=== PATIENT | female | born 1950 | race Caucasian/White ===

== ENCOUNTER 2016-11-02 14:44 | Emergency (ER) | payer OTHER ==
[~2016-11-02] VITALS: Ht 157.5 cm; Wt 82.7 kg
[~2016-11-02 14:44] MED LIST: ALBUTERO1 XX; AMT/50 PO; LORTAB OR; METO25TA31 PO; MULTI VITAMIMINERALS OR; OMEG120013 OR; PANT1TAB48 PO; STLS
[2016-11-02 14:47] VITALS: TEMP 36.7; Ht 157.5 cm; Wt 82.7 kg
[2016-11-02] MEDS ORDERED: MULT1TAB19 PO (15:11)
[2016-11-02] MEDS ORDERED: IMTIN5 (15:11)
[2016-11-02] MEDS ORDERED: METO50TA16 PO (15:11)
[2016-11-02] MEDS ORDERED: PANT40TA PO (15:11)
[2016-11-02] MEDS ORDERED: PROB1CAP PO (15:11)
[2016-11-02] MEDS ORDERED: MONT1TAB3 PO (15:11)
[2016-11-02] MEDS ORDERED: LATA0.5S OPB (15:11)
[2016-11-02] MEDS ORDERED: ALEN70TA2 PO (15:11)
[2016-11-02] MEDS ORDERED: OXYCODONE HCL IR 5 MG TAB (IMMEDIATE RELEASE) ONE (16:17)
[2016-11-02 16:25] VITALS: BP 179/83; PULSE 65; O2SAT 91
--- NOTE | 2016-11-02 16:33 | EMERGENCY ROOM VISIT NOTE ---
ED Visit Note First contact with patient: 14:56 Staff note: I have reviewed the Patients chart and have discussed this case with my PA. I generally agree with the ED note and findings.
--- NOTE | 2016-11-02 16:41 | EMERGENCY ROOM VISIT NOTE ---
History First contact with patient: 14:56 Chief Complaint: EYE ASSESSMENT Stated Complaint: SEEING COLORS AND FLASHES OF LIGHT History of Present Illness The patient is a 66 year old female who presents to the Emergency Room with complaints of flashing colored lights in the right eye and has constant thoughts of light which are like little pinpricks. She states that this is new. This just started today. The patient is currently under the care of Dr. Peterson in [place] for her right eye. She was recently diagnosed with glaucoma after being treated for iritis. She is currently on Latanoprost eyedrops. The patient has been on the drops since 10/25/2016 She is compliant. She called Dr. Peterson's office today about her new symptoms and was told the office was closing and therefore she came to the emergency room. The patient originally was seen by her family physician for her right eye discomfort. She was then referred to Dr. Schroeder ophthalmology. He then referred her to Dr. Peterson. She has been under Dr. Peterson's care since September 27.. The patient denies any headache or dizziness. The patient does admit to light sensitivity but that is not new. Review of Systems 6 system review was performed and was negative unless stated otherwise in history of present illness. Past Medical/Surgical History Sinus arrhythmia, asthma, cholecystectomy, hysterectomy, breast reduction, bowel resection, ileostomy and reversal, colostomy and reversal. Social History Smoking Status: Never Smoker Alcohol Use: none Marital Status: Occupation Status: retired Current/Historical Medications Scheduled Alendronate Sodium (Fosamax), 70 MG PO WK Latanoprost (Xalatan 0.005% Oph Liliane), 1 DROPS OPB HS Metoprolol Tartrate (Lopressor) (Lopressor), 25 MG PO QAM Montelukast Sodium (Singulair), 10 MG PO QAM Multiple Vitamins W/ Minerals (One Daily For Women 50+A), 1 TAB PO HS Pantoprazole Sodium (Protonix), 40 MG PO DAILYBB Probiotic Product (Fortify Daily Probiotic), 1 CAP PO QAM Scheduled PRN Sumatriptan Succinate (Imitrex Nasal [place]), 1 SPRAY NA DIRECTED PRN for Migraine Allergies Coded Allergies: Albuterol (Verified Allergy, Severe, HIVES, 11/02/16) Azithromycin (Verified Allergy, Severe, HIVES, 11/02/16) Cephalexin (Verified Allergy, Severe, "HEART PALPATIONS", 11/02/16) Ibuprofen (Verified Allergy, Severe, HIVES, 11/02/16) Physical Exam Vital Signs Date Time Temp Pulse Resp B/P (MAP) Pulse Ox O2 Delivery O2 Flow Rate FiO2 11/02/16 16:25 65 18 179/83 91 Room Air 11/02/16 14:47 36.7 65 18 123/76 94 Room Air Right Eye Acuity: 20/50 Left Eye Acuity: 20/30 Physical Exam GENERAL: 66-year-old white female appears in no acute distress. MENTAL Status: Alert and oriented 3. EYES: PERRLA. EOMs intact. Funduscopic was limited but no significant abnormalities noted. Visual acuity is as above with 20/50 right eye and 20/30 left eye. Average eye pressure of right eye was 15.8 and average eye pressure of left eye was 14.6. NEURO: Grossly intact. Medical Decision & Procedures Medications Administered Medications (Trade) Dose Ordered Sig/Radha Route Start Time Stop Time Status Last Admin Dose Admin Oxycodone HCl (Roxicodone Immediate Rel Tab) 10 mg STK-MED ONCE .ROUTE 11/02/16 16:17 11/02/16 16:18 DC 11/02/16 16:17 10 MG ED Course The patient was evaluated. The patient's EMR medication list were reviewed. I had the dependency case managerproduct support manager Dr. Peterson's office to see if we could get the patient's medical records concerning her right eye. The patient's medical records were reviewed from Dr. Peterson's office. The patient was given OxyIR 10 mg by mouth for eye pain. I contacted Dr. Duran by phone about the patient. He stated with her symptoms that she needs to be seen by an associate of Dr. Peterson's that is ordnance truck installation mechanic. I then contacted the eye center of [facility] and the patient was sent to their [place] office at 5:30 PM today. She will go directly from the ER. The patient was informed of the treatment plan and was in agreement. The patient was independently evaluated by Dr. Ferguson who agreed with treatment plan. The patient was discharged to go directly to the eye center of [facility] located in [place] Medical Decision The patient was evaluated. I felt that the patient needed to be evaluated by ophthalmology today. Therefore I contacted our manager commercial real estate ordnance truck installation mechanic who recommended she be seen by an manager commercial real estate within her current ophthalmology group. They've contacted and were willing to give her an appointment as soon as she leaves emergency room. Impression Primary Impression: Acute right eye pain Additional Impression: Visual changes Departure Information Dispostion Home / Self-Care Condition GOOD Referrals Steven Mckeon M.D. (PCP) Forms HOME CARE DOCUMENTATION FORM, IMPORTANT VISIT INFORMATION, WORK / SCHOOL INSTRUCTIONS Patient Instructions My [facility] Additional Instructions Go directly to the eye center of [facility] located in [place]. Problem Qualifiers
== END 2016-11-02 16:48 | disposition home or self-care (01) ==
LOC: C.EDB 14:46 → C.EDD 16:48
DX: H57.11 Ocular pain, right eye (principal); H53.8 Other visual disturbances; H40.9 Unspecified glaucoma; J45.909 Unspecified asthma, uncomplicated; I49.8 Other specified cardiac arrhythmias; Z79.899 Other long term (current) drug therapy

== ENCOUNTER 2022-01-20 20:44 | Inpatient (IN) ==
--- NOTE | 2022-01-20 22:12 | Emergency Department Note ---
Impression & Plan Lab test positive for detection of COVID-19 virus, Bronchitis, Pancytopenia, Abnormal chest x-ray ED Provider Note NAME: PAOLO CANDELARIA AGE: 71 SEX: F : 1950 ARRIVES VIA: Walk-In INFORMANT: Patient, ED PROVIDER(S): Rafael Ann DO CHIEF COMPLAINT: Cough HPI: The patient is a 71-year-old female who states that she has a history of breathing difficulties in the past who presented to the emergency department for an evaluation of difficulty breathing and cough. The patient states she has fever and cough as well as headache and malaise. She states that the symptoms began over the last few days. She has been using her inhaler at home without significant relief. She was not seen by a physician prior to coming to the emergency department this evening. She has no sick contacts but does interact with her grandchildren. She denies having any vomiting. She denies having any lower extremity swelling or pain. ROS: See above HPI for pertinent positives & negatives. A total of 10 systems reviewed and were otherwise negative. PAST MEDICAL HISTORY: See Below PAST SURGICAL HISTORY: See Below FAMILY HISTORY: See Below SOCIAL HISTORY: See Below HOME MEDICATIONS: See Below ALLERGIES: See Below VITALS: See Below PHYSICAL EXAMINATION: GENERAL: Patient is awake alert in no acute distress patient is resting comfortably and showing no signs of anxiety EYES: The conjunctivae are clear. The pupils are round and reactive. EARS, NOSE, MOUTH AND THROAT: The nose is without any evidence of any deformity. NECK: The neck is nontender and supple. RESPIRATORY: Diminished breath sounds are noted in the right lung field. There is mild wheezing in both upper lung amaya. There is no tachypnea or conversational dyspnea. CARDIOVASCULAR: Regular rate and rhythm noted there no murmurs rubs or gallops normal S1 normal S2. GASTROINTESTINAL: The abdomen is soft. Abdomen is nontender. MUSCULOSKELETAL/EXTREMITIES: There is no evidence of gross deformity full range of motion is noted in the hips and shoulders. SKIN: There is no obvious evidence of any rash. There are no petechiae, pallor or cyanosis noted. NEUROLOGIC: Patient is awake alert and oriented x3 MEDICAL DECISION MAKING: Patient is a 71-year-old female who presented to the emergency department for an evaluation of difficulty breathing. The patient did have significant difficulty breathing with any exertion. The patient appears to have more of a bronchitis at this time although chest x-ray is abnormal and shows an elevated hemidiaphragm. The patient was found to have a positive COVID test as well. She was treated with Decadron in the emergency department. She was reevaluated multiple times. The patient's condition was discussed with the on-call [facility]. They have agreed to evaluate the patient in the emergency department for further management and disposition. Triage Nursing notes reviewed. Prior medical records reviewed Vital Signs: reviewed and remarkable for low-grade fever and hypertension. Differential diagnosis: Reactive airway disease, pneumonia, pneumothorax, COPD, CHF, infections, cardiac ischemia, pulmonary embolism, musculoskeletal, gastrointestinal, as well as other pathologies. ER treatment provided: See below Diagnostics interpreted by me: ECG: EKG was obtained in the emergency department. My interpretation is normal sinus rhythm at 82 bpm. There was no ectopy. Nonspecific ST abnormalities were noted in the anterior and low lateral leads. T wave versions were noted anteriorly. This was compared to a tracing from December 22, 2020. No changes were noted. Cardiac Monitoring: An order was placed for continuous cardiac monitoring. The monitor shows a rate of 82 bpm with sinus rhythm. Laboratory studies: As stated above and show below. Imaging studies: See below Consultation(s): I discussed this case with Dr. Dougherty who is on-call for the [facility] group. Past Med/Surg History Medical History Asthma CAD (coronary artery disease) Chronic obstructive pulmonary disease Cirrhosis Cirrhosis of liver not due to alcohol Diverticulitis Esophageal varices hx of banding Fibromyalgia Glaucoma bilt HTN (hypertension) Incarcerated hernia of abdominal cavity Malignant neoplasm of left breast, stage 1, estrogen receptor positive (09/26/17) "Status post bilateral breast reduction in 1998 Status post abnormal left breast mammogram Status post ultrasound core needle biopsy September 26, 2017 Infiltrating carcinoma, grade 2 Estrogen receptor positive, progesterone receptor positive, 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 Status post needle localization lumpectomy and sentinel lymph node biopsy October 16, 2017 Stage pT1c pN0 M0 Status post completion of radiation therapy January 01, 2018. She received 5130 cGy utilizing hypo-fractionation." On 11/19/17 11:17 Blossom Brandt wrote "Status post bilateral breast reduction in 1998 Status post abnormal left breast mammogram Status post ultrasound core needle biopsy September 26, 2017 Infiltrating carcinoma, grade 2 Estrogen receptor positive, progesterone receptor positive, 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 Status post needle localization lumpectomy and sentinel lymph node biopsy October 16, 2017 Stage pT1c pN0 M0 Status post completion of radiation therapy January 01, 2018. She received 5130 centigrade utilizing hypo-fractionation. Migraine Osteoarthritis Rectal vaginal fistula Sinus arrhythmia Thyroid goiter just monitoring for now Surgical History H/O arthroscopy of right knee H/O bilateral breast reduction surgery H/O tooth extraction all teeth removed H/O: hysterectomy History of appendectomy History of bilateral cataract extraction History of bilateral salpingo-oophorectomy (BSO) History of cholecystectomy History of closure of ileostomy 1998---1 month after created History of colonoscopy History of colostomy reversal 1997--8 weeks after colectomy History of ear surgery right ear "doctor broke my ear drum to drain the fluid" History of esophagogastroduodenoscopy (EGD) History of ileostomy 1998 History of incisional hernia repair x8 History of lumpectomy of left breast with lymph node removal History of needle biopsy left breast---malignant History of partial colectomy 1997--diverticuli pocket ruptured @ [facility] History of repair of rectocele History of surgical removal of ganglion cyst right wrist History of tonsillectomy and adenoidectomy History of total right knee replacement x2 Status post correction of deviated nasal septum Status post left foot surgery planter fascitis Status post trigger finger release right thumb Family History Sister Family history of diabetes mellitus Grandfather (Paternal) Family history of diabetes mellitus Family hx of colon cancer Grandfather (Maternal) Family history of diabetes mellitus Family/Other Family history of diabetes mellitus 2 cousins Other No family history of adverse response to anesthesia Social History Smoking Status: Never smoker Second Hand Exposure: Yes ( smoked); Hx Alcohol Use: No Hx Substance Use: No Preferred Language: Yakut Communication Ability: Effective Sales Promotion Manager Required: No Beliefs That Will Affect Care: None marital status: Current Living Situation: Spouse and Family current occupational status: retired Feels Safe at Home: Yes Assistive Devices: Denture - Upper, Denture - Lower, Glasses and Walker Allergies Allergies Allergy/AdvReac Type Severity Reaction Status Date / Time albuterol Allergy Severe Hives Verified 01/20/22 22:30 cephalexin Allergy Severe "HEART Verified 01/20/22 22:30 PALPATIONS" ibuprofen Allergy Severe Hives Verified 01/20/22 22:30 azithromycin Allergy Unknown Unknown Verified 01/20/22 22:30 tramadol Allergy Unknown Unverified 01/20/22 22:31 morphine AdvReac Unknown PT STATES Verified 01/20/22 22:30 "BUILT UP A TOLERANCE TO MED, DOESN'T WORK". OPOIDS Allergy Severe DECREASE Uncoded 01/20/22 22:30 RESPIRATIONS--RECEIVED NARCAN Home Meds Home Medications Medication Instructions Recorded Confirmed calcium carbonate 600 mg-vitamin 1 cap PO BID 02/11/18 01/20/22 D3 10 mcg (400 unit) capsule anastrozole 1 mg tablet 1 mg PO QAM 04/11/18 01/20/22 latanoprost 0.005 % eye drops 1 drp OPB HS 04/11/18 01/20/22 montelukast 10 mg tablet 10 mg PO QAM 04/11/18 01/20/22 pantoprazole 40 mg tablet,delayed 40 mg PO DAILYBB 04/11/18 01/20/22 release levalbuterol tartrate 45 1 puff inhalation Q4H PRN Wheezing 11/11/18 01/20/22 mcg/actuation aerosol inhaler hydrochlorothiazide 25 mg tablet 25 mg PO QAM 01/21/19 01/20/22 milk thistle seed extract 175 mg 175 mg PO QAM 01/21/19 01/20/22 tablet psyllium husk 3.4 gram/5.4 gram 2 tsp PO TID PRN Constipation 01/21/19 01/20/22 oral powder (Metamucil) docusate sodium 100 mg capsule 100 mg PO TID PRN Constipation 07/28/19 01/20/22 (Stool Softener) acetaminophen 650 mg 650 mg PO Q8H PRN Pain 07/14/20 01/20/22 tablet,extended release (Tylenol 8 Hour) cyclosporine 0.05 % eye drops in a 1 drp ophthalmic (eye) Q12H 12/22/20 01/20/22 dropperette (Restasis) cinnamon bark 500 mg capsule 1,000 mg PO HS 01/20/22 01/20/22 (Cinnamon) cyclosporine 0.09 % eye drops in a 1 drp OPB BID 01/20/22 01/20/22 dropperette (Cequa) fluticasone propionate 110 2 puff inhalation AMPM 01/20/22 01/20/22 mcg/actuation HFA aerosol inhaler furosemide 20 mg tablet 20 mg PO QAM 01/20/22 01/20/22 garlic 100 mg tablet 1,000 mg PO BID 01/20/22 01/20/22 metoprolol tartrate 25 mg tablet 25 mg PO QAM 01/20/22 01/20/22 propranolol 10 mg tablet 10 mg PO BID 01/20/22 01/20/22 Previous Rx's Medication Instructions Recorded blood sugar diagnostic (Boost My AdsTouch #50 ea 07/15/20 Verio test strips) lancets 30 gauge (OneTouch Delica #100 ea 07/15/20 Lancets) meclizine 12.5 mg tablet 12.5 mg PO TID PRN dizziness #30 07/16/20 tabs Results & Data (ED) Vital Signs Vital Signs - 24 hr 01/20/22 20:54 01/20/22 21:52 01/20/22 21:52 Temperature 37.7 C H Temperature Source Temporal Artery Scan Pulse Rate 86 Pulse Rate [Apical] Respiratory Rate 24 Respiratory Effort / Characteristics Non-Labored Spontaneous Non-Labored Spontaneous Respiratory Depth Normal Normal Respiratory Pattern Regular Blood Pressure 152/75 H Blood Pressure [Right Arm] Blood Pressure Mean 100 Blood Pressure Mean [Right Arm] Blood Pressure Position [Right Arm] Pulse Oximetry 95 94 Oxygen Delivery Method Room Air Room Air Room Air Sepsis Recent Fever Within 48 Hours Yes Sepsis New/Unexplained Change in Mental Status N/A Sepsis Action Taken by Nursing No Action Required 01/20/22 21:52 01/20/22 21:57 01/20/22 23:00 Temperature Temperature Source Pulse Rate Pulse Rate [Apical] 80 82 Respiratory Rate 25 H 16 Respiratory Effort / Characteristics Respiratory Depth Normal Respiratory Pattern Blood Pressure Blood Pressure [Right Arm] 143/57 H 148/68 H Blood Pressure Mean Blood Pressure Mean [Right Arm] 85 94 Blood Pressure Position [Right Arm] Lying Lying Pulse Oximetry 93 93 Oxygen Delivery Method Room Air Room Air Room Air Sepsis Recent Fever Within 48 Hours Sepsis New/Unexplained Change in Mental Status Sepsis Action Taken by Shelter Medications Current Medication List: was personally reviewed by me Laboratory Data Attestation: I reviewed the patient's lab results. Result diagrams: 01/20/22 21:49 01/20/22 21:49 Lab Results 01/20/22 01/20/22 01/20/22 Range/Units 21:49 21:49 21:49 WBC 2.64 L (4.8-10.8) K/ul RBC 3.51 L (3.93-5.22) M/uL Hgb 9.9 L (12.0-16.0) g/dl Hct 31.7 L (34.1-44.9) % MCV 90.3 (80.0-100.0) fL MCH 28.2 (25.0-34.0) pg MCHC 31.2 L (32.0-36.0) g/dL RDW Std Deviation 56.8 H (36.4-46.3) fL RDW Coeff of Monster 17.2 H (11.5-14.5) % Plt Count 71 L (130-400) K/uL MPV 10.8 (9.4-12.3) fL Immature Gran % (Auto) 0.0 % Neut % (Auto) 39.7 % Lymph % (Auto) 23.1 % Fajardo % (Auto) 36.0 % Eos % (Auto) 0.8 % Baso % (Auto) 0.4 % Neut # (Auto) 1.05 L (1.4-6.5) K/uL Lymph # (Auto) 0.61 L (1.2-3.4) K/uL Fajardo # (Auto) 0.95 H (0.24-0.82) K/uL Eos # (Auto) 0.02 (0-0.50) K/uL Baso # (Auto) 0.01 (0-0.2) K/uL Immature Gran # (Auto) 0.00 (0.00-0.02) K/uL Platelet Estimate Decreased L (Normal) PT 12.4 H (9.0-12.0) Seconds INR 1.2 H (0.9-1.1) APTT 28.0 (21.0-31.0) Seconds PTT Ratio 1.0 Sodium 136 (136-145) mmol/L Potassium 3.5 (3.5-5.1) mmol/L Chloride 102 (98-107) mmol/L Carbon Dioxide 28 (21-32) mmol/L Anion Gap 6 (3-11) BUN 9 (6-23) mg/dl Creatinine 0.86 (0.6-1.2) mg/dl Est Cr Clr Drug Dosing 59.6 ml/min Est GFR ( Amer) 79.9 ml/min Est GFR (Non-Af Amer) 68.9 ml/min BUN/Creatinine Ratio 10.5 (10-20) Glucose 80 (70-99(Fasting)) mg/dl Calcium 8.5 (8.5-10.1) mg/dl Magnesium 1.6 L (1.7-2.4) mg/dl Total Bilirubin 1.0 (0.2-1.0) mg/dl AST 140 H (13-39) U/L ALT 45 (7-52) U/L Alkaline Phosphatase 102 (34-104) U/L Troponin I High Sens 11.7 (0-14) pg/ml Total Protein 6.5 (6.0-8.3) gm/dl Albumin 3.3 L (3.4-5.0) gm/dl Globulin 3.2 (2.5-4.0) gm/dl Albumin/Globulin Ratio 1.0 (0.9-2) SARS-CoV-2 (PCR) (Negative) Influenza Type A (PCR) (Neg) Influenza Type B (PCR) (Neg) RSV (RT-PCR) (Neg) 01/20/22 01/20/22 Range/Units 21:49 21:49 WBC (4.8-10.8) K/ul RBC (3.93-5.22) M/uL Hgb (12.0-16.0) g/dl Hct (34.1-44.9) % MCV (80.0-100.0) fL MCH (25.0-34.0) pg MCHC (32.0-36.0) g/dL RDW Std Deviation (36.4-46.3) fL RDW Coeff of Monster (11.5-14.5) % Plt Count (130-400) K/uL MPV (9.4-12.3) fL Immature Gran % (Auto) % Neut % (Auto) % Lymph % (Auto) % Fajardo % (Auto) % Eos % (Auto) % Baso % (Auto) % Neut # (Auto) (1.4-6.5) K/uL Lymph # (Auto) (1.2-3.4) K/uL Fajardo # (Auto) (0.24-0.82) K/uL Eos # (Auto) (0-0.50) K/uL Baso # (Auto) (0-0.2) K/uL Immature Gran # (Auto) (0.00-0.02) K/uL Platelet Estimate (Normal) PT (9.0-12.0) Seconds INR (0.9-1.1) APTT (21.0-31.0) Seconds PTT Ratio Sodium (136-145) mmol/L Potassium (3.5-5.1) mmol/L Chloride (98-107) mmol/L Carbon Dioxide (21-32) mmol/L Anion Gap (3-11) BUN (6-23) mg/dl Creatinine (0.6-1.2) mg/dl Est Cr Clr Drug Dosing ml/min Est GFR ( Amer) ml/min Est GFR (Non-Af Amer) ml/min BUN/Creatinine Ratio (10-20) Glucose (70-99(Fasting)) mg/dl Calcium (8.5-10.1) mg/dl Magnesium (1.7-2.4) mg/dl Total Bilirubin (0.2-1.0) mg/dl AST (13-39) U/L ALT (7-52) U/L Alkaline Phosphatase (34-104) U/L Troponin I High Sens Cancelled (0-14) pg/ml Total Protein (6.0-8.3) gm/dl Albumin (3.4-5.0) gm/dl Globulin (2.5-4.0) gm/dl Albumin/Globulin Ratio (0.9-2) SARS-CoV-2 (PCR) POSITIVE A* (Negative) Influenza Type A (PCR) Negative (Neg) Influenza Type B (PCR) Negative (Neg) RSV (RT-PCR) Negative (Neg) Administered Medications Discontinued Medications Acetaminophen (Acetaminophen 500 Mg Tab) 500 mg PO NOW STA Stop: 01/20/22 22:57 Last Admin: 01/20/22 23:06 Dose: 500 mg Documented By: SS Dexamethasone Sodium Phosphate (DexamethasonePf 10 Mg/Ml Vial) 10 mg IV NOW ONE Stop: 01/20/22 22:52 Last Admin: 01/20/22 23:06 Dose: 10 mg Documented By: SS Sodium Chloride (Nss 1000ml) 1,000 mls @ 999 mls/hr IV .Q1H1M ONE Stop: 01/20/22 23:52 Last Admin: 01/20/22 23:06 Dose: 999 mls/hr Documented By: SS Magnesium Sulfate/Dextrose (Magnesium Sulfate / D5w) 1 gm in 100 mls @ 100 mls/hr IV NOW STA Stop: 01/20/22 23:51 Last Admin: 01/20/22 23:07 Dose: 100 mls/hr Documented By: SS Imaging Data Attestation: I personally reviewed and interpreted this imaging study as follows: My Impression: 1 view chest x-ray was obtained in the emergency department. My interpretation is elevation of the right hemidiaphragm which is chronic. There is also increased interstitial markings in the upper lung amaya. Discharge Plan Visit Data Chief Complaint: Shortness of Breath/Dyspnea Stated Complaint: FEVER, COUGH, SOB ED Provider: Rafael Ann Discharge Problem: Lab test positive for detection of COVID-19 virus, Bronchitis, Pancytopenia, Abnormal chest x-ray Patient Disposition: Being Evaluated by Hospitalist Forms Stand Alone Forms: My [facility] Prescriptions Prescriptions: No Action calcium carbonate-vitamin D3 600 mg(1,500mg) -400 unit capsule 1 cap PO BID levalbuterol tartrate 45 mcg/actuation HFA aerosol inhaler 1 puff inhalation Q4H PRN (Reason: Wheezing) docusate sodium [Stool Softener] 100 mg Capsule 100 mg PO TID PRN (Reason: Constipation) acetaminophen [Tylenol 8 Hour] 650 mg Tablet Extended Release 650 mg PO Q8H PRN (Reason: Pain) (DME) OneTouch Verio test strips Strip See Rx Instructions .ROUTE .MEDSUPPLY Qty: 50 0RF Rx Instructions: Check Blood sugar levels once per day as advised (DME) lancets [OneTouch Delica Lancets] 30 gauge misc See Rx Instructions .ROUTE .MEDSUPPLY Qty: 100 0RF Rx Instructions: Check Blood sugar levels once per day as advised meclizine 12.5 mg Tablet 12.5 mg PO TID PRN (Reason: dizziness) Qty: 30 0RF latanoprost 0.005 % drops 1 drp OPB HS anastrozole 1 mg tablet 1 mg PO QAM pantoprazole 40 mg tablet,delayed release (DR/EC) 40 mg PO DAILYBB montelukast 10 mg tablet 10 mg PO QAM hydrochlorothiazide 25 mg Tablet 25 mg PO QAM Metamucil 3.4 gram/5.4 gram Powder 2 tsp PO TID PRN (Reason: Constipation) milk thistle seed extract 175 mg Tablet 175 mg PO QAM cyclosporine [Restasis] 0.05 % Dropperette 1 drp OPHTHALMIC (EYE) Q12H cinnamon bark [Cinnamon] 500 mg Capsule 1,000 mg PO HS fluticasone propionate 110 mcg/actuation HFA aerosol inhaler 2 puff INHALATION AMPM propranolol 10 mg tablet 10 mg PO BID garlic 100 mg Tablet 1,000 mg PO BID metoprolol tartrate 25 mg tablet 25 mg PO QAM furosemide 20 mg tablet 20 mg PO QAM Cequa 0.09 % dropperette 1 drp OPB BID Referrals Referrals: Mark Caal MD [Primary Care Provider] -
[2022-01-20 22:13] LABS: INR 1.2 (0.9-1.1); Prothrombin Time 12.4 Seconds (9.0-12.0)
[2022-01-20 22:22] LABS: Albumin Level 3.3 gm/dl (3.4-5.0); BUN Creatinine Ratio 10.5 (10-20); Calcium 8.5 mg/dl (8.5-10.1); Creatinine Clr Calc Pharmacy 59.6 ml/min; Est GFR (African American) 79.9 ml/min; Est GFR (Non-African American) 68.9 ml/min; Globulin 3.2 gm/dl (2.5-4.0); Magnesium 1.6 mg/dl (1.7-2.4); Potassium 3.5 mmol/L (3.5-5.1); Total Protein 6.5 gm/dl (6.0-8.3)
[2022-01-20 22:31] LABS: Basophils # (auto) 0.01 K/uL (0-0.2); Basophils % (auto) 0.4 %; Eosinophils # (auto) 0.02 K/uL (0-0.50); Eosinophils % (auto) 0.8 %; Hematocrit (blood only) 31.7 % (34.1-44.9); Hemoglobin 9.9 g/dl (12.0-16.0); Lymphocytes # (auto) 0.61 K/uL (1.2-3.4); Lymphocytes % (auto) 23.1 %; Mean Corpuscular Hemoglobin 28.2 pg (25.0-34.0); Mean Corpuscular Hgb Conc 31.2 g/dL (32.0-36.0); Mean Corpuscular Volume 90.3 fL (80.0-100.0); Mean Platelet Volume 10.8 fL (9.4-12.3); Monocytes # (auto) 0.95 K/uL (0.24-0.82); Neutrophils # (auto) 1.05 K/uL (1.4-6.5); Neutrophils % (auto) 39.7 %; Platelet Count 71 K/uL (130-400); Platelet Estimate Decreased (Normal); RDW Coefficient of Variation 17.2 % (11.5-14.5); RDW Standard Deviation 56.8 fL (36.4-46.3); Red Blood Count 3.51 M/uL (3.93-5.22); White Blood Count 2.64 K/ul (4.8-10.8)
[2022-01-20 22:43] LABS: Influenza A virus by PCR Negative (Neg); Influenza B virus by PCR Negative (Neg); RSV by PCR Negative (Neg)
[2022-01-20 22:44] LABS: Troponin I High Sensitivity 11.7 pg/ml (0-14)
[2022-01-20 22:45] LABS: SARS CoV2 RNA(COVID-19) InHosp POSITIVE (Negative)
[2022-01-20] MEDS ORDERED: dexAMETHasone**PF** 10 MG/ML VIAL IV ONE (22:51)
[2022-01-20] MEDS ORDERED: SODIUM CHLORIDE 0.9% 1000ML 1,000 ML IV ONE (22:52)
[2022-01-20] MEDS ORDERED: MAGNESIUM SULFATE / D5W 1 GM/100 ML BAG IV STA (22:52)
[2022-01-20] MEDS ORDERED: ACETAMINOPHEN 500 MG TAB PO STA (22:56)
[2022-01-20] MEDS ORDERED: POLYETHYLENE (MIRALAX) 17 GM PACK PO PRN (23:44)
[2022-01-20] MEDS ORDERED: ACETAMINOPHEN 325 MG TAB PO PRN (23:44)
[2022-01-20] MEDS ORDERED: LACTATED RINGER'S 500 ML IV ONE (23:48)
--- NOTE | 2022-01-21 01:25 | History & Physical Report ---
Date of Service January 21, 2022 Assessment & Plan (1) COVID-19: Plan: - fever, cough, headache for past 2-3 days - SpO2 >92-93% on RA in ED - Oxygen as needed to keep SpO2 >92% - s/p dexamethasone in ED - not requiring oxygen at this time and so will hold dexamethasone - monitor for now - supportive care (2) Pancytopenia: Plan: - WBC 2.64, hgb 9.9, PLT 71 with WBC 4.18, hgb 12.4, PLT 80s-135 on 09/2021 labs - has had leukopenia and thrombocytopenia to this degree in the past and likely related to her cirrhosis - anemia to 9.9 is lowest it has been recently - no signs of bleeding - likely in the setting of COVID19 infection - will monitor for now (3) Cirrhosis: Plan: - appears compensated without ascites on exam, AAOx3, no GI bleed noted on history or exam - continue propranolol, Lasix (4) Asthma: Plan: - not in exacerbation, no wheezes noted - continue home inhalers (5) HTN (hypertension): Plan: - continue home medications (6) Paroxysmal atrial tachycardia: Plan: - continue metoprolol Plan DVT ppx: heparin Code Status: Full Code Dispo: med/surg Raymundo Dougherty MD Hospital Medicine Admission and Anticipated Discharge Date Admission Date: 01/20/2022 History of Present Illness Chief Complaint: fever, cough Primary Care Provider: Mark Caal MD The patient is a 71 year old woman with pmh asthma, HTN, cirrhosis, pAtach, GERD, h/o breast CA s/p tx who presented with a couple days of fever, cough, shortness of breath. She reports that she has been having a dry cough for the past couple of days as well as fevers at home. She also reports headache, decrease appetite. She denies productive cough, LOC, dysuria, abdominal pain, diarrhea, nausea or vomiting. She cannot recall and other sick contacts. She lives with her who is asymptomatic. She is vaccinated fully for COVID19 with one booster. She denies tobacco or alcohol use or other drug use. In the ED, vitals were significant for SpO2 92-95%. Labs were significant for pancytopenia with WBC 2.64, hgb 9.9, PLT 71 (WBC 4.18, hgb 12.4, PLT 80s-135 on 09/2021 labs), INR 1.2, mg 1.6, AST 140, ALT 45, SARS-CoV-2 positive. CXR showed chronic right hemidiaphragm elevation. She was given 10mg dexamethasone, IVF and admitted to medicine. Allergies Allergy/AdvReac Type Severity Reaction Status Date / Time albuterol Allergy Severe Hives Verified 01/20/22 22:30 cephalexin Allergy Severe "HEART Verified 01/20/22 22:30 PALPATIONS" ibuprofen Allergy Severe Hives Verified 01/20/22 22:30 azithromycin Allergy Unknown Unknown Verified 01/20/22 22:30 tramadol Allergy Unknown Unverified 01/20/22 22:31 morphine AdvReac Unknown PT STATES Verified 01/20/22 22:30 "BUILT UP A TOLERANCE TO MED, DOESN'T WORK". OPOIDS Allergy Severe DECREASE Uncoded 01/20/22 22:30 RESPIRATIONS--RECEIVED NARCAN Home Medications Medication Instructions Recorded Confirmed Type calcium carbonate 600 mg-vitamin 1 cap PO BID 02/11/18 01/20/22 History D3 10 mcg (400 unit) capsule anastrozole 1 mg tablet 1 mg PO QAM 04/11/18 01/20/22 History latanoprost 0.005 % eye drops 1 drp OPB HS 04/11/18 01/20/22 History montelukast 10 mg tablet 10 mg PO QAM 04/11/18 01/20/22 History pantoprazole 40 mg tablet,delayed 40 mg PO DAILYBB 04/11/18 01/20/22 History release levalbuterol tartrate 45 1 puff inhalation Q4H PRN Wheezing 11/11/18 01/20/22 History mcg/actuation aerosol inhaler hydrochlorothiazide 25 mg tablet 25 mg PO QAM 01/21/19 01/20/22 History milk thistle seed extract 175 mg 175 mg PO QAM 01/21/19 01/20/22 History tablet psyllium husk 3.4 gram/5.4 gram 2 tsp PO TID PRN Constipation 01/21/19 01/20/22 History oral powder (Metamucil) docusate sodium 100 mg capsule 100 mg PO TID PRN Constipation 07/28/19 01/20/22 History (Stool Softener) acetaminophen 650 mg 650 mg PO Q8H PRN Pain 07/14/20 01/20/22 History tablet,extended release (Tylenol 8 Hour) blood sugar diagnostic (OneTouch #50 ea 07/15/20 Rx Verio test strips) lancets 30 gauge (OneTouch Delica #100 ea 07/15/20 Rx Lancets) meclizine 12.5 mg tablet 12.5 mg PO TID PRN dizziness #30 07/16/20 01/20/22 Rx tabs cyclosporine 0.05 % eye drops in a 1 drp ophthalmic (eye) Q12H 12/22/20 01/20/22 History dropperette (Restasis) cinnamon bark 500 mg capsule 1,000 mg PO HS 01/20/22 01/20/22 History (Cinnamon) cyclosporine 0.09 % eye drops in a 1 drp OPB BID 01/20/22 01/20/22 History dropperette (Cequa) fluticasone propionate 110 2 puff inhalation AMPM 01/20/22 01/20/22 History mcg/actuation HFA aerosol inhaler furosemide 20 mg tablet 20 mg PO QAM 01/20/22 01/20/22 History garlic 100 mg tablet 1,000 mg PO BID 01/20/22 01/20/22 History metoprolol tartrate 25 mg tablet 25 mg PO QAM 01/20/22 01/20/22 History propranolol 10 mg tablet 10 mg PO BID 01/20/22 01/20/22 History Past Med/Surg History Medical History Asthma CAD (coronary artery disease) Chronic obstructive pulmonary disease Cirrhosis Cirrhosis of liver not due to alcohol Diverticulitis Esophageal varices hx of banding Fibromyalgia Glaucoma bilt HTN (hypertension) Incarcerated hernia of abdominal cavity Malignant neoplasm of left breast, stage 1, estrogen receptor positive (09/26/17) "Status post bilateral breast reduction in 1998 Status post abnormal left breast mammogram Status post ultrasound core needle biopsy September 26, 2017 Infiltrating carcinoma, grade 2 Estrogen receptor positive, progesterone receptor positive, 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 Status post needle localization lumpectomy and sentinel lymph node biopsy October 16, 2017 Stage pT1c pN0 M0 Status post completion of radiation therapy January 01, 2018. She received 5130 cGy utilizing hypo-fractionation." On 11/19/17 11:17 Blossom Jenn Brandt wrote "Status post bilateral breast reduction in 1998 Status post abnormal left breast mammogram Status post ultrasound core needle biopsy September 26, 2017 Infiltrating carcinoma, grade 2 Estrogen receptor positive, progesterone receptor positive, 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 Status post needle localization lumpectomy and sentinel lymph node biopsy October 16, 2017 Stage pT1c pN0 M0 Status post completion of radiation therapy January 01, 2018. She received 5130 centigrade utilizing hypo-fractionation. Migraine Osteoarthritis Rectal vaginal fistula Sinus arrhythmia Thyroid goiter just monitoring for now Surgical History H/O arthroscopy of right knee H/O bilateral breast reduction surgery H/O tooth extraction all teeth removed H/O: hysterectomy History of appendectomy History of bilateral cataract extraction History of bilateral salpingo-oophorectomy (BSO) History of cholecystectomy History of closure of ileostomy 1998---1 month after created History of colonoscopy History of colostomy reversal 1997--8 weeks after colectomy History of ear surgery right ear "doctor broke my ear drum to drain the fluid" History of esophagogastroduodenoscopy (EGD) History of ileostomy 1999 History of incisional hernia repair x8 History of lumpectomy of left breast with lymph node removal History of needle biopsy left breast---malignant History of partial colectomy 1997--diverticuli pocket ruptured @ [facility] History of repair of rectocele History of surgical removal of ganglion cyst right wrist History of tonsillectomy and adenoidectomy History of total right knee replacement x2 Status post correction of deviated nasal septum Status post left foot surgery planter fascitis Status post trigger finger release right thumb Family History Sister Family history of diabetes mellitus Grandfather (Paternal) Family history of diabetes mellitus Family hx of colon cancer Grandfather (Maternal) Family history of diabetes mellitus Family/Other Family history of diabetes mellitus 2 cousins Other No family history of adverse response to anesthesia Social History Smoking Status: Never smoker Second Hand Exposure: Yes ( smoked); Hx Alcohol Use: No Hx Substance Use: No Preferred Language: Swazi Communication Ability: Effective Cook Relief Required: No Beliefs That Will Affect Care: None marital status: Current Living Situation: Spouse and Family current occupational status: retired Feels Safe at Home: Yes Assistive Devices: Denture - Upper, Denture - Lower, Glasses and Walker Review of Systems Review of Systems: All systems reviewed & are unremarkable except as noted in Subjective Physical Exam Constitutional: + obese; no acute distress, not ill appearing, no altered mental status and not lethargic Eyes: PERRL, conjunctivae normal, anicteric sclerae ENMT: external ear and nose normal, oropharynx normal Neck: trachea midline, no thyromegaly Respiratory: + cough, able to speak in complete sentences and + tachypneic (mild but was able to carry on full conversation without stopping for dsypne); + abnormal respiratory effort, no respiratory distress, no labored breathing and does not use accessory muscles Auscultation: lungs clear to auscultation bilaterally and + diminished lung sounds (on RLL area); no crackles, no rales, no rhonchi and no wheezes Cardiovascular: RRR, no murmur, no edema Gastrointestinal (Abdomen): normal bowel sounds, soft, nontender, no hepatosplenomegaly Musculoskeletal: no cyanosis or clubbing, extremities motor strength 5/5 trace LE edema Skin: no rashes, warm and dry Neurologic: patellar DTR's 2+ bilat, sensation intact and PERRL, EOMI, accommodation nl, no face palsy, no dysarthria Psychiatric: A+Ox3, euthymic affect Results & Data Results & Data ([facility]) Vital Signs (Past 12 Hours) Vital Signs Temp Pulse Pulse Resp BP BP Pulse Ox 01/20/22 23:00 82 16 148/68 H 93 01/20/22 21:57 01/20/22 21:52 80 25 H 143/57 H 93 01/20/22 21:52 94 01/20/22 21:52 01/20/22 20:54 37.7 C H 86 24 152/75 H 95 O2 Del Method 01/20/22 23:00 Room Air 01/20/22 21:57 Room Air 01/20/22 21:52 Room Air 01/20/22 21:52 Room Air 01/20/22 21:52 Room Air 01/20/22 20:54 Room Air Laboratory Results Short CBC 01/20/22 Range/Units 21:49 WBC 2.64 L (4.8-10.8) K/ul Hgb 9.9 L (12.0-16.0) g/dl Hct 31.7 L (34.1-44.9) % Plt Count 71 L (130-400) K/uL BMP 01/20/22 21:49 Sodium 136 Potassium 3.5 Chloride 102 Carbon Dioxide 28 BUN 9 Creatinine 0.86 Glucose 80 Calcium 8.5 Liver Function 01/20/22 Range/Units 21:49 Total Bilirubin 1.0 (0.2-1.0) mg/dl AST 140 H (13-39) U/L ALT 45 (7-52) U/L Alkaline Phosphatase 102 (34-104) U/L Albumin 3.3 L (3.4-5.0) gm/dl Medications Administered Current Inpatient Medications Acetaminophen (Acetaminophen 325 Mg Tab) 650 mg PO Q4H PRN PRN Reason: Pain or Fever Stop: 02/19/22 23:43 Heparin Sodium (Porcine) (Heparin Sod 5,000 Unit/0.5 Ml Vial) 5,000 units SQ Q8 WILLOW Stop: 02/20/22 05:59 Polyethylene Glycol (Polyethylene (Miralax) 17 Gm Pack) 17 gm PO DAILY PRN PRN Reason: Constipation Stop: 02/19/22 23:43 Code Status & VTE Plan Code Status Full Code VTE Prophylaxis Plan VTE Prophylaxis will be ordered: Yes
[2022-01-21] MEDS ORDERED: DOCUSATE SODIUM 100 MG CAP PO PRN (01:48)
[2022-01-21] MEDS ORDERED: LEVALBUTEROL TARTRATE 15 GM HFA.AER.AD INH PRN (01:48)
[2022-01-21] MEDS ORDERED: ACETAMINOPHEN 325 MG TAB PO PRN (01:48)
[2022-01-21] MEDS ORDERED: NON-FORMULARY MEDICATION (Cyclosporine [Restasis] 0.05 % Dropperette) OP SCH (01:48)
[2022-01-21] MEDS: PANTOprazole 40 MG TAB PO SCH (05:49)
[2022-01-21] MEDS ORDERED: HEPARIN SOD 5,000 UNIT/0.5 ML VIAL SQ SCH (06:00)
--- NOTE | 2022-01-21 07:21 | Electrocardiogram Report ---
Test Reason : Blood Pressure : / mmHG Vent. Rate : 082 BPM Atrial Rate : 082 BPM P-R Int : 116 ms QRS Dur : 068 ms QT Int : 366 ms P-R-T Axes : 022 024 -24 degrees QTc Int : 427 ms Normal sinus rhythm Abnormal ECG When compared with ECG of 22-DEC-2020 21:01, No significant change was found Confirmed by Shiv Olivarez ([id number]) on 01/21/2022 7:20:55 AM Referred By: REFERRED SELF Confirmed By:Kendell Olivarez
--- NOTE | 2022-01-21 07:56 | XRay Report ---
XR chest 1V portable HISTORY: Shortness of breath. COMPARISON: Chest 11/11/2018. FINDINGS: No pneumothorax. No pleural effusions. There are low lung volumes with chronic elevation of the right hemidiaphragm. Right basilar linear densities consistent with subsegmental atelectasis. Th e heart remains mildly enlarged. There is perihilar interstitial/vascular thickening likely represent ing pulmonary vascular congestion. IMPRESSION: Interval development of mild pulmonary vascular congestion. ACT 112: Negative or not required by law. Electronically signed by: Sylvester Sorensen M.D. 01/21/2022 7:54 AM
[2022-01-21 08:47] LABS: Hematocrit (blood only) 33.5 % (34.1-44.9); Hemoglobin 10.5 g/dl (12.0-16.0); Platelet Count 46 K/uL (130-400)
[2022-01-21] MEDS ORDERED: CYCLOSPORINE 0.09% OPB SCH (09:00)
[2022-01-21 09:11] LABS: INR 1.2 (0.9-1.1); Prothrombin Time 12.6 Seconds (9.0-12.0)
[2022-01-21] MEDS: FLUTICASONE FUROATE 100MCG 14 PUFFS/INHALER INH SCH (09:28)
[2022-01-21 09:41] LABS: Albumin Level 3.2 gm/dl (3.4-5.0); BUN Creatinine Ratio 16.4 (10-20); Bilirubin,Total 1.1 mg/dl (0.2-1.0); C Reactive Protein 2.5 mg/dl (0-0.5); Calcium 8.4 mg/dl (8.5-10.1); Est GFR (African American) 110.9 ml/min; Est GFR (Non-African American) 95.7 ml/min; Ferritin 23.2 ng/ml (8-388); Globulin 3.3 gm/dl (2.5-4.0); Potassium 3.9 mmol/L (3.5-5.1); Total Protein 6.5 gm/dl (6.0-8.3)
[2022-01-21 09:50] LABS: Anisocytosis Present; Mean Corpuscular Hgb Conc 31.3 g/dL (32.0-36.0); Mean Corpuscular Volume 89.3 fL (80.0-100.0); Polychromasia 1+; RDW Coefficient of Variation 17.1 % (11.5-14.5); RDW Standard Deviation 55.5 fL (36.4-46.3); Red Blood Count 3.75 M/uL (3.93-5.22)
[2022-01-21 09:52] LABS: Lymphocytes # (auto) 0.45 K/uL (1.2-3.4); Lymphocytes % (auto) 32.1 %; Monocytes # (auto) 0.09 K/uL (0.24-0.82); Monocytes % (auto) 6.4 %; Neutrophils # (auto) 0.86 K/uL (1.4-6.5); Neutrophils % (auto) 61.5 %
[2022-01-21] MEDS: METOPROLOL TARTRATE 25 MG TAB PO SCH (10:14)
[2022-01-21] MEDS: PROPRANOLOL HCL 10 MG TAB PO SCH ×2 (10:14→20:12)
[2022-01-21] MEDS: FUROSEMIDE 20 MG TAB PO SCH (10:14)
[2022-01-21] MEDS: hydroCHLOROthiazide 25 MG TAB PO SCH (10:15)
[2022-01-21] MEDS: MONTELUKAST SODIUM 10 MG TABLET PO SCH (10:15)
[2022-01-21] MEDS: CALCIUM 600MG + VIT D 400 IU TAB PO SCH ×2 (10:15→20:15)
[2022-01-21] MEDS: ANASTROZOLE 1 MG TAB PO SCH (10:26)
--- NOTE | 2022-01-21 12:51 | Hospitalist Progress Note ---
Date of Service January 21, 2022 Assessment & Plan (1) COVID-19: Plan: - fever, cough, headache for past 2-3 days - SpO2 >92-93% on RA in ED - Oxygen as needed to keep SpO2 >92% - s/p dexamethasone in ED - not requiring oxygen at this time and so will hold dexamethasone - monitor for now - supportive care (2) Pancytopenia: Plan: -Leukopenia with neutropenia, platelets count 46. - likely in the setting of COVID19 infection - will monitor for now. Will hold heparin in setting of low platelets. (3) Cirrhosis: Plan: - appears compensated without ascites on exam, AAOx3, no GI bleed noted on history or exam - continue propranolol, Lasix (4) Asthma: Plan: - not in exacerbation, no wheezes noted - continue home inhalers (5) HTN (hypertension): Plan: - continue home medications (6) Paroxysmal atrial tachycardia: Plan: - continue metoprolol Plan DVT ppx: heparin on hold Code Status: Full Code Dispo: med/surg Admission and Anticipated Discharge Date Admission Date: January 20, 2022 Subjective Patient seen and examined at bedside. She is comfortably lying in the bed; not in any acute distress. She denies any cough, fever or shortness of breath. Review of Systems Review of Systems: All systems reviewed & are unremarkable except as noted in Subjective Physical Exam Physical Exam: Constitutional: Alert oriented x3, lying in bed with no acute distress. Respiratory: Bilateral vesicular breath sounds; no added sound. Cardiovascular: RRR, no murmur, no edema Vessels: no JVD or carotid bruit Chest: normal inspection of chest Abdomen: normal bowel sounds, soft, nontender, no hepatosplenomegaly Musculoskeletal: no cyanosis or clubbing, extremities motor strength 5/5 Skin: no rashes, warm and dry normal turgor Neurologic: PERRL, EOMI, accommodation nl, no face palsy, no dysarthria CN's II- XI intact bilaterally and moves all extremities Psychiatric: A+Ox3, euthymic affect Lymphatic: no cervical or axillary lymphadenopathy : deferred Results & Data Results & Data ([facility]) Vital Signs (Past 12 Hours) Vital Signs Temp Pulse Pulse Resp BP BP Pulse Ox 01/21/22 10:15 01/21/22 08:25 36.7 C 82 16 141/68 H 92 01/21/22 01:30 01/21/22 01:30 37.4 C 76 18 129/68 95 01/21/22 01:09 77 20 129/60 92 O2 Del Method 01/21/22 10:15 Room Air 01/21/22 08:25 Room Air 01/21/22 01:30 Room Air 01/21/22 01:30 Room Air 01/21/22 01:09 Room Air COVID-19 Results Results COVID-19 Adm Lab Results: RBC 3.75 M/uL (3.93-5.22) L 01/21/22 WBC 1.40 K/ul (4.8-10.8) L 01/21/22 Hgb 10.5 g/dl (12.0-16.0) L 01/21/22 Hct 33.5 % (34.1-44.9) L 01/21/22 Plt Count 46 K/uL (130-400) L 01/21/22 Neutrophils (%) (Auto) 61.5 % 01/21/22 Lymphocytes (%) (Auto) 32.1 % 01/21/22 Monocytes # (Auto) 0.09 K/uL (0.24-0.82) L 01/21/22 Eosinophils # (Auto) 0.00 K/uL (0-0.50) 01/21/22 Immature Granulocyte % (Auto) 0.0 % 01/21/22 Neutrophils # (Auto) 0.86 K/uL (1.4-6.5) L* 01/21/22 Lymphocytes # (Auto) 0.45 K/uL (1.2-3.4) L 01/21/22 Monocytes # (Auto) 0.09 K/uL (0.24-0.82) L 01/21/22 Eosinophils # (Auto) 0.00 K/uL (0-0.50) 01/21/22 Basophils # (Auto) 0.00 K/uL (0-0.2) 01/21/22 Immature Granulocyte # (Auto) 0.00 K/uL (0.00-0.02) 2 Polychromasia 1+ 01/21/22 Anisocytosis Present 01/21/22 Na 136 mmol/L (136-145) 01/21/22 K 3.9 mmol/L (3.5-5.1) 01/21/22 Cl 106 mmol/L (98-107) 01/21/22 CO2 22 mmol/L (21-32) 01/21/22 Anion Gap 8 (3-11) 01/21/22 BUN 9 mg/dl (6-23) 01/21/22 Creatinine 0.55 mg/dl (0.6-1.2) L 01/21/22 BUN/Creatinine Ratio 16.4 (10-20) 01/21/22 Glucose Level 174 mg/dl (70-99(Fasting)) H 01/21/22 Ca 8.4 mg/dl (8.5-10.1) L 01/21/22 Phosphorus Level 3.0 mg/dl (2.5-4.9) 01/21/22 Total Bilirubin 1.1 mg/dl (0.2-1.0) H 01/21/22 AST/SGOT 149 U/L (13-39) H 01/21/22 ALT/SGPT 49 U/L (7-52) 01/21/22 Alkaline Phosphatase 102 U/L (34-104) 01/21/22 Total Protein 6.5 gm/dl (6.0-8.3) 01/21/22 Albumin 3.2 gm/dl (3.4-5.0) L 01/21/22 Globulin 3.3 gm/dl (2.5-4.0) 01/21/22 Albumin/Globulin Ratio 1.0 (0.9-2) 01/21/22 CRP 2.50 mg/dl (0-0.5) H 01/21/22 Procalcitonin 0.09 ng/ml (0-0.5) 01/21/22 Ferritin 23.2 ng/ml (8-388) 01/21/22 PTT 28.0 Seconds (21.0-31.0) 01/20/22 INR 1.2 (0.9-1.1) H 01/21/22 COVID-19 PCR POSITIVE (Negative) A* 01/20/22 Influenza Virus Type A (PCR) Negative (Neg) 01/20/22 Influenza Virus Type B (PCR) Negative (Neg) 01/20/22 Chest X-Ray 01/20/22
[2022-01-21] MEDS ORDERED: LATANOPROST 0.005% OP SOLN 2.5 ML BTL OPB SCH (21:00)
[2022-01-22] MEDS: PANTOprazole 40 MG TAB PO SCH (05:37)
[2022-01-22 07:09] LABS: BUN Creatinine Ratio 17.3 (10-20); Bilirubin,Total 0.8 mg/dl (0.2-1.0); Calcium 8.6 mg/dl (8.5-10.1); Creatinine Clr Calc Pharmacy 97.4 ml/min; Est GFR (Non-African American) 97.5 ml/min; Potassium 3.8 mmol/L (3.5-5.1)
[2022-01-22] MEDS ORDERED: cycloSPORINE (RESTASIS) OP SCH (09:00)
[2022-01-22] MEDS: MONTELUKAST SODIUM 10 MG TABLET PO SCH (09:13)
[2022-01-22] MEDS: CALCIUM 600MG + VIT D 400 IU TAB PO SCH (09:13)
[2022-01-22] MEDS: METOPROLOL TARTRATE 25 MG TAB PO SCH (09:14)
[2022-01-22] MEDS: FUROSEMIDE 20 MG TAB PO SCH (09:14)
[2022-01-22] MEDS: PROPRANOLOL HCL 10 MG TAB PO SCH (09:15)
[2022-01-22] MEDS: FLUTICASONE FUROATE 100MCG 14 PUFFS/INHALER INH SCH (09:16)
[2022-01-22] MEDS: hydroCHLOROthiazide 25 MG TAB PO SCH (09:17)
[2022-01-22 09:20] LABS: Hematocrit (blood only) 30.6 % (34.1-44.9); Hemoglobin 9.6 g/dl (12.0-16.0); Immature Granulocytes # (auto) 0.01 K/uL (0.00-0.02); Immature Granulocytes % (auto) 0.4 %; Lymphocytes # (auto) 0.61 K/uL (1.2-3.4); Lymphocytes % (auto) 23.2 %; Mean Platelet Volume 12.4 fL (9.4-12.3); Monocytes % (auto) 15.2 %; Neutrophils # (auto) 1.61 K/uL (1.4-6.5); Neutrophils % (auto) 61.2 %; Platelet Count 53 K/uL (130-400); White Blood Count 2.63 K/ul (4.8-10.8)
[2022-01-22 10:04] LABS: Mean Corpuscular Hemoglobin 28.3 pg (25.0-34.0); Mean Corpuscular Hgb Conc 31.4 g/dL (32.0-36.0); Mean Corpuscular Volume 90.3 fL (80.0-100.0); RDW Coefficient of Variation 17.2 % (11.5-14.5); RDW Standard Deviation 56.6 fL (36.4-46.3); Red Blood Count 3.39 M/uL (3.93-5.22)
[2022-01-22] MEDS: ANASTROZOLE 1 MG TAB PO SCH (10:38)
--- NOTE | 2022-01-22 16:17 | Discharge Summary ---
Date of Service January 22, 2022 Admission HPI Per Admitting Provider The patient is a 71 year old woman with pmh asthma, HTN, cirrhosis, pAtach, GERD, h/o breast CA s/p tx who presented with a couple days of fever, cough, shortness of breath. She reports that she has been having a dry cough for the past couple of days as well as fevers at home. She also reports headache, decrease appetite. She denies productive cough, LOC, dysuria, abdominal pain, diarrhea, nausea or vomiting. She cannot recall and other sick contacts. She lives with her who is asymptomatic. She is vaccinated fully for COVID19 with one booster. She denies tobacco or alcohol use or other drug use. In the ED, vitals were significant for SpO2 92-95%. Labs were significant for pancytopenia with WBC 2.64, hgb 9.9, PLT 71 (WBC 4.18, hgb 12.4, PLT 80s-135 on 09/2021 labs), INR 1.2, mg 1.6, AST 140, ALT 45, SARS-CoV-2 positive. CXR showed chronic right hemidiaphragm elevation. She was given 10mg dexamethasone, IVF and admitted to medicine. Admission Exam Per Admitting Provider Constitutional: + obese; no acute distress, not ill appe aring, no altered mental status and not lethargic Eyes: PERRL, conjunctivae normal, anicteric sclerae ENMT: external ear and nose normal, oropharynx normal Neck: trachea midline, no thyromegaly Respiratory: + cough, able to speak in complete sente nces and + tachypneic (mild but was able to carry on full conversation without stopping for dsypne); + abnormal respiratory effort, no respiratory distress, no labored breathing and does not use accessory muscles Auscultation: lungs clear to auscultation bilaterally and + diminished lung sounds (on RLL area); no crackles, no rales, no rhonchi and no wheezes Cardiovascular: RRR, no murmur, no edema Gastrointestinal (Abdomen): normal bowel sounds, soft, nontender, no hepatosplenomegaly Musculoskeletal: no cyanosis or clubbing, extremities motor strength 5/5 trace LE edema Skin: no rashes, warm and dry Neurologic: patellar DTR's 2+ bilat, sensation intact and PERRL, EOMI, accommodation nl, no face palsy, no dysarthria Psychiatric: A+Ox3, euthymic affect Principal Diagnosis 1) COVID-19 infection 2) Pancytopenia 3) Liver cirrhosis 4) Asthma 5) Hypertension 6) Paroxysmal A. fib Discharge Exam Constitutional: Alert oriented x3, lying in bed with no acute distress. Respiratory: Bilateral vesicular breath sounds; no added sound. Cardiovascular: RRR, no murmur, no edema Vessels: no JVD or carotid bruit Chest: normal inspection of chest Abdomen: normal bowel sounds, soft, nontender, no hepatosplenomegaly Musculoskeletal: no cyanosis or clubbing, extremities motor strength 5/5 Skin: no rashes, warm and dry normal turgor Neurologic: PERRL, EOMI, accommodation nl, no face palsy, no dysarthria CN's II- XI intact bilaterally and moves all extremities Psychiatric: A+Ox3, euthymic affect Lymphatic: no cervical or axillary lymphadenopathy : deferred Discharge Data Allergies Allergy/AdvReac Type Severity Reaction Status Date / Time albuterol Allergy Severe Hives Verified 01/20/22 22:30 cephalexin Allergy Severe "HEART Verified 01/20/22 22:30 PALPATIONS" ibuprofen Allergy Severe Hives Verified 01/20/22 22:30 azithromycin Allergy Unknown Unknown Verified 01/20/22 22:30 tramadol Allergy Unknown Unverified 01/20/22 22:31 morphine AdvReac Unknown PT STATES Verified 01/20/22 22:30 "BUILT UP A TOLERANCE TO MED, DOESN'T WORK". OPOIDS Allergy Severe DECREASE Uncoded 01/20/22 22:30 RESPIRATIONS--RECEIVED NARCAN Hospital Course (1) COVID-19: (2) Pancytopenia: (3) Paroxysmal atrial tachycardia: (4) Cirrhosis: (5) Diabetes: Plan The patient is a 71 year old woman with pmh asthma, HTN, cirrhosis, pAtach, GERD, h/o breast CA s/p tx who presented with a couple days of fever, cough, shortness of breath. She was found to have COVID-19 infection. She was also found to have pancytopenia and elevated liver enzyme. Patient was given IV fluids and 10 mg dexamethasone and was admitted to general medical floor. Patient was monitored for hypoxia throughout the hospital stay. She did not require any supplemental oxygen during her stay. Her pancytopenia slightly improved on the day of the discharge. Her pancytopenia was thought secondary to COVID-19 infection and cirrhosis. Patient was discharged home with cough syrup and was instructed to follow-up with her primary care doctor to repeat CBC and CMP to follow-up on the pancytopenia. Patient's cough and shortness of breath had improved on discharge. Total Time Total Time Spent Total Time Spent (In Minutes): 35 Total Time Includes: Examination of the Patient, Discharge Planning, Medication Reconciliation, Communication With Other Providers and Other Discharge Plan Discharge Items Patient Disposition: Home - Self-Care Reason For Visit: COUGH, FEVER Discharge Diagnosis: 1) COVID-19 infection 2) Pancytopenia 3) Compensated liver cirrhosis Activity: Resume your previous activity Non-emergency contact: Primary Care Provider Call non-emergency contact if: you have any medication questions, your symptoms worsen and your temperature is above 101.5 Follow-up/Referrals: Mark Caal MD [Primary Care Provider] - Diet: Regular Addtl Attending Provider Instructions: You were admitted to the hospital with COVID-19 infection. You are found to have low blood counts. Please follow the following instructions: 1) You are prescribed a cough syrup. You can pick it up from your pharmacy; take 10 mL as needed every 6 hours. 2) please follow-up with your primary care doctor next week and get the following labs done. a) Complete Blood Count b) Comprehensive Metabolic Panel Please continue to take other medications as prescribed before. Pending Studies at Discharge: No Stand-Alone Forms: My [employer], Smoking Cessation Medications and DC Order Prescriptions: New guaifenesin [Cough Syrup] 100 mg/5 mL liquid 200 mg PO Q6H PRN (Reason: cough) Qty: 473 0RF Continued calcium carbonate-vitamin D3 600 mg(1,500mg) -400 unit capsule 1 cap PO BID levalbuterol tartrate 45 mcg/actuation HFA aerosol inhaler 1 puff inhalation Q4H PRN (Reason: Wheezing) docusate sodium [Stool Softener] 100 mg Capsule 100 mg PO TID PRN (Reason: Constipation) acetaminophen [Tylenol 8 Hour] 650 mg Tablet Extended Release 650 mg PO Q8H PRN (Reason: Pain) (DME) OneTouch Verio test strips Strip See Rx Instructions .ROUTE .MEDSUPPLY Qty: 50 0RF Rx Instructions: Check Blood sugar levels once per day as advised (DME) lancets [OneTouch Delica Lancets] 30 gauge misc See Rx Instructions .ROUTE .MEDSUPPLY Qty: 100 0RF Rx Instructions: Check Blood sugar levels once per day as advised meclizine 12.5 mg Tablet 12.5 mg PO TID PRN (Reason: dizziness) Qty: 30 0RF latanoprost 0.005 % drops 1 drp OPB HS anastrozole 1 mg tablet 1 mg PO QAM pantoprazole 40 mg tablet,delayed release (DR/EC) 40 mg PO DAILYBB montelukast 10 mg tablet 10 mg PO QAM Metamucil 3.4 gram/5.4 gram Powder 2 tsp PO TID PRN (Reason: Constipation) milk thistle seed extract 175 mg Tablet 175 mg PO QAM cyclosporine [Restasis] 0.05 % Dropperette 1 drp OPHTHALMIC (EYE) Q12H cinnamon bark [Cinnamon] 500 mg Capsule 1,000 mg PO HS fluticasone propionate 110 mcg/actuation HFA aerosol inhaler 2 puff INHALATION AMPM propranolol 10 mg tablet 10 mg PO BID garlic 100 mg Tablet 1,000 mg PO BID furosemide 20 mg tablet 20 mg PO QAM Cequa 0.09 % dropperette 1 drp OPB BID Discharge Orders: Discharge Order (Routine); Ordered 01/22/22 Ordered By: Luis Sebastian/Other Patient Handouts: COVID-19 Home Care Admission Data Admit Date/Time: 01/20/22 23:44 Attending Provider: Luis Wright Admit Provider: Raymundo Dougherty Primary Care Provider: Mark Caal Other Providers: Raymundo Dougherty Other Interventions: Discharge Summary Assessment (RN) Last Done: 01/22/22 10:55
== END 2022-01-22 14:07 | disposition home or self-care (01) | DRG 178 ==
LOC: ED 20:44 → SUATTDRO 23:44 → 3W 23:44

== ENCOUNTER 2023-02-27 15:56 | Inpatient (IN) ==
[2023-02-27 17:23] LABS: Albumin Globulin Ratio 0.9 (0.9-2); Albumin Level 3.2 gm/dl (3.4-5.0); BUN Creatinine Ratio 17.2 (10-20); Bilirubin,Total 2.3 mg/dl (0.2-1.0); Calcium 8.2 mg/dl (8.6-10.3); Creatinine Clr Calc Pharmacy 76.1 ml/min; Est GFR (African American) 104.1 ml/min; Est GFR (Non-African American) 89.8 ml/min; Globulin 3.6 gm/dl (2.5-4.0); Potassium 3.3 mmol/L (3.5-5.1); Total Protein 6.8 gm/dl (6.0-8.3)
[2023-02-27 17:48] LABS: Basophils # (auto) 0.02 K/uL (0.00-0.20); Basophils % (auto) 0.4 %; Eosinophils # (auto) 0.14 K/uL (0.00-0.50); Eosinophils % (auto) 2.5 %; Immature Granulocytes # (auto) 0.02 K/uL (0.01-0.20); Immature Granulocytes % (auto) 0.4 %; Lymphocytes # (auto) 0.84 K/uL (1.20-3.40); Lymphocytes % (auto) 15.2 %; Monocytes # (auto) 1.13 K/uL (0.11-0.59); Monocytes % (auto) 20.4 %; Neutrophils # (auto) 3.38 K/uL (1.40-6.50); Neutrophils % (auto) 61.1 %
[2023-02-27 17:49] LABS: Hematocrit (blood only) 38.3 % (37.0-47.0); Hemoglobin 13.1 g/dl (12.0-16.0); Mean Corpuscular Hemoglobin 33.7 pg (25.0-34.0); Mean Corpuscular Hgb Conc 34.2 g/dL (32.0-36.0); Mean Corpuscular Volume 98.5 fL (80.0-100.0); Mean Platelet Volume 9.7 fL (9.4-12.4); Platelet Count 138 K/uL (130-400); RDW Coefficient of Variation 15.9 % (11.5-14.5); RDW Standard Deviation 57.2 fL (36.4-46.3); Red Blood Count 3.89 M/uL (4.20-5.40); White Blood Count 5.53 K/ul (4.8-10.8)
--- NOTE | 2023-02-27 19:36 | Emergency Department Note ---
Impression & Plan Anasarca, Cirrhosis ED Provider Note ED Provider Note NAME: PAOLO CANDELARIA AGE:73 SEX: Female : 1950 ARRIVES VIA: Private vehicle INFORMANT: Patient ED PROVIDER(s): Jannie Zhang DO CHIEF COMPLAINT: Swelling HPI: This is a 73-year-old female presents emerged department due to concern for persistent swelling and states she was told to come here by her GI doctor, Dr. Elizabeth. Patient with a history of cirrhosis. She does typically take diuretics daily. She states last week she presented due to concern for increased swelling and was told to increase her diuretics at home. She states she has been doing that and while she is peeing more she does not feel as though her overall fluid is improving. Patient states she has swelling in her legs as well as on her abdomen. She denies fevers, chills, and states she feels a sense of pressure and tightness in the abdomen. She states the discomfort has caused her to have a decreased appetite although no overt nausea or vomiting. Patient denies any other recent change in diet or activity. PAST MEDICAL HISTORY:See Below PAST SURGICAL HISTORY:See Below FAMILY HISTORY:See Below SOCIAL HISTORY:See Below HOME MEDICATIONS:See Below ALLERGIES:See Below VITALS:See Below PHYSICAL EXAMINATION: GENERAL: alert, well appearing, well nourished, no distress, non-toxic EYE EXAM: normal conjunctiva, PERRL and EOM's grossly intact OROPHARYNX: no exudate, no erythema, lips, buccal mucosa, and tongue normal and mucous membranes are moist NECK: supple, no nuchal rigidity, no adenopathy, non-tender LUNGS: Clear to auscultation. Normal chest wall mechanics, no w/r/r HEART: no murmurs, S1 normal and S2 normal ABDOMEN: abdomen soft, mild generalized discomfort with palpation, normo-active bowel sounds, no masses, no rebound or guarding. BACK: Back is symmetrical on inspection and there is no deformity, no midline tenderness, no CVA tenderness. SKIN: no rashes, petechiae, orbruising UPPER EXTREMITIES: upper extremities are grossly normal. FROM, nml pulses b/l. LOWER EXTREMITIES: 3+ b/l pitting edema. FROM, nml pulses b/l. NEURO EXAM: Normal sensorium, cranial nerves II-XII grossly intact, normal speech, no facial droop,nogross weakness of arms, no gross weakness of legs. Gross sensation intact. No ataxia. Vital Signs: reviewed and remarkable Differential Diagnosis: ascites, anasarca, DOLORES, medication adr, hypoalbuminemia, as well as others were considered MEDICAL DECISION MAKING: THis is a 73 yo female who presents due to concern for persistent edema in leg and abdomen despite use of diuretics. Patient stated she was instructed to come here by GI who she follows with for cirrhosis. She was afebrile and VS stable. Labs drawn and sent, IV established, EKG and CXR performed and interpreted at bedside, and patient placed on telemetry. I reviewed labs and recent CT with the patient and we discussed other options for treatment. Patient is interested in possible paracentesis. I do not suspect SBP or feel she needs this chelsea gently in the ER. Coags added in preparation for possible procedure. I did not feel she required repeat CT. [facility]. Patient also noted to have mildly elevated ammonia although is not clinically encephalopathic. Consultation(s): 2030: Discussed with Dr. Mcbride for additional evaluation/mgmt. ER Treatment Provided: See below Diagnostics Interpreted By Me: -ECG: sinus tachycardia at 105, nml axis, nonspecific ST/T wave changes -Cardiac Monitoring: An order was placed for continuous cardiac monitoring. The monitor shows a rate of 99 with normal sinus rhythm. -Laboratory studies: As stated above and show below. 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 Status post needle localization lumpectomy and sentinel lymph node biopsy October 16, 2017 Stage pT1c pN0 M0 Status post completion of radiation therapy January 01, 2018. She received 5130 cGy utilizing hypo-fractionation." On 11/19/17 11:17 Blossom Brandt wrote "Status post bilateral breast reduction in 1998 Status post abnormal left breast mammogram Status post ultrasound core needle biopsy September 26, 2017 Infiltrating carcinoma, grade 2 Estrogen receptor positive, progesterone receptor positive, 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 Status post needle localization lumpectomy and sentinel lymph node biopsy October 16, 2017 Stage pT1c pN0 M0 Status post completion of radiation therapy January 01, 2018. She received 5130 centigrade utilizing hypo-fractionation. Migraine Osteoarthritis Paroxysmal atrial tachycardia Rectal vaginal fistula Sinus arrhythmia Thyroid goiter just monitoring for now Surgical History H/O arthroscopy of right knee H/O bilateral breast reduction surgery H/O tooth extraction all teeth removed H/O: hysterectomy History of appendectomy History of bilateral cataract extraction History of bilateral salpingo-oophorectomy (BSO) History of cholecystectomy History of closure of ileostomy 1998---1 month after created History of colonoscopy History of colostomy reversal 1997--8 weeks after colectomy History of ear surgery right ear "doctor broke my ear drum to drain the fluid" History of esophagogastroduodenoscopy (EGD) History of ileostomy 1998 History of incisional hernia repair x8 History of lumpectomy of left breast with lymph node removal History of needle biopsy left breast---malignant History of partial colectomy 1997--diverticuli pocket ruptured @ [facility] History of repair of rectocele History of surgical removal of ganglion cyst right wrist History of tonsillectomy and adenoidectomy History of total right knee replacement x2 Status post correction of deviated nasal septum Status post left foot surgery planter fascitis Status post trigger finger release right thumb Family History Sister Family history of diabetes mellitus Grandfather (Paternal) Family history of diabetes mellitus Family hx of colon cancer Grandfather (Maternal) Family history of diabetes mellitus Family/Other Family history of diabetes mellitus 2 cousins Other No family history of adverse response to anesthesia Social History Smoking Status: Never smoker Second Hand Exposure: Yes ( smoked); Do You Dip or Chew Tobacco: No; Hx Alcohol Use: No Hx Substance Use: No Preferred Language: Serbian Communication Ability: Effective 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: No Beliefs That Will Affect Care: None marital status: Current Living Situation: Spouse current occupational status: retired How many Children do You have: 1 Other Information That Helps Us Care for You: No Feels Safe at Home: Yes Safety Concerns: Feels Safe At This Time Assistive Devices: Cane Allergies Allergies Allergy/AdvReac Type Severity Reaction Status Date / Time albuterol Allergy Severe HIVES, Verified 02/27/23 20:48 DIFFICULTY WALKING, SHAKINESS, STUTTERING azithromycin Allergy Severe SHORT OF Verified 02/27/23 20:48 BREATH, PALPITATIONS tramadol Allergy Severe SEE COMMENT Verified 02/27/23 20:48 ibuprofen Allergy Intermediate Hives Verified 02/27/23 20:48 cephalexin AdvReac Severe "HEART Verified 02/27/23 20:48 PALPATIONS" morphine AdvReac Unknown PT STATES Verified 02/27/23 20:48 "BUILT UP A TOLERANCE TO MED, DOESN'T WORK". OPOIDS Allergy Severe DECREASE Uncoded 02/27/23 20:48 RESPIRATIONS--RECEIVED NARCAN Home Meds Home Medications Medication Instructions Recorded Confirmed calcium carbonate 600 mg-vitamin 1 cap PO BID 02/11/18 02/27/23 D3 10 mcg (400 unit) capsule anastrozole 1 mg tablet 1 mg PO QAM 04/11/18 02/27/23 latanoprost 0.005 % eye drops 1 drp OPB HS 04/11/18 02/27/23 montelukast 10 mg tablet 10 mg PO QAM 04/11/18 02/27/23 pantoprazole 40 mg tablet,delayed 40 mg PO DAILYBB 04/11/18 02/27/23 release levalbuterol tartrate 45 1 puff inhalation Q4H PRN Wheezing 11/11/18 02/27/23 mcg/actuation aerosol inhaler milk thistle seed extract 175 mg 175 mg PO QAM 01/21/19 02/27/23 tablet psyllium husk 3.4 gram/5.4 gram 2 tsp PO TID PRN Constipation 01/21/19 02/27/23 oral powder (Metamucil) docusate sodium 100 mg capsule 100 mg PO TID PRN Constipation 07/28/19 02/27/23 (Stool Softener) acetaminophen 650 mg 650 mg PO Q8H PRN Pain 07/14/20 02/27/23 tablet,extended release (Tylenol 8 Hour) cyclosporine 0.05 % eye drops in a 1 drp ophthalmic (eye) QAM 12/22/20 02/27/23 dropperette (Restasis) cinnamon bark 500 mg capsule 1,000 mg PO BID 01/20/22 02/27/23 (Cinnamon) fluticasone propionate 110 2 puff inhalation AMPM 01/20/22 02/27/23 mcg/actuation HFA aerosol inhaler garlic 100 mg tablet 1,000 mg PO BID 01/20/22 02/27/23 amlodipine 10 mg tablet 10 mg PO DAILY 08/07/22 02/27/23 spironolactone 50 mg tablet 50 mg PO QAM 08/07/22 02/27/23 torsemide 20 mg tablet 40 mg PO DAILY 02/28/23 02/28/23 Previous Rx's Medication Instructions Recorded blood sugar diagnostic (Advanced Medical InnovationsTouch #50 ea 07/15/20 Verio test strips) lancets 30 gauge (OneTouch Delica #100 ea 07/15/20 Lancets) guaifenesin 100 mg/5 mL oral 200 mg (10 mL) PO Q6H PRN cough 01/22/22 liquid (Cough Syrup) #473 mL Results & Data (ED) Vital Signs Vital Signs - 24 hr 02/27/23 16:18 02/27/23 19:53 Temperature 36.7 C Temperature Source Skin Pulse Rate 110 H 98 H Respiratory Rate 18 Blood Pressure 143/77 H Blood Pressure Mean 99 Pulse Oximetry 91 Oxygen Delivery Method Room Air Sepsis Recent Fever Within 48 Hours No Sepsis New/Unexplained Change in Mental Status No Sepsis Action Taken by Nursing No Action Required Laboratory Data 02/27/23 16:40 02/27/23 16:40 Lab Results 02/27/23 02/27/23 02/27/23 Range/Units 16:40 16:40 16:40 WBC 5.53 (4.8-10.8) K/ul RBC 3.89 L (4.20-5.40) M/uL Hgb 13.1 (12.0-16.0) g/dl Hct 38.3 (37.0-47.0) % MCV 98.5 (80.0-100.0) fL MCH 33.7 (25.0-34.0) pg MCHC 34.2 (32.0-36.0) g/dL RDW Std Deviation 57.2 H (36.4-46.3) fL RDW Coeff of Monster 15.9 H (11.5-14.5) % Plt Count 138 (130-400) K/uL MPV 9.7 (9.4-12.4) fL Immature Gran % (Auto) 0.4 % Neut % (Auto) 61.1 % Lymph % (Auto) 15.2 % Sanders % (Auto) 20.4 % Eos % (Auto) 2.5 % Baso % (Auto) 0.4 % Neut # (Auto) 3.38 (1.40-6.50) K/uL Lymph # (Auto) 0.84 L (1.20-3.40) K/uL Sanders # (Auto) 1.13 H (0.11-0.59) K/uL Eos # (Auto) 0.14 (0.00-0.50) K/uL Baso # (Auto) 0.02 (0.00-0.20) K/uL Immature Gran # (Auto) 0.02 (0.01-0.20) K/uL PT (9.0-12.0) Seconds INR (0.9-1.1) Sodium 134 L (136-145) mmol/L Potassium 3.3 L (3.5-5.1) mmol/L Chloride 98 (98-107) mmol/L Carbon Dioxide 28 (21-32) mmol/L Anion Gap 8 (3-11) BUN 11 (6-23) mg/dl Creatinine 0.64 (0.6-1.2) mg/dl Est Cr Clr Drug Dosing 76.1 ml/min Est GFR ( Amer) 104.1 ml/min Est GFR (Non-Af Amer) 89.8 ml/min BUN/Creatinine Ratio 17.2 (10-20) Glucose 145 H (70-99(Fasting)) mg/dl Calcium 8.2 L (8.6-10.3) mg/dl Magnesium 1.5 L (1.7-2.4) mg/dl Total Bilirubin 2.3 H (0.2-1.0) mg/dl AST 52 H (13-39) U/L ALT 23 (7-52) U/L Alkaline Phosphatase 99 (34-104) U/L Ammonia 76.0 H (18-72) umol/L Total Protein 6.8 (6.0-8.3) gm/dl Albumin 3.2 L (3.4-5.0) gm/dl Globulin 3.6 (2.5-4.0) gm/dl Albumin/Globulin Ratio 0.9 (0.9-2) 02/27/23 Range/Units 16:42 WBC (4.8-10.8) K/ul RBC (4.20-5.40) M/uL Hgb (12.0-16.0) g/dl Hct (37.0-47.0) % MCV (80.0-100.0) fL MCH (25.0-34.0) pg MCHC (32.0-36.0) g/dL RDW Std Deviation (36.4-46.3) fL RDW Coeff of Monster (11.5-14.5) % Plt Count (130-400) K/uL MPV (9.4-12.4) fL Immature Gran % (Auto) % Neut % (Auto) % Lymph % (Auto) % Sanders % (Auto) % Eos % (Auto) % Baso % (Auto) % Neut # (Auto) (1.40-6.50) K/uL Lymph # (Auto) (1.20-3.40) K/uL Sanders # (Auto) (0.11-0.59) K/uL Eos # (Auto) (0.00-0.50) K/uL Baso # (Auto) (0.00-0.20) K/uL Immature Gran # (Auto) (0.01-0.20) K/uL PT 12.8 H (9.0-12.0) Seconds INR 1.2 H (0.9-1.1) Sodium (136-145) mmol/L Potassium (3.5-5.1) mmol/L Chloride (98-107) mmol/L Carbon Dioxide (21-32) mmol/L Anion Gap (3-11) BUN (6-23) mg/dl Creatinine (0.6-1.2) mg/dl Est Cr Clr Drug Dosing ml/min Est GFR ( Amer) ml/min Est GFR (Non-Af Amer) ml/min BUN/Creatinine Ratio (10-20) Glucose (70-99(Fasting)) mg/dl Calcium (8.6-10.3) mg/dl Magnesium (1.7-2.4) mg/dl Total Bilirubin (0.2-1.0) mg/dl AST (13-39) U/L ALT (7-52) U/L Alkaline Phosphatase (34-104) U/L Ammonia (18-72) umol/L Total Protein (6.0-8.3) gm/dl Albumin (3.4-5.0) gm/dl Globulin (2.5-4.0) gm/dl Albumin/Globulin Ratio (0.9-2) Administered Medications Amlodipine Besylate (Amlodipine Besylate 5 Mg Tab) 10 mg PO DAILY WILLOW Stop: 03/30/23 08:59 Last Admin: 03/01/23 08:56 Dose: 10 mg Documented By: Admin: 02/28/23 09:40 Dose: 10 mg Documented By: TESSIE Anastrozole (Anastrozole 1 Mg Tab) 1 mg PO QAM [facility] Stop: 03/30/23 08:59 Last Admin: 03/01/23 08:55 Dose: 1 mg Documented By: PATRICIA Co-signed By: LUIS Admin: 02/28/23 09:41 Dose: 1 mg Documented By: TESSIE Co-signed By: JJ Calcium/Vitamin D (Calcium 600mg + Vit D 400 Iu Tab) 1 tab PO BID WILLOW Stop: 03/30/23 08:59 Last Admin: 03/01/23 08:56 Dose: 1 tab Documented By: Admin: 02/28/23 21:17 Dose: 1 tab Documented By: Admin: 02/28/23 09:41 Dose: 1 tab Documented By: TESSIE Tovar Syrup (Tovar Syrup 5 Ml Udp) 5 ml PO Q6 [facility]OW Stop: 03/10/23 15:59 Last Admin: 03/01/23 12:53 Dose: 5 ml Documented By: Admin: 03/01/23 06:08 Dose: 5 ml Documented By: Admin: 03/01/23 00:30 Dose: 5 ml Documented By: Admin: 02/28/23 18:21 Dose: 5 ml Documented By: Admin: 02/28/23 18:20 Dose: Not Given Documented By: AMS Fluticasone Furoate (Fluticasone Furoate 200mcg 14 Puffs/Inhaler) 1 puffs INH QAM [facility] Stop: 03/30/23 08:59 Last Admin: 03/01/23 08:56 Dose: 1 puffs Documented By: Admin: 02/28/23 09:42 Dose: 1 puffs Documented By: TESSIE Furosemide (Furosemide 40 Mg/4 Ml Vial) 40 mg IV BIDM [facility] Stop: 03/30/23 10:59 Last Admin: 02/28/23 12:12 Dose: 40 mg Documented By: TESSIE Heparin Sodium (Porcine) (Heparin Sod 5,000 Unit/0.5 Ml Vial) 5,000 units SQ Q12 [facility] Stop: 03/30/23 01:08 Last Admin: 03/01/23 08:57 Dose: 5,000 units Documented By: Admin: 02/28/23 21:18 Dose: 5,000 units Documented By: Admin: 02/28/23 09:41 Dose: 5,000 units Documented By: Admin: 02/28/23 02:18 Dose: 5,000 units Documented By: AMADOR Promethazine HCl 6.25 mg/ (Sodium Chloride) 50.25 mls @ 201 mls/hr IV Q6H PRN PRN Reason: Nausea And Vomiting Stop: 03/30/23 08:19 Last Infusion: 02/28/23 10:01 Dose: 0 mls/hr Documented By: Admin: 02/28/23 09:40 Dose: 201 mls/hr Documented By: TESSIE Latanoprost (Latanoprost 0.005% Op Soln 2.5 Ml Btl) 1 drops OPB HS [facility] Stop: 03/30/23 20:59 Last Admin: 02/28/23 22:10 Dose: 1 drops Documented By: RES Magnesium Chloride (Magnesium Chloride W/Calcium 64mg Delayed Rel Tab) 64 mg PO BID [facility] Stop: 03/30/23 08:59 Last Admin: 03/01/23 08:56 Dose: 64 mg Documented By: Admin: 02/28/23 21:18 Dose: 64 mg Documented By: Admin: 02/28/23 09:41 Dose: 64 mg Documented By: AMS Montelukast Sodium (Montelukast Sodium 10 Mg Tablet) 10 mg PO QAM [facility] Stop: 03/30/23 08:59 Last Admin: 03/01/23 08:56 Dose: 10 mg Documented By: Admin: 02/28/23 09:41 Dose: 10 mg Documented By: AMS Nystatin (Nystatin Cr 15 Gm Tube) 1 appln EXT BID [facility] Stop: 03/30/23 01:08 Last Admin: 03/01/23 08:57 Dose: 1 appln Documented By: Admin: 02/28/23 21:19 Dose: 1 appln Documented By: Admin: 02/28/23 09:42 Dose: 1 appln Documented By: Admin: 02/28/23 02:18 Dose: 1 appln Documented By: RES Pantoprazole Sodium (Pantoprazole 40 Mg Tab) 40 mg PO DAILYBB [facility] Stop: 03/30/23 06:29 Last Admin: 03/01/23 06:08 Dose: 40 mg Documented By: Admin: 02/28/23 06:16 Dose: 40 mg Documented By: TKB Spironolactone (Spironolactone 100 Mg Tab) 100 mg PO QAM [facility] Stop: 03/31/23 08:59 Last Admin: 03/01/23 09:49 Dose: 100 mg Documented By: CMV Torsemide (Torsemide 10 Mg Tab) 10 mg PO QAM [facility] Stop: 03/31/23 08:59 Last Admin: 03/01/23 09:49 Dose: 10 mg Documented By: CMV Vancomycin HCl (Vancomycin Hcl 125 Mg/2.5ml Soln) 125 mg PO Q6 [facility] Stop: 03/10/23 15:59 Last Admin: 03/01/23 12:53 Dose: 125 mg Documented By: Admin: 03/01/23 06:08 Dose: 125 mg Documented By: Admin: 03/01/23 00:30 Dose: 125 mg Documented By: Admin: 02/28/23 18:21 Dose: 125 mg Documented By: Admin: 02/28/23 18:21 Dose: Not Given Documented By: AMS Discontinued Medications Diphenhydramine HCl (Diphenhydramine Capsule 25 Mg Cap) 25 mg PO NOW ONE Stop: 02/28/23 04:03 Last Admin: 02/28/23 04:20 Dose: 25 mg Documented By: PLF Furosemide (Furosemide 40 Mg/4 Ml Vial) 40 mg IV ONE ONE Stop: 02/28/23 01:31 Last Admin: 02/28/23 02:19 Dose: 40 mg Documented By: RES Ciprofloxacin (Cipro / D5w) 400 mg in 200 mls @ 100 mls/hr IV Q12H WILL[facility]; Protocol Stop: 03/10/23 01:59 Last Infusion: 02/28/23 16:19 Dose: 0 mls/hr Documented By: Admin: 02/28/23 14:52 Dose: 100 mls/hr Documented By: Infusion: 02/28/23 05:05 Dose: 0 mls/hr Documented By: Admin: 02/28/23 02:20 Dose: 100 mls/hr Documented By: AMADOR Metronidazole (Flagyl) 500 mg in 100 mls @ 100 mls/hr IV Q8H WILLOW; Protocol Stop: 03/10/23 01:59 Last Infusion: 02/28/23 12:03 Dose: 0 mls/hr Documented By: Admin: 02/28/23 10:51 Dose: 100 mls/hr Documented By: Infusion: 02/28/23 04:05 Dose: 0 mls/hr Documented By: Admin: 02/28/23 02:20 Dose: 100 mls/hr Documented By: AMADOR Magnesium Sulfate/Dextrose (Magnesium Sulfate / D5w) 1 gm in 100 mls @ 50 mls/hr IV Q2H [facility] Stop: 02/28/23 07:29 Last Infusion: 02/28/23 09:59 Dose: 0 mls/hr Documented By: Admin: 02/28/23 07:42 Dose: 50 mls/hr Documented By: Infusion: 02/28/23 07:05 Dose: 50 mls/hr Documented By: Admin: 02/28/23 05:05 Dose: 50 mls/hr Documented By: PLF Sodium Phosphate 12 mmol/ (Sodium Chloride) 254 mls @ 84 mls/hr IV ONE ONE Stop: 02/28/23 11:46 Last Infusion: 02/28/23 13:59 Dose: 0 mls/hr Documented By: Admin: 02/28/23 10:00 Dose: 84 mls/hr Documented By: TESSIE Ioversol (Optiray 320 100ml) 92 ml IV ONCE ONE Stop: 03/01/23 11:46 Last Admin: 03/01/23 11:46 Dose: 92 ml Documented By: OLIMPIAK Lactulose (Lactulose Syrup 30 Gm/45 Ml Udp) 30 gm PO 0600 ONE Stop: 02/28/23 06:01 Last Admin: 02/28/23 06:16 Dose: 30 gm Documented By: TKB Potassium Chloride (Potassium Chloride Crtab 20 Meq Tabcr) 40 meq PO NOW STA Stop: 02/28/23 01:28 Last Admin: 02/28/23 02:19 Dose: 40 meq Documented By: AMADOR Potassium Chloride (Potassium Chloride Crtab 20 Meq Tabcr) 40 meq PO ONE ONE Stop: 02/28/23 08:20 Last Admin: 02/28/23 09:55 Dose: 40 meq Documented By: TESSIE Spironolactone (Spironolactone 25 Mg Tab) [facility] [place] Stop: 03/30/23 08:59 Last Admin: 02/28/23 09:41 Dose: 50 mg Documented By: TESSIE Discharge Plan Visit Data Chief Complaint: Referred by Doctor Stated Complaint: REF BY FOR SWELLING ED Provider: Jannie Zhang Discharge Problem: Anasarca, Cirrhosis Patient Disposition: Admitted As Inpatient Discharge Instructions Interventions: ED Discharge Assessment Last Done: 02/27/23 23:59
[2023-02-27 19:50] LABS: Magnesium 1.5 mg/dl (1.7-2.4)
[2023-02-27 20:29] LABS: INR 1.2 (0.9-1.1); Prothrombin Time 12.8 Seconds (9.0-12.0)
[2023-02-28] MEDS ORDERED: LEVALBUTEROL TARTRATE 15 GM HFA.AER.AD INH PRN (01:09)
[2023-02-28] MEDS ORDERED: guaiFENesin SUGAR FREE 200 MG/10 ML UDC PO PRN (01:25)
[2023-02-28] MEDS ORDERED: POTASSIUM CHLORIDE CRTAB 20 MEQ TABCR PO STA (01:27)
[2023-02-28] MEDS ORDERED: ARTIFICIAL TEARS OP PRN (01:28)
[2023-02-28] MEDS ORDERED: FUROSEMIDE 40 MG/4 ML VIAL IV ONE (01:30)
--- NOTE | 2023-02-28 01:53 | Ultrasound Report ---
Exam(s): US VENOUS BILATERAL LOWER EXTREMITIES EXAM: US Duplex Bilateral Lower Extremities Veins CLINICAL HISTORY: Reason for exam: b/l lower ext daniel. dvt?. TECHNIQUE: Real-time duplex ultrasound scan of the bilateral lower extremity veins integrating B-mode two-dimensional vascular structure, Doppler spectral analysis, color flow Doppler imaging and compression. COMPARISON: None. FINDINGS: Right deep veins: Unremarkable. No DVT in the right common femoral, femoral, proximal deep femoral or popliteal veins. The veins demonstrate normal color flow, are normally compressible, with normal phasic flow and/or augmentation response. Right superficial veins: Unremarkable. No thrombus in the visualized right great saphenous vein. Left deep veins: Unremarkable. No DVT in the left common femoral, femoral, proximal deep femoral or popliteal veins. The veins demonstrate normal color flow, are normally compressible, with normal phasic flow and/or augmentation response. Left superficial veins: Unremarkable. No thrombus in the visualized left great saphenous vein. Soft tissues: Nonspecific edema involving the bilateral calf region. No popliteal cyst. IMPRESSION: No ultrasonographic evidence of deep venous thrombosis involving the bilateral lower extremities. Electronically signed by: Susy Caceres MD 02/28/23 01:52 AM
[2023-02-28] MEDS: HEPARIN SOD 5,000 UNIT/0.5 ML VIAL SQ SCH ×3 (02:18→21:18)
[2023-02-28] MEDS: NYSTATIN CR 15 GM TUBE EXT SCH ×3 (02:18→21:19)
[2023-02-28] MEDS: CIPROFLOXACIN / D5W 400 MG/200 ML BAG IV SCH ×2 (02:20→14:52)
[2023-02-28] MEDS: metroNIDAZOLE 500 MG/100 ML BAG IV SCH ×2 (02:20→10:51)
--- NOTE | 2023-02-28 03:27 | History & Physical Report ---
Date of Service February 27, 2023 Assessment & Plan (1) Bilateral edema of lower extremity: Plan: 73-year-old female with past med history significant for type 2 diabetes, hyperlipidemia, COPD, moderate persistent asthma, portal hypertension, paroxysmal atrial tachycardia, hypertension, history of esophageal varices, cirrhosis of liver, GERD, essential tremor, anemia due to chronic blood loss, presents with ongoing lower extremity edema and abdominal distention. Bilateral lower extreme edema Abdominal distention possible ascites History of liver cirrhosis Doppler negative for DVT Patient states her Lasix was changed to torsemide but still her edema was not improving Given dose of IV Lasix 40 mg 1 dose Continue home spironolactone Further diuretics per GI Liver cirrhosis Elevated ammonia Elevated bilirubin Dose of lactulose Follow repeat levels We will check abdominal ultrasound for ascites Diagnostic and therapeutic paracentesis per GI Empiric antibiotics for now History of COPD History of asthma Continue home inhalers Hypertension On amlodipine We will monitor the blood pressure History of esophageal varices Post banding Portal hypertension Seems nadolol was started by GI but not on home meds . On Protonix GI consulted. History of nonoccluding PVT Seems seen by heme-onc and not being anticoagulated History of left breast cancer S/p lumpectomy Currently on anastrozole Follows with heme-onc DVT prophylaxis Heparin subcu Disposition Medical floor Full code History of Present Illness Chief Complaint: Lower extremity edema and ascites Primary Care Provider: Mark Caal MD 73-year-old female with past med history significant for type 2 diabetes, hyperlipidemia, COPD, moderate persistent asthma, portal hypertension, paroxysmal atrial tachycardia, hypertension, history of esophageal varices, cirrhosis of liver, GERD, essential tremor, anemia due to chronic blood loss, presents with ongoing lower extremity edema and abdominal distention. Patient states was recently in the ER for lower extremity edema and she was advised to increase Lasix and follow with PCP. Patient states she saw PCP and the Lasix was changed to torsemide but her lower extremity edema was not getting better and also her abdomen getting distended so she came back to the ER. Denies any chest pain or shortness of breath. No cough. No fevers. No headache or back pain. On and off abdominal pain. No blood in stools or black stools. Micturating okay. Currently resting comfortably and hemodynamically stable. Past medical history as mentioned above. Past surgical history. Right total knee arthroplasty. Breast biopsy. Colonoscopy. EGD. Left knee arthroscopy. Partial mastectomy. Partial hysterectomy. Reduction of breast. Removal of bowel lesions. Removed of oviducts. Lumbar laminectomy. Cholecystectomy. Tonsillectomy. Repair of bowel bladder fistula. Repair of incisional hernia. Repair of nasal septum.Revision of knee joint replacement. Sacroiliac joint injection. Left tendon sheath incision. Ultrasound-guided breast biopsy left side. Social history. . No smoking. No alcohol. No drug use. Family history. She says allergies. Sister had gallbladder cancer. Paternal grandfather had prostate cancer. Allergies Allergy/AdvReac Type Severity Reaction Status Date / Time albuterol Allergy Severe HIVES, Verified 02/27/23 20:48 DIFFICULTY WALKING, SHAKINESS, STUTTERING azithromycin Allergy Severe SHORT OF Verified 02/27/23 20:48 BREATH, PALPITATIONS tramadol Allergy Severe SEE COMMENT Verified 02/27/23 20:48 ibuprofen Allergy Intermediate Hives Verified 02/27/23 20:48 cephalexin AdvReac Severe "HEART Verified 02/27/23 20:48 PALPATIONS" morphine AdvReac Unknown PT STATES Verified 02/27/23 20:48 "BUILT UP A TOLERANCE TO MED, DOESN'T WORK". OPOIDS Allergy Severe DECREASE Uncoded 02/27/23 20:48 RESPIRATIONS--RECEIVED NARCAN Home Medications Medication Instructions Recorded Confirmed Type calcium carbonate 600 mg-vitamin 1 cap PO BID 02/11/18 02/27/23 History D3 10 mcg (400 unit) capsule anastrozole 1 mg tablet 1 mg PO QAM 04/11/18 02/27/23 History latanoprost 0.005 % eye drops 1 drp OPB HS 04/11/18 02/27/23 History montelukast 10 mg tablet 10 mg PO QAM 04/11/18 02/27/23 History pantoprazole 40 mg tablet,delayed 40 mg PO DAILYBB 04/11/18 02/27/23 History release levalbuterol tartrate 45 1 puff inhalation Q4H PRN Wheezing 11/11/18 02/27/23 History mcg/actuation aerosol inhaler milk thistle seed extract 175 mg 175 mg PO QAM 01/21/19 02/27/23 History tablet psyllium husk 3.4 gram/5.4 gram 2 tsp PO TID PRN Constipation 01/21/19 02/27/23 History oral powder (Metamucil) docusate sodium 100 mg capsule 100 mg PO TID PRN Constipation 07/28/19 02/27/23 History (Stool Softener) acetaminophen 650 mg 650 mg PO Q8H PRN Pain 07/14/20 02/27/23 History tablet,extended release (Tylenol 8 Hour) blood sugar diagnostic (OneTouch #50 ea 07/15/20 Rx Verio test strips) lancets 30 gauge (OneTouch Delica #100 ea 07/15/20 Rx Lancets) cyclosporine 0.05 % eye drops in a 1 drp ophthalmic (eye) QAM 12/22/20 02/27/23 History dropperette (Restasis) cinnamon bark 500 mg capsule 1,000 mg PO BID 01/20/22 02/27/23 History (Cinnamon) fluticasone propionate 110 2 puff inhalation AMPM 01/20/22 02/27/23 History mcg/actuation HFA aerosol inhaler garlic 100 mg tablet 1,000 mg PO BID 01/20/22 02/27/23 History guaifenesin 100 mg/5 mL oral 200 mg (10 mL) PO Q6H PRN cough 01/22/22 02/27/23 Rx liquid (Cough Syrup) #473 mL amlodipine 10 mg tablet 10 mg PO DAILY 08/07/22 02/27/23 History spironolactone 50 mg tablet 50 mg PO QAM 08/07/22 02/27/23 History torsemide 20 mg tablet 40 mg PO DAILY 02/28/23 02/28/23 History Past Med/Surg History Medical History Abnormal chest x-ray Asthma Bronchitis CAD (coronary artery disease) Chronic obstructive pulmonary disease Cirrhosis Cirrhosis of liver not due to alcohol Diverticulitis Esophageal varices hx of banding Fibromyalgia Glaucoma bilt HTN (hypertension) Incarcerated hernia of abdominal cavity Malignant neoplasm of left breast, stage 1, estrogen receptor positive (09/26/17) "Status post bilateral breast reduction in 1998 Status post abnormal left breast mammogram Status post ultrasound core needle biopsy September 26, 2017 Infiltrating carcinoma, grade 2 Estrogen receptor positive, progesterone receptor positive, 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 Status post needle localization lumpectomy and sentinel lymph node biopsy October 16, 2017 Stage pT1c pN0 M0 Status post completion of radiation therapy January 01, 2018. She received 5130 cGy utilizing hypo-fractionation." On 11/19/17 11:17 Blossom Brandt wrote "Status post bilateral breast reduction in 1998 Status post abnormal left breast mammogram Status post ultrasound core needle biopsy September 26, 2017 Infiltrating carcinoma, grade 2 Estrogen receptor positive, progesterone receptor positive, 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 Status post needle localization lumpectomy and sentinel lymph node biopsy October 16, 2017 Stage pT1c pN0 M0 Status post completion of radiation therapy January 01, 2018. She received 5130 centigrade utilizing hypo-fractionation. Migraine Osteoarthritis Paroxysmal atrial tachycardia Rectal vaginal fistula Sinus arrhythmia Thyroid goiter just monitoring for now Surgical History H/O arthroscopy of right knee H/O bilateral breast reduction surgery H/O tooth extraction all teeth removed H/O: hysterectomy History of appendectomy History of bilateral cataract extraction History of bilateral salpingo-oophorectomy (BSO) History of cholecystectomy History of closure of ileostomy 1998---1 month after created History of colonoscopy History of colostomy reversal 1997--8 weeks after colectomy History of ear surgery right ear "doctor broke my ear drum to drain the fluid" History of esophagogastroduodenoscopy (EGD) History of ileostomy 1998 History of incisional hernia repair x8 History of lumpectomy of left breast with lymph node removal History of needle biopsy left breast---malignant History of partial colectomy 1997--diverticuli pocket ruptured @ [facility] History of repair of rectocele History of surgical removal of ganglion cyst right wrist History of tonsillectomy and adenoidectomy History of total right knee replacement x2 Status post correction of deviated nasal septum Status post left foot surgery planter fascitis Status post trigger finger release right thumb Family History Sister Family history of diabetes mellitus Grandfather (Paternal) Family history of diabetes mellitus Family hx of colon cancer Grandfather (Maternal) Family history of diabetes mellitus Family/Other Family history of diabetes mellitus 2 cousins Other No family history of adverse response to anesthesia Social History Smoking Status: Never smoker Second Hand Exposure: Yes ( smoked); Do You Dip or Chew Tobacco: No; Hx Alcohol Use: No Hx Substance Use: No Preferred Language: Libyan Communication Ability: Effective Supervisor [place] Required: No Beliefs That Will Affect Care: None marital status: Current Living Situation: Spouse current occupational status: retired How many Children do You have: 1 Other Information That Helps Us Care for You: No Feels Safe at Home: Yes Safety Concerns: Feels Safe At This Time Assistive Devices: Cane, Denture - Upper, Denture - Lower and Glasses Review of Systems Review of Systems: All systems reviewed & are unremarkable except as noted in HPI & below Physical Exam Physical Exam: General- Not in distress Head- atraumatic Eyes- PERRL. ENT- oropharynx clear Neck- supple, no JVD. Lungs- clear to auscultation, no wheezing or crackles. Heart- regular rhythm; no murmur, no gallop. Abdomen- normal bowel sounds, soft, nontender, mild distension. Extremities-Lower extremity edema present, no erythema seen Neuro- alert, oriented x 3; PERRL, no facial palsy; no dysarthria; obeys commands, moves extremities. Results & Data Results & Data Vital Signs (Past 12 Hours) Vital Signs Temp Pulse Resp BP Pulse Ox O2 Del Method 02/27/23 19:53 98 H 02/27/23 16:18 36.7 C 110 H 18 143/77 H 91 Room Air Diagnostic Findings Laboratory Results WBC 5.53 K/ul (4.8-10.8) 02/27/23 16:40 RBC 3.89 M/uL (4.20-5.40) L 02/27/23 16:40 Hgb 13.1 g/dl (12.0-16.0) 02/27/23 16:40 Hct 38.3 % (37.0-47.0) 02/27/23 16:40 MCV 98.5 fL (80.0-100.0) 02/27/23 16:40 MCH 33.7 pg (25.0-34.0) 02/27/23 16:40 MCHC 34.2 g/dL (32.0-36.0) 02/27/23 16:40 RDW Std Deviation 57.2 fL (36.4-46.3) H 02/27/23 16:40 RDW Coeff of Monster 15.9 % (11.5-14.5) H 02/27/23 16:40 Plt Count 138 K/uL (130-400) 02/27/23 16:40 MPV 9.7 fL (9.4-12.4) 02/27/23 16:40 Immature Gran % (Auto) 0.4 % 02/27/23 16:40 Neut % (Auto) 61.1 % 02/27/23 16:40 Lymph % (Auto) 15.2 % 02/27/23 16:40 [place] % (Auto) 20.4 % 02/27/23 16:40 Eos % (Auto) 2.5 % 02/27/23 16:40 Baso % (Auto) 0.4 % 02/27/23 16:40 Neut # (Auto) 3.38 K/uL (1.40-6.50) 02/27/23 16:40 Lymph # (Auto) 0.84 K/uL (1.20-3.40) L 02/27/23 16:40 [place] # (Auto) 1.13 K/uL (0.11-0.59) H 02/27/23 16:40 Eos # (Auto) 0.14 K/uL (0.00-0.50) 02/27/23 16:40 Baso # (Auto) 0.02 K/uL (0.00-0.20) 02/27/23 16:40 Immature Gran # (Auto) 0.02 K/uL (0.01-0.20) 02/27/23 16:40 PT 12.8 Seconds (9.0-12.0) H 02/27/23 16:42 INR 1.2 (0.9-1.1) H 02/27/23 16:42 Sodium 134 mmol/L (136-145) L 02/27/23 16:40 Potassium 3.3 mmol/L (3.5-5.1) L 02/27/23 16:40 Chloride 98 mmol/L (98-107) 02/27/23 16:40 Carbon Dioxide 28 mmol/L (21-32) 02/27/23 16:40 Anion Gap 8 (3-11) 02/27/23 16:40 BUN 11 mg/dl (6-23) 02/27/23 16:40 Creatinine 0.64 mg/dl (0.6-1.2) 02/27/23 16:40 Est Cr Clr Drug Dosing 76.1 ml/min 02/27/23 16:40 Est GFR ( Amer) 104.1 ml/min 02/27/23 16:40 Est GFR (Non-Af Amer) 89.8 ml/min 02/27/23 16:40 BUN/Creatinine Ratio 17.2 (10-20) 02/27/23 16:40 Glucose 145 mg/dl (70-99(Fasting)) H 02/27/23 16:40 Calcium 8.2 mg/dl (8.6-10.3) L 02/27/23 16:40 Magnesium 1.5 mg/dl (1.7-2.4) L 02/27/23 16:40 Total Bilirubin 2.3 mg/dl (0.2-1.0) H 02/27/23 16:40 AST 52 U/L (13-39) H 02/27/23 16:40 ALT 23 U/L (7-52) 02/27/23 16:40 Alkaline Phosphatase 99 U/L (34-104) 02/27/23 16:40 Ammonia 76.0 umol/L (18-72) H 02/27/23 16:40 Total Protein 6.8 gm/dl (6.0-8.3) 02/27/23 16:40 Albumin 3.2 gm/dl (3.4-5.0) L 02/27/23 16:40 Globulin 3.6 gm/dl (2.5-4.0) 02/27/23 16:40 Albumin/Globulin Ratio 0.9 (0.9-2) 02/27/23 16:40 Impressions Venous Doppler Study 02/27/23 23:14 Exam(s): US VENOUS BILATERAL LOWER EXTREMITIES EXAM: US Duplex Bilateral Lower Extremities Veins CLINICAL HISTORY: Reason for exam: b/l lower ext daniel. dvt?. TECHNIQUE: Real-time duplex ultrasound scan of the bilateral lower extremity veins integrating B-mode two-dimensional vascular structure, Doppler spectral analysis, color flow Doppler imaging and compression. COMPARISON: None. FINDINGS: Right deep veins: Unremarkable. No DVT in the right common femoral, femoral, proximal deep femoral or popliteal veins. The veins demonstrate normal color flow, are normally compressible, with normal phasic flow and/or augmentation response. Right superficial veins: Unremarkable. No thrombus in the visualized right great saphenous vein. Left deep veins: Unremarkable. No DVT in the left common femoral, femoral, proximal deep femoral or popliteal veins. The veins demonstrate normal color flow, are normally compressible, with normal phasic flow and/or augmentation response. Left superficial veins: Unremarkable. No thrombus in the visualized left great saphenous vein. Soft tissues: Nonspecific edema involving the bilateral calf region. No popliteal cyst. IMPRESSION: No ultrasonographic evidence of deep venous thrombosis involving the bilateral lower extremities. Electronically signed by: Susy Caceres MD 02/28/23 01:52 AM ECG Additional Comments: ECG. Sinus tachycardia rate of 105. No significant change was found. Code Status & VTE Plan VTE Prophylaxis Plan VTE Prophylaxis will be ordered: Yes
[2023-02-28] MEDS ORDERED: diphenhydrAMINE Capsule 25 MG CAP PO ONE (04:02)
[2023-02-28] MEDS: MAGNESIUM SULFATE / D5W 1 GM/100 ML BAG IV SCH ×2 (05:05→07:42)
[2023-02-28 05:55] LABS: Hematocrit (blood only) 32.7 % (37.0-47.0); Hemoglobin 11.3 g/dl (12.0-16.0); Mean Corpuscular Hemoglobin 33.4 pg (25.0-34.0); Mean Corpuscular Hgb Conc 34.6 g/dL (32.0-36.0); Mean Corpuscular Volume 96.7 fL (80.0-100.0); RDW Coefficient of Variation 15.7 % (11.5-14.5); RDW Standard Deviation 55.6 fL (36.4-46.3); Red Blood Count 3.38 M/uL (4.20-5.40)
[2023-02-28 05:56] LABS: Basophils # (auto) 0.03 K/uL (0.00-0.20); Basophils % (auto) 0.7 %; Eosinophils # (auto) 0.14 K/uL (0.00-0.50); Eosinophils % (auto) 3.4 %; Immature Granulocytes # (auto) 0.01 K/uL (0.01-0.20); Immature Granulocytes % (auto) 0.2 %; Lymphocytes # (auto) 0.68 K/uL (1.20-3.40); Lymphocytes % (auto) 16.6 %; Mean Platelet Volume 9.8 fL (9.4-12.4); Monocytes # (auto) 0.98 K/uL (0.11-0.59); Monocytes % (auto) 23.9 %; Neutrophils # (auto) 2.26 K/uL (1.40-6.50); Neutrophils % (auto) 55.2 %; Platelet Count 87 K/uL (130-400)
[2023-02-28] MEDS ORDERED: LACTULOSE SYRUP 30 GM/45 ML UDP PO ONE (06:00)
[2023-02-28 06:12] LABS: Albumin Level 2.7 gm/dl (3.4-5.0); BUN Creatinine Ratio 14.7 (10-20); Bilirubin Direct 0.6 mg/dl (0-0.2); Bilirubin,Total 1.9 mg/dl (0.2-1.0); Calcium 7.7 mg/dl (8.6-10.3); Creatinine Clr Calc Pharmacy 71.6 ml/min; Magnesium 1.7 mg/dl (1.7-2.4); Phosphorus 2.1 mg/dl (2.5-4.9); Potassium 3.4 mmol/L (3.5-5.1); Total Protein 5.6 gm/dl (6.0-8.3)
[2023-02-28] MEDS: PANTOprazole 40 MG TAB PO SCH (06:16)
--- NOTE | 2023-02-28 07:33 | Ultrasound Report ---
US abdomen ltd ascites HISTORY: 73 years-old Female ascites? liver cirrhosis chronic liver disease with ascites COMPARISON: CT 02/21/2023 TECHNIQUE: Limited images of the abdomen were obtained FINDINGS: Cirrhotic liver redemonstrated. Small amount of ascites noted within the right upper and lower quadra nts of the abdomen. IMPRESSION: Cirrhosis with small volume of ascites. ACT 112: Negative or not required by law. The above report was generated using voice recognition software. It may contain grammatical, syntax o r spelling errors. Electronically signed by: Beck Gray M.D. 02/28/2023 7:31 AM
[2023-02-28] MEDS ORDERED: POTASSIUM CHLORIDE CRTAB 20 MEQ TABCR PO ONE (08:19)
[2023-02-28] MEDS ORDERED: SODIUM PHOSPHATE 3 MMOL/1 ML INFUSION IV ONE (08:20)
[2023-02-28] MEDS ORDERED: PROMETHAZINE HCL 6.25 MG in SODIUM CHLORIDE 0.9% 50 ML IV PRN (08:20)
[2023-02-28] MEDS ORDERED: SODIUM PHOSPHATE 12 MMOL in SODIUM CHLORIDE 0.9% 250 ML IV ONE (08:45)
[2023-02-28] MEDS ORDERED: SPIRONOLACTONE 25 MG TAB PO SCH (09:00)
[2023-02-28] MEDS: amLODIPine BESYLATE 5 MG TAB PO SCH (09:40)
[2023-02-28] MEDS: CALCIUM 600MG + VIT D 400 IU TAB PO SCH ×2 (09:41→21:17)
[2023-02-28] MEDS: MAGNESIUM CHLORIDE W/CALCIUM 64MG DELAYED REL TAB PO SCH ×2 (09:41→21:18)
[2023-02-28] MEDS: ANASTROZOLE 1 MG TAB PO SCH (09:41)
[2023-02-28] MEDS: MONTELUKAST SODIUM 10 MG TABLET PO SCH (09:41)
[2023-02-28] MEDS: FLUTICASONE FUROATE 200MCG 14 PUFFS/INHALER INH SCH (09:42)
[2023-02-28] MEDS ORDERED: FUROSEMIDE 40 MG/4 ML VIAL IV SCH (11:00)
--- NOTE | 2023-02-28 12:13 | Electrocardiogram Report ---
Test Reason : Blood Pressure : / mmHG Vent. Rate : 105 BPM Atrial Rate : 105 BPM P-R Int : 112 ms QRS Dur : 072 ms QT Int : 326 ms P-R-T Axes : 032 -02 -07 degrees QTc Int : 430 ms Sinus tachycardia Cannot rule out Anterior infarct (cited on or before 21-FEB-2023) Abnormal ECG When compared with ECG of 21-FEB-2023 18:07, No significant change was found Confirmed by Rafael Nathan ([id number]) on 02/28/2023 12:13:15 PM Referred By: Daniel Elizabeth Confirmed By:Rafael Nathan
[2023-02-28 14:18] LABS: Cdiff Toxin B Gene (2yr or >) Positive Cdiff Gene (Neg)
[2023-02-28 15:21] LABS: Cdiff Antigen Positive
[2023-02-28 15:33] LABS: Cdiff Toxin A+B Positive Cdiff Toxin (Negative)
--- NOTE | 2023-02-28 15:48 | Hospitalist Progress Note ---
Date of Service February 28, 2023 Assessment & Plan (1) Bilateral edema of lower extremity: Plan: This is a 73-year-old female with past med history significant for type 2 diabetes, hyperlipidemia, COPD, moderate persistent asthma, portal hypertension, paroxysmal atrial tachycardia, hypertension, history of esophageal varices, cirrhosis of liver, GERD, essential tremor, anemia due to chronic blood loss, presents with ongoing lower extremity edema and abdominal distention. Bilateral lower extreme edema Abdominal distention History of liver cirrhosis Doppler negative for DVT Abdominal ultrasound showing cirrhosis with small volume of ascites. Patient states her Lasix (40mg daily) was changed to torsemide 40mg daily on 02/25 but still her edema was not improving Given dose of IV Lasix 40 mg at 0200 and again around 10 AM today - holding additional doses for now since anticipating volume loss with c diff diarrhea. Reassess in AM Continue home spironolactone GI consulted Consider diagnostic and therapeutic paracentesis per GI Empiric cipro/flagyl started on admission for possible SBP but feel abd pain likely 2/2 c diff - will dc cipro/flagyl and continue PO Vanc C diff diarrhea Developed liquid stool overnight, had another episode today. C diff toxin positive Contact isolation precautions Started Po Vanc Monitor lytes, volume status History of COPD History of asthma Continue home inhalers Hypertension Chronic; stable. Continue amlodipine History of esophageal varices Post banding Portal hypertension Nadolol was started by GI over the summer, then transitioned to carvedilol but patient discontinued in December Due for VB surveillance with EGD next year On Protonix GI consulted History of nonoccluding PVT Following with heme onc. Per their note, no need for anticoagulation of cirrhotic patients with asymptomatic PVT in the absence of underlying cancer Due for follow up with Dr. Harrell later this month History of left breast cancer S/p lumpectomy Currently on anastrozole Follows with heme-onc DVT prophylaxis Heparin subcu Disposition Medical floor Full code Admission and Anticipated Discharge Date Admission Date: February 27, 2023 Supervising Physician Co-Signing Physician Notes Patient is seen and examined at bedside. States having abdominal pain associate with nausea, vomiting. Also reports bilateral lower extremity edema. Offers no other complaints. On exam patient is moderately built and nourished, no apparent distress, normocephalic atraumatic, EOMI, normal breath sounds, clear to auscultation, S1-S2, no murmur,2+ bilateral lower extremity edema, abdomen soft, mildly distended, tender, alert, awake, oriented, grossly no focal deficits. C. difficile colitis. Agree with starting on p.o. vancomycin. Monitor and replete electrolytes as needed. Volume overload likely due to decompensated cirrhosis. Echo reviewed. Given ongoing C. difficile diarrhea, will assess volume status on daily basis and give diuretics as needed. GI on board. I personally reviewed the record. Patient is interviewed and examined at bedside. Patient's care is coordinated with Shaneka Cole PA-C. Please refer to the documentation above for details of patient's presentation and for discussion of other issues. Subjective Patient seen and examined in 318 in follow-up for volume overload in setting of cirrhosis. Endorses a brown liquid bowel movement overnight but recurred again this morning after administration of antibiotic. Also endorsing some nausea and one episode of vomiting that improved with Phenergan. Conversational dyspnea and increased swelling noted in abdomen and bilateral lower extremities. Abdominal discomfort secondary to fluid but denies any ari pain. Patient denies any fever, chills, lightheadedness, chest pain, dysuria or constipation. Review of Systems Review of Systems: At least ten systems reviewed and negative except as noted in the HPI. Physical Exam Physical Exam: Gen: WD/WN, NAD, resting in bed, A&Ox3 HEENT: Normocephalic, atraumatic, conjunctivae moist, sclerae anicteric, mucous membranes moist Lung: Clear to Auscultation bilaterally, no wheezes/rales/rhonchi Heart: Regular rate, regular rhythm, no murmurs, rubs, or gallops Abdomen: Soft, abdominal distention 2/2 fluid, mild TTP 2/2 fullness+BS x 4 Extremities: 1-2+ BLE and pedal edema Skin: Warm, no rash Results & Data Results & Data Vital Signs (Past 12 Hours) Vital Signs Temp Pulse Resp BP Pulse Ox O2 Del Method 02/28/23 14:06 36.5 C 95 H 16 108/68 96 Room Air 02/28/23 09:10 Room Air 02/28/23 07:25 36.5 C 101 H 16 137/73 94 Room Air Laboratory Results Short CBC 02/27/23 02/28/23 Range/Units 16:40 05:41 WBC 5.53 4.10 L (4.8-10.8) K/ul Hgb 13.1 11.3 L (12.0-16.0) g/dl Hct 38.3 32.7 L (37.0-47.0) % Plt Count 138 87 L (130-400) K/uL BMP 02/27/23 02/28/23 16:40 05:41 Sodium 134 L 135 L Potassium 3.3 L 3.4 L Chloride 98 101 Carbon Dioxide 28 28 BUN 11 10 Creatinine 0.64 0.68 Glucose 145 H 127 H Calcium 8.2 L 7.7 L Liver Function 02/27/23 02/28/23 Range/Units 16:40 05:41 Total Bilirubin 2.3 H 1.9 H (0.2-1.0) mg/dl Direct Bilirubin 0.6 H (0-0.2) mg/dl AST 52 H 41 H (13-39) U/L ALT 23 19 (7-52) U/L Alkaline Phosphatase 99 75 (34-104) U/L Albumin 3.2 L 2.7 L (3.4-5.0) gm/dl Diagnostic Findings Abdomen Ultrasound 02/27/23 23:14 US abdomen ltd ascites HISTORY: 73 years-old Female ascites? liver cirrhosis chronic liver disease with ascites COMPARISON: CT 02/21/2023 TECHNIQUE: Limited images of the abdomen were obtained FINDINGS: Cirrhotic liver redemonstrated. Small amount of ascites noted within the right upper and lower quadrants of the abdomen. IMPRESSION: Cirrhosis with small volume of ascites. ACT 112: Negative or not required by law. The above report was generated using voice recognition software. It may contain grammatical, syntax or spelling errors. Electronically signed by: Beck Gray M.D. 02/28/2023 7:31 AM Venous Doppler Study 02/27/23 23:14 Exam(s): US VENOUS BILATERAL LOWER EXTREMITIES EXAM: US Duplex Bilateral Lower Extremities Veins CLINICAL HISTORY: Reason for exam: b/l lower ext daniel. dvt?. TECHNIQUE: Real-time duplex ultrasound scan of the bilateral lower extremity veins integrating B-mode two-dimensional vascular structure, Doppler spectral analysis, color flow Doppler imaging and compression. COMPARISON: None. FINDINGS: Right deep veins: Unremarkable. No DVT in the right common femoral, femoral, proximal deep femoral or popliteal veins. The veins demonstrate normal color flow, are normally compressible, with normal phasic flow and/or augmentation response. Right superficial veins: Unremarkable. No thrombus in the visualized right great saphenous vein. Left deep veins: Unremarkable. No DVT in the left common femoral, femoral, proximal deep femoral or popliteal veins. The veins demonstrate normal color flow, are normally compressible, with normal phasic flow and/or augmentation response. Left superficial veins: Unremarkable. No thrombus in the visualized left great saphenous vein. Soft tissues: Nonspecific edema involving the bilateral calf region. No popliteal cyst. IMPRESSION: No ultrasonographic evidence of deep venous thrombosis involving the bilateral lower extremities. Electronically signed by: Susy Caceres MD 02/28/23 01:52 AM
--- NOTE | 2023-02-28 15:55 | Gastrointestinal Consultation ---
Date of Consultation February 28, 2023 Assessment & Plan (1) Bilateral edema of lower extremity: (2) Cirrhosis: (3) Clostridium difficile diarrhea: Plan Continue Vanco 125mg QID Once diarrhea improved then restart diuretics. Suspect pt is getting sodium in her diet (eats out often - but doesn't salt her foods). Discussed that she may need to prepare all her own foods to avoid sodium. Reminded no chips, crackers etc. Avoid antibiotics. Continue OP f/u w Dr. Elizabeth for cirrhosis management. Supervising Physician Co-Signing Physician Notes Attg add: Pt with cirrhosis diarrhea from C diff, volume oveload with mod peripheral edema. On exam, she has 2 + pitting edema to knees. Her weight is stable. Labs show creat stable, Na 135, BUN 10, albumin 2.7. Agree with C diff therapy. Low Na diet. Consider hold CCB for pedal edema. Increase aldactone to 100 mg, cont toresmide at 10 mg. Please call with further questions. History of Present Illness Reason for Consultation: liver cirhosis, edema Requesting Physician: Dr Mcbride Attending Physician: Merlin Hawkins MD History of Present Illness Ms. Karsten Knapp is a 73 yr old female pt of Dr. Caal w a hx of CAD, asthma, COPD, breast CA, cirrhosis w EV, ascites and peripheral edema who was directed to present for admission by Dr. Lenz who manages her cirrhosis in the OP GI clinic. On arrival, US w small volume ascites, no lower ext DVTs, Na 135. At home, she is maintained on spironolactone 50mg and torsemide 40mg daily. Here, she received Furosemide 40mg IV BID and spironolactone. Today, she passed 4 large liquid BMs andhas diffuse abdominal discomfort/bloating. This afternoon, stool studies came back positive for C-diff, lactulose (to be clear, she is not on lactulose at home) and diuretics were held and she was started on Vanco po. Allergies Allergy/AdvReac Type Severity Reaction Status Date / Time albuterol Allergy Severe HIVES, Verified 02/27/23 20:48 DIFFICULTY WALKING, SHAKINESS, STUTTERING azithromycin Allergy Severe SHORT OF Verified 02/27/23 20:48 BREATH, PALPITATIONS tramadol Allergy Severe SEE COMMENT Verified 02/27/23 20:48 ibuprofen Allergy Intermediate Hives Verified 02/27/23 20:48 cephalexin AdvReac Severe "HEART Verified 02/27/23 20:48 PALPATIONS" morphine AdvReac Unknown PT STATES Verified 02/27/23 20:48 "BUILT UP A TOLERANCE TO MED, DOESN'T WORK". OPOIDS Allergy Severe DECREASE Uncoded 02/27/23 20:48 RESPIRATIONS--RECEIVED NARCAN Home Medications Medication Instructions Recorded Confirmed Type calcium carbonate 600 mg-vitamin 1 cap PO BID 02/11/18 02/27/23 History D3 10 mcg (400 unit) capsule anastrozole 1 mg tablet 1 mg PO QAM 04/11/18 02/27/23 History latanoprost 0.005 % eye drops 1 drp OPB HS 04/11/18 02/27/23 History montelukast 10 mg tablet 10 mg PO QAM 04/11/18 02/27/23 History pantoprazole 40 mg tablet,delayed 40 mg PO DAILYBB 04/11/18 02/27/23 History release levalbuterol tartrate 45 1 puff inhalation Q4H PRN Wheezing 11/11/18 02/27/23 History mcg/actuation aerosol inhaler milk thistle seed extract 175 mg 175 mg PO QAM 01/21/19 02/27/23 History tablet psyllium husk 3.4 gram/5.4 gram 2 tsp PO TID PRN Constipation 01/21/19 02/27/23 History oral powder (Metamucil) docusate sodium 100 mg capsule 100 mg PO TID PRN Constipation 07/28/19 02/27/23 History (Stool Softener) acetaminophen 650 mg 650 mg PO Q8H PRN Pain 07/14/20 02/27/23 History tablet,extended release (Tylenol 8 Hour) blood sugar diagnostic (OneTouch #50 ea 07/15/20 Rx Verio test strips) lancets 30 gauge (OneTouch Delica #100 ea 07/15/20 Rx Lancets) cyclosporine 0.05 % eye drops in a 1 drp ophthalmic (eye) QAM 12/22/20 02/27/23 History dropperette (Restasis) cinnamon bark 500 mg capsule 1,000 mg PO BID 01/20/22 02/27/23 History (Cinnamon) fluticasone propionate 110 2 puff inhalation AMPM 01/20/22 02/27/23 History mcg/actuation HFA aerosol inhaler garlic 100 mg tablet 1,000 mg PO BID 01/20/22 02/27/23 History guaifenesin 100 mg/5 mL oral 200 mg (10 mL) PO Q6H PRN cough 01/22/22 02/27/23 Rx liquid (Cough Syrup) #473 mL amlodipine 10 mg tablet 10 mg PO DAILY 08/07/22 02/27/23 History spironolactone 50 mg tablet 50 mg PO QAM 08/07/22 02/27/23 History torsemide 20 mg tablet 40 mg PO DAILY 02/28/23 02/28/23 History Patient History Medical History Abnormal chest x-ray Asthma Bronchitis CAD (coronary artery disease) Chronic obstructive pulmonary disease Cirrhosis Cirrhosis of liver not due to alcohol Diverticulitis Esophageal varices hx of banding Fibromyalgia Glaucoma bilt HTN (hypertension) Incarcerated hernia of abdominal cavity Malignant neoplasm of left breast, stage 1, estrogen receptor positive (09/26/17) "Status post bilateral breast reduction in 1998 Status post abnormal left breast mammogram Status post ultrasound core needle biopsy September 26, 2017 Infiltrating carcinoma, grade 2 Estrogen receptor positive, progesterone receptor positive, 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 Status post needle localization lumpectomy and sentinel lymph node biopsy October 16, 2017 Stage pT1c pN0 M0 Status post completion of radiation therapy January 01, 2018. She received 5130 cGy utilizing hypo-fractionation." On 11/19/17 11:17 Blossom Brandt wrote "Status post bilateral breast reduction in 1998 Status post abnormal left breast mammogram Status post ultrasound core needle biopsy September 26, 2017 Infiltrating carcinoma, grade 2 Estrogen receptor positive, progesterone receptor positive, 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 Status post needle localization lumpectomy and sentinel lymph node biopsy October 16, 2017 Stage pT1c pN0 M0 Status post completion of radiation therapy January 01, 2018. She received 5130 centigrade utilizing hypo-fractionation. Migraine Osteoarthritis Paroxysmal atrial tachycardia Rectal vaginal fistula Sinus arrhythmia Thyroid goiter just monitoring for now Surgical History H/O arthroscopy of right knee H/O bilateral breast reduction surgery H/O tooth extraction all teeth removed H/O: hysterectomy History of appendectomy History of bilateral cataract extraction History of bilateral salpingo-oophorectomy (BSO) History of cholecystectomy History of closure of ileostomy 1998---1 month after created History of colonoscopy History of colostomy reversal 1997--8 weeks after colectomy History of ear surgery right ear "doctor broke my ear drum to drain the fluid" History of esophagogastroduodenoscopy (EGD) History of ileostomy 1999 History of incisional hernia repair x8 History of lumpectomy of left breast with lymph node removal History of needle biopsy left breast---malignant History of partial colectomy 1997--diverticuli pocket ruptured @ [facility] History of repair of rectocele History of surgical removal of ganglion cyst right wrist History of tonsillectomy and adenoidectomy History of total right knee replacement x2 Status post correction of deviated nasal septum Status post left foot surgery planter fascitis Status post trigger finger release right thumb Family History Sister Family history of diabetes mellitus Grandfather (Paternal) Family history of diabetes mellitus Family hx of colon cancer Grandfather (Maternal) Family history of diabetes mellitus Family/Other Family history of diabetes mellitus 2 cousins Other No family history of adverse response to anesthesia Social History Smoking Status: Never smoker Second Hand Exposure: Yes ( smoked); Do You Dip or Chew Tobacco: No; Hx Alcohol Use: No Hx Substance Use: No Preferred Language: Persian Communication Ability: Effective Shooter'S Helper Required: No Beliefs That Will Affect Care: None marital status: Current Living Situation: Spouse current occupational status: retired How many Children do You have: 1 Other Information That Helps Us Care for You: No Feels Safe at Home: Yes Safety Concerns: Feels Safe At This Time Assistive Devices: Cane, Denture - Upper, Denture - Lower and Glasses Review of Systems Review of Systems: ROS: Gen: + some weakness, NO fevers, no weight loss Eyes: No eye redness, or pain, no recent vision changes Resp: No SOB, no cough Cardio: No palpitations/irregular beats, no chest pain GI: Has abdominal fullness/bloating : Denies pain on urination Skin: No jaundice, itching or new rashes Physical Exam Constitutional: WD/WN, vitals as above + ill appearing (chronically) Eyes: PERRL, conjunctivae normal, anicteric sclerae ENMT: external ear and nose normal, oropharynx normal Neck: trachea midline, no thyromegaly Respiratory: normal respiratory effort, lungs clear to auscultation Cardiovascular: RRR, no murmurs; 2+ lower leg edema Gastrointestinal (Abdomen): mild distention, hyperactive BS, minimal ascites Skin: no rashes, warm and dry Neurologic: PERRL, EOMI, accommodation nl, no face palsy, no dysarthria Psychiatric: A+Ox3, euthymic affect Lymphatic: no cervical or axillary lymphadenopathy Results & Data Vital Signs (Past 12 Hours) Vital Signs Temp Pulse Resp BP Pulse Ox O2 Del Method 02/28/23 14:06 36.5 C 95 H 16 108/68 96 Room Air 02/28/23 09:10 Room Air 02/28/23 07:25 36.5 C 101 H 16 137/73 94 Room Air Laboratory Results WBC 4, Hb 11.3, Hct 32.7, Plts 87k Na 135, K 3.4, Cl 101, CO2 28, BUN10, Cr 0.6, glucose 127. Diagnostic Findings US: IMPRESSION: Cirrhosis with small volume of ascites.
[2023-02-28] MEDS ORDERED: ONDANSETRON INJ 2 MG/ML 2 ML VIAL IV PRN (15:58)
[2023-02-28] MEDS ORDERED: FIDAXOMICIN 200 MG TAB PO SCH (16:00)
[2023-02-28 16:41] LABS: Adenovirus F 40/41 PCR Not Detected (NotDetected); Astrovirus PCR Not Detected (NotDetected); Campylobacter PCR Not Detected (NotDetected); Cryptosporidium PCR Not Detected (NotDetected); Cyclospora cayetanensis PCR Not Detected (NotDetected); Entamoeba histolytica PCR Not Detected (NotDetected); Enteroaggregative E.coli(EAEC) Not Detected (NotDetected); Enteropathogenic E.coli (EPEC) Not Detected (NotDetected); Enterotoxigenic E.coli (ETEC) Not Detected (NotDetected); Giardia lamblia PCR Not Detected (NotDetected); Norovirus GI/GII PCR Not Detected (NotDetected); Plesiomonas shigelloides PCR Not Detected (NotDetected); Rotavirus A PCR Not Detected (NotDetected); Salmonella PCR Not Detected (NotDetected); Sapovirus PCR Not Detected (NotDetected); Shiga-like Toxin E.coli (STEC) Not Detected (NotDetected); Shigella/Enteroinvasive E.coli Not Detected (NotDetected); Vibrio cholerae PCR Not Detected (NotDetected); Vibrio species PCR Not Detected (NotDetected); Yersinia enterocolitica PCR Not Detected (NotDetected)
[2023-02-28] MEDS: CHERRY SYRUP 5 ML UDP PO SCH ×2 (18:20→18:21)
[2023-02-28] MEDS: VANCOMYCIN HCL 125 MG/2.5ML SOLN PO SCH ×2 (18:21)
[2023-02-28] MEDS: LATANOPROST 0.005% OP SOLN 2.5 ML BTL OPB SCH (22:10)
[2023-03-01] MEDS: VANCOMYCIN HCL 125 MG/2.5ML SOLN PO SCH ×4 (00:30→17:32)
[2023-03-01] MEDS: CHERRY SYRUP 5 ML UDP PO SCH ×4 (00:30→17:32)
[2023-03-01] MEDS: PANTOprazole 40 MG TAB PO SCH (06:08)
[2023-03-01] MEDS: ANASTROZOLE 1 MG TAB PO SCH (08:55)
[2023-03-01] MEDS: MAGNESIUM CHLORIDE W/CALCIUM 64MG DELAYED REL TAB PO SCH ×2 (08:56→19:49)
[2023-03-01] MEDS: CALCIUM 600MG + VIT D 400 IU TAB PO SCH ×2 (08:56→19:48)
[2023-03-01] MEDS: FLUTICASONE FUROATE 200MCG 14 PUFFS/INHALER INH SCH (08:56)
[2023-03-01] MEDS: amLODIPine BESYLATE 5 MG TAB PO SCH (08:56)
[2023-03-01] MEDS: MONTELUKAST SODIUM 10 MG TABLET PO SCH (08:56)
[2023-03-01] MEDS: HEPARIN SOD 5,000 UNIT/0.5 ML VIAL SQ SCH ×2 (08:57→19:50)
[2023-03-01] MEDS: NYSTATIN CR 15 GM TUBE EXT SCH ×2 (08:57→19:49)
[2023-03-01 09:03] LABS: Hematocrit (blood only) 34.9 % (37.0-47.0); Hemoglobin 11.8 g/dl (12.0-16.0); Mean Corpuscular Hgb Conc 33.8 g/dL (32.0-36.0); Mean Corpuscular Volume 97.5 fL (80.0-100.0); Mean Platelet Volume 10.1 fL (9.4-12.4); Platelet Count 102 K/uL (130-400); RDW Coefficient of Variation 15.4 % (11.5-14.5); RDW Standard Deviation 55.2 fL (36.4-46.3); Red Blood Count 3.58 M/uL (4.20-5.40); White Blood Count 5.45 K/ul (4.8-10.8)
[2023-03-01 09:18] LABS: BUN Creatinine Ratio 14.7 (10-20); Creatinine Clr Calc Pharmacy 71.6 ml/min; Magnesium 2.1 mg/dl (1.7-2.4); Phosphorus 2.1 mg/dl (2.5-4.9); Potassium 3.9 mmol/L (3.5-5.1)
[2023-03-01 09:23] LABS: INR 1.2 (0.9-1.1)
[2023-03-01] MEDS: TORSEMIDE 10 MG TAB PO SCH (09:49)
[2023-03-01] MEDS: SPIRONOLACTONE 100 MG TAB PO SCH (09:49)
[2023-03-01] MEDS ORDERED: OPTIRAY 320 100ml IV ONE (11:45)
--- NOTE | 2023-03-01 12:38 | CT Scan Report ---
CT SCAN OF THE ABDOMEN AND PELVIS WITH IV CONTRAST CLINICAL HISTORY: C. Difficile colitis. Worsening abdominal pain. COMPARISON STUDY: Abdominal CT dated 02/21/2023 an 08/07/2022. TECHNIQUE: Following the IV administration of 92 cc of Optiray 320, CT scan of the abdomen and pelvi s is performed from the lung bases to the proximal femora. Images are reviewed in the axial, sagittal , and coronal planes. IV contrast was administered without complication. A dose lowering technique wa s utilized adhering to the principles of ALARA. CT DOSE: 1235.55 mGy.cm FINDINGS: Lung bases: The heart is normal in size and without pericardial effusion. There is elevation of the r ight hemidiaphragm with associated right basilar scarring/atelectasis. No airspace consolidation or p leural effusion is identified. Postoperative change is suggested in the left breast. There is a tiny hiatal hernia. Liver: The contrast-enhanced liver is cirrhotic in morphology and heterogeneous in attenuation. There is nodularity of the surface contour as well as hypertrophy of the left lobe and caudate. There is n o intrahepatic biliary ductal dilatation. The hepatic veins and portal veins are patent. Nonocclusive thrombus is identified at the portosplenic confluence and within branches of the mesenteric veins. T his is similar to the 08/07/2022 examination and best seen on axial images #137 and #162. Gallbladder: Surgically absent noting clips in the gallbladder fossa. Spleen: The spleen is mildly enlarged measuring 13.5 cm in length. Pancreas: Atrophic and grossly unremarkable. Adrenal glands: Unremarkable. Kidneys: The contrast enhanced kidneys are normal in size and without hydronephrosis. The kidneys enh ance symmetrically. Abdominal vasculature: The abdominal aorta is normal in course and caliber noting moderate to advance d atherosclerotic calcification. Bowel: The gastric mucosa appears thickened and hyperemic. Hyperdense material within the stomach as seen on axial images #104 and #145. There is postsurgical change from rectosigmoid resection with col ocolonic stenosis. There has also been a right-sided colonic resection. No bowel obstruction is seen. There is diverticulosis of the remaining colon without CT evidence of acute diverticulitis. The appe ndix is not identified and reported surgically absent. Ventral hernias containing nonobstructed segm ents of small bowel. The largest is seen on image #337. A duodenal diverticulum is incidentally noted . No significant colonic wall thickening or edema is identified. There is no evidence of megacolon. Peritoneum: There is a small to moderate volume of abdominopelvic ascites. No intraperitoneal free ai r is seen. Lymphadenopathy: None. Pelvic viscera: The bladder is normal as visualized. The uterus is surgically absent. No adnexal lesi on is seen. Skeletal structures: The skeletal structures are osteopenic. There is mild lumbosacral spondylosis. N o lytic or blastic lesions are seen. IMPRESSION: 1. There is no definitive CT evidence of colitis. No megacolon is seen. Correlate clinically. 2. The liver is cirrhotic in morphology and heterogeneous attenuation. 3. Mild splenomegaly and a small to moderate volume of abdominopelvic ascites indicate portal hyperte nsion. Ascites has increased from previous. 4. A small amount of nonocclusive thrombus at the portosplenic confluence and within branches of the superior mesenteric vein is similar to prior studies. 5. The gastric mucosa appears thickened and hyperemic. Correlate clinically for evidence of gastritis . 6. Hyperdense material within the gastric lumen likely represents ingested material. Extravasated int ramural contrast could appear similar. Correlate clinically for evidence of active GI bleeding. 7. Additional and postsurgical findings as above. ACT 112: Negative or not required by law. Electronically signed by: Jorge Luis Gann M.D. 03/01/2023 12:36 PM
--- NOTE | 2023-03-01 17:58 | Hospitalist Progress Note ---
Date of Service March 01, 2023 Assessment & Plan (1) Bilateral edema of lower extremity: Plan: This is a 73-year-old female with past med history significant for type 2 diabetes, hyperlipidemia, COPD, moderate persistent asthma, portal hypertension, paroxysmal atrial tachycardia, hypertension, history of esophageal varices, cirrhosis of liver, GERD, essential tremor, anemia due to chronic blood loss, presents with ongoing lower extremity edema and abdominal distention. C diff diarrhea C diff toxin positive 02/28/23 Contact isolation precautions Continue PO Vanco Monitor lytes, volume status Abdominal pain Abdomen diffusely tender today, increased from admission CT abd/pelvis without evidence of megacolon seen. Small to moderate volume of abdominopelvic ascites indicate portal hypertension. Ascites has increased from previous. A small amount of nonocclusive thrombus at the portosplenic confluence and within branches of the superior mesenteric vein is similar to prior studies. The gastric mucosa appears thickened and hyperemic. Correlate clinically for evidence of gastritis. Likely multifactorial given ascites, distention 2/2 infection above Bilateral lower extreme edema Abdominal distention History of liver cirrhosis Doppler negative for DVT Abdominal ultrasound showing cirrhosis with small volume of ascites. Patient states her Lasix (40mg daily) was changed to torsemide 40mg daily on 02/25 but still her edema was not improving Given dose of IV Lasix 40 mg at 0200 and again around 10 AM on 03/01 - holding additional doses for now since anticipating volume loss with c diff diarrhea Increased spironolactone to 100mg and resumed torsemide at 10mg daily per GI recs Continue to monitor volume status closely History of COPD History of asthma Continue home inhalers Hypertension Chronic; stable. Will hold amlodipine to see if contributing to pedal edema History of esophageal varices Post banding Portal hypertension Nadolol was started by GI over the summer, then transitioned to carvedilol but patient discontinued in December Due for VB surveillance with EGD next year On Protonix GI consulted History of nonoccluding PVT Following with heme onc. Per their note, no need for anticoagulation of cirrhotic patients with asymptomatic PVT in the absence of underlying cancer Due for follow up with Dr. Harrell later this month History of left breast cancer S/p lumpectomy Currently on anastrozole Follows with heme-onc DVT prophylaxis Heparin subcu Disposition Medical floor Full code Admission and Anticipated Discharge Date Admission Date: February 27, 2023 Supervising Physician Co-Signing Physician Notes Patient was seen and examined independently at bedside. Chart reviewed. Case discussed with Shaneka Cole PA-C in detail and agree with the documentation above. CT reviewed. Meds reviewed. Continue p.o. vancomycin for C. difficile. Continue diuretics for edema. Follow-up labs in a.m. Subjective Patient seen and examined in 318 in follow-up for volume overload in setting of cirrhosis. Endorses multiple liquid bowel movements overnight in setting of c diff. Diffuse abd bloating and discomfort. No N/V. Conversational dyspnea and BLE edema and abdominal ascites still noted but slightly improved since yesterday, per patient. Patient denies any fever, chills, lightheadedness, chest pain, dysuria. Review of Systems Review of Systems: At least ten systems reviewed and negative except as noted in the HPI. Physical Exam Physical Exam: Gen: WD/WN, NAD, resting in bed, A&Ox3 HEENT: Normocephalic, atraumatic, conjunctivae moist, sclerae anicteric, mucous membranes moist Lung: Clear to Auscultation bilaterally, no wheezes/rales/rhonchi Heart: Regular rate, regular rhythm, no murmurs, rubs, or gallops Abdomen: Soft, abdominal distention 2/2 fluid, diffuse TTP, +BS x 4 Extremities: 1-2+ BLE and pedal edema Skin: Warm, no rash Results & Data Results & Data Vital Signs (Past 12 Hours) Vital Signs Temp Pulse Resp BP Pulse Ox O2 Del Method 03/01/23 14:19 36.8 C 111 H 16 138/68 96 Room Air 03/01/23 07:35 36.8 C 83 16 119/71 95 Room Air Laboratory Results Short CBC 03/01/23 Range/Units 08:11 WBC 5.45 (4.8-10.8) K/ul Hgb 11.8 L (12.0-16.0) g/dl Hct 34.9 L (37.0-47.0) % Plt Count 102 L (130-400) K/uL BMP 03/01/23 08:11 Sodium 133 L Potassium 3.9 Chloride 100 Carbon Dioxide 27 BUN 10 Creatinine 0.68 Glucose 101 H Calcium 8.0 L Diagnostic Findings Abdomen Ultrasound 02/27/23 23:14 US abdomen ltd ascites HISTORY: 73 years-old Female ascites? liver cirrhosis chronic liver disease with ascites COMPARISON: CT 02/21/2023 TECHNIQUE: Limited images of the abdomen were obtained FINDINGS: Cirrhotic liver redemonstrated. Small amount of ascites noted within the right upper and lower quadrants of the abdomen. IMPRESSION: Cirrhosis with small volume of ascites. ACT 112: Negative or not required by law. The above report was generated using voice recognition software. It may contain grammatical, syntax or spelling errors. Electronically signed by: Beck Gray M.D. 02/28/2023 7:31 AM Venous Doppler Study 02/27/23 23:14 Exam(s): US VENOUS BILATERAL LOWER EXTREMITIES EXAM: US Duplex Bilateral Lower Extremities Veins CLINICAL HISTORY: Reason for exam: b/l lower ext daniel. dvt?. TECHNIQUE: Real-time duplex ultrasound scan of the bilateral lower extremity veins integrating B-mode two-dimensional vascular structure, Doppler spectral analysis, color flow Doppler imaging and compression. COMPARISON: None. FINDINGS: Right deep veins: Unremarkable. No DVT in the right common femoral, femoral, proximal deep femoral or popliteal veins. The veins demonstrate normal color flow, are normally compressible, with normal phasic flow and/or augmentation response. Right superficial veins: Unremarkable. No thrombus in the visualized right great saphenous vein. Left deep veins: Unremarkable. No DVT in the left common femoral, femoral, proximal deep femoral or popliteal veins. The veins demonstrate normal color flow, are normally compressible, with normal phasic flow and/or augmentation response. Left superficial veins: Unremarkable. No thrombus in the visualized left great saphenous vein. Soft tissues: Nonspecific edema involving the bilateral calf region. No popliteal cyst. IMPRESSION: No ultrasonographic evidence of deep venous thrombosis involving the bilateral lower extremities. Electronically signed by: Susy Caceres MD 02/28/23 01:52 AM Abdomen/Pelvis CT 03/01/23 10:52 CT SCAN OF THE ABDOMEN AND PELVIS WITH IV CONTRAST CLINICAL HISTORY: C. Difficile colitis. Worsening abdominal pain. COMPARISON STUDY: Abdominal CT dated 02/21/2023 an 08/07/2022. TECHNIQUE: Following the IV administration of 92 cc of Optiray 320, CT scan of the abdomen and pelvis is performed from the lung bases to the proximal femora. Images are reviewed in the axial, sagittal, and coronal planes. IV contrast was administered without complication. A dose lowering technique was utilized adhering to the principles of ALARA. CT DOSE: 1235.55 mGy.cm FINDINGS: Lung bases: The heart is normal in size and without pericardial effusion. There is elevation of the right hemidiaphragm with associated right basilar scarring/atelectasis. No airspace consolidation or pleural effusion is identified. Postoperative change is suggested in the left breast. There is a tiny hiatal hernia. Liver: The contrast-enhanced liver is cirrhotic in morphology and heterogeneous in attenuation. There is nodularity of the surface contour as well as hypertrop hy of the left lobe and caudate. There is no intrahepatic biliary ductal dilatation. The hepatic veins and portal veins are patent. Nonocclusive thrombus is identified at the portosplenic confluence and within branches of the mesenteric veins. This is similar to the 08/07/2022 examination and best seen on axial images #137 and #162. Gallbladder: Surgically absent noting clips in the gallbladder fossa. Spleen: The spleen is mildly enlarged measuring 13.5 cm in length. Pancreas: Atrophic and grossly unremarkable. Adrenal glands: Unremarkable. Kidneys: The contrast enhanced kidneys are normal in size and without hydronephrosis. The kidneys enhance symmetrically. Abdominal vasculature: The abdominal aorta is normal in course and caliber noting moderate to advanced atherosclerotic calcification. Bowel: The gastric mucosa appears thickened and hyperemic. Hyperdense material within the stomach as seen on axial images #104 and #145. There is postsurgical change from rectosigmoid resection with colocolonic stenosis. There has also been a right-sided colonic resection. No bowel obstruction is seen. There is diverticulosis of the remaining colon without CT evidence of acute diver ticulitis. The appendix is not identified and reported surgically absent. Ventral hernias containing nonobstructed segments of small bowel. The largest is seen on image #337. A duodenal diverticulum is incidentally noted. No significant colonic wall thickening or edema is identified. There is no evidence of megacolon. Peritoneum: There is a small to moderate volume of abdominopelvic ascites. No intraperitoneal free air is seen. Lymphadenopathy: None. Pelvic viscera: The bladder is normal as visualized. The uterus is surgically absent. No adnexal lesion is seen. Skeletal structures: The skeletal structures are osteopenic. There is mild lumbosacral spondylosis. No lytic or blastic lesions are seen. IMPRESSION: 1. There is no definitive CT evidence of colitis. No megacolon is seen. Correlate clinically. 2. The liver is cirrhotic in morphology and heterogeneous attenuation. 3. Mild splenomegaly and a small to moderate volume of abdominopelvic ascites indicate portal hypertension. Ascites has increased from previous. 4. A small amount of nonocclusive thrombus at the portosplenic confluence and within branches of the superior mesenteric vein is similar to prior studies. 5. The gastric mucosa appears thickened and hyperemic. Correlate clinically for evidence of gastritis. 6. Hyperdense material within the gastric lumen likely represents ingested material. Extravasated intramural contrast could appear similar. Correlate clinically for evidence of active GI bleeding. 7. Additional and postsurgical findings as above. ACT 112: Negative or not required by law. Electronically signed by: Jorge Luis Gann M.D. 03/01/2023 12:36 PM
[2023-03-01] MEDS: LATANOPROST 0.005% OP SOLN 2.5 ML BTL OPB SCH (19:49)
[2023-03-02] MEDS: VANCOMYCIN HCL 125 MG/2.5ML SOLN PO SCH ×4 (00:57→17:32)
[2023-03-02] MEDS: CHERRY SYRUP 5 ML UDP PO SCH ×4 (00:57→17:32)
[2023-03-02] MEDS: PANTOprazole 40 MG TAB PO SCH (06:22)
[2023-03-02 06:55] LABS: Hemoglobin 11.7 g/dl (12.0-16.0); Mean Corpuscular Hemoglobin 33.1 pg (25.0-34.0); Mean Corpuscular Hgb Conc 34.4 g/dL (32.0-36.0); Mean Corpuscular Volume 96.3 fL (80.0-100.0); Mean Platelet Volume 10.2 fL (9.4-12.4); Platelet Count 104 K/uL (130-400); RDW Coefficient of Variation 15.2 % (11.5-14.5); RDW Standard Deviation 54.1 fL (36.4-46.3); Red Blood Count 3.53 M/uL (4.20-5.40); White Blood Count 5.63 K/ul (4.8-10.8)
[2023-03-02 07:20] LABS: Albumin Globulin Ratio 0.9 (0.9-2); Albumin Level 2.8 gm/dl (3.4-5.0); BUN Creatinine Ratio 13.6 (10-20); Calcium 7.9 mg/dl (8.6-10.3); Creatinine Clr Calc Pharmacy 73.8 ml/min; Est GFR (Non-African American) 88.9 ml/min; Globulin 3.2 gm/dl (2.5-4.0); Magnesium 2.2 mg/dl (1.7-2.4); Potassium 4.1 mmol/L (3.5-5.1)
[2023-03-02] MEDS: FLUTICASONE FUROATE 200MCG 14 PUFFS/INHALER INH SCH (08:19)
[2023-03-02] MEDS: MAGNESIUM CHLORIDE W/CALCIUM 64MG DELAYED REL TAB PO SCH ×2 (08:19→20:12)
[2023-03-02] MEDS: ANASTROZOLE 1 MG TAB PO SCH (08:20)
[2023-03-02] MEDS: CALCIUM 600MG + VIT D 400 IU TAB PO SCH ×2 (08:20→20:10)
[2023-03-02] MEDS: SPIRONOLACTONE 100 MG TAB PO SCH (08:20)
[2023-03-02] MEDS: MONTELUKAST SODIUM 10 MG TABLET PO SCH (08:20)
[2023-03-02] MEDS: HEPARIN SOD 5,000 UNIT/0.5 ML VIAL SQ SCH ×2 (08:20→20:11)
[2023-03-02] MEDS: TORSEMIDE 10 MG TAB PO SCH (08:21)
[2023-03-02] MEDS: NYSTATIN CR 15 GM TUBE EXT SCH ×2 (08:21→20:11)
--- NOTE | 2023-03-02 13:49 | Hospitalist Progress Note ---
Date of Service March 02, 2023 Assessment & Plan (1) Bilateral edema of lower extremity: Plan: This is a 73-year-old female with past med history significant for type 2 diabetes, hyperlipidemia, COPD, moderate persistent asthma, portal hypertension, paroxysmal atrial tachycardia, hypertension, history of esophageal varices, cirrhosis of liver, GERD, essential tremor, anemia due to chronic blood loss, presents with ongoing lower extremity edema and abdominal distention. C diff diarrhea C diff toxin and gene positive 02/28/23 First episode. Nonsevere by criteria. Already improving with p.o. vancomycin D2/10. States no bowel movement since yesterday Abdominal pain Significantly improved. CT abd/pelvis without evidence of megacolon seen. Small to moderate volume of abdominopelvic ascites indicate portal hypertension. Ascites has increased from previous. A small amount of nonocclusive thrombus at the portosplenic confluence and within branches of the superior mesenteric vein is similar to prior studies. The gastric mucosa appears thickened and hyperemic. Correlate clinically for evidence of gastritis. Bilateral lower extreme edema Abdominal distention History of liver cirrhosis Doppler negative for DVT Abdominal ultrasound showing cirrhosis with small volume of ascites. Patient states her Lasix (40mg daily) was changed to torsemide 40mg daily on but still her edema was not improving Continue spironolactone 100mg, will increase torsemide to 20 mg daily Continue to monitor volume status closely History of COPD History of asthma Continue home inhalers Hypertension Chronic; stable. Holding off amlodipine to see if contributing to pedal edema History of esophageal varices Post banding Portal hypertension Nadolol was started by GI over the summer, then transitioned to carvedilol but patient discontinued in December Due for VB surveillance with EGD next year On Protonix Follows with GI History of nonoccluding PVT Following with heme onc. Per their note, no need for anticoagulation of cirrhotic patients with asymptomatic PVT in the absence of underlying cancer Due for follow up with Dr. Harrell later this month History of left breast cancer S/p lumpectomy Currently on anastrozole Follows with heme-onc Hypophosphatemia-repleted, recheck in a.m. Hyponatremia-relatively stable, on diuretics, recheck in a.m. DVT prophylaxis- Heparin subcu Disposition-as per discharge in 1 to 2 days pending improvement in symptoms Admission and Anticipated Discharge Date Admission Date: February 27, 2023 Subjective Patient was seen and examined at bedside. She feels better today. She has not had a bowel movement since yesterday. No more retching. No more dyspnea. States she is putting good urine output and her swelling is improving. States she has been ambulating to the bathroom and to the chair independently. Review of Systems Review of Systems: All systems reviewed & are unremarkable except as noted in Subjective Physical Exam Physical Exam: General: Lying comfortably in bed, not in distress, on room air HEENT: EOMI, JOHN, MMM Chest: Clear breath bilaterally CVS: Regular rate and rhythm, normal heart sounds, no murmur Abdomen: Soft, non tender, distended, normal bowel sounds Neuro: Awake, alert, oriented, conversing well, non focal Extremities: Bilateral pedal edema + Results & Data Results & Data Vital Signs (Past 12 Hours) Vital Signs Temp Pulse Resp BP Pulse Ox O2 Del Method 03/02/23 09:12 Room Air 03/02/23 07:55 36.4 C L 88 16 131/71 94 Room Air Laboratory Results Short CBC 03/02/23 Range/Units 05:51 WBC 5.63 (4.8-10.8) K/ul Hgb 11.7 L (12.0-16.0) g/dl Hct 34.0 L (37.0-47.0) % Plt Count 104 L (130-400) K/uL BMP 03/02/23 05:51 Sodium 132 L Potassium 4.1 Chloride 101 Carbon Dioxide 25 BUN 9 Creatinine 0.66 Glucose 90 Calcium 7.9 L Liver Function 03/02/23 Range/Units 05:51 Total Bilirubin 2.0 H (0.2-1.0) mg/dl AST 49 H (13-39) U/L ALT 18 (7-52) U/L Alkaline Phosphatase 80 (34-104) U/L Albumin 2.8 L (3.4-5.0) gm/dl Medications Administered Current Inpatient Medications Amlodipine Besylate (Amlodipine Besylate 5 Mg Tab) 10 mg PO DAILY WILLOW Stop: 03/30/23 08:59 Last Admin: 03/01/23 08:56 Dose: 10 mg Anastrozole (Anastrozole 1 Mg Tab) 1 mg PO QAM WILLOW Stop: 03/30/23 08:59 Last Admin: 03/02/23 08:20 Dose: 1 mg Artificial Tears (Artificial Tears) 1 drops OP QID PRN PRN Reason: Dryness Stop: 03/30/23 01:27 Calcium/Vitamin D (Calcium 600mg + Vit D 400 Iu Tab) 1 tab PO BID WILLOW Stop: 03/30/23 08:59 Last Admin: 03/02/23 08:20 Dose: 1 tab Tovar Syrup (Tovar Syrup 5 Ml Udp) 5 ml PO Q6 WILLOW Stop: 03/10/23 15:59 Last Admin: 03/02/23 12:17 Dose: 5 ml Fluticasone Furoate (Fluticasone Furoate 200mcg 14 Puffs/Inhaler) 1 puffs INH QAM WILLOW Stop: 03/30/23 08:59 Last Admin: 03/02/23 08:19 Dose: 1 puffs Furosemide (Furosemide 40 Mg/4 Ml Vial) 40 mg IV BIDM WILLOW Stop: 03/30/23 10:59 Last Admin: 02/28/23 12:12 Dose: 40 mg Guaifenesin (Guaifenesin Sugar Free 200 Mg/10 Ml Udc) 200 mg PO Q6H PRN PRN Reason: cough Stop: 03/30/23 01:24 Heparin Sodium (Porcine) (Heparin Sod 5,000 Unit/0.5 Ml Vial) 5,000 units SQ Q12 WILLOW Stop: 03/30/23 01:08 Last Admin: 03/02/23 08:20 Dose: 5,000 units Promethazine HCl 6.25 mg/ (Sodium Chloride) 50.25 mls @ 201 mls/hr IV Q6H PRN PRN Reason: Nausea And Vomiting Stop: 03/30/23 08:19 Last Infusion: 02/28/23 10:01 Dose: Infused Latanoprost (Latanoprost 0.005% Op Soln 2.5 Ml Btl) 1 drops OPB HS WILLOW Stop: 03/30/23 20:59 Last Admin: 03/01/23 19:49 Dose: 1 drops Levalbuterol HCl (Levalbuterol Tartrate 15 Gm Hfa.Aer.Ad) 1 puffs INH Q4H PRN PRN Reason: Wheezing Stop: 03/30/23 01:08 Magnesium Chloride (Magnesium Chloride W/Calcium 64mg Delayed Rel Tab) 64 mg PO BID WILLOW Stop: 03/30/23 08:59 Last Admin: 03/02/23 08:19 Dose: 64 mg Montelukast Sodium (Montelukast Sodium 10 Mg Tablet) 10 mg PO QAM [facility] Stop: 03/30/23 08:59 Last Admin: 03/02/23 08:20 Dose: 10 mg Nystatin (Nystatin Cr 15 Gm Tube) 1 appln EXT BID [facility] Stop: 03/30/23 01:08 Last Admin: 03/02/23 08:21 Dose: 1 appln Ondansetron HCl (Ondansetron Inj 2 Mg/Ml 2 Ml Vial) 4 mg IV Q6H PRN PRN Reason: Nausea And Vomiting Stop: 03/30/23 15:57 Pantoprazole Sodium (Pantoprazole 40 Mg Tab) 40 mg PO DAILYBB [facility] Stop: 03/30/23 06:29 Last Admin: 03/02/23 06:22 Dose: 40 mg Potassium Phosphate (Pot Phosphate Monobasic W/ Sod Tab) 1 tab PO QID [facility] Stop: 04/02/23 16:59 Spironolactone (Spironolactone 100 Mg Tab) 100 mg PO QAM [facility] Stop: 03/31/23 08:59 Last Admin: 03/02/23 08:20 Dose: 100 mg Torsemide (Torsemide 10 Mg Tab) 10 mg PO QAM [facility] Stop: 03/31/23 08:59 Last Admin: 03/02/23 08:21 Dose: 10 mg Vancomycin HCl (Vancomycin Hcl 125 Mg/2.5ml Soln) 125 mg PO Q6 [facility] Stop: 03/10/23 15:59 Last Admin: 03/02/23 12:17 Dose: 125 mg
[2023-03-02] MEDS: POT PHOSPHATE MONOBASIC W/ SOD TAB PO SCH ×2 (17:35→20:12)
[2023-03-02] MEDS: LATANOPROST 0.005% OP SOLN 2.5 ML BTL OPB SCH (20:11)
[2023-03-03] MEDS: CHERRY SYRUP 5 ML UDP PO SCH ×4 (00:37→17:19)
[2023-03-03] MEDS: VANCOMYCIN HCL 125 MG/2.5ML SOLN PO SCH ×4 (00:37→17:19)
[2023-03-03] MEDS: PANTOprazole 40 MG TAB PO SCH (05:25)
[2023-03-03 06:04] LABS: Hemoglobin 11.3 g/dl (12.0-16.0); Mean Corpuscular Hemoglobin 33.2 pg (25.0-34.0); Mean Corpuscular Hgb Conc 34.2 g/dL (32.0-36.0); Mean Corpuscular Volume 97.1 fL (80.0-100.0); Mean Platelet Volume 9.7 fL (9.4-12.4); Platelet Count 93 K/uL (130-400); RDW Coefficient of Variation 15.2 % (11.5-14.5); RDW Standard Deviation 53.7 fL (36.4-46.3); White Blood Count 5.08 K/ul (4.8-10.8)
[2023-03-03 06:07] LABS: Calcium 8.2 mg/dl (8.6-10.3); Potassium 4.9 mmol/L (3.5-5.1)
[2023-03-03 06:13] LABS: BUN Creatinine Ratio 18.5 (10-20); Creatinine Clr Calc Pharmacy 90.1 ml/min; Est GFR (Non-African American) 94.9 ml/min; Phosphorus 2.8 mg/dl (2.5-4.9)
[2023-03-03] MEDS: FLUTICASONE FUROATE 200MCG 14 PUFFS/INHALER INH SCH (08:27)
[2023-03-03] MEDS: MAGNESIUM CHLORIDE W/CALCIUM 64MG DELAYED REL TAB PO SCH ×2 (08:27→19:54)
[2023-03-03] MEDS: HEPARIN SOD 5,000 UNIT/0.5 ML VIAL SQ SCH ×2 (08:27→19:54)
[2023-03-03] MEDS: CALCIUM 600MG + VIT D 400 IU TAB PO SCH ×2 (08:28→19:55)
[2023-03-03] MEDS: TORSEMIDE 10 MG TAB PO SCH ×2 (08:28→17:19)
[2023-03-03] MEDS: ANASTROZOLE 1 MG TAB PO SCH (08:28)
[2023-03-03] MEDS: SPIRONOLACTONE 100 MG TAB PO SCH (08:28)
[2023-03-03] MEDS: MONTELUKAST SODIUM 10 MG TABLET PO SCH (08:29)
[2023-03-03] MEDS: POT PHOSPHATE MONOBASIC W/ SOD TAB PO SCH (08:29)
[2023-03-03] MEDS: NYSTATIN CR 15 GM TUBE EXT SCH ×2 (08:33→19:55)
[2023-03-03] MEDS ORDERED: TORSEMIDE 10 MG TAB PO SCH (09:00)
--- NOTE | 2023-03-03 11:51 | Hospitalist Progress Note ---
Date of Service March 03, 2023 Assessment & Plan (1) Bilateral edema of lower extremity: Plan: This is a 73-year-old female with past med history significant for type 2 diabetes, hyperlipidemia, COPD, moderate persistent asthma, portal hypertension, paroxysmal atrial tachycardia, hypertension, history of esophageal varices, cirrhosis of liver, GERD, essential tremor, anemia due to chronic blood loss, presents with ongoing lower extremity edema and abdominal distention. C diff diarrhea C diff toxin and gene positive 02/28/23 First episode. Nonsevere by criteria. Already improving with p.o. vancomycin . Bowel movement now mushy. Abdominal pain-resolved. CT abd/pelvis without evidence of megacolon seen. Small to moderate volume of abdominopelvic ascites indicate portal hypertension. Ascites has increased from previous. A small amount of nonocclusive thrombus at the portosplenic confluence and within branches of the superior mesenteric vein is similar to prior studies. The gastric mucosa appears thickened and hyperemic. Correlate clinically for evidence of gastritis. Bilateral lower extreme edema Abdominal distention History of liver cirrhosis Doppler negative for DVT Abdominal ultrasound showing cirrhosis with small volume of ascites. Patient states her Lasix (40mg daily) was changed to torsemide 40mg daily on 02/25 but still her edema was not improving Continue spironolactone 100mg, will increase torsemide to 20 mg twice daily Continue to monitor volume status closely History of COPD History of asthma Continue home inhalers Hypertension Chronic; stable. Holding off amlodipine to see if contributing to pedal edema History of esophageal varices Post banding Portal hypertension Nadolol was started by GI over the summer, then transitioned to carvedilol but patient discontinued in December Due for VB surveillance with EGD next year On Protonix Follows with GI History of nonoccluding PVT Following with heme onc. Per their note, no need for anticoagulation of cirrhotic patients with asymptomatic PVT in the absence of underlying cancer Due for follow up with Dr. Harrell later this month History of left breast cancer S/p lumpectomy Currently on anastrozole Follows with heme-onc Hypophosphatemia-resolved with repletion Hyponatremia-relatively stable, on diuretics, recheck in a.m. DVT prophylaxis- Heparin subcu Disposition-anticipate discharge home in 1 to 2 days Admission and Anticipated Discharge Date Admission Date: February 27, 2023 Subjective Patient was seen and examined at bedside. States her bowel movement is now mushy-had 3 this morning-no more diarrhea. Still has abdominal and foot swelling. No fever, chills, chest pain, abdomen, nausea or vomiting. She is hoping to go home tomorrow Review of Systems Review of Systems: All systems reviewed & are unremarkable except as noted in Subjective Physical Exam Physical Exam: General: Lying comfortably in bed, not in distress, on room air HEENT: EOMI, JOHN, MMM Chest: Clear breath bilaterally CVS: Regular rate and rhythm, normal heart sounds, no murmur Abdomen: Soft, non tender, distended, normal bowel sounds Neuro: Awake, alert, oriented, conversing well, non focal Extremities: Bilateral pedal edema + Results & Data Results & Data Vital Signs (Past 12 Hours) Vital Signs Temp Pulse Resp BP Pulse Ox O2 Del Method 03/03/23 06:36 36.8 C 74 16 113/70 96 Room Air Laboratory Results Short CBC 03/03/23 Range/Units 05:26 WBC 5.08 (4.8-10.8) K/ul Hgb 11.3 L (12.0-16.0) g/dl Hct 33.0 L (37.0-47.0) % Plt Count 93 L (130-400) K/uL BMP 03/03/23 05:26 Sodium 130 L Potassium 4.9 Chloride 100 Carbon Dioxide 25 BUN 10 Creatinine 0.54 L Glucose 90 Calcium 8.2 L
[2023-03-03] MEDS: LATANOPROST 0.005% OP SOLN 2.5 ML BTL OPB SCH (19:52)
[2023-03-04] MEDS: CHERRY SYRUP 5 ML UDP PO SCH ×3 (00:17→11:56)
[2023-03-04] MEDS: VANCOMYCIN HCL 125 MG/2.5ML SOLN PO SCH ×3 (00:17→12:00)
[2023-03-04] MEDS: PANTOprazole 40 MG TAB PO SCH (05:07)
[2023-03-04 06:25] LABS: Hematocrit (blood only) 35.5 % (37.0-47.0); Hemoglobin 11.8 g/dl (12.0-16.0); Mean Corpuscular Hemoglobin 32.9 pg (25.0-34.0); Mean Corpuscular Hgb Conc 33.2 g/dL (32.0-36.0); Mean Corpuscular Volume 98.9 fL (80.0-100.0); Mean Platelet Volume 10.5 fL (9.4-12.4); Platelet Count 85 K/uL (130-400); RDW Coefficient of Variation 15.7 % (11.5-14.5); RDW Standard Deviation 57.3 fL (36.4-46.3); Red Blood Count 3.59 M/uL (4.20-5.40)
[2023-03-04 06:38] LABS: Calcium 8.5 mg/dl (8.6-10.3); Potassium 4.1 mmol/L (3.5-5.1)
[2023-03-04 06:44] LABS: Creatinine Clr Calc Pharmacy 60.8 ml/min; Est GFR (Non-African American) 74.2 ml/min
[2023-03-04] MEDS: MONTELUKAST SODIUM 10 MG TABLET PO SCH (07:53)
[2023-03-04] MEDS: SPIRONOLACTONE 100 MG TAB PO SCH (07:53)
[2023-03-04] MEDS: CALCIUM 600MG + VIT D 400 IU TAB PO SCH (07:53)
[2023-03-04] MEDS: ANASTROZOLE 1 MG TAB PO SCH (07:54)
[2023-03-04] MEDS: TORSEMIDE 10 MG TAB PO SCH (07:54)
[2023-03-04] MEDS: MAGNESIUM CHLORIDE W/CALCIUM 64MG DELAYED REL TAB PO SCH (07:54)
[2023-03-04] MEDS: HEPARIN SOD 5,000 UNIT/0.5 ML VIAL SQ SCH (07:55)
[2023-03-04] MEDS: FLUTICASONE FUROATE 200MCG 14 PUFFS/INHALER INH SCH (07:55)
[2023-03-04] MEDS: NYSTATIN CR 15 GM TUBE EXT SCH (07:55)
[2023-03-04 07:57] LABS: Magnesium 1.8 mg/dl (1.7-2.4)
--- NOTE | 2023-03-04 09:48 | Hospitalist Progress Note ---
Date of Service March 04, 2023 Assessment & Plan (1) Bilateral edema of lower extremity: Plan: This is a 73-year-old female with past med history significant for type 2 diabetes, hyperlipidemia, COPD, moderate persistent asthma, portal hypertension, paroxysmal atrial tachycardia, hypertension, history of esophageal varices, cirrhosis of liver, GERD, essential tremor, anemia due to chronic blood loss, presents with ongoing lower extremity edema and abdominal distention. C diff diarrhea C diff toxin and gene positive 02/28/23 First episode. Nonsevere by criteria. Already improving with p.o. vancomycin . Bowel movement now mushy. Abdominal pain-resolved. CT abd/pelvis without evidence of megacolon seen. Small to moderate volume of abdominopelvic ascites indicate portal hypertension. Ascites has increased from previous. A small amount of nonocclusive thrombus at the portosplenic confluence and within branches of the superior mesenteric vein is similar to prior studies. The gastric mucosa appears thickened and hyperemic. Correlate clinically for evidence of gastritis. Bilateral lower extreme edema Abdominal distention History of liver cirrhosis Doppler negative for DVT Abdominal ultrasound showing cirrhosis with small volume of ascites. Patient states her Lasix (40mg daily) was changed to torsemide 40mg daily on 02/25 but still her edema was not improving Continue spironolactone 100mg, will increase torsemide to 20 mg twice daily Continue to monitor volume status closely History of COPD History of asthma Continue home inhalers Hypertension Chronic; stable. Holding off amlodipine to see if contributing to pedal edema History of esophageal varices Post banding Portal hypertension Nadolol was started by GI over the summer, then transitioned to carvedilol but patient discontinued in December Due for VB surveillance with EGD next year On Protonix Follows with GI History of nonoccluding PVT Following with heme onc. Per their note, no need for anticoagulation of cirrhotic patients with asymptomatic PVT in the absence of underlying cancer Due for follow up with Dr. Harrell later this month History of left breast cancer S/p lumpectomy Currently on anastrozole Follows with heme-onc Hypophosphatemia-resolved with repletion Hyponatremia-relatively stable, on diuretics, recheck in a.m. DVT prophylaxis- Heparin subcu Disposition-anticipate discharge home in 1 to 2 days Admission and Anticipated Discharge Date Admission Date: February 27, 2023 Results & Data Results & Data Vital Signs (Past 12 Hours) Vital Signs Temp Pulse Resp BP Pulse Ox O2 Del Method 03/04/23 07:30 36.6 C 94 H 16 135/71 94 Room Air
--- NOTE | 2023-03-04 14:40 | Discharge Summary ---
Discharge Summary Date of Service March 04, 2023 Notes For Next Care Provider Please ensure GI follow up Medication Changes From Visit Continue PO Vancomycin 125mg q6h for 7 more days Spironolactone increased from 50mg to 100mg daily Torsemide changed to 20mg BID daily Discontinued amlodipine Admission HPI Per Admitting Provider 73-year-old female with past med history significant for type 2 diabetes, hyperlipidemia, COPD, moderate persistent asthma, portal hypertension, paroxysmal atrial tachycardia, hypertension, history of esophageal varices, ci rrhosis of liver, GERD, essential tremor, anemia due to chronic blood loss, presents with ongoing lower extremity edema and abdominal distention. Patient states was recently in the ER for lower extremity edema and she was advised to increase Lasix and follow with PCP. Patient states she saw PCP and the Lasix was changed to torsemide but her lower extremity edema was not getting better and also her abdomen getting distended so she came back to the ER. Denies any chest pain or shortness of breath. No cough. No fevers. No headache or back pain. On and off abdominal pain. No blood in stools or black stools. Micturating okay. Currently resting comfortably and hemodynamically stable. Past medical history as mentioned above. Past surgical history. Right total knee arthroplasty. Breast biopsy. Colonoscopy. EGD. Left knee arthroscopy. Partial mastectomy. Partial hysterectomy. Reduction of breast. Removal of bowel lesions. Removed of oviducts. Lumbar laminectomy. Cholecystectomy. Tonsillectomy. Repair of bowel bladder fistula. Repair of incisional hernia. Repair of nasal septum.Revision of knee joint replacement. Sacroiliac joint injection. Left tendon sheath incision. Ultrasound-guided breast biopsy left side. Social history. . No smoking. No alcohol. No drug use. Family history. She says allergies. Sister had gallbladder cancer. Paternal grandfather had prostate cancer. Admission Exam Per Admitting Provider General- Not in distress Head- atraumatic Eyes- PERRL. ENT- oropharynx clear Neck- supple, no JVD. Lungs- clear to auscultation, no wheezing or crackles. Heart- regular rhythm; no murmur, no gallop. Abdomen- normal bowel sounds, soft, nontender, mild distension. Extremities-Lower extremity edema present, no erythema seen Neuro- alert, oriented x 3; PERRL, no facial palsy; no dysarthria; obeys commands, moves extremities. Principal Dx & Hospital Course #1 = Principal Diagnosis (1) Clostridium difficile colitis: (2) Bilateral edema of lower extremity: (3) Abdominal ascites: (4) Cirrhosis: (5) Diabetes: Plan This is a 73-year-old female with past med history significant for type 2 diabetes, hyperlipidemia, COPD, moderate persistent asthma, portal hypertension, paroxysmal atrial tachycardia, hypertension, history of esophageal varices, cirrhosis of liver, GERD, essential tremor, anemia due to chronic blood loss who was admitted with ongoing lower extremity edema and abdominal distention. Course was complicated by c diff diarrhea. C diff diarrhea C diff toxin and gene positive 02/28/23 First episode. Nonsevere by criteria. Improving with p.o. vancomycin 125mg q6h and discharged with 7 more days for a total of 10 days of treatment. Abdominal pain-resolved on discharge. CT abd/pelvis without evidence of megacolon but concerning for ascites/portal hypertension, nonocclusive thrombus at the portosplenic confluence and within branches of the superior mesenteric vein that was similar to prior studies. Also possible gastritis. Bilateral lower extreme edema Abdominal distention History of liver cirrhosis Doppler negative for DVT Abdominal ultrasound showing cirrhosis with small volume of ascites. Patient states her Lasix (40mg daily) was changed to torsemide 40mg daily on 02/25 but still her edema was not improving Continue spironolactone 100mg, will increase torsemide to 20 mg twice daily GI and PCP follow up History of COPD History of asthma Continue home inhalers Hypertension Chronic; stable. Continue to hold amlodipine in the setting of volume overload as it can cause pedal edema. PCP follow up for continued BP monitoring. History of esophageal varices Post banding Portal hypertension Nadolol was started by GI over the summer, then transitioned to carvedilol but patient discontinued in December Due for VB surveillance with EGD next year On Protonix Follows with GI- GI follow up at discharge History of nonoccluding PVT Following with heme onc. Per their note, no need for anticoagulation of cirrhotic patients with asymptomatic PVT in the absence of underlying cancer Due for follow up with Dr. Harrell later this month History of left breast cancer S/p lumpectomy Currently on anastrozole Follows with heme-onc Hypophosphatemia resolved with repletion Hyponatremia relatively stable PCP followup Consider nephrology follow up for further evaluation. Discharge Exam General: Alert, oriented. No acute distress Skin: No noted rashes or bruises Psych: Appropriate mood and affect Neuro: No gross deficits HEENT: NC/AT Chest: Nontender to palpation. CV: RRR Resp:no increased effort of breathing Abdomen: Soft, nontender, nondistended Extremities: + edema in lower extremities bilaterally. Updated Medication List Medication Instructions Recorded Confirmed Type calcium carbonate 600 mg-vitamin 1 cap PO BID 02/11/18 02/27/23 History D3 10 mcg (400 unit) capsule anastrozole 1 mg tablet 1 mg PO QAM 04/11/18 02/27/23 History latanoprost 0.005 % eye drops 1 drp OPB HS 04/11/18 02/27/23 History montelukast 10 mg tablet 10 mg PO QAM 04/11/18 02/27/23 History pantoprazole 40 mg tablet,delayed 40 mg PO DAILYBB 04/11/18 02/27/23 History release levalbuterol tartrate 45 1 puff inhalation Q4H PRN Wheezing 11/11/18 02/27/23 History mcg/actuation aerosol inhaler milk thistle seed extract 175 mg 175 mg PO QAM 01/21/19 02/27/23 History tablet acetaminophen 650 mg 650 mg PO Q8H PRN Pain 07/14/20 02/27/23 History tablet,extended release (Tylenol 8 Hour) blood sugar diagnostic (EV ConnectTouch #50 ea 07/15/20 Rx Verio test strips) lancets 30 gauge (OneTouch Delica #100 ea 07/15/20 Rx Lancets) cyclosporine 0.05 % eye drops in a 1 drp ophthalmic (eye) QAM 12/22/20 02/27/23 History dropperette (Restasis) cinnamon bark 500 mg capsule 1,000 mg PO BID 01/20/22 02/27/23 History (Cinnamon) fluticasone propionate 110 2 puff inhalation AMPM 01/20/22 02/27/23 History mcg/actuation HFA aerosol inhaler garlic 100 mg tablet 1,000 mg PO BID 01/20/22 02/27/23 History guaifenesin 100 mg/5 mL oral 200 mg (10 mL) PO Q6H PRN cough 01/22/22 02/27/23 Rx liquid (Cough Syrup) #473 mL spironolactone 100 mg tablet 100 mg PO QAM #30 tabs 03/04/23 Rx torsemide 20 mg tablet 20 mg PO BID #60 tabs 03/04/23 02/28/23 Rx vancomycin 125 mg capsule 125 mg PO Q6H 7 days #28 caps 03/04/23 Rx Hospital Stay Data Consultations 02/27/23 20:28 ED Decision to Admit Stat 02/28/23 08:00 Consult Gastroenterology Routine Diagnostic Imagining Performed 02/27/23 23:14 US abdomen ltd ascites Routine US venous doppler LE BI Urgent 03/01/23 10:52 CT Abd and Pelvis [CT abd pelvis IV con only] Routine Abdomen Ultrasound 02/27/23 23:14 US abdomen ltd ascites HISTORY: 73 years-old Female ascites? liver cirrhosis chronic liver disease with ascites COMPARISON: CT 02/21/2023 TECHNIQUE: Limited images of the abdomen were obtained FINDINGS: Cirrhotic liver redemonstrated. Small amount of ascites noted within the right upper and lower quadrants of the abdomen. IMPRESSION: Cirrhosis with small volume of ascites. ACT 112: Negative or not required by law. The above report was generated using voice recognition software. It may contain grammatical, syntax or spelling errors. Electronically signed by: Beck Gray M.D. 02/28/2023 7:31 AM Venous Doppler Study 02/27/23 23:14 Exam(s): US VENOUS BILATERAL LOWER EXTREMITIES EXAM: US Duplex Bilateral Lower Extremities Veins CLINICAL HISTORY: Reason for exam: b/l lower ext daniel. dvt?. TECHNIQUE: Real-time duplex ultrasound scan of the bilateral lower extremity veins integrating B-mode two-dimensional vascular structure, Doppler spectral analysis, color flow Doppler imaging and compression. COMPARISON: None. FINDINGS: Right deep veins: Unremarkable. No DVT in the right common femoral, femoral, proximal deep femoral or popliteal veins. The veins demonstrate normal color flow, are normally compressible, with normal phasic flow and/or augmentation response. Right superficial veins: Unremarkable. No thrombus in the visualized right great saphenous vein. Left deep veins: Unremarkable. No DVT in the left common femoral, femoral, proximal deep femoral or popliteal veins. The veins demonstrate normal color flow, are normally compressible, with normal phasic flow and/or augmentation response. Left superficial veins: Unremarkable. No thrombus in the visualized left great saphenous vein. Soft tissues: Nonspecific edema involving the bilateral calf region. No popliteal cyst. IMPRESSION: No ultrasonographic evidence of deep venous thrombosis involving the bilateral lower extremities. Electronically signed by: Susy Caceres MD 02/28/23 01:52 AM Abdomen/Pelvis CT 03/01/23 10:52 CT SCAN OF THE ABDOMEN AND PELVIS WITH IV CONTRAST CLINICAL HISTORY: C. Difficile colitis. Worsening abdominal pain. COMPARISON STUDY: Abdominal CT dated 02/21/2023 an 08/07/2022. TECHNIQUE: Following the IV administration of 92 cc of Optiray 320, CT scan of the abdomen and pelvis is performed from the lung bases to the proximal femora. Images are reviewed in the axial, sagittal, and coronal planes. IV contrast was administered without complication. A dose lowering technique was utilized adhering to the principles of ALARA. CT DOSE: 1235.55 mGy.cm FINDINGS: Lung bases: The heart is normal in size and without pericardial effusion. There is elevation of the right hemidiaphragm with associated right basilar scarring/atelectasis. No airspace consolidation or pleural effusion is identified. Postoperative change is suggested in the left breast. There is a tiny hiatal hernia. Liver: The contrast-enhanced liver is cirrhotic in morphology and heterogeneous in attenuation. There is nodularity of the surface contour as well as hypertrophy of the left lobe and caudate. There is no intrahepatic biliary ductal dilatation. The hepatic veins and portal veins are patent. Nonocclusive thrombus is identified at the portosplenic confluence and within branches of the mesenteric veins. This is similar to the 08/07/2022 examination and best seen on axial images #137 and #162. Gallbladder: Surgically absent noting clips in the gallbladder fossa. Spleen: The spleen is mildly enlarged measuring 13.5 cm in length. Pancreas: Atrophic and grossly unremarkable. Adrenal glands: Unremarkable. Kidneys: The contrast enhanced kidneys are normal in size and without hydronephrosis. The kidneys enhance symmetrically. Abdominal vasculature: The abdominal aorta is normal in course and caliber noting moderate to advanced atherosclerotic calcification. Bowel: The gastric mucosa appears thickened and hyperemic. Hyperdense material within the stomach as seen on axial images #104 and #145. There is postsurgical change from rectosigmoid resection with colocolonic stenosis. There has also been a right-sided colonic resection. No bowel obstruction is seen. There is diverticulosis of the remaining colon without CT evidence of acute diverticulitis. The appendix is not identified and reported surgically absent. Ventral hernias containing nonobstructed segments of small bowel. The largest is seen on image #337. A duodenal diverticulum is incidentally noted. No significant colonic wall thickening or edema is identified. There is no evidence of megacolon. Peritoneum: There is a small to moderate volume of abdominopelvic ascites. No intraperitoneal free air is seen. Lymphadenopathy: None. Pelvic viscera: The bladder is normal as visualized. The uterus is surgically absent. No adnexal lesion is seen. Skeletal structures: The skeletal structures are osteopenic. There is mild lumbosacral spondylosis. No lytic or blastic lesions are seen. IMPRESSION: 1. There is no definitive CT evidence of colitis. No megacolon is seen. Correlate clinically. 2. The liver is cirrhotic in morphology and heterogeneous attenuation. 3. Mild splenomegaly and a small to moderate volume of abdominopelvic ascites indicate portal hypertension. Ascites has increased from previous. 4. A small amount of nonocclusive thrombus at the portosplenic confluence and within branches of the superior mesenteric vein is similar to prior studies. 5. The gastric mucosa appears thickened and hyperemic. Correlate clinically for evidence of gastritis. 6. Hyperdense material within the gastric lumen likely represents ingested material. Extravasated intramural contrast could appear similar. Correlate clinically for evidence of active GI bleeding. 7. Additional and postsurgical findings as above. ACT 112: Negative or not required by law. Electronically signed by: Jorge Luis Gann M.D. 03/01/2023 12:36 PM Pending Results Patient Have Any Pending Studies at Discharge: No Discharge Instructions Given to Patient (Per Discharging Provider) Ms. Knapp, We are discharging you home with medications to continue after treating you in the hospital. We are discharging you home with 7 more days of the oral antibiotic vancomycin to treat your diarrhea. Please stop taking home laxatives and stool softeners (colace, etc). We changed your home medications to help with your extra fluid. We increased your spironolactone to 100mg daily and we advise taking your torsemide 20mg twice a day. Try to not use processed foods that are rich in sodium. STOP taking the medication amlodipine as it can cause swelling around your ankles. 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 It was a pleasure taking care of you while here. Total Time Total Time Spent Total Time Spent (In Minutes): > 30 minutes
== END 2023-03-04 16:21 | disposition home or self-care (01) | DRG 433 ==
LOC: ED 15:56 → SUATTDRO 21:04 → 3E 21:04

== ENCOUNTER 2023-03-22 16:48 | Inpatient (IN) ==
--- NOTE | 2023-03-22 17:02 | ED Triage Note ---
Date of Service March 22, 2023 History of Present Illness This patient was briefly evaluated while in triage. An abbreviated physical exam was performed. This patient is a 73-year-old Female who presents to the ED for evaluation of high sodium. She denies a history of this. She states she was getting routine labs done yesterday and was called and told her sodium level was high. She reports that she feels weak, has cramping in her legs and is unable to eat. Physical Exam VITALS: Vitals are noted on the nurse's note and reviewed by myself. GENERAL: This is a 73-year-old female, in no acute distress, sitting up in a wheelchair in triage. SKIN: The skin was without rashes. HEAD: Normocephalic atraumatic. HEART: Regular rate and rhythm without murmurs gallops or rubs. LUNGS: Clear to auscultation bilaterally without wheezes, rales or rhonchi. NEURO: Patient was alert and oriented to person place and time. Initial orders for labs and / or imaging were placed and patient was placed in the waiting area until a bed is available. Please see further documentation for the full ED course.
[2023-03-22 18:27] LABS: Alanine Aminotransferase 34 U/L (7-52); Albumin Globulin Ratio 0.9 (0.9-2); Albumin Level 3.4 gm/dl (3.4-5.0); Alkaline Phosphatase 122 U/L (34-104); Anion Gap 12 (3-11); Aspartate Aminotransferase 66 U/L (13-39); BUN Creatinine Ratio 24.8 (10-20); Bilirubin,Total 1.6 mg/dl (0.2-1.0); Blood Urea Nitrogen 31 mg/dl (6-23); Calcium 8.3 mg/dl (8.6-10.3); Carbon Dioxide 21 mmol/L (21-32); Chloride 86 mmol/L (98-107); Est GFR (African American) 50.1 ml/min; Est GFR (Non-African American) 43.2 ml/min; Glucose 90 mg/dl (70-99(Fasting)); Magnesium 2.4 mg/dl (1.7-2.4); Potassium 4.5 mmol/L (3.5-5.1); Sodium 119 mmol/L (136-145); Total Protein 7.4 gm/dl (6.0-8.3)
[2023-03-22 18:28] LABS: Basophils # (auto) 0.02 K/uL (0.00-0.20); Basophils % (auto) 0.2 %; Eosinophils # (auto) 0.02 K/uL (0.00-0.50); Eosinophils % (auto) 0.2 %; Hematocrit (blood only) 32.3 % (37.0-47.0); Hemoglobin 11.6 g/dl (12.0-16.0); Immature Granulocytes # (auto) 0.08 K/uL (0.01-0.20); Immature Granulocytes % (auto) 0.8 %; Lymphocytes # (auto) 1.41 K/uL (1.20-3.40); Lymphocytes % (auto) 13.5 %; Mean Corpuscular Hgb Conc 35.9 g/dL (32.0-36.0); Mean Corpuscular Volume 91.8 fL (80.0-100.0); Mean Platelet Volume 9.4 fL (9.4-12.4); Monocytes # (auto) 1.65 K/uL (0.11-0.59); Monocytes % (auto) 15.8 %; Neutrophils # (auto) 7.29 K/uL (1.40-6.50); Neutrophils % (auto) 69.5 %; Platelet Count 189 K/uL (130-400); RDW Coefficient of Variation 14.6 % (11.5-14.5); RDW Standard Deviation 49.1 fL (36.4-46.3); Red Blood Count 3.52 M/uL (4.20-5.40); White Blood Count 10.47 K/ul (4.8-10.8)
[2023-03-22] MEDS ORDERED: SODIUM CHLORIDE 0.9% 500 ML IV ONE (18:29)
[2023-03-22] MEDS ORDERED: ONDANSETRON INJ 2 MG/ML 2 ML VIAL IV STA (19:04)
[2023-03-22] MEDS ORDERED: ONDANSETRON 4 MG OD TAB PO STA (19:04)
--- NOTE | 2023-03-22 19:32 | Emergency Department Note ---
Impression & Plan Acute hyponatremia, Weakness, Vomiting ED Provider Note NAME: PAOLO CANDELARIA AGE: 73 SEX: F : 1950 ARRIVES VIA: Walk-In INFORMANT: Patient ED PROVIDER(S): Julio Ferguson DO CHIEF COMPLAINT: weakness HPI: Patient is a 73-year-old female who presents the ER for cramping in her legs weakness and some intermittent vomiting. She has a past medical history of anasarca and cirrhosis who presents the ER referred in for hyponatremia. She notes she does have a little bit of a headache. No change in vision. No weakness or numbness in the arms or legs. No chest pain but does have some shortness of breath she does admit to some nausea. No dysuria urgency or frequency. No other exacerbating or remitting factors. ADDITIONAL HISTORY OBTAINED: Per HPI Chronic Medical/Social Conditions Affecting Care: Per HPI PAST MEDICAL HISTORY:See Below PAST SURGICAL HISTORY:See Below FAMILY HISTORY:See Below SOCIAL HISTORY:See Below HOME MEDICATIONS:See Below ALLERGIES:See Below VITALS:See Below PHYSICAL EXAMINATION: GENERAL: Sitting up in bed, alert, well appearing, well nourished, no distress, non-toxic EYE EXAM: normal conjunctiva. PERRL and EOM's grossly intact. OROPHARYNX: no exudate, no erythema, lips, buccal mucosa, and tongue normal and mucous membranes are moist NECK: supple, no nuchal rigidity, no adenopathy, non-tender LUNGS: Clear to auscultation. Normal chest wall mechanics HEART: no murmurs, S1 normal and S2 normal ABDOMEN: abdomen soft, non-tender, normo-active bowel sounds, no masses, no rebound or guarding. UPPER EXTREMITIES: upper extremities are grossly normal. LOWER EXTREMITIES: No pitting edema. NEURO EXAM: Normal sensorium, cranial nerves II-XII grossly intact, normal speech, no gross weakness of arms, no gross weakness of legs. MEDICAL DECISION MAKING: Patient is a 73-year-old female who presents ER with above-stated complaint. IV was established blood was obtained. Labs show no significant leukocytosis. Mild anemia 11.6. Sodium was significant low at 119. Creatinine 125. LFTs bilirubin was remarkable for T. bili at 1.6. Troponin negative. Patient was given IV fluids. CT abdomen pelvis showed a colitis. Patient was updated bedside. Discussed with the hospitalist for further evaluation management and treatment. Complete neurologic intact. External Records Reviewed: Previous admission blood work reviewed and showed no significant hyponatremia Consults/Care Managements Discussions: Per MDM Triage Nursing notes reviewed. Limited review of prior medical records performed Vital Signs: reviewed and remarkable for no significant abnormalities Differential diagnosis: Infection, dehydration, metabolic abnormality, hypo/hyperglycemia, electrolyte disturbance, anemia, hypoxia, cardiac sources, intracerebral event, toxicologic, neurologic, as well as other pathologies. ER treatment provided: See below Diagnostics interpreted by me include EKG and cardiac monitoring as listed below: -Cardiac Monitoring: An order was placed for continuous cardiac monitoring. The monitor shows a rate of 92 with sinus rhythm. -ECG: Sinus rhythm rate of 96 Normal axis No PVCs QTc 442 -Laboratory studies:Interpreted by me as stated above in MDM and shown below. Imaging studies: Xrays: As interpreted by me: Portable AP upright 1 view of the chest shows no focal infiltrate CTs show: CT abdomen pelvis showed a likely colitis Procedures:none Critical Care: None Past Med/Surg History Medical History Abnormal chest x-ray Asthma Bronchitis CAD (coronary artery disease) Chronic obstructive pulmonary disease Cirrhosis Cirrhosis of liver not due to alcohol Diverticulitis Esophageal varices hx of banding Fibromyalgia Glaucoma bilt HTN (hypertension) Incarcerated hernia of abdominal cavity Malignant neoplasm of left breast, stage 1, estrogen receptor positive (09/26/17) "Status post bilateral breast reduction in 1998 Status post abnormal left breast mammogram Status post ultrasound core needle biopsy September 26, 2017 Infiltrating carcinoma, grade 2 Estrogen receptor positive, progesterone receptor positive, 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 Status post needle localization lumpectomy and sentinel lymph node biopsy October 16, 2017 Stage pT1c pN0 M0 Status post completion of radiation therapy January 01, 2018. She received 5130 cGy utilizing hypo-fractionation." On 11/19/17 11:17 Blossom Brandt wrote "Status post bilateral breast reduction in 1998 Status post abnormal left breast mammogram Status post ultrasound core needle biopsy September 26, 2017 Infiltrating carcinoma, grade 2 Estrogen receptor positive, progesterone receptor positive, 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 Status post needle localization lumpectomy and sentinel lymph node biopsy October 16, 2017 Stage pT1c pN0 M0 Status post completion of radiation therapy January 01, 2018. She received 5130 centigrade utilizing hypo-fractionation. Migraine Osteoarthritis Paroxysmal atrial tachycardia Rectal vaginal fistula Sinus arrhythmia Thyroid goiter just monitoring for now Surgical History H/O arthroscopy of right knee H/O bilateral breast reduction surgery H/O tooth extraction all teeth removed H/O: hysterectomy History of appendectomy History of bilateral cataract extraction History of bilateral salpingo-oophorectomy (BSO) History of cholecystectomy History of closure of ileostomy 1998---1 month after created History of colonoscopy History of colostomy reversal 1997--8 weeks after colectomy History of ear surgery right ear "doctor broke my ear drum to drain the fluid" History of esophagogastroduodenoscopy (EGD) History of ileostomy 1998 History of incisional hernia repair x8 History of lumpectomy of left breast with lymph node removal History of needle biopsy left breast---malignant History of partial colectomy 1997--diverticuli pocket ruptured @ [facility] History of repair of rectocele History of surgical removal of ganglion cyst right wrist History of tonsillectomy and adenoidectomy History of total right knee replacement x2 Status post correction of deviated nasal septum Status post left foot surgery planter fascitis Status post trigger finger release right thumb Family History Sister Family history of diabetes mellitus Grandfather (Paternal) Family history of diabetes mellitus Family hx of colon cancer Grandfather (Maternal) Family history of diabetes mellitus Family/Other Family history of diabetes mellitus 2 cousins Other No family history of adverse response to anesthesia Social History Smoking Status: Never smoker Second Hand Exposure: Yes ( smoked); Do You Dip or Chew Tobacco: No; Hx Alcohol Use: No Hx Substance Use: No Preferred Language: Ghanaian Communication Ability: Effective Day Light Relief Operator Required: No Beliefs That Will Affect Care: None marital status: Current Living Situation: Spouse current occupational status: retired How many Children do You have: 1 Feels Safe at Home: Yes Assistive Devices: Cane Allergies Allergies Allergy/AdvReac Type Severity Reaction Status Date / Time albuterol Allergy Severe HIVES, Verified 03/22/23 19:18 DIFFICULTY WALKING, SHAKINESS, STUTTERING azithromycin Allergy Severe SHORT OF Verified 03/22/23 19:18 BREATH, PALPITATIONS tramadol Allergy Severe SEE COMMENT Verified 03/22/23 19:18 ibuprofen Allergy Intermediate Hives Verified 03/22/23 19:18 cephalexin AdvReac Severe "HEART Verified 03/22/23 19:18 PALPATIONS" morphine AdvReac Unknown PT STATES Verified 03/22/23 19:18 "BUILT UP A TOLERANCE TO MED, DOESN'T WORK". OPOIDS Allergy Severe DECREASE Uncoded 03/22/23 19:18 RESPIRATIONS--RECEIVED NARCAN Home Meds Home Medications Medication Instructions Recorded Confirmed calcium carbonate 600 mg-vitamin 1 cap PO BID 02/11/18 03/22/23 D3 10 mcg (400 unit) capsule anastrozole 1 mg tablet 1 mg PO QAM 04/11/18 03/22/23 latanoprost 0.005 % eye drops 1 drp OPB HS 04/11/18 03/22/23 montelukast 10 mg tablet 10 mg PO QAM 04/11/18 03/22/23 pantoprazole 40 mg tablet,delayed 40 mg PO DAILYBB 04/11/18 03/22/23 release levalbuterol tartrate 45 1 puff inhalation Q4H PRN Wheezing 11/11/18 03/22/23 mcg/actuation aerosol inhaler milk thistle seed extract 175 mg 175 mg PO QAM 01/21/19 03/22/23 tablet acetaminophen 650 mg 650 mg PO Q8H PRN Pain 07/14/20 03/22/23 tablet,extended release (Tylenol 8 Hour) cyclosporine 0.05 % eye drops in a 1 drp ophthalmic (eye) QAM 12/22/20 03/22/23 dropperette (Restasis) cinnamon bark 500 mg capsule 1,000 mg PO BID 01/20/22 03/22/23 (Cinnamon) fluticasone propionate 110 2 puff inhalation AMPM 01/20/22 03/22/23 mcg/actuation HFA aerosol inhaler garlic 100 mg tablet 1,000 mg PO BID 01/20/22 03/22/23 Previous Rx's Medication Instructions Recorded blood sugar diagnostic (J&J SolutionsTouch #50 ea 07/15/20 Verio test strips) lancets 30 gauge (OneTouch Delica #100 ea 07/15/20 Lancets) guaifenesin 100 mg/5 mL oral 200 mg (10 mL) PO Q6H PRN cough 01/22/22 liquid (Cough Syrup) #473 mL spironolactone 100 mg tablet 100 mg PO QAM #30 tabs 03/04/23 torsemide 20 mg tablet 20 mg PO BID #60 tabs 03/04/23 Results & Data (ED) Vital Signs Vital Signs - 24 hr 03/22/23 17:00 03/22/23 18:59 03/22/23 19:03 Temperature 36.4 C L Temperature Source Temporal Artery Scan Pulse Rate 97 H 98 H Pulse Rate [Bilateral] 96 H Pulse Rate from SpO2 Sensor 100 H Respiratory Rate 19 18 21 Respiratory Effort / Characteristics Non-Labored Respiratory Depth Normal Blood Pressure 113/68 Blood Pressure [Right Arm] 111/75 Blood Pressure Mean 83 Blood Pressure Mean [Right Arm] 87 Pulse Oximetry 98 96 98 Oxygen Delivery Method Room Air Room Air Sepsis Recent Fever Within 48 Hours No Sepsis New/Unexplained Change in Mental Status No Sepsis Action Taken by Nursing No Action Required 03/22/23 19:07 03/22/23 19:40 03/22/23 19:42 Temperature Temperature Source Pulse Rate 97 H 120 H 88 Pulse Rate [Bilateral] Pulse Rate from SpO2 Sensor 87 Respiratory Rate 17 20 Respiratory Effort / Characteristics Respiratory Depth Blood Pressure Blood Pressure [Right Arm] Blood Pressure Mean Blood Pressure Mean [Right Arm] Pulse Oximetry 99 Oxygen Delivery Method Sepsis Recent Fever Within 48 Hours Sepsis New/Unexplained Change in Mental Status Sepsis Action Taken by Nursing 03/22/23 19:42 03/22/23 20:00 03/22/23 20:00 Temperature Temperature Source Pulse Rate 94 H Pulse Rate [Bilateral] Pulse Rate from SpO2 Sensor 92 H Respiratory Rate 21 Respiratory Effort / Characteristics Respiratory Depth Blood Pressure 126/58 L 126/58 L 134/71 Blood Pressure [Right Arm] Blood Pressure Mean 80 80 97 Blood Pressure Mean [Right Arm] Pulse Oximetry 98 Oxygen Delivery Method Sepsis Recent Fever Within 48 Hours Sepsis New/Unexplained Change in Mental Status Sepsis Action Taken by Nursing 03/22/23 21:51 Temperature Temperature Source Pulse Rate Pulse Rate [Bilateral] 86 Pulse Rate from SpO2 Sensor Respiratory Rate 19 Respiratory Effort / Characteristics Respiratory Depth Blood Pressure Blood Pressure [Right Arm] 132/65 Blood Pressure Mean Blood Pressure Mean [Right Arm] 87 Pulse Oximetry 96 Oxygen Delivery Method Room Air Sepsis Recent Fever Within 48 Hours Sepsis New/Unexplained Change in Mental Status Sepsis Action Taken by Nursing Laboratory Data 03/22/23 17:43 03/22/23 19:24 Lab Results 03/22/23 03/22/23 03/22/23 Range/Units 17:43 17:53 19:24 WBC 10.47 (4.8-10.8) K/ul RBC 3.52 L (4.20-5.40) M/uL Hgb 11.6 L (12.0-16.0) g/dl Hct 32.3 L (37.0-47.0) % MCV 91.8 (80.0-100.0) fL MCH 33.0 (25.0-34.0) pg MCHC 35.9 (32.0-36.0) g/dL RDW Std Deviation 49.1 H (36.4-46.3) fL RDW Coeff of Monster 14.6 H (11.5-14.5) % Plt Count 189 (130-400) K/uL MPV 9.4 (9.4-12.4) fL Immature Gran % (Auto) 0.8 % Neut % (Auto) 69.5 % Lymph % (Auto) 13.5 % [place] % (Auto) 15.8 % Eos % (Auto) 0.2 % Baso % (Auto) 0.2 % Neut # (Auto) 7.29 H (1.40-6.50) K/uL Lymph # (Auto) 1.41 (1.20-3.40) K/uL [place] # (Auto) 1.65 H (0.11-0.59) K/uL Eos # (Auto) 0.02 (0.00-0.50) K/uL Baso # (Auto) 0.02 (0.00-0.20) K/uL Immature Gran # (Auto) 0.08 (0.01-0.20) K/uL Sodium 119 L* 119 L* (136-145) mmol/L Potassium 4.5 (3.5-5.1) mmol/L Chloride 86 L (98-107) mmol/L Carbon Dioxide 21 (21-32) mmol/L Anion Gap 12 H (3-11) BUN 31 H (6-23) mg/dl Creatinine 1.25 H (0.6-1.2) mg/dl Est Cr Clr Drug Dosing Not Reportable Est GFR ( Amer) 50.1 ml/min Est GFR (Non-Af Amer) 43.2 ml/min BUN/Creatinine Ratio 24.8 H (10-20) Glucose 90 (70-99(Fasting)) mg/dl Osmolality 261 L (280-300) mOsm/kg Calcium 8.3 L (8.6-10.3) mg/dl Magnesium 2.4 (1.7-2.4) mg/dl Total Bilirubin 1.6 H (0.2-1.0) mg/dl AST 66 H (13-39) U/L ALT 34 (7-52) U/L Alkaline Phosphatase 122 H (34-104) U/L Troponin I High Sens 10.1 (0-14) pg/ml Total Protein 7.4 (6.0-8.3) gm/dl Albumin 3.4 (3.4-5.0) gm/dl Globulin 4.0 (2.5-4.0) gm/dl Albumin/Globulin Ratio 0.9 (0.9-2) Administered Medications Albumin Human (Albumin 25%) 25 gm in 100 mls @ 50 mls/hr IV Q8H WILLOW Stop: 03/25/23 20:29 Last Admin: 03/22/23 21:51 Dose: 50 mls/hr Documented By: LINNEA Discontinued Medications Sodium Chloride (Nss) 500 mls @ 999 mls/hr IV .Q31M ONE Stop: 03/22/23 18:59 Last Infusion: 03/22/23 20:05 Dose: Infused Documented By: Admin: 03/22/23 19:21 Dose: 999 mls/hr Documented By: LINNEA Ioversol (Optiray 320 100ml) 93 ml IV ONCE ONE Stop: 03/22/23 19:34 Last Admin: 03/22/23 19:34 Dose: 93 ml Documented By: TENA Metoclopramide HCl (Metoclopramide Hcl Inj 5 Mg/Ml 2 Ml Vial) 5 mg IV ONE ONE Stop: 03/22/23 20:17 Last Admin: 03/22/23 21:19 Dose: 5 mg Documented By: LINNEA Miscellaneous (Patient's Height &/Or Weight Needed) 1 each N/A Q2H WILLOW Stop: 04/21/23 20:44 Last Admin: 03/22/23 20:52 Dose: 1 each Documented By: LINNEA Ondansetron HCl (Ondansetron 4 Mg Od Tab) 4 mg PO NOW STA Stop: 03/22/23 19:05 Last Admin: 03/22/23 19:22 Dose: Not Given Documented By: LINNEA Ondansetron HCl (Ondansetron Inj 2 Mg/Ml 2 Ml Vial) 4 mg IV NOW STA Stop: 03/22/23 19:05 Last Admin: 03/22/23 19:21 Dose: 4 mg Documented By: LINNEA Imaging Data Radiologist's Impression: Abdomen/Pelvis CT 03/22/23 19:05 Exam(s): CT ABDOMEN + PELVIS With Contrast IV Amt: 93 cc opti 320 EXAM: CT Abdomen and Pelvis With Intravenous Contrast CLINICAL HISTORY: Reason for exam: n/v. TECHNIQUE: Axial computed tomography images of the abdomen and pelvis with intravenous contrast. CTDI is 1679 mGy and DLP is 885.53 mGy-cm. Automated exposure control was utilized for the study. A dose lowering technique was utilized adhering to the principles of ALARA. CONTRAST: Patient received 93 cc opti 320 of IV contrast COMPARISON: No relevant prior studies available. FINDINGS: Lung bases: Unremarkable. No mass. No consolidation. ABDOMEN: Liver: See below. Gallbladder and bile ducts: Cholecystectomy. Hepatic cirrhosis. Abdominal ascites. No ductal dilation. Pancreas: Unremarkable. No mass. No ductal dilation. Spleen: Unremarkable. No splenomegaly. Adrenals: Unremarkable. No mass. Kidneys and ureters: Unremarkable. No solid mass. No hydronephrosis. Stomach and bowel: Mild wall thickening of the stomach, correlate for gastritis. Circumferential wall thickening of the cecum, measuring up to 13 mm in thickness, correlate for colitis. An anastomotic suture line is present in this location, correlate with surgical history. No obstruction. PELVIS: Appendix: No findings to suggest acute appendicitis. Bladder: Unremarkable. No mass. Reproductive: Unremarkable as visualized. ABDOMEN and PELVIS: Intraperitoneal space: See above. Bones/joints: Degenerative changes of the spine. No acute fracture. No dislocation. Soft tissues: Unremarkable. Vasculature: Atherosclerotic changes of the aorta. No abdominal aortic aneurysm. Lymph nodes: Unremarkable. No enlarged lymph nodes. IMPRESSION: 1. Circumferential wall thickening of the cecum, measuring up to 13 mm in thickness, correlate for colitis. An anastomotic suture line is present in this location, correlate with surgical history. 2. Cholecystectomy. Hepatic cirrhosis. Abdominal ascites. Electronically signed by: Zackary Wolf MD 03/22/23 19:59 PM Discharge Plan Visit Data Chief Complaint: Recheck/Abnormal Lab/Rx Stated Complaint: HIGH SODIUM ED Provider: Julio Ferguson Discharge Problem: Acute hyponatremia, Weakness, Vomiting Forms Stand Alone Forms: [facility] Technical Machine Prescriptions Prescriptions: No Action calcium carbonate-vitamin D3 600 mg(1,500mg) -400 unit capsule 1 cap PO BID levalbuterol tartrate 45 mcg/actuation HFA aerosol inhaler 1 puff inhalation Q4H PRN (Reason: Wheezing) acetaminophen [Tylenol 8 Hour] 650 mg Tablet Extended Release 650 mg PO Q8H PRN (Reason: Pain) (DME) OneTouch Verio test strips Strip See Rx Instructions .ROUTE .MEDSUPPLY Qty: 50 0RF Rx Instructions: Check Blood sugar levels once per day as advised (DME) lancets [OneTouch Delica Lancets] 30 gauge misc See Rx Instructions .ROUTE .MEDSUPPLY Qty: 100 0RF Rx Instructions: Check Blood sugar levels once per day as advised latanoprost 0.005 % drops 1 drp OPB HS anastrozole 1 mg tablet 1 mg PO QAM pantoprazole 40 mg tablet,delayed release (DR/EC) 40 mg PO DAILYBB montelukast 10 mg tablet 10 mg PO QAM milk thistle seed extract 175 mg Tablet 175 mg PO QAM cyclosporine [Restasis] 0.05 % Dropperette 1 drp OPHTHALMIC (EYE) QAM spironolactone 100 mg Tablet 100 mg PO QAM Qty: 30 0RF torsemide 20 mg tablet 20 mg PO BID Qty: 60 0RF cinnamon bark [Cinnamon] 500 mg Capsule 1,000 mg PO BID fluticasone propionate 110 mcg/actuation HFA aerosol inhaler 2 puff INHALATION AMPM garlic 100 mg Tablet 1,000 mg PO BID guaifenesin [Cough Syrup] 100 mg/5 mL liquid 200 mg PO Q6H PRN (Reason: cough) Qty: 473 0RF Referrals Referrals: Mark Caal MD [Primary Care Provider] - Discharge Problem: Vomiting Qualifiers: Vomiting type: unspecified Nausea presence: unspecified Qualified Code(s): R 11.10 - Vomiting, unspecified
[2023-03-22] MEDS ORDERED: OPTIRAY 320 100ml IV ONE (19:33)
--- NOTE | 2023-03-22 20:00 | CT Scan Report ---
Exam(s): CT ABDOMEN + PELVIS With Contrast IV Amt: 93 cc opti 320 EXAM: CT Abdomen and Pelvis With Intravenous Contrast CLINICAL HISTORY: Reason for exam: n/v. TECHNIQUE: Axial computed tomography images of the abdomen and pelvis with intravenous contrast. CTDI is 1679 mGy and DLP is 885.53 mGy-cm. Automated exposure control was utilized for the study. A dose lowering technique was utilized adhering to the principles of ALARA. CONTRAST: Patient received 93 cc opti 320 of IV contrast COMPARISON: No relevant prior studies available. FINDINGS: Lung bases: Unremarkable. No mass. No consolidation. ABDOMEN: Liver: See below. Gallbladder and bile ducts: Cholecystectomy. Hepatic cirrhosis. Abdominal ascites. No ductal dilation. Pancreas: Unremarkable. No mass. No ductal dilation. Spleen: Unremarkable. No splenomegaly. Adrenals: Unremarkable. No mass. Kidneys and ureters: Unremarkable. No solid mass. No hydronephrosis. Stomach and bowel: Mild wall thickening of the stomach, correlate for gastritis. Circumferential wall thickening of the cecum, measuring up to 13 mm in thickness, correlate for colitis. An anastomotic suture line is present in this location, correlate with surgical history. No obstruction. PELVIS: Appendix: No findings to suggest acute appendicitis. Bladder: Unremarkable. No mass. Reproductive: Unremarkable as visualized. ABDOMEN and PELVIS: Intraperitoneal space: See above. Bones/joints: Degenerative changes of the spine. No acute fracture. No dislocation. Soft tissues: Unremarkable. Vasculature: Atherosclerotic changes of the aorta. No abdominal aortic aneurysm. Lymph nodes: Unremarkable. No enlarged lymph nodes. IMPRESSION: 1. Circumferential wall thickening of the cecum, measuring up to 13 mm in thickness, correlate for colitis. An anastomotic suture line is present in this location, correlate with surgical history. 2. Cholecystectomy. Hepatic cirrhosis. Abdominal ascites. Electronically signed by: Zackary Wolf MD 03/22/23 19:59 PM
[2023-03-22] MEDS ORDERED: METOCLOPRAMIDE HCL INJ 5 MG/ML 2 ML VIAL IV ONE (20:16)
[2023-03-22 20:22] LABS: Troponin I High Sensitivity 10.1 pg/ml (0-14)
[2023-03-22] MEDS ORDERED: PROMETHAZINE HCL 6.25 MG in SODIUM CHLORIDE 0.9% 50 ML IV PRN (20:26)
[2023-03-22] MEDS ORDERED: oxyCODONE HCL IR 5 MG TAB (IMMEDIATE RELEASE) PO PRN (20:26)
[2023-03-22] MEDS ORDERED: ACETAMINOPHEN 500 MG TAB PO PRN (20:26)
--- NOTE | 2023-03-22 20:28 | History & Physical Report ---
Date of Service March 22, 2023 Assessment & Plan (1) Acute hyponatremia: Plan: Acute on chronic Multifactorial: Persistent postprandial emesis symptoms for a month now, history of C. difficile colitis status post Rx; ? Gastroparesis Home diuretics ARF secondary to illness chronic diastolic heart failure (EF 65%, TTE 2022), equivocal volume status, patient intravascularly dry with some third spacing secondary to NAFLD cirrhosis HTN, stable BP COPD/bronchial asthma as per records, lung status at baseline DM2 diet-controlled, c well-controlled as of recent hemoglobin A1c of 5.2 this month left breast cancer status post surgery/radiation on anastrozole chronic tremors chronic anemia, hemoglobin at baseline chronic thrombocytopenia secondary to cirrhosis Medical telemetry Careful correction of sodium Hold home diuretic for now Recheck sodium after initial fluid bolus given at the ER Hyponatremia work-up Nephrology consult Re: Acute on chronic hyponatremia, history cirrhosis on diuretic Rx GI consult re: postprandial emesis for about a month now, possible gastroparesis ISS BG goal 1 10-1 40, carb count coverage DVT prophylaxis. SCDs Re: Thrombocytopenia Full code Text document was generated using [employer] voice recognition software. It may contain grammatical or spelling errors. Kindly contact undersigned for clarification of any documentation item in question. History of Present Illness Chief Complaint: Abnormal blood work, unable to keep food down, weakness Primary Care Provider: Mark Caal MD History obtained from patient, family, and records. Medical history significant for chronic diastolic heart failure (EF 65%, TTE 2022), HTN, COPD/bronchial asthma as per records, NAFLD cirrhosis, DM2 diet- controlled, chronic hyponatremia, left breast cancer status post surgery/radiation on anastrozole, chronic tremors, chronic anemia (baseline hemoglobin 10), chronic thrombocytopenia. Recent confinement February 27 to 2022 for C. difficile colitis status post vancomycin Rx. Patient has had trouble keeping food down for about a month, onset around time of confinement last month. No actual belly pain. Poor appetite. Symptoms persistent despite completion of medication Rx for C. difficile colitis. No constipation or diarrhea symptoms. No headache symptoms. Denies chest pain, SOB. Some weight loss and decreased fluid retention following compliance with diuretic regimen. Abnormal outpatient lab work from yesterday resulted today. Serum sodium 122, serum creatinine 1.1, serum ammonia 62. Patient directed to ER for evaluation. 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 OPOIDS Allergy Severe DECREASE Uncoded 03/22/23 19:18 RESPIRATIONS--RECEIVED NARCAN Home Medications Medication Instructions Recorded Confirmed Type calcium carbonate 600 mg-vitamin 1 cap PO BID 02/11/18 03/22/23 History D3 10 mcg (400 unit) capsule anastrozole 1 mg tablet 1 mg PO QAM 04/11/18 03/22/23 History latanoprost 0.005 % eye drops 1 drp OPB HS 04/11/18 03/22/23 History montelukast 10 mg tablet 10 mg PO QAM 04/11/18 03/22/23 History pantoprazole 40 mg tablet,delayed 40 mg PO DAILYBB 04/11/18 03/22/23 History release levalbuterol tartrate 45 1 puff inhalation Q4H PRN Wheezing 11/11/18 03/22/23 History mcg/actuation aerosol inhaler milk thistle seed extract 175 mg 175 mg PO QAM 01/21/19 03/22/23 History tablet acetaminophen 650 mg 650 mg PO Q8H PRN Pain 07/14/20 03/22/23 History tablet,extended release (Tylenol 8 Hour) blood sugar diagnostic (OneTouch #50 ea 07/15/20 Rx Verio test strips) lancets 30 gauge (OneTouch Delnatasha #100 ea 07/15/20 Rx Lancets) cyclosporine 0.05 % eye drops in a 1 drp ophthalmic (eye) QAM 12/22/20 03/22/23 History dropperette (Restasis) cinnamon bark 500 mg capsule 1,000 mg PO BID 01/20/22 03/22/23 History (Cinnamon) fluticasone propionate 110 2 puff inhalation AMPM 01/20/22 03/22/23 History mcg/actuation HFA aerosol inhaler garlic 100 mg tablet 1,000 mg PO BID 01/20/22 03/22/23 History guaifenesin 100 mg/5 mL oral 200 mg (10 mL) PO Q6H PRN cough 01/22/22 03/22/23 Rx liquid (Cough Syrup) #473 mL spironolactone 100 mg tablet 100 mg PO QAM #30 tabs 03/04/23 03/22/23 Rx torsemide 20 mg tablet 20 mg PO BID #60 tabs 03/04/23 03/22/23 Rx Past Med/Surg History Medical History Abnormal chest x-ray Asthma Bronchitis CAD (coronary artery disease) Chronic obstructive pulmonary disease Cirrhosis Cirrhosis of liver not due to alcohol Diverticulitis Esophageal varices hx of banding Fibromyalgia Glaucoma bilt HTN (hypertension) Incarcerated hernia of abdominal cavity Malignant neoplasm of left breast, stage 1, estrogen receptor positive (09/26/17) "Status post bilateral breast reduction in 1998 Status post abnormal left breast mammogram Status post ultrasound core needle biopsy September 26, 2017 Infiltrating carcinoma, grade 2 Estrogen receptor positive, progesterone receptor positive, 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 Status post needle localization lumpectomy and sentinel lymph node biopsy October 16, 2017 Stage pT1c pN0 M0 Status post completion of radiation therapy January 01, 2018. She received 5130 cGy utilizing hypo-fractionation." On 11/19/17 11:17 Blossom Brandt wrote "Status post bilateral breast reduction in 1998 Status post abnormal left breast mammogram Status post ultrasound core needle biopsy September 26, 2017 Infiltrating carcinoma, grade 2 Estrogen receptor positive, progesterone receptor positive, 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 Status post needle localization lumpectomy and sentinel lymph node biopsy October 16, 2017 Stage pT1c pN0 M0 Status post completion of radiation therapy January 01, 2018. She received 5130 centigrade utilizing hypo-fractionation. Migraine Osteoarthritis Paroxysmal atrial tachycardia Rectal vaginal fistula Sinus arrhythmia Thyroid goiter just monitoring for now Surgical History H/O arthroscopy of right knee H/O bilateral breast reduction surgery H/O tooth extraction all teeth removed H/O: hysterectomy History of appendectomy History of bilateral cataract extraction History of bilateral salpingo-oophorectomy (BSO) History of cholecystectomy History of closure of ileostomy 1998---1 month after created History of colonoscopy History of colostomy reversal 1997--8 weeks after colectomy History of ear surgery right ear "doctor broke my ear drum to drain the fluid" History of esophagogastroduodenoscopy (EGD) History of ileostomy 1998 History of incisional hernia repair x8 History of lumpectomy of left breast with lymph node removal History of needle biopsy left breast---malignant History of partial colectomy 1997--diverticuli pocket ruptured @ [facility] History of repair of rectocele History of surgical removal of ganglion cyst right wrist History of tonsillectomy and adenoidectomy History of total right knee replacement x2 Status post correction of deviated nasal septum Status post left foot surgery planter fascitis Status post trigger finger release right thumb Family History Sister Family history of diabetes mellitus Grandfather (Paternal) Family history of diabetes mellitus Family hx of colon cancer Grandfather (Maternal) Family history of diabetes mellitus Family/Other Family history of diabetes mellitus 2 cousins Other No family history of adverse response to anesthesia Social History Smoking Status: Never smoker Second Hand Exposure: Yes ( smoked); Do You Dip or Chew Tobacco: No; Hx Alcohol Use: No Hx Substance Use: No Preferred Language: Ivorian Communication Ability: Effective Shaker Out Required: No Beliefs That Will Affect Care: None marital status: Current Living Situation: Alone current occupational status: retired How many Children do You have: 1 Feels Safe at Home: Yes Assistive Devices: Cane Review of Systems 2 Review of Systems: As per HPI, all other systems reviewed and negative Physical Exam Physical Exam: GENERAL: Slightly uncomfortable, chronically ill, no respiratory distress SKIN: Pallor, warm HEENT: Bespectacled, pale palpebral conjunctivae, dry buccal mucosa NECK : Supple, no tenderness CHEST : Decreased breath sounds, no tenderness HEART : RRR, no obvious murmurs ABDOMEN: Some distention, nontender EXTREMITIES : Minimal LE swelling, no LE tenderness, no other conspicuous deformities noted NEUROLOGIC : Coherent, no facial asymmetry, rest tremors, gait and stance not assessed Results & Data Results & Data Vital Signs (Past 12 Hours) Vital Signs Temp Pulse Pulse Resp BP BP Pulse Ox 03/22/23 19:07 97 H 03/22/23 18:59 96 H 18 111/75 96 03/22/23 17:00 36.4 C L 97 H 19 113/68 98 O2 Del Method 03/22/23 19:07 03/22/23 18:59 Room Air 03/22/23 17:00 Room Air Laboratory Results Laboratory Results WBC 10.47 K/ul (4.8-10.8) 03/22/23 17:43 RBC 3.52 M/uL (4.20-5.40) L 03/22/23 17:43 Hgb 11.6 g/dl (12.0-16.0) L 03/22/23 17:43 Hct 32.3 % (37.0-47.0) L 03/22/23 17:43 MCV 91.8 fL (80.0-100.0) 03/22/23 17:43 MCH 33.0 pg (25.0-34.0) 03/22/23 17:43 MCHC 35.9 g/dL (32.0-36.0) 03/22/23 17:43 RDW Std Deviation 49.1 fL (36.4-46.3) H 03/22/23 17:43 RDW Coeff of Monster 14.6 % (11.5-14.5) H 03/22/23 17:43 Plt Count 189 K/uL (130-400) 03/22/23 17:43 MPV 9.4 fL (9.4-12.4) 03/22/23 17:43 Immature Gran % (Auto) 0.8 % 03/22/23 17:43 Neut % (Auto) 69.5 % 03/22/23 17:43 Lymph % (Auto) 13.5 % 03/22/23 17:43 Robertson % (Auto) 15.8 % 03/22/23 17:43 Eos % (Auto) 0.2 % 03/22/23 17:43 Baso % (Auto) 0.2 % 03/22/23 17:43 Neut # (Auto) 7.29 K/uL (1.40-6.50) H 03/22/23 17:43 Lymph # (Auto) 1.41 K/uL (1.20-3.40) 03/22/23 17:43 Robertson # (Auto) 1.65 K/uL (0.11-0.59) H 03/22/23 17:43 Eos # (Auto) 0.02 K/uL (0.00-0.50) 03/22/23 17:43 Baso # (Auto) 0.02 K/uL (0.00-0.20) 03/22/23 17:43 Immature Gran # (Auto) 0.08 K/uL (0.01-0.20) 03/22/23 17:43 Sodium 119 mmol/L (136-145) L* 03/22/23 19:24 Potassium 4.5 mmol/L (3.5-5.1) 03/22/23 17:43 Chloride 86 mmol/L (98-107) L 03/22/23 17:43 Carbon Dioxide 21 mmol/L (21-32) 03/22/23 17:43 Anion Gap 12 (3-11) H 03/22/23 17:43 BUN 31 mg/dl (6-23) H 03/22/23 17:43 Creatinine 1.25 mg/dl (0.6-1.2) H 03/22/23 17:43 Est Cr Clr Drug Dosing Not Reportable 03/22/23 17:43 Est GFR ( Amer) 50.1 ml/min 03/22/23 17:43 Est GFR (Non-Af Amer) 43.2 ml/min 03/22/23 17:43 BUN/Creatinine Ratio 24.8 (10-20) H 03/22/23 17:43 Glucose 90 mg/dl (70-99(Fasting)) 03/22/23 17:43 Osmolality 261 mOsm/kg (280-300) L 03/22/23 17:53 Calcium 8.3 mg/dl (8.6-10.3) L 03/22/23 17:43 Magnesium 2.4 mg/dl (1.7-2.4) 03/22/23 17:43 Total Bilirubin 1.6 mg/dl (0.2-1.0) H 03/22/23 17:43 AST 66 U/L (13-39) H 03/22/23 17:43 ALT 34 U/L (7-52) 03/22/23 17:43 Alkaline Phosphatase 122 U/L (34-104) H 03/22/23 17:43 Troponin I High Sens 10.1 pg/ml (0-14) 03/22/23 19:24 Total Protein 7.4 gm/dl (6.0-8.3) 03/22/23 17:43 Albumin 3.4 gm/dl (3.4-5.0) 03/22/23 17:43 Globulin 4.0 gm/dl (2.5-4.0) 03/22/23 17:43 Albumin/Globulin Ratio 0.9 (0.9-2) 03/22/23 17:43 Impressions Abdomen/Pelvis CT 03/22/23 19:05 Exam(s): CT ABDOMEN + PELVIS With Contrast IV Amt: 93 cc opti 320 EXAM: CT Abdomen and Pelvis With Intravenous Contrast CLINICAL HISTORY: Reason for exam: n/v. TECHNIQUE: Axial computed tomography images of the abdomen and pelvis with intravenous contrast. CTDI is 1679 mGy and DLP is 885.53 mGy-cm. Automated exposure control was utilized for the study. A dose lowering technique was utilized adhering to the principles of ALARA. CONTRAST: Patient received 93 cc opti 320 of IV contrast COMPARISON: No relevant prior studies available. FINDINGS: Lung bases: Unremarkable. No mass. No consolidation. ABDOMEN: Liver: See below. Gallbladder and bile ducts: Cholecystectomy. Hepatic cirrhosis. Abdominal ascites. No ductal dilation. Pancreas: Unremarkable. No mass. No ductal dilation. Spleen: Unremarkable. No splenomegaly. Adrenals: Unremarkable. No mass. Kidneys and ureters: Unremarkable. No solid mass. No hydronephrosis. Stomach and bowel: Mild wall thickening of the stomach, correlate for gastritis. Circumferential wall thickening of the cecum, measuring up to 13 mm in thickness, correlate for colitis. An anastomotic suture line is present in this location, correlate with surgical history. No obstruction. PELVIS: Appendix: No findings to suggest acute appendicitis. Bladder: Unremarkable. No mass. Reproductive: Unremarkable as visualized. ABDOMEN and PELVIS: Intraperitoneal space: See above. Bones/joints: Degenerative changes of the spine. No acute fracture. No dislocation. Soft tissues: Unremarkable. Vasculature: Atherosclerotic changes of the aorta. No abdominal aortic aneurysm. Lymph nodes: Unremarkable. No enlarged lymph nodes. IMPRESSION: 1. Circumferential wall thickening of the cecum, measuring up to 13 mm in thickness, correlate for colitis. An anastomotic suture line is present in this location, correlate with surgical history. 2. Cholecystectomy. Hepatic cirrhosis. Abdominal ascites. Electronically signed by: Zackary Wolf MD 03/22/23 19:59 PM Diagnostic Findings EKG as per my interpretation : Rate 90, NSR, normal axis, T wave abnormalities anteroseptal leads Code Status & VTE Plan VTE Prophylaxis Plan VTE Prophylaxis will be ordered: Yes
[2023-03-22] MEDS ORDERED: ALBUMIN 25% 25 GM/100 ML VIAL IV SCH (20:30)
[2023-03-22] MEDS ORDERED: Patient's HEIGHT &/or WEIGHT Needed SCH (20:45)
[2023-03-22] MEDS ORDERED: CARBOHYDRATES FOR HYPOGLYCEMIA PO PRN (21:41)
[2023-03-22] MEDS ORDERED: GLUCAGON FOR INJ 1 MG VIAL SQ PRN (21:41)
[2023-03-22] MEDS ORDERED: GLUCOSE 10 TAB/TUBE PO PRN (21:41)
[2023-03-22] MEDS ORDERED: DEXTROSE 50% 50 ML SYRINGE IV PRN (21:41)
[2023-03-22] MEDS ORDERED: GLUCOSE 40% GEL 15 GM TUBE PO PRN (21:41)
[2023-03-22 23:04] LABS: Thyroid Stimulating Hormone 2.042 uIu/ml (0.300-4.500)
[2023-03-22] MEDS ORDERED: ARTIFICIAL TEARS OP PRN (23:49)
[2023-03-23 00:09] LABS: Appearance Urine Clear (Clear); Bilirubin Urine Negative (Negative); Blood Urine Negative (Negative); Color Urine Yellow; Glucose Urine UA Negative (Negative); Ketones Urine Trace (Negative); Leukocyte Esterase Urine Negative (Negative); Nitrite Urine Negative (Negative); Protein Urine Negative (Negative); Specific Gravity Urine 1.045 (1.000-1.030); Urobilinogen Urine Negative (Negative)
[2023-03-23] MEDS: INSULIN ASPART PER UNIT CHARGE SC SCH ×5 (00:24→19:33)
[2023-03-23] MEDS: LATANOPROST 0.005% OP SOLN 2.5 ML BTL OPB SCH ×2 (00:24→20:12)
[2023-03-23] MEDS ORDERED: SODIUM CHLORIDE 0.9% 500 ML IV ONE (02:14)
[2023-03-23 05:04] LABS: Albumin Globulin Ratio 1.1 (0.9-2); Albumin Level 3.2 gm/dl (3.4-5.0); BUN Creatinine Ratio 23.4 (10-20); Bilirubin,Total 1.5 mg/dl (0.2-1.0); Calcium 7.6 mg/dl (8.6-10.3); Creatinine Clr Calc Pharmacy 44.3 ml/min; Est GFR (African American) 60.5 ml/min; Est GFR (Non-African American) 52.2 ml/min; Globulin 2.9 gm/dl (2.5-4.0); Potassium 4.5 mmol/L (3.5-5.1); Total Protein 6.1 gm/dl (6.0-8.3)
[2023-03-23 05:08] LABS: Basophils # (auto) 0.01 K/uL (0.00-0.20); Basophils % (auto) 0.1 %; Eosinophils # (auto) 0.04 K/uL (0.00-0.50); Eosinophils % (auto) 0.5 %; Hematocrit (blood only) 24.8 % (37.0-47.0); Hemoglobin 8.7 g/dl (12.0-16.0); Immature Granulocytes # (auto) 0.04 K/uL (0.01-0.20); Immature Granulocytes % (auto) 0.5 %; Lymphocytes # (auto) 1.33 K/uL (1.20-3.40); Mean Corpuscular Hemoglobin 33.2 pg (25.0-34.0); Mean Corpuscular Hgb Conc 35.1 g/dL (32.0-36.0); Mean Corpuscular Volume 94.7 fL (80.0-100.0); Mean Platelet Volume 9.1 fL (9.4-12.4); Monocytes # (auto) 1.66 K/uL (0.11-0.59); Monocytes % (auto) 21.2 %; Neutrophils # (auto) 4.76 K/uL (1.40-6.50); Neutrophils % (auto) 60.7 %; Platelet Count 115 K/uL (130-400); RDW Coefficient of Variation 14.7 % (11.5-14.5); RDW Standard Deviation 50.9 fL (36.4-46.3); Red Blood Count 2.62 M/uL (4.20-5.40); White Blood Count 7.84 K/ul (4.8-10.8)
[2023-03-23] MEDS: FLUTICASONE FUROATE 200MCG 14 PUFFS/INHALER INH SCH ×2 (06:02→22:50)
[2023-03-23] MEDS: ANASTROZOLE 1 MG TAB PO SCH (08:49)
[2023-03-23] MEDS: PANTOprazole 40 MG TAB PO SCH (08:50)
[2023-03-23] MEDS: MONTELUKAST SODIUM 10 MG TABLET PO SCH (08:50)
[2023-03-23] MEDS ORDERED: INFLUENZA VACCINE HIGH-DOSE (HD-IIV4) PF 65+ 0.7mL SYR IM ONE (09:00)
--- NOTE | 2023-03-23 09:07 | Hospitalist Progress Note ---
Date of Service March 23, 2023 Assessment & Plan (1) Acute hyponatremia: Plan Pt is a 73yoM with PMhx significant for chronic diastolic heart failure (EF 65%, TTE 2022), HTN, COPD/bronchial asthma, NAFLD cirrhosis, DM2 diet-controlled, chronic hyponatremia, left breast cancer s/p surgery/radiation on anastrozole, chronic tremors, chronic anemia (baseline hemoglobin 10), chronic thrombocytopenia admitted with acute on chronic hyponatremia. Acute on chronic hyponatremia Sodium of 119 on admission, received IVF Na level slightly improved to 122 Careful correction of sodium Hold home diuretics, continue gentle hydration Nephrology consult- appreciate recs -recheck BMP, consider further IVF at that point, continue with low Na diet Postprandial Emesis Has been ongoing for a month Question of gastroparesis GI consult- appreciate recs -advised to monitor and manage conservatively -Use nausea meds prn -close follow up after discharge with Dr. Elizabeth who follow her in the outpatient clinic. -Can consider outpatient gastric emptying scan if symptoms recur. DOLORES Secondary to illness Cr elevated to 1.25 on admission Improved to normal limits after hydration Chronic diastolic heart failure (EF 65%, TTE 2022) equivocal volume status patient intravascularly dry with some third spacing secondary to NAFLD cirrhosis Holding home diuretics Stable HTN stable BP COPD/bronchial asthma as per records, lung status at baseline DM2 diet-controlled well-controlled as of recent hemoglobin A1c of 5.2 this month ISS left breast cancer status post surgery/radiation on anastrozole chronic tremors Stable chronic anemia hemoglobin at baseline chronic thrombocytopenia secondary to cirrhosis Stable Diet: Low sodium, DMII DVT prophylaxis: SCDs Re: Thrombocytopenia Full code Admission and Anticipated Discharge Date Admission Date: March 22, 2023 Subjective Pt seen in the AM. States that she felt great- had just eaten 2 trays of breakfast- she states that she got 2 trays as a mistake but was able to eat it all. Denies associated N/V. States that she is feeling much better than she has in some time. No acute concerns, states she feels ready to go home. Review of Systems Review of Systems: All systems reviewed & are unremarkable except as noted in Subjective Physical Exam Physical Exam: General: Alert, oriented. No acute distress Skin: No noted rashes or bruises Psych: Appropriate mood and affect Neuro: No gross deficits HEENT: NC/AT Chest: Nontender to palpation. CV: RRR, Normal s1, s2. Resp: Breath sounds clear bilaterally, no increased effort of breathing. Abdomen: Soft, nontender, nondistended. Extremities: No edema in lower extremities bilaterally. Results & Data Results & Data Vital Signs (Past 12 Hours) Vital Signs Temp Pulse Pulse Resp BP BP Pulse Ox 03/23/23 07:50 82 03/23/23 07:33 36.6 C 88 18 116/67 94 03/23/23 03:51 36.8 C 84 20 110/64 95 03/23/23 00:27 03/22/23 23:45 96 H 03/22/23 22:23 94 H 18 119/68 95 03/22/23 21:51 86 19 132/65 96 O2 Del Method 03/23/23 07:50 03/23/23 07:33 Room Air 03/23/23 03:51 Room Air 03/23/23 00:27 Room Air 03/22/23 23:45 03/22/23 22:23 Room Air 03/22/23 21:51 Room Air
--- NOTE | 2023-03-23 09:47 | XRay Report ---
XR chest 1V portable CLINICAL HISTORY: sob TECHNIQUE: Single frontal radiograph of the chest was obtained. Comparison: Comparison is made to chest radiograph 02/21/2023 FINDINGS: No lines and tubes are seen. The cardiomediastinal silhouette is normal. Elevation of the right hemid iaphragm is seen. No evidence of pleural effusion or pneumothorax. IMPRESSION: There is elevation of the right hemidiaphragm. This is unchanged from prior exam. Otherwise no acute abnormalities are seen. ACT 112: Negative or not required by law. Electronically signed by: Jose Landin M.D. 03/23/2023 9:45 AM
--- NOTE | 2023-03-23 11:20 | Gastrointestinal Consultation ---
Date of Consultation March 23, 2023 Assessment & Plan (1) [age] yo female with multiple comorbidities including chronic hyponatremia, recent hospitalization with C diff, NAFLD cirrhosis who was admitted with acute on chronic hyponatremia. Complained of several weeks of nausea after eating and s ome vomiting. Feels great this AM and has been able to eat 2 breakfast trays. Suspect her nausea is multifactorial (recent illness, abx, drop in Na). Would monitor and manage conservatively. OK to use PRN anti-nausea medications. She will have close follow up after discharge with who follow her in the outpatient clinic. Can consider outpatient gastric emptying scan if symptom s recur. Please call with questions. (2) Cirrhosis: (3) Acute hyponatremia: History of Present Illness Reason for Consultation: nausea and vomiting Requesting Physician: medicine Attending Physician: Annmarie Nascimento MD History of Present Illness 73 yo female with recent hospitalization for C diff 02/27-03/04 (treated with oral vanco) as well as a PMH significant for CAD, COPD, h/o breast cancer, DM (diet controlled), NAFLD and cirrhosis with known varices and mild ascites, as well as chronic hyponatremia and anemia of chronic disease. She was admitted after her labs showed a drop in her NA from her baseline. We are asked ot see her for complaints of a month of nausea after eating and poor appetite. Some pccasional vomiting. Today she tells me she feels great. Was able ot eat 2 breakfast trays. She had an EGD within the last year for varices screening. Allergies Allergy/AdvReac Type Severity Reaction Status Date / Time albuterol Allergy Severe HIVES, Verified 03/22/23 19:18 DIFFICULTY WALKING, SHAKINESS, STUTTERING azithromycin Allergy Severe SHORT OF Verified 03/22/23 19:18 BREATH, PALPITATIONS tramadol Allergy Severe SEE COMMENT Verified 03/22/23 19:18 ibuprofen Allergy Intermediate Hives Verified 03/22/23 19:18 cephalexin AdvReac Severe "HEART Verified 03/22/23 19:18 PALPATIONS" morphine AdvReac Unknown PT STATES Verified 03/22/23 19:18 "BUILT UP A TOLERANCE TO MED, DOESN'T WORK". OPOIDS Allergy Severe DECREASE Uncoded 03/22/23 19:18 RESPIRATIONS--RECEIVED NARCAN Home Medications Medication Instructions Recorded Confirmed Type calcium carbonate 600 mg-vitamin 1 cap PO BID 02/11/18 03/22/23 History D3 10 mcg (400 unit) capsule anastrozole 1 mg tablet 1 mg PO QAM 04/11/18 03/22/23 History latanoprost 0.005 % eye drops 1 drp OPB HS 04/11/18 03/22/23 History montelukast 10 mg tablet 10 mg PO QAM 04/11/18 03/22/23 History pantoprazole 40 mg tablet,delayed 40 mg PO DAILYBB 04/11/18 03/22/23 History release levalbuterol tartrate 45 1 puff inhalation Q4H PRN Wheezing 11/11/18 03/22/23 History mcg/actuation aerosol inhaler milk thistle seed extract 175 mg 175 mg PO QAM 01/21/19 03/22/23 History tablet acetaminophen 650 mg 650 mg PO Q8H PRN Pain 07/14/20 03/22/23 History tablet,extended release (Tylenol 8 Hour) blood sugar diagnostic ([employer] #50 ea 07/15/20 Rx Verio test strips) lancets 30 gauge ([employer] Delica #100 ea 07/15/20 Rx Lancets) cyclosporine 0.05 % eye drops in a 1 drp ophthalmic (eye) QAM 12/22/20 03/22/23 History dropperette (Restasis) cinnamon bark 500 mg capsule 1,000 mg PO BID 01/20/22 03/22/23 History (Cinnamon) fluticasone propionate 110 2 puff inhalation AMPM 01/20/22 03/22/23 History mcg/actuation HFA aerosol inhaler garlic 100 mg tablet 1,000 mg PO BID 01/20/22 03/22/23 History guaifenesin 100 mg/5 mL oral 200 mg (10 mL) PO Q6H PRN cough 01/22/22 03/22/23 Rx liquid (Cough Syrup) #473 mL spironolactone 100 mg tablet 100 mg PO QAM #30 tabs 03/04/23 03/22/23 Rx torsemide 20 mg tablet 20 mg PO BID #60 tabs 03/04/23 03/22/23 Rx Patient History Medical History Abnormal chest x-ray Asthma Bronchitis CAD (coronary artery disease) Chronic obstructive pulmonary disease Cirrhosis Cirrhosis of liver not due to alcohol Diverticulitis Esophageal varices hx of banding Fibromyalgia Glaucoma bilt HTN (hypertension) Incarcerated hernia of abdominal cavity Malignant neoplasm of left breast, stage 1, estrogen receptor positive (09/26/17) "Status post bilateral breast reduction in 1998 Status post abnormal left breast mammogram Status post ultrasound core needle biopsy September 26, 2017 Infiltrating carcinoma, grade 2 Estrogen receptor positive, progesterone receptor positive, 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 Status post needle localization lumpectomy and sentinel lymph node biopsy October 16, 2017 Stage pT1c pN0 M0 Status post completion of radiation therapy January 01, 2018. She received 5130 cGy utilizing hypo-fractionation." On 11/19/17 11:17 Blossom Brandt wrote "Status post bilateral breast reduction in 1998 Status post abnormal left breast mammogram Status post ultrasound core needle biopsy September 26, 2017 Infiltrating carcinoma, grade 2 Estrogen receptor positive, progesterone receptor positive, 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 Status post needle localization lumpectomy and sentinel lymph node biopsy October 16, 2017 Stage pT1c pN0 M0 Status post completion of radiation therapy January 01, 2018. She received 5130 centigrade utilizing hypo-fractionation. Migraine Osteoarthritis Paroxysmal atrial tachycardia Rectal vaginal fistula Sinus arrhythmia Thyroid goiter just monitoring for now Surgical History H/O arthroscopy of right knee H/O bilateral breast reduction surgery H/O tooth extraction all teeth removed H/O: hysterectomy History of appendectomy History of bilateral cataract extraction History of bilateral salpingo-oophorectomy (BSO) History of cholecystectomy History of closure of ileostomy 1998---1 month after created History of colonoscopy History of colostomy reversal 1997--8 weeks after colectomy History of ear surgery right ear "doctor broke my ear drum to drain the fluid" History of esophagogastroduodenoscopy (EGD) History of ileostomy 1998 History of incisional hernia repair x8 History of lumpectomy of left breast with lymph node removal History of needle biopsy left breast---malignant History of partial colectomy 1997--diverticuli pocket ruptured @ [facility] History of repair of rectocele History of surgical removal of ganglion cyst right wrist History of tonsillectomy and adenoidectomy History of total right knee replacement x2 Status post correction of deviated nasal septum Status post left foot surgery planter fascitis Status post trigger finger release right thumb Family History Sister Family history of diabetes mellitus Grandfather (Paternal) Family history of diabetes mellitus Family hx of colon cancer Grandfather (Maternal) Family history of diabetes mellitus Family/Other Family history of diabetes mellitus 2 cousins Other No family history of adverse response to anesthesia Social History Smoking Status: Never smoker Second Hand Exposure: Yes ( smoked); Do You Dip or Chew Tobacco: No; Hx Alcohol Use: No Hx Substance Use: No Preferred Language: Estonian Communication Ability: Effective Manager Developmental Required: No Beliefs That Will Affect Care: None marital status: Current Living Situation: Alone current occupational status: retired How many Children do You have: 1 Feels Safe at Home: Yes Assistive Devices: Cane Review of Systems Review of Systems: All systems reviewed & are unremarkable except as noted in HPI & below Physical Exam Constitutional: WD/WN, vitals as above Eyes: PERRL, conjunctivae normal, anicteric sclerae Neck: trachea midline, no thyromegaly Respiratory: normal respiratory effort, lungs clear to auscultation Cardiovascular: RRR, no murmur, no edema Gastrointestinal (Abdomen): normal bowel sounds, soft, nontender, no hepatosplenomegaly Musculoskeletal: no cyanosis or clubbing, extremities motor strength 5/5 Neurologic: CN's II-XI intact bilaterally Results & Data Vital Signs (Past 12 Hours) Vital Signs Temp Pulse Pulse Resp BP Pulse Ox O2 Del Method 03/23/23 07:50 82 03/23/23 07:33 36.6 C 88 18 116/67 94 Room Air 03/23/23 03:51 36.8 C 84 20 110/64 95 Room Air 03/23/23 00:27 Room Air 03/22/23 23:45 96 H Laboratory Results reviewed (1) Vomiting Nausea presence: unspecified Vomiting type: unspecified Qualified Code(s): R11.10 - Vomiting, unspecified
--- NOTE | 2023-03-23 13:48 | Nephrology Consultation ---
Date of Consultation March 23, 2023 Assessment & Plan (1) Chronic hyponatremia: severe worsening of chronic hyponatremia to critical range w/ sodium 132 at 03/04 d/c and 119 on presentation > u [id number], sosms 261, glen 12; not volume overloaded currently -torsemide and spironolactone held -improved some w/ 1.5L IVF -recheck BMP now > consider further IVF at that point; agree w/ low Na diet; for now no FR; appears to have tolerated gentle ivf so far despite liver dysfunction Care coordinated w/ Dr Nascimento (2) Acute renal failure: baseline creatinine 0.6-0.7 presented w/ creatinine 1.1; had IV contrast and was w/ diuretics on board creat stable at 1.1; imaging w/ o acute renal process; UA w/ granular casts suggestive here of ATN no indication for urgent 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 PMH includes HFpEF, HTN, NAFLD cirrhosis, COPD, L breast CA s/p surgery/XRT on anastrazole. admitted here 02/27-03/04 w/ volume overload attributed to her liver disease in the setting of C diff colitis and profound volume overload w/ mild hyponatremia at that time (sNa in low 130s during that stay); her OP lasix had been changed to torsemide just prior to that admission; torsemide was increasted at hospital d/c from 20 >40 mg daily. Pt continues to have trouble eating well for past month, ongoing poor appetite, N, and some post prandial emesis. has had marked generalized weakness just prior to admission which is improved this am. no edema. walked halls this am w/o issues; ate 2 breakfast trays. no morfin, no falls, no sob, no chest pain, no increasing abdominal distension, no new/worrisoem voiding sx. she had iV contrast for CT scan. Also had 1.5L NS and 1 dose of albumin. presenting sodium 119 yesterday 1800; up to 121 this am. Allergies Allergy/AdvReac Type Severity Reaction Status Date / Time albuterol Allergy Severe HIVES, Verified 03/22/23 19:18 DIFFICULTY WALKING, SHAKINESS, STUTTERING azithromycin Allergy Severe SHORT OF Verified 03/22/23 19:18 BREATH, PALPITATIONS tramadol Allergy Severe SEE COMMENT Verified 03/22/23 19:18 ibuprofen Allergy Intermediate Hives Verified 03/22/23 19:18 cephalexin AdvReac Severe "HEART Verified 03/22/23 19:18 PALPATIONS" morphine AdvReac Unknown PT STATES Verified 03/22/23 19:18 "BUILT UP A TOLERANCE TO MED, DOESN'T WORK". OPOIDS Allergy Severe DECREASE Uncoded 03/22/23 19:18 RESPIRATIONS--RECEIVED NARCAN Home Medications Medication Instructions Recorded Confirmed Type calcium carbonate 600 mg-vitamin 1 cap PO BID 02/11/18 03/22/23 History D3 10 mcg (400 unit) capsule anastrozole 1 mg tablet 1 mg PO QAM 04/11/18 03/22/23 History latanoprost 0.005 % eye drops 1 drp OPB HS 04/11/18 03/22/23 History montelukast 10 mg tablet 10 mg PO QAM 04/11/18 03/22/23 History pantoprazole 40 mg tablet,delayed 40 mg PO DAILYBB 04/11/18 03/22/23 History release levalbuterol tartrate 45 1 puff inhalation Q4H PRN Wheezing 11/11/18 03/22/23 History mcg/actuation aerosol inhaler milk thistle seed extract 175 mg 175 mg PO QAM 01/21/19 03/22/23 History tablet acetaminophen 650 mg 650 mg PO Q8H PRN Pain 07/14/20 03/22/23 History tablet,extended release (Tylenol 8 Hour) blood sugar diagnostic ([employer] #50 ea 07/15/20 Rx Verio test strips) lancets 30 gauge ([employer] Delica #100 ea 07/15/20 Rx Lancets) cyclosporine 0.05 % eye drops in a 1 drp ophthalmic (eye) QAM 12/22/20 03/22/23 History dropperette (Restasis) cinnamon bark 500 mg capsule 1,000 mg PO BID 01/20/22 03/22/23 History (Cinnamon) fluticasone propionate 110 2 puff inhalation AMPM 01/20/22 03/22/23 History mcg/actuation HFA aerosol inhaler garlic 100 mg tablet 1,000 mg PO BID 01/20/22 03/22/23 History guaifenesin 100 mg/5 mL oral 200 mg (10 mL) PO Q6H PRN cough 01/22/22 03/22/23 Rx liquid (Cough Syrup) #473 mL spironolactone 100 mg tablet 100 mg PO QAM #30 tabs 03/04/23 03/22/23 Rx torsemide 20 mg tablet 20 mg PO BID #60 tabs 03/04/23 03/22/23 Rx Patient History Medical History Abnormal chest x-ray Asthma Bronchitis CAD (coronary artery disease) Chronic obstructive pulmonary disease Cirrhosis Cirrhosis of liver not due to alcohol Diverticulitis Esophageal varices hx of banding Fibromyalgia Glaucoma bilt HTN (hypertension) Incarcerated hernia of abdominal cavity Malignant neoplasm of left breast, stage 1, estrogen receptor positive (09/26/17) "Status post bilateral breast reduction in 1998 Status post abnormal left breast mammogram Status post ultrasound core needle biopsy September 26, 2017 Infiltrating carcinoma, grade 2 Estrogen receptor positive, progesterone receptor positive, 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 Status post needle localization lumpectomy and sentinel lymph node biopsy October 16, 2017 Stage pT1c pN0 M0 Status post completion of radiation therapy January 01, 2018. She received 5130 cGy utilizing hypo-fractionation." On 11/19/17 11:17 Blossom Brandt wrote "Status post bilateral breast reduction in 1998 Status post abnormal left breast mammogram Status post ultrasound core needle biopsy September 26, 2017 Infiltrating carcinoma, grade 2 Estrogen receptor positive, progesterone receptor positive, 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 Status post needle localization lumpectomy and sentinel lymph node biopsy October 16, 2017 Stage pT1c pN0 M0 Status post completion of radiation therapy January 01, 2018. She received 5130 centigrade utilizing hypo-fractionation. Migraine Osteoarthritis Paroxysmal atrial tachycardia Rectal vaginal fistula Sinus arrhythmia Thyroid goiter just monitoring for now Surgical History H/O arthroscopy of right knee H/O bilateral breast reduction surgery H/O tooth extraction all teeth removed H/O: hysterectomy History of appendectomy History of bilateral cataract extraction History of bilateral salpingo-oophorectomy (BSO) History of cholecystectomy History of closure of ileostomy 1998---1 month after created History of colonoscopy History of colostomy reversal 1997--8 weeks after colectomy History of ear surgery right ear "doctor broke my ear drum to drain the fluid" History of esophagogastroduodenoscopy (EGD) History of ileostomy 1998 History of incisional hernia repair x8 History of lumpectomy of left breast with lymph node removal History of needle biopsy left breast---malignant History of partial colectomy 1997--diverticuli pocket ruptured @ [facility] History of repair of rectocele History of surgical removal of ganglion cyst right wrist History of tonsillectomy and adenoidectomy History of total right knee replacement x2 Status post correction of deviated nasal septum Status post left foot surgery planter fascitis Status post trigger finger release right thumb Family History Sister Family history of diabetes mellitus Grandfather (Paternal) Family history of diabetes mellitus Family hx of colon cancer Grandfather (Maternal) Family history of diabetes mellitus Family/Other Family history of diabetes mellitus 2 cousins Other No family history of adverse response to anesthesia Social History Smoking Status: Never smoker Second Hand Exposure: Yes ( smoked); Do You Dip or Chew Tobacco: No; Hx Alcohol Use: No Hx Substance Use: No Preferred Language: Macanese Communication Ability: Effective Newsagent Required: No Beliefs That Will Affect Care: None marital status: Current Living Situation: Alone current occupational status: retired How many Children do You have: 1 Feels Safe at Home: Yes Assistive Devices: Cane Review of Systems 2 Review of Systems: All systems reviewed & are unremarkable except as noted in HPI & below Physical Exam 2 Constitutional: well developed, well nourished, + frail appearing and cooperative; no acute distress Eyes: EOM intact bilaterally ENMT: Ears: no external ear abnormality Nose: no external nose abnormality Mouth: + dry oral mucous membranes Neck: no nuchal rigidity Respiratory: normal respiratory effort Auscultation: lungs clear to auscultation bilaterally and + diminished lung sounds on RA Cardiovascular: RRR, no murmur, no edema Gastrointestinal (Abdomen): Inspection/Auscultation: normal bowel sounds P ercussion/Palpation: abdomen soft; abdomen nontender and no fluid wave Musculoskeletal: Extremities: strength 5/5 throughout Skin: no rashes, warm and dry Neurologic: martinez, fluent speech, no tremor Psychiatric: Orientation: alert and oriented x 3 Results & Data Vital Signs (Past 12 Hours) Vital Signs Temp Pulse Pulse Resp BP Pulse Ox O2 Del Method 03/23/23 12:12 36.8 C 97 H 18 127/61 92 Room Air 03/23/23 07:50 82 03/23/23 07:33 36.6 C 88 18 116/67 94 Room Air 03/23/23 03:51 36.8 C 84 20 110/64 95 Room Air Laboratory Results 03/23/23 04:18 03/23/23 04:[address] a/p w/ IV 1. Circumferential wall thickening of the cecum, measuring up to 13 mm in thickness, correlate for colitis. An anastomotic suture line is present in this location, correlate with surgical history. 2. Cholecystectomy. Hepatic cirrhosis. Abdominal ascites. (kidneys unremarkable) cxr There is elevation of the right hemidiaphragm. This is unchanged from prior exam. Otherwise no acute abnormalities are seen.
[2023-03-23 15:36] LABS: BUN Creatinine Ratio 20.2 (10-20); Calcium 7.5 mg/dl (8.6-10.3); Creatinine Clr Calc Pharmacy 45.6 ml/min; Est GFR (African American) 62.6 ml/min; Potassium 4.8 mmol/L (3.5-5.1)
[2023-03-23] MEDS ORDERED: SODIUM CHLORIDE 0.9% 500 ML IV SCH (19:00)
[2023-03-24 06:23] LABS: Basophils # (auto) 0.01 K/uL (0.00-0.20); Basophils % (auto) 0.2 %; Eosinophils # (auto) 0.07 K/uL (0.00-0.50); Eosinophils % (auto) 1.5 %; Hematocrit (blood only) 25.8 % (37.0-47.0); Hemoglobin 8.7 g/dl (12.0-16.0); Immature Granulocytes # (auto) 0.02 K/uL (0.01-0.20); Immature Granulocytes % (auto) 0.4 %; Lymphocytes # (auto) 0.68 K/uL (1.20-3.40); Lymphocytes % (auto) 14.7 %; Mean Corpuscular Hemoglobin 32.2 pg (25.0-34.0); Mean Corpuscular Hgb Conc 33.7 g/dL (32.0-36.0); Mean Corpuscular Volume 95.6 fL (80.0-100.0); Mean Platelet Volume 9.4 fL (9.4-12.4); Monocytes # (auto) 0.99 K/uL (0.11-0.59); Monocytes % (auto) 21.3 %; Neutrophils # (auto) 2.87 K/uL (1.40-6.50); Neutrophils % (auto) 61.9 %; Platelet Count 108 K/uL (130-400); RDW Coefficient of Variation 14.7 % (11.5-14.5); RDW Standard Deviation 51.7 fL (36.4-46.3); White Blood Count 4.64 K/ul (4.8-10.8)
[2023-03-24 06:40] LABS: Albumin Globulin Ratio 1.1 (0.9-2); BUN Creatinine Ratio 24.2 (10-20); Bilirubin,Total 1.7 mg/dl (0.2-1.0); Calcium 7.2 mg/dl (8.6-10.3); Creatinine Clr Calc Pharmacy 76.6 ml/min; Est GFR (African American) 105.1 ml/min; Est GFR (Non-African American) 90.7 ml/min; Globulin 2.8 gm/dl (2.5-4.0); Magnesium 2.2 mg/dl (1.7-2.4); Phosphorus 1.6 mg/dl (2.5-4.9); Potassium 4.6 mmol/L (3.5-5.1); Total Protein 5.8 gm/dl (6.0-8.3)
[2023-03-24] MEDS: INSULIN ASPART PER UNIT CHARGE SC SCH ×4 (07:16→21:00)
[2023-03-24] MEDS: PANTOprazole 40 MG TAB PO SCH (08:26)
[2023-03-24] MEDS: MONTELUKAST SODIUM 10 MG TABLET PO SCH (08:26)
[2023-03-24] MEDS: ANASTROZOLE 1 MG TAB PO SCH (08:29)
--- NOTE | 2023-03-24 11:46 | Nephrology Progress Note ---
Date of Service March 24, 2023 Assessment & Plan (1) Chronic hyponatremia: Plan: severe worsening of chronic hyponatremia to critical range w/ sodium 132 at 10/16 d/c and 119 on presentation > u [id number], sosms 261, glen 12; with very slight volume overload today though sodium continues to respond to hydration -torsemide and spironolactone held -improved some w/ 1.5L IVF > further improvement with another 500 mL NS overnight>> we will give another 250 mL normal saline today and likely in a.m. to need to resume fluid limit and diuretics with torsemide at lower dose -Next BMP in a.m. -continue low Na diet Note no fluid limit for now but likely to need to resume Care coordinated w/ Dr Nascimento (2) Disorder of fluid or electrolyte: Plan: today w/ hypophosphatemia, mild hypocalcemia in addition to low Na -encourage po intake > including protein shakes -ordered neutraphos 1 qid and calcium carbonate bid -monitor phos, calcium daily (3) Acute renal failure: Plan: baseline creatinine 0.6-0.7 ; resolved now. presented w/ creatinine 1.1; had IV contrast and was w/ diuretics on board -daily bmp (4) Clostridium difficile colitis: Plan: monitor for sx; not particularly prominent currently clinically (5) Cirrhosis: Plan: hold diuretics; GI aware of pt Admission and Anticipated Discharge Date Admission Date: March 22, 2023 Subjective had 500 mL NS ON w/ further /appropriate Na improvement. other chemistries low as below. Denies shortness of breath or worsening edema. That said she is complaining of increasing tightness which is slightly painful in her legs: She thinks its muscle cramps. Ambulated lap of the floor/unit without difficulty. Denies exertional dyspnea, increasing abdominal girth, orthopnea. Drinking Gatorade Review of Systems 2 Review of Systems: All systems reviewed & are unremarkable except as noted in Subjective Physical Exam 2 Constitutional: well developed, well nourished, + frail appearing and cooperative; no acute distress Eyes: EOM intact bilaterally ENMT: Ears: no external ear abnormality Nose: no external nose abnormality Mouth: + dry oral mucous membranes Neck: no nuchal rigidity Respiratory: normal respiratory effort Auscultation: lungs clear to auscultation bilaterally and + diminished lung sounds Cardiovascular: Rate/Rhythm: regular rate and regular rhythm Extremities: + edema (Trace bilateral ankles; none dependent) Gastrointestinal (Abdomen): Inspection/Auscultation: normal bowel sounds P ercussion/Palpation: abdomen soft; abdomen nontender and no fluid wave Musculoskeletal: Extremities: strength 5/5 throughout Skin: no rashes, warm and dry Psychiatric: Orientation: alert and oriented x 3 Results & Data Vital Signs (Past 12 Hours) Vital Signs Temp Pulse Pulse Resp BP Pulse Ox O2 Del Method 03/24/23 07:32 36.9 C 86 18 134/69 95 Room Air 03/24/23 07:19 81 03/24/23 03:17 36.8 C 82 16 115/67 95 Room Air Laboratory Results 03/24/23 05:18 03/24/23 05:18
--- NOTE | 2023-03-24 12:03 | Hospitalist Progress Note ---
Date of Service March 24, 2023 Assessment & Plan (1) Acute hyponatremia: Plan Pt is a 73yoM with PMhx significant for chronic diastolic heart failure (EF 65%, TTE 2022), HTN, COPD/bronchial asthma, NAFLD cirrhosis, DM2 diet-controlled, chronic hyponatremia, left breast cancer s/p surgery/radiation on anastrozole, chronic tremors, chronic anemia (baseline hemoglobin 10), chronic thrombocytopenia admitted with acute on chronic hyponatremia. Acute on chronic hyponatremia Sodium of 119 on admission, received IVF Na level currently improved to 126 Careful correction of sodium Hold home diuretics, continue gentle hydration Nephrology consult- appreciate recs Electrolyte derangements Hypophosphatemia and hypocalcemia repleted by Nephro Continue to monitor with AM labs Postprandial Emesis Has been ongoing for a month Question of gastroparesis GI consult- appreciate recs -advised to monitor and manage conservatively -Use nausea meds prn -close follow up after discharge with Dr. Elizabeth who follows with her in the outpatient clinic. -Can consider outpatient gastric emptying scan if symptoms recur. DOLORES Secondary to illness Cr elevated to 1.25 on admission Improved to normal limits after hydration Chronic diastolic heart failure (EF 65%, TTE 2022) equivocal volume status patient intravascularly dry with some third spacing secondary to NAFLD cirrhosis Holding home diuretics- appreciate nephrology recs for resuming diuretics in the setting of hyponatremia Stable HTN stable BP COPD/bronchial asthma as per records, lung status at baseline DM2 diet-controlled well-controlled as of recent hemoglobin A1c of 5.2 this month ISS left breast cancer status post surgery/radiation on anastrozole chronic tremors Stable chronic anemia hemoglobin at baseline with noted hemodilution chronic thrombocytopenia secondary to cirrhosis Stable Diet: Low sodium, DMII DVT prophylaxis: SCDs Re: Thrombocytopenia Full code Dispo: PT/OT orders placed Admission and Anticipated Discharge Date Admission Date: March 22, 2023 Subjective Pt seen in the AM. States that she was feeling better. Was eating and drinking and tolerating food well. Denied acute concerns. Review of Systems Review of Systems: All systems reviewed & are unremarkable except as noted in Subjective Physical Exam Physical Exam: General: Alert, oriented. No acute distress Skin: No noted rashes or bruises Psych: Appropriate mood and affect Neuro: No gross deficits HEENT: NC/AT Chest: Nontender to palpation. CV: RRR, Normal s1, s2. Resp: Breath sounds clear bilaterally, no increased effort of breathing. Abdomen: Soft, nontender, nondistended. Extremities: No edema in lower extremities bilaterally. Results & Data Results & Data Vital Signs (Past 12 Hours) Vital Signs Temp Pulse Pulse Resp BP Pulse Ox O2 Del Method 03/24/23 07:32 36.9 C 86 18 134/69 95 Room Air 03/24/23 07:19 81 03/24/23 03:17 36.8 C 82 16 115/67 95 Room Air
[2023-03-24] MEDS: CALCIUM CARBONATE 500 MG CHEWABLE TAB PO SCH ×2 (12:48→20:04)
[2023-03-24] MEDS: POT PHOSPHATE MONOBASIC W/ SOD TAB PO SCH ×3 (12:49→20:04)
[2023-03-24] MEDS ORDERED: SODIUM CHLORIDE 0.9% 250 ML IV ONE (13:48)
--- NOTE | 2023-03-24 17:38 | Electrocardiogram Report ---
Test Reason : Blood Pressure : / mmHG Vent. Rate : 096 BPM Atrial Rate : 096 BPM P-R Int : 122 ms QRS Dur : 070 ms QT Int : 350 ms P-R-T Axes : 024 009 033 degrees QTc Int : 442 ms Normal sinus rhythm Nonspecific ST and T wave abnormality Abnormal ECG When compared with ECG of 27-FEB-2023 16:33, Nonspecific T wave abnormality no longer evident in Inferior leads Confirmed by Peter Gunderson ([id number]) on 03/24/2023 5:37:57 PM Referred By: REFERRED SELF Confirmed By:Peter Gunderson
[2023-03-24] MEDS: LATANOPROST 0.005% OP SOLN 2.5 ML BTL OPB SCH (20:04)
[2023-03-24] MEDS: FLUTICASONE FUROATE 200MCG 14 PUFFS/INHALER INH SCH (20:06)
[2023-03-25 06:43] LABS: Basophils # (auto) 0.01 K/uL (0.00-0.20); Basophils % (auto) 0.2 %; Eosinophils # (auto) 0.06 K/uL (0.00-0.50); Eosinophils % (auto) 1.3 %; Hematocrit (blood only) 24.6 % (37.0-47.0); Hemoglobin 8.7 g/dl (12.0-16.0); Immature Granulocytes # (auto) 0.02 K/uL (0.01-0.20); Immature Granulocytes % (auto) 0.4 %; Lymphocytes % (auto) 17.5 %; Mean Corpuscular Hemoglobin 33.3 pg (25.0-34.0); Mean Corpuscular Hgb Conc 35.4 g/dL (32.0-36.0); Mean Corpuscular Volume 94.3 fL (80.0-100.0); Mean Platelet Volume 9.3 fL (9.4-12.4); Monocytes # (auto) 0.94 K/uL (0.11-0.59); Monocytes % (auto) 20.6 %; Neutrophils # (auto) 2.74 K/uL (1.40-6.50); Platelet Count 97 K/uL (130-400); RDW Coefficient of Variation 14.6 % (11.5-14.5); RDW Standard Deviation 50.4 fL (36.4-46.3); Red Blood Count 2.61 M/uL (4.20-5.40); White Blood Count 4.57 K/ul (4.8-10.8)
[2023-03-25 06:55] LABS: Albumin Globulin Ratio 1.1 (0.9-2); Albumin Level 2.9 gm/dl (3.4-5.0); BUN Creatinine Ratio 19.3 (10-20); Bilirubin,Total 1.3 mg/dl (0.2-1.0); Calcium 7.6 mg/dl (8.6-10.3); Creatinine Clr Calc Pharmacy 55.7 ml/min; Est GFR (African American) 82.2 ml/min; Est GFR (Non-African American) 70.9 ml/min; Globulin 2.6 gm/dl (2.5-4.0); Magnesium 2.1 mg/dl (1.7-2.4); Phosphorus 2.2 mg/dl (2.5-4.9); Potassium 4.6 mmol/L (3.5-5.1); Total Protein 5.5 gm/dl (6.0-8.3)
[2023-03-25] MEDS: INSULIN ASPART PER UNIT CHARGE SC SCH ×4 (07:26→20:35)
[2023-03-25] MEDS: ANASTROZOLE 1 MG TAB PO SCH (08:33)
[2023-03-25] MEDS: PANTOprazole 40 MG TAB PO SCH (08:33)
[2023-03-25] MEDS: POT PHOSPHATE MONOBASIC W/ SOD TAB PO SCH ×4 (08:33→20:28)
[2023-03-25] MEDS: CALCIUM CARBONATE 500 MG CHEWABLE TAB PO SCH ×2 (08:33→20:29)
[2023-03-25] MEDS: MONTELUKAST SODIUM 10 MG TABLET PO SCH (08:33)
--- NOTE | 2023-03-25 10:43 | Nephrology Progress Note ---
Date of Service March 25, 2023 Assessment & Plan Admission and Anticipated Discharge Date Admission Date: March 22, 2023 Subjective Assessment & Plan (1) Chronic hyponatremia: Plan: severe worsening of chronic hyponatremia to critical range w/ sodium 132 at 10/16 d/c and 119 on presentation. etiology is multifactorial. U [id number], sosms 261, glen 12; with very slight volume overload today though sodium continues to respond to hydration. na is now 127 so improving nicely. torsemide and spironolactone held--continue to hold for now improved some w/ 1.5L IVF > further improvement with another 500 mL NS overnight>> we will give another 250 mL normal saline today and likely in a.m. to need to resume fluid limit and diuretics with torsemide at lower dose Add FFR 1500 ml per day. Would like to observe for 1 more day to make sure electrolytes are all in appropriate direction Final diuretics advice at discharge (2) Disorder of fluid or electrolyte: Plan: today w/ hypophosphatemia, mild hypocalcemia in addition to low Na -encourage po intake > including protein shakes -monitor phos, calcium daily Phos low but rising so continue neutraphos 1 qid and calcium carbonate bid Subjective feels fine. No SOb, Nausea and denies any Symptoms. wants to go home Review of Systems Review of Systems: All systems reviewed & are unremarkable except as noted in Subjective Physical Exam Constitutional: well developed, well nourished, + frail appearing and cooperative; no acute distress Eyes: EOM intact bilaterally ENMT: Ears: no external ear abnormality Nose: no external nose abnormality Mouth: + dry oral mucous membranes Neck: no nuchal rigidity Respiratory: normal respiratory effort Auscultation: lungs clear to auscultation bilaterally and + diminished lung sounds Cardiovascular: Rate/Rhythm: regular rate and regular rhythm Extremities: + edema (Trace bilateral ankles; none dependent) Gastrointestinal (Abdomen): Inspection/Auscultation: normal bowel sounds Percussion/Palpation: abdomen soft; abdomen nontender and no fluid wave Musculoskeletal: Extremities: strength 5/5 throughout Skin: no rashes, warm and dry Psychiatric: Orientation: alert and oriented x 3 Results & Data Vital Signs (Past 12 Hours) Vital Signs Temp Pulse Pulse Resp BP Pulse Ox O2 Del Method 03/25/23 09:10 86 03/25/23 07:21 36.6 C 84 18 119/69 97 Room Air 03/25/23 02:55 35.3 C L 99 H 14 98/57 L 97 Room Air 03/24/23 23:00 93 H 03/24/23 22:59 37.3 C 99 H 15 115/70 95 Room Air
[2023-03-25] MEDS ORDERED: LACTULOSE SYRUP 30 GM/45 ML UDP PO PRN (18:17)
--- NOTE | 2023-03-25 18:17 | Hospitalist Progress Note ---
Date of Service March 25, 2023 Assessment & Plan (1) Acute hyponatremia: Plan Pt is a 73yoM with PMhx significant for chronic diastolic heart failure (EF 65%, TTE 2022), HTN, COPD/bronchial asthma, NAFLD cirrhosis, DM2 diet-controlled, chronic hyponatremia, left breast cancer s/p surgery/radiation on anastrozole, chronic tremors, chronic anemia (baseline hemoglobin 10), chronic thrombocytopenia admitted with acute on chronic hyponatremia. Acute on chronic hyponatremia-likely secondary to cirrhosis Sodium of 119 on admission, received IVF Na level currently improved to 126 Careful correction of sodium Hold home diuretics, continue gentle hydration Nephrology consult- appreciate recs Has been getting more intravenous fluid as per customer support executive We will monitor PRP Electrolyte derangements Hypophosphatemia and hypocalcemia repleted by Nephro Phosphorus remains mildly low at 2.2 Has been getting supplement Postprandial Emesis Has been ongoing for a month Question of gastroparesis GI consult- appreciate recs -advised to monitor and manage conservatively -Use nausea meds prn -close follow up after discharge with Dr. Elizabeth who follows with her in the outpatient clinic. -Can consider outpatient gastric emptying scan if symptoms recur. We will need to continue with lactulose with a history of increasing ammonia as an outpatient with change in mental status DOLORES Secondary to illness Cr elevated to 1.25 on admission Improved to normal limits after hydration Kidney function has improved Chronic diastolic heart failure (EF 65%, TTE 2022) equivocal volume status patient intravascularly dry with some third spacing secondary to NAFLD cirrhosis Holding home diuretics- appreciate nephrology recs for resuming diuretics in the setting of hyponatremia Stable-no acute symptoms HTN stable BP COPD/bronchial asthma as per records, lung status at baseline DM2 diet-controlled well-controlled as of recent hemoglobin A1c of 5.2 this month ISS left breast cancer status post surgery/radiation on anastrozole chronic tremors Stable chronic anemia hemoglobin at baseline with noted hemodilution chronic thrombocytopenia secondary to cirrhosis Stable Diet: Low sodium, DMII DVT prophylaxis: SCDs Re: Thrombocytopenia Full code Dispo: PT/OT orders placed Admission and Anticipated Discharge Date Admission Date: March 22, 2023 Subjective 03/25/2023 The patient was seen and examined in telemetry unit She remains stable and has been eating and drinking normally Denies any significant symptoms but her sodium remains low at 127 Review of Systems Review of Systems: All systems reviewed and are unremarkable except as noted below Physical Exam Physical Exam: Lying in bed comfortably Constitutional: well developed, well nourished and + obese; not ill appearing Eyes: PERRL, conjunctivae normal, anicteric sclerae ENMT: external ear and nose normal, oropharynx normal Neck: trachea midline, no thyromegaly Respiratory: no respiratory distress Auscultation: + diminished lung sounds and + crackles (Minimal crackles at the bases) Cardiovascular: Rate/Rhythm: regular rate and regular rhythm; not tachycardic Heart Sounds: normal S1 and normal S2; no murmur Extremities: + edema (1+ edema bilaterally) Gastrointestinal (Abdomen): Inspection/Auscultation: + abdomen distended and normal bowel sounds Percussion/Palpation: abdomen soft; abdomen nontender Musculoskeletal: No acute arthritis involving any of the joint Neurologic: Alert, awake and oriented x3. Generally weak but no focal sensory or no motor deficit appreciated Results & Data Results & Data Vital Signs (Past 12 Hours) Vital Signs Temp Pulse Pulse Resp BP Pulse Ox O2 Del Method 03/25/23 16:05 36.9 C 97 H 18 114/70 97 Room Air 03/25/23 15:54 95 H 03/25/23 11:13 37.1 C 94 H 18 108/67 97 Room Air 03/25/23 09:10 86 03/25/23 07:21 36.6 C 84 18 119/69 97 Room Air Laboratory Results Short CBC 03/25/23 Range/Units 06:16 WBC 4.57 L (4.8-10.8) K/ul Hgb 8.7 L (12.0-16.0) g/dl Hct 24.6 L (37.0-47.0) % Plt Count 97 L (130-400) K/uL BMP 03/25/23 06:16 Sodium 127 L Potassium 4.6 Chloride 99 Carbon Dioxide 23 BUN 16 Creatinine 0.83 Glucose 97 Calcium 7.6 L Liver Function 03/25/23 Range/Units 06:16 Total Bilirubin 1.3 H (0.2-1.0) mg/dl AST 47 H (13-39) U/L ALT 23 (7-52) U/L Alkaline Phosphatase 86 (34-104) U/L Albumin 2.9 L (3.4-5.0) gm/dl Medications Administered Current Inpatient Medications Acetaminophen (Acetaminophen 500 Mg Tab) 500 mg PO Q6H PRN PRN Reason: fever/pain Stop: 04/21/23 20:25 Anastrozole (Anastrozole 1 Mg Tab) 1 mg PO QAM [facility] Stop: 04/22/23 08:59 Last Admin: 03/25/23 08:33 Dose: Not Given Artificial Tears (Artificial Tears) 1 drops OP QID PRN PRN Reason: Dryness Stop: 04/21/23 23:48 Calcium Carbonate (Calcium Carbonate 500 Mg Chewable Tab) 500 mg PO BID [facility] Stop: 04/23/23 11:59 Last Admin: 03/25/23 08:33 Dose: 500 mg Dextrose (Dextrose 50% 50 Ml Syringe) 25 - 50 ml IV UD PRN; Protocol PRN Reason: Hypoglycemia Protocol Stop: 04/21/23 21:40 Fluticasone Furoate (Fluticasone Furoate 200mcg 14 Puffs/Inhaler) 1 puffs INH HS [facility] Stop: 04/21/23 23:47 Last Admin: 03/24/23 20:06 Dose: 1 puffs Glucagon (Glucagon For Inj 1 Mg Vial) 1 mg SQ UD PRN; Protocol PRN Reason: Hypoglycemia Protocol Stop: 04/21/23 21:40 Glucose (Glucose 10 Tab/Tube) 4 - 8 tab PO UD PRN; Protocol PRN Reason: Hypoglycemia Treatment Stop: 04/21/23 21:40 Glucose (Glucose 40% Gel 15 Gm Tube) 15 - 30 gm PO UD PRN; Protocol PRN Reason: Hypoglycemia Protocol Stop: 04/21/23 21:40 Promethazine HCl 6.25 mg/ (Sodium Chloride) 50.25 mls @ 201 mls/hr IV Q6H PRN PRN Reason: Nausea And Vomiting Stop: 04/21/23 20:25 Insulin Aspart (Insulin Aspart Per Unit Charge) 0 units SC ACHS [facility] Stop: 04/21/23 22:59 Last Admin: 03/25/23 15:26 Dose: Not Given Latanoprost (Latanoprost 0.005% Op Soln 2.5 Ml Btl) 1 drops OPB HS [facility] Stop: 04/21/23 23:39 Last Admin: 03/24/23 20:04 Dose: 1 drops Miscellaneous (Carbohydrates For Hypoglycemia ) 15 - 30 gm PO UD PRN PRN Reason: Hypoglycemia Protocol Stop: 04/21/23 21:40 Montelukast Sodium (Montelukast Sodium 10 Mg Tablet) 10 mg PO QAM [facility] Stop: 04/22/23 08:59 Last Admin: 03/25/23 08:33 Dose: 10 mg Pantoprazole Sodium (Pantoprazole 40 Mg Tab) 40 mg PO DAILY [facility] Stop: 04/22/23 08:59 Last Admin: 03/25/23 08:33 Dose: 40 mg Potassium Phosphate (Pot Phosphate Monobasic W/ Sod Tab) 1 tab PO QID [facility] Stop: 04/23/23 12:59 Last Admin: 03/25/23 17:06 Dose: 1 tab
[2023-03-25] MEDS: LATANOPROST 0.005% OP SOLN 2.5 ML BTL OPB SCH (20:28)
[2023-03-25] MEDS: FLUTICASONE FUROATE 200MCG 14 PUFFS/INHALER INH SCH (20:28)
[2023-03-26 05:15] LABS: Basophils # (auto) 0.02 K/uL (0.00-0.20); Basophils % (auto) 0.5 %; Eosinophils # (auto) 0.06 K/uL (0.00-0.50); Eosinophils % (auto) 1.4 %; Hematocrit (blood only) 25.1 % (37.0-47.0); Hemoglobin 8.5 g/dl (12.0-16.0); Immature Granulocytes # (auto) 0.03 K/uL (0.01-0.20); Immature Granulocytes % (auto) 0.7 %; Lymphocytes # (auto) 0.72 K/uL (1.20-3.40); Lymphocytes % (auto) 17.4 %; Mean Corpuscular Hemoglobin 32.6 pg (25.0-34.0); Mean Corpuscular Hgb Conc 33.9 g/dL (32.0-36.0); Mean Corpuscular Volume 96.2 fL (80.0-100.0); Mean Platelet Volume 9.4 fL (9.4-12.4); Monocytes # (auto) 0.92 K/uL (0.11-0.59); Monocytes % (auto) 22.2 %; Neutrophils # (auto) 2.39 K/uL (1.40-6.50); Neutrophils % (auto) 57.8 %; Platelet Count 88 K/uL (130-400); RDW Coefficient of Variation 14.7 % (11.5-14.5); RDW Standard Deviation 51.6 fL (36.4-46.3); Red Blood Count 2.61 M/uL (4.20-5.40); White Blood Count 4.14 K/ul (4.8-10.8)
[2023-03-26 05:33] LABS: Albumin Globulin Ratio 1.1 (0.9-2); Albumin Level 2.8 gm/dl (3.4-5.0); BUN Creatinine Ratio 22.7 (10-20); Bilirubin,Total 1.5 mg/dl (0.2-1.0); Calcium 7.8 mg/dl (8.6-10.3); Creatinine Clr Calc Pharmacy 61.7 ml/min; Est GFR (African American) 92.9 ml/min; Est GFR (Non-African American) 80.2 ml/min; Globulin 2.6 gm/dl (2.5-4.0); Magnesium 2.1 mg/dl (1.7-2.4); Phosphorus 2.9 mg/dl (2.5-4.9); Potassium 4.5 mmol/L (3.5-5.1); Total Protein 5.4 gm/dl (6.0-8.3)
[2023-03-26] MEDS: INSULIN ASPART PER UNIT CHARGE SC SCH ×2 (08:52→12:25)
[2023-03-26] MEDS: ANASTROZOLE 1 MG TAB PO SCH (08:53)
[2023-03-26] MEDS: CALCIUM CARBONATE 500 MG CHEWABLE TAB PO SCH (08:54)
[2023-03-26] MEDS: MONTELUKAST SODIUM 10 MG TABLET PO SCH (08:54)
[2023-03-26] MEDS: POT PHOSPHATE MONOBASIC W/ SOD TAB PO SCH (08:54)
[2023-03-26] MEDS: PANTOprazole 40 MG TAB PO SCH (08:54)
--- NOTE | 2023-03-26 10:47 | Dialysis Progress Note ---
Date of Service March 26, 2023 Assessment & Plan Admission and Anticipated Discharge Date Admission Date: March 22, 2023 Subjective Assessment & Plan (1) Chronic hyponatremia: Plan: severe worsening of chronic hyponatremia to critical range w/ sodium 132 at 10/16 d/c and 119 on presentation. etiology is multifactorial. U [id number], sosms 261, glen 12; with very slight volume overload today though sodium continues to respond to hydration. na is now 127 and stable. Add FFR 1500 ml per day. Can be discharged. restart torsemide but not Aldactone. Continue neutraphos 1 bid and calcium carbonate bid (2) Disorder of fluid or electrolyte: Plan: today w/ hypophosphatemia, mild hypocalcemia in addition to low Na -encourage po intake > including protein shakes -monitor phos, calcium daily Phos low but rising so continue neutraphos 1 bid and calcium carbonate bid Subjective feels fine. No SOb, Nausea and denies any Symptoms. wants to go home Review of Systems Review of Systems: All systems reviewed & are unremarkable except as noted in Subjective Physical Exam Constitutional: well developed, well nourished, + frail appearing and cooperative; no acute distress Eyes: EOM intact bilaterally ENMT: Ears: no external ear abnormality Nose: no external nose abnormality Mouth: + dry oral mucous membranes Neck: no nuchal rigidity Respiratory: normal respiratory effort Auscultation: lungs clear to auscultation bilaterally and + diminished lung sounds Cardiovascular: Rate/Rhythm: regular rate and regular rhythm Extremities: + edema (Trace bilateral ankles; none dependent) Gastrointestinal (Abdomen): Inspection/Auscultation: normal bowel sounds Percussion/Palpation: abdomen soft; abdomen nontender and no fluid wave Musculoskeletal: Extremities: strength 5/5 throughout Skin: no rashes, warm and dry Psychiatric: Orientation: alert and oriented x 3 Results & Data Vital Signs (Past 12 Hours) Vital Signs Temp Pulse Resp BP Pulse Ox O2 Del Method 03/26/23 07:15 36.8 C 82 18 110/65 96 Room Air 03/26/23 03:54 36.9 C 89 18 108/61 95 Room Air 03/26/23 00:23 Room Air 03/25/23 23:07 36.6 C 100 H 18 113/71 97 Room Air
--- NOTE | 2023-03-26 12:49 | Hospitalist Progress Note ---
Date of Service March 26, 2023 Assessment & Plan (1) Acute hyponatremia: Plan Pt is a 73yoM with PMhx significant for chronic diastolic heart failure (EF 65%, TTE 2022), HTN, COPD/bronchial asthma, NAFLD cirrhosis, DM2 diet-controlled, chronic hyponatremia, left breast cancer s/p surgery/radiation on anastrozole, chronic tremors, chronic anemia (baseline hemoglobin 10), chronic thrombocytopenia admitted with acute on chronic hyponatremia. Acute on chronic hyponatremia-likely secondary to cirrhosis Sodium of 119 on admission, received IVF Na level currently improved to 126 Careful correction of sodium Hold home diuretics, continue gentle hydration Nephrology consult- appreciate recs Has been getting more intravenous fluid as per quill cleaning machine operator Sodium level remains low at 127 without any acute symptoms Appreciate nephrology input and recommendation that she can be discharged today Denies any other significant symptoms and she will be discharged home this afternoon Electrolyte derangements Hypophosphatemia and hypocalcemia repleted by Nephro Phosphorus remains mildly low at 2.2 Has been getting supplement Sodium remains low otherwise electrolytes are normalized Postprandial Emesis Has been ongoing for a month Question of gastroparesis GI consult- appreciate recs -advised to monitor and manage conservatively -Use nausea meds prn -close follow up after discharge with Dr. Elizabeth who follows with her in the outpatient clinic. -Can consider outpatient gastric emptying scan if symptoms recur. We will need to continue with lactulose with a history of increasing ammonia as an outpatient with change in mental status No more nausea and or vomiting DOLORES Secondary to illness Cr elevated to 1.25 on admission Improved to normal limits after hydration Kidney function has improved and is normalized Chronic diastolic heart failure (EF 65%, TTE 2022) equivocal volume status patient intravascularly dry with some third spacing secondary to NAFLD cirrhosis Holding home diuretics- appreciate nephrology recs for resuming diuretics in the setting of hyponatremia Stable-no acute symptoms HTN stable BP COPD/bronchial asthma as per records, lung status at baseline DM2 diet-controlled well-controlled as of recent hemoglobin A1c of 5.2 this month ISS left breast cancer status post surgery/radiation on anastrozole chronic tremors Stable chronic anemia hemoglobin at baseline with noted hemodilution chronic thrombocytopenia secondary to cirrhosis Stable Diet: Low sodium, DMII DVT prophylaxis: SCDs Re: Thrombocytopenia Full code Dispo: PT/OT orders placed Has had PT and OT evaluation and recommended home Admission and Anticipated Discharge Date Admission Date: March 22, 2023 Subjective 03/25/2023 The patient was seen and examined in telemetry unit She remains stable and has been eating and drinking normally Denies any significant symptoms but her sodium remains low at 127 03/26/2023 The patient was seen and examined in telemetry unit She has been feeling much better and has had physical therapy and recommended home Denies any acute symptoms Bowel has been moving normally and no signs and or symptoms of encephalopathy Review of Systems Review of Systems: All systems reviewed and are unremarkable except as noted below Physical Exam Physical Exam: Lying in bed comfortably Constitutional: well developed, well nourished and + obese; not ill appearing Eyes: PERRL, conjunctivae normal, anicteric sclerae ENMT: external ear and nose normal, oropharynx normal Neck: trachea midline, no thyromegaly Respiratory: no respiratory distress Auscultation: + diminished lung sounds and + crackles (Minimal crackles at the bases) Cardiovascular: Rate/Rhythm: regular rate and regular rhythm; not tachycardic Heart Sounds: normal S1 and normal S2; no murmur Extremities: + edema (1+ edema bilaterally) Gastrointestinal (Abdomen): Inspection/Auscultation: + abdomen distended and normal bowel sounds Percussion/Palpation: abdomen soft; abdomen nontender Musculoskeletal: No acute arthritis involving any of the joint Neurologic: normal touch/pain/proprioception and moves all extremities; no focal motor deficits and not confused Psychiatric: A+Ox3, euthymic affect Lymphatic: no cervical or axillary lymphadenopathy Results & Data Results & Data Vital Signs (Past 12 Hours) Vital Signs Temp Pulse Resp BP Pulse Ox O2 Del Method 03/26/23 11:17 36.9 C 101 H 18 134/75 96 Room Air 03/26/23 07:15 36.8 C 82 18 110/65 96 Room Air 03/26/23 03:54 36.9 C 89 18 108/61 95 Room Air Laboratory Results Short CBC 03/26/23 Range/Units 04:52 WBC 4.14 L (4.8-10.8) K/ul Hgb 8.5 L (12.0-16.0) g/dl Hct 25.1 L (37.0-47.0) % Plt Count 88 L (130-400) K/uL BMP 03/26/23 04:52 Sodium 127 L Potassium 4.5 Chloride 98 Carbon Dioxide 24 BUN 17 Creatinine 0.75 Glucose 87 Calcium 7.8 L Liver Function 03/26/23 Range/Units 04:52 Total Bilirubin 1.5 H (0.2-1.0) mg/dl AST 46 H (13-39) U/L ALT 23 (7-52) U/L Alkaline Phosphatase 83 (34-104) U/L Albumin 2.8 L (3.4-5.0) gm/dl Medications Administered Current Inpatient Medications Acetaminophen (Acetaminophen 500 Mg Tab) 500 mg PO Q6H PRN PRN Reason: fever/pain Stop: 04/21/23 20:25 Anastrozole (Anastrozole 1 Mg Tab) 1 mg PO QAM [facility] Stop: 04/22/23 08:59 Last Admin: 03/26/23 08:53 Dose: Not Given Artificial Tears (Artificial Tears) 1 drops OP QID PRN PRN Reason: Dryness Stop: 04/21/23 23:48 Calcium Carbonate (Calcium Carbonate 500 Mg Chewable Tab) 500 mg PO BID [facility] Stop: 04/23/23 11:59 Last Admin: 03/26/23 08:54 Dose: 500 mg Dextrose (Dextrose 50% 50 Ml Syringe) 25 - 50 ml IV UD PRN; Protocol PRN Reason: Hypoglycemia Protocol Stop: 04/21/23 21:40 Fluticasone Furoate (Fluticasone Furoate 200mcg 14 Puffs/Inhaler) 1 puffs INH HS [facility] Stop: 04/21/23 23:47 Last Admin: 03/25/23 20:28 Dose: 1 puffs Glucagon (Glucagon For Inj 1 Mg Vial) 1 mg SQ UD PRN; Protocol PRN Reason: Hypoglycemia Protocol Stop: 04/21/23 21:40 Glucose (Glucose 10 Tab/Tube) 4 - 8 tab PO UD PRN; Protocol PRN Reason: Hypoglycemia Treatment Stop: 04/21/23 21:40 Glucose (Glucose 40% Gel 15 Gm Tube) 15 - 30 gm PO UD PRN; Protocol PRN Reason: Hypoglycemia Protocol Stop: 04/21/23 21:40 Promethazine HCl 6.25 mg/ (Sodium Chloride) 50.25 mls @ 201 mls/hr IV Q6H PRN PRN Reason: Nausea And Vomiting Stop: 04/21/23 20:25 Insulin Aspart (Insulin Aspart Per Unit Charge) 0 units SC ACHS [facility] Stop: 04/21/23 22:59 Last Admin: 03/26/23 12:25 Dose: Not Given Lactulose (Lactulose Syrup 30 Gm/45 Ml Udp) 30 gm PO DAILY PRN PRN Reason: Constipation Stop: 04/25/23 08:59 Last Admin: 03/26/23 08:56 Dose: 30 gm Latanoprost (Latanoprost 0.005% Op Soln 2.5 Ml Btl) 1 drops OPB HS [facility] Stop: 04/21/23 23:39 Last Admin: 03/25/23 20:28 Dose: 1 drops Miscellaneous (Carbohydrates For Hypoglycemia ) 15 - 30 gm PO UD PRN PRN Reason: Hypoglycemia Protocol Stop: 04/21/23 21:40 Montelukast Sodium (Montelukast Sodium 10 Mg Tablet) 10 mg PO QAM [facility] Stop: 04/22/23 08:59 Last Admin: 03/26/23 08:54 Dose: 10 mg Pantoprazole Sodium (Pantoprazole 40 Mg Tab) 40 mg PO DAILY [facility] Stop: 04/22/23 08:59 Last Admin: 03/26/23 08:54 Dose: 40 mg Potassium Phosphate (Pot Phosphate Monobasic W/ Sod Tab) 1 tab PO BID [facility] Stop: 04/25/23 20:59
[2023-03-26] MEDS ORDERED: POT PHOSPHATE MONOBASIC W/ SOD TAB PO SCH (21:00)
--- NOTE | 2023-03-27 08:24 | Discharge Summary ---
Date of Service March 28, 2023 Admission HPI Per Admitting Provider History obtained from patient, family, and records. Medical history significant for chronic diastolic heart failure (EF 65%, TTE 2022), HTN, COPD/bronchial asthma as per records, NAFLD cirrhosis, DM2 diet-controlled, chronic hyponatremia, left breast cancer status post surgery/radiation on anastrozole, chronic tremors, chronic anemia (baseline hemoglobin 10), chronic thrombocytopenia. Recent confinement February 27 to 2022 for C. difficile colitis status post vancomycin Rx. Patient has had trouble keeping food down for about a month, onset around time of confinement last month. No actual belly pain. Poor appetite. Symptoms persistent despite completion of medication Rx for C. difficile colitis. No constipation or diarrhea symptoms. No headache symptoms. Denies chest pain, SOB. Some weight loss and decreased fluid retention following compliance with diuretic regimen. Abnormal outpatient lab work from yesterday resulted today. Serum sodium 122, serum creatinine 1.1, serum ammonia 62. Patient directed to ER for evaluation. 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 Admission Exam Per Admitting Provider Physical Exam: GENERAL: Slightly uncomfortable, chronically ill, no respiratory distress SKIN: Pallor, warm HEENT: Bespectacled, pale palpebral conjunctivae, dry buccal mucosa NECK : Supple, no tenderness CHEST : Decreased breath sounds, no tenderness HEART : RRR, no obvious murmurs ABDOMEN: Some distention, nontender EXTREMITIES : Minimal LE swelling, no LE tenderness, no other conspicuous deformities noted NEUROLOGIC : Coherent, no facial asymmetry, rest tremors, gait and stance not assessed Principal Diagnosis Acute hyponatremia, electrolyte imbalance, chronic diastolic heart failure, NAFLD cirrhosis, type 2 diabetes Discharge Exam Lying in bed comfortably Constitutional well developed, well nourished and + obese; not ill appearing Eyes PERRL, conjunctivae normal, anicteric sclerae ENMT external ear and nose normal, oropharynx normal Neck trachea midline, no thyromegaly Respiratory no respiratory distress Auscultation: + diminished lung sounds and + crackles (Minimal crackles at the bases) Cardiovascular Rate/Rhythm: regular rate and regular rhythm; not tachycardic Heart Sounds: normal S1 and normal S2; no murmur Extremities: + edema (1+ edema bilaterally) Gastrointestinal (Abdomen) Inspection/Auscultation: + abdomen distended and normal bowel sounds Percussion/Palpation: abdomen soft; abdomen nontender Neurologic normal touch/pain/proprioception and moves all extremities; no focal motor deficits and not confused Psychiatric A+Ox3, euthymic affect Lymphatic no cervical or axillary lymphadenopathy Discharge Data Allergies Allergy/AdvReac Type Severity Reaction Status Date / Time albuterol Allergy Severe HIVES, Verified 03/22/23 19:18 DIFFICULTY WALKING, SHAKINESS, STUTTERING azithromycin Allergy Severe SHORT OF Verified 03/22/23 19:18 BREATH, PALPITATIONS tramadol Allergy Severe SEE COMMENT Verified 03/22/23 19:18 ibuprofen Allergy Intermediate Hives Verified 03/22/23 19:18 cephalexin AdvReac Severe "HEART Verified 03/22/23 19:18 PALPATIONS" morphine AdvReac Unknown PT STATES Verified 03/22/23 19:18 "BUILT UP A TOLERANCE TO MED, DOESN'T WORK". OPOIDS Allergy Severe DECREASE Uncoded 03/22/23 19:18 RESPIRATIONS--RECEIVED NARCAN Consultations 03/22/23 18:55 ED Decision to Admit Stat 03/22/23 20:25 Consult Nephrology Routine 03/22/23 23:40 Consult Gastroenterology Routine Ordered Studies 03/22/23 19:05 CT abd pelvis IV con only Stat Hospital Course (1) Acute hyponatremia: Plan Pt is a 73yoM with PMhx significant for chronic diastolic heart failure (EF 65%, TTE 2022), HTN, COPD/bronchial asthma, NAFLD cirrhosis, DM2 diet-controlled, chronic hyponatremia, left breast cancer s/p surgery/radiation on anastrozole, chronic tremors, chronic anemia (baseline hemoglobin 10), chronic thrombocytopenia admitted with acute on chronic hyponatremia. Acute on chronic hyponatremia-likely secondary to cirrhosis Sodium of 119 on admission, received IVF Na level currently improved to 126 Careful correction of sodium Hold home diuretics, continue gentle hydration Nephrology consult- appreciate recs Has been getting more intravenous fluid as per rn enterostomal Sodium level remains low at 127 without any acute symptoms Appreciate nephrology input and recommendation that she can be discharged today Denies any other significant symptoms and she will be discharged home this afternoon Electrolyte derangements Hypophosphatemia and hypocalcemia repleted by Nephro Phosphorus remains mildly low at 2.2 Has been getting supplement Sodium remains low otherwise electrolytes are normalized Postprandial Emesis Has been ongoing for a month Question of gastroparesis GI consult- appreciate recs -advised to monitor and manage conservatively -Use nausea meds prn -close follow up after discharge with Dr. Elizabeth who follows with her in the outpatient clinic. -Can consider outpatient gastric emptying scan if symptoms recur. We will need to continue with lactulose with a history of increasing ammonia as an outpatient with change in mental status No more nausea and or vomiting DOLORES Secondary to illness Cr elevated to 1.25 on admission Improved to normal limits after hydration Kidney function has improved and is normalized Chronic diastolic heart failure (EF 65%, TTE 2022) equivocal volume status patient intravascularly dry with some third spacing secondary to NAFLD cirrhosis Holding home diuretics- appreciate nephrology recs for resuming diuretics in the setting of hyponatremia Stable-no acute symptoms HTN stable BP COPD/bronchial asthma as per records, lung status at baseline DM2 diet-controlled well-controlled as of recent hemoglobin A1c of 5.2 this month ISS left breast cancer status post surgery/radiation on anastrozole chronic tremors Stable chronic anemia hemoglobin at baseline with noted hemodilution chronic thrombocytopenia secondary to cirrhosis Stable Diet: Low sodium, DMII DVT prophylaxis: SCDs Re: Thrombocytopenia Full code Dispo: PT/OT orders placed Has had PT and OT evaluation and recommended home Total Time Total Time Spent Total Time Spent (In Minutes): 35 minutes Discharge Plan Discharge Items Patient Disposition: Home - Self-Care Reason For Visit: HYPONATREMIA Discharge Diagnosis: Acute hyponatremia, electrolyte imbalance, chronic diastolic heart failure, NAFLD cirrhosis, type 2 diabetes Condition on Discharge: Fair Activity: Resume your previous activity Non-emergency contact: Primary Care Provider Call non-emergency contact if: you have any medication questions and your symptoms worsen Follow-up/Referrals: Mark Caal MD [Primary Care Provider] - (Date & Time 03/29/2023 1:00 PM Provider Mark Caal MD [facility] ) Diet: Carb Consistent or DM2 Fluids: 1500ml (6 cups) Addtl Attending Provider Instructions: Please take precautions to avoid falls Take lactulose as needed to make sure you have 1-2 bowel movements a day Take your medications as advised Do not drink more than 1500 mL of fluid a day Please keep appointment with your healthcare providers Pending Studies at Discharge: No Stand-Alone Forms: My [facility], Smoking Cessation Medications and DC Order Prescriptions: New lactulose 10 gram/15 mL (15 mL) Solution 30 g PO DAILY PRN (Reason: constipation) Qty: 600 0RF Phospha 250 Neutral 250 mg Tablet 1 tab PO BID Qty: 60 0RF Continued calcium carbonate-vitamin D3 600 mg(1,500mg) -400 unit capsule 1 cap PO BID levalbuterol tartrate 45 mcg/actuation HFA aerosol inhaler 1 puff inhalation Q4H PRN (Reason: Wheezing) acetaminophen [Tylenol 8 Hour] 650 mg Tablet Extended Release 650 mg PO Q8H PRN (Reason: Pain) (DME) OneTouch Verio test strips Strip See Rx Instructions .ROUTE .MEDSUPPLY Qty: 50 0RF Rx Instructions: Check Blood sugar levels once per day as advised (DME) lancets [OneTouch Delica Lancets] 30 gauge misc See Rx Instructions .ROUTE .MEDSUPPLY Qty: 100 0RF Rx Instructions: Check Blood sugar levels once per day as advised latanoprost 0.005 % drops 1 drp OPB HS anastrozole 1 mg tablet 1 mg PO QAM pantoprazole 40 mg tablet,delayed release (DR/EC) 40 mg PO DAILYBB montelukast 10 mg tablet 10 mg PO QAM milk thistle seed extract 175 mg Tablet 175 mg PO QAM cyclosporine [Restasis] 0.05 % Dropperette 1 drp OPHTHALMIC (EYE) QAM torsemide 20 mg tablet 20 mg PO BID Qty: 60 0RF cinnamon bark [Cinnamon] 500 mg Capsule 1,000 mg PO BID fluticasone propionate 110 mcg/actuation HFA aerosol inhaler 2 puff INHALATION AMPM garlic 100 mg Tablet 1,000 mg PO BID guaifenesin [Cough Syrup] 100 mg/5 mL liquid 200 mg PO Q6H PRN (Reason: cough) Qty: 473 0RF Discontinued spironolactone 100 mg Tablet 100 mg PO QAM Qty: 30 0RF Discharge Orders: Discharge Order (Routine); Ordered 03/26/23 Ordered By: Enedelia Melvin Admission Data Admit Date/Time: 03/22/23 20:21 Attending Provider: Enedelia Melvin Admit Provider: Rios Pike Primary Care Provider: Mark Caal Other Providers: Ángela Ding; Jaime Foster; Maryanne Sosa; Mahsa Calvo; Steve Alcala; Dotty Bishop; Rios Pike; Pedro Zhong; Ian Brown; Kina Boo; Shahana Mendes; Danni Campa; Dasha Michelle; Rufino Hernadez; Cyrus Abraham; Andres Singh; Daniel Elizabeth; Lubna Dubois; Micheal Hodge; Emma Magana; Lauren Vega; Margy Jacob; Monique Mcfarlane; Lisa Sullivan; Vahid Erickson; Sukhjinder Rogel; Aniyah Mora; Екатерина Jackson Jr Other Interventions: Discharge Summary Assessment (RN) Last Done: 03/26/23 15:46
--- OUTSIDE RECORDS SUMMARY | 2023-03-29 07:12 | External Medical Summary ---
Author Name Unknown Address Unknown Organization [id number]:[facility] - [address] [place] [address] Laboratory Report Ordering Provider Test Date Status BISHOP NATH 03/21/2023 12:13:25 Final Observation Date Value Abnormality Reference (Units ) Status Ammonia 03/21/2023 12:13:25 62 Above high normal 11 -35 (umol/L) Final Performing Location LABORATORY [facility] - [address] [place] [address]
--- OUTSIDE RECORDS SUMMARY | 2023-03-29 07:12 | External Medical Summary ---
Author Name Unknown Address Unknown Organization [id number][place] [place] [address] [place] [address] Laboratory Report Ordering Provider Test Date Status LINNETTE MALCOLM 03/21/2023 12:13:25 Final Observation Date Value Abnormality Reference (Units ) Status Ferritin 03/21/2023 12:13:25 63 13-150 (ng /mL) Final Postmenopausal women have hi gher ferritin levels than pre-menopausal women. The above reference interval is based on pre-menopausal women. Performing Location [facility] [place] [address] [place] [address]
--- OUTSIDE RECORDS SUMMARY | 2023-03-29 07:12 | External Medical Summary ---
Author Name Unknown Address Unknown Organization [id number]:[facility] - [address] [place] [address] Laboratory Report Ordering Provider Test Date Status LAURENT GALLARDO 03/21/2023 12:14:43 Final Warfarin Therapy
INR: 2 .0-3.0 conventional anticoagulation
INR: 2.5- 3.5 high intensity anticoagulation Observation Date Value Abnormality Reference (Units ) Status PT 03/21/2023 12:14:43 14.7 11.6-15.2 (seconds) Final INR 03/21/2023 12:14:43 1.1 0.8-1.2 Final Performing Location [facility] [address] - [address] [place] [address]
--- OUTSIDE RECORDS SUMMARY | 2023-03-29 07:12 | External Medical Summary ---
Author Name Unknown Address Unknown Organization [id number]:[facility] [place] [address] [place] [address] Laboratory Report Ordering Provider Test Date Status LINNETTE MALCOLM 03/21/2023 12:13:25 Final Observation Date Value Abnormality Reference (Units ) Status Iron 03/21/2023 12:13:25 45 33-151 (ug/dL) Final Iron-binding capacity 03/21/2023 12:13:25 323 250-425 (ug/dL) Final Transferrin Sat % 03/21/2023 12:13:25 14 Below low normal 15-55 (%) Final Performing Location [facility] [place] [address] [place] [address]
--- OUTSIDE RECORDS SUMMARY | 2023-03-29 07:12 | External Medical Summary ---
Author Name Unknown Address Unknown Organization [id number]:[facility] - [address] [place] [id number] Laboratory Report Ordering Provider Test Date Status RICHIE JIN 03/19/2023 07:23:00 Final Normal: <30 mg/g creatinine< br/>High: 30-300 mg/g creatinine
Very High: >300 mg/g creatinine
Nephrotic: >2200 mg/g creatinine Observation Date Value Abnormality Reference (Units ) Status Albumin, Urine 03/19/2023 07:23:00 <1.20 (mg/d L) Final This testing was performed a s part of a [facility] [employer] fulfillment initiative Creatinine, Urine 03/19/2023 07:23:00 38 (m g/dL) Final ALBUMIN/CREATININE RATIO, HIDE 03/19/2023 07:23:00 Uninterpretable Albumin/Creatinine ratio due to very low albumin and creatinine values. <30 (mg/g Creat) Final Performing Location [facility]ORY [facility] - [address] [facility] [place] [address]
--- OUTSIDE RECORDS SUMMARY | 2023-03-29 07:12 | External Medical Summary ---
Author Name Unknown Address Unknown Organization [id number][facility] [address] [place] [address] Laboratory Report Ordering Provider Test Date Status LINNETTE MALCOLM 03/21/2023 12:13:25 Final Observation Date Value Abnormality Reference (Units ) Status SYNC LEUKOCYTES IN BLOOD BY AUTOMATED COUNT 03/21/2023 12:13:25 9.89 4.00-10.80 (K/uL) Final Segs 03/21/2023 12:13:25 65.3 40.0-75.0 (%) Final Lymphs % 03/21/2023 12:13:25 15.6 Below low normal 18.0-42.0 (%) Final Monos 03/21/2023 12:13:25 18.4 Above high normal 1.0-11.0 (%) Final Eosinophils 03/21/2023 12:13:25 0.5 0.0-6.0 (%) Final Basos 03/21/2023 12:13:25 0.2 0.0-2.0 (%) Final Absolute Segs 03/21/2023 12:13:25 6.46 1.80-7.70 (K/uL) Final Lymphs, absolute 03/21/2023 12:13:25 1.54 1.00-4.80 (K/ul) Final Monos, Abs 03/21/2023 12:13:25 1.82 Above high normal 0.00-1.10 (K/uL) Final Eos, Abs 03/21/2023 12:13:25 0.05 0.00-0.70 (K/uL) Final Basos, Abs 03/21/2023 12:13:25 0.02 0.00-0.20 (K/uL) Final Performing Location [facility] [address] [place] [address]
--- OUTSIDE RECORDS SUMMARY | 2023-03-29 07:12 | External Medical Summary | Summary of Care ---
Author Name Unknown Organization [facility] Address [address] [place] [address] Phone [phone] Care Team Providers Care Quality Assurance Representative Name Role Phone Mark Caal MD Primary Care Provider [phone] Reason for Visit * Reason Comments Outpatient Testing Encounter Details Date Type Department Care Team (Late st Contact Info) Description 03/21/2023 12:10 PM EDT Laboratory [facility], [facility] [address] [facility] [place] [address] [facility] [address] [facility] [address] Cirrhosis of liver (HCC)*; Anemia due to chronic blood loss; Personal history of malignant neoplasm of skin; DM type 2 causing vascular disease, not at goal (HCC); Steatohepatitis, non-alcoholic Allergies Active Allergy Reactions Criticality Noted Date Comments Albuterol Other (Please comment) High 12/15/2014 Shakiness; difficulty walking; stuttering Other reaction(s): Hives Azithromycin sob, palpitations Azithromycin 01/20/2022 Other reaction(s): Unknown Cephalexin Hives High 02/24/2013 Other reaction(s): "HEART PALPATIONS" Ibuprofen Rash High 11/02/2013 Other reaction(s): Hives Morphine 10/31/2017 Per patient, does not work Other reaction(s): PT STATES "BUILT UP A TOLERANCE TO MED, DOESN'T WORK". Other Allergy (See Comments) High 01/20/2022 Other reaction(s): DECREASE RESPIRATIONS--RECEIVE D NARCAN OPOIDS Tramadol High 11/09/2020 Bad reaction after back surgery- per pt never to take again, needed narcan Other reaction(s): Unknown documented as of this encounter (statuses as of 03/21/2023) Medications Medication Sig Dispensed Refills Start Date End Date Status latanoprost (XALATAN) 0.005 % ophthalmic solution Instill 1 Drop into both eyes at bedtime. 0 Active Psyllium 51.7 % Oral Packet 1 Dose 3 times a day as needed. 0 Active Calcium Carbonate-Vitamin D 600-400 MG-UNIT per chew tabletIndications:M alignant neoplasm of left breast in female, estrogen receptor positive, unspecified site of breast Take 1 Tab by mouth 2 times a day. 60 Tab 6 01/22/2018 Active Milk Thistle 175 MG CAPS Take by mouth 1 Capsule daily . 0 Active Docusate Sodium 100 MG Oral Capsule Take 1 Capsule by mouth 3 times a day as needed. 0 Active Acetaminophen ER 650 MG Oral Tablet Extended Release Take 1 Tablet by mouth every 8 hours as needed. 0 Active Meclizine HCl 12.5 MG Oral Tablet (Antivert) Take 1 Tablet by mouth 3 times a day as needed. 0 Active Cinnamon 500 MG Oral Capsule Take 2 Capsules by mouth in the morning and 2 Capsules at noon and 2 Capsules before bedtime. 0 Active Garlic 100 MG Oral Tablet Take 10 Tablets by mouth in the morning and 10 Tablets before bedtime. 0 Active Restasis 0.05 % Ophthalmic Emulsion Instill 1 Drop into both eyes in the morning. 0 09/29/2020 Active Probiotic 250 MG Oral Capsule Take by mouth . culturalle probiotic - 0 Active guaiFENesin 100 MG/5ML Oral Liquid (Robitussin) Take 10 mL by mouth every 6 hours as needed. 0 Active Levalbuterol HCl 1.25 MG/3ML Inhalation Nebulization Solution (Xopenex) Inhale via nebulizer 1 Ampule every 4 hours as needed for Wheezing. 72 mL 12 02/01/2022 Active Additional Information Patient not taking.Reported on 03/11/2023 Levalbuterol Tartrate 45 MCG/ACT Inhalation Aerosol (Xopenex HFA)Indications:Mod erate persistent asthma without complication Inhale 1 Puff by mouth every 4 hours as needed for Wheezing. 45 g 1 08/13/2022 Active Fluticasone Propionate HFA 110 MCG/ACT Inhalation Aerosol (Flovent HFA)Indications:Mod erate persistent asthma without complication Inhale 2 Puffs by mouth in the morning and 2 Puffs before bedtime. 36 g 1 08/13/2022 Active Montelukast Sodium 10 MG Oral Tablet (Singulair) TAKE 1 TABLET BY MOUTH EVERY DAY IN THE MORNING 100 Tablet 2 12/05/2022 Active Pantoprazole Sodium 40 MG Oral Tablet Delayed Release (Protonix) TAKE 1 TABLET BY MOUTH EVERY DAY IN THE MORNING 90 Tablet 3 02/21/2023 Active Spironolactone 100 MG Oral Tablet (Aldactone) Take 1 Tablet by mouth in the morning. In the morning.. 0 03/04/2023 Active Torsemide 20 MG Oral Tablet (Demadex) Take 1 Tablet by mouth in the morning and 1 Tablet before bedtime. 0 02/25/2023 Active documented as of this encounter (statuses as of 03/21/2023) Active Problems Problem Noted Date Diagnosed Date Heart failure 03/11/2023 Primary open-angle glaucoma, bilateral, mild sta ge 03/11/2023 COPD, group B, by GOLD 2017 classification 07/30 Overview: Per COPD GOLD Classification Anemia due to chronic blood loss 07/26/2022 Secondary esophageal varices without bleeding Type II diabetes mellitus wi th peripheral circulatory disorder 07/23/2022 Type 2 diabetes mellitus without complication Hyperlipidemia 04/18/2021 Post-operative state 09/09/2020 S/P lumbar laminectomy 09/09/2020 Nontoxic goiter, unspecified 07/06/2019 Portal hypertension 11/21/2018 Paroxysmal atrial tachycardia 11/21/2018 HTN, goal below 140/90 11/21/2018 Ventral hernia 11/12/2018 Cirrhosis of liver 07/18/2018 Overview: Suggested on CT Essential tremor 04/03/2016 Gait disturbance 05/09/2015 Overview: Uncertain etiology Personal history of other malignant neoplasm of skin 03/02/2014 Overview: 15+ years ago (nose) High risk for fracture due to osteoporosis by DE XA scan 12/03/2013 Moderate persistent asthma, uncomplicated 2010 Knee joint replacement status 05/24/2009 Gastroesophageal reflux disease without esophagi tis 05/25/2008 documented as of this encounter (statuses as of 03/21/2023) Resolved Problems Problem Noted Date Diagnosed Date Resolved Date Sacroiliitis 04/18/2021 07/23/2022 Chronic obstructive pulmonary disease 04/18/2021 08/01/2022 Overview: Per COPD GOLD Classification Morbid (severe) obesity due to excess calories 04/18/2021 10/19/2021 Prediabetes 11/28/2020 05/04/2021 Overview: Per Prediabetes protocol Primary open-angle glaucoma, bilateral, mild stage 07/06/2019 07/23/2022 Leg edema, left 08/19/2018 11/21/2018 Cirrhosis of liver 07/18/2018 9 Overview: Suggested on CT Thrombocytopenia 05/26/2018 07/23/2022 Malignant neoplasm of left b reast in female, estrogen receptor positive 12/07/2017 07/22/2018 Carcinoma of lower outer nazia drant of breast, left 12/06/2017 07/23/2022 Major depressive disorder, s dillon episode, severe without psychotic features 12/06/20172018 Abnormal mammogram 09/19/2017 8 AK (actinic keratosis) 07/04/201712/07 Overview: AKs (Efudex central face 07/07) Vision blurred 02/12/2017 12/07/2017 Glaucoma of right eye 02/04/20172019 Overview: history Myoclonic jerking 11/24/2015 12/07/2017 Staggering gait 11/03/2015 12/07/2017 Rhinitis, nonallergic 12/16/20142018 Chest tightness 12/16/2014 12/07/2017 Dyspnea and respiratory abnormality 12/16/2014 12/07/2017 Obesity, Class I, BMI 30.0-3 4.9 (see actual BMI) 07/03/2013 06/10/2018 SPRAIN MEDIAL COLLAT LIG - rupture 07/19/2009 12/07/2017 INTESTINAL OBSTRUCT NEC 06/20/200611/18 ADVANCE DIRECTIVE INFORMATION 02/15/2005 12/07/2017 Overview: No, Advance Directive brochure given to patient at prior appointment. Diverticulosis of colon 02/15/200511/18 Myalgia and myositis 019 Sinus tachycardia 12/07/2017 Overview: put on metoprolol while in hospital after knee surgery. She had bouts of tachycardia. documented as of this encounter (statuses as of 03/21/2023) Immunizations Name Administration Dates Next Due COVID-19 mRNA, LNP-s, No Pre serve, 2-Dose Series ([employer]) 03/27/2021,08/16/2020,07/19/2020 Pneumococcal Conjugate Vacc, 13 Valent (Prevnar) 06/07/2017 Pneumococcal Polysaccharide PPV23 (Pneumovax) 11/21/2018,09/18/2011 SEASONAL INFLUENZA, PF, 6 M & Above, IM , (FLULAVAL or FLUZONE) 05/19/2018,06/07/2017 Seasonal Influenza, Quadriva lent Hd (Fluzone Hd) 04/02/2022,04/18/2021 Seasonal Influenza, Split, I IV3, With Preserve, Inj 01/26/2015,03/04/2014,03/25/2013,01/27,02/17/2011,02/18/2008,04/18/2007 ,06/20/2006 TD, Preservative Free 04/19/2003 TDAP (age 10 and older)(Boostrix) 10/29/2013 TDAP (age 11 and older)(Adacel) 07/26/2003 Varicella Zoster Vaccine (Adult) 11/01/2013 documented as of this encounter Social History Tobacco Use Types Packs/Day Years Used Date Smoking Tobacco: Never Smokeless Tobacco: Never Alcohol Use Standard Drinks/Week Comments No 0 (1 standard drink = 0.6 oz pur e alcohol) PHQ-2 Answer Date Recorded PHQ Adult Total Score 0 07/23/2022 Hunger Vital Sign Answer Date Recorded Worried About Running Out of Food in the Last Ye ar Never true 01/01/2019 Ran Out of Food in the Last Year Never true 01/01/2019 Sex and Gender Information Value Date Recorded Sex Assigned at Not on file Gender Identity Not on file Sexual Orientation Not on file Job Start Date Occupation Industry Not on file Not on file Not on file documented as of this encounter Functional Status Functional Status Response Date of Assess ment Are you deaf or do you have serious difficulty h earing? No 09/09/2020 Are you blind or do you have serious difficulty seeing, even when wearing glasses? No 09/09/2020 Do you have serious difficul ty walking or climbing stairs? (5 years old or older) Yes 09/09/2020 Do you have difficulty dress ing or bathing? (5 years old or older) No 09/09/2020 Because of a physical, menta l, or emotional condition, do you have difficulty doing errands alone such as visiting a doctor s office or shopping? (15 years old or older) No 09/10/19 21 Cognitive Status Response Date of Assessm ent Because of a physical, menta l, or emotional condition, do you have serious difficulty concentrating, remembering, or making decisions? (5 years old or older No 09/09/2020 documented as of this encounter Plan of Treatment Upcoming Encounters Date Type Department Care Team (Late st Contact Info) Description 04/02/2023 11:00 AM EST Office Visit Hematology/Oncology [facility] [address] [place] [address] Della Zhong CRNP [address] [facility] [place] [address] 05/22/2023 3:00 PM EST Office Visit Hepatology, [facility] [address] [place] [address] Aniyah Mora DO [address] [place] [address] 07/16/2023 2:30 PM EST Office Visit Rheumatology [address] [place] [address] Bishop Quinones, RAKEL [address] [facility] [place] [address] 09/17/2023 2:40 PM EDT Office Visit [facility] [address] [place] [id number] Mark Caal MD [address] [place] [address] Pending Results Name Type Priority Associated Diagnoses Date /Time AMMONIA Lab Routine Cirrhosis of liver (HCC) Anemia due to chronic blood loss Personal history of malignant neoplasm of skin 03/21/2023 12:13 PM EDT FERRITIN Lab Routine Cirrhosis of liver (HCC) Anemia due to chronic blood loss Personal history of malignant neoplasm of skin 03/21/2023 12:13 PM EDT IRON SCREEN, INCLUDING TIBC Lab Routine Cirrhosis of liver (HCC) Anemia due to chronic blood loss Personal history of malignant neoplasm of skin 03/21/2023 12:13 PM EDT HEMOGLOBIN A1C Lab Routine DM type 2 causing vascular disease, not at goal (HCC) 03/21/2023 12:13 PM EDT COMPREHENSIVE METABOLIC PANEL Lab Routine Cirrhosis of liver (HCC) Anemia due to chronic blood loss Personal history of malignant neoplasm of skin 03/21/2023 12:13 PM EDT PT INR Lab Routine Cirrhosis of liver (HCC) Steatohepatitis, non-alcoholic 03/21/2023 12:14 PM EDT Scheduled Orders Name Type Priority Associated Diagnoses Orde r Schedule AMMONIA Lab Routine Cirrhosis of liver (HCC) Anemia due to chronic blood loss Personal history of malignant neoplasm of skin Expected: 03/21/2023, Expires: 03/21/2024 FERRITIN Lab Routine Cirrhosis of liver (HCC) Anemia due to chronic blood loss Personal history of malignant neoplasm of skin Expected: 03/21/2023, Expires: 03/21/2024 IRON SCREEN, INCLUDING TIBC Lab Routine Cirrhosis of liver (HCC) Anemia due to chronic blood loss Personal history of malignant neoplasm of skin Expected: 03/21/2023, Expires: 03/21/2024 HEMOGLOBIN A1C Lab Routine DM type 2 causing vascular disease, not at goal (HCC) Expected: 03/21/2023, Expires: 03/21/2024 COMPREHENSIVE METABOLIC PANEL Lab Routine Cirrhosis of liver (HCC) Anemia due to chronic blood loss Personal history of malignant neoplasm of skin Expected: 03/21/2023, Expires: 03/21/2024 PT INR Lab Routine Cirrhosis of liver (HCC) Steatohepatitis, non-alcoholic Expected: 03/21/2023, Expires: 03/21/2024 Scheduled Procedures Name Priority Associated Diagnoses Date/Ti me ESOPHAGOGASTRODUODENOSCOPY ( EGD), FLEXIBLE, TRANSORAL, DIAGNOSTIC Recall Esophageal varices (HCC) COLONOSCOPY FLEXIBLE PROXIMAL DIAGNOSTIC Recall History of colon polyps Health Maintenance Due Date Last Done Comments Alpha-1 Antitrypsin 02/05/1970 Diabetic Eye Exam 02/05/1970 Diabetic Foot Exam 02/05/1970 Hepatitis B (1 of 3 - Risk 3-dose series) 2012 Zoster Vaccines (2 of 3) 12/27/2013 11/01/2013 COVID-19 Vaccine ( season) 2023 03/27/2021, 08/16/2020, 07/19/2020 Influenza Vaccine (FLU shot) (#1) 2023 04/02/2022, 04/18/2021, 05/19/2018, Additional history exists HbA1c 01/23/2023 07/23/2022, 01/18, 10/19/2021, Additional history exists Depression Screening 07/24/2023 07/23/2022, 08/06/19 15 O2 ASSESSMENT COMPLETED IN PAST YEAR FOR COPD 09/08/2023 09/07/2022 DTaP,Tdap,and Td Vaccines (3 - Td or Tdap) 10/30/2023 10/29/2013, 07/26/2003, 04/19/2003 GFR 11/01/2023 10/31/2022, 08/18, 07/16/2022, Additional history exists Mammogram 11/29/2023 11/28/2022, 11/17, 11/17/2020, Additional history exists DXA Scan 12/06/2023 12/05/2021, 0711/2019, 11/18/2017, Additional history exists Albumin/Creatinine Ratio 03/19/2024 023, 03/14/2023, 10/19/2021 COLONOSCOPY-EVERY 3 YRS AGES 18-100 07/25/2024 07/25/2021, 07/25/2021, 08/25/2019, Additional history exists Lipid Panel 01/29/2027 01/29/2022, 10/18, 09/20/2008, Additional history exists Hepatitis C Screening Completed 04/08/2018 Pneumococcal Vaccine: 65+ Years Completed 11/21/2018, 06/07/2017, 09/18/2011 Colonoscopy Discontinued 07/25/2021, 12/2021, 08/18/2018, Additional history exists Colorectal Cancer Screening Discontinued VITAMIN D LEVEL ONCE IN A LIFETIME-USE SMARTSET# [id number] Completed 08/30/2022, 11/26/2019, 12/28/2013 Cologuard Discontinued Fecal Occult Blood Test Discontinued GARDASIL-HPV IMMUNIZATION SERIES Aged Out No longer eligible based on patient's age to complete this topic MENINGOCOCCAL (MENACTRA/MENVEO) Aged Out No longer eligible based on patient's age to complete this topic Sigmoidoscopy Discontinued documented as of this encounter Medical Devices Implanted Type Area Acid Cutter Device Identifier Shelf Expiration Date Model / Serial / Lot Surface Articular - [id number] Implanted:Qty: 1 on 09/15/2009 at OR [facility] Right: Knee [employer] 04/19/2015 [id number] 0-20 / / [id number] Clip Quick 2.8mm 230cm - [id number] Implanted:Qty: 1 on 07/25/2021 by Lisa Sullivan MD at ENDOSCOPY [facility] Colon [employer] 09/17/2023 [id number] / [id number] documented as of this encounter Procedures Procedure Name Priority Date/Time Associated Diagnosis Comments DIFFERENTIAL, AUTOMATED Routine 03/21/2023 12:13 PM EDT Cirrhosis of liver (HCC) Anemia due to chronic blood loss Personal history of malignant neoplasm of skin CBC Routine 03/21/2023 12:13 PM EDT Cirrhosis of liver (HCC) Anemia due to chronic blood loss Personal history of malignant neoplasm of skin CBC Routine 03/21/2023 12:13 PM EDT Cirrhosis of liver (HCC) Anemia due to chronic blood loss Personal history of malignant neoplasm of skin documented in this encounter Results * (ABNORMAL) DIFFERENTIAL, AUTOMATED (03/21/2023 12:13 PM EDT) WBC 9.89 4.00 - 10.80 K/uL 03/21/2023 12:31 PM EDT [facility] Neutrophils % 65.3 40.0 - 75.0 % 03/21/2023 12:31 PM EDT [facility] Lymphocytes % 15.6(L) 18.0 - 42.0 % 03/21/2023 12:31 PM EDT [facility] Monocytes % 18.4(H) 1.0 - 11.0 % 03/21/2023 12:31 PM EDT [facility] Eosinophils % 0.5 0.0 - 6.0 % 03/21/2023 12:31 PM EDT [facility] Basophils % 0.2 0.0 - 2.0 % 03/21/2023 12:31 PM EDT [facility] Absolute Neutrophils 6.46 1.80 - 7.70 K/uL 03/21/2023 12:31 PM EDT [facility] Absolute Lymphocytes 1.54 1.00 - 4.80 K/ul 03/21/2023 12:31 PM EDT [facility] Absolute Monocytes 1.82(H) 0.00 - 1.10 K/uL 03/21/2023 12:31 PM EDT [facility] Absolute Eosinophils 0.05 0.00 - 0.70 K/uL 03/21/2023 12:31 PM EDT [facility] Absolute Basophils 0.02 0.00 - 0.20 K/uL 03/21/2023 12:31 PM EDT [facility] Blood Venous blood specimen / Unknown Venipuncture / Unknown 03/21/2023 12:13 PM EDT 03/21/2023 12:13 PM EDT Alexander Harrell MD LAB BLOOD [facility] [address] [place] [address] * (ABNORMAL) CBC (03/21/2023 12:13 PM EDT) WBC 9.89 4.00 - 10.80 K/uL 03/21/2023 12:31 PM EDT [facility] RBC 3.30 3.85 - 5.15 M/uL 03/21/2023 12:31 PM EDT [facility] HGB 11.0(L) 12.0 - 15.3 g/dL 03/21/2023 12:31 PM EDT [facility] HCT 32.3(L) 36.0 - 45.2 % 03/21/2023 12:31 PM EDT [facility] MCV 97.9 81.5 - 97.5 fL 03/21/2023 12:31 PM EDT [facility] MCH 33.3 27.0 - 34.0 pg 03/21/2023 12:31 PM EDT [facility] MCHC 34.1 32.0 - 36.0 g/dL 03/21/2023 12:31 PM EDT [facility] RDW 14.9 11.5 - 15.5 % 03/21/2023 12:31 PM EDT [facility] PLT 177 140 - 400 K/uL 03/21/2023 12:31 PM EDT [facility] MPV 9.2 6.6 - 11.1 fL 03/21/2023 12:31 PM EDT [facility] Blood Venous blood specimen / Unknown Venipuncture / Unknown 03/21/2023 12:13 PM EDT 03/21/2023 12:13 PM EDT Alexander Harrell MD LAB BLOOD [facility] [place] [id number] documented in this encounter Visit Diagnoses Diagnosis Cirrhosis of liver (HCC)- Primary Cirrhosis of liver without mention of alcohol Anemia due to chronic blood loss Iron deficiency anemia secondary to blood loss (chronic) Personal history of malignant neoplasm of skin Personal history of other malignant neoplasm of skin DM type 2 causing vascular disease, not at goal (HCC) Type II or unspecified type diabetes mellitus with peripheral circulatory disorders, not stated as uncontrolled Steatohepatitis, non-alcoholic Other chronic nonalcoholic liver disease documented in this encounter Advance Directives Documents on File Type Date Recorded Patient Managing Consultant Expl anation Advance Directives and Living Will 12/17/2019 ADVANCE DIRECTIVE / LIVING WILL DECLARATION Advance Directives and Living Will 11/17/2019 ADVANCE DIRECTIVE / LIVING WILL DECLARATION Latest Code Status on File Code Status Date Activated Date Inactivated Comments Full Code 09/09/2020 2:04 PM 09/10/2020 7:05 PM This order reflects the patients wishes and were consensually agreed upon. Question Answer Comments Discussion of Advance Directives occurred with: Not Discussed Code Status History Code Status Date Activated Date Inactivated Comments Full Code 09/09/2020 9:39 AM 09/09/2020 2:04 PM This order reflects the patients wishes and were consensually agreed upon. Question Answer Comments Discussion of Advance Directives occurred with: Not Discussed Full Code 07/08/2019 1:30 PM 07/08/2019 8:10 PM This order reflects the patients wishes and were consensually agreed upon. Full Code 11/11/2018 9:25 PM 11/12/2018 9:19 PM This order reflects the patients wishes and were consensually agreed upon. Full Code 08/15/2010 8:05 AM 08/17/2010 6:47 PM This order reflects the patients wishes and were consensually agreed upon. Question Answer Comments Discussion of Advance Directives occurred with: Patient Does the patient have a Living Will? No Does the patient have Health Care Power of Rock Climbing Team Member? No Care Teams Quality Assurance Representative Relationship Specialty Start Date End Date Mark Caal MD [address] [facility] [place] [address] PCP - General Family Medicine 07/21/18 documented as of this encounter
--- OUTSIDE RECORDS SUMMARY | 2023-03-29 07:12 | External Medical Summary ---
Author Name Unknown Address Unknown Organization [facility] [place] [id number] Laboratory Report Ordering Provider Test Date Status LINNETTE MALCOLM 03/21/2023 12:13:25 Final Observation Date Value Abnormality Reference (Units ) Status BUN 03/21/2023 12:13:25 29 Above high normal 6-20 (mg/dL) Final Creatinine 03/21/2023 12:13:25 1.1 Above high normal 0.5-1.0 (mg/dL) Final Glomerular filtration rate/1.73 sq M.predicted [Volume Rate/Area] in Serum, Plasma or Blood by Creatinine-based formula (CKD-EPI) 03/21/2023 12:13:25 51 Below low normal >=60 (mL/min) Final eGFR is calculated based on the CKD-EPI 2020 equation SODIUM 03/21/2023 12:13:25 122 Below low normal 135 -146 (mmol/L) Final Potassium 03/21/2023 12:13:25 3.9 3.5-5.1 (m mol/L) Final Cl 03/21/2023 12:13:25 85 Below low normal 98- 107 (mmol/L) Final CO2 03/21/2023 12:13:25 22 22-32 (mmo l/L) Final Anion gap 03/21/2023 12:13:25 15 7-15 (mmol /L) Final Glucose 03/21/2023 12:13:25 164 Above high normal 70 -120 (mg/dL) Final Albumin 03/21/2023 12:13:25 3.3 Below low normal 3.8 -5.0 (g/dL) Final AST (Aspartate aminotransferase) 03/21/2023 12:13:25 82 Above high normal 10-35 (U/L) Final Alk Phos 03/21/2023 12:13:25 128 35-130 (U/ L) Final Bilirubin, Total 03/21/2023 12:13:25 1.4 Above high no rmal <=1.2 (mg/dL) Final Calcium 03/21/2023 12:13:25 8.2 Below low normal 8.4 -10.2 (mg/dL) Final Protein 03/21/2023 12:13:25 6.6 6.0-8.3 (g /dL) Final ALT (Alanine aminotransferase) 03/21/2023 12:13:25 40 Above high normal 10-35 (U/L) Final Performing Location [facility] [facility] [address]
--- OUTSIDE RECORDS SUMMARY | 2023-03-29 07:13 | External Medical Summary | Summary of Care ---
Author Name Unknown Organization [facility] Address [address] [place] [address] Phone [phone] Care Team Providers Care Planting Supervisor Name Role Phone Mark Caal MD Primary Care Provider [phone] Reason for Referral * Evaluate & Treat - Unlimited Visits (Within 3 days (urgent)) - Authorized Specialty Diagnoses / Procedures Referred By Contac t Referred To Contact Claim Service Representative Diagnoses Cirrhosis of liver with ascites, unspecified hepatic cirrhosis type Mark Caal MD [address] [place] [address] Referral ID Status Reason Start Date Expiration Date Visits Requested Visits Authorized [id number] Authorized Specialty Services Required 3 1 1 Question Answer Referral Priority Within 3 days (urgent) Where should this appointment be scheduled? [facility] Program Type Case Management Complex Case Management [facility] Device(s) Requested Other (See Comment) Alarm Settings Standard per protocol Comments Primary Claim Service Representative: Henna Taylor RN Is the patient already enrolled with another [facility] [place]service? (If no, will need to "push the button") No Does the patient have a physical address? (If no, provide physical address if requesting device) Yes Requested Devices/IVR: IVR Post-Discharge Start date: 03/11/23 How many weeks: 4 If want time other than 9am, note time here: call [phone] at 11 am thanks Henna Taylor RN Reason for Visit * Reason Onset Date Comments case management 03/06/2023 Encounter Details Date Type Department Care Team Description 03/06/2023 Claim Service Representative Telephone Care Coordination [address] [place] [address] Henna Taylor RN [address] [place] [address] case management Allergies Active Allergy Reactions Severity Noted Date Comments Albuterol Other (Please comment) [...] (See Comments) High 01/20/2022 Other reaction(s): DECREASE RESPIRATIONS--RECEIVED NARCAN OPOIDS Tramadol High 11/09/2020 Bad reaction after back surgery- per pt never to take again, needed narcan Other reaction(s): Unknown documented as of this encounter (statuses as of 03/06/2023) Medications Medication Sig Dispensed Refills Start Date End Date Status latanoprost (XALATAN) 0.005 % ophthalmic solution Instill 1 Drop into both eyes at bedtime. 0 Active Psyllium 51.7 % Oral Packet 1 Dose 3 times a day as needed. 0 Active Calcium Carbonate-Vitamin D 600-400 MG-UNIT per chew tabletIndications:Ma lignant neoplasm of left breast in female, estrogen [...] for Wheezing. 72 mL 12 02/01/2022 Active Levalbuterol Tartrate 45 MCG/ACT Inhalation Aerosol (Xopenex HFA)Indications:Mode rate persistent asthma without complication Inhale 1 Puff by mouth every 4 hours as needed for Wheezing. 45 g 1 08/13/2022 Active Fluticasone Propionate HFA 110 MCG/ACT Inhalation Aerosol (Flovent HFA)Indications:Mode rate persistent asthma without complication Inhale 2 Puffs [...] THE MORNING 90 Tablet 3 02/21/2023 Active documented as of this encounter (statuses as of 03/06/2023) Active Problems Problem Noted Date COPD, group B, by GOLD 2017 classificati on 07/30/2022 Overview: Per COPD GOLD Classification Anemia due to chronic blood loss 023 Secondary esophageal varices without ble eding 07/23/2022 Type II diabetes mellitus with periphera l circulatory disorder 07/23/2022 Type 2 diabetes mellitus without complic ation 04/18/2021 Hyperlipidemia 04/18/2021 Post-operative state 09/09/2020 S/P lumbar laminectomy 09/09/2020 Nontoxic goiter, unspecified 07/06/2019 Portal hypertension 11/21/2018 Paroxysmal atrial tachycardia 11/21/2018 HTN, goal below 140/90 11/21/2018 Ventral hernia 11/12/2018 Cirrhosis of liver 07/18/2018 Overview: Suggested on CT Essential tremor 04/03/2016 Gait disturbance 05/09/2015 Overview: Uncertain etiology Personal history of other malignant neop lasm of skin 03/02/2014 Overview: 15+ years ago (nose) High risk for fracture due to osteoporos is by DEXA scan 12/03/2013 Moderate persistent asthma, uncomplicate d 03/16/2011 Knee joint replacement status 05/24/2009 Gastroesophageal reflux disease without esophagitis 05/25/2008 documented as of this encounter (statuses as of 03/06/2023) Resolved Problems Problem Noted Date Resolved Date Sacroiliitis 04/18/2021 07/23/2022 Chronic obstructive pulmonary disease 04/18/2021 08/01/2022 Overview: Per COPD GOLD Classification Morbid (severe) obesity due to excess calories 1 06/18/2020 10/19/2021 Prediabetes 11/28/2020 05/04/2021 Overview: Per Prediabetes protocol Primary open-angle glaucoma, bilateral, mild sta ge 07/06/2019 07/23/2022 Leg edema, left 08/19/2018 11/21/2018 Cirrhosis of liver 07/18/2018 11/04/2018 Overview: Suggested on CT Thrombocytopenia 05/26/2018 07/23/2022 Malignant neoplasm of left b reast in female, estrogen receptor positive 12/07/2017 07/22/2018 Carcinoma of lower outer quadrant of breast, lef t 12/06/2017 07/23/2022 Major depressive disorder, s dillon episode, severe without psychotic features 12/06/2017 06/10/2018 Abnormal mammogram 09/19/2017 12/07/2017 AK (actinic keratosis) 07/04/2017 8 Overview: AKs (Efudex central face 07/07) Vision blurred 02/12/2017 12/07/2017 Glaucoma of right eye 02/04/2017 12/22/2019 Overview: history Myoclonic jerking 11/24/2015 12/07/2017 Staggering gait 11/03/2015 12/07/2017 Rhinitis, nonallergic 12/16/2014 07/21/2018 Chest tightness 12/16/2014 12/07/2017 Dyspnea and respiratory abnormality 12/16/2014 12/07/2017 Obesity, Class I, BMI 30.0-34.9 (see actual BMI) 07/03/2013 06/10/2018 SPRAIN MEDIAL COLLAT LIG - rupture 07/19/2009 12/07/2017 INTESTINAL OBSTRUCT NEC 06/20/2006 12/08/19 18 ADVANCE DIRECTIVE INFORMATION 02/15/2005 Overview: No, Advance Directive brochure given to patient at prior appointment. Diverticulosis of colon 02/15/2005 12/08/19 18 Myalgia and myositis 05/26/2018 Sinus tachycardia 12/07/2017 Overview: put on metoprolol while in hospital after knee surgery. She had bouts of tachycardia. documented as of this encounter (statuses as of 03/06/2023) Immunizations Name Administration Dates Next Due COVID-19 mRNA, LNP-s, No Pre serve, 2-Dose Series (Pfizer) 03/27/2021,08/16/2020,07/19/2020 Pneumococcal Conjugate Vacc, 13 Valent (Prevnar) [...] drink = 0.6 oz pur e alcohol) Food Insecurity Answer Date Recorded Within the past 12 months, y ou worried that your food would run out before you got money to buy more. Never true 01/05/2020 Within the past 12 months, t he food you bought just didn't last and you didn't have money to get more. Never true 01/05/2020 Sex Assigned at Date Recorded Not on file Job Start Date Occupation [...] Plan of Treatment Upcoming Encounters Date Type Specialty Care Team Description 03/11/2023 Office Visit Family Medicine Jon Zayas MD [address] [place] [address] 03/18/2023 Office Visit Hematology Oncology Julio Cesar, Munoz Martin, MD [address] [place] [address] 05/22/2023 Office Visit Gastroenterology Aniyah Mora DO [address] [place] [address] 07/16/2023 Office Visit Rheumatology Bishop Quinones CRNP [address] [facility] [place] [address] Scheduled Procedures Name Priority Associated Diagnoses Date/Ti me ESOPHAGOGASTRODUODENOSCOPY ( EGD), FLEXIBLE, TRANSORAL, DIAGNOSTIC Recall Esophageal varices (HCC) COLONOSCOPY FLEXIBLE PROXIMAL DIAGNOSTIC Recall History of colon polyps Scheduled Referrals Name Type Priority Associated Diagnoses Orde r Schedule REMOTE PATIENT MONITORING REFERRAL Referral Within 3 days (urgent) Cirrhosis of liver with ascites, unspecified hepatic cirrhosis type Ordered: 03/06/2023 Health Maintenance Due Date Last Done Comments Alpha-1 Antitrypsin 02/05/1970 DIABETES-EYE EXAM 02/05/1970 Diabetic Foot Exam 02/05/1970 Hepatitis B (1 of 3 - Risk 3-dose series) 2012 Zoster Vaccines (2 of 3) 12/27/2013 11/01/2013 Albumin/Creatinine Ratio 10/19/2022 10/19/2021 COVID-19 Vaccine ( season) 2023 03/27/2021, 08/16/2020, [...] Additional history exists DXA Scan 12/06/2023 12/05/2021, 11/2019, 11/18/2017, Additional history exists COLONOSCOPY-EVERY 3 YRS AGES 18-100 07/25/2024 07/25/2021, 07/25/2021, 08/25/2019, Additional history exists Lipid Panel 01/29/2027 01/29/2022, 10/18, 09/20/2008, Additional history exists Hepatitis C Screening Completed 04/08/2018 Pneumococcal Vaccine: 65+ Years Completed 11/21/2018, 06/07/2017, 09/18/2011 Colonoscopy Discontinued 07/25/2021, 12/2021, 08/18/2018, Additional history exists Colorectal Cancer Screening Discontinued VITAMIN D LEVEL ONCE IN A LIFETIME-USE SMARTSET# [id number] Completed 08/30/2022, 11/26/2019, 12/28/2013 Cologuard Discontinued Fecal Occult Blood Test Discontinued GARDASIL-HPV IMMUNIZATION SERIES Aged Out No longer eligible based on patient's age to complete this topic MENINGOCOCCAL (MENACTRA/MENVEO) Aged Out No longer eligible based on patient's age to complete this topic Sigmoidoscopy Discontinued documented as of this encounter Medical Devices Implanted Type Area Bleach Boiler Packer Device Identifier Shelf Expiration Date Model / Serial / Lot Surface Articular - [id number] Implanted:Qty: 1 on 09/15/2009 at [place] [facility] [place] Right: Knee [employer] 04/19/2015 [id number] 0-20 / / [id number] Clip Quick 2.8mm 230cm - [id number] Implanted:Qty: 1 on 07/25/2021 by Lisa Sullivan MD at ENDOSCOPY [facility] Colon [employer] 09/17/2023 [id number] / [id number] documented as of this encounter Visit Diagnoses Diagnosis Cirrhosis of liver with ascites, unspecified hepatic cirrhosis type- Primary documented in this encounter Advance Directives Documents on File Type Date Recorded Patient Manager College Expl anation Advance Directives and Living Will [...] the patient have Health Care Power of Superintendent Horticulture? No Care Teams Planting Supervisor Relationship Specialty Start Date End Date Mark Caal MD [address] [place] [address] PCP - General Family Medicine 07/21/18 documented as of this encounter
--- OUTSIDE RECORDS SUMMARY | 2023-03-29 07:13 | External Medical Summary | Summary of Care ---
Author Name Unknown Organization [facility] Address [address] [place] [address] Phone [phone] Care Team Providers Care Full Stack Web Developer Name Role Phone Mark Caal MD Primary Care Provider [phone]- [phone] Reason for Referral * Precert (Within 10 days (routine)) - Pending Review Specialty Diagnoses / Procedures Referred By Contac t Referred To Contact Radiology Diagnoses Other ascites Procedures IR PARACENTESIS Daniel Mancilla MD [address] [place] [address] Referral ID Status Reason Start Date Expiration Date V isits Requested Visits Authorized [id number] Pending Review 03/05/2023 999 999 Reason for Visit * Reason Onset Date Comments Advice 02/22/2023 Encounter Details Date Type Department Care Team Description 02/22/2023 Telephone [facility] [id number] [place] [address] Mark Caal MD [address] [place] [address] Advice Allergies Active Allergy Reactions Severity Noted Date [...] as of this encounter (statuses as of 02/27/2023) Medications Medication Sig Dispensed Refills Start Date End Date Status latanoprost (XALATAN) 0.005 % ophthalmic solution Instill 1 Drop into both eyes at bedtime. 0 Active Psyllium 51.7 % Oral Packet 1 Dose 3 times a day as needed. 0 Active Calcium Carbonate-Vitamin D 600-400 MG-UNIT per chew tabletIndications: Malignant neoplasm of left breast in female, estrogen [...] eyes in the morning. 0 09/29/2020 Active amLODIPine Besylate 10 MG Oral Tablet (Norvasc) daily. 0 08/12/2020 Active Probiotic 250 MG Oral Capsule Take by mouth . culturalle probiotic - 0 Active guaiFENesin 100 MG/5ML Oral Liquid (Robitussin) Take 10 mL by mouth every 6 hours as needed. 0 Active Fexofenadine HCl 180 MG Oral Tablet (Giana) Take by mouth 1 Tablet daily as needed for Allergies. 30 Tablet 11 01/29/2022 Active Additional Information Patient not taking.Reported on 07/31/2022 Levalbuterol HCl 1.25 MG/3ML Inhalation Nebulization Solution (Xopenex) Inhale via nebulizer 1 Ampule every 4 hours as needed for Wheezing. 72 mL 12 02/01/2022 Active Furosemide 20 MG Oral Tablet (Lasix) TAKE 1 TABLET BY MOUTH EVERY DAY IN THE MORNING 90 Tablet 2 07/27/2022 Active Additional Information Patient taking differently: 40 mg Daily(AM), Reported on 02/25/2023 Levalbuterol Tartrate 45 MCG/ACT Inhalation Aerosol (Xopenex HFA)Indications:Mo derate persistent asthma without complication Inhale 1 Puff by mouth every 4 hours as needed for Wheezing. 45 g 1 08/13/2022 Active Fluticasone Propionate HFA 110 MCG/ACT Inhalation Aerosol (Flovent HFA)Indications:Mo derate persistent asthma without complication Inhale 2 Puffs by mouth in the morning and 2 Puffs before bedtime. 36 g 1 08/13/2022 Active Sucralfate 1 GM/10ML Oral Suspension (Carafate) PLEASE SEE ATTACHED FOR DETAILED DIRECTIONS 0 08/08/2022 Active Famotidine 20 MG Oral Tablet (Pepcid) Take 1 Tablet by mouth in the morning and 1 Tablet in the evening. 0 08/07/2022 Active Montelukast Sodium 10 MG Oral Tablet (Singulair) TAKE 1 TABLET BY MOUTH EVERY DAY IN THE MORNING 100 Tablet 2 12/05/2022 Active Spironolactone 50 MG Oral Tablet (Aldactone) TAKE 1 TABLET BY MOUTH EVERY DAY IN THE MORNING 90 Tablet 3 01/29/2023 Active Pantoprazole Sodium 40 MG Oral Tablet Delayed Release (Protonix) TAKE 1 TABLET BY MOUTH EVERY DAY IN THE MORNING 90 Tablet 3 02/21/2023 Active Albumin Human 25 % Intravenous Solution Administer 150 mL intravenously once for 1 dose. Pre-paracentesis. 150 mL 0 02/26/2023 3 documented as of this encounter (statuses as of 02/27/2023) Active Problems Problem Noted Date COPD, group [...] as of this encounter (statuses as of 02/27/2023) Resolved Problems Problem Noted Date Resolved Date [...] as of this encounter (statuses as of 02/27/2023) Immunizations Name Administration Dates Next Due COVID-19 mRNA, LNP-s, No Pre serve, 2-Dose Series ([employer]) 03/27/2021,08/16/2020,07/19/2020 Pneumococcal Conjugate Vacc, 13 Valent (Prevnar) 06/07/2017 Pneumococcal Polysaccharide PPV23 (Pneumovax) 11/21/2018,09/18/2011 SEASONAL INFLUENZA, PF, 6 M & Above, IM , (FLULAVAL or FLUZONE) 05/19/2018,06/07/2017 Seasonal Influenza, Quadriva lent Hd (Fluzone Hd) 04/02/2022,04/18/2021 Seasonal Influenza, Split, I IV3, With Preserve, Inj 01/26/2015,03/04/2014,03/25/2013,01/27,02/17/2011,02/18/2008,04/18/2007 ,06/20/2006,02/15/2005,03/19/2002 TD, Preservative Free 04/19/2003 TDAP (age 10 [...] (15 years old or older) No 09/10/19 Cognitive Status Response Date of Assessm ent Because of a physical, menta l, or emotional condition, do you have serious difficulty concentrating, remembering, or making decisions? (5 years old or older No 09/09/2020 documented as of this encounter Miscellaneous Notes * Telephone Encounter - Chikis Hinojosa RN - 02/27/2023 3:08 PM EDT I called to touch base with the patient as I was going to arrange her outpatient paracentesis and wanted to see what he scheduling preferences are. She tells me that one of her big toes in newly bluein color. Reports it is blue at this time. She also tells me she is having shortness of breath whenshe is up walking around. Reports this is worse for her. Reports her abdomen is round and hard. Reports she saw her PCP on Saturday and they changed her medications but this did not help her edema. Sheis with her and is agreeable to him taking her to the ER. [place] text sent to Dr. Mancilla. Called report to charge nurse at [facility]. Family practice FYI. * Addendum Note - Daniel Mancilla MD - 02/26/2023 1:25 PM EDTAddended by: DANIEL MANCILLA on: 02/26/2023 01:25 PM Modules accepted: Orders * Addendum Note - Lorin Cooper RN - 02/26/2023 11:01 AM EDTAddended by: LORIN COOPER on: 02/26/2023 11:01 AM Modules accepted: Orders * Telephone Encounter - Lorin Cooper RN - 02/26/2023 10:[address] Nj- orders pended ( I saw Lornikia put in a NSCP- but no location) so I did mimic her orders. I do see PCP put coag orders in as well, but they were not drawn. Can you review and sign? I can then fax and coordinate a date with [facility]. * Telephone Encounter - Lorin Cooper RN - 02/26/2023 10:00 AM EDT Reviewed records - ER viisit 02/21 for increased edema legs/abdomen with weeping in her legs x 1 week. On lasix 10/aldactone 50. No weight recorded. CT without IV contrast shows large ascites. Switched to torsemide 40/day, aldactone dose unchanged. Nurses - Can she be arranged for a tap this week? Also, needs GI f/u with midlevel or hepatology in1-2 weeks. I can see her if no other spots. Will arrange for more definitive liver imaging at time of clinc visit. Arjun - Agree with med changes. Cont nadolol for now. Needs BMP in 1 week, ordered. * Telephone Encounter - Arjun Morrison MD - 02/25/2023 2:27 PM EDT Just saw pt for ER f/u on liver cirrhosis with ascites Has increased lasix to 40 mg , taking spironolactone 50 mg But no clinical improvement on legs swelling and belly Changed to torsemide 40 mg and will f/u blood tests Reviewed all blood tests No sign on CHF, infection No indication for SBP prophylaxis Pt has f/u appointment with hepatology only in May If pt does not improve in a few days, should we plan for paracentesis as out pt ? * Telephone Encounter - Mark Caal MD - 02/22/2023 2:30 PM EDT The cirrhosis was known. Not sure what the status of acute issues are. Can we get the ED note and scan in so that I could review? * Telephone Encounter - Blanche Matta LPN - 02/22/2023 1:01 PM EDT Okay for pt to wait til 02/25 for ER follow up? * Telephone Encounter - KARAN Osborne - 02/22/2023 11:35 AM EDT Patient called stating that she was seen in the ER yesterday 02/21/23. She stated that she has cirrhosis of liver and she has swollen feet and legs and leaking fluid through her feet and legs. Patientstated that she was told she should be seen again today to be checked for this, no ER dept appts until 02/25/23, no acute appt either. Please advise documented in this encounter Plan of Treatment Upcoming Encounters Date Type Specialty Care Team Description 02/28/2023 Laboratory Laboratory [facility] [address] [place] [address] 03/18/2023 Office Visit Hematology Oncology Alexander Harrell MD [address] [place], [place] [address] 05/22/2023 Office Visit Gastroenterology Aniyah Mora DO [address] [place] [address] 07/16/2023 Office Visit Rheumatology Bishop Quinones CRNP [address] [facility] [place], [place] [address] Scheduled Orders Name Type Priority Associated Diagnoses Orde r Schedule PT INR Lab Routine Other ascites Expected: 02/26/2023, Expires: 02/27/2024 IR PARACENTESIS Medical Imaging Routine Other ascites Expected: 03/05/2023, Expires: 03/29/2024 Scheduled Procedures Name Priority Associated Diagnoses Date/Ti [...] 11/01/2013 Albumin/Creatinine Ratio 10/19/2022 10/19/2021 COVID-19 Vaccine (4 - season) 2023 03/27/2021, 08/16/2020, 07/19/2020 Influenza Vaccine [...] Additional history exists DXA Scan 12/06/2023 12/05/2021, 07/11/2019, 11/18/2017, Additional history exists COLONOSCOPY-EVERY 3 YRS AGES 18-100 07/25/2024 07/25/2021, 07/25/2021, 08/25/2019, Additional history exists Lipid Panel 01/29/2027 01/29/2022, 10/18, 09/20/2008, Additional history exists Hepatitis C Screening Completed 04/08/2018 Pneumococcal Vaccine: 65+ Years Completed 11/21/2018, 06/07/2017, 09/18/2011 Colonoscopy Discontinued 07/25/2021, 03/0 12/2021, 08/18/2018, Additional history exists Colorectal Cancer Screening Discontinued VITAMIN D LEVEL ONCE IN A LIFETIME-USE SMARTSET# [id number] Completed 08/30/2022, 11/26/2019, 12/28/2013 Cologuard Discontinued Fecal Occult Blood Test Discontinued GARDASIL-HPV IMMUNIZATION SERIES Aged Out No longer eligible based on patient's age to complete this topic MENINGOCOCCAL (MENACTRA/MENVEO) Aged Out No longer eligible based on patient's age to complete this topic Sigmoidoscopy Discontinued documented as of this encounter Medical Devices Implanted Type Area All Around Gear Machine Operator Device Identifier Shelf Expiration Date Model / Serial / Lot Surface Articular - [id number] Implanted:Qty: 1 on 09/15/2009 at [place] [facility] [place] Right: Knee [employer] 04/19/2015 [id number] 0-20 / / [id number] Clip Quick 2.8mm 230cm - [id number] Implanted:Qty: 1 on 07/25/2021 by Lisa Sullivan MD at ENDOSCOPY [facility] Colon [employer] 09/17/2023 [id number] / [id number] documented as of this encounter Visit Diagnoses Diagnosis Other ascites- Primary documented in this encounter Advance Directives Documents on File Type Date Recorded Patient Scientific Artist Expl anation Advance Directives and Living Will [...] the patient have Health Care Power of Labor Union Business Representative? No Care Teams Full Stack Web Developer Relationship Specialty Start Date End Date Mark Caal MD [address] [place] [address] PCP - General Family Medicine 07/21/18 documented as of this encounter
--- OUTSIDE RECORDS SUMMARY | 2023-03-29 07:13 | External Medical Summary | Summary of Care ---
Author Name Unknown Organization [facility] Address [address] [place] [address] Phone [phone] Care Team Providers Care Wad Impregnator Name Role Phone Mark Caal MD Primary Care Provider [phone]- [phone] Reason for Referral * Precert (Within 10 days (routine)) - Pending Review Specialty Diagnoses / Procedures Referred By Contskey t Referred To Contact Radiology Diagnoses Other ascites Procedures IR PARACENTESIS Daniel Mancilla MD [address] [place] [address] Referral ID Status Reason Start Date Expiration Date V isits Requested Visits Authorized [id number] Pending Review 03/05/2023 999 999 Reason for Visit * Reason Onset Date Comments Advice 02/22/2023 Encounter Details Date Type Department Care Team Description 02/22/2023 Telephone [facility] [address] [place] [address] Mark Caal MD [address] [place] [address] Advice Allergies Active Allergy Reactions [...] as of this encounter (statuses as of 02/26/2023) Medications Medication Sig Dispensed Refills Start Date [...] 1 dose. Pre-paracentesis. 150 mL 0 02/26/2023 Active documented as of this encounter (statuses as of 02/26/2023) Active Problems Problem Noted Date COPD, group [...] as of this encounter (statuses as of 02/26/2023) Resolved Problems Problem Noted Date Resolved Date [...] as of this encounter (statuses as of 02/26/2023) Immunizations Name Administration Dates Next Due COVID-19 mRNA, LNP-s, No Pre serve, 2-Dose Series ([employer]) 03/27/2021,08/16/2020,07/19/2020 Pneumococcal Conjugate Vacc, 13 Valent (Prevnar) [...] as of this encounter Miscellaneous Notes * Addendum Note - Daniel Mancilla MD - 02/26/2023 1:25 PM EDTAddended by: DANIEL MANCILLA on: 02/26/2023 01:25 PM Modules accepted: Orders * Addendum Note - Lorin Cooper RN - 02/26/2023 11:01 AM EDTAddended by: LORIN COOPER on: 02/26/2023 11:01 AM Modules accepted: Orders * Telephone Encounter - Lorin Cooper RN - 02/26/2023 10:[address] Nj- orders pended ( I saw Lorella put in a NSCP- but no location) so I did mimic her orders. I do see PCP put coag orders in as well, but they were not drawn. Can you review and sign? I can then fax and coordinate a date with [facility]. * Telephone Encounter - Lorin Cooper RN [...] liver imaging at time of clinc visit. Juyeon - Agree with med changes. Cont nadolol [...] Specialty Care Team Description 02/28/2023 Laboratory [facility] [place] [address] [facility] [address] 03/18/2023 Office Visit Hematology Oncology Alexander Harrell MD [address] [place] [address] 05/22/2023 Office Visit Gastroenterology Aniyah Mora DO [address] [place] [address] 07/16/2023 Office Visit Rheumatology Bishop Quinones CRNP [address] [facility] [place] [address] Scheduled Orders Name Type Priority Associated Diagnoses [...] D LEVEL ONCE IN A LIFETIME-USE SMARTSET# 12042 Completed 08/30/2022, 11/26/2019, 12/28/2013 Cologuard Discontinued Fecal Occult Blood Test Discontinued GARDASIL-HPV IMMUNIZATION SERIES Aged Out No longer eligible based on patient's age to complete this topic MENINGOCOCCAL (MENACTRA/MENVEO) Aged Out No longer eligible based on patient's age to complete this topic Sigmoidoscopy Discontinued documented as of this encounter Medical Devices Implanted Type Area Bridge Maintainer Device Identifier Shelf Expiration Date Model / Serial / Lot Surface Articular - [id number] Implanted:Qty: 1 on 09/15/2009 at OR [facility] [place] Right: Knee [employer] 04/19/2015 00-5994-03 - [id number] Clip Quick 2.8mm 230cm - [id number] Implanted:Qty: 1 on 07/25/2021 by Lisa Sullivan MD at ENDOSCOPY [facility] Colon [employer] 09/17/2023 [id number]-202UR.[id number] / / [id number] documented as of this encounter Visit Diagnoses Diagnosis Other ascites- Primary documented in this encounter Advance Directives Documents on File Type Date Recorded Patient Hospital Attendant Expl anation Advance Directives and Living Will [...] the patient have Health Care Power of Water Jet Operator? No Care Teams Wad Impregnator Relationship Specialty Start Date End Date Mark Caal MD [address] [place] [address] PCP - General Family Medicine 07/21/18 documented as of this encounter
--- OUTSIDE RECORDS SUMMARY | 2023-03-29 07:13 | External Medical Summary | Summary of Care ---
Author Name Unknown Organization [facility] Address [address] [facility] [address] Phone [phone] Care Team Providers Care It Portfolio Manager Name Role Phone Mark Caal MD Primary Care Provider +1- [phone] Reason for Visit * Reason Comments eRx-Medication Refill Encounter Details Date Type Department Care Team Description 02/22/2023 Refill Gastroenterology, [facility] [address] [place] [address] Pedro Zhong CRNP [address] [place] [address] Liver cirrhosis secondary to nonalcoholic steatohepatitis (ADRIAN) (HCC)* Allergies Active Allergy Reactions Severity Noted Date [...] encounter Miscellaneous Notes * Telephone Encounter - Maricruz Wayne LPN - 02/26/2023 3:09 PM EDTRefused Prescriptions: Disp Refills Furosemide 20 MG Oral Tablet (Lasix) 90 Tab*2 Sig: TAKE 1 TABLET BY MOUTH EVERY DAY IN THE MORNINGRefused By: Antonio MANCILLA for Refusal: Course of treatment complete * Telephone Encounter - Chikis Hinojosa RN - 02/25/2023 2:07 PM EDT Called. No answer. Looks like she should still have some medication left * Telephone Encounter - Genny Rogers CPhT - 02/22/2023 3:31 PM EDTPending Prescriptions: Disp Refills Furosemide 20 MG Oral Tablet [Pharmacy Med*90 Tab*2 Sig: TAKE 1 TABLET BY MOUTH EVERY DAY IN THE MORNING * Telephone Encounter - Genny Rogers CPhT - 02/22/2023 3:30 PM EDT Patient is up to date for office visits. Pending Prescriptions: Disp Refills Furosemide 20 MG Oral Tablet (Lasix) [Pha*90 Tab*2 Sig: TAKE 1 TABLET BY MOUTH EVERY DAY IN THE MORNING Last Visit: 12/04/2022 (in office), 04/29/2020 (telemedicine) Next Visit: Visit date not found If no future appointments scheduled, and last appointment is greater than a year ago, please schedule patient for a follow-up appointment Last date the medication was ordered: 07/27/2022 Pharmacy: [id number] [facility] Is this request for a controlled substance?No it is not controlled. Urine Drug Screen:No results found. However, due to the size of the patient record, not all encounters were searched. Please check Results Review for a complete set of results. Patient Phone Numbers Labs: Lab Results Component Value Date/Time CREAT 0.7 10/31/2022 09:54 AM CREAT 0.6 05/12/2020 12:26 PM POTASSIUM 4.4 10/31/2022 09:54 AM POTASSIUM 4.3 05/12/2020 12:26 PM TSH 1.17 10/19/2021 03:14 PM TSH 1.460 08/02/2018 12:00 AM TSH 1.94 04/10/2016 08:19 AM LDLCALC 101 01/29/2022 02:49 PM LDLCALC 98 10/29/2013 02:19 PM LDLDIRECT NOT APPLICABLE 10/29/2013 02:19 PM ALT 37 (H) 10/31/2022 09:54 AM ALT 37 (H) 05/12/2020 12:26 PM HGBA1C 5.6 07/23/2022 09:29 AM HGBA1C 6.5 (H) 03/15/2020 11:40 AM documented in this encounter Plan of Treatment Upcoming Encounters Date Type Specialty Care Team Description 02/28/2023 Laboratory Laboratory [place], Laboratory [address] [place] [address] 03/18/2023 Office Visit Hematology Oncology Alexander Harrell MD [address] [place] [address] 05/22/2023 Office Visit Gastroenterology Aniyah Mora DO [address] [place] [address] 07/16/2023 Office Visit Rheumatology Bishop Quinones CRNP [facility] [place] [address] Scheduled Orders Name Type Priority Associated Diagnoses Orde r Schedule PT INR Lab Routine Liver cirrhosis secondary to nonalcoholic steatohepatitis (ADRIAN) (HCC) Expected: 02/25/2023, Expires: 02/26/2024 CBC Lab Routine Liver cirrhosis secondary to nonalcoholic steatohepatitis (ADRIAN) (HCC) Expected: 02/25/2023, Expires: 02/26/2024 Scheduled Procedures Name Priority Associated Diagnoses Date/Ti [...] D LEVEL ONCE IN A LIFETIME-USE SMARTSET# [id number] Completed 08/30/2022, 11/26/2019, 12/28/2013 Cologuard Discontinued Fecal Occult Blood Test Discontinued GARDASIL-HPV IMMUNIZATION SERIES Aged Out No longer eligible based on patient's age to complete this topic MENINGOCOCCAL (MENACTRA/MENVEO) Aged Out No longer eligible based on patient's age to complete this topic Sigmoidoscopy Discontinued documented as of this encounter Medical Devices Implanted Type Area Checkering Machine Operator Device Identifier Shelf Expiration Date Model / Serial / Lot Surface Articular - [id number] Implanted:Qty: 1 on 09/15/2009 at OR [facility] [place] Right: Knee [employer] 04/19/2015 00-5994-03 0-20 / / [id number] Clip Quick 2.8mm 230cm - [id number] Implanted:Qty: 1 on 07/25/2021 by Lisa Sullivan MD at ENDOSCOPY [facility] Colon [employer] 09/17/2023 [id number]-202UR.A / / [id number] documented as of this encounter Visit Diagnoses Diagnosis Liver cirrhosis secondary to nonalcoholic steatohepatitis (ADRIAN) (HCC)- Primary documented in this encounter Advance Directives Documents on File Type Date Recorded Patient Rake Operator Expl anation Advance Directives and Living Will [...] the patient have Health Care Power of Slitter Helper? No Care Teams It Portfolio Manager Relationship Specialty Start Date End Date Mark Caal MD [address] [place] [address] PCP - General Family Medicine 07/21/18 documented as of this encounter
--- OUTSIDE RECORDS SUMMARY | 2023-03-29 07:13 | External Medical Summary | Summary of Care ---
Author Name Unknown Organization [facility] Address [address] [place] [address] Phone [phone] Care Team Providers Care Test And Balance Engineer Name Role Phone Mark Caal MD Primary Care Provider +1- [phone] Reason for Visit * Reason Onset Date Comments FYI 12/10/2022 Encounter Details Date Type Department Care Team (Late st Contact Info) Description 12/10/2022 Telephone Gastroenterology, [facility] [address] [place] [address] Daniel Elizabeth MD [address] [place] [address] FYI Allergies Active Allergy Reactions Criticality Noted Date [...] as of this encounter (statuses as of 03/11/2023) Medications Medication Sig Dispensed Refills Start Date End Date Status latanoprost (XALATAN) 0.005 % ophthalmic solution Instill 1 Drop into both eyes at bedtime. 0 Active Psyllium 51.7 % Oral Packet 1 Dose 3 times a day as needed. 0 Active Calcium Carbonate-Vitami n D 600-400 MG-UNIT per chew tabletIndication s:Malignant neoplasm of left breast in female, estrogen receptor positive, unspecified site of breast Take 1 Tab by mouth 2 times a day. 60 Tab 6 8 Active Milk Thistle 175 MG CAPS Take [...] into both eyes in the morning. 0 1 Active Probiotic 250 MG Oral Capsule Take by mouth . culturalle probiotic - 0 Active guaiFENesin 100 MG/5ML Oral Liquid (Robitussin) Take 10 mL by mouth every 6 hours as needed. 0 Active Levalbuterol HCl 1.25 MG/3ML Inhalation Nebulization Solution (Xopenex) Inhale via nebulizer 1 Ampule every 4 hours as needed for Wheezing. 72 mL 12 2 Active Additional Information Patient not taking.Reported on 03/11/2023 Levalbuterol Tartrate 45 MCG/ACT Inhalation Aerosol (Xopenex HFA)Indications: Moderate persistent asthma without complication Inhale 1 Puff by mouth every 4 hours as needed for Wheezing. 45 g 1 3 Active Fluticasone Propionate HFA 110 MCG/ACT Inhalation Aerosol (Flovent HFA)Indications: Moderate persistent asthma without complication Inhale 2 Puffs by mouth in the morning and 2 Puffs before bedtime. 36 g 1 3 Active Montelukast Sodium 10 MG Oral Tablet (Singulair) TAKE 1 TABLET BY MOUTH EVERY DAY IN THE MORNING 100 Tablet 2 3 Active amLODIPine Besylate 10 MG Oral Tablet (Norvasc) daily. 0 1 03/06/20 23 Discontinued(Pat ient preference/disco ntinuation) Fexofenadine HCl 180 MG Oral Tablet (Giana) Take by mouth 1 Tablet daily as needed for Allergies. 30 Tablet 11 2 03/06/20 23 Discontinued(Pat ient preference/disco ntinuation) Pantoprazole Sodium 40 MG Oral Tablet Delayed Release (Protonix) Take by mouth 1 Tablet in the morning. 90 Tablet 3 2 02/22/20 23 Discontinued Spironolactone 50 MG Oral Tablet (Aldactone) Take 1 Tablet (50 mg) by mouth in the morning. 90 Tablet 2 2 01/30/20 23 Discontinued Furosemide 20 MG Oral Tablet (Lasix) TAKE 1 TABLET BY MOUTH EVERY DAY IN THE MORNING 90 Tablet 2 3 03/06/20 23 Discontinued(Pat ient preference/disco ntinuation) Sucralfate 1 GM/10ML Oral Suspension (Carafate) PLEASE SEE ATTACHED FOR DETAILED DIRECTIONS 0 3 03/06/20 23 Discontinued(Pat ient preference/disco ntinuation) Famotidine 20 MG Oral Tablet (Pepcid) Take 1 Tablet by mouth in the morning and 1 Tablet in the evening. 0 3 03/06/20 Discontinued(Pat ient preference/disco ntinuation) Carvedilol 6.25 MG Oral Tablet (Coreg) Take 1 Tablet by mouth in the morning and 1 Tablet in the evening. 60 Tablet 1 3 12/21/19 Discontinued documented as of this encounter (statuses as of 03/11/2023) Active Problems Problem Noted Date Diagnosed Date [...] as of this encounter (statuses as of 03/11/2023) Resolved Problems Problem Noted Date Diagnosed Date [...] as of this encounter (statuses as of 03/11/2023) Immunizations Name Administration Dates Next Due COVID-19 mRNA, LNP-s, No Pre serve, 2-Dose Series (Innoz) 03/27/2021,08/16/2020,07/19/2020 Pneumococcal Conjugate Vacc, 13 Valent (Prevnar) [...] Telephone Encounter - Chikis Hinojosa RN - 12/12/2022 11:00 AM EDT Images from the original note were not included. Daniel Elizabeth MD You 1 hour ago (9:19 AM) If her weight is < 5 lbs above her baseline, then please ask pt to increase carvedilol * Telephone Encounter - Chikis Hinojosa RN - 12/12/2022 10:55 AM EDT Pt called back in. Reports she has had no weight gain. Reports at home she weighed 167lbs and that's what she normally weighs at home. She will start the Carvedilol twice a day. Aware of the new script sent already. Will call back in a week or two with blood pressure/pulse readings. Aware to call us sooner for any other symptoms. FYI * Telephone Encounter - Chikis Hinojosa RN - 12/12/2022 10:14 AM EDT Attempted to call no VM set up * Telephone Encounter - Chikis Hinojosa RN - 12/12/2022 9:01 AM EDT Pt calling in. She gave me an updated phone for her. I updated the phone number in the chart. Pt reports she is calling in to let us know that her ankles are a little swollen. This started yesterday.Reports the swelling is moslty mild. She was told to watch for this with her recent medication change. She did not know about the increase yet she has been taking the carvedilol once a day. Her b/p ye sterday was 124/77, pulse: 67. No other symptoms asking for further advice. * Telephone Encounter - Chikis Hinojosa RN - 12/12/2022 8:17 AM EDT Daniel Elizabeth MD to Wi 12:43 PM Ok. If tolerating carvedilol 6.25 qd, can increase to BID. Will need f/u BP and pulse in 1-2 weeks. Script called in * Telephone Encounter - Chikis Hinojosa RN - 12/10/2022 1:[address] Elizabeth do you want her to come in for a nurse visit or just call in? * Telephone Encounter - Lena Castle - 12/10/2022 10:19 AM EDT Pt called in to give us her blood pressure reading for today. 12/10/22- 124/77 pulse 67 Pt stated that her medication got changed so Clara wanted her to keep track of her blood pressure readings. documented in this encounter Plan of Treatment Upcoming Encounters Date Type Department Care Team (Late st Contact Info) Description 04/02/2023 11:00 AM EST Office Visit Hematology/Oncology [facility] [address] [facility] [address] [place] [address] Della Zhong CRNP [address] [facility] [place] [address] 05/22/2023 3:00 PM EST Office Visit Hepatology, [facility] [address] [address] Aniyah Mora DO [address] [place] [address] 07/16/2023 2:30 PM EST Office Visit Rheumatology [facility] [address] [place] [address] Bishop Quinones CRNP [address] [facility] [place], [place] [address] 09/17/2023 2:40 PM EDT Office Visit [facility] [address] [place] [address] Mark Caal MD [address] [place] [address] Scheduled Procedures Name Priority Associated Diagnoses Date/Ti [...] D LEVEL ONCE IN A LIFETIME-USE SMARTSET# [id number] Completed 08/30/2022, 11/26/2019, 12/28/2013 Cologuard Discontinued Fecal Occult Blood Test Discontinued GARDASIL-HPV IMMUNIZATION SERIES Aged Out No longer eligible based on patient's age to complete this topic MENINGOCOCCAL (MENACTRA/MENVEO) Aged Out No longer eligible based on patient's age to complete this topic Sigmoidoscopy Discontinued documented as of this encounter Medical Devices Implanted Type Area Saw Repairer Device Identifier Shelf Expiration Date Model / Serial / Lot Surface Articular - [id number] Implanted:Qty: 1 on 09/15/2009 [place] [facility] [place]: Knee [employer] 04/19/2015 00-5994-03 0-20 / / [id number] Clip Quick 2.8mm 230cm - [id number] Implanted:Qty: 1 on 07/25/2021 by Lisa Sullivan MD at ENDOSCOPY [facility] Colon [employer] 09/17/2023 HX-202UR.A / / [id number] documented as of this encounter Advance Directives Documents on File Type Date Recorded Patient Blend Plant Operator Expl anation Advance Directives and Living [...] the patient have Health Care Power of Gimp Buttonhole Machine Operator? No Care Teams Test And Balance Engineer Relationship Specialty Start Date End Date Mark Caal MD [address] [facility] [place] [address] PCP - General Family Medicine 07/21/18 documented as of this encounter
--- OUTSIDE RECORDS SUMMARY | 2023-03-29 07:13 | External Medical Summary | Summary of Care ---
Author Name Unknown Organization [facility] Address [address] [place] [address] Phone [phone] Care Team Providers Care Bioprocess Engineer Name Role Phone Mark Caal MD Primary Care Provider [phone]- [phone] Encounter Details Date Type Department Care Team Description 03/06/2023 Rn Building Care Coordination [address], [place] [id number] Henna Taylor RN [address], [place] [id number] Cirrhosis of liver with ascites, unspecified hepatic cirrhosis type * Allergies Active Allergy Reactions Severity Noted Date [...] Calcium Carbonate-Vitamin D 600-400 MG-UNIT per chew tabletIndications :Malignant neoplasm of left breast in female, estrogen [...] Levalbuterol Tartrate 45 MCG/ACT Inhalation Aerosol (Xopenex HFA)Indications:M oderate persistent asthma without complication Inhale 1 Puff by mouth every 4 hours as needed for Wheezing. 45 g 1 08/13/2022 Active Fluticasone Propionate HFA 110 MCG/ACT Inhalation Aerosol (Flovent HFA)Indications:M oderate persistent asthma without complication Inhale 2 Puffs [...] THE MORNING 90 Tablet 3 02/21/2023 Active amLODIPine Besylate 10 MG Oral Tablet (Norvasc) daily. 0 08/12/2020 3 Discontinu ed(Patient preference /discontin uation) Fexofenadine HCl 180 MG Oral Tablet (Giana) Take by mouth 1 Tablet daily as needed for Allergies. 30 Tablet 11 01/29/2022 3 Discontinu ed(Patient preference /discontin uation) Furosemide 20 MG Oral Tablet (Lasix) TAKE 1 TABLET BY MOUTH EVERY DAY IN THE MORNING 90 Tablet 2 07/27/2022 3 Discontinu ed(Patient preference /discontin uation) Sucralfate 1 GM/10ML Oral Suspension (Carafate) PLEASE SEE ATTACHED FOR DETAILED DIRECTIONS 0 08/08/2022 3 Discontinu ed(Patient preference /discontin uation) Famotidine 20 MG Oral Tablet (Pepcid) Take 1 Tablet by mouth in the morning and 1 Tablet in the evening. 0 08/07/2022 3 Discontinu ed(Patient preference /discontin uation) Spironolactone 50 MG Oral Tablet (Aldactone) TAKE 1 TABLET BY MOUTH EVERY DAY IN THE MORNING 90 Tablet 3 01/29/2023 3 Discontinu ed(Medicat ion/Dose Changed) Torsemide 40 MG Oral Tablet Take 40 mg by mouth in the morning. 30 Tablet 5 02/25/2023 3 Discontinu ed(Medicat ion/Dose Changed) Albumin Human 25 % Intravenous Solution Administer 150 mL intravenously once for 1 dose. Pre-paracentesis. 150 mL 0 02/26/2023 3 Discontinu ed(Patient preference /discontin uation) documented as of this encounter (statuses as [...] mRNA, LNP-s, No Pre serve, 2-Dose Series (IVDesk) 03/27/2021,08/16/2020,07/19/2020 Pneumococcal Conjugate Vacc, 13 Valent (Prevnar) [...] No 09/09/2020 documented as of this encounter Progress Notes * Henna Taylor, RN - 03/06/2023 1:04 PM EDT Rn Building Progress Note: Date: 03/06/23 Assigned Patient Tier: 2 Connected with patient via phone. Verified patient name/. Advised patient that call is being recorded for quality and training purposes. Assessment: Pt. noted the following: Patient denies SOB, cough or angina Has some chronic swelling to her feet Patient does daily weights on her home scale, weight today was 156 lbs. Has a good appetite, denies bowel/bladder complaints No complaints of pain Says she has a small open are to her left lower leg, about the size of an eraser head Denies redness or pain to the area, is draining some clear fluid Patient does not check her blood sugars, last A1C July of 2022 was 5.6 Patient lives with her in a 1 story house Patient uses a cane to ambulate, independent with ADL's does the driving, patient manages her own medications Patient has a Living Will in [facility] Confirmed follow up appointment with Dr. Zayas on 03/11/23 Will enroll patient in post d/c IVR calls Did you receive an alert for an annual wellness visit? No Is this call for a hospital, jail or rehab facility discharge to home? Yes [facility] on 02/27/23with LE edema & abdominal distention, work up completed, medication changes made, patient also tested + for c.diff, started on antibiotics, discharged home on 03/04/23 Medication Reconciliation: Medication Reconciliation completed: yes Review of Current goals: Discussed the following patient-centered CM goals with the patient during this discussion: -GI: Patient will have GI issues addressed -Status: On Track patient denies abdominal pain, no loose stools, confirmed she is taking the Vanconycin as recommended. -LIVER: Patient will successfully manage their liver cirrhosis -Status: On Track patient denies abdominal distention, followed by GI & hepatology. -SAFETY: Prevent falls or injuries -Status: On Track patient independent with ambulation & ADL's. COPD Patient: YES Cough: denies, Breathing: Breathing at Baseline CHF Patient: NO CM Plan: Reviewed 3 Red Flags with patient. Advised to call CM with any of the following: Red Flag 1: increased SOB, productive cough, Red Flag 2: fever, chills, or Red Flag 3: increased LE/abdominal edema Remote Patient Monitoring: [facility] IVR Plan for Future Contacts: Plan to follow up within 1 week to check progress on the following goals/needs as above. Planned contacts from the following parties will occur this week: PCP office visit as additional contacts per workflow. Advancement/Closure Plan: Keep patient at current Tier with reassessment per workflow. Patient provided CM contact information and encouraged to call with any changes in condition. SNP Member? No PCP Notified of enrollment in CM/HM program: Yes Is Provider in agreement with POC? Yes Henna Taylor, KAELA Outpatient Case Management documented in this encounter Plan of Treatment Upcoming Encounters Date Type Specialty Care Team Description 03/11/2023 Office Visit Family Medicine Jon Zayas MD [address] [place] [address] 03/18/2023 Office Visit Hematology Oncology Alexander Harrell MD [address] [place] [address] 05/22/2023 Office Visit Gastroenterology Aniyah Mora DO [address] [place] [address] 07/16/2023 Office Visit Rheumatology Bishop Quinones CRNP [address] [place] [address] Scheduled Procedures Name Priority Associated Diagnoses Date/Ti [...] 11/01/2013 Albumin/Creatinine Ratio 10/19/2022 10/19/2021 COVID-19 Vaccine (24 season) 2023 03/27/2021, 08/16/2020, 07/19/2020 Influenza Vaccine [...] D LEVEL ONCE IN A LIFETIME-USE SMARTSET# [id number] Completed 08/30/2022, 11/26/2019, 12/28/2013 Cologuard Discontinued Fecal Occult Blood Test Discontinued GARDASIL-HPV IMMUNIZATION SERIES Aged Out No longer eligible based on patient's age to complete this topic MENINGOCOCCAL (MENACTRA/MENVEO) Aged Out No longer eligible based on patient's age to complete this topic Sigmoidoscopy Discontinued documented as of this encounter Medical Devices Implanted Type Area Doll Surgeon Device Identifier Shelf Expiration Date Model / Serial / Lot Surface Articular - [id number] Implanted:Qty: 1 on 09/15/2009 at OR [facility] Right: Knee [employer] 04/19/2015 00-5994-03 0-20 / / [id number] Clip Quick 2.8mm 230cm - [id number] Implanted:Qty: 1 on 07/25/2021 by Lisa Sullivan MD at ENDOSCOPY [facility] Colon [employer] 09/17/2023 [id number] / / [id number] documented as of this encounter Visit Diagnoses Diagnosis Cirrhosis of liver with ascites, unspecified hepatic cirrhosis type- Primary documented in this encounter Advance Directives Documents on File Type Date Recorded Patient Guide Escort Expl anation Advance Directives and Living Will [...] the patient have Health Care Power of Assignment Editor? No Care Teams Bioprocess Engineer Relationship Specialty Start Date End Date Oesterling, Mark R, MD [address], [place] [phone] PCP - General Family Medicine 07/21/18 documented as of this encounter
--- OUTSIDE RECORDS SUMMARY | 2023-03-29 07:13 | External Medical Summary | Summary of Care ---
Author Name Unknown Organization [facility] Address [address] [place] [address] Phone [phone] Care Team Providers Care Manager Practice Name Role Phone Mark Caal MD Primary Care Provider +1- [phone] Encounter Details Date Type Department Care Team (Late st Contact Info) Description 03/13/2023 Amphibious Operations OfficerNurses Supervisor[address] [address] Henna Taylor, RN [address] [place] [address] Hepatic cirrhosis, unspecified hepatic cirrhosis type, unspecified whether ascites present (HCC)* Allergies Active Allergy Reactions Criticality Noted Date [...] as of this encounter (statuses as of 03/13/2023) Medications Medication Sig Dispensed Refills Start Date [...] as of this encounter (statuses as of 03/13/2023) Active Problems Problem Noted Date Diagnosed Date [...] as of this encounter (statuses as of 03/13/2023) Resolved Problems Problem Noted Date Diagnosed Date [...] as of this encounter (statuses as of 03/13/2023) Immunizations Name Administration Dates Next Due COVID-19 mRNA, LNP-s, No Pre serve, 2-Dose Series (RecycleMatch) 03/27/2021,08/16/2020,07/19/2020 Pneumococcal Conjugate Vacc, 13 Valent (Prevnar) [...] of this encounter Progress Notes * Henna Taylor RN - 03/13/2023 11:31 AM EDT S: Spoke with patient O: Patient denies SOB, cough or angina Has a little swelling to her feet, but it continues to improve Weight today was 148 lbs Patient has a good appetite, denies bowel/bladder complaints No complaints of pain Using a cane to ambulate, no report of falls A: Phone Follow Up P: Encouraged patient to call with increased SOB, cough, fever, chills, increased LE edema Advised to call office for any change in health status or questions concerning care Encouraged patient to call leather case finisher with any questions/concerns at [phone]. Office Hours: Sat- 8-8 pm, Saturday 8-5 pm, [facility] weekend clinic hours: Saturdays 8-5, Sundays 8-5 Henna Taylor RN [address] [address] documented in this encounter Plan of Treatment Upcoming Encounters Date Type Department Care Team (Late st Contact Info) Description 04/02/2023 11:00 AM EST Office Visit Hematology/Oncology [facility] [address] [facility] [place] [address] Dlela Zhong CRNP [address] [place] [address] 05/22/2023 3:00 PM EST Office Visit Hepatology, [facility] [address] [facility] [place] [address] Aniyah Mora DO [address] [place] [address] 07/16/2023 2:30 PM EST Office Visit Rheumatology [facility] [address] [facility] [place], [place] [address] Bishop Quinones CRNP [address] [facility] [place], [place] [address] 09/17/2023 2:40 PM EDT Office Visit [facility] [address] [place] [phone] Mark Caal MD [address] [place] [address] Scheduled Procedures Name Priority Associated Diagnoses Date/Ti [...] D LEVEL ONCE IN A LIFETIME-USE SMARTSET# [id number] Completed 08/30/2022, 11/26/2019, 12/28/2013 Cologuard Discontinued Fecal Occult Blood Test Discontinued GARDASIL-HPV IMMUNIZATION SERIES Aged Out No longer eligible based on patient's age to complete this topic MENINGOCOCCAL (MENACTRA/MENVEO) Aged Out No longer eligible based on patient's age to complete this topic Sigmoidoscopy Discontinued documented as of this encounter Medical Devices Implanted Type Area Bacteriologist Industrial Device Identifier Shelf Expiration Date Model / Serial / Lot Surface Articular - [id number] Implanted:Qty: 1 on 09/15/[address] [facility] Right: Knee [employer] 04/19/2015 00-5994-03 0-20 / / [id number] Clip Quick 2.8mm 230cm - [id number] Implanted:Qty: 1 on 07/25/2021 by Lisa Sullivan MD at ENDOSCOPY [facility] Colon [employer] 09/17/2023 [id number] / / [id number] documented as of this encounter Visit Diagnoses Diagnosis Hepatic cirrhosis, unspecified hepatic cirrhosis type, unspecified whether ascites present (HCC)- Primary documented in this encounter Advance Directives Documents on File Type Date Recorded Patient Back Hoe Machine Operator Expl anation Advance Directives and Living [...] the patient have Health Care Power of House Cleaner Supervisor? No Care Teams Manager Practice Relationship Specialty Start Date End Date Mark Caal MD [address] [place] [address] PCP - General Family Medicine 07/21/18 documented as of this encounter
--- OUTSIDE RECORDS SUMMARY | 2023-03-29 07:13 | External Medical Summary ---
Author Name Unknown Address Unknown Organization K01:[facility] - [address] [place] [address] Laboratory Report Ordering Provider Test Date Status [facility]ARP 03/14/2023 13:55:18 Final Normal: <30 mg/g creatinine< br/>High: 30-300 mg/g creatinine
Very High: >300 mg/g creatinine
Nephrotic: >2200 mg/g creatinine Observation Date Value Abnormality Reference (Units ) Status Albumin, Urine 03/14/2023 13:55:18 <1.20 (mg/dL) Final Creatinine, Urine 03/14/2023 13:55:18 43 (mg/dL) Final Albumin/Creatinine [Mass Ratio] in Urine 03/14/2023 13:55:18 <28 <30 (mg/g Creat) Final Performing Location [facility] - [facility] [address] [place] [address]
--- OUTSIDE RECORDS SUMMARY | 2023-03-29 07:13 | External Medical Summary | Summary of Care ---
Author Name Unknown Organization [facility] Address [address] [place] [address] Phone [phone] Care Team Providers Care Battery Charger Tester Name Role Phone Mark Caal MD Primary Care Provider +1- [phone] Reason for Visit * Reason Comments Hospital Follow-Up Pt present for hospi melissa follow up.Pt states she still has swelling in her feet and has a sore on lower L leg. Encounter Details Date Type Department Care Team (Latest Contact Info) Description 03/11/2023 2:00 PM EDT Office Visit [facility] [address] [place] [address] September, Jon Prasad MD [address] [place] [address] Hepatic cirrhosis, unspecified hepatic cirrhosis type, unspecified whether ascites present (HCC)*; Portal hypertension (HCC); Heart failure, unspecified HF chronicity, unspecified heart failure type (HCC); Primary open-angle glaucoma, bilateral, mild stage; Type 2 diabetes mellitus without complication, without long-term current use of insulin (HCC); COPD, group B, by GOLD 2017 classification ([facility]); Hospital discharge follow-up Allergies Active Allergy Reactions Criticality Noted Date [...] mRNA, LNP-s, No Pre serve, 2-Dose Series (Traxer) 03/27/2021,08/16/2020,07/19/2020 Pneumococcal Conjugate Vacc, 13 Valent (Prevnar) [...] on file documented as of this encounter Last Filed Vital Signs Vital Sign Reading Time Taken Comments Blood Pressure 128/74 03/11/2023 1:44 PM EDT Pulse 90 03/11/2023 1:44 PM EDT Temperature 36.6 C (97.8 F) 03/11/2023 1:44 PM ED T Respiratory Rate 16 03/11/2023 1:44 PM EDT Oxygen Saturation - - Inhaled Oxygen Concentration - - Weight 69.7 kg (153 lb 9.6 oz) 03/11/2023 1:44 P M EDT Height - - Body Mass Index 29.04 09/07/2022 7:09 AM EDT documented in this encounter Functional Status Functional Status Response [...] as of this encounter Progress Notes * Jon Osmar May, MD - 03/11/2023 2:03 PM EDT Images from the original note were not included. Assessment and Plan 73-year-old female with history of cirrhosis, portal hypertension, known esophageal varices status post banding, heart failure, diet-controlled type 2 diabetes, COPD presents for hospital follow up. She was doing well since hospital discharge with resolution of bilateral lower extremity edema. Continue torsemide 20 mg twice daily and spironolactone 100 mg daily. Check sodium on 03/14/2023 along with an A1c per patient request. Complete vancomycin for C diff. She was follow up with Hematology/Oncology to assist with portal venous thrombosis not on anticoagulation. She has follow up with GI in May 2023 for ongoing management of her cirrhosis. No other changes required today. Schedule appointment with PCP in 6 months for ongoing management. 1. Hepatic cirrhosis, unspecified hepatic cirrhosis type, unspecified whether ascites present (HCC) 2. Portal hypertension (HCC) 3. Heart failure, unspecified HF chronicity, unspecified heart failure type (HCC) 4. Primary open-angle glaucoma, bilateral, mild stage 5. Type 2 diabetes mellitus without complication, without long-term current use of insulin (HCC) - HEMOGLOBIN A1C; Future 6. COPD, group B, by GOLD 2017 classification (HCC) 7. Hospital discharge follow-up Wrap-Up Follow up in 6 months. History of Present Illness The patient is a 73-year-old female with past medical history of type 2 diabetes, hyperlipidemia, COPD, cirrhosis with esophageal varices and portal hypertension who presents for hospital follow up. The patient was admitted on 02/27/2023 and discharged on 03/04/2023 from [facility]. Patient presented due to ongoing lower extremity edema and abdominal distention. Doppler was negative for DVT. There is a small volume of ascites found on abdominal ultrasound - no indication for tap. Torsemide was increased to 20 mg twice daily and spironolactone was continued at 100 mg daily. Abdominal pain was evaluated with a CT abdomen/pelvis. This showed no evidence of megacolon but did show portal hypertension and a nonocclusive thrombus in the portal splenic confluence similar to prior studies. Her amlodipine was held due to propensity to cause swelling. She was continued on a beta-lionel given history of esophageal varices. She continues to follow with Heme-Onc due to history of as ymptomatic portal vein thrombosis. No indication for anticoagulation per their notes. Hospitalization complicated by C diff. Currently taking vancomycin to be completed 03/13/2023. Patient doing well since hospitalization. Weight down 12 pounds on home scale. Continues to take torsemide 20 mg twice daily. Swelling down significantly. Still with trace right lower extremity swelling. Diarrhea has resolved. Has 48 more hours worth of vancomycin. Has follow up with hematology/oncology for PVT, GI for cirrhosis. Physical Exam Vitals: 03/11/23 1344 Temp: 36.6 C (97.8 F) Pulse: 90 Resp: 16 BP: 128/74 Physical Exam Physical Exam Vitals reviewed. Constitutional: General: She is not in acute distress. Cardiovascular: Rate and Rhythm: Normal rate and regular rhythm. Heart sounds: No murmur heard. Pulmonary: Effort: Pulmonary effort is normal. No respiratory distress. Breath sounds: Normal breath sounds. No wheezing. Abdominal: Comments: No asterixis. Musculoskeletal: Right lower leg: Edema present. Left lower leg: No edema. Skin: General: Skin is warm and dry. Neurological: Mental Status: She is alert. documented in this encounter Nursing Notes * RICK Glass - 03/11/2023 1:44 PM EDT The patient has been properly identified by confirmation of name and date of . Chief Complaint Patient presents with Hospital Follow-Up Pt present for hospital follow up. Pt states she still has swelling in her feet and has a sore on lower L leg. documented in this encounter Plan of Treatment Upcoming Encounters Date Type Department Care Team (Late st Contact Info) Description 04/02/2023 11:00 AM EST Office Visit Hematology/Oncology [facility] [address] [place] [address] Della Zhong CRNP [address] [place] [address] [place] [address] 05/22/2023 3:00 PM EST Office Visit Hepatology, [facility] [address] [place] [address] Aniyah Mora DO [address] [place] [address] 07/16/2023 2:30 PM EST Office Visit Rheumatology [facility] [address] [place], [place] [address] Bishop Quinones CRNP [address] [place], [place] [address] 09/17/2023 2:40 PM EDT Office Visit [facility] [address] [place] [id number] Mark Caal MD [address] [place], [place] [id number] Scheduled Orders Name Type Priority Associated Diagnoses Orde r Schedule HEMOGLOBIN A1C Lab Routine Type 2 diabetes mellitus without complication, without long-term current use of insulin (HCC) Expected: 03/11/2023 (Approximate), Expires: 03/10/2024 Scheduled Procedures Name Priority Associated Diagnoses Date/Ti [...] Albumin/Creatinine Ratio 10/19/2022 10/19/2021 COVID-19 Vaccine ( - season) 2023 03/27/2021, 08/16/2020, 07/19/2020 Influenza [...] D LEVEL ONCE IN A LIFETIME-USE SMARTSET# [id number] Completed 08/30/2022, 11/26/2019, 12/28/2013 Cologuard Discontinued Fecal Occult Blood Test Discontinued GARDASIL-HPV IMMUNIZATION SERIES Aged Out No longer eligible based on patient's age to complete this topic MENINGOCOCCAL (MENACTRA/MENVEO) Aged Out No longer eligible based on patient's age to complete this topic Sigmoidoscopy Discontinued documented as of this encounter Medical Devices Implanted Type Area Locator Device Identifier Shelf Expiration Date Model / Serial / Lot Surface Articular - [id number] Implanted:Qty: 1 on 09/15/[address] [facility] Right: Knee [employer] 04/19/2015 00-5994-03 0-20 / / [id number] Clip Quick 2.8mm 230cm - [id number] Implanted:Qty: 1 on 07/25/2021 by Lisa Sullivan MD at ENDOSCOPY [facility] Colon [employer] 09/17/2023 [id number]-[id number] / / [id number] documented as of this encounter Visit Diagnoses Diagnosis Hepatic cirrhosis, unspecified hepatic cirrhosis type, unspecified whether ascites present (HCC)- Primary Portal hypertension (HCC) Portal hypertension Heart failure, unspecified HF chronicity, unspecified heart failure type (HCC) Primary open-angle glaucoma, bilateral, mild stage Type 2 diabetes mellitus without complication, without long-term current use of insulin (HCC) COPD, group B, by GOLD 2017 classification (HCC) Hospital discharge follow-up Other follow-up examination documented in this encounter Advance Directives Documents on File Type Date Recorded Patient Language Path Expl anation Advance Directives and Living Will [...] the patient have Health Care Power of Consultant Education? No Care Teams Battery Charger Tester Relationship Specialty Start Date End Date Mark Caal MD [address] [place] [address] PCP - General Family Medicine 07/21/18 documented as of this encounter
--- OUTSIDE RECORDS SUMMARY | 2023-03-29 07:13 | External Medical Summary | Summary of Care ---
Author Name Unknown Organization [facility] Address [address] [place] [address] Phone [phone] Care Team Providers Care Diesel Locomotive Crane Operator Name Role Phone Mark Caal MD Primary Care Provider [phone]- [phone] Reason for Visit * Reason Comments Outpatient Testing Encounter Details Date Type Department Care Team (Latest Contact Info) Description 03/14/2023 1:30 PM EDT Laboratory Laboratory, [facility] [address] [place] [address] [facility] [address] [place] [address] Type II diabetes mellitus with peripheral circulatory disorder (HCC); Hypertension, unspecified type; Hepatic cirrhosis, unspecified hepatic cirrhosis type, unspecified whether ascites present (HCC); Anemia due to chronic blood loss; Personal history of other malignant neoplasm of skin; Liver cirrhosis secondary to nonalcoholic steatohepatitis (ADRIAN) (HCC); Cirrhosis of liver with ascites, unspecified hepatic cirrhosis type ; Other ascites; Type 2 diabetes mellitus without complication, without long-term current use of insulin (HCC) Allergies Active Allergy Reactions Criticality Noted Date [...] as of this encounter (statuses as of 03/14/2023) Medications Medication Sig Dispensed Refills Start Date [...] as of this encounter (statuses as of 03/14/2023) Active Problems Problem Noted Date Diagnosed Date [...] as of this encounter (statuses as of 03/14/2023) Resolved Problems Problem Noted Date Diagnosed Date [...] as of this encounter (statuses as of 03/14/2023) Immunizations Name Administration Dates Next Due COVID-19 mRNA, LNP-s, No Pre serve, 2-Dose Series ([email or web address]) 03/27/2021,08/16/2020,07/19/2020 Pneumococcal Conjugate Vacc, 13 Valent (Prevnar) [...] 04/02/2023 11:00 AM EST Office Visit Hematology/Oncology [facility] [address] [place] [address] Della Zhong CRNP [address] [facility] [place] [id number] 05/22/2023 3:00 PM EST Office Visit Hepatology, [facility] [address] [place] [address] Aniyah Mora DO [address] [place] [address] 07/16/2023 2:30 PM EST Office Visit Rheumatology [facility] [address] [place] [address] Bishop Quinones CRNP [address] [place] [address] 09/17/2023 2:40 PM EDT Office Visit [facility] [address] [place] [id number] Mark Caal MD [address] [place] [address] Pending Results Name Type Priority Associated Diagnoses Date /Time ALBUMIN / CREATININE RATIO, URINE Lab Routine Hypertension, unspecified type 03/14/2023 1:55 PM EDT Scheduled Orders Name Type Priority Associated Diagnoses Orde r Schedule CBC Lab Routine Hepatic cirrhosis, unspecified hepatic cirrhosis type, unspecified whether ascites present (HCC) Anemia due to chronic blood loss Personal history of other malignant neoplasm of skin Ordered: 03/14/2023 DIFFERENTIAL, AUTOMATED Lab Routine Hepatic cirrhosis, unspecified hepatic cirrhosis type, unspecified whether ascites present (HCC) Anemia due to chronic blood loss Personal history of other malignant neoplasm of skin Ordered: 03/14/2023 Scheduled Procedures Name Priority Associated Diagnoses Date/Ti [...] D LEVEL ONCE IN A LIFETIME-USE SMARTSET# [id number] Completed 08/30/2022, 11/26/2019, 12/28/2013 Cologuard Discontinued Fecal Occult Blood Test Discontinued GARDASIL-HPV IMMUNIZATION SERIES Aged Out No longer eligible based on patient's age to complete this topic MENINGOCOCCAL (MENACTRA/MENVEO) Aged Out No longer eligible based on patient's age to complete this topic Sigmoidoscopy Discontinued documented as of this encounter Medical Devices Implanted Type Area Veneer Drier Tailer Device Identifier Shelf Expiration Date Model / Serial / Lot Surface Articular - [id number] Implanted:Qty: 1 on 09/15/2009 at [place] [facility] [place] Right: Knee [employer] 04/19/2015 [id number]- / [id number] Clip Quick 2.8mm 230cm - [id number] Implanted:Qty: 1 on 07/25/2021 by Lisa Sullivan MD at ENDOSCOPY [facility] Colon [employer] 09/17/2023 [id number] / [id number] documented as of this encounter Visit Diagnoses Diagnosis Type II diabetes mellitus with peripheral circulatory disorder (HCC) Type II or unspecified type diabetes mellitus with peripheral circulatory disorders, not stated as uncontrolled Hypertension, unspecified type Hepatic cirrhosis, unspecified hepatic cirrhosis type, unspecified whether ascites present (HCC) Anemia due to chronic blood loss Iron deficiency anemia secondary to blood loss (chronic) Personal history of other malignant neoplasm of skin Liver cirrhosis secondary to nonalcoholic steatohepatitis (ADRIAN) (HCC) Cirrhosis of liver with ascites, unspecified hepatic cirrhosis type Other ascites Type 2 diabetes mellitus without complication, without long-term current use of insulin (HCC) documented in this encounter Advance Directives Documents on File Type Date Recorded Patient Automation Control Integrator Expl anation Advance Directives and Living Will [...] the patient have Health Care Power of Wrap Knitting Machine Operator? No Care Teams Diesel Locomotive Crane Operator Relationship Specialty Start Date End Date Mark Caal MD [address] [facility] [address] PCP - General Family Medicine 07/21/18 documented as of this encounter
--- OUTSIDE RECORDS SUMMARY | 2023-03-29 07:14 | External Medical Summary | Summary of Care ---
Author Name Unknown Organization [facility] Address [address] [facility] [address] Phone [phone] Care Team Providers Care Byproducts Maker Name Role Phone Mark Caal MD Primary Care Provider [phone]- [phone] Reason for Visit * Reason Comments eRx-Medication Refill Encounter Details Date Type Department Care Team Description 01/26/2023 Refill Gastroenterology, [facility] [address] [place] [address] Pedro Zhong CRNP [address] [place] [address] Allergies Active Allergy Reactions Severity Noted Date [...] as of this encounter (statuses as of 01/29/2023) Medications Medication Sig Dispensed Refills Start Date End Date Status latanoprost (XALATAN) 0.005 % ophthalmic solution Instill 1 Drop into both eyes at bedtime. 0 Active Psyllium 51.7 % Oral Packet 1 Dose 3 times a day as needed. 0 Active Calcium Carbonate-Vitamin D 600-400 MG-UNIT per chew tabletIndications :Malignant neoplasm of left breast in female, estrogen receptor positive, unspecified site of breast (HCC) Take 1 Tab by mouth 2 times [...] hours as needed for Wheezing. 72 mL 02/01/2022 Active Pantoprazole Sodium 40 MG Oral Tablet Delayed Release (Protonix) Take by mouth 1 Tablet in the morning. 90 Tablet 3 02/01/2022 Active Furosemide 20 MG Oral Tablet (Lasix) TAKE 1 TABLET BY MOUTH EVERY DAY IN THE MORNING 90 Tablet 2 07/27/2022 Active Levalbuterol Tartrate 45 MCG/ACT Inhalation Aerosol [...] THE MORNING 90 Tablet 3 01/29/2023 Active Spironolactone 50 MG Oral Tablet (Aldactone) Take 1 Tablet (50 mg) by mouth in the morning. 90 Tablet 2 04/02/2022 01/30/20 23 Discontinued documented as of this encounter (statuses as of 01/29/2023) Active Problems Problem Noted Date COPD, group [...] as of this encounter (statuses as of 01/29/2023) Resolved Problems Problem Noted Date Resolved Date [...] as of this encounter (statuses as of 01/29/2023) Immunizations Name Administration Dates Next Due COVID-19 mRNA, LNP-s, No Pre serve, 2-Dose Series ([employer]) 03/27/2021,08/16/2020,07/19/2020 Pneumococcal Conjugate Vacc, 13 Valent (Prevnar) 06/07/2017 Pneumococcal Polysaccharide PPV23 (Pneumovax) 11/21/2018,09/18/2011 Seasonal Influenza, PF, 6 mo ns & Above, IM , (Flulaval) 05/19/2018,06/07/2017 Seasonal Influenza, Quadriva lent Hd (Fluzone [...] encounter Miscellaneous Notes * Telephone Encounter - Daniel Mancilla MD - 01/29/2023 4:45 PM EDTSigned Prescriptions: Disp Refills Spironolactone 50 MG Oral Tablet (Aldacton*90 Tab*3 Sig: TAKE 1 TABLET BY MOUTH EVERY DAY IN THE MORNING Authorizing Provider: DANIEL MANCILLA * Telephone Encounter - Marlee Newman RN - 01/29/2023 8:44 AM EDTPending Prescriptions: Disp Refills Spironolactone 50 MG Oral Tablet (Aldacton*90 Tab*3 Sig: TAKE 1 TABLET BY MOUTH EVERY DAY IN THE MORNING * Telephone Encounter - Ernestina Delgado [facility] - 01/28/2023 11:34 AM EDTPending Prescriptions: Disp Refills Spironolactone 50 MG Oral Tablet (Aldacton*90 Tab*3 Sig: TAKE 1 TABLET BY MOUTH EVERY DAY IN THE MORNING * Telephone Encounter - Ernestina Delgado [facility] - 01/28/2023 11:33 AM EDT Pending Prescriptions: Disp Refills Spironolactone 50 MG Oral Tablet (Aldacto*90 Tab*3 Sig: TAKE 1 TABLET BY MOUTH EVERY DAY IN THE MORNING Last Visit: 12/04/2022 (in office), 04/29/2020 (telemedicine) Next Visit: Visit date not found If no future appointments scheduled, and last appointment is greater than a year ago, please schedule patient for a follow-up appointment Pharmacy: [id number] [address] [place] [address] Is this request for a controlled substance? No Urine Drug Screen:No results found. However, due [...] Encounters Date Type Specialty Care Team Description 03/18/2023 Office Visit Hematology Oncology Alexander Harrell MD [address] [place] [address] 05/22/2023 Office Visit Gastroenterology Aniyah Mora DO [address] [place] [address] 07/16/2023 Office Visit Rheumatology Bishop Quinones CRNP [facility] [place] [address] 07/17/2023 Office Visit Rheumatology Theresa Marshall PA-C Scheduled Procedures Name Priority Associated Diagnoses Date/Ti me ESOPHAGOGASTRODUODENOSCOPY ( EGD), FLEXIBLE, TRANSORAL, DIAGNOSTIC Recall Esophageal varices (HCC) COLONOSCOPY FLEXIBLE PROXIMAL DIAGNOSTIC Recall History of colon polyps Health Maintenance Due Date Last Done Comments Alpha-1 Antitrypsin 02/05/1970 DIABETES-EYE EXAM 02/05/1970 Diabetic Foot Exam 02/05/1970 Hepatitis B (1 of 3 - Risk 3-dose series) 2012 Zoster Vaccines (2 of 3) 12/27/2013 11/01/2013 COVID-19 Vaccine (4 - Pfizer series) 05/22/2021 03/27/2021, 08/16/2020, 07/19/2020 Albumin/Creatinine Ratio 10/19/2022 10/19/2021 Influenza Vaccine (FLU shot) (#1) 2023 04/02/2022, [...] 01/29/2027 01/29/2022, 10/18, 09/20/2008, Additional history exists Pneumococcal Vaccine: 65+ Years Completed 11/21/2018, 06/07/2017, 09/18/2011 Colonoscopy Discontinued 07/25/2021, 03/0 12/2021, 08/18/2018, Additional history exists Colorectal Cancer Screening Discontinued VITAMIN D LEVEL ONCE IN A LIFETIME-USE SMARTSET# [id number] Completed 08/30/2022, 11/26/2019, 12/28/2013 Cologuard Discontinued Fecal Occult Blood Test Discontinued GARDASIL-HPV IMMUNIZATION SERIES Aged Out No longer eligible based on patient's age to complete this topic MENINGOCOCCAL (MENACTRA/MENVEO) Aged Out No longer eligible based on patient's age to complete this topic Sigmoidoscopy Discontinued documented as of this encounter Medical Devices Implanted Type Area Service Attendant Device Identifier Shelf Expiration Date Model / Serial / Lot Surface Articular - [id number] Implanted:Qty: 1 on 09/15/2009 at OR [facility] [place] Right: Knee [employer] 04/19/2015 [id number] 0-20 / / [id number] Clip Quick 2.8mm 230cm - [id number] Implanted:Qty: 1 on 07/25/2021 by Lisa Sullivan MD at ENDOSCOPY [facility] Colon [employer] 09/17/2023 [id number] / / [id number] documented as of this encounter Advance Directives Documents on File Type Date Recorded Patient Foster Care Worker Expl anation Advance Directives and Living Will [...] the patient have Health Care Power of Nursing Program Coordinator? No Care Teams Byproducts Maker Relationship Specialty Start Date End Date Mark Caal MD [address] [place] [id number] PCP - General Family Medicine 07/21/18 documented as of this encounter
--- OUTSIDE RECORDS SUMMARY | 2023-03-29 07:14 | External Medical Summary | Summary of Care ---
Author Name Unknown Organization [facility] Address [address] [place] [address] Phone [phone] Care Team Providers Care Healthcare Or Medical Name Role Phone Mark Caal MD Primary Care Provider [phone]- [phone] Reason for Visit * Reason Comments Emergency Department Follow-Up Encounter Details Date Type Department Care Team Description 02/25/2023 Office Visit [facility] [address] [place] [address] Arjun Morrison MD [address] [place] [address] Cirrhosis of liver with ascites, unspecified hepatic cirrhosis type *; Risk and functional assessment; Leg edema; COPD, group B, by GOLD 2017 classification (HCC); SOB (shortness of breath); Portal hypertension (HCC); Type 2 diabetes mellitus without complication, without long-term current use of insulin (HCC) Allergies Active Allergy Reactions Severity Noted Date [...] as of this encounter (statuses as of 02/25/2023) Medications Medication Sig Dispensed Refills Start Date [...] THE MORNING 90 Tablet 3 02/21/2023 Active Torsemide 40 MG Oral Tablet Take 40 mg by mouth in the morning. 30 Tablet 5 02/25/2023 Active documented as of this encounter (statuses as of 02/25/2023) Active Problems Problem Noted Date COPD, group [...] as of this encounter (statuses as of 02/25/2023) Resolved Problems Problem Noted Date Resolved Date [...] as of this encounter (statuses as of 02/25/2023) Immunizations Name Administration Dates Next Due COVID-19 mRNA, LNP-s, No Pre serve, 2-Dose Series ([place]) 03/27/2021,08/16/2020,07/19/2020 Pneumococcal Conjugate Vacc, 13 Valent (Prevnar) [...] Sign Reading Time Taken Comments Blood Pressure 128/64 02/25/2023 1:34 PM EDT Pulse 104 02/25/2023 1:34 PM EDT Temperature 37.1 C (98.8 F) 02/25/2023 1:34 PM ED T Respiratory Rate 18 02/25/2023 1:34 PM EDT Oxygen Saturation 98% 02/25/2023 1:34 PM EDT Inhaled Oxygen Concentration - - Weight 78.5 kg (173 lb) 02/25/2023 1:34 PM EDT Height - - Body Mass Index 32.71 09/07/2022 7:09 AM EDT documented in this [...] No 09/09/2020 documented as of this encounter Patient Instructions * Patient Instructions* Fe Brambila LPN - 02/25/2023 1:39 PM EDT Patient Instructions - Fall Prevention (This education is for all patients over 65 regardless of symptoms) Remember to take your current medications as prescribed. In order to prevent falls, you are encouraged to: Exercise Utilize assistive/adaptive devices Avoid multifocal lenses when walking Avoid hazards in home Maintain a regular toileting schedule Any questions please contact our office. Preventing Falls in the Home (This education is for all patients over 65 regardless of symptoms) As you get older, falls are more likely. Thats because your reaction time slows. Your muscles and joints may also get stiffer, making them less flexible. Illness, medications, and vision changes can also affect your balance. A fall could leave you unable to live on your own. To make your home safer, follow these tips: Floors Put nonskid pads under area rugs Remove throw rugs Replace worn floor coverings Tack carpets firmly to each step on carpeted stairs. Put nonskid strips on the edges of uncarpeted stairs Keep floors and stairs free of clutter and cords Arrange furniture so there are clear pathways Clean up any spills right away Bathrooms Install grab bars in the tub or shower Apply nonskid strips or put a nonskid rubber mat in the tub or shower Sit on a bath chair to bathe Use bathmats with nonskid backing Lighting Keep a flashlight in each room Put a nightlight along the pathway between the bedroom and the bathroom Jaz Patient Education Copyright 2008 - 2010 Jaz except where otherwise noted Preventing Falls: Exercises to Improve Balance, Flexibility, Strength, and Staying Power (This education is for all patients over 65 regardless of symptoms) Certain types of exercises may help make you less likely to fall. Try the ones below. Or do other exercises that your healthcare provider suggests. Depending on your health, you may need to start slowly. Dont let that stop you. Even small amounts of exercise can help you. Be sure to talk to yourhealthcare provider before starting any exercise program. Improve Balance Many types of exercise can help improve balance. Phani chi and yoga are good examples. Heres another one to try. You can do it anytime and almost anywhere. Stand next to a counter or solid support. Push yourself up onto your tiptoes. Hold for 5 seconds. If you start to lose your balance, hold on to the counter. Rest and repeat 5 times. Work up to holding for 20 to 30 seconds, if you can. Increase Flexibility Being more flexible makes it easier for you to move around safely. Try exercises like the seated hamstring stretch. Sit in a chair and put one foot on a stool. Straighten your leg and reach with both hands down either side of your leg. Reach as far down your leg as you can. Hold for about 20 seconds. Go back to the starting position. Then repeat 5 times. Switch legs. Build Strength Resistance exercises help build strength. You can do them without equipment. Or you can use weights, elastic bands, or special machines. One such exercise is called the biceps curl. You can hold a 1 pound weight or even a can of soup. Do this exercise at least 3 times a week. Strive for everyday. Sit up straight in a chair. Keep your elbow close to your body and your wrist straight. Bend your arm, moving your hand up to your shoulder. Then slowly lower your arm. Repeat 5 times. Switch to the other arm. Build Your Staying Power Aerobic exercises make your heart and lungs stronger so you can keep moving longer. Walking and swimming are two of the best types of exercises you can do. Using a stationary bike is great, too. Find an aerobic exercise that you enjoy. Start slowly and build up. Even 5 minutes is helpful. Aimfor a goal of 30 minutes, at least 3 times a week. You dont have to do 30 minutes in one session. Break it up and walk a little throughout the day. More Helpful Tips Start easy. Slowly work up to doing more. Talk with your healthcare provider about the best exercises for you. Call senior centers or health clubs about exercise programs. If needed, have a family member watch you walk every so often to check your stability. Exercise with a friend. Choose an activity you both enjoy. Try exercises that you can do anytime, anywhere. Here are two examples. Have someone with you when you first try these: Practice walking by placing one foot right in front of the other. Stand up and sit down 10 times. Repeat this throughout the day. [email or web address].com.au Patient Education Copyright 2008 [email or web address].com.au except where otherwise noted. Preventing Falls: Moving Safely Using a Cane or Walker (This education is for all patients over 65 regardless of symptoms) Keep the cane away from your feet so you dont trip. A walking aid, such as a cane or walker, can help you stay more independent and avoid falls. Remember to keep your walking aid within easy reach when youre in a chair or in bed. And learn how to use it safely so you dont injure yourself. Using a Cane If you have a stronger side, hold the cane on that side. Get your balance. Move the cane and your weaker leg forward. Support your weight on both the cane and your weaker side. Step with your stronger leg. Start again from step 1. If youre using a folding walker, be sure you know how to lock it open. Check that its locked open before each use. Using a Walker Roll the walker (or lift it, if youre using one without wheels) forward about 12 inches. Step forward with your weaker leg first. Use the walker to help keep your balance. Bring your other foot forward to the center of the walker. Start again from step 1. Helpful Tips Check with your healthcare provider about the right walking aid to use. Ask about a walker with a seat attached. Check the tips of your cane or walker to make sure they have nonskid covers. Move slowly from room to room. Dont angelo. Sit down to get dressed. Use a shaila pack or backpack to keep your hands free. Get help for jobs that mean climbing, even on a stepstool. [email or web address].[email or web address].au Patient Education Copyright 2008 - 2010 [email or web address].com.au except where otherwise noted. Urinary Incontinence Plan of Care Documentation: (This education is for all patients over 65 regardless of symptoms) Current medications reconciled. Patient encouraged to: Practice kegal exercises Provide education materials Use the restroom every 2 hours throughout the day Limit caffeine, alcohol, spicy foods and acidic foods Keep a bladder diary Limit fluid intake 3-4 hours before bed Lose weight Prevent constipation Take fluid pills at a time when you can get to the bathroom quickly Control sugar better if diabetic Limit fluid intake to 60 oz. per day Wear support stockings (TEDs)if you have edema Fe Brambila LPN 02/25/2023 Kegel Exercises Kegel exercises dont require special clothing or equipment. Theyre easy to learn and simple to do. And if you do them right, no one can tell youre doing them, so they can be done almost anywhere. Your doctor, nurse, or physical therapist can answer any questions you have and help you get started. A Weak Pelvic Floor The pelvic floor muscles may weaken due to aging, and vaginal childbirth, injury, surgery, chronic cough, or lack of exercise. If the pelvic floor is weak, your bladder and other pelvic organs may sag out of place. The urethra may also open too easily and allow urine to leak out. Kegel exercises can help you strengthen your pelvic floor muscles so they can better support the pelvic organs and control urine flow. How Kegel Exercises Are Done Try each of the Kegel exercises described below. When youre doing them, try not to move your leg, buttock, or stomach muscles. While youre urinating, try to stop the flow of urine. Start and stop it as often as you can. Contract as if you were stopping your urine stream, but do it when youre not urinating. Tighten your rectum as if trying not to pass gas. Contract your anus, but dont move your buttocks. Helpful Hints Do your Kegels as often as you can. The more you do them, the faster youll feel the results. Pick an activity you do often as a reminder. For instance, do your Kegels every time you sit down. Tighten your pelvic floor before you sneeze, get up from a chair, cough, laugh, or lift. This protects your pelvic floor from injury and can help prevent urine leakage. Try to hold each Kegel for a slow count to five. You probably wont be able to hold them for thatlong at first, but keep practicing. It will get easier as your pelvic floor gets stronger. Eventually, special weights that you place in your vagina may be recommended to help make your Kegels even more effective. Jaz Patient Education Copyright 2009 - 2010 Jaz except where otherwise noted. Here are some helpful tips for your urinary incontinence: (This education is for all patients over 65 regardless of symptoms) Practice Kegel exercises Use the restroom every 2 hours throughout the day Limit caffeine, alcohol, spicy foods, and acidic foods Keep a bladder diary Limit fluid intake 3-4 hours before bed Lose weight Prevent constipation Take fluid pills at a time when can get to the bathroom quickly Control sugar better if diabetic Limit fluid intake to 60 oz. per day Any questions, please feel free to contact our office. documented in this encounter Progress Notes * Arjun Morrison MD - 02/25/2023 2:02 PM EDT Subjective Juli Knapp is a 73 year old female. Chief Complaint Patient presents with Emergency Department Follow-Up HPI: Here for ER visit f/u Known liver cirrhosis, portal HTN, hx of eso varices Progressing legs swelling last 2 mo And noticed abd swelling last week In ER, had extensive tests blood, CT abd Which showed moderate ascites but no sign of infection , CHF, renal failure Albumin 3, INR 1.2 , no mental status change No hypoNa , normal kidney function Has been on lasix 20 mg + spironolactone 50 mg Had increased lasix to 40 mg but no change in leg swelling, abd swelling currenlty Will switch to torsemide 40 mg from today And will f/u blood test on [place] But if no improvement , will need paracentesis Fu with GI/hepatology but no appointment soon Known HTN, COPD, - stable Type 2 DM , well controlled, hba1c less than 6 PMH: Patient Active Problem List Diagnosis Code Gastroesophageal reflux disease without esophagitis K21.9 Knee joint replacement status Z96.659 Moderate persistent asthma, uncomplicated J45.40 High risk for fracture due to osteoporosis by DEXA scan M81.0 Personal history of other malignant neoplasm of skin Z85.828 Gait disturbance R26.9 Essential tremor G25.0 Cirrhosis of liver (HCC) K74.60 Ventral hernia K43.9 Portal hypertension (HCC) K76.6 Paroxysmal atrial tachycardia I47.19 HTN, goal below 140/90 I10 Nontoxic goiter, unspecified E04.9 Post-operative state Z98.890 S/P lumbar laminectomy Z98.890 Type 2 diabetes mellitus without complication ([facility]) E11.9 Hyperlipidemia E78.5 Secondary esophageal varices without bleeding ([facility]) I85.10 Type II diabetes mellitus with peripheral circulatory disorder (HCC) E11.51 Anemia due to chronic blood loss D50.0 COPD, group B, by GOLD 2017 classification ([facility]) J44.9 Current Outpatient Medications Medication Sig Dispense Refill amLODIPine Besylate 10 MG Oral Tablet (Norvasc) daily. Torsemide 40 MG Oral Tablet Take 40 mg by mouth in the morning. 30 Tablet 5 latanoprost (XALATAN) 0.005 % ophthalmic solution Instill 1 Drop into both eyes at bedtime. Psyllium 51.7 % Oral Packet 1 Dose 3 times a day as needed. Calcium Carbonate-Vitamin D 600-400 MG-UNIT per chew tablet Take 1 Tab by mouth 2 times a day. 60 Tab 6 Milk Thistle 175 MG CAPS Take by mouth 1 Capsule daily . Docusate Sodium 100 MG Oral Capsule Take 1 Capsule by mouth 3 times a day as needed. Acetaminophen ER 650 MG Oral Tablet Extended Release Take 1 Tablet by mouth every 8 hours as needed. Meclizine HCl 12.5 MG Oral Tablet (Antivert) Take 1 Tablet by mouth 3 times a day as needed. (Patient not taking: Reported on 07/31/2022) Cinnamon 500 MG Oral Capsule Take 2 Capsules by mouth in the morning and 2 Capsules at noon and 2 Capsules before bedtime. Garlic 100 MG Oral Tablet Take 10 Tablets by mouth in the morning and 10 Tablets before bedtime. Restasis 0.05 % Ophthalmic Emulsion Instill 1 Drop into both eyes in the morning. Probiotic 250 MG Oral Capsule Take by mouth . culturalle probiotic - guaiFENesin 100 MG/5ML Oral Liquid (Robitussin) Take 10 mL by mouth every 6 hours as needed. Fexofenadine HCl 180 MG Oral Tablet (Giana) Take by mouth 1 Tablet daily as needed for Allergies.(Patient not taking: Reported on 07/31/2022) 30 Tablet 11 Levalbuterol HCl 1.25 MG/3ML Inhalation Nebulization Solution (Xopenex) Inhale via nebulizer 1 Ampule every 4 hours as needed for Wheezing. 72 mL 12 Furosemide 20 MG Oral Tablet (Lasix) TAKE 1 TABLET BY MOUTH EVERY DAY IN THE MORNING (Patient taking differently: 2 Tablets in the morning.) 90 Tablet 2 Levalbuterol Tartrate 45 MCG/ACT Inhalation Aerosol (Xopenex HFA) Inhale 1 Puff by mouth every 4 hours as needed for Wheezing. 45 g 1 Fluticasone Propionate HFA 110 MCG/ACT Inhalation Aerosol (Flovent HFA) Inhale 2 Puffs by mouth in the morning and 2 Puffs before bedtime. 36 g 1 Sucralfate 1 GM/10ML Oral Suspension (Carafate) PLEASE SEE ATTACHED FOR DETAILED DIRECTIONS Famotidine 20 MG Oral Tablet (Pepcid) Take 1 Tablet by mouth in the morning and 1 Tablet in the evening. Montelukast Sodium 10 MG Oral Tablet (Singulair) TAKE 1 TABLET BY MOUTH EVERY DAY IN THE MORNING 100 Tablet 2 Spironolactone 50 MG Oral Tablet (Aldactone) TAKE 1 TABLET BY MOUTH EVERY DAY IN THE MORNING 90 Tablet 3 Pantoprazole Sodium 40 MG Oral Tablet Delayed Release (Protonix) TAKE 1 TABLET BY MOUTH EVERY DAY IN THE MORNING 90 Tablet 3 No current facility-administered medications for this visit. 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 Hypertension Knee joint replacement status 05/24/2009 Myalgia and myositis Obesity, Class I, BMI 30.0-34.9 (see actual BMI) 07/03/2013 Other specified intestinal obstruction(560.89) 06/20/2006 Other ventral hernia without mention of obstruction or gangrene Personal history of radiation therapy 2018 Sinus tachycardia 04/25 put on metoprolol Status asthmaticus, allergic Past Surgical History: Procedure Laterality Date ANESTH, UPPER ABDOMEN HERNIA REPAIR 12/1998 ARTHROPLASTY KNEE TOTAL 2006 TKR (Total Knee Replacement), right BREAST BIOPSY Left 10/16/2017 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, 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 BX LYMPH NODE DEEP AXIL Left 10/16/2017 BIOPSY LYMPH NODE DEEP AXILLARY OPEN performed by Denise Singh MD at OR [facility] COLONOSCOPY 03/28/2011 COLONOSCOPY, DIAGNOSTIC (RECTUM) 12/10/2017 TVA polyp, repeat 6 mo/COLONOSCOPY FLEXIBLE PROXIMAL DIAGNOSTIC performed by Lisa Sullivan MD at ENDOSCOPY [facility] COLONOSCOPY, DIAGNOSTIC (RECTUM) 08/18/2018 diverticulosis, flex sig 1 yr/COLONOSCOPY FLEXIBLE PROXIMAL DIAGNOSTIC performed by Lisa Sullivan MD at ENDOSCOPY [facility] COLONOSCOPY, DIAGNOSTIC (RECTUM) 07/25/2021 adenomatous & hyperplastic polyps, repeat 3 yrs / COLONOSCOPY FLEXIBLE PROXIMAL DIAGNOSTIC performed by Lisa Sullivan MD at ENDOSCOPY [facility] EGD, FLEXIBLE, DIAGNOSTIC 11/11/2018 esophageal varices, portal hypertensive gastropathy, repeat 6 wks/ESOPHAGOGASTRODUODENOSCOPY (EGD),FLEXIBLE, TRANSORAL, DIAGNOSTIC performed by Lisa Sullivan MD at ENDOSCOPY [facility] EGD, FLEXIBLE, DIAGNOSTIC 01/26/2019 esophageal varices, portal hypertensive gastropathy, repeat 6 wks/[facility] EGD, FLEXIBLE, DIAGNOSTIC 03/23/2019 benign hyperplastic gastric polyp / [facility] EGD, FLEXIBLE, DIAGNOSTIC 01/26/2019 eso varices, repeat 6 wks/[facility] EGD, FLEXIBLE, DIAGNOSTIC 08/25/2019 portal hypertensive gastropathy, repeat 1 yr / ESOPHAGOGASTRODUODENOSCOPY (EGD), FLEXIBLE, TRANSORAL, DIAGNOSTIC performed by Lisa Sullivan MD at ENDOSCOPY [facility] EGD, FLEXIBLE, DIAGNOSTIC 07/25/2021 Portal hypertensive gastropathy, sm eso varices, repeat 6 mo / ESOPHAGOGASTRODUODENOSCOPY (EGD), FLEXIBLE, TRANSORAL, DIAGNOSTIC performed by Lisa Sullivan MD at ENDOSCOPY [facility] EGD, FLEXIBLE, DIAGNOSTIC N/A 09/07/2022 small hiatal hernia/grade I esophageal varices/portal hypertensive gastropathy/recall 1 year/ESOPHAGOGASTRODUODENOSCOPY (EGD), FLEXIBLE, TRANSORAL, DIAGNOSTIC performed by Lisa Sullivan MD at [facility] IDENTIFY SENTINEL NODE, RADIOACTIVE TRACER Left 10/16/2017 INJECTION PROCEDURE FOR IDENTIFICATION SENTINEL NODE performed by Denise Singh MD at OR [facility] SIDNEY FLEX SIGMOID DIAGNOSITIC 08/25/2019 normal, repeat 1 yr / SIGMOIDOSCOPY FLEXIBLE DIAGNOSTIC performed by Lisa Sullivan MD at ENDOSCOPY [facility] KNEE ARTHROSCOPY/MENISCECTOMY Left 07/08/2019 ARTHROSCOPY KNEE MEDIAL OR LATERAL MENISCECTOMY performed by Dahiana Madrid DO at [facility] MASTECTOMY, PARTIAL Left 10/16/2017 10/16/2017 MASTECTOMY PARTIAL performed by Denise Singh MD at OR [facility] PARTIAL HYSTERECTOMY 1983 REDUCTION OF BREAST Bilateral 1998 REMOVAL OF BOWEL LESION(S) 01/1998 diverticulitis REMOVAL OF OVARY/OVIDUCT(S) 1984 REMOVE ADDED SPINE LAMINA, 1 SEG N/A 09/09/2020 LAMINECTOMY FACETECTOMY AND FORAMINOTOMY ADDITIONAL LEVELS performed by Rg Stewart MD at OR [facility] REMOVE GALLBLADDER REMOVE LUMBAR SPINE LAMINA, 1 SEG N/A 09/09/2020 LAMINECTOMY FACETECTOMY AND FORAMINOTOMY LUMBAR performed by Rg Stewart MD at OR [facility] REMOVE TONSILS & ADENOIDS, UNDER 12 T & A, age<12 REPAIR BOWEL-BLADDER FISTULA 07/1998 REPAIR INITIAL INCISIONAL HERNIA 08/1999 REPAIR OF NASAL SEPTUM 2010 Nasal Septum Repair REVISE KNEE JOINT REPLACEMENT 09/15/2009 TOTAL KNEE REVISION ONE COMPONENT performed by Clem MAYO at [facility] SACROILIAC JOINT INJECT W/GUIDANCE 02/08/2020 INJECTION SACROILIAC JOINT performed by Vahid Rutherford DO at OR [facility] TENDON SHEATH INCISION, FINGER Left 05/10/2015 TRIGGER FINGER RELEASE performed by Shiv Stovall MD at [facility] US GUIDED BREAST BIOPSY LEFT Left 09/26/2017 09/26/2017 left breast core bx at 6:00 dx infiltrating carcinoma , no special type , grade 2 with focal mucinous differentiation Review of patient's allergies indicates: Allergen Reactions Albuterol Other (Please comment) Shakiness; difficulty walking; stuttering Other reaction(s): Hives Cephalexin Hives Other reaction(s): "HEART PALPATIONS" Ibuprofen Rash Other reaction(s): Hives Other Allergy (See Comments) Other reaction(s): DECREASE RESPIRATIONS--RECEIVED NARCAN OPOIDS Tramadol Bad reaction after back surgery- per pt never to take again, needed narcan Other reaction(s): Unknown Azithromycin sob, palpitations Azithromycin Other reaction(s): Unknown Morphine Per patient, does not work Other reaction(s): PT STATES "BUILT UP A TOLERANCE TO MED, DOESN'T WORK". Family History Problem Relation Age of Onset Allergies Sister food allergies Prostate cancer Grandfather (Paternal) 90 metastatic? Other (Gallbladder Cancer) Sister 66 Family Status Relation Status Sis Alive Mo Fa MGMA MGFA PGMA PGFA Sis Social History Socioeconomic History Marital status: Spouse name: Not on file Number of children: Not on file Years of education: Not on file Highest education level: Not on file Occupational History Not on file Tobacco Use Smoking status: Never Smokeless tobacco: Never Vaping Use Vaping Use: Never used Substance and Sexual Activity Alcohol use: No Drug use: No Sexual activity: Not on file Other Topics Concern Not on file Social History Narrative Not on file Social Determinants of Health Financial Resource Strain: Not on file Food Insecurity: Not on file Transportation Needs: Not on file Physical Activity: Not on file Stress: Not on file Social Connections: Not on file Intimate Partner Violence: Not on file Housing Stability: Not on file Review of Systems Constitutional: Positive for fatigue. Negative for activity change, appetite change, chills, diaphoresis, fever and unexpected weight change. Eyes: Negative for visual disturbance. Respiratory: Positive for shortness of breath. Negative for cough, chest tightness and wheezing. Cardiovascular: Positive for leg swelling. Negative for chest pain and palpitations. Gastrointestinal: Positive for abdominal pain. Negative for abdominal distention, constipation, diarrhea, nausea and vomiting. Allergic/Immunologic: Positive for immunocompromised state. Neurological: Positive for weakness (general). Negative for dizziness and light-headedness. Psychiatric/Behavioral: Positive for sleep disturbance. Negative for agitation and behavioral problems. Objective BP 128/64 | Pulse 104 | Temp 37.1 C (98.8 F) (Infrared ) | Resp 18 | Wt 78.5 kg (173 lb) | OnF427% | BMI 32.71 kg/m | BSA 1.84 m Physical Exam Constitutional: General: She is not in acute distress. Appearance: Normal appearance. She is not ill-appearing, toxic-appearing or diaphoretic. HENT: Head: Normocephalic and atraumatic. Nose: Nose normal. Eyes: Extraocular Movements: Extraocular movements intact. Pupils: Pupils are equal, round, and reactive to light. Cardiovascular: Rate and Rhythm: Normal rate and regular rhythm. Pulses: Normal pulses. Heart sounds: Murmur heard. Pulmonary: Effort: Pulmonary effort is normal. No respiratory distress. Breath sounds: Normal breath sounds. No stridor. No wheezing, rhonchi or rales. Chest: Chest wall: No tenderness. Abdominal: General: There is distension. Tenderness: There is abdominal tenderness. There is no guarding or rebound. Musculoskeletal: Right lower leg: Edema present. Left lower leg: Edema present. Neurological: General: No focal deficit present. Mental Status: She is alert and oriented to person, place, and time. Psychiatric: Behavior: Behavior normal. ASSESSMENT/PLAN: Cirrhosis of liver with ascites, unspecified hepatic cirrhosis type (Primary) - COMPREHENSIVE METABOLIC PANEL; Future; Expected date: 02/28/2023 - AMMONIA; Future; Expected date: 02/28/2023 Risk and functional assessment Leg edema COPD, group B, by GOLD 2017 classification (HCC) SOB (shortness of breath) Portal hypertension (HCC) Type 2 diabetes mellitus without complication, without long-term current use of insulin (HCC) Other orders - Torsemide 40 MG Oral Tablet; Take 40 mg by mouth in the morning. Torsemide 40 mg daily Update me on nury F/u blood tests F/u with AMAYA Morrison MD * Fe Brambila LPN - 02/25/2023 1:39 PM EDT Fall Risk Plan of Care Documentation: - Current medications reconciled Patient encouraged to: - Exercise - Provide education materials for Core strengthening - Utilize assistive/adaptive devices - Provide education materials - Avoid multifocal lenses when walking - Avoid hazards in home - Provide education materials - Maintain a regular toileting schedule Fe Brambila LPN 02/25/2023 documented in this encounter Nursing Notes * Fe Brambila LPN - 02/25/2023 1:33 PM EDT The patient has been properly identified by confirmation of name and date of . Chief Complaint Patient presents with Emergency Department Follow-Up [facility] ER 02/21/23 for swelling of lower extremities/abdominal swelling. Lasix was increased from 20mg daily to 40mg daily. States it's not helping. documented in this encounter Plan of Treatment Upcoming Encounters Date Type Specialty Care Team Description 02/28/2023 Laboratory Laboratory [place], Laboratory [address] [place] [address] 03/18/2023 Office Visit Hematology Oncology Alexander Harrell MD [address] [place] [address] 05/22/2023 Office Visit Gastroenterology Aniyah Mora DO [address] [place] [address] 07/16/2023 Office Visit Rheumatology Bishop Quinones CRNP [facility] [place] [employer] [place], [place] [address] Scheduled Orders Name Type Priority Associated Diagnoses Orde r Schedule COMPREHENSIVE METABOLIC PANEL Lab Routine Cirrhosis of liver with ascites, unspecified hepatic cirrhosis type Expected: 02/28/2023 (Approximate), Expires: 02/25/2024 AMMONIA Lab Routine Cirrhosis of liver with ascites, unspecified hepatic cirrhosis type Expected: 02/28/2023, Expires: 02/26/2024 Scheduled Procedures Name Priority Associated [...] D LEVEL ONCE IN A LIFETIME-USE SMARTSET# [id number] Completed 08/30/2022, 11/26/2019, 12/28/2013 Cologuard Discontinued Fecal Occult Blood Test Discontinued GARDASIL-HPV IMMUNIZATION SERIES Aged Out No longer eligible based on patient's age to complete this topic MENINGOCOCCAL (MENACTRA/MENVEO) Aged Out No longer eligible based on patient's age to complete this topic Sigmoidoscopy Discontinued documented as of this encounter Medical Devices Implanted Type Area Stone Rigger Device Identifier Shelf Expiration Date Model / Serial / Lot Surface Articular - [id number] Implanted:Qty: 1 on 09/15/2009 [place] [facility] [place]: Knee [employer] 04/19/2015 00-5994-03 0-20 / / [id number] Clip Quick 2.8mm 230cm - [id number] Implanted:Qty: 1 on 07/25/2021 by Lisa Sullivan MD at ENDOSCOPY [facility] Colon [employer] 09/17/2023 HX-202UR.A / / [id number] documented as of this encounter Visit Diagnoses Diagnosis Cirrhosis of liver with ascites, unspecified hepatic cirrhosis type- Primary Risk and functional assessment Screening for unspecified condition Leg edema Edema COPD, group B, by GOLD 2017 classification (HCC) SOB (shortness of breath) Shortness of breath Portal hypertension (HCC) Portal hypertension Type 2 diabetes mellitus without complication, without long-term current use of insulin (HCC) documented in this encounter Advance Directives Documents on File Type Date Recorded Patient Circular Head Saw Operator Expl anation Advance Directives and Living [...] the patient have Health Care Power of Doctor Of Nursing Practice? No Care Teams Healthcare Or Medical Relationship Specialty Start Date End Date Mark Caal MD [address] [place] [address] PCP - General Family Medicine 07/21/18 documented as of this encounter
--- OUTSIDE RECORDS SUMMARY | 2023-03-29 07:14 | External Medical Summary | Summary of Care ---
Author Name Unknown Organization [facility] Address [address] [place] [address] Phone [phone] Care Team Providers Care Rn Physician Office Name Role Phone Lila Ness MD Primary Care Provider +1- [phone] Reason for Visit * Reason Comments eRx-Medication Refill Encounter Details Date Type Department Care Team Description 02/20/2023 Refill [facility] [address] [place] [address] Lila Ness MD [address] [place] [address] Allergies Active Allergy Reactions Severity Noted Date [...] as of this encounter (statuses as of 02/21/2023) Medications Medication Sig Dispensed Refills Start Date [...] THE MORNING 90 Tablet 3 02/21/2023 Active Pantoprazole Sodium 40 MG Oral Tablet Delayed Release (Protonix) Take by mouth 1 Tablet in the morning. 90 Tablet 3 02/01/2022 02/22/20 23 Discontinued documented as of this encounter (statuses as of 02/21/2023) Active Problems Problem Noted Date COPD, group [...] as of this encounter (statuses as of 02/21/2023) Resolved Problems Problem Noted Date Resolved Date [...] as of this encounter (statuses as of 02/21/2023) Immunizations Name Administration Dates Next Due COVID-19 mRNA, LNP-s, No Pre serve, 2-Dose Series ([employer]ive) 03/27/2021,08/16/2020,07/19/2020 Pneumococcal Conjugate Vacc, 13 Valent (Prevnar) [...] encounter Miscellaneous Notes * Telephone Encounter - Cheo Cuellar, [facility] - 02/21/2023 2:28 AM EDTSigned Prescriptions: Disp Refills Pantoprazole Sodium 40 MG Oral Tablet Love*90 Tab*3 Sig: TAKE 1 TABLET BY MOUTH EVERY DAY IN THE MORNINGAuthorizing Provider: LILA NESS User: CHEO CUELLAR documented in this encounter Plan of Treatment Upcoming Encounters Date Type Specialty Care Team Description 03/18/2023 Office Visit Hematology Oncology Julio Cesar, Alexander Salazar MD [address] [place], [place] [address] 05/22/2023 Office Visit Gastroenterology Aniyah Mora DO [address] [place] [address] 07/16/2023 Office Visit Rheumatology Bishop Quinones CRNP [address] [place], [place] [id number] Scheduled Procedures Name Priority Associated Diagnoses Date/Ti [...] D LEVEL ONCE IN A LIFETIME-USE SMARTSET# [id number] Completed 08/30/2022, 11/26/2019, 12/28/2013 Cologuard Discontinued Fecal Occult Blood Test Discontinued GARDASIL-HPV IMMUNIZATION SERIES Aged Out No longer eligible based on patient's age to complete this topic MENINGOCOCCAL (MENACTRA/MENVEO) Aged Out No longer eligible based on patient's age to complete this topic Sigmoidoscopy Discontinued documented as of this encounter Medical Devices Implanted Type Area Jewelry Bench Worker Device Identifier Shelf Expiration Date Model / Serial / Lot Surface Articular - [id number] Implanted:Qty: 1 on 09/15/2009 [place] [facility] [place] Right: Knee [employer] 04/19/2015 00-5994-03 0-20 / [id number] Clip Quick 2.8mm 230cm - [id number] Implanted:Qty: 1 on 07/25/2021 by Lisa Sullivan MD at ENDOSCOPY [facility] Colon [employer] 09/17/2023 HX-202UR.A / / [id number] documented as of this encounter Advance Directives Documents on File Type Date Recorded Patient Windshield Technician Expl anation Advance Directives and Living Will [...] the patient have Health Care Power of Pbx Installer? No Care Teams Rn Physician Office Relationship Specialty Start Date End Date Lila Ness MD [address] [place] [address] PCP - General Family Medicine 07/21/18 documented as of this encounter
--- OUTSIDE RECORDS SUMMARY | 2023-03-29 07:14 | External Medical Summary | Summary of Care ---
Author Name Unknown Organization [facility] Address [address] [facility] [address] Phone [phone] Care Team Providers Care Architectural Technologist Name Role Phone Mark Caal MD Primary Care Provider +1- [phone] Reason for Visit * Reason Comments eRx-Medication Refill Encounter Details Date Type Department Care Team Description 02/22/2023 Refill Gastroenterology, [facility] [address] [place] [address] Pedro Zhong CRNP [address] [place] [address] Liver cirrhosis secondary to nonalcoholic steatohepatitis (ADRIAN) [...] the medication was ordered: 07/27/2022 Pharmacy: [id number] [id number] [facility] Is this request for a controlled [...] Specialty Care Team Description 02/28/2023 Laboratory Laboratory [place] [address] [place] [facility] [place] [address] 03/18/2023 Office Visit Hematology Oncology Alexander Harrell MD [address] [facility] [place] [address] 05/22/2023 Office Visit Gastroenterology Aniyah Mora DO [address] [place] [address] 07/16/2023 Office Visit Rheumatology Bishop Quinones CRNP [address] [place] [address] Scheduled Orders Name Type Priority Associated Diagnoses [...] Ratio 10/19/2022 10/19/2021 COVID-19 Vaccine (4 - 2022-24 season) 2023 03/27/2021, 08/16/2020, 07/19/2020 Influenza Vaccine [...] Completed 11/21/2018, 06/07/2017, 09/18/2011 Colonoscopy Discontinued 07/25/2021, 03/12/2021, 08/18/2018, Additional history exists Colorectal Cancer Screening Discontinued VITAMIN D LEVEL ONCE IN A LIFETIME-USE SMARTSET# [id number] Completed 08/30/2022, 11/26/2019, 12/28/2013 Cologuard Discontinued Fecal Occult Blood Test Discontinued GARDASIL-HPV IMMUNIZATION SERIES Aged Out No longer eligible based on patient's age to complete this topic MENINGOCOCCAL (MENACTRA/MENVEO) Aged Out No longer eligible based on patient's age to complete this topic Sigmoidoscopy Discontinued documented as of this encounter Medical Devices Implanted Type Area Seat Maker Device Identifier Shelf Expiration Date Model / Serial / Lot Surface Articular - [id number] Implanted:Qty: 1 on 09/15/2009 at [place] [facility] [place] Right: Knee [employer] 04/19/2015 00-5994-03 0-20 / / [id number] Clip Quick 2.8mm 230cm - [id number] Implanted:Qty: 1 on 07/25/2021 by Lisa Sullivan MD at ENDOSCOPY [facility] Colon [employer] 09/17/2023 HX-202UR.A / / [id number] documented as of this encounter Visit Diagnoses Diagnosis Liver cirrhosis secondary to nonalcoholic steatohepatitis (ADRIAN) (HCC)- Primary documented in this encounter Advance Directives Documents on File Type Date Recorded Patient Transmitter Chief Expl anation Advance Directives and Living Will [...] the patient have Health Care Power of Class C Truck Driver? No Care Teams Architectural Technologist Relationship Specialty Start Date End Date Mark Caal MD [address] [place] [address] PCP - General Family Medicine 07/21/18 documented as of this encounter
--- OUTSIDE RECORDS SUMMARY | 2023-03-29 07:14 | External Medical Summary | Summary of Care ---
Author Name Unknown Organization [facility] Address [address] [place] [address] Phone [phone] Care Team Providers Care Pot Filler Name Role Phone Mark Caal MD Primary Care Provider +1- [phone] Reason for Visit * Reason Onset Date Comments Advice 02/22/2023 Encounter Details Date Type Department Care Team Description 02/22/[address] [facility] [address] [place] [address] Mark Caal MD [address] [place] [address] Advice Allergies Active Allergy Reactions [...] mRNA, LNP-s, No Pre serve, 2-Dose Series ([employer]) 03/27/2021,08/16/2020,07/19/2020 Pneumococcal Conjugate Vacc, 13 Valent (Prevnar) [...] encounter Miscellaneous Notes * Telephone Encounter - Arjun Morrison MD [...] Specialty Care Team Description 02/28/2023 Laboratory Laboratory [facility] [address] [place] [address] 03/18/2023 Office Visit Hematology Oncology [facility] [address] [facility] [address] 05/22/2023 Office Visit Gastroenterology Aniyah Mora DO [address] [place] [address] 07/16/2023 Office Visit Rheumatology Bishop Quinones CRNP [address] [facility] [place] [address] Scheduled Procedures Name Priority Associated Diagnoses Date/Ti [...] 12/06/2023 12/05/2021, 0711/2019, 11/18/2017, Additional history exists COLONOSCOPY-EVERY 3 YRS AGES 18-100 07/25/2024 07/25/2021, 07/25/2021, 08/25/2019, Additional history exists Lipid Panel 01/29/2027 01/29/2022, 10/18, 09/20/2008, Additional history exists Hepatitis C Screening Completed 04/08/2018 Pneumococcal Vaccine: 65+ Years Completed 11/21/2018, 06/07/2017, 09/18/2011 Colonoscopy Discontinued 07/25/2021, 12/2021, 08/18/2018, Additional history exists Colorectal Cancer Screening Discontinued VITAMIN D LEVEL ONCE IN A LIFETIME-USE SMARTSET# [id number] Completed 08/30/2022, 11/26/2019, 12/28/2013 Cologuard Discontinued Fecal Occult Blood Test Discontinued GARDASIL-HPV IMMUNIZATION SERIES Aged Out No longer eligible based on patient's age to complete this topic MENINGOCOCCAL (MENACTRA/MENVEO) Aged Out No longer eligible based on patient's age to complete this topic Sigmoidoscopy Discontinued documented as of this encounter Medical Devices Implanted Type Area Scroll Saw Operator Device Identifier Shelf Expiration Date Model / Serial / Lot Surface Articular - [id number] Implanted:Qty: 1 on 09/15/2009 at [place] [facility] [place] Right: Knee [employer] 04/19/2015 00-5994-03 0-20 / / [id number] Clip Quick 2.8mm 230cm - [id number] Implanted:Qty: 1 on 07/25/2021 by Lisa Sullivan MD at ENDOSCOPY [facility] Colon [employer] 09/17/2023 HX-202UR.A / / [id number] documented as of this encounter Advance Directives Documents on File Type Date Recorded Patient Boiler Tenders Supervisor Expl anation Advance Directives and Living Will [...] the patient have Health Care Power of Day Worker? No Care Teams Pot Filler Relationship Specialty Start Date End Date Mark Caal MD [address] [place] [address] PCP - General Family Medicine 07/21/18 documented as of this encounter
--- OUTSIDE RECORDS SUMMARY | 2023-03-29 07:14 | External Medical Summary | Summary of Care ---
Author Name Unknown Organization [facility] Address [address] [place] [address] Phone [phone] Care Team Providers Care Brick Setter Operator Name Role Phone Mark Caal MD Primary Care Provider +1- [phone] Reason for Visit * Reason Onset Date Comments Advice 02/22/2023 Encounter Details Date Type Department Care Team Description 02/22/2023 Telephone [facility] [address] [place] [address] Mark Caal MD [address] [place] [address] Advice Allergies Active Allergy Reactions [...] mRNA, LNP-s, No Pre serve, 2-Dose Series ([employer]) 03/27/2021,08/16/2020,07/19/2020 Pneumococcal Conjugate Vacc, 13 Valent (Prevnar) [...] Specialty Care Team Description 02/28/2023 Laboratory Laboratory [facility] [address] [place] [facility] [address] 03/18/2023 Office Visit Hematology Oncology [facility] [address] [facility] [address] 05/22/2023 Office Visit Gastroenterology Aniyah Mora DO [address] [place] [address] 07/16/2023 Office Visit Rheumatology Bishop Quinones CRNP [email or web address] [facility] [place] [address] Scheduled Procedures Name Priority Associated Diagnoses [...] D LEVEL ONCE IN A LIFETIME-USE SMARTSET# [id number] Completed 08/30/2022, 11/26/2019, 12/28/2013 Cologuard Discontinued Fecal Occult Blood Test Discontinued GARDASIL-HPV IMMUNIZATION SERIES Aged Out No longer eligible based on patient's age to complete this topic MENINGOCOCCAL (MENACTRA/MENVEO) Aged Out No longer eligible based on patient's age to complete this topic Sigmoidoscopy Discontinued documented as of this encounter Medical Devices Implanted Type Area Delivery Technician Device Identifier Shelf Expiration Date Model / Serial / Lot Surface Articular - [id number] [place]planted:Q[place] 1 [place]2009 [place] [facility] [place] Knee [employer] 04/19/2015 00-5994-03 0-20 / / [id number] Clip Quick 2.8mm 230cm - [id number] Implanted:Qty: 1 on 07/25/2021 by Lisa Sullivan MD at ENDOSCOPY [facility] Colon [employer] 09/17/2023 HX-202UR.A / / [id number] documented as of this encounter Advance Directives Documents on File Type Date Recorded Patient Experiential Therapist Expl anation Advance Directives and Living Will [...] the patient have Health Care Power of Supervisor Accounts Receivable? No Care Teams Brick Setter Operator Relationship Specialty Start Date End Date Mark Caal MD [address] [place] [address] PCP - General Family Medicine 07/21/18 documented as of this encounter
--- OUTSIDE RECORDS SUMMARY | 2023-03-29 07:14 | External Medical Summary | Summary of Care ---
Author Name Unknown Organization [facility] Address [address] [place] [address] Phone [phone] Care Team Providers Care Jewel Bearing Broacher Name Role Phone Mark Caal MD Primary Care Provider +1- [phone] Reason for Referral * Precert (Within 10 days (routine)) - Pending Review Specialty Diagnoses / Procedures Referred By Contskye t Referred To Contact Radiology Diagnoses Other ascites Procedures IR PARACENTESIS Daniel Mancilla MD [address] [place] [address] Referral ID Status Reason Start Date Expiration Date V isits Requested Visits Authorized [id number] Pending Review 03/05/2023 999 999 Reason for Visit * Reason Onset Date Comments Advice 02/22/2023 Encounter Details Date Type Department Care Team Description 02/22/[address] [facility] [address] [place] [address] Mark Caal MD [address] [place] [address] Advice Allergies Active Allergy Reactions [...] mRNA, LNP-s, No Pre serve, 2-Dose Series ([employer]) 03/27/2021,08/16/2020,07/19/2020 Pneumococcal Conjugate Vacc, 13 Valent (Prevnar) [...] then fax and coordinate a date with [facility]. * Telephone Encounter - Lorin Cooper [...] Specialty Care Team Description 02/28/2023 Laboratory Laboratory [place], [facility] [address] [facility] [address] 03/18/2023 Office Visit Hematology Oncology Alexander Harrell MD [address] [place] [address] 05/22/2023 Office Visit Gastroenterology Aniyah Mora DO [address] [place] [address] 07/16/2023 Office Visit Rheumatology Bishop Quinones CRNP [address] [facility] [place] [address] Scheduled Orders Name Type Priority Associated Diagnoses [...] D LEVEL ONCE IN A LIFETIME-USE SMARTSET# [id number] Completed 08/30/2022, 11/26/2019, 12/28/2013 Cologuard Discontinued Fecal Occult Blood Test Discontinued GARDASIL-HPV IMMUNIZATION SERIES Aged Out No longer eligible based on patient's age to complete this topic MENINGOCOCCAL (MENACTRA/MENVEO) Aged Out No longer eligible based on patient's age to complete this topic Sigmoidoscopy Discontinued documented as of this encounter Medical Devices Implanted Type Area Light Rail Transit Operator Device Identifier Shelf Expiration Date Model / Serial / Lot Surface Articular - [id number] Implanted:Qty: 1 on 09/15/2009 at [place] [facility] [place] Right: Knee [employer] 04/19/2015 00-5994-03 - [id number] Clip Quick 2.8mm 230cm - [id number] Implanted:Qty: 1 on 07/25/2021 by Lisa Sullivan MD at ENDOSCOPY [facility] Colon [employer] 09/17/2023 HX-202UR.A / / [id number] documented as of this encounter Visit Diagnoses Diagnosis Other ascites- Primary documented in this encounter Advance Directives Documents on File Type Date Recorded Patient Clinical Informatics Educator Expl anation Advance Directives and Living Will [...] the patient have Health Care Power of Safety Deposit Clerk? No Care Teams Jewel Bearing Broacher Relationship Specialty Start Date End Date Mark Caal MD [address] [place] [address] PCP - General Family Medicine 07/21/18 documented as of this encounter
--- OUTSIDE RECORDS SUMMARY | 2023-03-29 07:14 | External Medical Summary | Summary of Care ---
Author Name Unknown Organization [facility] Address [address] [facility] [address] Phone [phone] Care Team Providers Care Plant Security Guard Name Role Phone Mark Caal MD Primary Care Provider +1- [phone] Reason for Visit * Reason Comments eRx-Medication Refill Encounter Details Date Type Department Care Team Description 02/22/2023 Refill Gastroenterology, [facility] [address] [place] [address] Pedro Zhong CRNP [address] [place] [address] Liver cirrhosis secondary to nonalcoholic steatohepatitis (ADRIAN) [...] ordered: 07/27/2022 Pharmacy: [id number] [id number] [facility] Is this request for a controlled [...] Specialty Care Team Description 02/28/2023 Laboratory Laboratory [place], Laboratory [address] [place] [address] 03/18/2023 Office Visit Hematology Oncology Alexander Harrell MD [address] [place] [address] 05/22/2023 Office Visit Gastroenterology Aniyah Mora DO [address] [place] [address] 07/16/2023 Office Visit Rheumatology Bishop Quinones CRNP [facility] [place] [address] Scheduled Orders Name Type Priority Associated Diagnoses [...] D LEVEL ONCE IN A LIFETIME-USE SMARTSET# [id number] Completed 08/30/2022, 11/26/2019, 12/28/2013 Cologuard Discontinued Fecal Occult Blood Test Discontinued GARDASIL-HPV IMMUNIZATION SERIES Aged Out No longer eligible based on patient's age to complete this topic MENINGOCOCCAL (MENACTRA/MENVEO) Aged Out No longer eligible based on patient's age to complete this topic Sigmoidoscopy Discontinued documented as of this encounter Medical Devices Implanted Type Area Spray Pilot Device Identifier Shelf Expiration Date Model / Serial / Lot Surface Articular - [id number] [place]ed:Q[place] 1 [place] [facility] [place]: Knee [employer] 04/19/2015 00-5994-03 0-20 / / [id number] Clip Quick 2.8mm 230cm - [id number] Implanted:Qty: 1 on 07/25/2021 by Lisa Sullivan MD at ENDOSCOPY [facility] Colon [employer] 09/17/2023 HX-202UR.A / / [id number] documented as of this encounter Visit Diagnoses Diagnosis Liver cirrhosis secondary to nonalcoholic steatohepatitis (ADRIAN) (HCC)- Primary documented in this encounter Advance Directives Documents on File Type Date Recorded Patient Auto Tire Recapper Expl anation Advance Directives and Living Will [...] the patient have Health Care Power of Closing Specialist? No Care Teams Plant Security Guard Relationship Specialty Start Date End Date Mark Caal MD [address] [place] [address] PCP - General Family Medicine 07/21/18 documented as of this encounter
--- OUTSIDE RECORDS SUMMARY | 2023-03-29 07:14 | External Medical Summary | Summary of Care ---
Author Name Unknown Organization [facility] Address [address] [place] [address] Phone [phone] Care Team Providers Care Procurement Engineer Name Role Phone Mark Caal MD Primary Care Provider +1- [phone] Reason for Visit * Reason Onset Date Comments Advice 02/22/2023 Encounter Details Date Type Department Care Team Description 02/22/2023 Telephone [facility] [address] [place] [address] Mark Caal MD [address] [place] [address] Advice Allergies Active Allergy Reactions [...] mRNA, LNP-s, No Pre serve, 2-Dose Series (Experticity) 03/27/2021,08/16/2020,07/19/2020 Pneumococcal Conjugate Vacc, 13 Valent (Prevnar) [...] encounter Miscellaneous Notes * Addendum Note - Lorin Cooper RN - 02/26/2023 11:01 AM EDTAddended by: LORIN COOPER on: 02/26/2023 11:01 AM Modules accepted: Orders * Telephone Encounter - Lorin Cooper RN - 02/26/2023 10:[address] Nj- orders pended ( I [facility] [place] [facility]) so I did mimic her orders. I do see PCP put coag orders in as well, but they were not drawn. Can you review and sign? I can then fax and coordinate a date with [facility]. * Telephone Encounter - Lorin Cooper RN [...] Specialty Care Team Description 02/28/2023 Laboratory Laboratory [facility] [address] [place] [address] 03/18/2023 Office Visit Hematology Oncology Alexander Harrell MD [address] [place], [place] [address] 05/22/2023 Office Visit Gastroenterology Aniyah Mora DO [address] [place] [address] 07/16/2023 Office Visit Rheumatology Bishop Quinones CRNP [facility] [place] [address] Scheduled Procedures Name Priority Associated Diagnoses Date/Ti [...] Completed 11/21/2018, 06/07/2017, 09/18/2011 Colonoscopy Discontinued 07/25/2021, 030 12/2021, 08/18/2018, Additional history exists Colorectal Cancer Screening Discontinued VITAMIN D LEVEL ONCE IN A LIFETIME-USE SMARTSET# 65547 Completed 08/30/2022, 11/26/2019, 12/28/2013 Cologuard Discontinued Fecal Occult Blood Test Discontinued GARDASIL-HPV IMMUNIZATION SERIES Aged Out No longer eligible based on patient's age to complete this topic MENINGOCOCCAL (MENACTRA/MENVEO) Aged Out No longer eligible based on patient's age to complete this topic Sigmoidoscopy Discontinued documented as of this encounter Medical Devices Implanted Type Area General Road Production Manager Device Identifier Shelf Expiration Date Model / Serial / Lot Surface Articular - [id number] [place]ed:Q[place] [facility] [place] K[place] [employer] 04/19/2015 00-5994-03 0-20 / / [id number] Clip Quick 2.8mm 230cm - [id number] Implanted:Qty: 1 on 07/25/2021 by Lisa Sullivan MD at ENDOSCOPY [facility] Colon [employer] 09/17/2023 [id number]-202UR.[id number] / / [id number] documented as of this encounter Advance Directives Documents on File Type Date Recorded Patient Conference And Event Organiser Expl anation Advance Directives and Living Will [...] the patient have Health Care Power of Jacquard Card Lacer? No Care Teams Procurement Engineer Relationship Specialty Start Date End Date Mark Caal MD [address], [place] [id number] PCP - General Family Medicine 07/21/18 documented as of this encounter
--- OUTSIDE RECORDS SUMMARY | 2023-03-29 07:14 | External Medical Summary | Summary of Care ---
Author Name Unknown Organization [facility] Address [address] [place] [address] Phone [phone] Care Team Providers Care Chef De Partie Name Role Phone Mark Caal MD Primary Care Provider +1- [phone] Reason for Visit * Reason Onset Date Comments Advice 02/22/2023 Encounter Details Date Type Department Care Team Description 02/22/2023 Telephone [facility] [address] [place] [address] Mark Caal MD [address] [place] [address] Advice Allergies Active Allergy Reactions [...] mRNA, LNP-s, No Pre serve, 2-Dose Series (GruupMeet) 03/27/2021,08/16/2020,07/19/2020 Pneumococcal Conjugate Vacc, 13 Valent (Prevnar) [...] Specialty Care Team Description 02/28/2023 Laboratory Laboratory [facility] [address] [facility] [place] [address] 03/18/2023 Office Visit Hematology Oncology [facility] [address] [facility] [address] 05/22/2023 Office Visit Gastroenterology Aniyah Mora DO [address] [place] [address] 07/16/2023 Office Visit Rheumatology Bishop Quinones CRNP [address] [place] [address] Scheduled Procedures Name Priority Associated Diagnoses [...] D LEVEL ONCE IN A LIFETIME-USE SMARTSET# 64631 Completed 08/30/2022, 11/26/2019, 12/28/2013 Cologuard Discontinued Fecal Occult Blood Test Discontinued GARDASIL-HPV IMMUNIZATION SERIES Aged Out No longer eligible based on patient's age to complete this topic MENINGOCOCCAL (MENACTRA/MENVEO) Aged Out No longer eligible based on patient's age to complete this topic Sigmoidoscopy Discontinued documented as of this encounter Medical Devices Implanted Type Area Ad Setter Device Identifier Shelf Expiration Date Model / Serial / Lot Surface Articular - [id number] Implanted:Qty: 1 on 09[place]15/2009 [place] [facility] [place] Knee [employer] 04/19/2015 00-5994-03 0-20 / / [id number] Clip Quick 2.8mm 230cm - [id number] Implanted:Qty: 1 on 07/25/2021 by Lisa Sullivan MD at ENDOSCOPY [facility] Colon [employer] 09/17/2023 [id number]-202UR.[id number] / / [id number] documented as of this encounter Advance Directives Documents on File Type Date Recorded Patient Blade Operator Expl anation Advance Directives and Living [...] the patient have Health Care Power of Equipment Monitor Phototypesetting? No Care Teams Chef De Partie Relationship Specialty Start Date End Date Mark Caal MD [address] [place] [address] PCP - General Family Medicine 07/21/18 documented as of this encounter
--- OUTSIDE RECORDS SUMMARY | 2023-03-29 07:15 | External Medical Summary | Summary of Care ---
Author Name Unknown Organization [facility] Address [address] [place] [address] Phone [phone] Care Team Providers Care Sleeping Car Porter Name Role Phone Mark Caal MD Primary Care Provider +1- [phone] Reason for Visit * Reason Onset Date Comments Medication Problem 12/20/2022 Coreg Encounter Details Date Type Department Care Team Description 12/20/2022 Telephone Gastroenterology, [facility] [address] [place] [address] Daniel Elizabeth MD [address] [place] [address] Medication Problem (Coreg) Allergies Active Allergy Reactions Severity Noted Date [...] as of this encounter (statuses as of 12/21/2022) Medications Medication Sig Dispensed Refills Start Date [...] daily as needed for Allergies. 30 Tablet 01/29/2022 Active Additional Information Patient not taking.Reported on 07/31/2022 Levalbuterol HCl 1.25 MG/3ML Inhalation Nebulization Solution (Xopenex) Inhale via nebulizer 1 Ampule every 4 hours as needed for Wheezing. 72 mL 12 02/01/2022 Active Pantoprazole Sodium 40 MG Oral Tablet Delayed Release (Protonix) Take by mouth 1 Tablet in the morning. 90 Tablet 3 02/01/2022 Active Spironolactone 50 MG Oral Tablet (Aldactone) Take 1 Tablet (50 mg) by mouth in the morning. 90 Tablet 2 04/02/2022 Active Furosemide 20 MG Oral Tablet (Lasix) [...] THE MORNING 100 Tablet 2 12/05/2022 Active Carvedilol 6.25 MG Oral Tablet (Coreg) Take 1 Tablet by mouth in the morning and 1 Tablet in the evening. 60 Tablet 1 12/10/2022 12/21/19 23 Discontinued documented as of this encounter (statuses as of 12/21/2022) Active Problems Problem Noted Date COPD, group [...] as of this encounter (statuses as of 12/21/2022) Resolved Problems Problem Noted Date Resolved Date [...] as of this encounter (statuses as of 12/21/2022) Immunizations Name Administration Dates Next Due COVID-19 mRNA, LNP-s, No Pre serve, 2-Dose Series (Flirq) 03/27/2021,08/16/2020,07/19/2020 Pneumococcal Conjugate Vacc, 13 Valent (Prevnar) 06/07/2017 Pneumococcal Polysaccharide PPV23 (Pneumovax) 11/21/2018,09/18/2011 Seasonal Influenza, Quadriva lent Hd (Fluzone Hd) 04/02/2022,04/18/2021 Seasonal Influenza, Quadriva lent, No Preserve, 6 Mons & Above, IM 05/19/2018,06/07/2017 Seasonal Influenza, Split, I IV3, With Preserve, [...] encounter Miscellaneous Notes * Addendum Note - Sylvester Swenson RN - 12/20/2022 3:40 PM EDTAddended by: SYLVESTER SWENSON on: 12/20/2022 03:40 PM Modules accepted: Orders * Telephone Encounter - Sylvester Swenson RN - 12/20/2022 3:[address] Elizabeth "OK, can discontinue. Will need VB surveillance with EGD, due next year, will defer to Susy to d/w pt when she sees her. " Medication d/c from patients list. Called patient to inform. Dr. Mora - [facility]. * Telephone Encounter - Sylvester Swenson RN - 12/20/2022 9:49 AM EDT Pt calling stating she no longer wishes to take Coreg, advises that she has gained 1-2lbs but notices the swelling in her legs has increased significantly and is having severe leg cramps. documented in this encounter Plan of Treatment Upcoming Encounters Date Type Specialty Care Team Description 01/07/2023 Nurse Only Rheumatology Pf, Nurse Rheum [address] [place] [address] 01/10/2023 Office Visit Dermatology Vanessa Fischer PA-C [address] [place] [address] [place] [address] 03/18/2023 Office Visit Hematology Oncology Alexander Harrell MD [address] [place] [address] 05/22/2023 Office Visit Gastroenterology Aniyah Mora DO [address] [place] [address] 07/17/2023 Office Visit Rheumatology Theresa Marshall PA-C Scheduled Procedures Name Priority Associated Diagnoses Date/Ti me ESOPHAGOGASTRODUODENOSCOPY ( EGD), FLEXIBLE, TRANSORAL, DIAGNOSTIC Recall Esophageal varices (HCC) COLONOSCOPY FLEXIBLE PROXIMAL DIAGNOSTIC Recall History of colon polyps Health Maintenance Due Date Last Done Comments Alpha-1 Antitrypsin 02/05/1970 DIABETES-EYE EXAM 02/05/1970 DIABETES-FOOT EXAM 02/05/1970 Hepatitis B (1 of 3 - Risk 3-dose series) 2012 Zoster Vaccines (2 of 3) 12/27/2013 11/01/2013 COVID-19 Vaccine (4 - Pfizer series) 05/22/2021 03/27/2021, 08/16/2020, 07/19/2020 Albumin/Creatinine Ratio 10/19/2022 10/19/2021 Influenza Vaccine (FLU shot) (#1) 2023 04/02/2022, 04/18/2021, 05/19/2018, Additional history exists HbA1c 01/23/2023 07/23/2022, 01/18, 10/19/2021, Additional history exists Depression Screening, Annual for Pts 12 and Over 07/24/2023 07/23/2022, 08/05/2014 O2 ASSESSMENT COMPLETED IN PAST YEAR FOR [...] D LEVEL ONCE IN A LIFETIME-USE SMARTSET# [id number] Completed 08/30/2022, 11/26/2019, 12/28/2013 Cologuard Discontinued Fecal Occult Blood Test Discontinued GARDASIL-HPV IMMUNIZATION SERIES Aged Out No longer eligible based on patient's age to complete this topic MENINGOCOCCAL (MENACTRA/MENVEO) Aged Out No longer eligible based on patient's age to complete this topic Sigmoidoscopy Discontinued documented as of this encounter Medical Devices Implanted Type Area Timber Skidder Device Identifier Shelf Expiration Date Model / Serial / Lot Surface Articular - [id number] [place]ed:Q[place] 1 [place]/2009 [place] [facility] [place] K[place] [employer] 04/19/2015 00-5994-03 0-20 / / [id number] Clip Quick 2.8mm 230cm - [id number] Implanted:Qty: 1 on 07/25/2021 by Lisa Sullivan MD at ENDOSCOPY [facility] Colon [employer] 09/17/2023 HX-202UR.A / / [id number] documented as of this encounter Advance Directives Documents on File Type Date Recorded Patient Gas Specialist Expl anation Advance Directives and Living Will [...] the patient have Health Care Power of Husbandry Technician? No Care Teams Sleeping Car Porter Relationship Specialty Start Date End Date Mark Caal MD [address] [place] [facility] [place] [address] PCP - General Family Medicine 07/21/18 documented as of this encounter
--- OUTSIDE RECORDS SUMMARY | 2023-03-29 07:15 | External Medical Summary | Summary of Care ---
Author Name Unknown Organization [facility] [address] [facility] [address] Phone [phone] Care Team Providers Care Bank Appraiser Name Role Phone Mark Caal MD Primary Care Provider [phone]- [phone] Reason for Visit * Reason Comments Follow Up Cirrhosis Encounter Details Date Type Department Care Team Description 12/04/2022 Office Visit Gastroenterology, [facility] [address] [place] [address] Daniel Elizabeth MD [address] [place] [address] Liver cirrhosis secondary to nonalcoholic steatohepatitis (ADRIAN) [...] as of this encounter (statuses as of 12/04/2022) Medications Medication Sig Dispensed Refills Start Date [...] for Wheezing. 72 mL 12 02/01/2022 Active Montelukast Sodium 10 MG Oral Tablet (Singulair) Take by mouth 1 Tablet in the morning. 100 Tablet 2 02/01/2022 Active Pantoprazole Sodium 40 MG Oral [...] Tablet in the evening. 0 08/07/2022 Active Carvedilol 6.25 MG Oral Tablet (Coreg) Take 1 Tablet by mouth every evening. 30 Tablet 0 12/04/2022 Active Nadolol 20 MG Oral Tablet (Corgard) Take 1 Tablet (20 mg) by mouth at bedtime. 90 Tablet 3 03/28/2022 12/05/19 23 Discontinued documented as of this encounter (statuses as of 12/04/2022) Active Problems Problem Noted Date COPD, group [...] as of this encounter (statuses as of 12/04/2022) Resolved Problems Problem Noted Date Resolved Date [...] as of this encounter (statuses as of 12/04/2022) Immunizations Name Administration Dates Next Due COVID-19 mRNA, LNP-s, No Pre serve, 2-Dose Series (b[place]) 03/27/2021,08/16/2020,07/19/2020 Pneumococcal Conjugate Vacc, 13 Valent (Prevnar) [...] Sign Reading Time Taken Comments Blood Pressure 122/62 12/04/2022 2:12 PM EDT Pulse 62 12/04/2022 2:12 PM EDT Temperature 36.4 C (97.6 F) 12/04/2022 2:12 PM ED T Respiratory Rate 16 12/04/2022 2:12 PM EDT Oxygen Saturation 96% 12/04/2022 2:12 PM EDT room air Inhaled Oxygen Concentration - - Weight 77.6 kg (171 lb 1.6 oz) 12/04/2022 2:12 P M EDT Height - - Body Mass Index 32.35 09/07/2022 7:09 AM EDT documented in this [...] as of this encounter Progress Notes * Daniel Elizabeth MD - 12/04/2022 3:19 PM EDT CC: Recheck Cirrhosis. HPI: Recall that Ms. Juli Knapp is a 72 yr old female pt of Dr. Caal with a hx of asthma,diverticulitis, GERD, HTN, arthritis and obesity who presents today for recheck of cirrhosis complicated by EV post banding, peripheral edema. Nadolol 50 mg twice daily and spironolactone 50 mg daily were both started at the last office visit. 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 Meds: Pantoprazole 40mg daily. No reflux symptoms. Furosemide 20mg daily. Spironolactone 50mg one tab daily. Symptoms: Minimal ankle edema, no abd ascites. No yellow eyes or skin, no blood in BMs, no nausea, vomiting, no confusion, no pruritus. Screenings: CTAP Mar 2022: 1. Cirrhosis. 2. No masslike arterial phase hyperenhancing observation to indicate hepatocellular carcinoma. 3. 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 4. Markedly elevated right hemidiaphragm. Colonoscopy July 2021: two polyps, largest 15mm. Path Tubular adenoma and hyperplastic, rec surveillance in 3 yrs Complications: Non occlusive PVT: Seen by Hem/onc, not treated. Em f/u CT ordered as well as AFP Esophageal Varices post banding: On Pantoprazole 40mg daily. EGD July 2021: Grade I , very small esophageal varices with no red melyssa sign. PHG. Due for surveillance (was rec 6m). EGD x 3 in 2019 with banding of Grade III, large esophageal varices. 12/09: No complaints. Denies fluid retention, confusion, bleeding. Weight 4 lbs from last visit, pt statesat baseline, compliant with low NA diet + diuretics although pt reports nocturia. Muscle cramps, treats with tonic water/quinine. ALLERGIES: Review of patient's allergies indicates: Allergen Reactions [...] UP A TOLERANCE TO MED, DOESN'T WORK". Past Medical History: Diagnosis Date Asthma, moderate [...] or gangrene Personal history of radiation therapy 2017 Sinus tachycardia 04/25 put on metoprolol Status [...] performed by Denise Singh MD at OR [facility] COLONOSCOPY 03/28/2011 COLONOSCOPY, DIAGNOSTIC (RECTUM) 12/10/2017 TVA polyp, repeat 6 mo/COLONOSCOPY FLEXIBLE PROXIMAL DIAGNOSTIC performed by Lisa Sullivan MD at ENDOSCOPY [facility] COLONOSCOPY, DIAGNOSTIC (RECTUM) 08/18/2018 diverticulosis, flex sig 1 yr/COLONOSCOPY FLEXIBLE PROXIMAL DIAGNOSTIC performed by Lisa Sullivan MD at ENDOSCOPY [facility] COLONOSCOPY, DIAGNOSTIC (RECTUM) 07/25/2021 adenomatous & hyperplastic polyps, repeat 3 yrs / COLONOSCOPY FLEXIBLE PROXIMAL DIAGNOSTIC performed by Lisa Sullivan MD at ENDOSCOPY [facility] EGD, FLEXIBLE, DIAGNOSTIC 11/11/2018 esophageal varices, portal hypertensive gastropathy, repeat 6 wks/ESOPHAGOGASTRODUODENOSCOPY (EGD),FLEXIBLE, TRANSORAL, DIAGNOSTIC performed by Lisa Sullivan MD at ENDOSCOPY [facility] EGD, FLEXIBLE, DIAGNOSTIC 01/26/2019 esophageal varices, portal hypertensive gastropathy, repeat 6 wks/[facility] EGD, FLEXIBLE, DIAGNOSTIC 03/23/2019 benign hyperplastic gastric polyp / [facility] EGD, FLEXIBLE, DIAGNOSTIC 01/26/2019 eso varices, repeat 6 wks/[facility] EGD, FLEXIBLE, DIAGNOSTIC 08/25/2019 portal hypertensive gastropathy, repeat 1 yr / ESOPHAGOGASTRODUODENOSCOPY (EGD), FLEXIBLE, TRANSORAL, DIAGNOSTIC performed by Lisa Sullivan MD at ENDOSCOPY [facility] EGD, FLEXIBLE, DIAGNOSTIC 07/25/2021 Portal hypertensive gastropathy, sm eso varices, repeat 6 mo / ESOPHAGOGASTRODUODENOSCOPY (EGD), FLEXIBLE, TRANSORAL, DIAGNOSTIC performed by Lisa Sullivan MD at ENDOSCOPY [facility] EGD, FLEXIBLE, DIAGNOSTIC N/A 09/07/2022 small hiatal hernia/grade I esophageal varices/portal hypertensive gastropathy/recall 1 year/ESOPHAGOGASTRODUODENOSCOPY (EGD), FLEXIBLE, TRANSORAL, DIAGNOSTIC performed by Lisa Sullivan MD at [facility] IDENTIFY SENTINEL NODE, RADIOACTIVE TRACER Left 10/16/2017 INJECTION PROCEDURE FOR IDENTIFICATION SENTINEL NODE performed by Denise Singh MD at [facility] SIDNEY FLEX SIGMOID DIAGNOSITIC 08/25/2019 normal, repeat 1 yr / SIGMOIDOSCOPY FLEXIBLE DIAGNOSTIC performed by Lisa Sullivan MD at ENDOSCOPY [facility] KNEE ARTHROSCOPY/MENISCECTOMY Left 07/08/2019 ARTHROSCOPY KNEE MEDIAL OR LATERAL MENISCECTOMY performed by Dahiana Madrid DO at [facility] MASTECTOMY, PARTIAL Left 10/16/2017 10/16/2017 MASTECTOMY PARTIAL performed by Denise Singh MD at [facility] PARTIAL HYSTERECTOMY 1983 REDUCTION OF BREAST Bilateral 1999 REMOVAL OF BOWEL LESION(S) 01/1998 diverticulitis REMOVAL OF OVARY/OVIDUCT(S) 1985 REMOVE ADDED SPINE LAMINA, 1 SEG N/A 09/09/2020 LAMINECTOMY FACETECTOMY AND FORAMINOTOMY ADDITIONAL LEVELS performed by Rg Stewart MD at OR [facility] REMOVE GALLBLADDER REMOVE LUMBAR SPINE LAMINA, 1 SEG N/A 09/09/2020 LAMINECTOMY FACETECTOMY AND FORAMINOTOMY LUMBAR performed by Rg Stewart MD at OR [facility] REMOVE TONSILS & ADENOIDS, UNDER 12 T & A, age<12 REPAIR BOWEL-BLADDER FISTULA 07/1998 REPAIR INITIAL INCISIONAL HERNIA 08/1999 REPAIR OF NASAL SEPTUM 2010 Nasal Septum Repair REVISE KNEE JOINT REPLACEMENT 09/15/2009 TOTAL KNEE REVISION ONE COMPONENT performed [place] Clem MAYO [place] [facility] [place]CROILIAC JOINT INJECT W/GUIDANCE 02/08/2020 INJECTION SACROILIAC JOINT performed by Vahid Rutherford DO at [facility] TENDON SHEATH INCISION, FINGER Left 05/10/2015 TRIGGER FINGER RELEASE performed by Shiv Stovall MD at OR [facility] US GUIDED BREAST BIOPSY LEFT Left 09/26/2017 09/26/2017 left breast core bx at 6:00 dx infiltrating carcinoma , 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 Other (Gallbladder Cancer) Sister 66 Social History Socioeconomic History Marital status: Tobacco Use Smoking status: Never Smokeless tobacco: Never Vaping Use Vaping Use: Never used Substance and Sexual Activity Alcohol use: No Drug use: No EXAM: BP 122/62 | Pulse 62 | Temp 36.4 C (97.6 F) | Resp 16 | Wt 77.6 kg (171 lb 1.6 oz) | SpO2 96% Comment: room air | BMI 32.35 kg/m | BSA 1.83 m EXAM: BP 122/62 | Pulse 62 | Temp 36.4 C (97.6 F) | Resp 16 | Wt 77.6 kg (171 lb 1.6 oz) | SpO2 96% Comment: room air | BMI 32.35 kg/m | BSA 1.83 m GENERAL: 72 year old female walking around with a cane. Comfortable, pleasant SKIN: no rashes, ulcers, or spider angiomata. Bruising on calf. HEENT: normocephalic, sclera clear, pharynx normal NECK: supple, no lymphadenopathy, no masses or thyroid enlargement LUNGS: clear to auscultation anterior and posterior but increase WOB. She is able to walk slowly around room and lie flat without dropping sat or increase WOB HEART: regular rate & rhythm, no murmurs and no gallops ABDOMEN: normo-active bowel sounds, soft, non-tender, non-distended no masses, no hepatosplenomegaly, no rebound or guarding, no bruits EXTREMITIES: no palmar erythema, no edema, no skin discoloration, no clubbing, no cyanosis NEURO: no lateralizing findings, Sensory/Motor grossly normal Last labs 11/09: Na 138, creat 0.7, MELD 7 IMPRESSION/RECOMMENDATIONS: Compensated cirrhosis, NAFLD - Unclear need for beta blockade in pt who has Undergone EVL for VB prophy and who has COPD. Will continue for now, but switch to Coreg, with plans for pt to call with a follow up BP and pulse in 1 week. - Cont diuretics, no evidence of vol overload. - Cramps - can cont tonic water, if no response then glutamine. - MELD labs in 3 mos. Uls with doppler for HCC screen in January documented in this encounter Nursing Notes * Chikis Hinojosa RN - 12/04/2022 2:15 PM EDT Patient identified by name and date of . Chief Complaint Patient presents with Follow Up Cirrhosis Symptoms: NO symptoms Jsxjkqk-vgq-Upvbkam Test result: 31 seconds Bowel Movement Frequency: 4-5 times a day Bowel Movement Consistency: soft and formed Straining: no Rectal Pain: no Blood in Stool: Yes; bright red blood per rectum; reports occassional small amounts she believes vesna hemorrhoid related. documented in this encounter Plan of Treatment Upcoming Encounters Date Type Specialty Care Team Description 12/07/2022 Imaging Radiology 01/07/2023 Nurse Only Rheumatology Pf, Nurse Rheum [address] [facility] [place] [address] 01/10/2023 Office Visit Dermatology Vanessa Fischer PA-C [address] [place] [address] [place] [phone] 03/18/2023 Office Visit Hematology Oncology Alexander Harrell MD [address] [place] [address] 05/22/2023 Office Visit Gastroenterology Aniyah Mora, [address] [place] [address] 07/17/2023 Office Visit Rheumatology Theresa Marshall PA-C Scheduled Orders Name Type Priority Associated Diagnoses Orde r Schedule US ABDOMEN LIMITED Medical Imaging Routine Liver cirrhosis secondary to nonalcoholic steatohepatitis (ADRIAN) (HCC) Expected: 12/04/2022, Expires: 01/05/2024 COMPREHENSIVE METABOLIC PANEL Lab Routine Liver cirrhosis secondary to nonalcoholic steatohepatitis (ADRIAN) (HCC) Expected: 12/04/2022, Expires: 12/05/2023 CBC WITH WBC DIFFERENTIAL Lab Routine Liver cirrhosis secondary to nonalcoholic steatohepatitis (ADRIAN) (HCC) Expected: 12/04/2022, Expires: 12/05/2023 PT INR Lab Routine Liver cirrhosis secondary to nonalcoholic steatohepatitis (ADRIAN) (HCC) Expected: 12/04/2022, Expires: 12/05/2023 US DUPLEX VISCERL ORGANS COMPLETE Medical Imaging Routine Liver cirrhosis secondary to nonalcoholic steatohepatitis (ADRIAN) (HCC) Expected: 03/06/2023, Expires: 01/05/2024 Scheduled Procedures Name Priority Associated Diagnoses Date/Ti [...] D LEVEL ONCE IN A LIFETIME-USE SMARTSET# [id number] Completed 08/30/2022, 11/26/2019, 12/28/2013 Cologuard Discontinued Fecal Occult Blood Test Discontinued GARDASIL-HPV IMMUNIZATION SERIES Aged Out No longer eligible based on patient's age to complete this topic MENINGOCOCCAL (MENACTRA/MENVEO) Aged Out No longer eligible based on patient's age to complete this topic Sigmoidoscopy Discontinued documented as of this encounter Medical Devices Implanted Type Area Blind Installer Device Identifier Shelf Expiration Date Model / Serial / Lot Surface Articular - [id number] [place]ed:[place] [facility] [place] Knee [employer] 04/19/2015 00-5994-03 0-20 / / [id number] Clip Quick 2.8mm 230cm - [id number] Implanted:Qty: 1 on 07/25/2021 by Lisa Sullivan MD at ENDOSCOPY [facility] [employer] 09/17/2023 [id number]-202UR.[id number] / [id number] documented as of this encounter Visit Diagnoses Diagnosis Liver cirrhosis secondary to nonalcoholic steatohepatitis (ADRIAN) (HCC)- Primary documented in this encounter Advance Directives Documents on File Type Date Recorded Patient Certified Pharmacy Technician Expl anation Advance Directives and Living [...] the patient have Health Care Power of Medical Nurse? No Care Teams Bank Appraiser Relationship Specialty Start Date End Date Mark Caal MD [address] [place] [address] PCP - General Family Medicine 07/21/18 documented as of this encounter
--- OUTSIDE RECORDS SUMMARY | 2023-03-29 07:15 | External Medical Summary | Summary of Care ---
Author Name Unknown Organization [facility] Address [address] [place] [address] Phone [phone] Care Team Providers Care Dental Tech Name Role Phone Mark Caal MD Primary Care Provider [phone]- [phone] Reason for Visit * Reason Onset Date Comments Medication Problem 12/20/2022 Coreg Encounter Details Date Type Department Care Team Description 12/20/2022 Telephone Gastroenterology, [facility] [address] [place] [address] Daniel Elizabeth MD [address] [place] [address] Medication Problem (Coreg) Allergies Active Allergy Reactions [...] as of this encounter (statuses as of 12/20/2022) Medications Medication Sig Dispensed Refills Start Date [...] in the evening. 60 Tablet 1 12/10/2022 Active documented as of this encounter (statuses as of 12/20/2022) Active Problems Problem Noted Date COPD, group [...] as of this encounter (statuses as of 12/20/2022) Resolved Problems Problem Noted Date Resolved Date [...] as of this encounter (statuses as of 12/20/2022) Immunizations Name Administration Dates Next Due COVID-19 [...] encounter Miscellaneous Notes * Telephone Encounter - Sylvester Arellano RN - 12/20/2022 9:49 AM EDT Pt calling stating she no longer wishes to take Coreg, advises that she has gained 1-2lbs but notices the swelling in her legs has increased significantly and is having severe leg cramps. documented in this encounter Plan of Treatment Upcoming Encounters Date Type Specialty Care Team Description 01/07/2023 Nurse Only Rheumatology Pf, Nurse Rheum [address] [facility] [place], [place] [address] 01/10/2023 Office Visit Dermatology Vanessa Fischer PA-C [address] [place] [address] [place] [phone] 03/18/2023 Office Visit Hematology Oncology Alexander Harrell MD [address] [place] [address] 05/22/2023 Office Visit Gastroenterology Aniyah Mora DO [address] [place] [address] 07/17/2023 Office Visit Rheumatology Theresa Marshall, PAFrancisC Scheduled Procedures Name Priority Associated Diagnoses Date/Ti [...] D LEVEL ONCE IN A LIFETIME-USE SMARTSET# [id number] Completed 08/30/2022, 11/26/2019, 12/28/2013 Cologuard Discontinued Fecal Occult Blood Test Discontinued GARDASIL-HPV IMMUNIZATION SERIES Aged Out No longer eligible based on patient's age to complete this topic MENINGOCOCCAL (MENACTRA/MENVEO) Aged Out No longer eligible based on patient's age to complete this topic Sigmoidoscopy Discontinued documented as of this encounter Medical Devices Implanted Type Area Alliance Manager Device Identifier Shelf Expiration Date Model / Serial / Lot Surface Articular - [id number] [place]ed:[place] [facility] [place] Knee [employer] 04/19/2015 00-5994-03 0-20 / [id number] Clip Quick 2.8mm 230cm - [id number] Implanted:Qty: 1 on 07/25/2021 by Lisa Sullivan MD at ENDOSCOPY [facility] [place] [employer] 09/17/2023 [id number].[id number] / / [id number] documented as of this encounter Advance Directives Documents on File Type Date Recorded Patient Client Services Representative Expl anation Advance Directives and Living Will [...] the patient have Health Care Power of Manager Furniture? No Care Teams Dental Tech Relationship Specialty Start Date End Date Mark Caal MD [address] [place] [address] PCP - General Family Medicine 07/21/18 documented as of this encounter
--- OUTSIDE RECORDS SUMMARY | 2023-03-29 07:15 | External Medical Summary | Summary of Care ---
Author Name Unknown Organization [facility] Address [address] [place] [address] Phone [phone] Care Team Providers Care Compositor Apprentice Name Role Phone Mark Caal MD Primary Care Provider [phone]- [phone] Reason for Visit * Reason Onset Date Comments Medication Administration prolia Medication Administration 01/07/2023 Prolia * Precert (Within 10 days (routine)) - Authorized Specialty Diagnoses / Procedures Referred By Contac t Referred To Contact Rheumatology Diagnoses Age-related osteoporosis without current pathological fracture Procedures DENOSUMAB 1MG, INJ Sudarshan Early MD [facility] [address] Referral ID Status Reason Start Date Expiration Date V isits Requested Visits Authorized [id number] Authorized Precert 12/22/2019 09/18/2023 99 99 Encounter Details Date Type Department Care Team Description 01/07/2023 Nurse Only Rheumatology [address] [place] [address] Pf, Nurse Rheum [address] [place] [address] [place] [address] Medication Administration (prolia); Medica... Allergies Active Allergy Reactions Severity Noted Date [...] as of this encounter (statuses as of 01/07/2023) Medications Medication Sig Dispensed Refills Start Date [...] THE MORNING 100 Tablet 2 12/05/2022 Active Hospital, Clinic, or Other Facility Administered Medication Ordered Dose Route Frequency Start Date End Date Status Denosumab (Prolia) subcut inj 60 mgIndications:Senile osteoporosis 60 mg SC ONCE 01/07/2023 01/07/2023 Ended documented as of this encounter (statuses as of 01/07/2023) Active Problems Problem Noted Date COPD, group [...] as of this encounter (statuses as of 01/07/2023) Resolved Problems Problem Noted Date Resolved Date [...] as of this encounter (statuses as of 01/07/2023) Immunizations Name Administration Dates Next Due COVID-19 mRNA, LNP-s, No Pre serve, 2-Dose Series ([employer]) 03/27/2021,08/16/2020,07/19/2020 Pneumococcal Conjugate Vacc, 13 Valent (Prevnar) [...] Date Smoking Tobacco: Never Smokeless Tobacco: Never Tobacco Cessation:Counseling Given: Not Answered Alcohol Use Standard Drinks/Week Comments No 0 [...] Sign Reading Time Taken Comments Blood Pressure - - Pulse - - Temperature 37.3 C (99.2 F) 01/07/2023 2:01 PM ED T Respiratory Rate - - Oxygen Saturation - - Inhaled Oxygen Concentration - - Weight - - Height - - Body Mass Index - - documented in this encounter Functional Status Functional [...] as of this encounter Progress Notes * Suze Andrews LPN - 01/07/2023 2:18 PM EDT Juli Knapp presents today for administration of Prolia. She understands the benefits and risks of this treatment. An educational pamphlet was given to the patient. Prolia 60 mg was administered subcutaneously. The patient tolerated the procedure without problems. She will return in 6 months for the next injection and evaluation. Suze Andrews LPN documented in this encounter Nursing Notes * Suze Andrews LPN - 01/07/2023 2:00 PM EDT Chief Complaint Patient presents with Medication Administration prolia documented in this encounter Plan of Treatment Upcoming Encounters Date Type Specialty Care Team Description 01/10/2023 Office Visit Dermatology Vanessa Fischer PA-C [address] [place] [address] [place] [phone] 03/18/2023 Office Visit [facility]ematology Oncology [facility] [address] [facility] [address] 03/26/2023 Office Visit Family Medicine [facility] [address] [facility] [address] 05/22/2023 Office Visit Gastroenterology Aniyah Mora DO [address] [place] [address] 07/16/2023 Office Visit Rheumatology Bishop Quinones CRNP [facility] [place], [place] [address] 07/17/2023 Office Visit Rheumatology Theresa Marshall, MARY ANNC Scheduled Procedures Name Priority Associated Diagnoses Date/Ti [...] D LEVEL ONCE IN A LIFETIME-USE SMARTSET# [id number] Completed 08/30/2022, 11/26/2019, 12/28/2013 Cologuard Discontinued Fecal Occult Blood Test Discontinued GARDASIL-HPV IMMUNIZATION SERIES Aged Out No longer eligible based on patient's age to complete this topic MENINGOCOCCAL (MENACTRA/MENVEO) Aged Out No longer eligible based on patient's age to complete this topic Sigmoidoscopy Discontinued documented as of this encounter Medical Devices Implanted Type Area Heating Repair Technician Device Identifier Shelf Expiration Date Model / Serial / Lot Surface Articular - [id number] Implanted:Qty: 1 on 09/15/2009 at [place] [facility] [place] Right: Knee [employer] 04/19/2015 00-5994-03 0-20 / / [id number] Clip Quick 2.8mm 230cm - [id number] Implanted:Qty: 1 on 07/25/2021 by Lisa Sullivan MD at [facility] [employer] 09/17/2023 [id number]-202UR.A / / [id number] documented as of this encounter Visit Diagnoses Diagnosis Senile osteoporosis- Primary documented in this encounter Administered Medications Inactive Administered Medications - up to 3 most recent administrations Medication Order MAR Action Action Date Dose Rate Site Denosumab (Prolia) subcut inj 60 mg 60 mg, Subcutaneous, ONCE, On 01/07/23 at 1445, For 1 dose Given 01/07/2023 2:18 PM EDT 60 mg Arm Right Upper documented in this encounter Advance Directives Documents on File Type Date Recorded Patient Awning Hanger Supervisor Expl anation Advance Directives and Living [...] the patient have Health Care Power of Land Inspector? No Care Teams Compositor Apprentice Relationship Specialty Start Date End Date Mark Caal MD [address] [place], [place] [phone] PCP - General Family Medicine 07/21/18 documented as of this encounter
--- OUTSIDE RECORDS SUMMARY | 2023-03-29 07:15 | External Medical Summary | Summary of Care ---
Author Name Unknown Organization [facility] Address [address] [place] [address] Phone [phone] Care Team Providers Care Box Bender Name Role Phone Mark Caal MD Primary Care Provider +1- [phone] Reason for Visit * Reason Onset Date Comments Medication Problem 12/20/2022 Coreg Encounter Details Date Type Department Care Team Description 12/20/2022 Telephone Gastroenterology, [facility] [address] [place] [id number] Daniel Elizabeth MD [address] [place] [address] Medication Problem (Coreg) Allergies Active Allergy Reactions [...] mRNA, LNP-s, No Pre serve, 2-Dose Series ([employer]) 03/27/2021,08/16/2020,07/19/2020 Pneumococcal Conjugate Vacc, 13 Valent (Prevnar) [...] Called patient to inform. Dr. Mora - [facility]. * Telephone Encounter - Sylvester Swenson RN [...] Only Rheumatology Pf, Nurse Rheum [address] [place] [address] 01/10/2023 Office Visit Dermatology Vanessa Fischer PA-C [address] [place] [address] [place] [phone] 03/18/2023 Office Visit Hematology Oncology Alexander Harrell MD [address] [place] [address] 05/22/2023 Office Visit Gastroenterology Aniyah Mora DO [address] [place] [address] 07/17/2023 Office Visit Rheumatology Theresa Marshall PA-C [...] D LEVEL ONCE IN A LIFETIME-USE SMARTSET# [id number] Completed 08/30/2022, 11/26/2019, 12/28/2013 Cologuard Discontinued Fecal Occult Blood Test Discontinued GARDASIL-HPV IMMUNIZATION SERIES Aged Out No longer eligible based on patient's age to complete this topic MENINGOCOCCAL (MENACTRA/MENVEO) Aged Out No longer eligible based on patient's age to complete this topic Sigmoidoscopy Discontinued documented as of this encounter Medical Devices Implanted Type Area Doctor Naturopathic Device Identifier Shelf Expiration Date Model / Serial / Lot Surface Articular - [id number] Implanted:Qty: 1 on 09/15/2009 at OR [facility] [place] Right: Knee [employer] 04/19/2015 00-5994-03 0-20 / / [id number] Clip Quick 2.8mm 230cm - [id number] Implanted:Qty: 1 on 07/25/2021 by Lisa Sullivan MD at ENDOSCOPY [facility] Colon [employer] 09/17/2023 [id number]-202UR.[id number] / / [id number] documented as of this encounter Advance Directives Documents on File Type Date Recorded Patient Battery Loader Expl anation Advance Directives and Living Will [...] the patient have Health Care Power of Circuit Court Clerk? No Care Teams Box Bender Relationship Specialty Start Date End Date Mark Caal MD [address] [place] [facility] [place] [place] [address] PCP - General Family Medicine 07/21/18 documented as of this encounter
--- OUTSIDE RECORDS SUMMARY | 2023-03-29 07:15 | External Medical Summary | Summary of Care ---
Author Name Unknown Organization [facility] Address [address] [place] [address] Phone [phone] Care Team Providers Care Wood Sash And Frame Carpenter Name Role Phone Mark Caal MD Primary Care Provider [phone]- [phone] Reason for Visit * Reason Onset Date Comments Medication Problem 12/20/2022 Coreg Encounter Details Date Type Department Care Team Description 12/20/2022 Telephone Gastroenterology, [facility] [address] [place] [address] Daniel Elizabeth MD [address] [place] [address] Medication Problem (Coreg) Allergies Active Allergy Reactions [...] mRNA, LNP-s, No Pre serve, 2-Dose Series ([employer]) 03/27/2021,08/16/2020,07/19/2020 Pneumococcal Conjugate Vacc, 13 Valent (Prevnar) [...] Called patient to inform. Dr. Mora - formerly [facility]. * Telephone Encounter - Sylvester Swenson [...] Only Rheumatology Pf, Nurse Rheum [address] [place] [address] 01/10/2023 Office Visit Dermatology Vanessa Fischer PA-C [address] [place] [address] [place] [phone] 03/18/2023 Office Visit Hematology Oncology Alexander Harrell MD [address] [place] [address] 05/22/2023 Office Visit Gastroenterology Aniyah Mora DO [address] [place] [address] 07/17/2023 Office Visit Rheumatology Theresa Marshall PA-C [...] D LEVEL ONCE IN A LIFETIME-USE SMARTSET# [id number] Completed 08/30/2022, 11/26/2019, 12/28/2013 Cologuard Discontinued Fecal Occult Blood Test Discontinued GARDASIL-HPV IMMUNIZATION SERIES Aged Out No longer eligible based on patient's age to complete this topic MENINGOCOCCAL (MENACTRA/MENVEO) Aged Out No longer eligible based on patient's age to complete this topic Sigmoidoscopy Discontinued documented as of this encounter Medical Devices Implanted Type Area Network Management Specialist Device Identifier Shelf Expiration Date Model / Serial / Lot Surface Articular - [id number] Implanted:Qty: 1 on 09/15/2009 at OR [facility] [place] Right: Knee [employer] 04/19/2015 00-5994-03 0-20 / / [id number] Clip Quick 2.8mm 230cm - [id number] Implanted:Qty: 1 on 07/25/2021 by Lisa Sullivan MD at ENDOSCOPY [facility] Colon [employer] 09/17/2023 [id number]-[id number] / / [id number] documented as of this encounter Advance Directives Documents on File Type Date Recorded Patient Division Roadmaster Expl anation Advance Directives and Living Will [...] the patient have Health Care Power of Heat Treat Inspector? No Care Teams Wood Sash And Frame Carpenter Relationship Specialty Start Date End Date Mark Caal MD [address] [place] [facility] [place] [address] PCP - General Family Medicine 07/21/18 documented as of this encounter
--- OUTSIDE RECORDS SUMMARY | 2023-03-29 07:15 | External Medical Summary | Summary of Care ---
Author Name Unknown Organization [facility] Address [address] [place] [address] Phone [phone] Care Team Providers Care Home Care Rn Name Role Phone Lila Ness MD Primary Care Provider +1- [phone] Reason for Visit * Reason Comments eRx-Medication Refill Encounter Details Date Type Department Care Team Description 12/05/2022 Refill [facility] [address] [place] [address] Lila Ness MD [address] [place] [address] Allergies Active Allergy Reactions Severity [...] as of this encounter (statuses as of 12/05/2022) Medications Medication Sig Dispensed Refills Start Date [...] every evening. 30 Tablet 0 12/04/2022 Active Montelukast Sodium 10 MG Oral Tablet (Singulair) TAKE 1 TABLET BY MOUTH EVERY DAY IN THE MORNING 100 Tablet 2 12/05/2022 Active Montelukast Sodium 10 MG Oral Tablet (Singulair) Take by mouth 1 Tablet in the morning. 100 Tablet 2 02/01/2022 12/06/19 23 Discontinued documented as of this encounter (statuses as of 12/05/2022) Active Problems Problem Noted Date COPD, group [...] as of this encounter (statuses as of 12/05/2022) Resolved Problems Problem Noted Date Resolved Date [...] as of this encounter (statuses as of 12/05/2022) Immunizations Name Administration Dates Next Due COVID-19 [...] encounter Miscellaneous Notes * Telephone Encounter - Ariana Arias RPh - 12/05/2022 8:28 PM EDTSigned Prescriptions: Disp Refills Montelukast Sodium 10 MG Oral Tablet (Sing*100 Ta*2 Sig: TAKE 1 TABLET BY MOUTH EVERY DAY IN THE MORNINGAuthorizing Provider: LILA NESS User: ARIANA ARIAS documented in this encounter Plan of Treatment Upcoming Encounters Date Type Specialty Care Team Description 12/07/2022 Imaging Radiology 01/07/2023 Nurse Only Rheumatology Pf, [facility] Rheum [address] [facility] [place] [address] 01/10/2023 Office Visit Dermatology Vanessa Fischer PA-C [address] [place] [address] [place] [phone] 03/18/2023 Office Visit Hematology Oncology Alexander Harrell MD [address] [place] [phone] 05/22/2023 Office Visit Gastroenterology Aniyah Mora, [address] [place] [phone] 07/17/2023 Office Visit Rheumatology Theresa Marshall, PAFrancisC [...] D LEVEL ONCE IN A LIFETIME-USE SMARTSET# [id number] Completed 08/30/2022, 11/26/2019, 12/28/2013 Cologuard Discontinued Fecal Occult Blood Test Discontinued GARDASIL-HPV IMMUNIZATION SERIES Aged Out No longer eligible based on patient's age to complete this topic MENINGOCOCCAL (MENACTRA/MENVEO) Aged Out No longer eligible based on patient's age to complete this topic Sigmoidoscopy Discontinued documented as of this encounter Medical Devices Implanted Type Area Lock Tender Device Identifier Shelf Expiration Date Model / Serial / Lot Surface Articular - [id number] Implanted:Qty: 1 on 09/15/2009 [place] [facility] [place] Right[place] Knee [employer] 04/19/2015 00-5994-03 0-20 / / [id number] Clip Quick 2.8mm 230cm - [id number] Implanted:Qty: 1 on 07/25/2021 by Lisa Sullivan MD at ENDOSCOPY [facility] Colon [employer] 09/17/2023 [id number]-202UR.A / / [id number] documented as of this encounter Advance Directives Documents on File Type Date Recorded Patient Gear Machine Operator General Expl anation Advance Directives and Living Will [...] the patient have Health Care Power of Precision Mechanical Instrument Maker? No Care Teams Home Care Rn Relationship Specialty Start Date End Date Lila Ness MD [address] [place] [address] PCP - General Family Medicine 07/21/18 documented as of this encounter
--- OUTSIDE RECORDS SUMMARY | 2023-03-29 07:15 | External Medical Summary | Summary of Care ---
Author Name Unknown Organization [facility] Address [address] [place] [address] Phone [phone] Care Team Providers Care Block Breaker Operator Name Role Phone Mark Caal MD Primary Care Provider [phone]- [phone] Reason for Visit * Reason Comments Follow Up 3m Encounter Details Date Type Department Care Team Description 11/14/2022 Office Visit Hematology/Oncology [facility] [address] [facility] [place] [address] Alexander Harrell MD [address] [facility] [place] [address] Hepatic cirrhosis, unspecified hepatic cirrhosis type, unspecified whether ascites present (HCC)*; Anemia due to chronic blood loss; Personal history of other malignant neoplasm of skin Allergies Active Allergy Reactions Severity Noted Date [...] as of this encounter (statuses as of 11/14/2022) Medications Medication Sig Dispensed Refills Start Date [...] the morning. 90 Tablet 3 02/01/2022 Active Nadolol 20 MG Oral Tablet (Corgard) Take 1 Tablet (20 mg) by mouth at bedtime. 90 Tablet 3 03/28/2022 Active Spironolactone 50 MG Oral Tablet (Aldactone) [...] Tablet in the evening. 0 08/07/2022 Active documented as of this encounter (statuses as of 11/14/2022) Active Problems Problem Noted Date COPD, group [...] as of this encounter (statuses as of 11/14/2022) Resolved Problems Problem Noted Date Resolved Date [...] as of this encounter (statuses as of 11/14/2022) Immunizations Name Administration Dates Next Due COVID-19 mRNA, LNP-s, No Pre serve, 2-Dose Series ([employer]) 03/27/2021,08/16/2020,07/19/2020 Pneumococcal Conjugate Vacc, 13 Valent (Prevnar) [...] Sign Reading Time Taken Comments Blood Pressure 124/71 11/14/2022 2:28 PM EDT Pulse 55 11/14/2022 2:28 PM EDT Temperature 36.6 C (97.9 F) 11/14/2022 2:28 PM ED T Respiratory Rate 16 11/14/2022 2:28 PM EDT Oxygen Saturation 95% 11/14/2022 2:28 PM EDT Inhaled Oxygen Concentration - - Weight 76 kg (167 lb 9.6 oz) 11/14/2022 2:28 PM EDT Height - - Body Mass Index 31.68 09/07/2022 7:09 AM EDT documented in this [...] shopping? (15 years old or older) No 04/23/20 21 Cognitive Status Response Date of Assessm ent Because of a physical, menta l, or emotional condition, do you have serious difficulty concentrating, remembering, or making decisions? (5 years old or older No 09/09/2020 documented as of this encounter Progress Notes * Alexander Harrell MD - 11/14/2022 2:46 PM EDT Outpatient Consult Note Data Source: Patient, Epic record. Data Source: Patient, Epic record. 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 History ofStage IA left breast cancerER positive NM positive her 2 Charlette negative.Oncotype Dx score 21.Currently on anastrozole started in 10/2017 Iron Deficiency Anemia Current Treatment: Observation Previous Treatment: Anastrozole completed 5 years in 03/2022 Received monoferric iron infusion on 08/01/2022 Oncologic History : 72-year-old female with past medical history significant for hypertension, liver cirrhosis, GERD, history of breast cancer was referred because of the recent incidental finding on the CT scan of nonocclusive thrombus in the main portal vein. She was recently admitted to the hospital and discharged on 01/22/2022 with the fever, dry cough headache and decreased appetite.She was found to have COVID- 19 infection. She was also found to have pancytopenia and elevated liver enzyme. She was diagnosed liver cirrhosis about 3 years ago.This wasdiagnosedby imaging July 2018. Esophageal varicosewere found, now post banding. No historyof ascites or peripheral edema.She had a follow-up CT scan done on 03/27/2022 which revealed eccentric nonocclusive filling defectbeginning in the splenic vein and extending into the main portal vein measures 2.9 cm length.Liver was shrunken, especially the right lobe. Lobular contour. No steatosis. No masslike arterial phase hyperenhancing observation.Patient was referred for further management. She was diagnosed ofleft stage IA breast cancer ER positive NM positive her 2 Charlette negative which was found on screening mammogram. She did not feel any lumps or breast pain. She underwent bilateral screening mammogram August 20, 2017 which was abnormal and additional imaging was recommended. She had diagnostic left mammogram September 16, 2017 which showed a small hypoechoic irregular lesion at 5:00 position, 7 cm from nipple. She underwent ultrasound-guided core biopsy of the left breast September 26, 2017 and pathology revealed infiltrating carcinoma, no special type, grade 2 with focal mucinous differentiation. 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 Primary tumor was 1.2 cm, DCIS intermediate grade, invasive carcinoma was 5.5 mm from the posterior margin, final posterior margin was negative. Pathologic stage p T1c p N0 c M0. ER+ NM+ Her 2 charlette negative by FISH Oncotype Dx score 21 - Left breast biopsy 09/26/17 A. Left breast, sonographic core needle biopsy at 6:00: Infiltrating carcinoma, no special type, grade 2 with focal mucinous differentiation In-situ ductal carcinoma, intermediate grade without necrosis ER+ NM+ Her 2 charlette not amplified by FISH Lumpectomy and SLN biopsy 10/16/17 A. [place] lymph node, #1, left, excision: One lymph node, negative for metastatic carcinoma (0/1). CKAE-1,3 immunostain is negative. B. Cat tissue, left, excision: Benign fibrofatty tissue. Negative for lymphoid tissue. C. Breast, left, 6:00 lower outer quadrant, needle-localized excision: 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, 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 neoplasia type 2 (also known as intermediate-grade DCIS). Invasive carcinoma is 5.5mm from the closest margin (posterior). Note: Final Posterior margin is negative for invasive carcinoma. DIN-2 is 4.5mm from the closest margin (posterior). Note: Final Posterior margin is negative for DIN-2. (See Synoptic Data) D. Additional anterior and superior margins, left breast, margin re-excision: Negative for residual carcinoma. Benign mammary tissue. E. Additional medial margin, left breast, margin re-excision: Negative for residual carcinoma. Benign mammary tissue with fibrocystic changes. F. Additional anterior and inferior margins, left breast, margin re-excision: Negative for residual carcinoma. Benign mammary tissue. G. Additional lateral margin, left breast, margin re-excision: Negative for residual carcinoma. Benign mammary tissue. H. Additonal posterior margin, left breast, margin excision: Negative for residual carcinoma. Benign mammary tissue. Currently she is taking anastrozole started on 10/2017.Pt decreasedanastrozoledosage to 1/2 tab in Mar due to fatigue and arthritis pain Last DEXA bone density scan was done on 12/05/2021 which revealed high risk of fracture and compared to previous scan there was increase in the bone density. Currently she is taking vitamin D calciumand Prolia. Interval History: Overall clinically she is feeling better with improvement in energy level. Denies any bleeding, nausea, vomiting, fever, night sweats, weight loss, abdominal pain or distention, chest pain, shortnessof breath fever, night sweats, hematuria, hematochezia. LABS/IMAGING: Results for orders placed or performed in visit on 10/31/22 COMPREHENSIVE METABOLIC PANEL Result Value Ref Range BUN 11 6 - 20 mg/dL Creatinine 0.7 0.5 - 1.0 mg/dL Estimated Glomerular Filtration Rate 88 >=60 mL/min Sodium 138 135 - 146 mmol/L Potassium 4.4 3.5 - 5.1 mmol/L Chloride 103 98 - 107 mmol/L CO2 26 22 - 32 mmol/L Anion Gap 9 7 - 15 mmol/L Glucose 131 (H) 70 - 120 mg/dL Albumin 3.4 (L) 3.8 - 5.0 g/dL AST 59 (H) 10 - 35 U/L Alkaline Phosphatase 107 35 - 130 U/L Bilirubin, Total 1.0 <=1.2 mg/dL Calcium 8.7 8.4 - 10.2 mg/dL Protein 6.6 6.0 - 8.3 g/dL ALT 37 (H) 10 - 35 U/L FERRITIN Result Value Ref Range Ferritin 51 13 - 150 ng/mL IRON SCREEN, INCLUDING TIBC Result Value Ref Range Iron 87 33 - 151 ug/dL Iron Binding Capacity 345 250 - 425 ug/dL Transferrin Saturation Percent 25 15 - 55 % CBC Result Value Ref Range WBC 3.86 (L) 4.00 - 10.80 K/uL RBC 4.02 3.85 - 5.15 M/uL HGB 12.9 12.0 - 15.3 g/dL HCT 41.8 36.0 - 45.2 % MCV 104.0 81.5 - 97.5 fL MCH 32.1 27.0 - 34.0 pg MCHC 30.9 32.0 - 36.0 g/dL RDW 15.9 11.5 - 15.5 % PLT 106 (L) 140 - 400 K/uL MPV 11.1 6.6 - 11.1 fL nRBCs 0 <=0 /100 WBCs DIFFERENTIAL, AUTOMATED Result Value Ref Range WBC 3.86 (L) 4.00 - 10.80 K/uL Neutrophils % 50.3 40.0 - 75.0 % Lymphocytes % 28.2 18.0 - 42.0 % Monocytes % 16.6 (H) 1.0 - 11.0 % Eosinophils % 3.6 0.0 - 6.0 % Basophils % 0.8 0.0 - 2.0 % Immature Granulocytes % 0.5 0.0 - 2.0 % Absolute Neutrophils 1.94 1.80 - 7.70 K/uL Absolute Lymphocytes 1.09 1.00 - 4.80 K/ul Absolute Monocytes 0.64 0.00 - 1.10 K/uL Absolute Eosinophils 0.14 0.00 - 0.70 K/uL Absolute Basophils 0.03 0.00 - 0.20 K/uL Absolute Immature Granulocytes 0.02 0.00 - 0.20 K/uL *Note: Due to a large number of results and/or encounters for the requested time period, some results have not been displayed. A complete set of results can be found in Results Review. Hemoglobin is normal with rest of the blood tests and electrolytes in acceptable range. REVIEW OF SYSTEMS: General: No Fever, chills, night sweats, or weight loss. HEENT: No change in visual acuity, blurred or double vision. No epistaxis, facial pain, nasal discharge or change in hearing. Denies dysphagia, no muscosal ulceration, or sores noted. Cardiovascular: No chest pain, NEVAREZ, or palpitations Respiratory: No shortness of breath, cough, hemoptysis, or pleuritic chest pain Gastrointestinal: No abdominal pain, nausea, vomiting, diarrhea, rectal pain or bleeding Genitourinary: Denies Hematuria or dysuria Musculoskeletal: No bone pain Skin: No skin rash or lesions noted Neurologic: No numbness, weakness, neuropathic pain or change in cognitive function Psychiatric: No vegetative signs of depression Endocrine: No symptoms of hypothyroidism or hyperglycemia Hematologic: No bleeding or lymph nodes noted As mentioned above, all of the systems were reviewed in full and are unremarkable. Past Medical History: Diagnosis Date Asthma, moderate [...] 04/25 put on metoprolol Status asthmaticus, allergic Current Outpatient Medications Medication Sig Dispense Refill latanoprost (XALATAN) 0.005 % ophthalmic solution Instill [...] the morning and 2 Capsules at noon and2 Capsules before bedtime. Garlic 100 MG Oral Tablet Take 10 Tablets by mouth in the morning and 10 Tablets before bedtime. Restasis 0.05 % Ophthalmic Emulsion Instill 1 Drop into both eyes in the morning. amLODIPine Besylate 10 MG Oral Tablet (Norvasc) daily. Probiotic 250 MG Oral Capsule Take by mouth . culturalle probiotic - guaiFENesin 100 MG/5ML Oral Liquid (Robitussin) Take 10 mL by mouth every 6 hours as needed. Fexofenadine HCl 180 MG Oral Tablet (Giana) Take by mouth 1 Tablet daily as needed for Allergies. (Patient not taking: Reported on 07/31/2022) 30 Tablet 11 Levalbuterol HCl 1.25 MG/3ML Inhalation Nebulization Solution (Xopenex) Inhale via nebulizer 1 Ampule every 4 hours as needed for Wheezing. 72 mL 12 Montelukast Sodium 10 MG Oral Tablet (Singulair) Take by mouth 1 Tablet in the morning. 100 Tablet 2 Pantoprazole Sodium 40 MG Oral Tablet Delayed Release (Protonix) Take by mouth 1 Tablet in the morning. 90 Tablet 3 Nadolol 20 MG Oral Tablet (Corgard) Take 1 Tablet (20 mg) by mouth at bedtime. 90 Tablet 3 Spironolactone 50 MG Oral Tablet (Aldactone) Take 1 Tablet (50 mg) by mouth in the morning. 90 Tablet 2 Furosemide 20 MG Oral Tablet (Lasix) TAKE 1 TABLET BY MOUTH EVERY DAY IN THE MORNING 90 Tablet 2 Levalbuterol Tartrate 45 MCG/ACT Inhalation Aerosol (Xopenex HFA) Inhale 1 Puff by mouth every 4 hours as needed for Wheezing. 45 g 1 Fluticasone Propionate HFA 110 MCG/ACT Inhalation Aerosol (Flovent HFA) Inhale 2 Puffs by mouthin the morning and 2 Puffs before bedtime. 36 g 1 Sucralfate 1 GM/10ML Oral Suspension (Carafate) PLEASE SEE ATTACHED FOR DETAILED DIRECTIONS Famotidine 20 MG Oral Tablet (Pepcid) Take 1 Tablet by mouth in the morning and 1 Tablet in theevening. No current facility-administered medications for this visit. Social History Tobacco Use Smoking status: Never Smokeless tobacco: Never Vaping Use Vaping Use: Never used Substance Use Topics Alcohol use: No Drug use: No Review of patient's allergies indicates: Allergen Reactions [...] UP A TOLERANCE TO MED, DOESN'T WORK". PHYSICAL EXAMINATION: General Appearance: Healthy appearing patient in no acute distress BP 124/71 (BP Site: Right Arm, BP Position: Sitting, BP Cuff Size: Regular) | Pulse 55 | Temp 36.6 C (97.9 F) (Tympanic) | Resp 16 | Wt 76 kg (167 lb 9.6 oz) | SpO2 95% | BMI 31.68 kg/m | BSA 1.81 m Vitals reviewed. HEENT: No oral or pharyngeal masses, ulceration or thrush noted, no sinus tenderness. Neck is supple with no thyromegaly or JVD noted. Lymph Nodes: No lymphadenopathy noted in the occipital, pre and post auricular, cervical, supra andinfraclavicular, axillary, epitrochlear, inguinal, and popliteal region. Lungs/Thorax: Clear to auscultation, no accessory muscles of respiration being used. Heart: Regular rate and rhythm, normal S1, S2 Abdomen: Soft, nontender, bowel sounds present, no appreciable hepatosplenomegaly, no palpable masses Extremeties: Good pulses bilaterally, no peripheral edema. Skin: Normal skin tone with no rash, petechiae, ecchymosis noted. Musculoskeletal: No pain on palpation over bony prominence, no edema, no evidence of gout, no jointor bony deformity ASSESSMENT: 72-year-old female with past medical history significant for hypertension, liver cirrhosis, GERD, history of breast cancer was referred because of the recent incidental finding on the CT scan of nonocclusive thrombus in the main portal vein. Her history is also significant breast cancer and currently on half tablets of anastrozole. She also has osteoporosis with increased risk of fracture on the bone density scan and currently taking vitamin-D, calcium and Prolia. Clinical management of portal vein thrombosis remains ambiguous due to its heterogeneous presentations and its associations with liver disease, malignancy, and hypercoagulable states. The natural history and clinical outcome of portal vein thrombosis are highly variable, dependent upon size, extentand degree of the thrombotic occlusion, as well as the physiological impact of patient comorbidities. Management of asymptomatic and chronic portal vein thrombosis may need to be determined on a ghhm-of-ujmj basis and existing clinical data does not support routine anticoagulation of cirrhotic patients with asymptomatic PVT in the absence of underlying cancer. Her history is also significant for the breast cancer and currently on half tablets of anastrozole she has osteoporosis and currently on Prolia. She is taking anastrozole since 2018. She will complete the current supply of medication and then stop the anastrozole. She has low risk disease and the size of the tumor was 1.2 cm with negative lymph node. She also had iron deficiency anemia and received infusion. Her recent blood tests are in acceptablerange with normal hemoglobin. Discussed with the patient about diagnosis and reviewed all the available blood test result with her. PLAN: Return to clinic in 4 months with CBC, CMP, ferritin, iron screen The patient voiced understanding of all of the above. All questions and concerns were addressed in an apparently satisfactory manner. Alexander Harrell MD (This note was completed using the dictation program Fluency Direct. As such, there may be misspellings, word substitutions, or other variations that should not change the essence of the clinical content of this encounter note. If there is need for further clarification, please direct questions to me.) documented in this encounter Nursing Notes * Nereyda Mckeon CMA - 11/14/2022 2:28 PM EDT Patient identifed by name and birthdate Do you have any concerns about pain management for today's visit? No Living Will or Advance Directive for Health Care as noted on the problem list. [facility] is a way you can talk to your provider on line through e-mail. Would you like to sign up? I can activate it for you? ALREADY ACTIVE Filed Vitals: 11/14/22 1428 BP: 124/71 Pulse: 55 Resp: 16 Temp: 36.6 C (97.9 F) TempSrc: Tympanic SpO2: 95% Weight: 76 kg (167 lb 9.6 oz) Patient was instructed to not get up on the exam table/exam chair until directed and assisted by their provider; patient is to remain seated in the chair/ wheelchair/ exam table/ exam chair for fall prevention and safety reasons. Patient is aware to have assistance to step down off exam table/exam chair with personnel. Patient voiced full comprehension of instructions. documented in this encounter Plan of Treatment Upcoming Encounters Date Type Specialty Care Team Description 11/28/2022 Imaging Radiology 12/04/2022 Office Visit Gastroenterology Daniel Elizabeth MD [address] [place] [id number] 12/24/2022 Office Visit Family Medicine Mark Caal MD [address] [place] [address] 01/07/2023 Nurse Only Rheumatology Pf, Nurse Rheum [address] [place] [phone] 01/10/2023 Office Visit Dermatology Vanessa Fischer PA-C [address] [place] [address] [place] [phone] 03/18/2023 Office Visit Hematology Oncology Alexander Harrell MD [address] [place] [address] 07/17/2023 Office Visit Rheumatology Theresa Marshall PA-C Scheduled Orders Name Type Priority Associated Diagnoses Orde r Schedule CBC WITH WBC DIFFERENTIAL Lab Routine Hepatic cirrhosis, unspecified hepatic cirrhosis type, unspecified whether ascites present (HCC) Anemia due to chronic blood loss Personal history of other malignant neoplasm of skin Expected: 02/25/2023, Expires: 09/11/2023 COMPREHENSIVE METABOLIC PANEL Lab Routine Hepatic cirrhosis, unspecified hepatic cirrhosis type, unspecified whether ascites present (HCC) Anemia due to chronic blood loss Personal history of other malignant neoplasm of skin Expected: 02/25/2023, Expires: 09/11/2023 FERRITIN Lab Routine Hepatic cirrhosis, unspecified hepatic cirrhosis type, unspecified whether ascites present (HCC) Anemia due to chronic blood loss Personal history of other malignant neoplasm of skin Expected: 02/25/2023, Expires: 09/11/2023 IRON SCREEN, INCLUDING TIBC Lab Routine Hepatic cirrhosis, unspecified hepatic cirrhosis type, unspecified whether ascites present (HCC) Anemia due to chronic blood loss Personal history of other malignant neoplasm of skin Expected: 02/25/2023, Expires: 09/11/2023 Scheduled Procedures Name Priority Associated Diagnoses Date/Ti [...] 03/27/2021, 08/16/2020, 07/19/2020 Albumin/Creatinine Ratio 10/19/2022 10/19/2021 Mammogram 11/27/2022 11/27/2021, 07/0 05/2020, 11/16/2019, Additional history exists HbA1c 01/23/2023 07/23/2022, 01/18, 10/19/2021, Additional history exists Depression Screening, Annual for Pts 12 and Over 07/24/2023 07/23/2022, 08/05/2014 O2 ASSESSMENT COMPLETED IN PAST YEAR FOR COPD 09/08/2023 09/07/2022 DTaP,Tdap,and Td Vaccines (3 - Td or Tdap) 10/30/2023 10/29/2013, 07/26/2003, 04/19/2003 GFR 11/01/2023 10/31/2022, 08/18, 07/16/2022, Additional history exists DXA Scan 12/06/2023 12/05/2021, 07/0 11/2019, 11/18/2017, Additional history exists COLONOSCOPY-EVERY 3 YRS AGES 18-100 07/25/2024 07/25/2021, 07/25/2021, 08/25/2019, Additional history exists Lipid Panel 01/29/2027 01/29/2022, 10/18, 09/20/2008, Additional history exists Pneumococcal Vaccine: 65+ Years Completed 11/21/2018, 06/07/2017, 09/18/2011 Colonoscopy Discontinued 07/25/2021, 03/0 12/2021, 08/18/2018, Additional history exists Colorectal Cancer Screening Discontinued Influenza Vaccine (FLU shot) Completed 04/02/2022, 04/18/2021, 05/19/2018, Additional history exists VITAMIN D LEVEL ONCE IN A LIFETIME-USE SMARTSET# [id number] Completed 08/30/2022, 11/26/2019, 12/28/2013 Cologuard Discontinued Fecal Occult Blood Test Discontinued GARDASIL-HPV IMMUNIZATION SERIES Aged Out No longer eligible based on patient's age to complete this topic MENINGOCOCCAL (MENACTRA/MENVEO) Aged Out No longer eligible based on patient's age to complete this topic Sigmoidoscopy Discontinued documented as of this encounter Medical Devices Implanted Type Area Upsetter Setter Up Device Identifier Shelf Expiration Date Model / Serial / Lot Surface Articular - [id number] Implanted:Qty: 1 on 09/15/2009 at OR [facility] [place] [facility] Right: Knee [employer] 04/19/2015 [id number] / / [id number] Clip Quick 2.8mm 230cm - [id number] Implanted:Qty: 1 on 07/25/2021 by Lisa Sullivan MD at ENDOSCOPY [facility] Colon [employer] 09/17/2023 [id number] / / [id number] documented as of this encounter Visit Diagnoses Diagnosis Hepatic cirrhosis, unspecified hepatic cirrhosis type, unspecified whether ascites present (HCC)- Primary Anemia due to chronic blood loss Iron deficiency anemia secondary to blood loss (chronic) Personal history of other malignant neoplasm of skin documented in this encounter Advance Directives Documents on File Type Date Recorded Patient Frameman Expl anation Advance Directives and Living Will [...] the patient have Health Care Power of Contract Admin? No Care Teams Block Breaker Operator Relationship Specialty Start Date End Date Mark Caal MD [address] [place] [address] PCP - General Family Medicine 07/21/18 documented as of this encounter
--- OUTSIDE RECORDS SUMMARY | 2023-03-29 07:15 | External Medical Summary | Summary of Care ---
Author Name Unknown Organization [facility] Address [address] [place] [address] Phone [phone] Care Team Providers Care Tile Conduit Layer Name Role Phone Mark Caal MD Primary Care Provider [phone]- [phone] Reason for Visit * Reason Onset Date Comments Medication Problem 12/20/2022 Coreg Encounter Details Date Type Department Care Team Description 12/20/2022 Telephone Gastroenterology, [facility] [address] [place] [address] Daniel Elizabeth MD [address] [place] [address] Medication Problem (Coreg) Allergies Active Allergy Reactions [...] mRNA, LNP-s, No Pre serve, 2-Dose Series ([employer]) 03/27/2021,08/16/2020,07/19/2020 Pneumococcal Conjugate Vacc, 13 Valent (Prevnar) [...] Called patient to inform. Dr. Mora - [facility]. * Telephone Encounter - Sylvester Swenson RN [...] Only Rheumatology Pf, Nurse Rheum [address] [place] [address] 01/10/2023 Office Visit Dermatology Vanessa Fischer PA-C [address] [place] [address] [place] [address] 03/18/2023 Office Visit Hematology Oncology Alexander Harrell MD [address] [place] [address] 05/22/2023 Office Visit Gastroenterology Aniyah Mora DO [address] [place] [address] 07/17/2023 Office Visit Rheumatology Theresa Marshall PA-C [...] D LEVEL ONCE IN A LIFETIME-USE SMARTSET# [id number] Completed 08/30/2022, 11/26/2019, 12/28/2013 Cologuard Discontinued Fecal Occult Blood Test Discontinued GARDASIL-HPV IMMUNIZATION SERIES Aged Out No longer eligible based on patient's age to complete this topic MENINGOCOCCAL (MENACTRA/MENVEO) Aged Out No longer eligible based on patient's age to complete this topic Sigmoidoscopy Discontinued documented as of this encounter Medical Devices Implanted Type Area Slusher Operator Device Identifier Shelf Expiration Date Model / Serial / Lot Surface Articular - [id number] Implanted:Qty: 1 on 09/15/2009 at [place] [facility] [place] Right: Knee [employer] 04/19/2015 00-5994-03 0-20 / / [id number] Clip Quick 2.8mm 230cm - [id number] Implanted:Qty: 1 on 07/25/2021 by Lisa Sullivan MD at ENDOSCOPY [facility] Colon [employer] 09/17/2023 [id number]-202UR.A / / [id number] documented as of this encounter Advance Directives Documents on File Type Date Recorded Patient Toll Lineman Expl anation Advance Directives and Living Will [...] the patient have Health Care Power of Special Education Superintendent? No Care Teams Tile Conduit Layer Relationship Specialty Start Date End Date Mark Caal MD [address] [place] [facility] [place] [address] PCP - General Family Medicine 07/21/18 documented as of this encounter
--- OUTSIDE RECORDS SUMMARY | 2023-03-29 07:16 | External Medical Summary ---
Author Name Unknown Address Unknown Organization K01:LABORATORY [facility] [place] - [address] [place] [address] Laboratory Report Ordering Provider Test Date Status LINNETTE MALCOLM 10/31/2022 09:54:45 Final Observation Date Value Abnormality Reference (Units ) Status Ferritin 10/31/2022 09:54:45 51 13-150 (ng /mL) Final Postmenopausal women have hi gher ferritin levels than pre-menopausal women. The above reference interval is based on pre-menopausal women. Performing Location LABORATORY [facility] - [address] [place] [address]
--- OUTSIDE RECORDS SUMMARY | 2023-03-29 07:16 | External Medical Summary | Summary of Care ---
Author Name Unknown Organization [facility] Address [address] [place] [address] Phone [phone] Care Team Providers Care Gis Specialist Name Role Phone Mark Caal MD Primary Care Provider +1- [phone] Reason for Visit * Reason Comments Outpatient Testing Encounter Details Date Type Department Care Team Description 10/31/2022 Laboratory Laboratory, [place] [address] [place] [address] [place] [address] [place] [address] Hepatic cirrhosis, unspecified hepatic cirrhosis type, unspecified whether ascites present (HCC); Personal history of other malignant neoplasm of skin; Iron deficiency anemia due to chronic blood loss; Hypocalcemia Allergies Active Allergy Reactions Severity Noted Date [...] as of this encounter (statuses as of 10/31/2022) Medications Medication Sig Dispensed Refills Start Date [...] as of this encounter (statuses as of 10/31/2022) Active Problems Problem Noted Date COPD, group [...] as of this encounter (statuses as of 10/31/2022) Resolved Problems Problem Noted Date Resolved Date [...] as of this encounter (statuses as of 10/31/2022) Immunizations Name Administration Dates Next Due COVID-19 mRNA, LNP-s, No Pre serve, 2-Dose Series ([employer]) 03/27/2021,08/16/2020,07/19/2020 Pneumococcal Conjugate Vacc, 13 Valent (Prevnar) [...] Encounters Date Type Specialty Care Team Description 11/14/2022 Office Visit Hematology Oncology [facility] [address] [facility] [address] 11/28/2022 Imaging Radiology 12/04/2022 Office Visit Gastroenterology Daniel Elizabeth MD [address] [facility] [place] [address] 12/24/2022 Office Visit Family Medicine Mark Caal MD [address] [place] [address] 01/07/2023 Nurse Only Rheumatology Pf, Nurse Rheum [email or web address] [place] [address] 01/10/2023 Office Visit Dermatology Vanessa Fischre PAJenelle [address] [place] [address] [place] [address] 07/17/2023 Office Visit Rheumatology Theresa Marshall, MARY ANNC [address] [place] [address] Pending Results Name Type Priority Associated Diagnoses Date /Time CBC WITH WBC DIFFERENTIAL Lab Routine Hepatic cirrhosis, unspecified hepatic cirrhosis type, unspecified whether ascites present (HCC) Personal history of other malignant neoplasm of 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 10/31/2022 9:54 AM EDT COMPREHENSIVE METABOLIC PANEL Lab Routine Hepatic cirrhosis, unspecified hepatic cirrhosis type, unspecified whether ascites present (HCC) Personal history of other malignant neoplasm of 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 10/31/2022 9:54 AM EDT FERRITIN Lab Routine Hepatic cirrhosis, unspecified hepatic cirrhosis type, unspecified whether ascites present (HCC) Personal history of other malignant neoplasm of 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 10/31/2022 9:54 AM EDT IRON SCREEN, INCLUDING TIBC Lab Routine Hepatic cirrhosis, unspecified hepatic cirrhosis type, unspecified whether ascites present (HCC) Personal history of other malignant neoplasm of 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 10/31/2022 9:54 AM EDT CBC Lab Routine Hepatic cirrhosis, unspecified hepatic cirrhosis type, unspecified whether ascites present (HCC) Personal history of other malignant neoplasm of 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 10/31/2022 9:54 AM EDT DIFFERENTIAL, AUTOMATED Lab Routine Hepatic cirrhosis, unspecified hepatic cirrhosis type, unspecified whether ascites present (HCC) Personal history of other malignant neoplasm of 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 10/31/2022 9:54 AM EDT Scheduled Procedures Name Priority Associated Diagnoses Date/Ti [...] Pts 12 and Over 07/24/2023 07/23/2022, 08/05/2014 GFR 08/31/2023 08/30/2022, 06/21, 03/07/2022, Additional history exists O2 ASSESSMENT COMPLETED IN PAST YEAR FOR COPD 09/08/2023 09/07/2022 DTaP,Tdap,and Td Vaccines (3 - Td or Tdap) 10/30/2023 10/29/2013, 07/26/2003, 04/19/2003 DXA Scan 12/06/2023 12/05/2021, 07/0 11/2019, 11/18/2017, [...] D LEVEL ONCE IN A LIFETIME-USE SMARTSET# [id number] Completed 08/30/2022, 11/26/2019, 12/28/2013 Cologuard Discontinued Fecal Occult Blood Test Discontinued GARDASIL-HPV IMMUNIZATION SERIES Aged Out No longer eligible based on patient's age to complete this topic MENINGOCOCCAL (MENACTRA/MENVEO) Aged Out No longer eligible based on patient's age to complete this topic Sigmoidoscopy Discontinued documented as of this encounter Medical Devices Implanted Type Area Matlab Developer Device Identifier Shelf Expiration Date Model / Serial / Lot Surface Articular - [id number] Implanted:Qty: 1 on 09/15/2009 at [place] [facility] [place] Right: Knee [employer] 04/19/2015 00-5994-03 0-20 / / [id number] Clip Quick 2.8mm 230cm - [id number] Implanted:Qty: 1 on 07/25/2021 by Lisa Sullivan MD at ENDOSCOPY [facility] Colon [employer] 09/17/2023 [id number]-202UR.[id number] / / [id number] documented as of this encounter Visit Diagnoses Diagnosis Hepatic cirrhosis, unspecified hepatic cirrhosis type, unspecified whether ascites present (HCC) Personal history of other malignant neoplasm of 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 No Care Teams Gis Specialist Relationship Specialty Start Date End Date Mark Caal MD [address] [place] [address] PCP - General Family Medicine 07/21/18 documented as of this encounter
--- OUTSIDE RECORDS SUMMARY | 2023-03-29 07:16 | External Medical Summary ---
Author Name Unknown Address Unknown Organization K01:LABORATORY [facility] [place] - [address] [facility] [place] [address] Laboratory Report Ordering Provider Test Date Status LINNETTE MALCOLM 10/31/2022 09:54:45 Final Observation Date Value Abnormality Reference (Units ) Status BUN 10/31/2022 09:54:45 11 6-20 (mg/dL) Final Creatinine 10/31/2022 09:54:45 0.7 0.5-1.0 (mg/dL) Final Glomerular filtration rate/1.73 sq M.predicted [Volume Rate/Area] in Serum, Plasma or Blood by Creatinine-based formula (CKD-EPI) 10/31/2022 09:54:45 88 >=60 (mL/min) Final eGFR is calculated based on the CKD-EPI 2020 equation SODIUM 10/31/2022 09:54:45 138 135-146 (m mol/L) Final Potassium 10/31/2022 09:54:45 4.4 3.5-5.1 (m mol/L) Final Cl 10/31/2022 09:54:45 103 98-107 (mm ol/L) Final CO2 10/31/2022 09:54:45 26 22-32 (mmo l/L) Final Anion gap 10/31/2022 09:54:45 9 7-15 (mmol /L) Final Glucose 10/31/2022 09:54:45 131 Above high normal 70 -120 (mg/dL) Final Albumin 10/31/2022 09:54:45 3.4 Below low normal 3.8 -5.0 (g/dL) Final AST (Aspartate aminotransferase) 10/31/2022 09:54:45 59 Above high normal 10-35 (U/L) Final Alk Phos 10/31/2022 09:54:45 107 35-130 (U/ L) Final Bilirubin, Total 10/31/2022 09:54:45 1.0 <=1 .2 (mg/dL) Final Calcium 10/31/2022 09:54:45 8.7 8.4-10.2 ( mg/dL) Final Protein 10/31/2022 09:54:45 6.6 6.0-8.3 (g /dL) Final ALT (Alanine aminotransferase) 10/31/2022 09:54:45 37 Above high normal 10-35 (U/L) Final Performing Location LABORATORY [facility] [place] - [address] [facility] [address]
--- OUTSIDE RECORDS SUMMARY | 2023-03-29 07:16 | External Medical Summary ---
Author Name Unknown Address Unknown Organization K01:LABORATORY [facility] [place] - [address] [facility] [place] [address] Laboratory Report Ordering Provider Test Date Status LINNETTE MALCOLM 10/31/2022 09:54:45 Final Observation Date Value Abnormality Reference (Units ) Status SYNC LEUKOCYTES IN BLOOD BY AUTOMATED COUNT 10/31/2022 09:54:45 3.86 Below low normal 4.00-10.80 (K/uL) Final Segs 10/31/2022 09:54:45 50.3 40.0-75.0 (%) Final Lymphs % 10/31/2022 09:54:45 28.2 18.0-42.0 (%) Final Monos 10/31/2022 09:54:45 16.6 Above high normal 1.0-11.0 (%) Final Eosinophils 10/31/2022 09:54:45 3.6 0.0-6.0 (%) Final Basos 10/31/2022 09:54:45 0.8 0.0-2.0 (%) Final Immature Granulocyte, Percent 10/31/2022 09:54:45 0.5 0.0-2.0 (%) Final Absolute Segs 10/31/2022 09:54:45 1.94 1.80-7.70 (K/uL) Final Lymphs, absolute 10/31/2022 09:54:45 1.09 1.00-4.80 (K/ul) Final Monos, Abs 10/31/2022 09:54:45 0.64 0.00-1.10 (K/uL) Final Eos, Abs 10/31/2022 09:54:45 0.14 0.00-0.70 (K/uL) Final Basos, Abs 10/31/2022 09:54:45 0.03 0.00-0.20 (K/uL) Final Immature Granulocytes, Number 10/31/2022 09:54:45 0.02 0.00-0.20 (K/uL) Final Performing Location LABORATORY [facility] [place] - [facility] [place] [address]
--- OUTSIDE RECORDS SUMMARY | 2023-03-29 07:16 | External Medical Summary | Summary of Care ---
Author Name Unknown Organization [facility] Address [address] [place] [address] Phone [phone] Care Team Providers Care Distribution Sales Representative Name Role Phone Mark Caal MD Primary Care Provider +1- [phone] Reason for Visit * Reason Onset Date Comments Appointment Canceled 10/12/2022 Please canc el 2 appointments Encounter Details Date Type Department Care Team Description 10/12/2022 Telephone Rheumatology [facility] [address] [place] [address] Theresa Marshall PA-C [address] [place] [address] Appointment Canceled (Please cancel 2 appo... Allergies Active Allergy Reactions Severity Noted Date [...] as of this encounter (statuses as of 10/16/2022) Medications Medication Sig Dispensed Refills Start Date [...] as of this encounter (statuses as of 10/16/2022) Active Problems Problem Noted Date COPD, group [...] as of this encounter (statuses as of 10/16/2022) Resolved Problems Problem Noted Date Resolved Date [...] as of this encounter (statuses as of 10/16/2022) Immunizations Name Administration Dates Next Due COVID-19 mRNA, LNP-s, No Pre serve, 2-Dose Series ([employer]) 03/27/2021,08/16/2020,07/19/2020 Pneumococcal Conjugate Vacc, 13 Valent (Prevnar) [...] encounter Miscellaneous Notes * Telephone Encounter - KARAN Orosco - 10/16/2022 4:17 PM EDT Spoke to pt and cancelled 10/17 appt * Telephone Encounter - Suze Andrews LPN - 10/12/2022 3:17 PM EDT Please call the pt and cancel the follow appts, pt is double booked to get prolia injection. 10/17/22 and 04/24/23 Keep 01/07/23 and 07/17/23 appt. Thank you! documented in this encounter Plan of Treatment Upcoming Encounters Date Type Specialty Care Team Description 10/31/2022 Laboratory Laboratory [facility] [address] [place] [address] 11/14/2022 Office Visit Hematology Oncology Alexander Harrell MD [address] [place] [address] 11/28/2022 Imaging Radiology 12/04/2022 Office Visit Gastroenterology Daniel Elizabeth MD [address] [place] [address] 12/24/2022 Office Visit Family Medicine Mark Caal MD [address] [place] [address] 01/07/2023 Nurse Only Rheumatology Pf, Nurse Rheum [address] [place] [address] 01/10/2023 Office Visit Dermatology Vanessa Fischer PA-C [address] [place] [address] [place] [address] 07/17/2023 Office Visit Rheumatology Theresa Marshall PA-C [address] [place] [address] Scheduled Procedures Name Priority Associated Diagnoses [...] 3) 12/27/2013 11/01/2013 COVID-19 Vaccine (4 - Booster for Pfizer series) 05/22/2021 03/27/2021, 08/16/2020, 07/19/2020 Albumin/Creatinine [...] 10/29/2013, 07/26/2003, 04/19/2003 DXA Scan 12/06/2023 12/05/2021, 070 11/2019, 11/18/2017, Additional history exists COLONOSCOPY-EVERY 3 [...] D LEVEL ONCE IN A LIFETIME-USE SMARTSET# [id number] Completed 08/30/2022, 11/26/2019, 12/28/2013 Cologuard Discontinued Fecal Occult Blood Test Discontinued GARDASIL-HPV IMMUNIZATION SERIES Aged Out No longer eligible based on patient's age to complete this topic MENINGOCOCCAL (MENACTRA/MENVEO) Aged Out No longer eligible based on patient's age to complete this topic Sigmoidoscopy Discontinued documented as of this encounter Medical Devices Implanted Type Area Fountain Roller Assembler Device Identifier Shelf Expiration Date Model / Serial / Lot Surface Articular - [id number] Implanted:Qty: 1 on 09/15/2009 [place] [facility] [place] Right: Knee [employer] 04/19/2015 00-5994-03 0-20 / / [id number] Clip Quick 2.8mm 230cm - [id number] Implanted:Qty: 1 on 07/25/2021 by Lisa Sullivan MD at ENDOSCOPY [facility] Colon [employer] 09/17/2023 [id number]-202UR.A / / [id number] documented as of this encounter Advance Directives Documents on File Type Date Recorded Patient Core Dipper Expl anation Advance Directives and Living Will [...] the patient have Health Care Power of Security Associate? No Care Teams Distribution Sales Representative Relationship Specialty Start Date End Date Mark Caal MD [address] [place], [place] [id number] PCP - General Family Medicine 07/21/18 documented as of this encounter
--- OUTSIDE RECORDS SUMMARY | 2023-03-29 07:16 | External Medical Summary ---
Author Name Unknown Address Unknown Organization K01:LABORATORY [facility] - [address] [place] [address] Laboratory Report Ordering Provider Test Date Status LINNETTE MALCOLM 10/31/2022 09:54:45 Final Observation Date Value Abnormality Reference (Units ) Status Iron 10/31/2022 09:54:45 87 33-151 (ug /dL) Final Iron-binding capacity 10/31/2022 09:54:45 345 250-425 (ug/dL) Final Transferrin Sat % 10/31/2022 09:54:45 25 15 -55 (%) Final Performing Location LABORATORY [facility] - [address] [place] [address]
--- OUTSIDE RECORDS SUMMARY | 2023-03-29 07:16 | External Medical Summary ---
Author Name Unknown Address Unknown Organization K01:[place] [facility] [place] [facility] [address] [facility] [address] Laboratory Report Ordering Provider Test Date Status LINNETTE MALCOLM 10/31/2022 09:54:45 Final Observation Date Value Abnormality Reference (Units ) Status WBC, Total 10/31/2022 09:54:45 3.86 Below low normal 4.00-10.80 (K/uL) Final RBC 10/31/2022 09:54:45 4.02 3.85-5.15 (M/uL) Final Hemoglobin 10/31/2022 09:54:45 12.9 12.0-15.3 (g/dL) Final HCT 10/31/2022 09:54:45 41.8 36.0-45.2 (%) Final MCV 10/31/2022 09:54:45 104.0 81.5-97.5 (fL) Final MCH 10/31/2022 09:54:45 32.1 27.0-34.0 (pg) Final MCHC 10/31/2022 09:54:45 30.9 32.0-36.0 (g/dL) Final RDW 10/31/2022 09:54:45 15.9 11.5-15.5 (%) Final Platelets 10/31/2022 09:54:45 106 Below low normal 140-400 (K/uL) Final MPV 10/31/2022 09:54:45 11.1 6.6-11.1 (fL) Final Nucleated erythrocytes/100 leukocytes [Ratio] in Blood by Automated count 10/31/2022 09:54:45 0 <=0 (/100 WBCs) Final Performing Location [place] [facility] [place] [address] [place] [address]
--- OUTSIDE RECORDS SUMMARY | 2023-03-29 08:31 | External Medical Summary | Summary of Care ---
Author Name Unknown Organization [facility] Address [address] [place] [address] Phone [phone] Care Team Providers Care Parts Counter Representative Name Role Phone Mark Caal MD Primary Care Provider +1- [phone] Reason for Visit * Reason Onset Date Comments Order Request 03/22/2023 Encounter Details Date Type Department Care Team ([facility] st Contact Info) Description 03/22/2023 Telephone [facility] [address] [place] [address] Mark Caal MD [address] [place] [address] Order Request Allergies Active Allergy Reactions Criticality Noted Date [...] as of this encounter (statuses as of 03/22/2023) Medications Medication Sig Dispensed Refills Start Date [...] as of this encounter (statuses as of 03/22/2023) Active Problems Problem Noted Date Diagnosed Date [...] as of this encounter (statuses as of 03/22/2023) Resolved Problems Problem Noted Date Diagnosed Date [...] as of this encounter (statuses as of 03/22/2023) Immunizations Name Administration Dates Next Due COVID-19 mRNA, LNP-s, No Pre serve, 2-Dose Series ([employer]) 03/27/2021,08/16/2020,07/19/2020 Pneumococcal Conjugate Vacc, 13 Valent (Prevnar) [...] Telephone Encounter - Arjun Morrison MD - 03/22/2023 4:39 PM EDT Severe hyponatremia , Na 122 And hypoChloride , etc She needs to go to ER * Telephone Encounter - Pily Roland LPN - 03/22/2023 4:00 PM EDT No answer and on the mobile number there was no voicemail set up. Did call husbands phone and spokewith Juli and she asked for Dr. Morrison to call the ER and tell them what she needs evaluated for. * Telephone Encounter - Arjun Morrison MD - 03/22/2023 3:26 PM EDT Her yesterday blood test showed severe hypoNa Pt should go to ER [place] * Telephone Encounter - Dee Dee Da Silva OSA - 03/22/2023 2:42 PM EDT An order was requested for this patient. Name of Requesting Provider: Magdalenaterherminia Order Requested: medication for nausea Diagnosis/Reason for Request: nausea If order request is for Mammogram: Is the patient having any breast symptoms? N/A Is there a chance of ? N/A Has the patient had any breast problems in the past? NA What location AND department does the patient wish to have their order completed at? [facility] in [place] Fax Number, if applicable: na Call Back Number: [phone]-Pt is requesting call when order sent to pharmacy If the caller is not a current patient, please advise the patient to call their current PCP to havethe order's prior to being seen in our office. The patient was informed that our providers would not order anything (medication, labs, etc.) prior to being seen. documented in this encounter Plan of Treatment Upcoming Encounters Date Type Department Care Team (Late st Contact Info) Description 04/02/2023 11:00 AM EST Office Visit Hematology/Oncology [facility] [address] [facility] [place] [address] Della Zhong CRNP [address] [place] [address] [place] [address] 05/22/2023 3:00 PM EST Office Visit Hepatology, [facility] [address] [place] [address] Aniyah Mora DO [address] [place] [address] 07/16/2023 2:30 PM EST Office Visit Rheumatology [address] [place] [address] Bishop Quinones CRNP [address] [place] [address] 09/17/2023 2:40 PM EDT Office Visit [facility] [address] [facility] [place] [address] Mark Caal MD [address] [place] [address] Scheduled Procedures Name Priority Associated Diagnoses Date/Ti [...] 2023 04/02/2022, 04/18/2021, 05/19/2018, Additional history exists Depression Screening 07/24/2023 07/23/2022, 08/06/19 15 O2 ASSESSMENT COMPLETED IN PAST YEAR FOR COPD 09/08/2023 09/07/2022 HbA1c 09/19/2023 03/21/2023, 0310/2022, 01/29/2022, Additional history exists DTaP,Tdap,and Td Vaccines (3 - Td or Tdap) 10/30/2023 10/29/2013, 07/26/2003, 04/19/2003 Mammogram 11/29/2023 11/28/2022, 11/17, 11/17/2020, Additional history exists DXA Scan 12/06/2023 12/05/2021, 11/2019, 11/18/2017, Additional history exists Albumin/Creatinine Ratio 03/19/2024 023, 03/14/2023, 10/19/2021 GFR 03/21/2024 03/21/2023, 10/18, 08/30/2022, Additional history exists COLONOSCOPY-EVERY 3 YRS AGES 18-100 07/25/2024 07/25/2021, 07/25/2021, 08/25/2019, Additional history exists Lipid Panel 01/29/2027 01/29/2022, 10/18, 09/20/2008, Additional history exists Hepatitis C Screening Completed 04/08/2018 Pneumococcal Vaccine: 65+ Years Completed 11/21/2018, 06/07/2017, 09/18/2011 Colonoscopy Discontinued 07/25/2021, 12/2021, 08/18/2018, Additional history exists Colorectal Cancer Screening Discontinued VITAMIN D LEVEL ONCE IN A LIFETIME-USE SMARTSET# [id number] Completed 08/30/2022, 11/26/2019, 12/28/2013 Cologuard Discontinued Fecal Occult Blood Test Discontinued GARDASIL-HPV IMMUNIZATION SERIES Aged Out No longer eligible based on patient's age to complete this topic MENINGOCOCCAL (MENACTRA/MENVEO) Aged Out No longer eligible based on patient's age to complete this topic Sigmoidoscopy Discontinued documented as of this encounter Medical Devices Implanted Type Area Special Education Director Device Identifier Shelf Expiration Date Model / Serial / Lot Surface Articular - [id number] [place]ed:Q[place] 1 [place]2009 [place] [facility] [place] Knee [employer] 04/19/2015 00-5994-03 0-20 / / [id number] Clip Quick 2.8mm 230cm - [id number] Implanted:Qty: 1 on 07/25/2021 by Lisa Sullivan MD at ENDOSCOPY [facility] Colon [employer] 09/17/2023 [id number]-202UR.A / / [id number] documented as of this encounter Advance Directives Documents on File Type Date Recorded 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 No Care Teams Parts Counter Representative Relationship Specialty Start Date End Date Mark Caal MD [address] [place] [address] PCP - General Family Medicine 07/21/18 documented as of this encounter
--- OUTSIDE RECORDS SUMMARY | 2023-03-29 08:31 | External Medical Summary | Summary of Care ---
Author Name Unknown Organization [facility] Address [address] [place] [address] Phone [phone] Care Team Providers Care Laboratory Equipment Installer Name Role Phone Mark Caal MD Primary Care Provider [phone]- [phone] Reason for Visit * Reason Onset Date Comments Order Request 03/22/2023 Encounter Details Date Type Department Care Team ([facility] st Contact Info) Description 03/22/2023 Telephone [facility] [address] [place] [address] Mark Caal MD [address] [place] [address] Order Request Allergies Active Allergy [...] mRNA, LNP-s, No Pre serve, 2-Dose Series (YouTab) 03/27/2021,08/16/2020,07/19/2020 Pneumococcal Conjugate Vacc, 13 Valent (Prevnar) [...] encounter Miscellaneous Notes * Telephone Encounter - Pily Roland LPN [...] for this patient. Name of Requesting Provider: [place] Order Requested: medication for nausea Diagnosis/Reason for Request: nausea If order request is for Mammogram: Is the patient having any breast symptoms? N/A Is there a chance of ? N/A Has the patient had any breast problems in the past? NA What location AND department does the patient wish to have their order completed at? [facility] in [place] Fax Number, if applicable: na Call Back Number: [phone] is requesting call when order sent to [...] 04/02/2023 11:00 AM EST Office Visit Hematology/Oncology [facility] [address] [facility] [place] [address] Della Zhong CRNP [address] [facility] [place] [address] 05/22/2023 3:00 PM EST Office Visit [facility]atology, [facility] [address] [facility] [place] [address] Aniyah Mora DO [address] [place] [address] 07/16/2023 2:30 PM EST Office Visit Rheumatology [facility] [address] [place] [address] Bishop Quinones CRNP [address] [facility] [place] [address] 09/17/2023 2:40 PM EDT [address] [address] Mark Caal MD [address] [place] [address] Scheduled Procedures Name Priority Associated [...] Additional history exists DXA Scan 12/06/2023 12/05/2021, 070 11/2019, 11/18/2017, Additional history exists Albumin/Creatinine Ratio [...] D LEVEL ONCE IN A LIFETIME-USE SMARTSET# 29820 Completed 08/30/2022, 11/26/2019, 12/28/2013 Cologuard Discontinued Fecal Occult Blood Test Discontinued GARDASIL-HPV IMMUNIZATION SERIES Aged Out No longer eligible based on patient's age to complete this topic MENINGOCOCCAL (MENACTRA/MENVEO) Aged Out No longer eligible based on patient's age to complete this topic Sigmoidoscopy Discontinued documented as of this encounter Medical Devices Implanted Type Area Client Business Manager Device Identifier Shelf Expiration Date Model / Serial / Lot Surface Articular - [id number] Implanted:Qty: 1 on 09/15/2009 at [place] [facility] [place] Right: Knee [employer] 04/19/2015 [id number] 0-20 / / [id number] Clip Quick 2.8mm 230cm - [id number] Implanted:Qty: 1 on 07/25/2021 by Lisa Sullivan MD at [facility] Colon Living [employer] 09/17/2023 [id number] / / [id number] documented as of this encounter Advance Directives Documents on File Type Date Recorded Patient Marketing Ambassador Expl anation Advance Directives and Living Will [...] the patient have Health Care Power of Account Relationship Manager? No Care Teams Laboratory Equipment Installer Relationship Specialty Start Date End Date Mark Caal MD [address] [place] [address] PCP - General Family Medicine 07/21/18 documented as of this encounter
--- OUTSIDE RECORDS SUMMARY | 2023-03-29 08:31 | External Medical Summary | Summary of Care ---
Author Name Unknown Organization [facility] Address [address] [place] [address] Phone [phone] Care Team Providers Care Freight Elevator Operator Name Role Phone Mark Caal MD Primary Care Provider [phone]- [phone] Reason for Visit * Reason Onset Date Comments Order Request 03/22/2023 Encounter Details Date Type Department Care Team ([facility] st Contact Info) Description 03/22/2023 Telephone [facility] [address] [place] [address] Mark Caal MD [address] [...] mRNA, LNP-s, No Pre serve, 2-Dose Series ([employer]) 03/27/2021,08/16/2020,07/19/2020 Pneumococcal Conjugate Vacc, 13 Valent (Prevnar) [...] showed severe hypoNa [place] go [place] * Telephone Encounter - Dee Dee Da Silva OSA - 03/22/2023 2:42 PM EDT An order was requested for this patient. Name of Requesting Provider: Ten Order Requested: medication for nausea Diagnosis/Reason for Request: nausea If order request is for Mammogram: Is the patient having any breast symptoms? N/A Is there a chance of ? N/A Has the patient had any breast problems in the past? NA What location AND department does the patient wish to have their [facility] completed [facility] [place] Fax Number, if applicable: na Call Back Number: [phone]-Pt is requesting call when order sent to [...] 04/02/2023 11:00 AM EST Office Visit Hematology/Oncology [facility] [address] [facility] [place] [address] Della Zhong CRNP [address] [facility] [place] [address] 05/22/2023 3:00 PM EST Office Visit Hepatology, [facility] [address] [place] [address] Aniyah Mora DO [address] [place] [address] 07/16/2023 2:30 PM EST Office Visit Rheumatology [facility] [address] [facility] [place] [address] Bishop Quinones CRNP [address] [facility] [place] [address] 09/17/2023 2:40 PM EDT Office Visit [facility] [address] [place] [id number] Mark Caal MD [address] [place], [place] [id number] Scheduled Procedures Name Priority Associated Diagnoses Date/Ti [...] 3) 12/27/2013 11/01/2013 COVID-19 Vaccine (4 - season) 2023 03/27/2021, 08/16/2020, 07/19/2020 Influenza Vaccine (FLU shot) (#1) 2023 04/02/2022, 04/18/2021, 05/19/2018, Additional history exists Depression Screening 07/24/2023 07/23/2022, 08/06/19 15 O2 ASSESSMENT COMPLETED IN PAST YEAR FOR COPD 09/08/2023 09/07/2022 HbA1c 09/19/2023 03/21/2023, 030 10/2022, 01/29/2022, Additional history exists DTaP,Tdap,and Td Vaccines [...] D LEVEL ONCE IN A LIFETIME-USE SMARTSET# [id number] Completed 08/30/2022, 11/26/2019, 12/28/2013 Cologuard Discontinued Fecal Occult Blood Test Discontinued GARDASIL-HPV IMMUNIZATION SERIES Aged Out No longer eligible based on patient's age to complete this topic MENINGOCOCCAL (MENACTRA/MENVEO) Aged Out No longer eligible based on patient's age to complete this topic Sigmoidoscopy Discontinued documented as of this encounter Medical Devices Implanted Type Area Fruit Or Nut Farmworker Device Identifier Shelf Expiration Date Model / Serial / Lot Surface Articular - [id number] [place]planted:Q[place]: 1 [place] 09[place]15/2009 [place] [facility] [place] Knee [employer] 04/19/2015 [id number] 0-20 / / [id number] Clip Quick 2.8mm 230cm - [id number] Implanted:Qty: 1 on 07/25/2021 by Lisa Sullivan MD at [facility]OSCOPY [facility] Colon [employer] 09/17/2023 [id number] / / [id number] documented as of this encounter Advance Directives Documents on File Type Date Recorded Patient Plant Operations Vice President Expl anation Advance Directives and Living Will [...] the patient have Health Care Power of Rag Baler? No Care Teams Freight Elevator Operator Relationship Specialty Start Date End Date Mark Caal MD [address] [facility] [place] [address] PCP - General Family Medicine 07/21/18 documented as of this encounter
== END 2023-03-26 16:18 | disposition home or self-care (01) | DRG 641 ==
LOC: ED 16:48 → 4W 20:21 → SUATTDRO 20:21 → 4W 22:23

== ENCOUNTER 2023-05-15 16:13 | Inpatient (IN) ==
[2023-05-15 16:57] LABS: Basophils # (auto) 0.02 K/uL (0.00-0.20); Basophils % (auto) 0.2 %; Eosinophils # (auto) 0.07 K/uL (0.00-0.50); Eosinophils % (auto) 0.8 %; Hematocrit (blood only) 28.2 % (37.0-47.0); Hemoglobin 9.4 g/dl (12.0-16.0); Immature Granulocytes # (auto) 0.04 K/uL (0.01-0.20); Immature Granulocytes % (auto) 0.5 %; Lymphocytes # (auto) 1.09 K/uL (1.20-3.40); Lymphocytes % (auto) 12.6 %; Mean Corpuscular Hgb Conc 33.3 g/dL (32.0-36.0); Mean Corpuscular Volume 90.1 fL (80.0-100.0); Mean Platelet Volume 8.9 fL (9.4-12.4); Monocytes # (auto) 1.86 K/uL (0.11-0.59); Monocytes % (auto) 21.6 %; Neutrophils # (auto) 5.54 K/uL (1.40-6.50); Neutrophils % (auto) 64.3 %; Platelet Count 134 K/uL (130-400); RDW Coefficient of Variation 18.6 % (11.5-14.5); RDW Standard Deviation 60.4 fL (36.4-46.3); Red Blood Count 3.13 M/uL (4.20-5.40); White Blood Count 8.62 K/ul (4.8-10.8)
[2023-05-15 17:15] LABS: Albumin Globulin Ratio 0.7 (0.9-2); Albumin Level 2.5 gm/dl (3.4-5.0); BUN Creatinine Ratio 19.5 (10-20); Bilirubin,Total 2.6 mg/dl (0.2-1.0); Calcium 8.4 mg/dl (8.6-10.3); Creatinine Clr Calc Pharmacy 44.1 ml/min; Est GFR (African American) 48.7 ml/min; Globulin 3.8 gm/dl (2.5-4.0); Magnesium 1.5 mg/dl (1.7-2.4); Total Protein 6.3 gm/dl (6.0-8.3)
[2023-05-15 17:19] LABS: Troponin I High Sensitivity 13.8 pg/ml (0-14)
--- NOTE | 2023-05-15 17:28 | XRay Report ---
XR chest 1V portable CLINICAL HISTORY: Dyspnea. COMPARISON STUDY: Chest CT December 22, 2020. Chest radiograph March 22, 2023. FINDINGS: Marked elevation of the right hemidiaphragm is again noted. Apparent increased since prior exam is likely technical, related to kyphotic positioning. No pneumothorax or pleural effusion is pre sent. There is pulmonary vascular congestion without overt pulmonary edema. There is no consolidation to suggest pneumonia. IMPRESSION: 1. Pulmonary vascular congestion without overt pulmonary edema. 2. No significant change in marked elevation of the right hemidiaphragm. ACT 112: Negative or not required by law. Electronically signed by: Felipe Romo M.D. 05/15/2023 5:27 PM
[2023-05-15 17:30] LABS: INR 1.2 (0.9-1.1); Partial Thromboplastin Ratio 0.9; Partial Thromboplastin Time 24 Seconds (21-31)
[2023-05-15 17:53] LABS: Adenovirus PCR Not Detected (NotDetected); Bordetella parapertussis PCR Not Detected (NotDetected); Bordetella pertussis PCR Not Detected (NotDetected); Chlamydia pneumoniae PCR Not Detected (NotDetected); Coronavirus 229E PCR Not Detected (NotDetected); Coronavirus CoV-2 (COVID19)PCR Not Detected (NotDetected); Coronavirus HKU1 PCR Not Detected (NotDetected); Coronavirus NL63 PCR Not Detected (NotDetected); Coronavirus OC43PCR Not Detected (NotDetected); Human Metapneumovirus PCR Not Detected (NotDetected); Influenza A PCR Not Detected (NotDetected); Influenza B PCR Not Detected (NotDetected); Mycoplasma pneumoniae PCR Not Detected (NotDetected); Parainfluenza Virus 1 PCR Not Detected (NotDetected); Parainfluenza Virus 2 PCR Not Detected (NotDetected); Parainfluenza Virus 3 PCR Not Detected (NotDetected); Parainfluenza Virus 4 PCR Not Detected (NotDetected); Respiratory Syncytial VirusPCR Not Detected (NotDetected); Rhinovirus/Enterovirus PCR Not Detected (NotDetected)
[2023-05-15] MEDS ORDERED: FUROSEMIDE 40 MG/4 ML VIAL IV ONE (18:17)
[2023-05-15] MEDS ORDERED: MAGNESIUM SULFATE / D5W 1 GM/100 ML BAG IV ONE (18:17)
--- NOTE | 2023-05-15 18:32 | Emergency Department Note ---
Impression & Plan SOB (shortness of breath), Anasarca, Elevated LFTs, Hypomagnesemia ED Provider Note NAME: PAOLO CANDELARIA AGE: 73 SEX: Female INFORMANT: Patient ED PROVIDER(S): Umair Lea MD CHIEF COMPLAINT: Shortness of breath PLAN: Disposition: Admitted Outpatient prescription management: none Referral: None MEDICAL DECISION MAKING: Patient presented because of shortness of breath. She had a significant weight gain this month. Record review indicates that she is up almost 29 kg since March. She has anasarca on examination. Mild tachycardia but otherwise vital signs stable. IV was established and blood work obtained. Patient was found to have a mild anemia and slight elevation of her BNP. The patient's magnesium was mildly low as well. She did have IV Lasix administered. Given history of CHF and nonalcoholic cirrhosis further management in the hospital be necessary for fluid management and medication management. Consultation was made with the [facility] hospitalist. Case discussed and diagnostics were reviewed. Patient was evaluated in the ER for admission. Care/management discussed with: manager cafe Level of care consideration(s): After review of the information above and other included data, I feel the patient requires further management in the hospital Triage Nursing notes: reviewed and agree them. Vital Signs: reviewed and remarkable for mild tachycardia Additional History obtained from: none Chronic Medical/Social Conditions affecting care: Diabetes, CHF Prior/ Outside/ External records reviewed: none Differential Diagnosis: Reactive airway disease, pneumonia, pneumothorax, COPD, CHF, infections, cardiac ischemia, pulmonary embolism, musculoskeletal, gastrointestinal, as well as other pathologies. Diagnostics, independently interpreted by me: ECG: Twelve-lead ECG reveals sinus tachycardic rhythm at 105 bpm. Low voltage QRS. No ST elevation or depression. Cardiac Monitoring: Cardiac monitoring ordered by me: The patient was placed on continuous cardiac monitoring and observed. It revealed a normal sinus rhythm at 99 beats per minute without ectopy or evidence of dysrhythmia. Medical decision rules: none Imaging studies: Chest x-ray reveals right elevated hemidiaphragm and vascular congestion. No pneumonia. HPI: 73 year old Female arrives for evaluation of shortness of breath. Patient was referred from the [facility] outpatient clinic. She reports gaining over 18 pounds this month but has gained over 40 pounds in the last 3 months. She notes significant leg swelling and also some swelling in the left upper extremity as well. Her abdomen feels swollen. She has had some drainage from her legs as well. Family member had COVID about a week and a half ago. She denied any flulike symptoms. Patient has been using torsemide at home. Pt denies LOC, headache, fevers, chills, diaphoresis, neck pain, chest pain, nausea, vomiting, abdominal pain, back pain, melena, hematochezia, urinary symptoms, numbness, focal weakness, rash, or other complaints. PAST MEDICAL HISTORY: See Below, nonalcoholic cirrhosis, CHF, diabetes PAST SURGICAL HISTORY: See Below, SOCIAL HISTORY: See Below, retired HOME MEDICATIONS: See Below ALLERGIES: See Below VITALS: See Below PHYSICAL EXAMINATION: GENERAL: Awake, alert, mildly dyspneic-appearing, in no distress HENT: Normocephalic, atraumatic. Oropharynx unremarkable. EYES: Normal conjunctiva. Sclera non-icteric. NECK: Inspection normal. Non-tender. Supple. No nuchal rigidity. FROM. No masses. RESPIRATORY: Clear to auscultation. No wheezes. No rales. Normal respiratory effort. CARDIAC: Normal rate. Normal rhythm. No murmurs. No rubs. Extremities warm and well perfused. Pulses equal. No JVD. GI: Soft, non-distended. Abdominal wall edema noted. No tenderness to palpation. No rebound or guarding. No masses. RECTAL: Deferred. MUSCULOSKELETAL: Atraumatic. Chest examination reveals no tenderness. There is 3-4+ pitting edema on the lower extremities bilaterally. No significant focal tenderness. There is mild edema noted to the left upper extremity and minimally to the right upper extremity. NEURO: Normal sensorium. No sensory or motor deficits noted. SKIN: No rash or jaundice noted. PROCEDURES: none CRITICAL CARE: none OBSERVATION NOTE: none Past Med/Surg History Medical History Abnormal chest x-ray Asthma Bronchitis CAD (coronary artery disease) Chronic obstructive pulmonary disease Cirrhosis Cirrhosis of liver not due to alcohol Diverticulitis Esophageal varices hx of banding Fibromyalgia Glaucoma bilt HTN (hypertension) Incarcerated hernia of abdominal cavity Malignant neoplasm of left breast, stage 1, estrogen receptor positive (09/26/17) "Status post bilateral breast reduction in 1998 Status post abnormal left breast mammogram Status post ultrasound core needle biopsy September 26, 2017 Infiltrating carcinoma, grade 2 Estrogen receptor positive, progesterone receptor positive, 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 Status post needle localization lumpectomy and sentinel lymph node biopsy October 16, 2017 Stage pT1c pN0 M0 Status post completion of radiation therapy January 01, 2018. She received 5130 cGy utilizing hypo-fractionation." On 11/19/17 11:17 Blossom Brandt wrote "Status post bilateral breast reduction in 1998 Status post abnormal left breast mammogram Status post ultrasound core needle biopsy September 26, 2017 Infiltrating carcinoma, grade 2 Estrogen receptor positive, progesterone receptor positive, 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 Status post needle localization lumpectomy and sentinel lymph node biopsy October 16, 2017 Stage pT1c pN0 M0 Status post completion of radiation therapy January 01, 2018. She received 5130 centigrade utilizing hypo-fractionation. Migraine Osteoarthritis Paroxysmal atrial tachycardia Rectal vaginal fistula Sinus arrhythmia Thyroid goiter just monitoring for now Surgical History H/O arthroscopy of right knee H/O bilateral breast reduction surgery H/O tooth extraction all teeth removed H/O: hysterectomy History of appendectomy History of bilateral cataract extraction History of bilateral salpingo-oophorectomy (BSO) History of cholecystectomy History of closure of ileostomy 1998---1 month after created History of colonoscopy History of colostomy reversal 1997--8 weeks after colectomy History of ear surgery right ear "doctor broke my ear drum to drain the fluid" History of esophagogastroduodenoscopy (EGD) History of ileostomy 1999 History of incisional hernia repair x8 History of lumpectomy of left breast with lymph node removal History of needle biopsy left breast---malignant History of partial colectomy 1997--diverticuli pocket ruptured @ [facility] History of repair of rectocele History of surgical removal of ganglion cyst right wrist History of tonsillectomy and adenoidectomy History of total right knee replacement x2 Status post correction of deviated nasal septum Status post left foot surgery planter fascitis Status post trigger finger release right thumb Family History Sister Family history of diabetes mellitus Grandfather (Paternal) Family history of diabetes mellitus Family hx of colon cancer Grandfather (Maternal) Family history of diabetes mellitus Family/Other Family history of diabetes mellitus 2 cousins Other No family history of adverse response to anesthesia Social History Smoking Status: Never smoker Second Hand Exposure: Yes ( smoked); Do You Dip or Chew Tobacco: No; Hx Alcohol Use: No Hx Substance Use: No Preferred Language: [place] Communication Ability: Effective [employer] Required: No Beliefs That Will Affect Care: None marital status: Current Living Situation: Alone current occupational status: retired How many Children do You have: 1 Feels Safe at Home: Yes Assistive Devices: Cane Allergies Allergies Allergy/AdvReac Type Severity Reaction Status Date / Time albuterol Allergy Severe HIVES, Verified 05/15/23 17:57 DIFFICULTY WALKING, SHAKINESS, STUTTERING azithromycin Allergy Severe SHORT OF Verified 05/15/23 17:57 BREATH, PALPITATIONS tramadol Allergy Severe SEE COMMENT Verified 05/15/23 17:57 ibuprofen Allergy Intermediate Hives Verified 05/15/23 17:57 cephalexin AdvReac Severe "HEART Verified 05/15/23 17:57 PALPATIONS" morphine AdvReac Unknown PT STATES Verified 05/15/23 17:57 "BUILT UP A TOLERANCE TO MED, DOESN'T WORK". OPOIDS Allergy Severe DECREASE Uncoded 05/15/23 17:57 RESPIRATIONS--RECEIVED NARCAN Home Meds Home Medications Medication Instructions Recorded Confirmed calcium carbonate 600 mg-vitamin 1 cap PO BID 02/11/18 05/15/23 D3 10 mcg (400 unit) capsule latanoprost 0.005 % eye drops 1 drp OPB HS 04/11/18 05/15/23 montelukast 10 mg tablet 10 mg PO QAM 04/11/18 05/15/23 pantoprazole 40 mg tablet,delayed 40 mg PO DAILYBB 04/11/18 05/15/23 release levalbuterol tartrate 45 1 puff inhalation Q4H PRN Wheezing 11/11/18 05/15/23 mcg/actuation aerosol inhaler milk thistle seed extract 175 mg 175 mg PO QAM 01/21/19 05/15/23 tablet acetaminophen 650 mg 650 mg PO Q8H PRN Pain 07/14/20 05/15/23 tablet,extended release (Tylenol 8 Hour) cyclosporine 0.05 % eye drops in a 1 drp ophthalmic (eye) QAM 12/22/20 05/15/23 dropperette (Restasis) cinnamon bark 500 mg capsule 1,000 mg PO TID 01/20/22 05/15/23 (Cinnamon) fluticasone propionate 110 2 puff inhalation AMPM 01/20/22 05/15/23 mcg/actuation HFA aerosol inhaler garlic 100 mg tablet 1,000 mg PO BID 01/20/22 05/15/23 Lactobacillus rhamnosus GG 10 1 cap PO DAILY 05/15/23 05/15/23 billion cell capsule (Culturelle) docusate sodium 100 mg capsule 100 mg PO TID PRN Constipation 05/15/23 05/15/23 iron,carbonyl 65 mg-vitamin C 125 1 tab PO HS 05/15/23 05/15/23 mg tablet,delayed release (Vitron-C) lactulose 10 gram/15 mL (15 mL) 45 g PO DAILY PRN constipation 05/15/23 05/15/23 oral solution levalbuterol HCl 1.25 mg/3 mL 1.25 mg inhalation Q4H PRN Wheezing 05/15/23 05/15/23 solution for nebulization potassium chloride 20 mEq 40 meq PO QAM 05/15/23 05/15/23 tablet,extended release psyllium husk 6 gram oral powder 6 g PO TID PRN Constipation 05/15/23 05/15/23 packet torsemide 100 mg tablet 100 mg PO QAM 05/15/23 05/15/23 Previous Rx's Medication Instructions Recorded blood sugar diagnostic (Medical Technologies InternationalTouch #50 ea 07/15/20 Verio test strips) lancets 30 gauge (OneTouch Delica #100 ea 07/15/20 Lancets) guaifenesin 100 mg/5 mL oral 200 mg (10 mL) PO Q6H PRN cough 01/22/22 liquid (Cough Syrup) #473 mL sodium di- and 1 tab PO BID #60 tabs 03/26/23 monophosphate-potassium phos monobasic 250 mg tablet (Phospha Neutral) Results & Data (ED) Vital Signs Vital Signs - 24 hr 05/15/23 16:25 05/15/23 16:25 05/15/23 16:42 Temperature 36.5 C Temperature Source Oral Pulse Rate 104 H Respiratory Rate 22 Blood Pressure 116/74 Blood Pressure Mean 88 Pulse Oximetry 97 97 96 Oxygen Delivery Method Room Air Room Air Room Air Oxygen Flow Rate 0 Sepsis Recent Fever Within 48 Hours No Sepsis New/Unexplained Change in Mental Status N/A Sepsis Action Taken by Nursing Physician Notified Laboratory Data 05/15/23 16:40 05/15/23 16:40 Lab Results 05/15/23 05/15/23 Range/Units 16:39 16:40 WBC 8.62 (4.8-10.8) K/ul RBC 3.13 L (4.20-5.40) M/uL Hgb 9.4 L (12.0-16.0) g/dl Hct 28.2 L (37.0-47.0) % MCV 90.1 (80.0-100.0) fL MCH 30.0 (25.0-34.0) pg MCHC 33.3 (32.0-36.0) g/dL RDW Std Deviation 60.4 H (36.4-46.3) fL RDW Coeff of Monster 18.6 H (11.5-14.5) % Plt Count 134 (130-400) K/uL MPV 8.9 L (9.4-12.4) fL Immature Gran % (Auto) 0.5 % Neut % (Auto) 64.3 % Lymph % (Auto) 12.6 % [place] % (Auto) 21.6 % Eos % (Auto) 0.8 % Baso % (Auto) 0.2 % Neut # (Auto) 5.54 (1.40-6.50) K/uL Lymph # (Auto) 1.09 L (1.20-3.40) K/uL [place] # (Auto) 1.86 H (0.11-0.59) K/uL Eos # (Auto) 0.07 (0.00-0.50) K/uL Baso # (Auto) 0.02 (0.00-0.20) K/uL Immature Gran # (Auto) 0.04 (0.01-0.20) K/uL PT 13.0 H (9.0-12.0) Seconds INR 1.2 H (0.9-1.1) APTT 24 (21-31) Seconds PTT Ratio 0.9 Sodium 133 L (136-145) mmol/L Potassium 5.0 (3.5-5.1) mmol/L Chloride 98 (98-107) mmol/L Carbon Dioxide 28 (21-32) mmol/L Anion Gap 7 (3-11) BUN 25 H (6-23) mg/dl Creatinine 1.28 H (0.6-1.2) mg/dl Est Cr Clr Drug Dosing 44.1 ml/min Est GFR ( Amer) 48.7 ml/min Est GFR (Non-Af Amer) 42.0 ml/min BUN/Creatinine Ratio 19.5 (10-20) Glucose 101 H (70-99(Fasting)) mg/dl Calcium 8.4 L (8.6-10.3) mg/dl Magnesium 1.5 L (1.7-2.4) mg/dl Total Bilirubin 2.6 H (0.2-1.0) mg/dl AST 48 H (13-39) U/L ALT 22 (7-52) U/L Alkaline Phosphatase 176 H (34-104) U/L Troponin I High Sens 13.8 (0-14) pg/ml B-Natriuretic Peptide 103 H (0-100) pg/ml Total Protein 6.3 (6.0-8.3) gm/dl Albumin 2.5 L (3.4-5.0) gm/dl Globulin 3.8 (2.5-4.0) gm/dl Albumin/Globulin Ratio 0.7 L (0.9-2) Adenovirus (PCR) Not Detected (NotDetected) B. pertussis DNA (PCR) Not Detected (NotDetected) B.parapertussis DNA PCR Not Detected (NotDetected) C. pneumoniae DNA (PCR) Not Detected (NotDetected) Coronavirus OC43 (PCR) Not Detected (NotDetected) Coronavirus HKU1 (PCR) Not Detected (NotDetected) Coronavirus 229E (PCR) Not Detected (NotDetected) SARS-CoV-2 (PCR) Not Detected (NotDetected) Coronavirus NL63 (PCR) Not Detected (NotDetected) Human Metapneumovir PCR Not Detected (NotDetected) Influenza Type A (PCR) Not Detected (NotDetected) Influenza Type B (PCR) Not Detected (NotDetected) M. pneumoniae (PCR) Not Detected (NotDetected) Parainfluenza 1 (PCR) Not Detected (NotDetected) Parainfluenza 2 (PCR) Not Detected (NotDetected) Parainfluenza 3 (PCR) Not Detected (NotDetected) Parainfluenza 4 (PCR) Not Detected (NotDetected) RSV (PCR) Not Detected (NotDetected) Entero/Rhino (PCR) Not Detected (NotDetected) Imaging Data Radiologist's Impression: Chest X-Ray 05/15/23 16:27 XR chest 1V portable CLINICAL HISTORY: Dyspnea. COMPARISON STUDY: Chest CT December 22, 2020. Chest radiograph March 22, 2023. FINDINGS: Marked elevation of the right hemidiaphragm is again noted. Apparent increased since prior exam is likely technical, related to kyphotic positioning. No pneumothorax or pleural effusion is present. There is pulmonary vascular congestion without overt pulmonary edema. There is no consolidation to suggest pneumonia. IMPRESSION: 1. Pulmonary vascular congestion without overt pulmonary edema. 2. No significant change in marked elevation of the right hemidiaphragm. ACT 112: Negative or not required by law. Electronically signed by: Felipe Romo M.D. 05/15/2023 5:27 PM Discharge Plan Visit Data Chief Complaint: Shortness of Breath/Dyspnea ED Provider: Umair Lea Discharge Problem: SOB (shortness of breath), Anasarca, Elevated LFTs, Hypomagnesemia Forms Stand Alone Forms: [facility] Prescriptions Prescriptions: No Action calcium carbonate-vitamin D3 600 mg(1,500mg) -400 unit capsule 1 cap PO BID levalbuterol tartrate 45 mcg/actuation HFA aerosol inhaler 1 puff inhalation Q4H PRN (Reason: Wheezing) acetaminophen [Tylenol 8 Hour] 650 mg Tablet Extended Release 650 mg PO Q8H PRN (Reason: Pain) (DME) OneTouch Verio test strips Strip See Rx Instructions .ROUTE .MEDSUPPLY Qty: 50 0RF Rx Instructions: Check Blood sugar levels once per day as advised (DME) lancets [OneTouch Delica Lancets] 30 gauge misc See Rx Instructions .ROUTE .MEDSUPPLY Qty: 100 0RF Rx Instructions: Check Blood sugar levels once per day as advised latanoprost 0.005 % drops 1 drp OPB HS pantoprazole 40 mg tablet,delayed release (DR/EC) 40 mg PO DAILYBB montelukast 10 mg tablet 10 mg PO QAM milk thistle seed extract 175 mg Tablet 175 mg PO QAM cyclosporine [Restasis] 0.05 % Dropperette 1 drp OPHTHALMIC (EYE) QAM cinnamon bark [Cinnamon] 500 mg Capsule 1,000 mg PO TID fluticasone propionate 110 mcg/actuation HFA aerosol inhaler 2 puff INHALATION AMPM garlic 100 mg Tablet 1,000 mg PO BID guaifenesin [Cough Syrup] 100 mg/5 mL liquid 200 mg PO Q6H PRN (Reason: cough) Qty: 473 0RF Phospha 250 Neutral 250 mg Tablet 1 tab PO BID Qty: 60 0RF torsemide 100 mg tablet 100 mg PO QAM docusate sodium 100 mg Capsule 100 mg PO TID PRN (Reason: Constipation) levalbuterol HCl 1.25 mg/3 mL Solution For Nebulization 1.25 mg INHALATION Q4H PRN (Reason: Wheezing) Culturelle 10 billion cell Capsule 1 cap PO DAILY Vitron-C 65 mg iron- 125 mg Tablet,Delayed Release (Dr/Ec) 1 tab PO HS psyllium husk 6 gram Powder In Packet 6 g PO TID PRN (Reason: Constipation) potassium chloride 20 mEq tablet extended release 40 meq PO QAM lactulose 10 gram/15 mL (15 mL) solution 45 g PO DAILY PRN (Reason: constipation) Referrals Referrals: Mark Caal MD [Primary Care Provider] -
--- NOTE | 2023-05-15 19:24 | History & Physical Report ---
Date of Service May 15, 2023 Assessment & Plan (1) Anasarca: Plan: Has history of cirrhosis and diastolic heart failure Has been taking torsemide 100 mg daily Gained about 20 pounds since February Will give 60 mg Lasix twice daily and monitor intake output Fluid intake restricted to 1200 mL a day Monitor PRP and electrolytes (2) Acute diastolic (congestive) heart failure: Plan: Has history of hypertensive heart disease and failure History of atrial tachycardia Last echo on 28 February showed normal LV size with mild concentric LVH, LV wall motion is normal, EF 65 to 70%, grade 1 diastolic dysfunction, left atrium is mildly dilated and there is trace tricuspid regurgitation and Doppler findings do not suggest pulmonary hypertension Chest x-ray suggestive of congestive change EKG has tachycardia undetermined rhythm but likely in sinus rhythm Will get cardiology evaluation Echo has been requested Started on 60 mg Lasix twice daily (3) Cirrhosis: Plan: History of cirrhosis of the liver Has been on lactulose will continue No signs and symptoms of encephalopathy Odium level has been reasonable Will continue current management and may need GI evaluation (4) SOB (shortness of breath): Plan: Likely secondary to above (5) Acute renal failure: Plan: Creatinine was normal at 0.75 on 26 March Creatinine has gone up to 1.28 as of 05/15/2023 Has been getting 60 mg Lasix IV twice daily from today Will ask for nephrology evaluation (6) HTN (hypertension): Plan: Blood pressure remains stable (7) Asthma: Plan: No acute symptoms DVT prophylaxis Subcu heparin CODE STATUS Cussed with the patient DNR/DNI History of Present Illness Chief Complaint: Increasing edema all over the body,significant weight gain and exertional shortness of breath Primary Care Provider: Mark Caal MD She is a 73-year-old female with significant past medical history including cirrhosis of liver, COPD, hypertensive heart disease with heart failure, type 2 diabetes, paroxysmal atrial tachycardia, hypertension, hyperlipidemia, gastroesophageal reflux disease, and primary open-angle glaucoma apparently has been complaining of increasing swelling of the legs abdomen associated with exertional shortness of breath for the last 3 to 4 weeks. She was last seen by her PCP sometime in February and at that time she was having minimal swelling and her weight was 198 pounds and today it is 210 pounds. She has been taking torsemide 100 mg a day since February and is not showing any improvement of the edema. With increasing edema of the extremity and inability to move around she called her PCP and was advised to come to the hospital for further evaluation. Denies any chest pain or palpitation. No abdominal pain, nausea or vomiting. Denies any problem with urine and bowel habit. Urine volume remains to be as less. In ER she was noted to be in anasarca, minimal shortness of breath at rest with tachycardia, chest x-ray did not show pulmonary congestion and EKG was in sinus rhythm. She will be given intravenous Lasix and will be admitted to telemetry unit. Allergies Allergy/AdvReac Type Severity Reaction Status Date / Time albuterol Allergy Severe HIVES, Verified 05/15/23 17:57 DIFFICULTY WALKING, SHAKINESS, STUTTERING azithromycin Allergy Severe SHORT OF Verified 05/15/23 17:57 BREATH, PALPITATIONS tramadol Allergy Severe SEE COMMENT Verified 05/15/23 17:57 ibuprofen Allergy Intermediate Hives Verified 05/15/23 17:57 cephalexin AdvReac Severe "HEART Verified 05/15/23 17:57 PALPATIONS" morphine AdvReac Unknown PT STATES Verified 05/15/23 17:57 "BUILT UP A TOLERANCE TO MED, DOESN'T WORK". OPOIDS Allergy Severe DECREASE Uncoded 05/15/23 17:57 RESPIRATIONS--RECEIVED NARCAN Home Medications Medication Instructions Recorded Confirmed Type calcium carbonate 600 mg-vitamin 1 cap PO BID 02/11/18 05/15/23 History D3 10 mcg (400 unit) capsule latanoprost 0.005 % eye drops 1 drp OPB HS 04/11/18 05/15/23 History montelukast 10 mg tablet 10 mg PO QAM 04/11/18 05/15/23 History pantoprazole 40 mg tablet,delayed 40 mg PO DAILYBB 04/11/18 05/15/23 History release levalbuterol tartrate 45 1 puff inhalation Q4H PRN Wheezing 11/11/18 05/15/23 History mcg/actuation aerosol inhaler milk thistle seed extract 175 mg 175 mg PO QAM 01/21/19 05/15/23 History tablet acetaminophen 650 mg 650 mg PO Q8H PRN Pain 07/14/20 05/15/23 History tablet,extended release (Tylenol 8 Hour) blood sugar diagnostic (MatchMineTouch #50 ea 07/15/20 Rx Verio test strips) lancets 30 gauge (OneTouch Delica #100 ea 07/15/20 Rx Lancets) cyclosporine 0.05 % eye drops in a 1 drp ophthalmic (eye) QAM 12/22/20 05/15/23 History dropperette (Restasis) cinnamon bark 500 mg capsule 1,000 mg PO TID 01/20/22 05/15/23 History (Cinnamon) fluticasone propionate 110 2 puff inhalation AMPM 01/20/22 05/15/23 History mcg/actuation HFA aerosol inhaler garlic 100 mg tablet 1,000 mg PO BID 01/20/22 05/15/23 History guaifenesin 100 mg/5 mL oral 200 mg (10 mL) PO Q6H PRN cough 01/22/22 05/15/23 Rx liquid (Cough Syrup) #473 mL sodium di- and 1 tab PO BID #60 tabs 03/26/23 05/15/23 Rx monophosphate-potassium phos monobasic 250 mg tablet (Phospha Neutral) Lactobacillus rhamnosus GG 10 1 cap PO DAILY 05/15/23 05/15/23 History billion cell capsule (Culturelle) docusate sodium 100 mg capsule 100 mg PO TID PRN Constipation 05/15/23 05/15/23 History iron,carbonyl 65 mg-vitamin C 125 1 tab PO HS 05/15/23 05/15/23 History mg tablet,delayed release (Vitron-C) lactulose 10 gram/15 mL (15 mL) 45 g PO DAILY PRN constipation 05/15/23 05/15/23 History oral solution levalbuterol HCl 1.25 mg/3 mL 1.25 mg inhalation Q4H PRN Wheezing 05/15/23 05/15/23 History solution for nebulization potassium chloride 20 mEq 40 meq PO QAM 05/15/23 05/15/23 History tablet,extended release psyllium husk 6 gram oral powder 6 g PO TID PRN Constipation 05/15/23 05/15/23 History packet torsemide 100 mg tablet 100 mg PO QAM 05/15/23 05/15/23 History Past Med/Surg History Medical History (Updated 05/15/23 @ 19:24 by Enedelia Melvin MD) Paroxysmal atrial tachycardia Abnormal chest x-ray Bronchitis Cirrhosis Incarcerated hernia of abdominal cavity Osteoarthritis Fibromyalgia Cirrhosis of liver not due to alcohol Thyroid goiter just monitoring for now Glaucoma bilt Migraine Sinus arrhythmia Chronic obstructive pulmonary disease Esophageal varices hx of banding Diverticulitis Malignant neoplasm of left breast, stage 1, estrogen receptor positive (09/26/17) "Status post bilateral breast reduction in 1998 Status post abnormal left breast mammogram Status post ultrasound core needle biopsy September 26, 2017 Infiltrating carcinoma, grade 2 Estrogen receptor positive, progesterone receptor positive, 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 Status post needle localization lumpectomy and sentinel lymph node biopsy October 16, 2017 Stage pT1c pN0 M0 Status post completion of radiation therapy January 01, 2018. She received 5130 cGy utilizing hypo-fractionation." On 11/19/17 11:17 Blossom Brandt wrote "Status post bilateral breast reduction in 1998 Status post abnormal left breast mammogram Status post ultrasound core needle biopsy September 26, 2017 Infiltrating carcinoma, grade 2 Estrogen receptor positive, progesterone receptor positive, 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 Status post needle localization lumpectomy and sentinel lymph node biopsy October 16, 2017 Stage pT1c pN0 M0 Status post completion of radiation therapy January 01, 2018. She received 5130 centigrade utilizing hypo-fractionation. Rectal vaginal fistula Asthma HTN (hypertension) CAD (coronary artery disease) Surgical History (Updated 04/04/23 @ 00:12 by Background Daemon) Status post left foot surgery planter fascitis Status post trigger finger release right thumb History of surgical removal of ganglion cyst right wrist History of repair of rectocele History of incisional hernia repair x8 History of ileostomy 1998 History of closure of ileostomy 1998---1 month after created History of bilateral salpingo-oophorectomy (BSO) History of colonoscopy History of appendectomy History of esophagogastroduodenoscopy (EGD) History of needle biopsy left breast---malignant History of lumpectomy of left breast with lymph node removal History of tonsillectomy and adenoidectomy Status post correction of deviated nasal septum History of ear surgery right ear "doctor broke my ear drum to drain the fluid" History of bilateral cataract extraction History of total right knee replacement x2 H/O arthroscopy of right knee History of cholecystectomy History of colostomy reversal 1997--8 weeks after colectomy History of partial colectomy 1997--diverticuli pocket ruptured @ [facility] H/O bilateral breast reduction surgery H/O: hysterectomy H/O tooth extraction all teeth removed Family History Sister Family history of diabetes mellitus Grandfather (Paternal) Family history of diabetes mellitus Family hx of colon cancer Grandfather (Maternal) Family history of diabetes mellitus Family/Other Family history of diabetes mellitus 2 cousins Other No family history of adverse response to anesthesia Social History Smoking Status: Never smoker Second Hand Exposure: Yes ( smoked); Do You Dip or Chew Tobacco: No; Hx Alcohol Use: No Hx Substance Use: No Preferred Language: Georgian Communication Ability: Effective Director Of Counterintelligence Required: No Beliefs That Will Affect Care: None marital status: Current Living Situation: Alone current occupational status: retired How many Children do You have: 1 Feels Safe at Home: Yes Assistive Devices: Cane Review of Systems Review of Systems: All systems reviewed and are unremarkable except as noted below Physical Exam Physical Exam: Lying in bed with minimal shortness of breath Constitutional: well developed, well nourished, + ill appearing and + obese Eyes: PERRL, conjunctivae normal, anicteric sclerae ENMT: external ear and nose normal, oropharynx normal Neck: trachea midline, no thyromegaly Respiratory: + respiratory distress (Minimal distress at rest) Auscultation: + diminished lung sounds and + crackles (Minimal bibasilar crackles) Cardiovascular: Rate/Rhythm: regular rate, regular rhythm and + tachycardic Heart Sounds: normal S1 and normal S2; no murmur Extremities: + edema (3+ edema bilaterally) Gastrointestinal (Abdomen): Inspection/Auscultation: + abdomen distended, normal bowel sounds and + abdominal edema (Abdominal wall edema) Percussion/Palpation: abdomen soft; abdomen nontender Musculoskeletal: No acute arthritis involving any of the joint Neurologic: Alert, awake and oriented x 3. Generally weak but no focal sensory or motor deficit appreciated Lymphatic: no cervical or axillary lymphadenopathy Results & Data Results & Data Vital Signs (Past 12 Hours) Vital Signs Temp Pulse Resp BP Pulse Ox O2 Del Method O2 Flow Rate 05/15/23 16:42 96 Room Air 05/15/23 16:25 97 Room Air 0 05/15/23 16:25 36.5 C 104 H 22 116/74 97 Room Air Laboratory Results Short CBC 05/15/23 Range/Units 16:40 WBC 8.62 (4.8-10.8) K/ul Hgb 9.4 L (12.0-16.0) g/dl Hct 28.2 L (37.0-47.0) % Plt Count 134 (130-400) K/uL BMP 05/15/23 16:40 Sodium 133 L Potassium 5.0 Chloride 98 Carbon Dioxide 28 BUN 25 H Creatinine 1.28 H Glucose 101 H Calcium 8.4 L Liver Function 05/15/23 Range/Units 16:40 Total Bilirubin 2.6 H (0.2-1.0) mg/dl AST 48 H (13-39) U/L ALT 22 (7-52) U/L Alkaline Phosphatase 176 H (34-104) U/L Albumin 2.5 L (3.4-5.0) gm/dl Medications Administered Current Inpatient Medications Furosemide (Furosemide 40 Mg/4 Ml Vial) 60 mg IV BID [facility] Stop: 06/14/23 20:59 Magnesium Sulfate/Dextrose (Magnesium Sulfate / D5w) 1 gm in 100 mls @ 50 mls/hr IV ONE ONE Stop: 05/15/23 20:16 Last Admin: 05/15/23 18:51 Dose: 50 mls/hr
[2023-05-15] MEDS: FUROSEMIDE 40 MG/4 ML VIAL IV SCH (20:48)
[2023-05-15] MEDS ORDERED: LEVALBUTEROL 1.25 MG/3 ML NEB INH PRN (21:10)
[2023-05-15] MEDS ORDERED: LACTULOSE SYRUP 30 GM/45 ML UDP PO PRN (21:10)
[2023-05-15] MEDS ORDERED: NON-FORMULARY MEDICATION (Blood Sugar Diagnostic [Onetouch Verio Test Strips] strip) SCH (21:10)
[2023-05-15] MEDS ORDERED: LEVALBUTEROL TARTRATE 15 GM HFA.AER.AD INH PRN (21:10)
[2023-05-15] MEDS ORDERED: DOCUSATE SODIUM 100 MG CAP PO PRN (21:10)
[2023-05-15] MEDS ORDERED: NON-FORMULARY MEDICATION (Iron,Carbonyl-Vitamin C [Vitron-C] 65 mg iron- 125 mg Tablet,Del PO SCH (21:10)
[2023-05-15] MEDS ORDERED: guaiFENesin SUGAR FREE 100 MG/5 ML UDC PO PRN (21:10)
[2023-05-15] MEDS ORDERED: PSYLLIUM or GUAR GUM FIBER POWDER PACKET PO PRN (21:23)
[2023-05-15 21:35] LABS: Appearance Urine Clear (Clear); Bilirubin Urine Negative (Negative); Blood Urine Negative (Negative); Color Urine Dark Yellow; Glucose Urine UA Negative (Negative); Ketones Urine Negative (Negative); Leukocyte Esterase Urine Negative (Negative); Nitrite Urine Negative (Negative); Protein Urine Negative (Negative); Specific Gravity Urine 1.013 (1.000-1.030); Urobilinogen Urine Negative (Negative); pH Urine 5.5 (4.5-7.5)
[2023-05-15] MEDS: CALCIUM 600MG + VIT D 400 IU TAB PO SCH (22:10)
[2023-05-15] MEDS: POT PHOSPHATE MONOBASIC W/ SOD TAB PO SCH (22:10)
[2023-05-15] MEDS: LATANOPROST 0.005% OP SOLN 2.5 ML BTL OPB SCH (22:12)
[2023-05-15] MEDS: INSULIN ASPART PER UNIT CHARGE SC SCH (22:15)
--- OUTSIDE RECORDS SUMMARY | 2023-05-15 23:09 | External Medical Summary | Summary of Care ---
Author Name Unknown Organization [facility] Address [address] [place] [address] Phone [phone] Care Team Providers Care Associate Director Of Development Name Role Phone Mark Caal MD Primary Care Provider [phone] Encounter Details Date Type Department Care Team (Late st Contact Info) Description 05/03/2023 Telephone Care Coordination and Integration [address], [place] [id number] Trinidad Tyler, KARAN [address], [place] [id number] Allergies Active Allergy Reactions Criticality Noted Date [...] as of this encounter (statuses as of 05/06/2023) Medications Medication Sig Dispensed Refills Start Date [...] THE MORNING 90 Tablet 3 02/21/2023 Active Phospha 250 Neutral 155-852-130 MG Oral Tablet Take 1 Tablet by mouth in the morning and 1 Tablet before bedtime. 0 Active Lactulose Encephalopathy 10 GM/15ML Oral Solution Take 45 mL by mouth daily as needed for Constipation. 2838 mL 3 03/28/2023 Active Iron-Vitamin C 65-125 MG Oral Tablet (Vitron C)Indications:Anemia due to chronic blood loss Take 1 Tablet by mouth at bedtime. 90 Tablet 3 04/02/2023 Active Additional Information Patient not taking.Reported on 04/19/2023 Potassium Chloride ER 20 MEQ Oral Tablet Extended Release Take 2 Tablets by mouth in the morning. 180 Tablet 1 04/25/2023 Active Torsemide 100 MG Oral Tablet (Demadex) Take 1.5 Tablets by mouth in the morning. 90 Tablet 3 04/25/2023 Active documented as of this encounter (statuses as of 05/06/2023) Active Problems Problem Noted Date Diagnosed Date [...] as of this encounter (statuses as of 05/06/2023) Resolved Problems Problem Noted Date Diagnosed Date [...] as of this encounter (statuses as of 05/06/2023) Immunizations Name Administration Dates Next Due COVID-19 mRNA, LNP-s, No Pre serve, 2-Dose Series (Pfizer) 03/27/2021,08/16/2020,07/19/2020 Pneumococcal Conjugate Vacc, 13 Valent (Prevnar) 06/07/2017 Pneumococcal Polysaccharide PPV23 (Pneumovax) 11/21/2018,09/18/2011 Seasonal Influenza, PF, 6 M & above, IM , (FluLaval or Fluzone) 05/19/2018,06/07/2017 Seasonal Influenza, Quadriva lent Hd (Fluzone Hd) 04/02/2023,04/02/2022,04/18/2021 Seasonal Influenza, Split, I IV3, With Preserve, [...] 07/23/2022 Hunger Vital Sign Answer Date Recorded Within the past 12 months, y ou worried that your food would run out before you got the money to buy more. Never true 03/06/20 23 Within the past 12 months, t he food you bought just didn't last and you didn't have money to get more. Never true 03/06/2023 Sex and Gender Information Value Date Recorded [...] or making decisions? (5 years old or older) No 09/09/2020 documented as of this encounter Miscellaneous Notes * Telephone Encounter - Henna Taylor RN - 05/06/2023 3:54 PM EST See CM note Henna Taylor RN * Telephone Encounter - Trinidad Tyler OSA - 05/03/2023 3:03 PM EST Received phone call from member requesting to speak with CM, she states that she is home now, wouldnot specify reason for call other than CM is her go between her and Dr. Caal. Member can be reached at [phone]. documented in this encounter Plan of Treatment Upcoming Encounters Date Type Department Care Team (Late st Contact Info) Description 05/22/2023 3:00 PM EST Office Visit [facility], [facility] [address] Aniyah Mora DO [address] [facility] [place] [address] 07/01/2023 4:00 PM EST Office Visit Nephrology, [address] [place] [address] Mahsa Calvo MD [address] [place] [address] [place] [address] 07/03/2023 2:00 PM EST Laboratory Laboratory, [facility] [address] [facility] [phone] [facility] [address] [facility] [address] 07/16/2023 2:30 PM EST Office Visit Rheumatology [place] [phone] [facility] [place] [address] Bishop Quinones CRNP [address] [place] [address] [place] [address] 09/17/2023 2:40 PM EDT Office Visit [facility] [address] [facility], [place] [phone] Mark Caal MD [address] [place] [address] 09/24/2023 2:00 PM EDT Laboratory Laboratory, [facility] [address] [facility] [place] [phone] Karen Olivos [address] [facility] [place] [address] 10/01/2023 2:00 PM EDT Office Visit Hematology/Oncology [facility] [address] [place] [address] Della Zhong CRNP [address] [facility] [place] [address] Scheduled Procedures Name Priority Associated Diagnoses Date/Ti [...] of 3) 12/27/2013 11/01/2013 COVID-19 Vaccine ( - season) 2023 03/27/2021, 08/16/2020, 07/19/2020 Depression Screening 07/24/2023 07/23/2022, 08/06/19 15 O2 ASSESSMENT COMPLETED IN PAST YEAR FOR COPD 09/08/2023 09/07/2022 HbA1c 09/19/2023 03/21/2023, 03/0 10/2022, 01/29/2022, Additional history exists DTaP,Tdap,and Td Vaccines (3 - Td or Tdap) 10/30/2023 10/29/2013, 07/26/2003, 04/19/2003 Mammogram 11/29/2023 11/28/2022, 0705/2021, 11/17/2020, Additional history exists DXA Scan 12/06/2023 12/05/2021, 11/2019, 11/18/2017, Additional history exists Albumin/Creatinine Ratio 03/19/2024 023, 03/14/2023, 10/19/2021 GFR 04/30/2024 04/30/2023, 08/2022, 04/17/2023, Additional history exists COLONOSCOPY-EVERY 3 YRS AGES 18-100 07/25/2024 07/25/2021, 07/25/2021, 08/25/2019, Additional history exists Lipid Panel 01/29/2027 01/29/2022, 10/18, 09/20/2008, Additional history exists Hepatitis C Screening Completed 04/08/2018 Pneumococcal Vaccine: 65+ Years Completed 11/21/2018, 06/07/2017, 09/18/2011 Colonoscopy Discontinued 07/25/2021, 12/2021, 08/18/2018, Additional history exists Colorectal Cancer Screening Discontinued VITAMIN D LEVEL ONCE IN A LIFETIME-USE SMARTSET# [id number] Completed 08/30/2022, 11/26/2019, 12/28/2013 Influenza Vaccine (FLU shot) Completed 04/02/2023, 04/02/2022, 04/18/2021, Additional history exists Cologuard Discontinued Fecal Occult Blood Test Discontinued GARDASIL-HPV IMMUNIZATION SERIES Aged Out No longer eligible based on patient's age to complete this topic MENINGOCOCCAL (MENACTRA/MENVEO) Aged Out No longer eligible based on patient's age to complete this topic Sigmoidoscopy Discontinued documented as of this encounter Medical Devices Implanted Type Area Producer Assistant Device Identifier Shelf Expiration Date Model / Serial / Lot Surface Articular - [id number] Implanted:Qty: 1 on 09/15/2009 at OR [facility] Right: Knee [employer] 04/19/2015 [id number] 0-20 / / [id number] Clip Quick 2.8mm 230cm - [id number] Implanted:Qty: 1 on 07/25/2021 by Lisa Sullivan MD at ENDOSCOPY [facility] Colon Peak Rx #2 INC 09/17/2023 [id number] / / [id number] documented as of this encounter Advance Directives Documents on File Type Date Recorded Patient Home Furnishings Sales Representative Expl anation Advance Directives and Living [...] the patient have Health Care Power of Taxation Consultant? No Care Teams Associate Director Of Development Relationship Specialty Start Date End Date Mark Caal MD [address] [place] [address] PCP - General Family Medicine 07/21/18 documented as of this encounter
--- OUTSIDE RECORDS SUMMARY | 2023-05-15 23:09 | External Medical Summary ---
Author Name Unknown Address Unknown Organization [facility] [address] [place] [address] Laboratory Report Ordering Provider Test Date Status BOBO FULLER 04/22/2023 13:17:53 Final Observation Date Value Abnormality Reference (Units ) Status BUN 04/22/2023 13:17:53 23 Above high normal 6-20 (mg/dL) Final Creatinine 04/22/2023 13:17:53 1.2 Above high normal 0.5-1.0 (mg/dL) Final Glomerular filtration rate/1.73 sq M.predicted [Volume Rate/Area] in Serum, Plasma or Blood by Creatinine-based formula (CKD-EPI) 04/22/2023 13:17:53 49 Below low normal >=60 (mL/min) Final eGFR is calculated based on the CKD-EPI 2020 equation SODIUM 04/22/2023 13:17:53 134 Below low normal 135 -146 (mmol/L) Final Potassium 04/22/2023 13:17:53 3.0 Below low normal 3.5 -5.1 (mmol/L) Final Cl 04/22/2023 13:17:53 92 Below low normal 98- 107 (mmol/L) Final CO2 04/22/2023 13:17:53 30 22-32 (mmo l/L) Final Anion gap 04/22/2023 13:17:53 12 7-15 (mmol /L) Final Glucose 04/22/2023 13:17:53 112 70-120 (mg /dL) Final Calcium 04/22/2023 13:17:53 8.4 8.4-10.2 ( mg/dL) Final Performing Location [facility] [place] [address]
--- OUTSIDE RECORDS SUMMARY | 2023-05-15 23:09 | External Medical Summary | Summary of Care ---
Author Name Unknown Organization [facility] Address [address] [place] [address] Phone [phone] Care Team Providers Care Boat Officer Name Role Phone Mark Caal MD Primary Care Provider +1- [phone] Encounter Details Date Type Department Care Team (Late st Contact Info) Description 04/25/2023 Telephone Nephrology, [address] [address] Mahsa Calvo MD [address] [place] [id number] Allergies Active Allergy Reactions Criticality Noted Date [...] as of this encounter (statuses as of 04/25/2023) Medications Medication Sig Dispensed Refills Start Date [...] Iron-Vitamin C 65-125 MG Oral Tablet (Vitron C)Indications:Anemi a due to chronic blood loss Take 1 [...] the morning. 90 Tablet 3 04/25/2023 Active Torsemide 100 MG Oral Tablet (Demadex) Take 1 Tablet by mouth in the morning. 90 Tablet 3 04/19/2023 3 Discontinu ed(Refill) Potassium Chloride ER 20 MEQ Oral Tablet Extended Release Take 1 Tablet by mouth in the morning. 90 Tablet 1 04/19/2023 3 Discontinu ed(Refill) documented as of this encounter (statuses as of 04/25/2023) Active Problems Problem Noted Date Diagnosed Date [...] as of this encounter (statuses as of 04/25/2023) Resolved Problems Problem Noted Date Diagnosed Date [...] as of this encounter (statuses as of 04/25/2023) Immunizations Name Administration Dates Next Due COVID-19 mRNA, LNP-s, No Pre serve, 2-Dose Series ([facility]) 03/27/2021,08/16/2020,07/19/2020 Pneumococcal Conjugate Vacc, 13 Valent (Prevnar) [...] encounter Miscellaneous Notes * Telephone Encounter - Mahsa Calvo MD - 04/25/2023 1:13 PM EST Called patient to discuss blood work. Potassium is low. I have asked her to take 2 and half tabletsdaily. He is also reporting less drop in her weight. Will increase torsemide 150 mg daily. Mahsa Calvo MD documented in this encounter Plan of Treatment Upcoming Encounters Date Type Department Care Team (Late st Contact Info) Description 05/22/2023 3:00 PM EST [facility] [address] Aniyah Mora DO [facility] [place] [address] 07/01/2023 4:00 PM EST Office Visit Nephrology, [address] [place] [address] Mahsa Calvo MD [address] [place] [address] [place] [address] 07/03/2023 2:00 PM EST Laboratory Laboratory, [facility] [address] [facility] [place] [phone] [facility] [address] 07/16/2023 2:30 PM EST Office Visit Rheumatology [place] [phone] [facility] [place] [address] Bishop Quinones CRNP [address] [place] [address] 09/17/2023 2:40 PM EDT Office Visit [facility] [address] [facility] [phone] Mark Caal MD [address] [place] [address] 09/24/2023 2:00 PM EDT Laboratory Laboratory, [facility] 132 [facility] [place] [phone] Karen Olivo 132 [facility] [place] [address] 10/01/2023 2:00 PM EDT Office Visit Hematology/Oncology [facility] [place] 200 [facility] [address] Della Zhong CRNP 400 [facility] [place] [id number] Scheduled Orders Name Type Priority Associated Diagnoses Orde r Schedule BASIC METABOLIC PANEL Lab Routine Stage 3a chronic kidney disease (HCC) Expected: 04/30/2023, Expires: 04/25/2024 Scheduled Procedures Name Priority Associated Diagnoses Date/Ti [...] Vaccine ( season) 2023 03/27/2021, 08/16/2020, 07/19/2020 Depression Screening [...] Albumin/Creatinine Ratio 03/19/2024 023, 03/14/2023, 10/19/2021 GFR 04/22/2024 04/22/2023, 03/21, 04/02/2023, Additional history exists COLONOSCOPY-EVERY 3 YRS AGES 18-100 07/25/2024 07/25/2021, 07/25/2021, 08/25/2019, Additional history exists Lipid Panel 01/29/2027 01/29/2022, 10/18, 09/20/2008, Additional history exists Hepatitis C Screening Completed 04/08/2018 Pneumococcal Vaccine: 65+ Years Completed 11/21/2018, 06/07/2017, 09/18/2011 Colonoscopy Discontinued 07/25/2021, 12/2021, 08/18/2018, Additional history exists Colorectal Cancer Screening Discontinued VITAMIN D LEVEL ONCE IN A LIFETIME-USE SMARTSET# [id number] Completed 08/30/2022, 11/26/2019, 12/28/2013 Influenza Vaccine (FLU [...] this encounter Medical Devices Implanted Type Area Practice Performance Manager Device Identifier Shelf Expiration Date Model / Serial / Lot Surface Articular - [id number] Implanted:Qty: 1 on 09/15/2009 at OR [facility] Right: Knee [employer] 04/19/2015 00-5994-03 0-20 / / [id number] Clip Quick 2.8mm 230cm - [id number] Implanted:Qty: 1 on 07/25/2021 by Lisa Sullivan MD at ENDOSCOPY [facility] Colon [employer] 09/17/2023 HX-202UR.A / / [id number] documented as of this encounter Visit Diagnoses Diagnosis Stage 3a chronic kidney disease (HCC)- Primary documented in this encounter Advance Directives Documents on File Type Date Recorded Patient Academic Interventionist Expl anation Advance Directives and Living Will [...] the patient have Health Care Power of Human Resources Benefits Manager? No Care Teams Boat Officer Relationship Specialty Start Date End Date Mark Caal MD [address] [place] [address] PCP - General Family Medicine 07/21/18 documented as of this encounter
--- OUTSIDE RECORDS SUMMARY | 2023-05-15 23:09 | External Medical Summary ---
Author Name Unknown Address Unknown Organization [facility] [address] [place] [address] Laboratory Report Ordering Provider Test Date Status BOBO FULLER 04/30/2023 13:21:49 Final Observation Date Value Abnormality Reference (Units ) Status BUN 04/30/2023 13:21:49 21 Above high normal 6-20 (mg/dL) Final Creatinine 04/30/2023 13:21:49 1.1 Above high normal 0.5-1.0 (mg/dL) Final Glomerular filtration rate/1.73 sq M.predicted [Volume Rate/Area] in Serum, Plasma or Blood by Creatinine-based formula (CKD-EPI) 04/30/2023 13:21:49 53 Below low normal >=60 (mL/min) Final eGFR is calculated based on the CKD-EPI 2020 equation SODIUM 04/30/2023 13:21:49 135 135-146 (m mol/L) Final Potassium 04/30/2023 13:21:49 3.7 3.5-5.1 (m mol/L) Final Cl 04/30/2023 13:21:49 94 Below low normal 98- 107 (mmol/L) Final CO2 04/30/2023 13:21:49 29 22-32 (mmo l/L) Final Anion gap 04/30/2023 13:21:49 12 7-15 (mmol /L) Final Glucose 04/30/2023 13:21:49 105 70-120 (mg /dL) Final Calcium 04/30/2023 13:21:49 8.2 Below low normal 8.4 -10.2 (mg/dL) Final Performing Location [facility] [place] [address]
--- OUTSIDE RECORDS SUMMARY | 2023-05-15 23:09 | External Medical Summary | Summary of Care ---
Author Name Unknown Organization [facility] Address [address] [place] [address] Phone [phone] Care Team Providers Care Disk Recoater Name Role Phone Mark Caal MD Primary Care Provider +1- [phone] Encounter Details Date Type Department Care Team (Late st Contact Info) Description 05/03/2023 Telephone Care Coordination and Integration [address] [place] [address] Trinidad Tyler, KARAN [address] [place], [place] [phone] Allergies Active Allergy Reactions Criticality Noted Date [...] as of this encounter (statuses as of 05/03/2023) Medications Medication Sig Dispensed Refills Start Date [...] as of this encounter (statuses as of 05/03/2023) Active Problems Problem Noted Date Diagnosed Date [...] as of this encounter (statuses as of 05/03/2023) Resolved Problems Problem Noted Date Diagnosed Date [...] as of this encounter (statuses as of 05/03/2023) Immunizations Name Administration Dates Next Due COVID-19 [...] encounter Miscellaneous Notes * Telephone Encounter - Trinidad Tyler OSA - 05/03/2023 3:03 PM EST Received phone call from member requesting to speak with CM, she states that she is home now, wouldnot specify reason for call other than CM is her go between her and Dr. Caal. Member can be reached at [phone]. documented in this encounter Plan of Treatment Upcoming Encounters Date Type Department Care Team (Late st Contact Info) Description 05/22/2023 3:00 PM EST Office Visit Hepatology, [facility] [place] [address] Aniyah Mora DO 132 [facility] [place] [address] 07/01/2023 4:00 PM EST Office Visit Nephrology, [address] [place] [address] Mahsa Calvo MD 400 [facility] [place], [place] [phone] 07/03/2023 2:00 PM EST Laboratory Laboratory, [facility] [address] [facility] [place] [phone] Karen Olivo [facility] 132 [facility] [address] 07/16/2023 2:30 PM EST Office Visit Rheumatology [facility] [address] [place] [address] Bishop Quinones CRNP [address] [place] [address] 09/17/2023 2:40 PM EDT Office Visit [facility] [address] [place] [phone] Mark Caal MD [address] [place] [address] 09/24/2023 2:00 PM EDT Laboratory Laboratory, [facility] 132 [facility] [place] [phone] Karen Olivo [address] [facility] [place] [address] 10/01/2023 2:00 PM EDT Office Visit Hematology/Oncology Nalini [place] 200 [facility] [place] [address] Della Zhong CRNP [address] [place] [address] Scheduled Procedures Name Priority Associated Diagnoses [...] Additional history exists DXA Scan 12/06/2023 12/05/2021, 0 11/2019, 11/18/2017, Additional history exists Albumin/Creatinine Ratio 03/19/2024 023, 03/14/2023, 10/19/2021 GFR 04/30/2024 04/30/2023, 1208/2022, 04/17/2023, Additional history exists COLONOSCOPY-EVERY 3 YRS AGES 18-100 07/25/2024 07/25/2021, 07/25/2021, 08/25/2019, Additional history exists Lipid Panel 01/29/2027 01/29/2022, 10/18, 09/20/2008, Additional history exists Hepatitis C Screening Completed 04/08/2018 Pneumococcal Vaccine: 65+ Years Completed 11/21/2018, 06/07/2017, 09/18/2011 Colonoscopy Discontinued 07/25/2021, 12/2021, 08/18/2018, Additional history exists Colorectal Cancer Screening Discontinued VITAMIN D LEVEL ONCE IN A LIFETIME-USE SMARTSET# [id number] Completed 08/30/2022, 11/26/2019, 12/28/2013 Influenza Vaccine (FLU [...] this encounter Medical Devices Implanted Type Area Stenographer Secretary Device Identifier Shelf Expiration Date Model / Serial / Lot Surface Articular - [id number] Implanted:Qty: 1 on 09/15/2009 at OR [facility] [place] [facility] Right: Knee [employer] 04/19/2015 00-5994-03 0-20 / / [id number] Clip Quick 2.8mm 230cm - [id number] Implanted:Qty: 1 on 07/25/2021 by Lisa Sullvian MD at END[facility]COPY [facility] Colon [employer] 09/17/2023 HX-202UR.A / / [id number] documented as of this encounter Advance Directives Documents on File Type Date Recorded Patient Manager Hydraulic Expl anation Advance Directives and Living Will [...] the patient have Health Care Power of Catalyst Supervisor? No Care Teams Disk Recoater Relationship Specialty Start Date End Date Mark Caal MD [address] [place] [address] PCP - General Family Medicine 07/21/18 documented as of this encounter
--- OUTSIDE RECORDS SUMMARY | 2023-05-15 23:09 | External Medical Summary | Summary of Care ---
Author Name Unknown Organization [facility] Address [address] [place] [address] Phone [phone] Care Team Providers Care Machine Wedger Name Role Phone Mark Caal MD Primary Care Provider +1- [phone] Reason for Visit * Reason Comments Outpatient Testing Encounter Details Date Type Department Care Team (Late st Contact Info) Description 04/30/2023 1:20 PM EST Laboratory Laboratory, [facility] [address] [facility] [place] [phone] [facility] [address] [facility] [place] [address] Stage 3a chronic kidney disease (HCC) Allergies Active Allergy Reactions Criticality Noted [...] as of this encounter (statuses as of 04/30/2023) Medications Medication Sig Dispensed Refills Start Date [...] as of this encounter (statuses as of 04/30/2023) Active Problems Problem Noted Date Diagnosed Date [...] as of this encounter (statuses as of 04/30/2023) Resolved Problems Problem Noted Date Diagnosed Date [...] as of this encounter (statuses as of 04/30/2023) Immunizations Name Administration Dates Next Due COVID-19 mRNA, LNP-s, No Pre serve, 2-Dose Series ([employer]) 03/27/2021,08/16/2020,07/19/2020 Pneumococcal Conjugate Vacc, 13 Valent (Prevnar) [...] 05/22/2023 3:00 PM EST Office Visit Hepatology, [facility] [address] [place] [address] Aniyah Mora DO 132 [place] [address] 07/01/2023 4:00 PM EST Office Visit Nephrology, [facility] 200 [facility] [place], [place] [address] Mahsa Calvo MD [address] [place] [address] 07/03/2023 2:00 PM EST Laboratory Laboratory, [facility] 132 [facility] [phone] Olivo, [facility] 132 [place] [address] 07/16/2023 2:30 PM EST Office Visit Rheumatology [place] [address] [facility] [place] [address] Bishop Quinones CRNP 25[address] [facility] [place] [address] 09/17/2023 2:40 PM EDT Office Visit [facility] [address] [place] [address] Mark Caal MD [address] [place] [address] 09/24/2023 2:00 PM EDT Laboratory Laboratory, [facility] 132 [facility] [place] [phone] OlivoKaren paz [facility] 132 [facility] [address] 10/01/2023 2:00 PM EDT Office Visit Hematology/Oncology [facility] 200 [facility] [place] [address] Della Zhong CRNP [address] [place] [address] Pending Results Name Type Priority Associated Diagnoses Date /Time BASIC METABOLIC PANEL Lab Routine Stage 3a chronic kidney disease (HCC) 04/30/2023 1:21 PM EST Scheduled Procedures Name Priority Associated Diagnoses Date/Ti ks ESOPHAGOGASTRODUODENOSCOPY ( EGD), FLEXIBLE, TRANSORAL, DIAGNOSTIC Recall [...] 12/05/2021, 07/0 11/2019, 11/18/2017, Additional history exists Albumin/Creatinine Ratio [...] D LEVEL ONCE IN A LIFETIME-USE SMARTSET# [id number] Completed 08/30/2022, 11/26/2019, 12/28/2013 Influenza Vaccine (FLU [...] this encounter Medical Devices Implanted Type Area Dude Wrangler Device Identifier Shelf Expiration Date Model / Serial / Lot Surface Articular - [id number] Implanted:Qty: 1 on 09/15/2009 at [place] [facility] Right: Knee [employer] 04/19/2015 00-5994-03 0-20 / / [id number] Clip Quick 2.8mm 230cm - [id number] Implanted:Qty: 1 on 07/25/2021 by Lisa Sullivan MD at ENDOSCOPY [facility] Colon [employer] 09/17/2023 HX-202UR.A / / [id number] documented as of this encounter Visit Diagnoses Diagnosis Stage 3a chronic kidney disease (HCC) documented in this encounter Advance Directives Documents on File Type Date Recorded Patient Slack Cooper Expl anation Advance Directives and Living Will [...] the patient have Health Care Power of Gold Miner Blasting? No Care Teams Machine Wedger Relationship Specialty Start Date End Date Mark Caal MD [address] [facility] [place] [address] PCP - General Family Medicine 07/21/18 documented as of this encounter
--- OUTSIDE RECORDS SUMMARY | 2023-05-15 23:09 | External Medical Summary | Summary of Care ---
Author Name Unknown Organization [facility] Address [address] [place] [address] Phone [phone] Care Team Providers Care Rock Breaker Name Role Phone Mark Caal MD Primary Care Provider +1- [phone] Reason for Visit * Reason Comments Outpatient Testing Encounter Details Date Type Department Care Team (Late st Contact Info) Description 04/22/2023 1:00 PM EST Laboratory Laboratory, [facility] [address] [facility] [place] [phone] [facility] [address] [facility] [place] [address] DOLORES (acute kidney injury) ([facility]) Allergies Active Allergy Reactions Criticality Noted Date [...] as of this encounter (statuses as of 04/22/2023) Medications Medication Sig Dispensed Refills Start Date [...] Additional Information Patient not taking.Reported on 04/19/2023 Torsemide 100 MG Oral Tablet (Demadex) Take 1 Tablet by mouth in the morning. 90 Tablet 3 04/19/2023 Active Potassium Chloride ER 20 MEQ Oral Tablet Extended Release Take 1 Tablet by mouth in the morning. 90 Tablet 1 04/19/2023 Active documented as of this encounter (statuses as of 04/22/2023) Active Problems Problem Noted Date Diagnosed Date [...] as of this encounter (statuses as of 04/22/2023) Resolved Problems Problem Noted Date Diagnosed Date [...] as of this encounter (statuses as of 04/22/2023) Immunizations Name Administration Dates Next Due COVID-19 mRNA, LNP-s, No Pre serve, 2-Dose Series ([employer]) 03/27/2021,08/16/2020,07/19/2020 Pneumococcal Conjugate Vacc, 13 Valent (Prevnar) [...] Care Team (Late st Contact Info) Description 04/23/2023 11:00 AM EST [facility] [address] [place] [address] Crystal Cheng CRNP [address] [place] [address] 05/22/2023 3:00 PM EST Office Visit Hepatology, [facility] 132 [facility], [place] [address] Aniyah Mora DO [facility] [place], [place] [address] 07/01/2023 4:00 PM EST Office Visit Nephrology, [facility] 200 [facility] [address] Mahsa Calvo MD 400 [facility] [place] [address] 07/03/2023 2:00 PM EST Laboratory Laboratory, [facility] 132 [facility] [phone] Karen Olivo [facility] 132 [facility] [address] 07/16/2023 2:30 PM EST Office Visit Rheumatology [place] [address]1760 [place] [address] Bishop Quinones CRNP [address] [facility] [place] [address] 09/17/2023 2:40 PM EDT Office Visit [facility] [address] [place] [phone] Mark Caal MD [address] [place] [address] 09/24/2023 2:00 PM EDT Laboratory Laboratory, [facility] 132 [facility] [place] [phone] Karen Olivo 132 [facility] [place] [address] 10/01/2023 2:00 PM EDT Office Visit Hematology/Oncology Nalini Neff [place] 200 [facility] [address] Della Zhong CRNP [address] [place] [address] Pending Results Name Type Priority Associated Diagnoses Date /Time BASIC METABOLIC PANEL Lab Routine DOLORES (acute kidney injury) (HCC) 04/22/2023 1:17 PM EST Scheduled Procedures Name Priority Associated Diagnoses Date/Ti mi ESOPHAGOGASTRODUODENOSCOPY ( EGD), FLEXIBLE, TRANSORAL, DIAGNOSTIC Recall [...] Albumin/Creatinine Ratio 03/19/2024 023, 03/14/2023, 10/19/2021 GFR 04/17/2024 04/17/2023, 03/20, 03/21/2023, Additional history exists COLONOSCOPY-EVERY 3 YRS AGES 18-100 07/25/2024 07/25/2021, 07/25/2021, 08/25/2019, Additional history exists Lipid Panel 01/29/2027 01/29/2022, 10/18, 09/20/2008, Additional history exists Hepatitis C Screening Completed 04/08/2018 Pneumococcal Vaccine: 65+ Years Completed 11/21/2018, 06/07/2017, 09/18/2011 Colonoscopy Discontinued 07/25/2021, 12/2021, 08/18/2018, Additional history exists Colorectal Cancer Screening Discontinued VITAMIN D LEVEL ONCE IN A LIFETIME-USE SMARTSET# [id number] Completed 08/30/2022, 11/26/2019, 12/28/2013 Influenza Vaccine (FLU [...] this encounter Medical Devices Implanted Type Area Skull Chopper Device Identifier Shelf Expiration Date Model / Serial / Lot Surface Articular - [id number] Implanted:Qty: 1 on 09/15/2009 at OR [facility] [place] Right: Knee [employer] 04/19/2015 00-5994-03 0-20 / / [id number] Clip Quick 2.8mm 230cm - [id number] Implanted:Qty: 1 on 07/25/2021 by Lisa Sullivan MD at END[facility]COPY [facility] Colon [employer] 09/17/2023 [id number]-202UR.A / / [id number] documented as of this encounter Visit Diagnoses Diagnosis DOLORES (acute kidney injury) (HCC) Acute kidney failure, unspecified documented in this encounter Advance Directives Documents on File Type Date Recorded Patient Grain Trimmer Expl anation Advance Directives and Living Will [...] the patient have Health Care Power of Preschool Assistant Director? No Care Teams Rock Breaker Relationship Specialty Start Date End Date Mark Caal MD [address] [place] [address] PCP - General Family Medicine 07/21/18 documented as of this encounter
--- OUTSIDE RECORDS SUMMARY | 2023-05-15 23:09 | External Medical Summary | Summary of Care ---
Author Name Unknown Organization [facility] Address [address] [place] [address] Phone [phone] Care Team Providers Care Soaker Hides Name Role Phone Mrak Caal MD Primary Care Provider [phone]- [phone] Reason for Visit * Reason Onset Date Comments Test Results 05/02/2023 Encounter Details Date Type Department Care Team (Late st Contact Info) Description 05/02/2023 Telephone Nephrology, [address] [address] Mahsa Calvo MD [address] [place] [id number] Test Results Allergies Active Allergy Reactions Criticality Noted Date [...] as of this encounter (statuses as of 05/02/2023) Medications Medication Sig Dispensed Refills Start Date [...] as of this encounter (statuses as of 05/02/2023) Active Problems Problem Noted Date Diagnosed Date [...] as of this encounter (statuses as of 05/02/2023) Resolved Problems Problem Noted Date Diagnosed Date [...] as of this encounter (statuses as of 05/02/2023) Immunizations Name Administration Dates Next Due COVID-19 mRNA, LNP-s, No Pre serve, 2-Dose Series ([employer]) 03/27/2021,08/16/2020,07/19/2020 Pneumococcal Conjugate Vacc, 13 Valent (Prevnar) [...] encounter Miscellaneous Notes * Telephone Encounter - Iman Rosales RN - 05/02/2023 3:04 PM EST TE with pt regarding lab results. She did want to update provider that she has lost 24.8 lbs in past two weeks though she feels as though her legs are still very swollen. * Telephone Encounter - Iman Rosales RN - 05/02/2023 3:04 PM EST ----- Message from Mahsa Calvo MD sent at 05/02/2023 2:34 PM EST ----- Kidney function is stable and sodium is normal which is good. No changes. Dr. Calvo documented in this encounter Plan of Treatment Upcoming Encounters Date Type Department Care Team (Late st Contact Info) Description 05/22/2023 3:00 PM EST Office Visit Hepatology, [facility] [address] [place] [address] Aniyah Mora DO [facility] [address] 07/01/2023 4:00 PM EST Office Visit Nephrology, [address] [place] [address] Mahsa Calvo MD [address] [place] [address] 07/03/2023 2:00 PM EST Laboratory Laboratory, [facility] [address] [place] [phone] [facility] [address] [place] [address] 07/16/2023 2:30 PM EST Office Visit Rheumatology [place] [address] [facility] [place] [address] Bishop Quinones CRNP [facility] [place] [address] 09/17/2023 2:40 PM EDT Office Visit [address] [phone] Mark Caal MD [address] [place] [address] 09/24/2023 2:00 PM EDT Laboratory Laboratory, [facility] [address] [facility] [place] [phone] [facility] [address] [facility] [place] [address] 10/01/2023 2:00 PM EDT Office Visit Hematology/Oncology [facility] [address] [facility], [place] [address] Della Zhong CRNP [address] [facility] [place] [address] Scheduled Procedures Name Priority Associated Diagnoses Date/Ti [...] D LEVEL ONCE IN A LIFETIME-USE SMARTSET# 42717 Completed 08/30/2022, 11/26/2019, 12/28/2013 Influenza Vaccine (FLU [...] this encounter Medical Devices Implanted Type Area Military Analyst Device Identifier Shelf Expiration Date Model / Serial / Lot Surface Articular - [id number] Implanted:Qty: 1 on 09/15/2009 at OR [facility] Right: Knee [employer] 04/19/2015 [id number] 0-20 / / [id number] Clip Quick 2.8mm 230cm - [id number] Implanted:Qty: 1 on 07/25/2021 by Lisa Sullivan MD at ENDOSCOPY [facility] Colon [employer] 09/17/2023 [id number] / [id number] documented as of this encounter Advance Directives Documents on File Type Date Recorded Patient Buckle Wire Inserter Expl anation Advance Directives and Living Will [...] the patient have Health Care Power of Street Cleaning Equipment Operator? No Care Teams Soaker Hides Relationship Specialty Start Date End Date Mark Caal MD [address] [place] [address] PCP - General Family Medicine 07/21/18 documented as of this encounter
--- OUTSIDE RECORDS SUMMARY | 2023-05-15 23:10 | External Medical Summary | Summary of Care ---
Author Name Unknown Organization [facility] Address [address] [place] [address] Phone [phone] Care Team Providers Care Master Pilot Name Role Phone Mark Caal MD Primary Care Provider [phone]- [phone] Reason for Visit * Reason Onset Date Comments Advice 04/05/2023 Encounter Details Date Type Department Care Team (Late st Contact Info) Description 04/05/2023 Telephone [facility] [address] [place] [address] Mark Caal MD [address] [place] [address] Advice Allergies Active Allergy Reactions Criticality Noted Date [...] as of this encounter (statuses as of 04/16/2023) Medications Medication Sig Dispensed Refills Start Date [...] MORNING 90 Tablet 3 02/21/2023 Active Torsemide 20 MG Oral Tablet (Demadex) Take 1 Tablet by mouth in the morning and 1 Tablet before bedtime. 0 02/25/2023 Active Phospha 250 Neutral 155-852-130 MG Oral [...] at bedtime. 90 Tablet 3 04/02/2023 Active Amoxicillin 500 MG Oral Capsule (Amoxil) Take 1 Capsule by mouth in the morning and 1 Capsule at noon and 1 Capsule before bedtime. Do all this for 10 days. 30 Capsule 0 03/29/2023 3 documented as of this encounter (statuses as of 04/16/2023) Active Problems Problem Noted Date Diagnosed Date [...] as of this encounter (statuses as of 04/16/2023) Resolved Problems Problem Noted Date Diagnosed Date [...] as of this encounter (statuses as of 04/16/2023) Immunizations Name Administration Dates Next Due COVID-19 mRNA, LNP-s, No Pre serve, 2-Dose Series ([employer]) 03/27/2021,08/16/2020,07/19/2020 Pneumococcal Conjugate Vacc, 13 Valent (Prevnar) [...] Progress Notes * Henna Taylor RN - 04/08/2023 9:21 AM EST Spoke with patient, made her aware that she is to take an extra Torsemide for 3 days starting today, will have covering CM call patient on 04/12/23 for an update Henna Taylor RN documented in this encounter Miscellaneous Notes * Telephone Encounter - Trinidad Palafox OSA - 04/16/2023 10:21 AM EST Patient calling in regards to [facility]- has relatives that are WAVE SOLDERING MACHINE OPERATOR's would like them to come into home to take care of patient instead of having an outside agency do so. Would like to discuss further. Informed patient of in person appt scheduled with PCP on 04/17/23 * Telephone Encounter - Vanessa Hernandez OSA - 04/15/2023 8:56 AM EST Scheduled. 04/15/2023 * Telephone Encounter - Vanessa Hernandez OSA - 04/12/2023 3:28 PM EST Called the home number and it says "this call is being screened by smart lionel. Please hang up". I called the cell phone. Patient did not answer and VM is not set up yet. 04/12/2023 3:28PM * Telephone Encounter - Mel Gold RN - 04/12/2023 3:24 PM EST Spoke with patient, she will continue this dose. Advised for worsening symptoms over the weekend toseek ER evaluation, she replied with "I will not be doing that, it is a football weekend and you sit there for hours". Discussed that she is eligible for [facility] and they will also be reaching out to her. * Telephone Encounter - Mark Caal MD - 04/12/2023 2:28 PM EST Since the additional diuretics did not help at all, can resume previous dosing of torsemide 20 mg twice per day. Would suggest ov for evaluation given the lack of response and progressive symptoms/weight. Appt is ok for next week - but would advise her to be seen sooner (weekend clinic or ED) if she develops worsening shortness of breath * Telephone Encounter - Mel Gold RN - 04/12/2023 9:23 AM EST Called patient for follow up. She reports having worsening swelling to her lower legs/feet. She hasgained more weight and today was 186 lbs. Denies any shortness of breath or cough. Reporting that feet are painful, and it is harder for her to get around in the past 2 weeks as her feet are "giving out" at times. She has a walker and a cane. She uses furniture as support to get around in her home.She did not feel the additional diuretics were helpful at all. She is following 1700 mL fluid restriction. Voiding and having bowel movements normally. No redness to feet/lower legs. Dr. Caal, Please advise? Would you want any imaging? Or patient to be seen for eval? Thank you * Telephone Encounter - Padma Jackson LPN - 04/05/2023 5:01 PM EST Attempted to call patient. Received message that this number is screening calls and is not accepting calls from our number. Unable to leave a message * Telephone Encounter - Mark Caal MD - 04/05/2023 4:39 PM EST I was sent a message from case management but could not see how to send it back to anyone. Please see that message for details. Here is a copy of my response: She can take an extra torsemide (take 2 in AM and 1 in PM) for Sat, Sun, Mon. Continue to check daily weights. Call pt Saturday for an update on any change with increased torsemide. If worsening weight and or symptoms over the weekend, should be evaluated - even if ED documented in this encounter Plan of Treatment Upcoming Encounters Date Type Department Care Team (Late st Contact Info) Description 04/16/2023 12:30 PM EST Home Visit [facility] [place], [facility] [address] [place] [address] Lisa Avalos RN [address] [place] [address] 04/17/2023 11:20 AM EST Office Visit [facility] [address] [place] [phone] Mark Caal MD [address] [place] [address] 04/23/2023 11:00 AM EST Telemedicine [facility] [address] [place] [address] Crystal Cheng CRNP [address] [place] [address] 05/22/2023 3:00 PM EST Office Visit Hepatology, [facility] [address] [place] [address] Aniyah Mora DO [address] [place] [address] 07/03/2023 2:00 PM EST Laboratory Laboratory, [facility] [address] [place] [phone] Karen Olivo [facility] [address] [place] [address] 07/16/2023 2:30 PM EST Office Visit Rheumatology [facility] [address] [facility] [place] [address] Bishop Quinones CRNP [address] [facility] [place] [address] 09/17/2023 2:40 PM EDT Office Visit [facility], [employer] [facility] [address] [facility] [phone] Mark Caal MD [address] [place] [address] 09/24/2023 2:00 PM EDT Laboratory Laboratory, [facility] [phone] [facility] [address] 10/01/2023 2:00 PM EDT Office Visit Hematology/Oncology [facility] [address] [facility] [place] [address] Della Zhong CRNP [address] [facility] [place] [address] Scheduled Procedures Name Priority Associated Diagnoses Date/Ti [...] Albumin/Creatinine Ratio 03/19/2024 023, 03/14/2023, 10/19/2021 GFR 04/02/2024 04/02/2023, 06/2022, 10/31/2022, Additional history exists COLONOSCOPY-EVERY 3 YRS AGES 18-100 07/25/2024 07/25/2021, 07/25/2021, 08/25/2019, Additional history exists Lipid Panel 01/29/2027 01/29/2022, 10/18, 09/20/2008, Additional history exists Hepatitis C Screening Completed 04/08/2018 Pneumococcal Vaccine: 65+ Years Completed 11/21/2018, 06/07/2017, 09/18/2011 Colonoscopy Discontinued 07/25/2021, 0 12/2021, 08/18/2018, Additional history exists Colorectal Cancer Screening Discontinued VITAMIN D LEVEL ONCE IN A LIFETIME-USE SMARTSET# [id number] Completed 08/30/2022, 11/26/2019, 12/28/2013 Influenza Vaccine (FLU [...] this encounter Medical Devices Implanted Type Area Hand Wood Sander Device Identifier Shelf Expiration Date Model / Serial / Lot Surface Articular - [id number] Implanted:Qty: 1 on 09/15/2009 at OR [facility] Right: Knee [employer] 04/19/2015 [id number] 0-20 / / [id number] Clip Quick 2.8mm 230cm - [id number] Implanted:Qty: 1 on 07/25/2021 by Lisa Sullivan MD at ENDOSCOPY [facility] Colon [employer] 09/17/2023 [id number] / [id number] documented as of this encounter Advance Directives Documents on File Type Date Recorded Patient Molding Process Technician Expl anation Advance Directives and Living [...] the patient have Health Care Power of Leaf Fat Scraper? No Care Teams Master Pilot Relationship Specialty Start Date End Date Mark Caal MD [address] [place] [address] PCP - General Family Medicine 07/21/18 documented as of this encounter
--- OUTSIDE RECORDS SUMMARY | 2023-05-15 23:10 | External Medical Summary | Summary of Care ---
Author Name Unknown Organization [facility] Address [address] [place] [address] Phone [phone] Care Team Providers Care Template Inspector Name Role Phone Mark Caal MD Primary Care Provider [phone]- [phone] Reason for Visit * Reason Comments Acute Pt states that she i s having fluid retention on her abdomen, both feet, and the R foot is turning purple Encounter Details Date Type Department Care Team (Late st Contact Info) Description 04/17/2023 11:20 AM EST Office Visit [facility] [address] [place] [address] Mark Caal MD [address] [place] [address] Hyponatremia*; Hepatic cirrhosis, unspecified hepatic cirrhosis type, unspecified whether ascites present (HCC); Other ascites; Lower extremity edema Allergies Active Allergy Reactions Criticality Noted Date [...] as of this encounter (statuses as of 04/17/2023) Medications Medication Sig Dispensed Refills Start Date [...] at bedtime. 90 Tablet 3 04/02/2023 Active documented as of this encounter (statuses as of 04/17/2023) Active Problems Problem Noted Date Diagnosed Date [...] as of this encounter (statuses as of 04/17/2023) Resolved Problems Problem Noted Date Diagnosed Date [...] as of this encounter (statuses as of 04/17/2023) Immunizations Name Administration Dates Next Due COVID-19 mRNA, LNP-s, No Pre serve, 2-Dose Series ([employer]) 03/27/2021,08/16/2020,07/19/2020 Pneumococcal Conjugate Vacc, 13 Valent (Prevnar) [...] Sign Reading Time Taken Comments Blood Pressure 122/64 04/17/2023 11:12 AM EST Pulse 93 04/17/2023 11:12 AM EST Temperature 36.2 C (97.1 F) 04/17/2023 11:[address] Respiratory Rate 18 04/17/2023 11:12 AM EST Oxygen Saturation 97% 04/17/2023 11:12 AM EST Inhaled Oxygen Concentration - - Weight - - Height 154.9 cm (5' 1") 04/17/2023 11:12 AM EST Body Mass Index - - documented in [...] as of this encounter Progress Notes * Mark Caal MD - 04/17/2023 11:41 AM EST Subjective: Juli Knapp is a 73 year old female here today for Chief Complaint Patient presents with Acute Pt states that she is having fluid retention on her abdomen, both feet, and the R foot is turning purple Pt presents for acute visit for worsening issues with abd distention, lower ext swelling. States that her weight has been increasing 1-3 lbs per day per her scale at home. She is having some shortness of breath with activity. She was admitted to [facility] 03/22/23 - 03/28/23 with hyponatremia, chronic diastolic heart failure, NAFLD cirrhosis. Sodium of 119 improved to 126 by D/C and to 130 by recheck after discharge. She was seen in the hospital by nephrology. It is noted that her spironolactone 100 mg was discontinued. She does continue to take torsemide 20 mg bid. She reports that she is doing her best to follow the 1500 mL/day fluid restriction. She has never needed paracentesis. Past Medical History: Diagnosis Date Asthma, moderate [...] OPEN performed by Denise Singh MD at [facility] COLONOSCOPY 03/28/2011 COLONOSCOPY, DIAGNOSTIC (RECTUM) 12/10/2017 TVA polyp, repeat 6 mo/COLONOSCOPY FLEXIBLE PROXIMAL DIAGNOSTIC performed by Lisa Sullivan MD at END[facility]COPY [facility] COLONOSCOPY, DIAGNOSTIC (RECTUM) 08/18/2018 diverticulosis, flex sig 1 yr/COLONOSCOPY FLEXIBLE PROXIMAL DIAGNOSTIC performed by Lisa Sullivan MD at [facility]COPY [facility] COLONOSCOPY, DIAGNOSTIC (RECTUM) 07/25/2021 adenomatous & hyperplastic polyps, repeat 3 yrs / COLONOSCOPY FLEXIBLE PROXIMAL DIAGNOSTIC performed by Lisa Sullivan MD at ENDOSCOPY [facility] EGD, FLEXIBLE, DIAGNOSTIC 11/11/2018 esophageal varices, portal hypertensive gastropathy, repeat 6 wks/ESOPHAGOGASTRODUODENOSCOPY (EGD),FLEXIBLE, TRANSORAL, DIAGNOSTIC performed by Lisa Sullivan MD at [facility]COPY [facility] EGD, FLEXIBLE, DIAGNOSTIC 01/26/2019 esophageal varices, portal hypertensive gastropathy, repeat 6 wks/[facility] EGD, FLEXIBLE, DIAGNOSTIC 03/23/2019 benign hyperplastic gastric polyp / [facility] EGD, FLEXIBLE, DIAGNOSTIC 01/26/2019 eso varices, repeat 6 wks/[facility] EGD, FLEXIBLE, DIAGNOSTIC 08/25/2019 portal hypertensive gastropathy, repeat 1 yr / ESOPHAGOGASTRODUODENOSCOPY (EGD), FLEXIBLE, TRANSORAL, DIAGNOSTIC performed by Lisa Sullivan MD at [facility] EGD, FLEXIBLE, DIAGNOSTIC 07/25/2021 Portal hypertensive gastropathy, sm eso varices, repeat 6 mo / ESOPHAGOGASTRODUODENOSCOPY (EGD), FLEXIBLE, TRANSORAL, DIAGNOSTIC performed by Lisa Sullivan MD at [facility] EGD, FLEXIBLE, DIAGNOSTIC N/A 09/07/2022 small hiatal hernia/grade I esophageal varices/portal hypertensive gastropathy/recall 1 year/ESOPHAGOGASTRODUODENOSCOPY (EGD), FLEXIBLE, TRANSORAL, DIAGNOSTIC performed by Lisa Sullivan MD at [facility] IDENTIFY SENTINEL NODE, RADIOACTIVE TRACER Left 10/16/2017 INJECTION PROCEDURE FOR IDENTIFICATION SENTINEL NODE performed by Denise Singh MD at OR [facility] SIDNEY FLEX SIGMOID DIAGNOSITIC 08/25/2019 normal, repeat 1 yr / SIGMOIDOSCOPY FLEXIBLE DIAGNOSTIC performed by Lisa Sullivan MD at ENDOSCOPY [facility] KNEE ARTHROSCOPY/MENISCECTOMY Left 07/08/2019 ARTHROSCOPY KNEE MEDIAL OR LATERAL MENISCECTOMY performed by Dahiana Madrid DO at OR [facility] MASTECTOMY, PARTIAL Left 10/16/2017 10/16/2017 MASTECTOMY PARTIAL performed by Denise Singh MD at OR [facility] PARTIAL HYSTERECTOMY 1983 REDUCTION OF BREAST Bilateral 1999 REMOVAL OF BOWEL LESION(S) 01/1998 diverticulitis REMOVAL OF OVARY/OVIDUCT(S) 1984 REMOVE ADDED SPINE LAMINA, 1 SEG N/A 09/09/2020 LAMINECTOMY FACETECTOMY AND FORAMINOTOMY ADDITIONAL LEVELS performed by Rg Stewart MD at OR [facility] REMOVE GALLBLADDER REMOVE LUMBAR SPINE LAMINA, 1 SEG N/A 09/09/2020 LAMINECTOMY FACETECTOMY AND FORAMINOTOMY LUMBAR performed by Rg Stewart MD at OR [facility] REMOVE TONSILS & ADENOIDS, UNDER 12 T & A, age<12 REPAIR BOWEL-BLADDER FISTULA 07/1998 REPAIR INITIAL INCISIONAL HERNIA 08/1999 REPAIR OF NASAL SEPTUM 2010 Nasal Septum Repair REVISE KNEE JOINT REPLACEMENT 09/15/2009 TOTAL KNEE REVISION ONE COMPONENT performed by Clem MAYO at OR [facility] SACROILIAC JOINT INJECT W/GUIDANCE 02/08/2020 INJECTION SACROILIAC JOINT performed by Vahid Rutherford DO at OR [facility] TENDON SHEATH INCISION, FINGER Left 05/10/2015 TRIGGER FINGER RELEASE performed by Shiv Stovall MD at OR [facility] US GUIDED BREAST BIOPSY LEFT Left 09/26/2017 [...] UP A TOLERANCE TO MED, DOESN'T WORK". Current Outpatient Medications Medication Sig Dispense Refill latanoprost (XALATAN) 0.005 % ophthalmic solution Instill 1 Drop into both eyes at bedtime. Calcium Carbonate-Vitamin D 600-400 MG-UNIT per chew tablet Take 1 Tab by mouth 2 times a day. 60 Tab 6 Milk Thistle 175 MG CAPS Take by mouth 1 Capsule daily . Acetaminophen ER 650 MG Oral Tablet Extended Release Take 1 Tablet by mouth every 8 hours as needed. Cinnamon 500 MG Oral Capsule Take 2 [...] by mouth every 6 hours as needed. Levalbuterol Tartrate 45 MCG/ACT Inhalation Aerosol (Xopenex HFA) Inhale 1 Puff by mouth every 4 hours as needed for Wheezing. 45 g 1 Fluticasone Propionate HFA 110 MCG/ACT Inhalation Aerosol (Flovent HFA) Inhale 2 Puffs by mouth in the morning and 2 Puffs before bedtime. 36 g 1 Montelukast Sodium 10 MG Oral Tablet (Singulair) TAKE 1 TABLET BY MOUTH EVERY DAY IN THE MORNING 100 Tablet 2 Pantoprazole Sodium 40 MG Oral Tablet Delayed Release (Protonix) TAKE 1 TABLET BY MOUTH EVERY DAY IN THE MORNING 90 Tablet 3 Torsemide 20 MG Oral Tablet (Demadex) Take 1 Tablet by mouth in the morning and 1 Tablet before bedtime. Phospha 250 Neutral 155-852-130 MG Oral Tablet Take 1 Tablet by mouth in the morning and 1 Tablet before bedtime. Lactulose Encephalopathy 10 GM/15ML Oral Solution Take 45 mL by mouth daily as needed for Constipation. 2838 mL 3 Iron-Vitamin C 65-125 MG Oral Tablet (Vitron C) Take 1 Tablet by mouth at bedtime. 90 Tablet 3 Psyllium 51.7 % Oral Packet 1 Dose 3 times a day as needed. (Patient not taking: Reported on 03/11/2023) Docusate Sodium 100 MG Oral Capsule Take 1 Capsule by mouth 3 times a day as needed. (Patient not taking: Reported on 03/29/2023) Meclizine HCl 12.5 MG Oral Tablet (Antivert) Take 1 Tablet by mouth 3 times a day as needed. (Patient not taking: Reported on 07/31/2022) Levalbuterol HCl 1.25 MG/3ML Inhalation Nebulization Solution (Xopenex) Inhale via nebulizer 1 Ampule every 4 hours as needed for Wheezing. (Patient not taking: Reported on 03/11/2023) 72 mL 12 No current facility-administered medications for this visit. Objective: BP 122/64 (BP Site: Left Arm, BP Position: Sitting, BP Cuff Size: Regular) | Pulse 93 |Temp 36.2 C (97.1 F) (Temporal Artery) | Resp 18 | Ht 1.549 m (5' 1") | SpO2 97% | BMI 32.03 kg/m | BSA 1.82 m GEN: NAD CHEST: CTA B. I do not appreciate rales. CV: RRR ABD: diffusely distended and tender in the upper quadrants. +BS EXT: 3+ edema of bilateral lower extremities to the knees. No open areas. There is some erythema and bruising related to the degree of edema of the dorsal surface of feet. Assessment and Plan: Hyponatremia (Primary) - BASIC METABOLIC PANEL; Future; Expected date: 04/17/2023 Hepatic cirrhosis, unspecified hepatic cirrhosis type, unspecified whether ascites present (HCC) Other ascites Lower extremity edema -pt having progressive issues with abd distention, lower ext edema, weight gain since stopping spironolactone. Will recheck BMP and review with nephrology and GI. Elevate legs. Follow fluid restriction. Consider abd u/s to eval degree of ascites. 45 min with pt, chart review, documentation, communication with specialists. Mark Caal MD documented in this encounter Nursing Notes * Laurel Michel CCMA - 04/17/2023 11:12 AM EST Juli Knapp is a 73 year old female who presents today for Chief Complaint Patient presents with Acute Pt states that she is having fluid retention on her abdomen, both feet, and the R foot is turning purple documented in this encounter Plan of Treatment Upcoming Encounters Date Type Department Care Team (Late st Contact Info) Description 04/23/2023 11:00 AM EST Telemedicine ising at [place], [facility] [address] [facility] [place] [address] Crystal Cheng CRNP [address] [facility] [place] [address] 05/22/2023 3:00 PM EST Office Visit Hepatology, [facility] [address] [facility] [place] [address] Aniyah Mora DO [address] [facility] [place] [address] 07/03/2023 2:00 PM EST Laboratory Laboratory, [facility] [phone] [facility] [place] [address] 07/16/2023 2:30 PM EST Office Visit Rheumatology [address] [address] Bishop Quinones CRNP [address] [place] [address], [place] [address] 09/17/2023 2:40 PM EDT Office Visit [facility] [address] [place] [phone] aMrk Caal MD [address] [place] [address] 09/24/2023 2:00 PM EDT Laboratory Laboratory, [facility] [address] [place] [phone] Geovani Karen Jeff [address] [place] [address] 10/01/2023 2:00 PM EDT Office Visit Hematology/Oncology [facility] [place] [address] [facility] [address] Della Zhong CRNP [address] [facility] [place] [address] Scheduled Procedures Name [...] 11/2019, 11/18/2017, Additional history exists Albumin/Creatinine Ratio 03/19/202403/19/ 023, 03/14/2023, 10/19/2021 GFR 04/17/2024 04/17/2023, 03/20, [...] D LEVEL ONCE IN A LIFETIME-USE SMARTSET# [id number] Completed 08/30/2022, 11/26/2019, 12/28/2013 Influenza Vaccine (FLU [...] this encounter Medical Devices Implanted Type Area Medical Insurance Coding Specialist Device Identifier Shelf Expiration Date Model / Serial / Lot Surface Articular - [id number] Implanted:Qty: 1 on 09/15/[address] [facility] Right: Knee [employer] 04/19/2015 [id number] 0-20 / / [id number] Clip Quick 2.8mm 230cm - [id number] Implanted:Qty: 1 on 07/25/2021 by Lisa Sullivan MD at ENDOSCOPY [facility] Colon [employer] 09/17/2023 [id number] / / [id number] documented as of this encounter Results * (ABNORMAL) BASIC METABOLIC PANEL (04/17/2023 1:04 PM EST) BUN 21(H) 6 - 20 mg/dL 04/17/2023 2:09 PM EST [facility] 57-10 Creatinine 1.2(H) 0.5 - 1.0 mg/dL 04/17/2023 2:09 PM EST [facility] [place] 57-10 Estimated Glomerular Filtration Rate 50(L) >=60 mL/min 04/17/2023 2:09 PM EST [facility] [place] 57-10 Comment:eGFR is calculated b ased on the CKD-EPI 2020 equation Sodium 130(L) 135 - 146 mmol/L 04/17/2023 2:09 PM EST [facility] [place] 57-10 Potassium 3.8 3.5 - 5.1 mmol/L 04/17/2023 2:09 PM EST [facility] [place] 57-10 Chloride 92(L) 98 - 107 mmol/L 04/17/2023 2:09 PM EST [facility] [place] 57-10 CO2 27 22 - 32 mmol/L 04/17/2023 2:09 PM EST [facility] [place] 57-10 Anion Gap 11 7 - 15 mmol/L 04/17/2023 2:09 PM EST [facility] [place] 57-10 Glucose 109 70 - 120 mg/dL 04/17/2023 2:09 PM EST [facility] [place] 57-10 Calcium 7.8(L) 8.4 - 10.2 mg/dL 04/17/2023 2:09 PM EST [facility] [place] 57-10 Blood Venous blood specimen / Unknown Venipuncture / Unknown 04/17/2023 1:04 PM EST 04/17/2023 1:04 PM EST Mark Caal MD LAB BLOOD ORDERABL ES [facility] [place] 57-10 [address] [facility] [address] documented in this encounter Visit Diagnoses Diagnosis Hyponatremia- Primary Hyposmolality and/or hyponatremia Hepatic cirrhosis, unspecified hepatic cirrhosis type, unspecified whether ascites present (HCC) Other ascites Lower extremity edema Edema documented in this encounter Advance Directives Documents on File Type Date Recorded Patient Gas Distribution Supervisor Expl anation Advance Directives and Living [...] the patient have Health Care Power of Home Health Care Coordinator? No Care Teams Template Inspector Relationship Specialty Start Date End Date Mark Caal MD [address] [facility] [address] PCP - General Family Medicine 07/21/18 documented as of this encounter
--- OUTSIDE RECORDS SUMMARY | 2023-05-15 23:10 | External Medical Summary | Summary of Care ---
Author Name Unknown Organization [facility] Address [address] [place] [address] Phone [phone] Care Team Providers Care Arcade Game Technician Name Role Phone Mark Caal MD Primary Care Provider [phone]- [phone] Reason for Visit * Reason Comments Outpatient Testing Encounter Details Date Type Department Care Team (Late st Contact Info) Description 04/17/2023 1:10 PM EST Laboratory [facility], [facility] [place] [address] [facility] [address] [facility] [place] [place] [address] Hyponatremia Allergies Active Allergy Reactions Criticality Noted Date [...] mRNA, LNP-s, No Pre serve, 2-Dose Series ([employer]) 03/27/2021,08/16/2020,07/19/2020 Pneumococcal Conjugate Vacc, 13 Valent (Prevnar) [...] 04/23/2023 11:00 AM EST Telemedicine [facility] [address] [place] [address] Crystal Cheng CRNP [address] [place] [address] 05/22/2023 3:00 PM EST Office Visit Hepatology, [facility] [address] [place] [address] Aniyah Mora DO [address] [place] [address] 07/03/2023 2:00 PM EST Laboratory Laboratory, [facility] 132 [facility] [place] [phone] Karen Olivo [facility] [place] [address] 07/16/2023 2:30 PM EST Office Visit Rheumatology [place] [address] [facility], [place] [address] Bishop Quinones CRNP [facility], [place] [address] 09/17/2023 2:40 PM EDT Office Visit [facility] [address] [place] [phone] Mark Caal MD [address] [place] [address] 09/24/2023 2:00 PM EDT Laboratory Laboratory, [facility] 132 [facility] [place] [phone] Karen Olivo [address] [facility] [place] [address] 10/01/2023 2:00 PM EDT Office Visit Hematology/Oncology [facility] [address] [facility] [place] [address] Della Zhong CRNP [address] [place] [address] Pending Results Name Type Priority Associated Diagnoses Date /Time BASIC METABOLIC PANEL Lab Routine Hyponatremia 04/17/2023 1:04 PM EST Scheduled Procedures Name Priority Associated Diagnoses Date/Ti al ESOPHAGOGASTRODUODENOSCOPY ( EGD), FLEXIBLE, TRANSORAL, DIAGNOSTIC Recall Esophageal varices (HCC) COLONOSCOPY FLEXIBLE PROXIMAL DIAGNOSTIC Recall History of colon polyps Health Maintenance Due Date Last Done Comments Alpha-1 Antitrypsin 02/05/1970 Diabetic Eye Exam 02/05/1970 Diabetic Foot Exam 02/05/1970 Hepatitis B (1 of 3 - Risk 3-dose series) 2012 Zoster Vaccines (2 of 3) 12/27/2013 11/01/2013 COVID-19 Vaccine (4 - season) 2023 03/27/2021, 08/16/2020, 07/19/2020 Depression [...] D LEVEL ONCE IN A LIFETIME-USE SMARTSET# [id number] Completed 08/30/2022, 11/26/2019, 12/28/2013 Influenza Vaccine (FLU [...] this encounter Medical Devices Implanted Type Area Water Resource Engineer Device Identifier Shelf Expiration Date Model / Serial / Lot Surface Articular - [id number] Implanted:Qty: 1 on 09/15/2009 at OR [facility] Right: Knee [employer] 04/19/2015 [id number] 0-20 / / [id number] Clip Quick 2.8mm 230cm - [id number] Implanted:Qty: 1 on 07/25/2021 by Lisa Sullivan MD at [facility]COPY [facility] Colon [employer] 09/17/2023 [id number] / / [id number] documented as of this encounter Visit Diagnoses Diagnosis Hyponatremia Hyposmolality and/or hyponatremia documented in this encounter Advance Directives Documents on File Type Date Recorded Patient Harbor Engineer Expl anation Advance Directives and Living Will [...] the patient have Health Care Power of Division Order Technician? No Care Teams Arcade Game Technician Relationship Specialty Start Date End Date Mark Caal MD [address] [facility] [place] [address] PCP - General Family Medicine 07/21/18 documented as of this encounter
--- OUTSIDE RECORDS SUMMARY | 2023-05-15 23:10 | External Medical Summary | Summary of Care ---
Author Name Unknown Organization [facility] Address [address] [place] [address] Phone [phone] Care Team Providers Care Stores Naval Name Role Phone Mark Caal MD Primary Care Provider [phone]- [phone] Reason for Visit * Reason Onset Date Comments Hospital Follow-Up Hospital Follow-Up 04/21/2023 Encounter Details Date Type Department Care Team (Late st Contact Info) Description 03/29/2023 1:00 PM EST Office Visit [facility] [address] [place] [address] Mark Caal MD [address] [place] [address] Hyponatremia*; Hepatic cirrhosis, unspecified hepatic cirrhosis type, unspecified whether ascites present (HCC); Hospital discharge follow-up; Type 2 diabetes mellitus without complication, without long-term current use of insulin (HCC); HTN, goal below 140/90 Allergies Active Allergy Reactions Criticality Noted Date [...] as of this encounter (statuses as of 04/21/2023) Medications Medication Sig Dispensed Refills Start Date [...] for Constipation. 2838 mL 3 03/28/2023 Active Torsemide 20 MG Oral Tablet (Demadex) Take 1 Tablet by mouth in the morning and 1 Tablet before bedtime. 0 02/25/2023 04/19/20 23 Discontinue d(Refill) Amoxicillin 500 MG Oral Capsule (Amoxil) Take 1 Capsule by mouth in the morning and 1 Capsule at noon and 1 Capsule before bedtime. Do all this for 10 days. 30 Capsule 0 03/29/2023 04/08/20 23 documented as of this encounter (statuses as of 04/21/2023) Active Problems Problem Noted Date Diagnosed Date [...] as of this encounter (statuses as of 04/21/2023) Resolved Problems Problem Noted Date Diagnosed Date [...] as of this encounter (statuses as of 04/21/2023) Immunizations Name Administration Dates Next Due COVID-19 mRNA, LNP-s, No Pre serve, 2-Dose Series ([employer]) 03/27/2021,08/16/2020,07/19/2020 Pneumococcal Conjugate Vacc, 13 Valent (Prevnar) [...] Sign Reading Time Taken Comments Blood Pressure 120/58 03/29/2023 12:52 PM EST Pulse 100 03/29/2023 12:52 PM EST Temperature 36.5 C (97.7 F) 03/29/2023 12:[address] Respiratory Rate 20 03/29/2023 12:52 PM EST Oxygen Saturation 98% 03/29/2023 12:52 PM EST Inhaled Oxygen Concentration - - Weight 73.7 kg (162 lb 6.4 oz) 03/29/2023 12:52 PM EST Height 154.9 cm (5' 0.98") 03/29/2023 12:[address] Body Mass Index 30.71 03/29/2023 12:52 PM EST documented in this encounter Functional Status Functional [...] Progress Notes * Mark Caal MD - 04/21/2023 4:15 PM EST Subjective: Juli Knapp is a 73 year old female here today for Chief Complaint Patient presents with Hospital Follow-Up Hospital Follow-Up Pt presents for hospital follow up. Please see d/c summary for full details. Admitted to [facility] 03/22/23 - 03/28/23 for hyponatremia. Admission Na 119. Home diuretics held and sodium improved to 128. Kidney function also improved. Seen by GI and nephrology. New meds - lactulose and phos replacement. Home dose of spironolactone 100 mg held but re-started on torsemide 20 mg bid. Pt agreeable to recheckof labs. She has noticed some return of edema in the lower extremities. No open areas/skin breakdown. Past Medical History: Diagnosis Date Asthma, moderate [...] OPEN performed by Denise Singh MD at [facility] COLONOSCOPY 03/28/2011 COLONOSCOPY, DIAGNOSTIC (RECTUM) 12/10/2017 TVA polyp, repeat 6 mo/COLONOSCOPY FLEXIBLE PROXIMAL DIAGNOSTIC performed by Lisa Sullivan MD at [facility] COLONOSCOPY, DIAGNOSTIC (RECTUM) 08/18/2018 diverticulosis, flex sig 1 yr/COLONOSCOPY FLEXIBLE PROXIMAL DIAGNOSTIC performed by Lisa Sullivan MD at [facility]COPY [facility] COLONOSCOPY, DIAGNOSTIC (RECTUM) 07/25/2021 adenomatous & hyperplastic polyps, repeat 3 yrs / COLONOSCOPY FLEXIBLE PROXIMAL DIAGNOSTIC performed by Lisa Sullivan MD at [facility] EGD, FLEXIBLE, DIAGNOSTIC 11/11/2018 esophageal varices, portal hypertensive gastropathy, repeat 6 wks/ESOPHAGOGASTRODUODENOSCOPY (EGD),FLEXIBLE, TRANSORAL, DIAGNOSTIC performed by Lisa Sullivan MD at [facility] EGD, FLEXIBLE, DIAGNOSTIC 01/26/2019 esophageal varices, portal hypertensive gastropathy, repeat 6 wks/[facility] EGD, FLEXIBLE, DIAGNOSTIC 03/23/2019 benign hyperplastic gastric polyp / [facility] EGD, FLEXIBLE, DIAGNOSTIC 01/26/2019 eso varices, repeat 6 wks/[facility] EGD, FLEXIBLE, DIAGNOSTIC 08/25/2019 portal hypertensive gastropathy, repeat 1 yr / ESOPHAGOGASTRODUODENOSCOPY (EGD), FLEXIBLE, TRANSORAL, DIAGNOSTIC performed by Lisa Sullivan MD at [facility] EGD, FLEXIBLE, DIAGNOSTIC 07/25/2021 Portal hypertensive gastropathy, sm eso varices, repeat 6 mo / ESOPHAGOGASTRODUODENOSCOPY (EGD), FLEXIBLE, TRANSORAL, DIAGNOSTIC performed by Lisa Sullivan MD at [facility] EGD, FLEXIBLE, DIAGNOSTIC N/A 09/07/2022 small hiatal hernia/grade I esophageal varices/portal hypertensive gastropathy/recall 1 year/ESOPHAGOGASTRODUODENOSCOPY (EGD), FLEXIBLE, TRANSORAL, DIAGNOSTIC performed by Lisa Sullivan MD at [facility] IDENTIFY SENTINEL NODE, RADIOACTIVE TRACER Left 10/16/2017 INJECTION PROCEDURE FOR IDENTIFICATION SENTINEL NODE performed by Denise Singh MD at OR [facility] SIDNEY FLEX SIGMOID DIAGNOSITIC 08/25/2019 normal, repeat 1 yr / SIGMOIDOSCOPY FLEXIBLE DIAGNOSTIC performed by Lisa Sullivan MD at [facility] KNEE ARTHROSCOPY/MENISCECTOMY Left 07/08/2019 ARTHROSCOPY KNEE MEDIAL OR LATERAL MENISCECTOMY performed by Dahiana Madrid DO at [facility] MASTECTOMY, PARTIAL Left 10/16/2017 10/16/2017 MASTECTOMY PARTIAL performed by Denise Singh MD at OR [facility] PARTIAL HYSTERECTOMY 1983 REDUCTION OF BREAST Bilateral 1998 REMOVAL OF BOWEL LESION(S) 01/1998 diverticulitis REMOVAL OF OVARY/OVIDUCT(S) 1984 REMOVE ADDED SPINE LAMINA, 1 SEG N/A 09/09/2020 LAMINECTOMY FACETECTOMY AND FORAMINOTOMY ADDITIONAL LEVELS performed by Rg Stewart MD at OR [facility] REMOVE GALLBLADDER REMOVE LUMBAR SPINE LAMINA, 1 SEG N/A 09/09/2020 LAMINECTOMY FACETECTOMY AND FORAMINOTOMY LUMBAR performed by Rg Stewart MD at OR [facility] REMOVE TONSILS & ADENOIDS, UNDER 12 T & A, age<12 REPAIR BOWEL-BLADDER FISTULA 07/1998 REPAIR INITIAL INCISIONAL HERNIA 08/1999 REPAIR OF NASAL SEPTUM 2010 Nasal Septum Repair REVISE KNEE JOINT REPLACEMENT 09/15/2009 TOTAL KNEE REVISION ONE COMPONENT performed by Clem MAYO at [facility] SACROILIAC JOINT INJECT W/GUIDANCE 02/08/2020 INJECTION SACROILIAC JOINT performed by Vahid Rutherford DO at OR [facility] TENDON SHEATH INCISION, FINGER Left 05/10/2015 TRIGGER FINGER RELEASE performed by Shiv Stovall MD at OR [facility] US GUIDED BREAST BIOPSY LEFT Left 09/26/2017 [...] DAY IN THE MORNING 90 Tablet 3 Phospha 250 Neutral 155-852-130 MG Oral Tablet Take 1 Tablet by mouth in the morning and 1 Tablet before bedtime. Lactulose Encephalopathy 10 GM/15ML Oral Solution Take 45 mL by mouth daily as needed for Constipation. 2838 mL 3 Psyllium 51.7 % Oral Packet 1 [...] taking: Reported on 03/11/2023) 72 mL 12 Iron-Vitamin C 65-125 MG Oral Tablet (Vitron C) Take 1 Tablet by mouth at bedtime. (Patient not taking: Reported on 04/19/2023) 90 Tablet 3 Torsemide 100 MG Oral Tablet (Demadex) Take 1 Tablet by mouth in the morning. 90 Tablet 3 Potassium Chloride ER 20 MEQ Oral Tablet Extended Release Take 1 Tablet by mouth in the morning. 90Tablet 1 No current facility-administered medications for this visit. Objective: BP 120/58 | Pulse 100 | Temp 36.5 C (97.7 F) (Temporal Artery) | Resp 20 | Ht 1.549 m (5' 0.98") | Wt 73.7 kg (162 lb 6.4 oz) | SpO2 98% | BMI 30.71 kg/m | BSA 1.78 m GEN: NAD HEENT: Benign NECK: Supple with no LAD, TM, JVD CHEST: CTA B CV: RRR ABD: Soft, NT/ND, No HSM, NABS EXT: No c,c,e Assessment and Plan: Hyponatremia (Primary) - BASIC METABOLIC PANEL; Future; Expected date: 03/29/2023 - DISCH MED RECON CUR MED LIS Hepatic cirrhosis, unspecified hepatic cirrhosis type, unspecified whether ascites present (HCC) Hospital discharge follow-up Type 2 diabetes mellitus without complication, without long-term current use of insulin (HCC) HTN, goal below 140/90 Other orders - Amoxicillin 500 MG Oral Capsule (Amoxil); Take 1 Capsule by mouth in the morning and 1 Capsule atnoon and 1 Capsule before bedtime. Do all this for 10 days. Recheck labs. Try and extra dose of torsemide daily for the next several days. Call if worsening symptoms. Keep specialty follow up. Mark Caal MD documented in this encounter Nursing Notes * Padma Jackson LPN - 03/29/2023 12:52 PM EST The patient has been properly identified by confirmation of name and date of . Chief Complaint Patient presents with Hospital Follow-Up documented in this encounter Plan of Treatment Upcoming Encounters Date Type Department Care Team (Late st Contact Info) Description 04/22/2023 1:00 PM EST Laboratory Laboratory, [facility] [address] [facility] [phone] Karen Olivo [facility] [address] [facility] [place] [address] 04/23/2023 11:00 AM EST Telemedicine [facility], [facility] [address] [facility] [place] [address] Crystal Cheng CRNP [address] [place] [address] 05/22/2023 3:00 PM EST Office Visit Hepatology, [facility] [address] [facility] [place] [address] Aniyah Mora DO 132 [facility], [place] [address] 07/01/2023 4:00 PM EST Office Visit Nephrology, [facility] [address] [facility] [place] [address] Mahsa Calvo MD [address] [place] [address] [place], [place] [id number] 07/03/2023 2:00 PM EST Laboratory Laboratory, [facility] [address] [facility] [place] [phone] Karen Olivos [address] [facility] [place] [address] 07/16/2023 2:30 PM EST Office Visit Rheumatology [facility] [address] [place] [address] Bishop Quinones CRNP [address] [facility] [place], [place] [address] 09/17/2023 2:40 PM EDT Office Visit Family [facility] [place] [address] [place] [phone] Mark Caal MD [address] [place] [address] 09/24/2023 2:00 PM EDT Laboratory Laboratory, [facility] [address] [place] [phone] [facility] [address] [place] [address] 10/01/2023 2:00 PM EDT Office Visit Hematology/Oncology [facility] 200 [facility] [place], [place] [address] Della Zhong CRNP [address] [facility] [place] [address] Scheduled Procedures Name Priority Associated Diagnoses Date/Ti [...] FOR COPD 09/08/2023 09/07/2022 HbA1c 09/19/2023 03/21/2023, 0 10/2022, 01/29/2022, Additional history exists DTaP,Tdap,and Td [...] D LEVEL ONCE IN A LIFETIME-USE SMARTSET# [id number] Completed 08/30/2022, 11/26/2019, 12/28/2013 Influenza Vaccine (FLU [...] this encounter Medical Devices Implanted Type Area Production Miner Device Identifier Shelf Expiration Date Model / Serial / Lot Surface Articular - [id number] Implanted:Qty: 1 on 09/15/2009 at OR [facility] Right: Knee [employer] 04/19/2015 00-5994-03 0-20 / / [id number] Clip Quick 2.8mm 230cm - [id number] Implanted:Qty: 1 on 07/25/2021 by Lisa Sullivan MD at [facility] Colon [employer] 09/17/2023 [id number] / / [id number] documented as of this encounter Results * (ABNORMAL) BASIC METABOLIC PANEL (04/02/2023 10:48 AM EST) Pathologist [facility] BUN 17 6 - 20 mg/dL 04/02/2023 12:29 PM EST LABORATORY [place] [address] Creatinine 0.8 0.5 - 1.0 mg/dL 04/02/2023 12:29 PM EST [place] [address] Estimated Glomerular Filtration Rate 79 >=60 mL/min 04/02/2023 12:29 PM EST [facility] 56 Comment:eGFR is calculated b ased on the CKD-EPI 2020 equation Sodium 130(L) 135 - 146 mmol/L 04/02/2023 12:29 PM EST [facility] 56- Potassium 3.8 3.5 - 5.1 mmol/L 04/02/2023 12:29 PM EST [facility] 56- Chloride 95(L) 98 - 107 mmol/L 04/02/2023 12:29 PM EST [facility] 56- CO2 23 22 - 32 mmol/L 04/02/2023 12:29 PM EST [facility] 56- Anion Gap 12 7 - 15 mmol/L 04/02/2023 12:29 PM EST [facility] 56- Glucose 137(H) 70 - 120 mg/dL 04/02/2023 12:29 PM EST [facility] 56- Calcium 7.7(L) 8.4 - 10.2 mg/dL 04/02/2023 12:29 PM EST [facility] 56-02 Blood Venous blood specimen / Unknown Venipuncture / Unknown 04/02/2023 10:48 AM EST 04/02/2023 10:48 AM EST Mark Caal MD LAB BLOOD ORDERABL ES [facility] [address] [place], [place] [id number] documented in this encounter Visit Diagnoses Diagnosis Hyponatremia- Primary Hyposmolality and/or hyponatremia Hepatic cirrhosis, unspecified hepatic cirrhosis type, unspecified whether ascites present (HCC) Hospital discharge follow-up Other follow-up examination Type 2 diabetes mellitus without complication, without long-term current use of insulin (HCC) HTN, goal below 140/90 Unspecified essential hypertension documented in this encounter Advance Directives Documents on File Type Date Recorded Patient Lining Printer Expl anation Advance Directives and Living Will [...] the patient have Health Care Power of Reporting Analyst? No Care Teams Stores Naval Relationship Specialty Start Date End Date Mark Caal MD [address] [facility] [id number] PCP - General Family Medicine 07/21/18 documented as of this encounter
--- OUTSIDE RECORDS SUMMARY | 2023-05-15 23:10 | External Medical Summary | Summary of Care ---
Author Name Unknown Organization [facility] Address [address] [place] [address] Phone [phone] Care Team Providers Care Cut Off Operator Scorer Name Role Phone Mark Caal MD Primary Care Provider +1- [phone] Reason for Visit * Reason Onset Date Comments Appointment 04/19/2023 Encounter Details Date Type Department Care Team (Late st Contact Info) Description 04/19/2023 Telephone Nephrology, Nalini Mcewen [address] [facility] [place] [address] DingÁngela maldonado MD [address] [facility] [place] [address] Appointment Allergies Active Allergy Reactions Criticality Noted Date [...] as of this encounter (statuses as of 04/19/2023) Medications Medication Sig Dispensed Refills Start Date [...] at bedtime. 90 Tablet 3 04/02/2023 Active Torsemide 20 MG Oral Tablet (Demadex) Take 1 Tablet by mouth in the morning and 1 Tablet before bedtime. 0 02/25/2023 3 Discontinu ed(Refill) documented as of this encounter (statuses as of 04/19/2023) Active Problems Problem Noted Date Diagnosed Date [...] as of this encounter (statuses as of 04/19/2023) Resolved Problems Problem Noted Date Diagnosed Date [...] as of this encounter (statuses as of 04/19/2023) Immunizations Name Administration Dates Next Due COVID-19 mRNA, LNP-s, No Pre serve, 2-Dose Series ([employer]) 03/27/2021,08/16/2020,07/19/2020 Pneumococcal Conjugate Vacc, 13 Valent (Prevnar) [...] Telephone Encounter - Iman Rosales RN - 04/19/2023 1:04 PM EST Pt is scheduled for OV at 2pm today. She is notified and in agreement. * Telephone Encounter - Iman Rosales RN - 04/19/2023 12:00 PM EST Attempted to contact pt on 2 different phone number. Sales Representative Wire Rope did speak with pt and she refused appt. I called back to the number and the message states that the number is blocked and they will not accept the call. Attempted cell phone number and unable to leave message. Will attempt call again later. Pt told sod stripper that she only needs to see Dr Caal. Please advise. * Telephone Encounter - Iman Rosales RN - 04/19/2023 11:33 AM EST Please arrange for pt to be seen by Dr Calvo in [place] today if possible. * Telephone Encounter - Ángela Ding MD - 04/19/2023 11:24 AM EST Contacted by PCP April 17 regarding patient whom I saw early March [facility] on consultation forhyponatremia in the setting of nonalcoholic fatty liver disease: PCP concerned about worsening volume overload in questioning whether to resume aldactone. Pt on torsemide 20 mg bid and 1.5L daily FR. Endorses since d/c increasing LE edema, abd distension, exertional dyspnea; not repsonding to vol OL. Legs on PE w/ PCP at risk for seeping/wounds. RECOMMEND >>needs hospital d/c visit w/ any neph physician today or next week If unable to arrange visit today, have her do the following: -resume aldactone at 50 mg daily -increase torsemide to 100 mg in AM -recheck bmp on 04/22 or 04/23 -check ACR and uacm same date -log daily STANDING wt per HF protocols -<2 gm daily Na diet Sending TEAMS mssg to offer pt appt this PM; else as above Dr Luiz leyva documented in this encounter Plan of Treatment Upcoming Encounters Date Type Department Care Team (Late st Contact Info) Description 04/22/2023 1:00 PM EST [facility] [address] [facility] [place] [phone] [facility] [address] [facility] [place] [address] 04/23/2023 11:00 AM EST Telemedicine [facility], [facility] 132 [facility] [place], [place] [address] Crystal Cheng CRNP 132 [facility] [place], [place] [address] 05/22/2023 3:00 PM EST Office Visit Hepatology, [facility] [address] [facility] [address] Aniyah Mora DO [address] [facility] [address] 07/01/2023 4:00 PM EST Office Visit Nephrology, [address] [place], [place] [address] Mahsa Calvo MD [address] [place] [address] [place] [address] 07/03/2023 2:00 PM EST Laboratory Laboratory, [facility] [address] [facility] [phone] [facility] [address] [facility] [address] 07/16/2023 2:30 PM EST Office Visit Rheumatology [place] [phone] [facility] [place], [place] [address] Bishop Quinones CRNP [address] [facility] [place], [place] [address] 09/17/2023 2:40 PM EDT Office Visit Family [facility] [address] [facility], [place] [phone] Mark Caal MD [address] [facility] [phone] 09/24/2023 2:00 PM EDT Laboratory Laboratory, [facility] [address] [facility] [place] [phone] Karen Olivo [address] [facility] [place] [address] 10/01/2023 2:00 PM EDT Office Visit Hematology/Oncology [facility] [place] [address] [facility] [address] Della Zhong CRNP [address] [place] [address] Scheduled Procedures Name Priority Associated Diagnoses Date/Ti [...] D LEVEL ONCE IN A LIFETIME-USE SMARTSET# 16063 Completed 08/30/2022, 11/26/2019, 12/28/2013 Influenza Vaccine (FLU [...] this encounter Medical Devices Implanted Type Area Software Test Automation Engineer Device Identifier Shelf Expiration Date Model / Serial / Lot Surface Articular - [id number] Implanted:Qty: 1 on 09/15/2009 at OR [facility] Right: Knee [employer] 04/19/2015 [id number] 0-20 / / [id number] Clip Quick 2.8mm 230cm - [id number] Implanted:Qty: 1 on 07/25/2021 by Lisa Sullivan MD at [facility]COPY [facility] Colon [employer] 09/17/2023 [id number]-[id number] / / [id number] documented as of this encounter Advance Directives Documents on File Type Date Recorded Patient Talent Sourcing Specialist Expl anation Advance Directives and Living [...] the patient have Health Care Power of Restrooms Or Lounges Maid? No Care Teams Cut Off Operator Scorer Relationship Specialty Start Date End Date Mark Caal MD [address] [place] [address] PCP - General Family Medicine 07/21/18 documented as of this encounter
--- OUTSIDE RECORDS SUMMARY | 2023-05-15 23:10 | External Medical Summary | Summary of Care ---
Author Name Unknown Organization [facility] Address [address] [place] [address] Phone [phone] Care Team Providers Care Welding Machine Operator Helper Gas Name Role Phone Mark Caal MD Primary Care Provider +1- [phone] Reason for Visit * Reason Comments Chronic Kidney Disease (CKD) Extreme mai ma Encounter Details Date Type Department Care Team (Late st Contact Info) Description 04/19/2023 2:00 PM EST Office Visit Nephrology, [facility] [address] [place] [address] Mahsa Calvo MD [address] [place] [address] DOLORES (acute kidney injury) (HCC)*; Hepatic cirrhosis, unspecified hepatic cirrhosis type, unspecified whether ascites present (HCC) Allergies Active Allergy Reactions Criticality Noted [...] the morning. 90 Tablet 1 04/19/2023 Active Torsemide 20 MG Oral Tablet (Demadex) [...] mRNA, LNP-s, No Pre serve, 2-Dose Series ([employer]) 03/27/2021,08/16/2020,07/19/2020 Pneumococcal Conjugate Vacc, 13 Valent (Prevnar) [...] Sign Reading Time Taken Comments Blood Pressure 131/81 04/19/2023 1:51 PM EST Pulse 101 04/19/2023 1:51 PM EST Temperature 35.7 C (96.3 F) 04/19/2023 1:51 PM ES T Respiratory Rate 26 04/19/2023 1:51 PM EST Oxygen Saturation 99% 04/19/2023 1:51 PM EST Inhaled Oxygen Concentration - - Weight 87.5 kg (193 lb) 04/19/2023 1:51 PM EST Height - - Body Mass Index 36.47 04/17/2023 11:12 AM EST documented in this encounter Functional Status [...] as of this encounter Progress Notes * Mahsa Calvo MD - 04/19/2023 2:04 PM EST REASON FOR CONSULT: Decompensated cirrhosis, acute kidney injury Requesting physician:Mahsa Calvo MD HPI: Juli Knapp is a 73 year old female seen in initial consultation for acute kidney injury and decompensated cirrhosis with volume overload. Past medical history of diastolic CHF with EF of 65%, hypertension, COPD, nonalcoholic fatty liver disease with cirrhosis, type 2 diabetes controlled on diet, hyponatremia, left breast cancer status post surgery on anastrozole and fairly normal renal function at baseline. Patient recently hospitalized at [facility] from 03/22-03/28 with CHF and hyponatremia with sodium of 119. She received IV fluids and was discharged on torsemide 20 mg twice daily. Prior diuretic was Lasix. Main complaint is weight gain since discharge she has gained about 30 lb. She alsohas leg swelling and exertional dyspnea. Her sats are good int he mid 90's. She is not taking in a lot of salt. She drinks about 32 to 40 ounces. Accompanied by for today's visit Review of Systems: General ROS: negative for - chills or fever Psychological ROS: negative for - mood swings ENT ROS: negative for - nasal congestion or nasal discharge Endocrine ROS: negative Respiratory ROS: +shortness of breath Cardiovascular ROS: +dyspnea on exertion Gastrointestinal ROS: no abdominal pain, change in bowel habits, or black or bloody stools Genito-Urinary ROS: no dysuria, trouble voiding, or hematuria Musculoskeletal ROS: negative for - muscle pain Neurological ROS: no TIA or stroke symptoms Dermatological ROS: negative for rash Past Medical History: Diagnosis Date Asthma, moderate [...] MD at OR [facility] COLONOSCOPY 03/28/2011 COLONOSCOPY, DIAGNOSTIC (RECTUM) 12/10/2017 TVA polyp, repeat 6 mo/COLONOSCOPY FLEXIBLE PROXIMAL DIAGNOSTIC performed by Lisa Sullivan MD at ENDOSCOPY [facility] COLONOSCOPY, DIAGNOSTIC (RECTUM) 08/18/2018 diverticulosis, flex sig 1 yr/COLONOSCOPY FLEXIBLE PROXIMAL DIAGNOSTIC performed by Lisa Sullivan MD at ENDOSCOPY [facility] COLONOSCOPY, DIAGNOSTIC (RECTUM) 07/25/2021 adenomatous & hyperplastic polyps, repeat 3 yrs / COLONOSCOPY FLEXIBLE PROXIMAL DIAGNOSTIC performed by Lisa Sullivan MD at ENDOSCOPY [facility] EGD, FLEXIBLE, DIAGNOSTIC 11/11/2018 esophageal varices, portal hypertensive gastropathy, repeat 6 wks/ESOPHAGOGASTRODUODENOSCOPY (EGD),FLEXIBLE, TRANSORAL, DIAGNOSTIC performed by Lisa Sullivan MD at ENDOSCOPY [facility] EGD, FLEXIBLE, DIAGNOSTIC 01/26/2019 esophageal varices, portal hypertensive gastropathy, repeat 6 wks/[facility] EGD, FLEXIBLE, DIAGNOSTIC 03/23/2019 benign hyperplastic gastric polyp / [facility] EGD, FLEXIBLE, DIAGNOSTIC 01/26/2019 eso varices, repeat 6 wks/[facility] EGD, FLEXIBLE, DIAGNOSTIC 08/25/2019 portal hypertensive gastropathy, repeat 1 yr / ESOPHAGOGASTRODUODENOSCOPY (EGD), FLEXIBLE, TRANSORAL, DIAGNOSTIC performed by Lisa Sullivan MD at ENDOSCOPY [facility] EGD, FLEXIBLE, DIAGNOSTIC 07/25/2021 Portal hypertensive gastropathy, sm eso varices, repeat 6 mo / ESOPHAGOGASTRODUODENOSCOPY (EGD), FLEXIBLE, TRANSORAL, DIAGNOSTIC performed by Lisa Sullivan MD at ENDOSCOPY [facility] EGD, FLEXIBLE, DIAGNOSTIC N/A 09/07/2022 small hiatal hernia/grade I esophageal varices/portal hypertensive gastropathy/recall 1 year/ESOPHAGOGASTRODUODENOSCOPY (EGD), FLEXIBLE, TRANSORAL, DIAGNOSTIC performed by Lisa Sullivan MD at [facility] IDENTIFY SENTINEL NODE, RADIOACTIVE TRACER Left 10/16/2017 INJECTION PROCEDURE FOR IDENTIFICATION SENTINEL NODE performed by Denise Singh MD at OR [facility] SIDNEY FLEX SIGMOID DIAGNOSITIC 08/25/2019 normal, repeat 1 yr / SIGMOIDOSCOPY FLEXIBLE DIAGNOSTIC performed by Lisa Sullivan MD at ENDOSCOPY [facility] KNEE ARTHROSCOPY/MENISCECTOMY Left 07/08/2019 ARTHROSCOPY KNEE MEDIAL OR LATERAL MENISCECTOMY performed by Dahiana Madrid DO at OR [facility] MASTECTOMY, PARTIAL Left 10/16/2017 10/16/2017 MASTECTOMY PARTIAL performed by Dneise Singh MD at [facility] PARTIAL HYSTERECTOMY 1983 REDUCTION OF BREAST Bilateral 1998 REMOVAL OF BOWEL LESION(S) 01/1998 diverticulitis REMOVAL OF OVARY/OVIDUCT(S) 1985 REMOVE ADDED SPINE LAMINA, 1 SEG N/A 09/09/2020 LAMINECTOMY FACETECTOMY AND FORAMINOTOMY ADDITIONAL LEVELS performed by Rg Stewart MD at OR [facility] REMOVE GALLBLADDER REMOVE LUMBAR SPINE LAMINA, 1 SEG N/A 09/09/2020 LAMINECTOMY FACETECTOMY AND FORAMINOTOMY LUMBAR performed by Rg Stewart MD at OR [facility] REMOVE TONSILS & ADENOIDS, UNDER 12 T & A, age<12 REPAIR BOWEL-BLADDER FISTULA 07/1998 REPAIR INITIAL INCISIONAL HERNIA 08/1999 REPAIR OF NASAL SEPTUM 2010 Nasal Septum Repair REVISE KNEE JOINT REPLACEMENT 09/15/2009 TOTAL KNEE REVISION ONE COMPONENT performed by Clem MAYO at [facility] SACROILIAC JOINT INJECT W/GUIDANCE 02/08/2020 INJECTION SACROILIAC JOINT performed by Vahid Rutherford DO at [facility] TENDON SHEATH INCISION, FINGER Left 05/10/2015 TRIGGER FINGER RELEASE performed by Shiv Stovall MD at OR [facility] US GUIDED BREAST BIOPSY LEFT Left 09/26/2017 [...] as needed for Constipation. 2838 mL 3 Torsemide 100 MG Oral Tablet (Demadex) Take 1 Tablet by mouth in the morning. 90 Tablet 3 Potassium Chloride ER 20 MEQ Oral Tablet Extended Release Take 1 Tablet by mouth in the morning. 90Tablet 1 Psyllium 51.7 % Oral Packet 1 Dose [...] taking: Reported on 04/19/2023) 90 Tablet 3 No current facility-administered medications for this visit. Family History Problem Relation Age of Onset Allergies Sister food allergies Prostate cancer Grandfather (Paternal) 90 metastatic? Other (Gallbladder Cancer) Sister 66 Social History Socioeconomic History Marital status: Spouse [...] Resource Strain: Not on file Food Insecurity: No Food Insecurity (03/06/2023) Hunger Vital Sign Worried About Running Out of Food in the Last Year: Never true Ran Out of Food in the Last Year: Never true Transportation Needs: Not on file Physical Activity: Not on file Stress: Not on file Social Connections: Not on file Intimate Partner Violence: Not on file Housing Stability: Not on file Filed Vitals: 04/19/23 1351 BP: 131/81 Pulse: 101 Resp: 26 Temp: 35.7 C (96.3 F) SpO2: 99% Weight: 87.5 kg (193 lb) PHYSICAL EXAM: GENERAL: Well-appearing, Alert, in no acute distress. EYES: PERRL, conjunctivae anicteric. ENT: Mucous membranes moist, oropharynx clear. NECK: Supple, no JVD. LYMPH: No cervical or supraclavicular lymphadenopathy. LUNGS: Clear to auscultation bilaterally, no respiratory distress. CARDIAC: Regular rate and rhythm, normal S1/S2, no murmurs, rubs, or gallops. ABDOMEN: Soft, non-tender, non-distended, bowel sounds present. EXT/MSK: No clubbing, cyanosis, 2+ edema. SKIN: No rash, no jaundice. NEURO: Oriented x3, No tremor, no asterixis. LABS/STUDIES: Recent Labs Units 04/17/23 1304 04/02/23 1048 03/21/23 1213 10/31/22 0954 SODIUM - [facility] mmol/L 130* 130* 122* 138 POTASSIUM - [facility] mmol/L 3.8 3.8 3.9 4.4 CHLORIDE - [facility] mmol/L 92* 95* 85* 103 CO2 - [facility] mmol/L 27 23 22 26 BUN - [facility] mg/dL 21* 17 29* 11 CREATININE - [facility] mg/dL 1.2* 0.8 1.1* 0.7 Recent Labs Units 03/21/23 1213 10/31/22 0954 08/30/22 1252 WBC AUTO - [facility] K/uL 9.89 3.86* 5.92 HGB - [facility] g/dL 11.0* 12.9 11.4* PLATELET AUTO - [facility] K/uL 177 106* 103* Recent Labs Units 04/17/23 1304 04/02/23 1048 03/21/23 1213 10/31/22 0954 08/30/22 1252 CALCIUM - [facility] mg/dL 7.8* 7.7* 8.2* 8.7 8.2* 25-HYDROXY VITAMIN D - [facility] ng/mL -- -- -- -- 57 Recent Labs Units 03/21/23 1213 07/23/22 0929 01/29/22 1449 HEMOGLOBIN A1C - [facility] % 5.2 5.6 5.8* No results for input(s): "MICROALBUMIN", "PROCRRATIO" in the last 65465 hours. ASSESSMENT/PLAN: Juli was seen today for chronic kidney disease (ckd). Diagnoses and all orders for this visit: DOLORES (acute kidney injury) (HCC) - BASIC METABOLIC PANEL; Future Patient with acute kidney injury likely related to decompensated cirrhosis. Recent creatinine of 1.2 from normal baseline of 0.8. Patient also has hyponatremia with sodium of 130. Hyponatremia is likely hypervolemic. We are increasing her torsemide to 100 mg daily. Will hold off on giving Aldactonewhich might worsen hyponatremia. Will add potassium chloride 20 mEq daily. Will repeat a BMP on Saturday. Hepatic cirrhosis, unspecified hepatic cirrhosis type, unspecified whether ascites present (HCC) Patient with decompensated cirrhosis and now worsening volume overload. We increasing torsemide to 100 mg daily. I emphasized low-salt diet and maintaining a fluid limit of 1.2 L daily. She will continue to measure daily weight. She will call in with her weight log early next week. Other orders - Torsemide 100 MG Oral Tablet (Demadex); Take 1 Tablet by mouth in the morning. - Potassium Chloride ER 20 MEQ Oral Tablet Extended Release; Take 1 Tablet by mouth in the morning. Follow Up: Return in about 6 weeks (around 05/31/2023). Mahsa Calvo MD Nephrology, [address] [place] [address] This note was generated with the help of voice recognition software. Please excuse for errors. documented in this encounter Nursing Notes * Iman Rosales RN - 04/19/2023 1:52 PM EST Urgent visit today due to increased edema. Severe dyspnea on exertion. +4 pitting edema in lower legs and feet. Pt states she has had 1-3 lb weight gain daily. present with pt. Pt really doesnot want to go to the hospital. Able to calm breathing after rest. Please review Dr Ding recommendations. documented in this encounter Plan of Treatment Upcoming Encounters Date Type Department Care Team (Late st Contact Info) Description 04/22/2023 1:00 PM EST Laboratory Laboratory, [facility] [address] [facility] [phone] Karen Olivo [address] [facility] [place] [address] 04/23/2023 11:00 AM EST Telemedicine [facility], [facility] [address] [facility] [place] [address] Crystal Cheng CRNP [address] [facility] [address] 05/22/2023 3:00 PM EST Office Visit Hepatology, [facility] [address] [facility] [place] [address] Aniyah Mora DO [address] [place] [address] 07/01/2023 4:00 PM EST Office Visit Nephrology, [address] [place] [address] Mahsa Calvo MD [address] [place] [address] [place] [id number] 07/03/2023 2:00 PM EST Laboratory Laboratory, [facility] [address] [facility] [place] [phone] Karen Olivo [facility] [address] 07/16/2023 2:30 PM EST Office Visit Rheumatology [facility] [address] [facility] [place], [place] [address] Bishop Quinones CRNP [address] [facility] [place] [address] 09/17/2023 2:40 PM EDT Office Visit Family [facility] [address] [place] [phone] Mark Caal MD [address] [place] [address] 09/24/2023 2:00 PM EDT Laboratory Laboratory, [facility] [address] [facility] [phone] [facility] [address] [facility] [address] 10/01/2023 2:00 PM EDT Office Visit Hematology/Oncology [facility] [address] [facility] [place] [address] Della Zhong CRNP [address] [facility] [address] Scheduled Orders Name Type Priority Associated Diagnoses Orde r Schedule BASIC METABOLIC PANEL Lab Routine DOLORES (acute kidney injury) (HCC) Expected: 04/22/2023, Expires: 04/19/2024 Scheduled Procedures Name Priority Associated Diagnoses Date/Ti [...] D LEVEL ONCE IN A LIFETIME-USE SMARTSET# [id number] Completed 08/30/2022, 11/26/2019, 12/28/2013 Influenza Vaccine (FLU [...] this encounter Medical Devices Implanted Type Area Irrigation Technician Device Identifier Shelf Expiration Date Model / Serial / Lot Surface Articular - [id number] Implanted:Qty: 1 on 09/15/2009 at OR [facility] Right: Knee [employer] 04/19/2015 00-5994-03 0-20 / / [id number] Clip Quick 2.8mm 230cm - [id number] Implanted:Qty: 1 on 07/25/2021 by Lisa Sullivan MD at ENDOSCOPY [facility] Colon [employer] 09/17/2023 [id number]-202UR.[id number] / / [id number] documented as of this encounter Visit Diagnoses Diagnosis DOLORES (acute kidney injury) (HCC)- Primary Acute kidney failure, unspecified Hepatic cirrhosis, unspecified hepatic cirrhosis type, unspecified whether ascites present (HCC) documented in this encounter Advance Directives Documents on File Type Date Recorded Patient Rouge Presser Expl anation Advance Directives and Living Will [...] the patient have Health Care Power of Black Ash Burner Operator? No Care Teams Welding Machine Operator Helper Gas Relationship Specialty Start Date End Date Mark Caal MD [address] [facility] [place] [place] [address] PCP - General Family Medicine 07/21/18 documented as of this encounter
--- OUTSIDE RECORDS SUMMARY | 2023-05-15 23:10 | External Medical Summary ---
Author Name Unknown Address Unknown Organization K0G:[facility] [place] [facility] [address] [place] [address] Laboratory Report Ordering Provider Test Date Status GROVER SHARP 04/17/2023 13:04:02 Final Observation Date Value Abnormality Reference (Units ) Status BUN 04/17/2023 13:04:02 21 Above high normal 6-20 (mg/dL) Final Creatinine 04/17/2023 13:04:02 1.2 Above high normal 0.5-1.0 (mg/dL) Final Glomerular filtration rate/1.73 sq M.predicted [Volume Rate/Area] in Serum, Plasma or Blood by Creatinine-based formula (CKD-EPI) 04/17/2023 13:04:02 50 Below low normal >=60 (mL/min) Final eGFR is calculated based on the CKD-EPI 2020 equation SODIUM 04/17/2023 13:04:02 130 Below low normal 135 -146 (mmol/L) Final Potassium 04/17/2023 13:04:02 3.8 3.5-5.1 (m mol/L) Final Cl 04/17/2023 13:04:02 92 Below low normal 98- 107 (mmol/L) Final CO2 04/17/2023 13:04:02 27 22-32 (mmo l/L) Final Anion gap 04/17/2023 13:04:02 11 7-15 (mmol /L) Final Glucose 04/17/2023 13:04:02 109 70-120 (mg /dL) Final Calcium 04/17/2023 13:04:02 7.8 Below low normal 8.4 -10.2 (mg/dL) Final Performing Location [facility] [address] [place] [address]
--- OUTSIDE RECORDS SUMMARY | 2023-05-15 23:10 | External Medical Summary | Summary of Care ---
Author Name Unknown Organization [facility] Address [address] [place] [address] Phone [phone] Care Team Providers Care Laundry Sorter Name Role Phone Mark Caal MD Primary Care Provider +1- [phone] Reason for Visit * Reason Onset Date Comments Advice 04/05/2023 Encounter Details Date Type Department Care Team (Late st Contact Info) Description 04/05/2023 Telephone [facility] [address] [place] [address] Mark Caal MD [address] [place] [address] Advice Allergies Active Allergy Reactions [...] mRNA, LNP-s, No Pre serve, 2-Dose Series ([employer]) 03/27/2021,08/16/2020,07/19/2020 Pneumococcal Conjugate Vacc, 13 Valent (Prevnar) [...] [facility]- has relatives that are SOFTWARE SECURITY CONSULTANT's would like them to come into home to take care of patient instead of having an outside agency do so. Would like to discuss further. * Telephone Encounter - Vanessa Hernandez OSA - 04/15/2023 8:56 AM EST Scheduled. 04/15/2023 * Telephone Encounter - Vanessa Hernandez OSA - 04/12/2023 3:28 PM EST Called the home number and it says "this call is being screened by [employer]. Please hang up". I called the cell [...] AM and 1 in PM) for Sat, Sat, Sat. Continue to check daily weights. Call pt Saturday for an update on any change with increased torsemide. If worsening weight and or symptoms over the weekend, should be evaluated - even if ED documented in this encounter Plan of Treatment Upcoming Encounters Date Type Department Care Team (Late st Contact Info) Description 04/16/2023 12:30 PM EST [facility] Visit [facility] [address] [place] [address] Lisa Avalos RN [address] [place] [address] 04/17/2023 11:20 AM EST Office Visit [facility] [address] [place] [address] Mark Caal MD [address] [place] [address] 04/23/2023 11:00 AM EST Telemedicine [facility] [place], [facility] [address] [place] [address] Crystal Cheng CRNP [address] [place] [address] 05/22/2023 3:00 PM EST Office Visit Hepatology, [facility] [address] [place] [address] Aniyah Mora DO [address] [place] [address] 07/03/2023 2:00 PM EST Laboratory Laboratory, [facility] [address] [place] [phone] Karen Olivo [facility] [address] [place] [address] 07/16/2023 2:30 PM EST Office Visit Rheumatology [facility] [address] [facility] [place] [address] Bishop Quinones CRNP [address] [facility] [place], [place] [address] 09/17/2023 2:40 PM EDT Office Visit Family [facility] [place] [address] [place] [phone] Mark Caal MD [address] [place] [address] 09/24/2023 2:00 PM EDT Laboratory Laboratory, [facility] [address] [place] [phone] [facility] [address] [place] [address] 10/01/2023 2:00 PM EDT Office Visit Hematology/Oncology [facility] [address] [facility] [place], [place] [address] Della Zhong CRNP [address] [place] [address] Scheduled Procedures Name Priority Associated Diagnoses Date/Ti [...] D LEVEL ONCE IN A LIFETIME-USE SMARTSET# [id number] Completed 08/30/2022, 11/26/2019, 12/28/2013 Influenza Vaccine (FLU [...] this encounter Medical Devices Implanted Type Area Spa Associate Device Identifier Shelf Expiration Date Model / Serial / Lot Surface Articular - [id number] Implanted:Qty: 1 on 09/15/2009 at [place] [facility] Right: Knee [employer] 04/19/2015 [id number] 0-20 / / [id number] Clip Quick 2.8mm 230cm - [id number] Implanted:Qty: 1 on 07/25/2021 by Lisa Sullivan MD at ENDOSCOPY [facility] Colon [employer] 09/17/2023 [id number] / / [id number] documented as of this encounter Advance Directives Documents on File Type Date Recorded Patient Pharmaceutical Sales Specialist Expl anation Advance Directives and Living [...] the patient have Health Care Power of Theoretical Physicist? No Care Teams Laundry Sorter Relationship Specialty Start Date End Date Mark Caal MD [address] [place] [address] PCP - General Family Medicine 07/21/18 documented as of this encounter
--- OUTSIDE RECORDS SUMMARY | 2023-05-15 23:10 | External Medical Summary | Summary of Care ---
Author Name Unknown Organization [facility] Address [address] [place] [address] Phone [phone] Care Team Providers Care Goring Cutter Name Role Phone Mark Caal MD Primary Care Provider +1- [phone] Reason for Visit * Reason Onset Date Comments Appointment 04/19/2023 Encounter Details Date Type Department Care Team (Late st Contact Info) Description 04/19/2023 Telephone Nephrology, Nalini [place] [address] [facility] [place] [address] DingÁngela maldonado MD [address] [facility] [place] [address] Appointment Allergies Active Allergy Reactions Criticality Noted [...] mRNA, LNP-s, No Pre serve, 2-Dose Series (Motobuykers) 03/27/2021,08/16/2020,07/19/2020 Pneumococcal Conjugate Vacc, 13 Valent (Prevnar) [...] contact pt on 2 different phone number. Credit Control Assistant did speak with pt and she refused appt. I called back to the number and the message states that the number is blocked and they will not accept the call. Attempted cell phone number and unable to leave message. Will attempt call again later. Pt told lithoduplicator operator that she only needs to see Dr Caal. Please advise. * Telephone Encounter - Iman Rosales RN - 04/19/2023 11:33 AM EST Please arrange for pt to be seen by Dr Calvo in [place] today if possible. * Telephone Encounter - Ángela Ding MD - 04/19/2023 11:24 AM EST Contacted by PCP April 17 regarding patient whom I saw early [facility] on consultation forhyponatremia in the setting of [...] 04/19/2023 2:00 PM EST Office Visit Nephrology, [address] [place] [address] Mahsa Calvo MD [address] [place] [address] 04/23/2023 11:00 AM EST [facility]icine [facility] [address] [place] [address] Crystal Cheng CRNP [address] [place] [address] 05/22/2023 3:00 PM EST Office Visit Hepatology, [facility] [address] [facility] [place] [address] Aniyah Mora DO [address] [place] [address] 07/03/2023 2:00 PM EST Laboratory Laboratory, [facility] 132 [place] [address] Karen [facility] 132 [facility] [place] [address] 07/16/2023 2:30 PM EST Office Visit [place] [address] [place] [address] Bishop Quinones CRNP [address] [place] [address] 09/17/2023 2:40 PM EDT Office Visit [facility] [address] [place] [address] Mark Caal MD [address] [place] [address] 09/24/2023 2:00 PM EDT Laboratory Laboratory, [facility] 132 [facility] [place] [address] Karen Olivo [address] [facility] [place] [address] 10/01/2023 2:00 PM EDT Office Visit Hematology/Oncology Nalini Neff [place] 200 [facility] [place] [address] Della Zhong CRNP [address] [place] [address] Scheduled Procedures Name Priority Associated Diagnoses Date/Ti [...] D LEVEL ONCE IN A LIFETIME-USE SMARTSET# [id number] Completed 08/30/2022, 11/26/2019, 12/28/2013 Influenza Vaccine (FLU [...] this encounter Medical Devices Implanted Type Area Drilling Field Professional Device Identifier Shelf Expiration Date Model / Serial / Lot Surface Articular - [id number] Implanted:Qty: 1 on 09/15/2009 [place] [facility] Right: Knee [employer] 04/19/2015 00-5994-03 0-20 / / [id number] Clip Quick 2.8mm 230cm - [id number] Implanted:Qty: 1 on 07/25/2021 by Lisa Sullivan MD at ENDOSCOPY [facility] Colon [employer] 09/17/2023 HX-202UR.A / / [id number] documented as of this encounter Advance Directives Documents on File Type Date Recorded Patient Business Office Representative Expl anation Advance Directives and Living [...] patient have Health Care Power of Equipment Specialist? No Care Teams Goring Cutter Relationship Specialty Start Date End Date Mark Caal MD [address] [place] [address] PCP - General Family Medicine 07/21/18 documented as of this encounter
--- OUTSIDE RECORDS SUMMARY | 2023-05-15 23:10 | External Medical Summary | Summary of Care ---
Author Name Unknown Organization [facility] Address [address] [facility] [address] Phone [phone] Care Team Providers Care Technical Support Assistant Name Role Phone Mark Caal MD Primary Care Provider +1- [phone] Reason for Visit * Reason Onset Date Comments No Show 04/16/2023 Encounter Details Date Type Department Care Team (Late st Contact Info) Description 04/16/2023 12:30 PM EST Home Visit [facility], [facility] [address] [place] [address] Lisa Avalos, RN [address] [place] [address] NO SHOW/FAILED TO KEEP APPOINTMENT* Allergies Active Allergy Reactions Criticality Noted Date [...] as of this encounter Progress Notes * Lisa Avalos RN - 04/16/2023 12:41 PM EST Arrived to patient's home. She answered door. Introduced myself and she proceeded to say that she did not want [facility] services. 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 This nurse started to explain services of [facility] and what it could offer to her and still refused - stated "I told them I don't need you coming". GAH episode closed. Routed to PCP and OPCM. Patient failed to keep scheduled appointment. Lisa Avalos, RN documented in this encounter Plan of Treatment Upcoming Encounters Date Type Department Care Team (Late st Contact Info) Description 04/17/2023 11:20 AM EST Office Visit [place] [address] [place] [facility] [address] Mark Caal MD [address] [facility] [place] [address] 04/23/2023 11:00 AM EST [facility]medicine [facility] [place], [facility] [address] [facility] [place] [address] Crystal Cheng CRNP [address] [facility] [place] [address] 05/22/2023 3:00 PM EST Office Visit Hepatology, [facility] [place] [address] Aniyah Mora DO [address] [facility] [place] [address] 07/03/2023 2:00 PM EST Laboratory Laboratory, [facility] 132 [facility] [place] [address] [facility] [address] [facility], [place] [address] 07/16/2023 2:30 PM EST Office Visit Rheumatology [place] [address] [facility] [place], [place] [address] Bishop Quinones CRNP [facility] [place] [address] 09/17/2023 2:40 PM EDT Office Visit [place] [address] [place] [facility] [place] [phone] Mark Caal MD [address] [facility] [place] [address] 09/24/2023 2:00 PM EDT Laboratory Laboratory, [facility] 132 [facility] [phone] [facility] 132 [place] [address] 10/01/2023 2:00 PM EDT Office Visit Hematology/Oncology [facility] 200 [place] [address] Della Zhong CRNP [address] [place] [address] Scheduled Procedures Name Priority Associated Diagnoses Date/Ti [...] D LEVEL ONCE IN A LIFETIME-USE SMARTSET# [id number] Completed 08/30/2022, 11/26/2019, 12/28/2013 Influenza Vaccine (FLU [...] this encounter Medical Devices Implanted Type Area Hoisting Engineer Device Identifier Shelf Expiration Date Model / Serial / Lot Surface Articular - [id number] Implanted:Qty: 1 on 09/15/2009 at [place] [facility] Right: Knee [employer] 04/19/2015 00-5994-03 0-20 / / [id number] Clip Quick 2.8mm 230cm - [id number] Implanted:Qty: 1 on 07/25/2021 by Lisa Sullivan MD at [facility]COPY [facility] Colon [employer] 09/17/2023 HX-202UR.A / / [id number] documented as of this encounter Visit Diagnoses Diagnosis NO SHOW/FAILED TO KEEP APPOINTMENT- Primary documented in this encounter Advance Directives Documents on File Type Date Recorded Patient Heater Furnace Expl anation Advance Directives and Living Will [...] the patient have Health Care Power of Wood Fence Erector? No Care Teams Technical Support Assistant Relationship Specialty Start Date End Date Mark Caal MD [address] [place] [address] PCP - General Family Medicine 07/21/18 documented as of this encounter
--- OUTSIDE RECORDS SUMMARY | 2023-05-15 23:10 | External Medical Summary | Summary of Care ---
Author Name Unknown Organization [facility] Address [address] [place] [address] Phone [phone] Care Team Providers Care Fuel Storage Technician Name Role Phone Mark Caal MD Primary Care Provider +1- [phone] Reason for Visit * Reason Onset Date Comments Advice 04/05/2023 Encounter Details Date Type Department Care Team (Late st Contact Info) Description 04/05/2023 Telephone [facility] [address] [place] [address] Mark Caal MD [address] [place] [address] Advice Allergies Active Allergy Reactions [...] as of this encounter (statuses as of 04/15/2023) Medications Medication Sig Dispensed Refills Start Date [...] as of this encounter (statuses as of 04/15/2023) Active Problems Problem Noted Date Diagnosed Date [...] as of this encounter (statuses as of 04/15/2023) Resolved Problems Problem Noted Date Diagnosed Date [...] as of this encounter (statuses as of 04/15/2023) Immunizations Name Administration Dates Next Due COVID-19 mRNA, LNP-s, No Pre serve, 2-Dose Series (Allmoxy) 03/27/2021,08/16/2020,07/19/2020 Pneumococcal Conjugate Vacc, 13 Valent (Prevnar) [...] encounter Miscellaneous Notes * Telephone Encounter - Vanessa Hernandez OSA - 04/15/2023 8:56 AM EST Scheduled. 04/15/2023 * Telephone Encounter - Vanessa Hernandez OSA - 04/12/2023 3:28 PM EST Called the home number and it says "this call is being screened by [facility]. Please hang up". I called the cell [...] Description 04/16/2023 12:30 PM EST Home Visit [facility] [address] [place] [address] Lisa Avalos, RN [address] [place] [address] 04/17/2023 11:20 AM EST Office Visit [place] [address] [facility] [place] [place] [address] Mark Caal MD [address] [place] [facility] [place] [address] 04/23/2023 11:00 AM EST [facility]medicine [facility], [facility] [address] [place] [address] Crystal Cheng CRNP [address] [facility] [place] [place] [address] 05/22/2023 3:00 PM EST Office Visit Hepatology, [facility] [address] [facility] [place] [place] [address] Aniyah Mora DO [address] [place] [address] 07/03/2023 2:00 PM EST Laboratory Laboratory, [facility] 132 [facility] [place] [address] [facility] 132 [place] [address] 07/16/2023 2:30 PM EST Office Visit Rheumatology [place] [address] [facility] [place], [place] [address] Bishop Quinones CRNP [address] [facility] [place], [place] [address] 09/17/2023 2:40 PM EDT Office Visit [place] [address] [facility] [place] [address] Mark Caal MD [address] [place] [address] 09/24/2023 2:00 PM EDT Laboratory Laboratory, [facility] 132 [facility] [phone] [facility] 132 [place] [address] 10/01/2023 2:00 PM EDT Office Visit Hematology/Oncology [facility] 200 [facility] [place] [address] Della Zhong CRNP [address] [place] [address] Scheduled Procedures Name Priority Associated Diagnoses Date/Ti [...] D LEVEL ONCE IN A LIFETIME-USE SMARTSET# [id number] Completed 08/30/2022, 11/26/2019, 12/28/2013 Influenza Vaccine (FLU [...] this encounter Medical Devices Implanted Type Area Pole Lift Operator Device Identifier Shelf Expiration Date Model / Serial / Lot Surface Articular - [id number] Implanted:Qty: 1 on 09/15/2009 at OR [facility] Right: Knee [employer] 04/19/2015 00-5994-03 0-20 / / [id number] Clip Quick 2.8mm 230cm - [id number] Implanted:Qty: 1 on 07/25/2021 by Lisa Sullivan MD at ENDOSCOPY [facility] Colon [employer] 09/17/2023 HX-202UR.A / / [id number] documented as of this encounter Advance Directives Documents on File Type Date Recorded Patient Vice President Sales Expl anation Advance Directives and Living Will [...] the patient have Health Care Power of Boarder Hand? No Care Teams Fuel Storage Technician Relationship Specialty Start Date End Date Mark Caal MD [address] [facility] [address] PCP - General Family Medicine 07/21/18 documented as of this encounter
--- OUTSIDE RECORDS SUMMARY | 2023-05-15 23:11 | External Medical Summary | Summary of Care ---
Author Name Unknown Organization [facility] Address [address] [place] [address] Phone [phone] Care Team Providers Care Facility Environmental Technician Name Role Phone Mark Caal MD Primary Care Provider +1- [phone] Reason for Visit * Reason Onset Date Comments Advice 04/05/2023 Encounter Details Date Type Department Care Team (Late st Contact Info) Description 04/05/2023 Telephone [facility] [address] [place] [address] Makr Caal MD [address] [place] [address] Advice Allergies Active Allergy Reactions [...] as of this encounter (statuses as of 04/12/2023) Medications Medication Sig Dispensed Refills Start Date [...] as of this encounter (statuses as of 04/12/2023) Active Problems Problem Noted Date Diagnosed Date [...] as of this encounter (statuses as of 04/12/2023) Resolved Problems Problem Noted Date Diagnosed Date [...] as of this encounter (statuses as of 04/12/2023) Immunizations Name Administration Dates Next Due COVID-19 mRNA, LNP-s, No Pre serve, 2-Dose Series (Web [employer]) 03/27/2021,08/16/2020,07/19/2020 Pneumococcal Conjugate Vacc, 13 Valent (Prevnar) [...] encounter Miscellaneous Notes * Telephone Encounter - Mel Gold RN [...] 05/22/2023 3:00 PM EST Office Visit Hepatology, [facility] [place] [address] Aniyah Mora DO [address] [facility] [place], [place] [address] 07/03/2023 2:00 PM EST Laboratory Laboratory, [facility] 132 [facility] [place] [phone] Karen Olivo 132 [facility] [place] [address] 07/16/2023 2:30 PM EST Office Visit Rheumatology [place] [address] [facility] [place], [place] [address] Bishop Quinones CRNP [address] [facility] [place], [place] [address] 09/17/2023 2:40 PM EDT Office Visit [facility] [address] [place] [address] Mark Caal MD [address] [place] [address] 09/24/2023 2:00 PM EDT Laboratory Laboratory, [facility] 132 [facility] [place] [phone] Karen Olivo 132 [facility] [place] [address] 10/01/2023 2:00 PM EDT Office Visit Hematology[facility]On[facility] 200 [facility] [place], [place] [address] Della Zhong CRNP [address] [place] [address] Scheduled Procedures Name Priority Associated Diagnoses Date/Ti [...] D LEVEL ONCE IN A LIFETIME-USE SMARTSET# [id number] Completed 08/30/2022, 11/26/2019, 12/28/2013 Influenza Vaccine (FLU [...] encounter Medical Devices Implanted Type Area Software Configuration Specialist Device Identifier Shelf Expiration Date Model / Serial / Lot Surface Articular - [id number] [place]planted:Q[place] 1 [place] 09/15/2009 [place] [facility] [place] Right: Knee [employer] 04/19/2015 00-5994-03 0-20 / / [id number] Clip Quick 2.8mm 230cm - [id number] Implanted:Qty: 1 on 07/25/2021 by Lisa Sullivan MD at ENDOSCOPY [facility] Colon [employer] 09/17/2023 HX-202UR.A / / [id number] documented as of this encounter Advance Directives Documents on File Type Date Recorded Patient Parts Room Associate Expl anation Advance Directives and Living Will [...] the patient have Health Care Power of Character Actress? No Care Teams Facility Environmental Technician Relationship Specialty Start Date End Date Mark Caal MD [address] [facility] [place] [place] [address] PCP - General Family Medicine 07/21/18 documented as of this encounter
--- OUTSIDE RECORDS SUMMARY | 2023-05-15 23:11 | External Medical Summary | Summary of Care ---
Author Name Unknown Organization [facility] Address [address] [place] [address] Phone [phone] Care Team Providers Care Radiation Protection Technician Name Role Phone Mark Caal MD Primary Care Provider +1- [phone] Reason for Visit * Reason Onset Date Comments Advice 04/05/2023 Encounter Details Date Type Department Care Team (Late st Contact Info) Description 04/05/2023 Telephone [facility] [address] [place] [address] Mark Caal MD [address] [place] [address] Advice Allergies Active Allergy Reactions [...] mRNA, LNP-s, No Pre serve, 2-Dose Series (A[employer]ve[employer]) 03/27/2021,08/16/2020,07/19/2020 Pneumococcal Conjugate Vacc, 13 Valent (Prevnar) [...] encounter Miscellaneous Notes * Telephone Encounter - Mark Caal MD [...] 05/22/2023 3:00 PM EST Office Visit Hepatology, [facility] [address] [facility] [facility] [place] [address] Aniyah Mora DO 132 [facility] [place] [address] 07/03/2023 2:00 PM EST Laboratory Laboratory, [facility] 132 [facility] [address] Karen Olivo [facility] 132 [facility] [address] 07/16/2023 2:30 PM EST Office Visit Rheumatology [place] [address] [facility] [place], [place] [address] Bishop Quinones CRNP [facility] [place] [address] 09/17/2023 2:40 PM EDT Office Visit [facility] [address] [place] [phone] Mark Caal MD [address] [place] [address] 09/24/2023 2:00 PM EDT Laboratory Laboratory, [facility] 132 [facility] [place] [address] Karen Olivo 132 [facility] [place] [address] 10/01/2023 2:00 PM EDT Office Visit Hematology/Oncology [facility] [place] [address] [facility] [place], [place] [address] Della Zhong CRNP 400 [facility] [place] [address] Scheduled Procedures Name [...] D LEVEL ONCE IN A LIFETIME-USE SMARTSET# [id number] Completed 08/30/2022, 11/26/2019, 12/28/2013 Influenza Vaccine (FLU [...] this encounter Medical Devices Implanted Type Area Can Operator Device Identifier Shelf Expiration Date Model / Serial / Lot Surface Articular - [id number] Implanted:Qty: 1 on 09/15/2009 at [place] [facility] [place] Right: Knee [employer] 04/19/2015 00-5994-03 0-20 / / [id number] Clip Quick 2.8mm 230cm - [id number] Implanted:Qty: 1 on 07/25/2021 by Lisa Sullivan MD at ENDOSCOPY [facility] Colon [employer] 09/17/2023 HX-202UR.A / / [id number] documented as of this encounter Advance Directives Documents on File Type Date Recorded Patient Guidance Director Expl anation Advance Directives and Living Will [...] the patient have Health Care Power of Metallurgical Laboratory Assistant? No Care Teams Radiation Protection Technician Relationship Specialty Start Date End Date Mark Caal MD [address] [facility] [place] [place] [address] PCP - General Family Medicine 07/21/18 documented as of this encounter
--- OUTSIDE RECORDS SUMMARY | 2023-05-15 23:11 | External Medical Summary | Summary of Care ---
Author Name Unknown Organization [facility] Address [address] [place] [address] Phone [phone] Care Team Providers Care Supplier Relationship Director Name Role Phone Mark Caal MD Primary Care Provider +1- [phone] Reason for Visit * Reason Onset Date Comments Advice 04/05/2023 Encounter Details Date Type Department Care Team (Late st Contact Info) Description 04/05/[address] [facility] [address] [place] [address] Mark Caal MD [address] [place] [address] Advice Allergies Active Allergy Reactions [...] mRNA, LNP-s, No Pre serve, 2-Dose Series ([employer]) 03/27/2021,08/16/2020,07/19/2020 Pneumococcal Conjugate Vacc, 13 Valent (Prevnar) [...] 3:00 PM EST Office Visit Hepatology, [facility] [address] [place] [address] Aniyah Mora DO [address] [place] [address] 07/03/2023 2:00 PM EST Laboratory Laboratory, [facility] [address] [place] [phone] Karen Olivo 132 [place] [address] 07/16/2023 2:30 PM EST Office Visit [address]umatology [address] [address] Bishop Quinones CRNP [address] [facility] [place], [place] [address] 09/17/2023 2:40 PM EDT Office Visit [facility] [address] [place] [address] Mark Caal MD [address] [place] [address] 09/24/2023 2:00 PM EDT Laboratory Laboratory, [facility] [address] [place] [address] [facility] [address] [place] [address] 10/01/2023 2:00 PM EDT Office Visit Hematology/Oncology [facility] 200 [facility] [place], [place] [address] Della Zhong CRNP 400 [facility] [place] [id number] Scheduled Procedures Name Priority Associated Diagnoses Date/Ti [...] D LEVEL ONCE IN A LIFETIME-USE SMARTSET# [id number] Completed 08/30/2022, 11/26/2019, 12/28/2013 Influenza Vaccine (FLU [...] this encounter Medical Devices Implanted Type Area Molder Closed Molds Device Identifier Shelf Expiration Date Model / Serial / Lot Surface Articular - [id number] [place]:Q[place] 1 [place]2009 [place] [facility] [place]: Knee [employer] 04/19/2015 00-5994-03 0-20 / / [id number] Clip Quick 2.8mm 230cm - [id number] Implanted:Qty: 1 on 07/25/2021 by Lisa Sullivan MD at ENDOSCOPY [facility] Colon [employer] 09/17/2023 HX-202UR.A / / [id number] documented as of this encounter Advance Directives Documents on File Type Date Recorded Patient Corrugator Expl anation Advance Directives and Living Will [...] the patient have Health Care Power of Spool Winder? No Care Teams Supplier Relationship Director Relationship Specialty Start Date End Date Mark Caal MD [address] [facility] [place] [address] PCP - General Family Medicine 07/21/18 documented as of this encounter
--- OUTSIDE RECORDS SUMMARY | 2023-05-15 23:11 | External Medical Summary | Summary of Care ---
Author Name Unknown Organization [facility] Address [address] [facility] [address] Phone [phone] Care Team Providers Care Powdered Sugar Supervisor Name Role Phone Mark Caal MD Primary Care Provider +1- [phone] Reason for Visit * Reason Onset Date Comments [facility]: Screening 04/12/2023 Encounter Details Date Type Department Care Team (Late st Contact Info) Description 04/12/2023 Telephone [facility], [facility] [address] [place] [address] [facility], Nurse [facility] [address] [facility] [place] [address] [facility]: Screening Allergies Active Allergy Reactions Criticality Noted Date [...] mRNA, LNP-s, No Pre serve, 2-Dose Series ([employer]) 03/27/2021,08/16/2020,07/19/2020 Pneumococcal Conjugate Vacc, 13 Valent (Prevnar) [...] encounter Miscellaneous Notes * Telephone Encounter - Jannie Mott LPN - 04/12/2023 3:08 PM EST Juli Knapp was referred as a potential candidate for enrollment for [facility]. A review of this chart was completed and: Juli meets criteria for [facility]. Jump to Initiation Referring care team was notified via : Epic communication Sent to enrollment chat documented in this encounter Plan of Treatment Upcoming Encounters Date Type Department Care Team (Amalia jacobs Contact Info) Description 05/22/2023 3:00 PM EST Office Visit Hepatology, [facility] [address] [facility] [place] [address] Aniyah Mora DO [address] [place] [address] 07/03/2023 2:00 PM EST Laboratory Laboratory, [facility] 132 [facility] [place] [phone] Karen Olivo [facility] 132 [facility] [place] [address] 07/16/2023 2:30 PM EST Office Visit [address]umatology [address] [address] Bishop Quinones CRNP [address] [place] [address] [place], [place] [address] 09/17/2023 2:40 PM EDT Office Visit [facility] [address] [place] [phone] Mark Caal MD [address] [place] [address] 09/24/2023 2:00 PM EDT Laboratory Laboratory, [facility] 132 [facility] [place] [phone] Karen Olivo [facility] 132 [facility] [place] [address] 10/01/2023 2:00 PM EDT Office Visit Hematology/Oncology [facility] 200 [facility] [place] [address] Della Zhong CRNP [address] [place], [place] [address] [phone] Scheduled Procedures Name Priority Associated Diagnoses Date/Ti [...] 03/19/2024 023, 03/14/2023, 10/19/2021 GFR 04/02/2024 04/02/2023, 110 06/2022, 10/31/2022, Additional history exists COLONOSCOPY-EVERY 3 YRS AGES 18-100 07/25/2024 07/25/2021, 07/25/2021, 08/25/2019, Additional history exists Lipid Panel 01/29/2027 01/29/2022, 10/18, 09/20/2008, Additional history exists Hepatitis C Screening Completed 04/08/2018 Pneumococcal Vaccine: 65+ Years Completed 11/21/2018, 06/07/2017, 09/18/2011 Colonoscopy Discontinued 07/25/2021, 03/0 12/2021, 08/18/2018, Additional history exists Colorectal Cancer Screening Discontinued VITAMIN D LEVEL ONCE IN A LIFETIME-USE SMARTSET# [id number] Completed 08/30/2022, 11/26/2019, 12/28/2013 Influenza Vaccine (FLU [...] this encounter Medical Devices Implanted Type Area Parking Lot Laborer Device Identifier Shelf Expiration Date Model / Serial / Lot Surface Articular - [id number] Implanted:Qty[place] 1 [place] [facility] [place]: Knee [employer] 04/19/2015 00-5994-03 0-20 / / [id number] Clip Quick 2.8mm 230cm - [id number] Implanted:Qty: 1 on 07/25/2021 by Lisa Sullivan MD at [facility]COPY [facility] Colon [employer] 09/17/2023 HX-202UR.A / / [id number] documented as of this encounter Advance Directives Documents on File Type Date Recorded Patient Him Specialist Expl anation Advance Directives and Living [...] the patient have Health Care Power of High Speed Printer Operator? No Care Teams Powdered Sugar Supervisor Relationship Specialty Start Date End Date Mark Caal MD [address] [place] [address] PCP - General Family Medicine 07/21/18 documented as of this encounter
--- OUTSIDE RECORDS SUMMARY | 2023-05-15 23:11 | External Medical Summary | Summary of Care ---
Author Name Unknown Organization [facility] Address [address] [place] [address] Phone [phone] Care Team Providers Care Web Merchant Name Role Phone Mark Caal MD Primary Care Provider +1- [phone] Reason for Visit * Reason Onset Date Comments Advice 04/05/2023 Encounter Details Date Type Department Care Team (Late st Contact Info) Description 04/05/2023 Telephone [facility] [address] [place] [address] Mark Caal MD [address] [place] [address] Advice Allergies Active Allergy Reactions [...] mRNA, LNP-s, No Pre serve, 2-Dose Series ([employer]) 03/27/2021,08/16/2020,07/19/2020 Pneumococcal Conjugate Vacc, 13 Valent (Prevnar) [...] "this call is being screened by smart [employer]. Please hang up". I called the cell [...] 05/22/2023 3:00 PM EST Office Visit Hepatology, [facility] [address] [place] [address] Aniyah Mora DO [address] [place] [address] 07/03/2023 2:00 PM EST Laboratory [facility], [facility] 132 [facility] [place] [phone] Karen Olivo 132 [facility] [place] [address] 07/16/2023 2:30 PM EST Office Visit Rheumatology [facility] [address] [facility] [place] [address] Bishop Quinones CRNP [address] [facility] [place] [address] 09/17/2023 2:40 PM EDT Office Visit [facility] [address] [place] [phone] Mark Caal MD [address] [place] [address] 09/24/2023 2:00 PM EDT Laboratory [facility], [facility] 132 [facility] [place] [phone] Karen Olivo 132 [facility] [place] [address] 10/01/2023 2:00 PM EDT Office Visit [facility] [place] 200 [facility] [place] [address] Della Zhong CRNP [address] [facility] [place] [address] Scheduled Procedures Name Priority Associated Diagnoses Date/Ti [...] D LEVEL ONCE IN A LIFETIME-USE SMARTSET# 33574 Completed 08/30/2022, 11/26/2019, 12/28/2013 Influenza Vaccine (FLU [...] this encounter Medical Devices Implanted Type Area Home Visits Nurse Device Identifier Shelf Expiration Date Model / Serial / Lot Surface Articular - [id number] Implanted:Qty: 1 on 09/15/2009 [place] [facility] [place]: Knee [employer] 04/19/2015 00-5994-03 0-20 / / [id number] Clip Quick 2.8mm 230cm - [id number] Implanted:Qty: 1 on 07/25/2021 by Lisa Sullivan MD at ENDOSCOPY [facility] Colon [employer] 09/17/2023 HX-202UR.A / / [id number] documented as of this encounter Advance Directives Documents on File Type Date Recorded Patient Inbound Call Center Representative Expl anation Advance Directives and Living [...] the patient have Health Care Power of Media Consultant Outside Sales? No Care Teams Web Merchant Relationship Specialty Start Date End Date Mark Caal MD [address] [place] [address] PCP - General Family Medicine 07/21/18 documented as of this encounter
--- OUTSIDE RECORDS SUMMARY | 2023-05-15 23:11 | External Medical Summary | Summary of Care ---
Author Name Unknown Organization [facility] Address [address] [place] [address] Phone [phone] Care Team Providers Care Almond Blancher Hand Name Role Phone Mark Caal MD Primary Care Provider +1- [phone] Reason for Visit * Reason Onset Date Comments [facility]: Engagement 04/12/2023 Encounter Details Date Type Department Care Team (Late st Contact Info) Description 04/12/2023 Telephone [facility], [address] [place] [address] Services, Scheduling [address] [place] [address] [facility]: Engagement Allergies Active Allergy Reactions Criticality Noted Date [...] mRNA, LNP-s, No Pre serve, 2-Dose Series (joiz) 03/27/2021,08/16/2020,07/19/2020 Pneumococcal Conjugate Vacc, 13 Valent (Prevnar) [...] encounter Miscellaneous Notes * Telephone Encounter - Alexus Bradshaw OSA - 04/12/2023 4:05 PM EST [facility] Enrollment Form Screening: Referral Source: [facility] Primary Reason for Referral (Select most relevant): No data was found Engagement: Engagement Attempt 1: Contacted - Agreed to home-based services Scheduled appointment information: No data was found Home Information: Has pets, Has Wi-Fi, Has smart device Advance Care Planning (ACP): No data was found Has Living Will or Advance Directive: Yes - have available for first visit Anticipated Sub-Program: Focused Care Management (3-9 months) Confirmation of Sub-Program Type (by care steam locomotive firer/fireman): No data was found Handoff Information: Current care team notified via: No data was found Current telemonitoring equipment: No data was found [facility] son [phone] and I called him and got appts all set as follows 04/16@1230 willie/Robbie and 04/23@11 w/Prosper/Asuncion telemed documented in this encounter Plan of Treatment Upcoming Encounters Date Type Department Care Team (Late st Contact Info) Description 04/16/2023 12:30 PM EST Home Visit [facility], [facility] 132 [facility] [place] [address] Lisa Avalos RN [address] [place] [address] 04/23/2023 11:00 AM EST [facility] [place], [facility] 132 [facility] [place] [address] Crystal Cheng CRNP [facility] [place] [address] 05/22/2023 3:00 PM EST Office Visit Hepatology, [facility] 132 [facility] [place] [address] Aniyah Mora DO [address] [place] [address] 07/03/2023 2:00 PM EST Laboratory Laboratory, [facility] 132 [facility] [place] [phone] Karen Olivo [facility] 132 [facility] [place] [address] 07/16/2023 2:30 PM EST Office Visit Rheumatology [address], [place] [address] Bishop Quinones CRNP [address] [facility] [place] [address] 09/17/2023 2:40 PM EDT Office Visit [facility] [address] [place] [facility] [place] [phone] Mark Caal MD [address] [place] [address] 09/24/2023 2:00 PM EDT Laboratory Laboratory, [facility] 132 [place] [phone] [facility] 132 [place] [address] 10/01/2023 2:00 PM EDT Office Visit Hematology/Oncology [facility] 200 [facility] [place], [place] [address] Della Zhong CRNP 400 [facility] [place] [address] Scheduled Procedures Name Priority Associated Diagnoses Date/Ti [...] FOR COPD 09/08/2023 09/07/2022 HbA1c 09/19/2023 03/21/2023, 10/2022, 01/29/2022, Additional history exists DTaP,Tdap,and Td [...] D LEVEL ONCE IN A LIFETIME-USE SMARTSET# [id number] Completed 08/30/2022, 11/26/2019, 12/28/2013 Influenza Vaccine (FLU [...] this encounter Medical Devices Implanted Type Area Work Order Detailer Device Identifier Shelf Expiration Date Model / Serial / Lot Surface Articular - [id number] Implanted:Qty: 1 on 09/15/2009 at [place] [facility] Right: Knee [employer] 04/19/2015 00-5994-03 0-20 / / [id number] Clip Quick 2.8mm 230cm - [id number] Implanted:Qty: 1 on 07/25/2021 by Lisa Sullivan MD at ENDOSCOPY [facility] Colon [email or web address] 09/17/2023 HX-202UR.A / / [id number] documented as of this encounter Advance Directives Documents on File Type Date Recorded Patient Coyote Hunter Expl anation Advance Directives and Living Will [...] the patient have Health Care Power of Boot Turner? No Care Teams Almond Blancher Hand Relationship Specialty Start Date End Date Mark Caal MD [address] [place] [facility] [place] [address] PCP - General Family Medicine 07/21/18 documented as of this encounter
--- OUTSIDE RECORDS SUMMARY | 2023-05-15 23:11 | External Medical Summary | Summary of Care ---
Author Name Unknown Organization [facility] Address [address] [place] [address] Phone [phone] Care Team Providers Care Development Technical Lead Name Role Phone Mark Caal MD Primary Care Provider +1- [phone] Reason for Visit * Reason Onset Date Comments Advice 04/05/2023 Encounter Details Date Type Department Care Team (Late st Contact Info) Description 04/05/2023 Telephone [facility] [address] [place] [address] Mark Caal MD [address] [place] [address] Advice Allergies Active Allergy [...] mRNA, LNP-s, No Pre serve, 2-Dose Series ([email or web address]) 03/27/2021,08/16/2020,07/19/2020 Pneumococcal Conjugate Vacc, 13 Valent (Prevnar) [...] 3:00 PM EST Office Visit Hepatology, [facility] [place] [address] Aniyah Mora DO [facility] [place] [place] [address] 07/03/2023 2:00 PM EST Laboratory Laboratory, [facility] 132 [facility] [place] [phone] Karen Olivo [address] [facility] [place] [address] 07/16/2023 2:30 PM EST Office Visit Rheumatology [place] [phone] [facility] [place], [place] [address] Bishop Quinones CRNP [address] [facility] [place], [place] [address] 09/17/2023 2:40 PM EDT Office Visit [facility] [address] [place] [address] Mark Caal MD [address] [place] [address] 09/24/2023 2:00 PM EDT Laboratory Laboratory, [facility] 132 [facility] [place] [phone] Karen Olivo [address] [facility] [place] [address] 10/01/2023 2:00 PM EDT Office Visit [facility] 200 [facility] [place], [place] [address] Della Zhong CRNP [address] [place] [address] Scheduled Procedures Name Priority Associated Diagnoses Date/Ti [...] D LEVEL ONCE IN A LIFETIME-USE SMARTSET# 56231 Completed 08/30/2022, 11/26/2019, 12/28/2013 Influenza Vaccine (FLU [...] this encounter Medical Devices Implanted Type Area Transfer Driver Device Identifier Shelf Expiration Date Model / Serial / Lot Surface Articular - [id number] Implanted:Qty: 1 on 09/15/2009 at [place] [facility] [place] Right: Knee [employer] 04/19/2015 00-5994-03 0-20 / / [id number] Clip Quick 2.8mm 230cm - [id number] Implanted:Qty: 1 on 07/25/2021 by Lisa Sullivan MD at ENDOSCOPY [facility] Colon [employer] 09/17/2023 HX-202UR.A / / [id number] documented as of this encounter Advance Directives Documents on File Type Date Recorded Patient Poly Packer And Heat Sealer Expl anation Advance Directives and Living Will [...] the patient have Health Care Power of Driver/Sales Workers? No Care Teams Development Technical Lead Relationship Specialty Start Date End Date Mark Caal MD [address] [place] [facility] [place] [address] PCP - General Family Medicine 07/21/18 documented as of this encounter
--- OUTSIDE RECORDS SUMMARY | 2023-05-15 23:11 | External Medical Summary | Summary of Care ---
Author Name Unknown Organization [facility] Address [address] [place] [address] Phone [phone] Care Team Providers Care Automotive Professional Name Role Phone Mark Caal MD Primary Care Provider +1- [phone] Reason for Visit * Reason Onset Date Comments Advice 04/05/2023 Encounter Details Date Type Department Care Team (Late st Contact Info) Description 04/05/2023 Telephone [facility] [address] [place] [address] Mark Caal MD [address] [place] [address] Advice Allergies Active Allergy Reactions [...] mRNA, LNP-s, No Pre serve, 2-Dose Series (Droid system master) 03/27/2021,08/16/2020,07/19/2020 Pneumococcal Conjugate Vacc, 13 Valent (Prevnar) [...] 05/22/2023 3:00 PM EST Office Visit Hepatology, [facility] [place] [address] Aniyah Mora DO [facility] [place], [place] [address] 07/03/2023 2:00 PM EST Laboratory Laboratory, [facility] 132 [facility] [place] [phone] Karen Olivo 132 [facility] [place] [address] 07/16/2023 2:30 PM EST Office Visit Rheumatology [place] [address]23[address] [facility] [place], [place] [address] Bishop Quinones CRNP 25[address] [facility] [place], [place] [address] 09/17/2023 2:40 PM EDT Office Visit [facility] [address] [place] [address] Mark Caal MD [address] [place] [address] 09/24/2023 2:00 PM EDT Laboratory Laboratory, [facility] 132 [facility] [place] [phone] Karen Olivo 132 [facility] [place] [address] 10/01/2023 2:00 PM EDT Office [facility] 200 [facility] [place], [place] [address] Della Zhong CRNP [address] [place] [address] Scheduled Procedures Name Priority Associated Diagnoses Date/Ti [...] D LEVEL ONCE IN A LIFETIME-USE SMARTSET# 47057 Completed 08/30/2022, 11/26/2019, 12/28/2013 Influenza Vaccine (FLU [...] this encounter Medical Devices Implanted Type Area [employer] Medic Device Identifier Shelf Expiration Date Model / Serial / Lot Surface Articular - [id number] Implanted:Qty: 1 on 09/15/[address] [facility] Right: Knee [employer] 04/19/2015 00-5994-03 0-20 / / [id number] Clip Quick 2.8mm 230cm - [id number] Implanted:Qty: 1 on 07/25/2021 by Lisa Sullivan MD at ENDOSCOPY [facility] Colon [employer] 09/17/2023 HX-202UR.A / / [id number] documented as of this encounter Advance Directives Documents on File Type Date Recorded Patient Recreation Facility Manager Expl anation Advance Directives and Living Will [...] the patient have Health Care Power of Peoplesoft Programmer? No Care Teams Automotive Professional Relationship Specialty Start Date End Date Mark Caal MD [address] [facility] [place] [address] PCP - General Family Medicine 07/21/18 documented as of this encounter
--- OUTSIDE RECORDS SUMMARY | 2023-05-15 23:11 | External Medical Summary | Summary of Care ---
Author Name Unknown Organization [facility] Address [address] [place] [address] Phone [phone] Care Team Providers Care Metalsmith Apprentice Name Role Phone Mark Caal MD Primary Care Provider +1- [phone] Reason for Visit * Reason Onset Date Comments Advice 04/05/2023 Encounter Details Date Type Department Care Team (Late st Contact Info) Description 04/05/[address] [facility] [address] [place] [address] Mark Caal MD [address] [place] [address] Advice Allergies Active Allergy Reactions [...] as of this encounter (statuses as of 04/08/2023) Medications Medication Sig Dispensed Refills Start Date [...] for Constipation. 2838 mL 3 03/28/2023 Active Amoxicillin 500 MG Oral Capsule (Amoxil) Take 1 Capsule by mouth in the morning and 1 Capsule at noon and 1 Capsule before bedtime. Do all this for 10 days. 30 Capsule 0 03/29/2023 Active Iron-Vitamin C 65-125 MG Oral Tablet (Vitron C)Indications:Anemia due to chronic blood loss Take 1 Tablet by mouth at bedtime. 90 Tablet 3 04/02/2023 Active documented as of this encounter (statuses as of 04/08/2023) Active Problems Problem Noted Date Diagnosed Date [...] as of this encounter (statuses as of 04/08/2023) Resolved Problems Problem Noted Date Diagnosed Date [...] as of this encounter (statuses as of 04/08/2023) Immunizations Name Administration Dates Next Due COVID-19 [...] encounter Miscellaneous Notes * Telephone Encounter - Padma Jackson LPN [...] 05/22/2023 3:00 PM EST Office Visit Hepatology, [facility] [address] [place] [address] Aniyah Mora DO [address] [place] [address] 07/03/2023 2:00 PM EST Laboratory Laboratory, [facility] [address] [place] [phone] Karen Olivo 132 [place] [address] 07/16/2023 2:30 PM EST Office Visit [address]umatology [address] [address] Bishop Quinones CRNP [address] [facility] [place] [address] 09/17/2023 2:40 PM EDT Office Visit [facility] [address] [facility], [place] [phone] Mark Caal MD [address] [place] [address] 09/24/2023 2:00 PM EDT Laboratory Laboratory, [facility] [phone] [facility] 132 [facility] [address] 10/01/2023 2:00 PM EDT Office Visit Hematology/Oncology [facility] [place] [address] [place] [address] Della Zhong CRNP [address] [facility] [place] [phone] Scheduled Procedures Name Priority Associated Diagnoses Date/Ti [...] D LEVEL ONCE IN A LIFETIME-USE SMARTSET# 19599 Completed 08/30/2022, 11/26/2019, 12/28/2013 Influenza Vaccine (FLU [...] this encounter Medical Devices Implanted Type Area Ship Joiner Device Identifier Shelf Expiration Date Model / Serial / Lot Surface Articular - [id number] Implanted:Qty: 1 on 09/15/2009 at [place] [facility] [place] Right: Knee [employer] 04/19/2015 00-5994-03 0-20 / / [id number] Clip Quick 2.8mm 230cm - [id number] Implanted:Qty: 1 on 07/25/2021 by Lisa Sullivan MD at ENDOSCOPY [facility] Colon [employer] 09/17/2023 HX-202UR.A / / [id number] documented as of this encounter Advance Directives Documents on File Type Date Recorded Patient Picked Edge Sewing Machine Operator Expl anation Advance Directives and [...] the patient have Health Care Power of Enlisted Advisor? No Care Teams Metalsmith Apprentice Relationship Specialty Start Date End Date Mark Caal MD [address] [facility] [place] [address] PCP - General Family Medicine 07/21/18 documented as of this encounter
--- OUTSIDE RECORDS SUMMARY | 2023-05-15 23:11 | External Medical Summary | Summary of Care ---
Author Name Unknown Organization [facility] Address [address] [place] [address] Phone [phone] Care Team Providers Care Engineer Name Role Phone Mark Caal MD Primary Care Provider [phone]- [phone] Reason for Visit * Reason Onset Date Comments Advice 04/05/2023 Encounter Details Date Type Department Care Team (Late st Contact Info) Description 04/05/2023 Telephone [facility] [address] [place] [address] Mark Caal MD [address] [place] [address] Advice Allergies Active Allergy Reactions [...] mRNA, LNP-s, No Pre serve, 2-Dose Series ([employer]) 03/27/2021,08/16/2020,07/19/2020 Pneumococcal Conjugate Vacc, 13 Valent (Prevnar) [...] 05/22/2023 3:00 PM EST Office Visit [facility] [address] [facility] [address] Aniyah Mora DO [facility] [address] 07/03/2023 2:00 PM EST Laboratory Laboratory, [facility] [address] [place] [phone] Karen Olivo [email or web address] [address] 07/16/2023 2:30 PM EST Office Visit Rheumatology [place] [address] [facility] [place], [place] [address] Bishop Quinones CRNP [facility] [place] [address] 09/17/2023 2:40 PM EDT Office Visit [facility] [address] [place] [phone] Mark Caal MD [address] [place] [address] 09/24/2023 2:00 PM EDT Laboratory Laboratory, [facility] 132 [facility] [place] [address] Karen Olivo 132 [facility] [place] [address] 10/01/2023 2:00 PM EDT Office Visit Hematology/Oncology [facility] [place] [address] [facility] [address] [place], [place] [address] Della Zhong CRNP [address] [facility] [place] [address] Scheduled Procedures [...] D LEVEL ONCE IN A LIFETIME-USE SMARTSET# [id number] Completed 08/30/2022, 11/26/2019, 12/28/2013 Influenza Vaccine (FLU [...] this encounter Medical Devices Implanted Type Area Railroad Baggage Porter Device Identifier Shelf Expiration Date Model / Serial / Lot Surface Articular - [id number] Implanted:Qty: 1 on 09/15/2009 at [place] [facility] [place] Right: Knee [employer] 04/19/2015 00-5994-03 0-20 / / [id number] Clip Quick 2.8mm 230cm - [id number] Implanted:Qty: 1 on 07/25/2021 by Lisa Sullivan MD at ENDOSCOPY [facility] Colon [employer] 09/17/2023 [id number]-202UR.A / / [id number] documented as of this encounter Advance Directives Documents on File Type Date Recorded Patient Insurance Sales Executive Expl anation Advance Directives and Living Will [...] the patient have Health Care Power of Pillowcase Folder? No Care Teams Engineer Relationship Specialty Start Date End Date Mark Caal MD [address] [facility] [place] [address] PCP - General Family Medicine 07/21/18 documented as of this encounter
--- OUTSIDE RECORDS SUMMARY | 2023-05-15 23:11 | External Medical Summary | Summary of Care ---
Author Name Unknown Organization [facility] Address [address] [place] [address] Phone [phone] Care Team Providers Care Certified Nurse Name Role Phone Mark Cala MD Primary Care Provider +1- [phone] Reason for Visit * Reason Onset Date Comments Advice 04/05/2023 Encounter Details Date Type Department Care Team (Late st Contact Info) Description 04/05/2023 Telephone [facility] [address] [place] [address] Mark Caal MD [address] [place] [address] Advice Allergies Active Allergy Reactions [...] mRNA, LNP-s, No Pre serve, 2-Dose Series ([employer] Bully Tracker) 03/27/2021,08/16/2020,07/19/2020 Pneumococcal Conjugate Vacc, 13 Valent (Prevnar) [...] 05/22/2023 3:00 PM EST Office Visit Hepatology, [facility] [place] [address] Aniyah Mora DO 132 [facility] [place] [address] 07/03/2023 2:00 PM EST Laboratory Laboratory, [facility] 132 [facility] [place] [address] Karen Olivo [place] 132 [facility] [address] 07/16/2023 2:30 PM EST Office Visit Rheumatology [place] [address] [facility] [place], [place] [address] Bishop Quinones CRNP [facility] [place] [address] 09/17/2023 2:40 PM EDT Office Visit [facility] [address] [facility] [place] [phone] Mark Caal MD [address] [place] [address] 09/24/2023 2:00 PM EDT Laboratory Laboratory, [place] 132 [facility] [place] [address] Karen Olivo 132 [facility] [place] [address] 10/01/2023 2:00 PM EDT Office Visit Hematology/Oncology [facility] [place] [address] [place], [place] [address] Della Zhong CRNP 400 [facility] [place] [address] Scheduled Procedures [...] D LEVEL ONCE IN A LIFETIME-USE SMARTSET# [id number] Completed 08/30/2022, 11/26/2019, 12/28/2013 Influenza Vaccine (FLU [...] encounter Medical Devices Implanted Type Area Home Sales Service Professional Device Identifier Shelf Expiration Date Model / Serial / Lot Surface Articular - [id number] Implanted:Qty: 1 on 09/15/2009 [place] [facility] [place] Right: Knee [employer] 04/19/2015 00-5994-03 0-20 / / [id number] Clip Quick 2.8mm 230cm - [id number] Implanted:Qty: 1 on 07/25/2021 by Lisa Sullivan MD at [facility] Colon [employer] 09/17/2023 [id number]-202UR.[id number] / / [id number] documented as of this encounter Advance Directives Documents on File Type Date Recorded Patient Maintenance Truck Driver Expl anation Advance Directives and Living Will [...] the patient have Health Care Power of Shipping And Receiving Assistant? No Care Teams Certified Nurse Relationship Specialty Start Date End Date Mark Caal MD [address] [facility] [place] [address] PCP - General Family Medicine 07/21/18 documented as of this encounter
--- OUTSIDE RECORDS SUMMARY | 2023-05-15 23:12 | External Medical Summary | Summary of Care ---
Author Name Unknown Organization [facility] Address [address] [place] [address] Phone [phone] Care Team Providers Care Silver Solderer Name Role Phone Mark Caal MD Primary Care Provider +1- [phone] Encounter Details Date Type Department Care Team (Late st Contact Info) Description 04/03/2023 Backend Tester Telephone Care Coordination and Integration [address] [place], [place] [id number] Henna Taylor, KAELA [address], [place] [phone] Allergies Active Allergy Reactions Criticality Noted Date [...] as of this encounter (statuses as of 04/03/2023) Medications Medication Sig Dispensed Refills Start Date [...] as of this encounter (statuses as of 04/03/2023) Active Problems Problem Noted Date Diagnosed Date [...] as of this encounter (statuses as of 04/03/2023) Resolved Problems Problem Noted Date Diagnosed Date [...] as of this encounter (statuses as of 04/03/2023) Immunizations Name Administration Dates Next Due COVID-19 [...] PM EST Office Visit Hepatology, [facility] [address] [place] [address] Aniyah Mora DO 132 [place] [address] 07/03/2023 2:00 PM EST Laboratory Laboratory, [facility] 132 [facility] [phone] Karen Olivos 132 [facility] [address] 07/16/2023 2:30 PM EST Office Visit Rheumat[facility] [address] [facility] [place], [place] [address] Bishop Quinones CRNP [address] [facility] [place], [place] [address] 09/17/2023 2:40 PM EDT Office Visit [facility] [address] [place] [phone] Mark Caal MD [address] [place] [address] 09/24/2023 2:00 PM EDT Laboratory Laboratory, [facility] 132 [facility] [phone] Karen Olivo 132 [facility] [address] 10/01/2023 2:00 PM EDT Office Visit Hematology/Oncology [facility] 200 [facility] [place], [place] [address] Della Zhong CRNP [address] [place] [address] Scheduled Procedures Name Priority Associated Diagnoses Date/Ti [...] D LEVEL ONCE IN A LIFETIME-USE SMARTSET# [id number] Completed 08/30/2022, 11/26/2019, 12/28/2013 Influenza Vaccine (FLU [...] this encounter Medical Devices Implanted Type Area Integrated Marketing Intern Device Identifier Shelf Expiration Date Model / Serial / Lot Surface Articular - [id number] Implanted:Qty: 1 on 09/15/2009 [place] [facility] [place] Right: Knee [employer] 04/19/2015 00-5994-03 0-20 / / [id number] Clip Quick 2.8mm 230cm - [id number] Implanted:Qty: 1 on 07/25/2021 by Lisa Sullivan MD at ENDOSCOPY [facility] Colon [employer] 09/17/2023 [id number]-202UR.A / / [id number] documented as of this encounter Advance Directives Documents on File Type Date Recorded Patient Nursing Manager Expl anation Advance Directives and Living [...] the patient have Health Care Power of Principal Cyber Engineer? No Care Teams Silver Solderer Relationship Specialty Start Date End Date aMrk Caal MD [address] [place] [address] PCP - General Family Medicine 07/21/18 documented as of this encounter
--- OUTSIDE RECORDS SUMMARY | 2023-05-15 23:12 | External Medical Summary ---
Author Name Unknown Address Unknown Organization K09:[facility] [place] [address] Laboratory Report Ordering Provider Test Date Status [facility] 04/02/2023 10:48:09 Final Observation Date Value Abnormality Reference (Units ) Status BUN 04/02/2023 10:48:09 17 6-20 (mg/dL) Final Creatinine 04/02/2023 10:48:09 0.8 0.5-1.0 (mg/dL) Final Glomerular filtration rate/1.73 sq M.predicted [Volume Rate/Area] in Serum, Plasma or Blood by Creatinine-based formula (CKD-EPI) 04/02/2023 10:48:09 79 >=60 (mL/min) Final eGFR is calculated based on the CKD-EPI 2020 equation SODIUM 04/02/2023 10:48:09 130 Below low normal 135 -146 (mmol/L) Final Potassium 04/02/2023 10:48:09 3.8 3.5-5.1 (m mol/L) Final Cl 04/02/2023 10:48:09 95 Below low normal 98- 107 (mmol/L) Final CO2 04/02/2023 10:48:09 23 22-32 (mmo l/L) Final Anion gap 04/02/2023 10:48:09 12 7-15 (mmol /L) Final Glucose 04/02/2023 10:48:09 137 Above high normal 70 -120 (mg/dL) Final Calcium 04/02/2023 10:48:09 7.7 Below low normal 8.4 -10.2 (mg/dL) Final Performing Location [facility] [place] [address]
--- OUTSIDE RECORDS SUMMARY | 2023-05-15 23:12 | External Medical Summary | Summary of Care ---
Author Name Unknown Organization [facility] Address [address] [place] [place] [place] [address] Phone [phone] Care Team Providers Care Assorter Laundry Name Role Phone Mark Caal MD Primary Care Provider [phone] Reason for Visit * Reason Onset Date Comments Follow Up 4m Medication Administration 04/02/2023 Flu an d/or Pneumo Inj Encounter Details Date Type Department Care Team (Late st Contact Info) Description 04/02/2023 11:00 AM EST Office Visit Hematology/Oncology [facility] [place] [address] [facility] [address] Della Zhong CRNP [address] [facility] [place] [address] PVT (portal vein thrombosis)*; History of breast cancer; Anemia due to chronic blood loss; Need for prophylactic vaccination and inoculation against influenza Allergies Active Allergy Reactions Criticality Noted Date [...] mRNA, LNP-s, No Pre serve, 2-Dose Series (Sharelook) 03/27/2021,08/16/2020,07/19/2020 Pneumococcal Conjugate Vacc, 13 Valent (Prevnar) [...] Sign Reading Time Taken Comments Blood Pressure 142/79 04/02/2023 10:55 AM EST Pulse 107 04/02/2023 10:55 AM EST Temperature 36.4 C (97.6 F) 04/02/2023 10:[address] Respiratory Rate 16 04/02/2023 10:55 AM EST Oxygen Saturation 98% 04/02/2023 10:55 AM EST Inhaled Oxygen Concentration - - Weight 76.9 kg (169 lb 8 oz) 04/02/2023 10:55 AM EST Height 154.9 cm (5' 1") 04/02/2023 10:55 AM EST Body Mass Index 32.03 04/02/2023 10:55 AM EST documented in this encounter Functional [...] this encounter Patient Instructions * Patient Instructions* Shahana Pyle LPN - 04/02/2023 11:44 AM EST ~~PATIENT INSTRUCTIONS FOR FLU SHOT~~ Possible side effects of influenza vaccine, (flu shot), are usually mild and include: 1. Soreness or redness at injection site 2. Low grade fever 3. Body aches You may use Tylenol/Acetaminophen as needed for these symptoms. LET YOUR DOCTOR KNOW IMMEDIATELY IF YOU HAVE DIFFICULTY BREATHING OR SWALLOWING, EXPERIENCE ITCHINGOF FEET OR HANDS, HAVE SWELLING OF EYES, FACE OR INSIDE OF NOSE. documented in this encounter Progress Notes * Shahana Pyle LPN - 04/02/2023 11:44 AM EST PRE - ADMINISTRATION DOCUMENTATION Are you experiencing any cold symptoms or fever? No Have you had Guillain-Irving Syndrome (an illness that causes paralysis) within the last 6 weeks? No Have you had the flu shot in the past? YES Have you ever had a reaction to the flu shot? No Shahana Pyle LPN, 04/02/2023 11:44 AM Immunization Administration Documentation Time Out Procedure Performed: Yes Patient Identified (Ask Name/Date of ): Yes Does the patient have a fever greater than 101 degrees today? No Patient allergic to latex? No VFC Stock: Yes, Does this patient qualify for immunization through the [facility] program because he/she (check only one): Yes-is enrolled in Medicaid Immunization(s) verified: Yes, Immunization Name: Flu, VIS Sheet(s) given: Yes Verified Side and Site: Yes Verified Shot(s) with Parent(s)/Patient: Yes * Della Zhong CRNP - 04/02/2023 10:33 AM EST Hematology/Oncology Outpatient Clinic note [facility] [address] [place], [place] [address] Name: Juli Knapp Date: 04/02/2023 CHIEF COMPLAINT: Juli Knapp is a 73 year old female patient of Dr. Munoz Julio Cesar here today for f/u visit today. From Patient chart confirmed with patient. From Dr. 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 Left Breast Cancer - ER positive, NJ positive, Her 2 Charlette negative. -Oncotype Dx score 21 Iron deficiency anemia Cancer Staging Stage IA DATE OF DIAGNOSIS: 2017 TREATMENT HISTORY: Left partial mastectomy and sentinel lymph node biopsy October 16, 2017 Adjuvant radiation therapy completed 01/01/18 Anastrozole completed 5 years in 03/2022 Received monoferric iron infusion on 08/01/2022 CURRENT TREATMENT: Observation ONCOLOGY HISTORY: Patient with past medical history significant for hypertension, liver cirrhosis, GERD, history of breast cancer was referred because of the recent incidental finding on the CT scan of nonocclusive thrombus in the main portal vein. She was recently admitted to the hospital and discharged on 01/22/2022 with the fever, dry cough headache and decreased appetite. She was found to have COVID-19 infection. She was also found to have pancytopenia and elevated liver enzyme. She was diagnosed liver cirrhosis about 3 years ago. This was diagnosed by imaging July 2018. Esophageal varicose were found, now post banding. No history of ascites or peripheral edema. She had a follow-up CT scan done on 03/27/2022 which revealed eccentric nonocclusive filling defect beginning in the splenic vein and extending into the main portal vein measures 2.9 cm length. Liver was shrunken, especially the right lobe. Lobular contour. No steatosis. No masslike arterial phase hyperenhancing observation. Patient was referred for further management. She was diagnosed of left stage IA breast cancer ER positive NJ positive her 2 Charlette negative which was found on screening mammogram. She did not feel any lumps or breast pain. She underwent bilateral screening mammogram August 20, 2017 which was abnormal and additional imaging was recommended. She haddiagnostic left mammogram September 16, 2017 which showed a small hypoechoic irregular lesion at 5:00 position, 7 cm from nipple. She underwent ultrasound-guided core biopsy of the left breast September 26, 2017 and pathology revealed infiltrating carcinoma, no special type, grade 2 with focal mucinous differentiation. 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 Primary tumor was 1.2 cm, DCIS intermediate grade, invasive carcinoma was 5.5 mm from the posterior margin, f inal posterior margin was negative. Pathologic stage p T1c p N0 c M0. ER+ NJ+ Her 2 charlette negative byFISH Oncotype Dx score 21 - Left breast biopsy 09/26/17 A. 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 [place] lymph node, #1, left, excision: One lymph [...] Currently she is taking anastrozole started on 10/2017. Pt decreased anastrozole dosage to 1/2 tab in Mar due to fatigue and arthritis pain Last DEXA bone density scan was done on 12/05/2021 which revealed high risk of fracture and compared to previous scan there was increase in the bone density. Currently she is taking vitamin D calciumand Prolia. Clinical management of portal vein thrombosis [...] may need to be determined on a sodn-da-govg basis and existing clinical data does not support routine anticoagulation of cirrhotic patients with asymptomatic PVT in the absence of underlying cancer. Interval History: Patient was admitted at [facility] 03/22/23 - 03/28/23 for acute hyponatremia and DOLORES. Corrected with gentle hydration. HISTORY OF PRESENT ILLNESS: Juli Knapp is a 73 year old female with a history as outlined above. Currently here for f/u visit today. Patient feeling well today. Having some increased swelling in her legs since stopping the spironolactone. Does get better when she has her legs elevated. Does not like to wear compression s tockings. No concerns with her breasts today. Denies headaches or blurry vision. Denies any new aches or pains. Denies drenching night sweats or unexplained weight loss. Denies SOB or CP other than her baseline. Bowels are moving normally with lactulose. Denies any melena or hematochezia. Past Medical History: Diagnosis Date Asthma, moderate [...] performed by Denise Singh MD at OR [facility] COLONOSCOPY 03/28/2011 COLONOSCOPY, DIAGNOSTIC (RECTUM) 12/10/2017 TVA polyp, repeat 6 mo/COLONOSCOPY FLEXIBLE PROXIMAL DIAGNOSTIC performed by Lisa Sullivan MD at ENDOSCOPY [facility] COLONOSCOPY, DIAGNOSTIC (RECTUM) 08/18/2018 diverticulosis, flex sig 1 yr/COLONOSCOPY FLEXIBLE PROXIMAL DIAGNOSTIC performed by Lisa Sullivan MD at ENDOSCOPY [facility] COLONOSCOPY, DIAGNOSTIC (RECTUM) 07/25/2021 adenomatous & hyperplastic polyps, repeat 3 yrs / COLONOSCOPY FLEXIBLE PROXIMAL DIAGNOSTIC performed by Lisa Sullivan MD at ENDOSCOPY [facility] EGD, FLEXIBLE, DIAGNOSTIC 11/11/2018 esophageal varices, portal hypertensive gastropathy, repeat 6 wks/ESOPHAGOGASTRODUODENOSCOPY (EGD),FLEXIBLE, TRANSORAL, DIAGNOSTIC performed by Lisa Sullivan MD at ENDOSCOPY [facility] EGD, FLEXIBLE, DIAGNOSTIC 01/26/2019 esophageal varices, portal hypertensive gastropathy, repeat 6 wks/[facility] EGD, FLEXIBLE, DIAGNOSTIC 03/23/2019 benign hyperplastic gastric polyp / [facility] EGD, FLEXIBLE, DIAGNOSTIC 01/26/2019 eso varices, repeat 6 wks/[facility] EGD, FLEXIBLE, DIAGNOSTIC 08/25/2019 portal hypertensive gastropathy, repeat 1 yr / ESOPHAGOGASTRODUODENOSCOPY (EGD), FLEXIBLE, TRANSORAL, DIAGNOSTIC performed by Lisa Sullivan MD at ENDOSCOPY [facility] EGD, FLEXIBLE, DIAGNOSTIC 07/25/2021 Portal hypertensive gastropathy, sm eso varices, repeat 6 mo / ESOPHAGOGASTRODUODENOSCOPY (EGD), FLEXIBLE, TRANSORAL, DIAGNOSTIC performed by Lisa Sullivan MD at ENDOSCOPY [facility] EGD, FLEXIBLE, DIAGNOSTIC N/A 09/07/2022 small hiatal hernia/grade I esophageal varices/portal hypertensive gastropathy/recall 1 year/ESOPHAGOGASTRODUODENOSCOPY (EGD), FLEXIBLE, TRANSORAL, DIAGNOSTIC performed by Lisa Sullivan MD at [facility] IDENTIFY SENTINEL NODE, RADIOACTIVE TRACER Left 10/16/2017 INJECTION PROCEDURE FOR IDENTIFICATION SENTINEL NODE performed by Denise Singh MD at [facility] SIDNEY FLEX SIGMOID DIAGNOSITIC 08/25/2019 normal, repeat 1 yr / SIGMOIDOSCOPY FLEXIBLE DIAGNOSTIC performed by Lisa Sullivan MD at ENDOSCOPY [facility] KNEE ARTHROSCOPY/MENISCECTOMY Left 07/08/2019 ARTHROSCOPY KNEE MEDIAL OR LATERAL MENISCECTOMY performed by Dahiana Madrid DO at [facility] MASTECTOMY, PARTIAL Left 10/16/2017 10/16/2017 MASTECTOMY PARTIAL performed by Denise Singh MD at [facility] PARTIAL HYSTERECTOMY 1983 REDUCTION OF BREAST Bilateral 1998 REMOVAL OF BOWEL LESION(S) 01/1998 diverticulitis REMOVAL OF OVARY/OVIDUCT(S) 1985 REMOVE ADDED SPINE LAMINA, 1 SEG N/A 09/09/2020 LAMINECTOMY FACETECTOMY AND FORAMINOTOMY ADDITIONAL LEVELS performed by Rg Stewart MD at OR [facility] REMOVE GALLBLADDER REMOVE LUMBAR SPINE LAMINA, 1 SEG N/A 09/09/2020 LAMINECTOMY FACETECTOMY AND FORAMINOTOMY LUMBAR performed by Rg Stewart MD at OR [facility] REMOVE TONSILS & ADENOIDS, UNDER 12 T & A, age<12 REPAIR BOWEL-BLADDER FISTULA 07/1998 REPAIR INITIAL INCISIONAL HERNIA 08/1999 REPAIR OF NASAL SEPTUM 2010 Nasal Septum Repair REVISE KNEE JOINT REPLACEMENT 09/15/2009 TOTAL KNEE REVISION ONE COMPONENT performed by Clem MAYO at [place] [facility] [place] SACROILIAC JOINT INJECT W/GUIDANCE 02/08/2020 INJECTION SACROILIAC JOINT performed by Vahid Rutherford DO at OR [facility] TENDON SHEATH INCISION, FINGER Left 05/10/2015 TRIGGER FINGER RELEASE performed by Shiv Stovall MD at OR [facility] US GUIDED BREAST BIOPSY LEFT Left 09/26/2017 09/26/2017 left breast core bx at 6:00 dx infiltrating carcinoma , no special type , grade 2 with focal mucinous differentiation Social History Socioeconomic History Marital status: Spouse [...] Housing Stability: Not on file Review of patient's allergies indicates: Allergen Reactions [...] needed. (Patient not taking: Reported on 03/11/2023) Calcium Carbonate-Vitamin D 600-400 MG-UNIT per chew tablet Take 1 Tab by mouth 2 times a day. 60 Tab 6 Milk Thistle 175 MG CAPS Take by mouth 1 Capsule daily . Docusate Sodium 100 MG Oral Capsule Take 1 Capsule by mouth 3 times a day as needed. (Patient not taking: Reported on 03/29/2023) Acetaminophen ER 650 MG Oral Tablet Extended [...] mouth every 6 hours as needed. Levalbuterol HCl 1.25 MG/3ML Inhalation Nebulization Solution (Xopenex) Inhale via nebulizer 1 Ampule every 4 hours as needed for Wheezing. (Patient not taking: Reported on 03/11/2023) 72 mL 12 Levalbuterol Tartrate 45 MCG/ACT Inhalation Aerosol (Xopenex [...] as needed for Constipation. 2838 mL 3 Amoxicillin 500 MG Oral Capsule (Amoxil) Take 1 Capsule by mouth in the morning and 1 Capsule at noon and 1 Capsule before bedtime. Do all this for 10 days. 30 Capsule 0 No current facility-administered medications for this visit. REVIEW OF SYSTEMS: See HPI - otherwise negative OBJECTIVE: Filed Vitals: 04/02/23 1055 BP: 142/79 Pulse: 107 Resp: 16 Temp: 36.4 C (97.6 F) TempSrc: Tympanic SpO2: 98% Weight: 76.9 kg (169 lb 8 oz) Height: 1.549 m (5' 1") Wt Readings from Last 5 Encounters: 04/02/23 76.9 kg (169 lb 8 oz) 03/29/23 73.7 kg (162 lb 6.4 oz) 03/11/23 69.7 kg (153 lb 9.6 oz) 02/25/23 78.5 kg (173 lb) 12/04/22 77.6 kg (171 lb 1.6 oz) PHYSICAL EXAM: ECOG: Performance Status 1 = 80-90% Symptoms but nearly ambulatory General Appearance: No acute distress Lymph Nodes: Normal - No palpable lymph nodes in the neck, supraclavicular or axillary areas Lungs/Thorax: Clear to auscultation, diminished in RLL Heart: Normal - Regular rate and rhythm, normal S1, S2, no appreciable murmurs Extremities: +1 BLE edema Neurologic: Normal - Grossly intact LABS: Results for orders placed or performed in visit on 03/21/23 AMMONIA Result Value Ref Range Ammonia 62 (H) 11 - 35 umol/L FERRITIN Result Value Ref Range Ferritin 63 13 - 150 ng/mL IRON SCREEN, INCLUDING TIBC Result Value Ref Range Iron 45 33 - 151 ug/dL Iron Binding Capacity 323 250 - 425 ug/dL Transferrin Saturation Percent 14 (L) 15 - 55 % HEMOGLOBIN A1C Result Value Ref Range Hemoglobin A1C 5.2 4.0 - 5.6 % Estimated Average Glucose 103 <126 mg/dL COMPREHENSIVE METABOLIC PANEL Result Value Ref Range BUN 29 (H) 6 - 20 mg/dL Creatinine 1.1 (H) 0.5 - 1.0 mg/dL Estimated Glomerular Filtration Rate 51 (L) >=60 mL/min Sodium 122 (L) 135 - 146 mmol/L Potassium 3.9 3.5 - 5.1 mmol/L Chloride 85 (L) 98 - 107 mmol/L CO2 22 22 - 32 mmol/L Anion Gap 15 7 - 15 mmol/L Glucose 164 (H) 70 - 120 mg/dL Albumin 3.3 (L) 3.8 - 5.0 g/dL AST 82 (H) 10 - 35 U/L Alkaline Phosphatase 128 35 - 130 U/L Bilirubin, Total 1.4 (H) <=1.2 mg/dL Calcium 8.2 (L) 8.4 - 10.2 mg/dL Protein 6.6 6.0 - 8.3 g/dL ALT 40 (H) 10 - 35 U/L CBC Result Value Ref Range WBC 9.89 4.00 - 10.80 K/uL RBC 3.30 3.85 - 5.15 M/uL HGB 11.0 (L) 12.0 - 15.3 g/dL HCT 32.3 (L) 36.0 - 45.2 % MCV 97.9 81.5 - 97.5 fL MCH 33.3 27.0 - 34.0 pg MCHC 34.1 32.0 - 36.0 g/dL RDW 14.9 11.5 - 15.5 % PLT 177 140 - 400 K/uL MPV 9.2 6.6 - 11.1 fL DIFFERENTIAL, AUTOMATED Result Value Ref Range WBC 9.89 4.00 - 10.80 K/uL Neutrophils % 65.3 40.0 - 75.0 % Lymphocytes % 15.6 (L) 18.0 - 42.0 % Monocytes % 18.4 (H) 1.0 - 11.0 % Eosinophils % 0.5 0.0 - 6.0 % Basophils % 0.2 0.0 - 2.0 % Absolute Neutrophils 6.46 1.80 - 7.70 K/uL Absolute Lymphocytes 1.54 1.00 - 4.80 K/ul Absolute Monocytes 1.82 (H) 0.00 - 1.10 K/uL Absolute Eosinophils 0.05 0.00 - 0.70 K/uL Absolute Basophils 0.02 0.00 - 0.20 K/uL PT INR Result Value Ref Range Prothrombin Time 14.7 11.6 - 15.2 seconds INR 1.1 0.8 - 1.2 *Note: Due to a large number of results and/or encounters for the requested time period, some results have not been displayed. A complete set of results can be found in Results Review. IMAGING: Bilateral Mammogram 11/28/22: Findings The breasts have scattered areas of fibroglandular density. Postsurgical changes related to breast conserving surgery for carcinoma are noted in the left breast. No new dominant mass or clustered microcalcifications suspicious for malignancy are identified. Impression Bilateral No mammographic evidence of malignancy. BI-RADS Category: 2 - Benign. Recommendation Screening mammogram in 1 year is recommended for both breasts. 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 History of Left Breast Cancer - ER positive, NJ positive, Her 2 Charlette negative. Iron deficiency anemia No indication for anticoagulation in setting of asymptomatic PVT Patient feeling clinically well today and physical exam is unremarkable Continue calcium/vitamin d supplementation and Prolia through Rheumatology Continue annual mammogram surveillance Lab results reviewed: Hgb stable at 11 Iron studies stable with ferritin of 63 and TSAT of 14% Renal function and LFTs stable Continue self breast exams In setting of chronic disease reasonable to keep ferritin between 100-200. Prescription sent for Vitron C one tablet daily. Will repeat cbc/diff, iron screen and ferritin in three months RTC in six months with provider with cbc/diff, cmp, iron screen and ferritin RAKEL Nicholas documented in this encounter Nursing Notes * Nereyda Mckeon, MANGLE FEEDER - 04/02/2023 10:56 AM EST Patient identifed by name and birthdate Do you have any concerns about pain management for today's visit? No Living Will or Advance Directive for Health Care as noted on the problem list. [facility] is a way you can talk to your provider on line through e-mail. Would you like to sign up? I can activate it for you? ALREADY ACTIVE Filed Vitals: 04/02/23 1055 BP: 142/79 Pulse: 107 Resp: 16 Temp: 36.4 C (97.6 F) TempSrc: Tympanic SpO2: 98% Weight: 76.9 kg (169 lb 8 oz) Height: 1.549 m (5' 1") Patient was instructed to not get up on the exam table/exam chair until directed and assisted by their provider; patient is to remain seated in the chair/ wheelchair/ exam table/ exam chair for fall prevention and safety reasons. Patient is aware to have assistance to step down off exam table/exam chair with personnel. Patient voiced full comprehension of instructions. Distress Score: 0 documented in this encounter Plan of Treatment Upcoming Encounters Date Type Department Care Team (Late st Contact Info) Description 05/22/2023 3:00 PM EST Office Visit Hepatology, [facility] [address] [facility] [place] [address] Aniyah Mora DO [address] [facility] [place] [address] 07/03/2023 2:00 PM EST Laboratory Laboratory, [facility] [address] [facility] [place] [id number] Karen Olivo [email or web address] [address] [facility] [place] [address] 07/16/2023 2:30 PM EST Office Visit Rheumatology [place] [id number] [facility] [place] [address] Bishop Quinones CRNP [facility] [place] [address] 09/17/2023 2:40 PM EDT [facility] Visit [facility] [address] [facility] [id number] Mark Caal MD [address] [place] [address] 09/24/2023 2:00 PM EDT Laboratory Laboratory, [facility] [address] [place] [phone] Karen Olivo [address] [place] [address] 10/01/2023 2:00 PM EDT Office Visit Hematology/Oncology [facility] [place] [address] [place], [place] [address] Della Zhong CRNP [address] [facility] [place] [address] Scheduled Orders Name Type Priority Associated Diagnoses Orde r Schedule CBC WITH WBC DIFFERENTIAL Lab STAT Anemia due to chronic blood loss PVT (portal vein thrombosis) History of breast cancer Every 3 Months for 4 Occurrences starting 04/03/2023 until 04/02/2024 IRON SCREEN, INCLUDING TIBC Lab STAT Anemia due to chronic blood loss PVT (portal vein thrombosis) History of breast cancer Every 3 Months for 4 Occurrences starting 04/03/2023 until 04/02/2024 FERRITIN Lab STAT Anemia due to chronic blood loss PVT (portal vein thrombosis) History of breast cancer Every 3 Months for 4 Occurrences starting 04/03/2023 until 04/02/2024 COMPREHENSIVE METABOLIC PANEL Lab STAT Anemia due to chronic blood loss PVT (portal vein thrombosis) History of breast cancer Expected: 10/02/2023 (Approximate), Expires: 04/03/2024 Scheduled Procedures Name Priority Associated Diagnoses Date/Ti [...] D LEVEL ONCE IN A LIFETIME-USE SMARTSET# [id number] Completed 08/30/2022, 11/26/2019, 12/28/2013 Influenza Vaccine (FLU [...] this encounter Medical Devices Implanted Type Area Ribbon Cleaner Device Identifier Shelf Expiration Date Model / Serial / Lot Surface Articular - [id number] Implanted:Qty: 1 on 09/15/2009 at OR [facility] [place] Right: Knee [employer] 04/19/2015 [id number] [id number] / / [id number] Clip Quick 2.8mm 230cm - [id number] Implanted:Qty: 1 on 07/25/2021 by Lisa Sullivan MD at ENDOSCOPY [facility] [employer] 09/17/2023 [id number] / [id number] documented as of this encounter Visit Diagnoses Diagnosis PVT (portal vein thrombosis)- Primary Portal vein thrombosis History of breast cancer Personal history of malignant neoplasm of breast Anemia due to chronic blood loss Iron deficiency anemia secondary to blood loss (chronic) Need for prophylactic vaccination and inoculation against influenza documented in this encounter Advance Directives Documents on File Type Date Recorded 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 No Care Teams Assorter Laundry Relationship Specialty Start Date End Date Mark Caal MD [address] [place] [address] PCP - General Family Medicine 07/21/18 documented as of this encounter
--- OUTSIDE RECORDS SUMMARY | 2023-05-15 23:12 | External Medical Summary | Summary of Care ---
Author Name Unknown Organization [facility] Address [address] [place] [address] Phone [phone] Care Team Providers Care Sack Sewer Machine Name Role Phone Mark Caal MD Primary Care Provider +1- [phone] Reason for Visit * Reason Comments Outpatient Testing Encounter Details Date Type Department Care Team (Late st Contact Info) Description 04/02/2023 11:30 AM EST Laboratory Laboratory [facility] [address] [place] [address] [facility] [address] [place] [address] Hyponatremia Allergies Active Allergy Reactions Criticality Noted [...] as of this encounter (statuses as of 04/02/2023) Medications Medication Sig Dispensed Refills Start Date [...] 10 days. 30 Capsule 0 03/29/2023 3 Active documented as of this encounter (statuses as of 04/02/2023) Active Problems Problem Noted Date Diagnosed Date [...] as of this encounter (statuses as of 04/02/2023) Resolved Problems Problem Noted Date Diagnosed Date [...] as of this encounter (statuses as of 04/02/2023) Immunizations Name Administration Dates Next Due COVID-19 mRNA, LNP-s, No Pre serve, 2-Dose Series ([employer]) 03/27/2021,08/16/2020,07/19/2020 Pneumococcal Conjugate Vacc, 13 Valent (Prevnar) [...] 05/22/2023 3:00 PM EST Office Visit Hepatology, [facility] [address] [place] [address] Aniyah Mora DO [address] [place] [address] 07/16/2023 2:30 PM EST Office Visit Rheumatology [place] [address] [facility] [place] [address] Bishop Quinones CRNP [address] [place] [address] 09/17/2023 2:40 PM EDT Office Visit [facility] [address] [place] [facility] [place] [address] Mark Caal MD [address] [facility] [place] [address] Pending Results Name Type Priority Associated Diagnoses Date /Time BASIC METABOLIC PANEL Lab Routine Hyponatremia 04/02/2023 10:48 AM EST Scheduled Procedures Name Priority Associated Diagnoses [...] D LEVEL ONCE IN A LIFETIME-USE SMARTSET# 01305 Completed 08/30/2022, 11/26/2019, 12/28/2013 Cologuard Discontinued Fecal Occult Blood Test Discontinued GARDASIL-HPV IMMUNIZATION SERIES Aged Out No longer eligible based on patient's age to complete this topic MENINGOCOCCAL (MENACTRA/MENVEO) Aged Out No longer eligible based on patient's age to complete this topic Sigmoidoscopy Discontinued documented as of this encounter Medical Devices Implanted Type Area Gas Substation Operator Device Identifier Shelf Expiration Date Model / Serial / Lot Surface Articular - [id number] Implanted:Qty: 1 on 09/15/2009 at OR [facility] [place] Right: Knee [employer] 04/19/2015 00-5994-03 0-20 / / [id number] Clip Quick 2.8mm 230cm - [id number] Implanted:Qty: 1 on 07/25/2021 by Lisa Sullivan MD at ENDOSCOPY [facility] Colon [employer] 09/17/2023 [id number]-202UR.A / / [id number] documented as of this encounter Visit Diagnoses Diagnosis Hyponatremia Hyposmolality and/or hyponatremia documented in this encounter Advance Directives Documents on File Type Date Recorded Patient Petroleum Production Engineer Expl anation Advance Directives and Living [...] the patient have Health Care Power of Analytic Programmer? No Care Teams Sack Sewer Machine Relationship Specialty Start Date End Date Mark Caal MD [address] [place] [address] PCP - General Family Medicine 07/21/18 documented as of this encounter
--- OUTSIDE RECORDS SUMMARY | 2023-05-15 23:12 | External Medical Summary | Summary of Care ---
Author Name Unknown Organization [facility] Address [address] [facility] [place] [address] Phone [phone] Care Team Providers Care Wool Hat Finisher Name Role Phone Mark Caal MD Primary Care Provider +1- [phone] Encounter Details Date Type Department Care Team (Late st Contact Info) Description 03/06/2023 Population Health External Data Unspecified Department Allergies Active Allergy Reactions Criticality Noted Date [...] as of this encounter (statuses as of 04/01/2023) Medications Medication Sig Dispensed Refills Start Date [...] as of this encounter (statuses as of 04/01/2023) Active Problems Problem Noted Date Diagnosed Date [...] as of this encounter (statuses as of 04/01/2023) Resolved Problems Problem Noted Date Diagnosed Date [...] as of this encounter (statuses as of 04/01/2023) Immunizations Name Administration Dates Next Due COVID-19 mRNA, LNP-s, No Pre serve, 2-Dose Series ([employer]) 03/27/2021,08/16/2020,07/19/2020 Pneumococcal Conjugate Vacc, 13 Valent (Prevnar) [...] 04/02/2023 11:00 AM EST Office Visit Hematology/Oncology [facility] [address] [facility] [place] [address] Della Zhong CRNP [address] [place] [address] 05/22/2023 3:00 PM EST Office Visit Hepatology, [facility] [address] [place] [place] [address] Aniyah Mora DO [address] [place] [address] 07/16/2023 2:30 PM EST Office Visit Rheumatology [place] [address] [facility] [place] [address] Bishop Quinones CRNP [address] [facility] [place] [address] 09/17/2023 2:40 PM EDT Office Visit [facility] [address] [facility] [address] Mark Caal MD [address], [place] [phone] Scheduled Procedures Name Priority Associated Diagnoses Date/Ti [...] D LEVEL ONCE IN A LIFETIME-USE SMARTSET# [id number] Completed 08/30/2022, 11/26/2019, 12/28/2013 Cologuard Discontinued Fecal Occult Blood Test Discontinued GARDASIL-HPV IMMUNIZATION SERIES Aged Out No longer eligible based on patient's age to complete this topic MENINGOCOCCAL (MENACTRA/MENVEO) Aged Out No longer eligible based on patient's age to complete this topic Sigmoidoscopy Discontinued documented as of this encounter Medical Devices Implanted Type Area Emergency Worker Device Identifier Shelf Expiration Date Model / Serial / Lot Surface Articular - [id number] Implanted:Q[place] 1 [place] [facility] [place] Knee [employer] 04/19/2015 00-5994-03 0-20 / / [id number] Clip Quick 2.8mm 230cm - [id number] Implanted:Qty: 1 on 07/25/2021 by Lisa Sullivan MD at [facility]OSCOPY [facility] Colon [employer] 09/17/2023 [id number]-202UR.A / / [id number] documented as of this encounter Advance Directives Documents on File Type Date Recorded Patient Spray Unit Feeder Expl anation Advance Directives and Living Will [...] patient have Health Care Power of Medical Microbiologist? No Care Teams Wool Hat Finisher Relationship Specialty Start Date End Date Mark Caal MD [address] [place] [address] PCP - General Family Medicine 07/21/18 documented as of this encounter
--- OUTSIDE RECORDS SUMMARY | 2023-05-15 23:12 | External Medical Summary | Summary of Care ---
Author Name Unknown Organization [facility] Address [address] [place] [address] Phone [phone] Care Team Providers Care Technology Instructor Name Role Phone Lila Ness MD Primary Care Provider +1- [phone] Encounter Details Date Type Department Care Team (Late st Contact Info) Description 03/28/2023 Refill [facility] [address] [place] [address] Lila Ness MD [address] [place] [address] Allergies Active Allergy Reactions Criticality Noted Date [...] as of this encounter (statuses as of 03/28/2023) Medications Medication Sig Dispensed Refills Start Date [...] for Constipation. 2838 mL 3 03/28/2023 Active Lactulose Encephalopathy 10 GM/15ML Oral Solution Take 45 mL by mouth daily as needed for Constipation. 0 3 Discontinu ed(Refill) documented as of this encounter (statuses as of 03/28/2023) Active Problems Problem Noted Date Diagnosed Date [...] as of this encounter (statuses as of 03/28/2023) Resolved Problems Problem Noted Date Diagnosed Date [...] as of this encounter (statuses as of 03/28/2023) Immunizations Name Administration Dates Next Due COVID-19 mRNA, LNP-s, No Pre serve, 2-Dose Series ([employer]) 03/27/2021,08/16/2020,07/19/2020 Pneumococcal Conjugate Vacc, 13 Valent (Prevnar) [...] encounter Miscellaneous Notes * Telephone Encounter - Lila Ness MD - 03/28/2023 3:10 PM ESTSigned Prescriptions: Disp Refills Lactulose Encephalopathy 10 GM/15ML Oral S*2838 mL3 Sig: Take 45mL by mouth daily as needed for Constipation.Authorizing Provider: LILA NESS documented in this encounter Plan of Treatment Upcoming Encounters Date Type Department Care Team (Late st Contact Info) Description 03/29/2023 1:00 PM EST Office Visit [place] [address] [facility] [phone] Lila Ness MD [address] [facility] [place] [id number] 04/02/2023 11:00 AM EST Office Visit Hematology/Oncology [facility] [address] [facility] [place], [place] [address] Della Zhong CRNP [address] [place] [address] 05/22/2023 3:00 PM EST Office Visit Hepatology, [facility] [address] [facility] [place] [address] Aniyah Mora DO [address] [facility] [place] [address] 07/16/2023 2:30 PM EST Office Visit Rheumatology [address] [place] [address] Bishop Quinones CRNP [address] [facility] [place] [address] 09/17/2023 2:40 PM EDT Office Visit Family [facility] [address] [facility] [phone] Lila Ness MD [address] [place] [address] Scheduled Procedures Name Priority Associated Diagnoses Date/Ti [...] D LEVEL ONCE IN A LIFETIME-USE SMARTSET# [id number] Completed 08/30/2022, 11/26/2019, 12/28/2013 Cologuard Discontinued Fecal Occult Blood Test Discontinued GARDASIL-HPV IMMUNIZATION SERIES Aged Out No longer eligible based on patient's age to complete this topic MENINGOCOCCAL (MENACTRA/MENVEO) Aged Out No longer eligible based on patient's age to complete this topic Sigmoidoscopy Discontinued documented as of this encounter Medical Devices Implanted Type Area Commercial Real Estate Broker Device Identifier Shelf Expiration Date Model / Serial / Lot Surface Articular - [id number] Implanted:Qty: 1 on 09/15/2009 at [place] [facility] [place] Right: Knee [employer] 04/19/2015 00-5994-03 0-20 / / [id number] Clip Quick 2.8mm 230cm - [id number] Implanted:Qty: 1 on 07/25/2021 by Lisa Sullivan MD at ENDOSCOPY [facility] Colon [employer] 09/17/2023 [id number]-202UR.A / / [id number] documented as of this encounter Advance Directives Documents on File Type Date Recorded Patient Ladies Locker Room Attendant Expl anation Advance Directives and Living [...] patient have Health Care Power of Precision Machining Instructor? No Care Teams Technology Instructor Relationship Specialty Start Date End Date Lila Ness MD [address] [place] [address] PCP - General Family Medicine 07/21/18 documented as of this encounter
--- OUTSIDE RECORDS SUMMARY | 2023-05-15 23:13 | External Medical Summary | Summary of Care ---
Author Name Unknown Organization [facility] Address [address] [place] [address] Phone [phone] Care Team Providers Care Cocoa Room Operator Name Role Phone Mark Caal MD Primary Care Provider +1- [phone] Encounter Details Date Type Department Care Team (Late st Contact Info) Description 03/27/2023 Senior StatisticianCustomer Care Specialist[address] [address] Henna Taylor, RN [address] [place] [address] Hepatic cirrhosis, unspecified hepatic cirrhosis [...] as of this encounter (statuses as of 03/27/2023) Medications Medication Sig Dispensed Refills Start Date [...] 1 Tablet before bedtime. 0 02/25/2023 Active Lactulose Encephalopathy 10 GM/15ML Oral Solution Take 45 mL by mouth daily as needed for Constipation. 0 Active Phospha 250 Neutral 155-852-130 MG Oral Tablet Take 1 Tablet by mouth in the morning and 1 Tablet before bedtime. 0 Active Spironolactone 100 MG Oral Tablet (Aldactone) Take 1 Tablet by mouth in the morning. In the morning.. 0 03/04/2023 3 Discontinu ed(Patient preference /discontin uation) Lactulose 10 GM/15ML Oral Solution (Constulose) Take 15 mL by mouth in the morning and 15 mL before bedtime. severe constipation. 946 mL 5 03/25/2023 3 Discontinu ed(Medicat ion/Dose Changed) documented as of this encounter (statuses as of 03/27/2023) Active Problems Problem Noted Date Diagnosed Date [...] as of this encounter (statuses as of 03/27/2023) Resolved Problems Problem Noted Date Diagnosed Date [...] as of this encounter (statuses as of 03/27/2023) Immunizations Name Administration Dates Next Due COVID-19 mRNA, LNP-s, No Pre serve, 2-Dose Series ([email or web address]) 03/27/2021,08/16/2020,07/19/2020 Pneumococcal Conjugate Vacc, 13 Valent (Prevnar) [...] this encounter Progress Notes * Henna Taylor, KAELA - 03/27/2023 11:24 AM EST Senior Statistician Progress Note: Date: 03/27/23 Assigned Patient Tier: 2 Connected with patient via phone. Verified patient name/. Advised patient that call is being recorded for quality and training purposes. Assessment: Pt. noted the following: patient denies SOB, cough, LE edema or angina Weight when discharged was 158 lbs Patient has a good appetite, confirms she is on a 1500cc fluid restriction Bowels are moving-discussed recommendation that she is to have 1-2 Bms daily, take Lactulose as needed Denies urinary complaints No complaints of pain or skin issues Lives with her in a 1 story home with ramp entry Patient independent with ambulation inside, uses a cane when outside Independent with ADL's, does the driving, patient manages her own medications Confirmed upcoming follow up appointments Did you receive an alert for an annual wellness visit? No Is this call for a hospital, longterm or rehab facility discharge to home? [facility] with poor appetite, weight loss, NA at 122, patient treated for acute hyponatemia, nephrology consult, GI consult for postprandial emesis, discharged home on 03/26/23 Medication Reconciliation: Medication Reconciliation completed: yes Review of Current goals: Discussed the following patient-centered CM goals with the patient during this discussion: -GI: Patient will have GI issues addressed -Status: On Track patient states her stomach is feeling better, has a fair appetite, bowels moving. -LIVER: Patient will successfully manage their liver cirrhosis -Status: On Track patient denies abdominal pain, bowels are moving, discussed taking Lactulose to have 1-2 BM's daily. -SAFETY: Prevent falls or injuries -Status: On Track independent with ambulation inside, uses a cane when outside, no report of falls. COPD Patient: YES Cough: denies, Breathing: Breathing at Baseline CHF Patient: YES Scale: YES, Current Weight: 158 lbs lbs, Reinforced fluid restriction and low sodium diet. CM Plan: Reviewed 3 Red Flags with patient. Advised to call CM with any of the following: Red Flag 1: increased SOB, productive cough, Red Flag 2: fever, chills, or Red Flag 3: increased weakness, abdominal pain, nausea Remote Patient Monitoring: [facility] Plan for Future Contacts: Plan to follow up within 1 week to check progress on the following goals/needs as above. Planned contacts from the following parties will occur this week: PCP office visit and Specialty Visit as additional contacts per workflow. Advancement/Closure Plan: Keep patient at current Tier with reassessment per workflow. Patient provided CM contact information and encouraged to call with any changes in condition. SNP Member? No PCP Notified of enrollment in CM/HM program: Yes Is Provider in agreement with POC? Yes Henna M Bannach, RN Outpatient Case Management documented in this encounter Plan of Treatment Upcoming Encounters Date Type Department Care Team (Late st Contact Info) Description 03/29/2023 1:00 PM EST Office Visit [facility] [address] [facility] [address] Mark Caal MD [address] [facility] [address] 04/02/2023 11:00 AM EST Office Visit Hematology/Oncology [facility] [address] [facility] [place] [address] Della Zhong CRNP [address] [facility] [place] [address] 05/22/2023 3:00 PM EST Office Visit Hepatology, [facility] [address] [facility] [place] [address] Aniyah Mora DO [address] [facility] [address] 07/16/2023 2:30 PM EST Office Visit Rheumatology [address] [place], [place] [address] Bishop Quinones CRNP [address] [place] [address], [place] [address] 09/17/2023 2:40 PM EDT Office Visit [facility] [address] [facility] [address] Mark Caal MD [address] [facility] [address] Scheduled Procedures Name Priority Associated Diagnoses Date/Ti [...] Completed 11/21/2018, 06/07/2017, 09/18/2011 Colonoscopy Discontinued 07/25/2021, 0312/2021, 08/18/2018, Additional history exists Colorectal Cancer Screening Discontinued VITAMIN D LEVEL ONCE IN A LIFETIME-USE SMARTSET# 03661 Completed 08/30/2022, 11/26/2019, 12/28/2013 Cologuard Discontinued Fecal Occult Blood Test Discontinued GARDASIL-HPV IMMUNIZATION SERIES Aged Out No longer eligible based on patient's age to complete this topic MENINGOCOCCAL (MENACTRA/MENVEO) Aged Out No longer eligible based on patient's age to complete this topic Sigmoidoscopy Discontinued documented as of this encounter Medical Devices Implanted Type Area Tongue Stitcher Device Identifier Shelf Expiration Date Model / Serial / Lot Surface Articular - [id number] [place]planted:Qty[place] 1 [place] 09/15/2009 [place] [facility] [place] Right: Knee [employer] 04/19/2015 00-5994-03 0-20 / / [id number] Clip Quick 2.8mm 230cm - [id number] Implanted:Qty: 1 on 07/25/2021 by Lisa Sullivan MD at [facility]COPY [facility] Colon [employer] 09/17/2023 HX-202UR.A / / [id number] documented as of this encounter Visit Diagnoses Diagnosis Hepatic cirrhosis, unspecified hepatic cirrhosis type, unspecified whether ascites present (HCC)- Primary documented in this encounter Advance Directives Documents on File Type Date Recorded Patient Direct Support Specialist Expl anation Advance Directives and Living [...] the patient have Health Care Power of Circular Knife Cutter Machine? No Care Teams Cocoa Room Operator Relationship Specialty Start Date End Date Mark Caal MD [address] [place] [address] PCP - General Family Medicine 07/21/18 documented as of this encounter
--- OUTSIDE RECORDS SUMMARY | 2023-05-15 23:13 | External Medical Summary | Summary of Care ---
Author Name Unknown Organization [facility] Address [address] [place] [address] Phone [phone] Care Team Providers Care Malt House Operator Name Role Phone Mark Caal MD Primary Care Provider +1- [phone] Encounter Details Date Type Department Care Team (Late st Contact Info) Description 03/25/[address] [facility] [address] [place] [address] Arjun Morrison MD [address] [place] [address] Allergies Active Allergy Reactions Criticality [...] as of this encounter (statuses as of 03/25/2023) Medications Medication Sig Dispensed Refills Start Date [...] as of this encounter (statuses as of 03/25/2023) Active Problems Problem Noted Date Diagnosed Date [...] as of this encounter (statuses as of 03/25/2023) Resolved Problems Problem Noted Date Diagnosed Date [...] as of this encounter (statuses as of 03/25/2023) Immunizations Name Administration Dates Next Due COVID-19 [...] Telephone Encounter - Arjun Morrison MD - 03/25/2023 2:02 PM EST Due to her known liver cirrhosis, her ammonia level is elevated which can cause confusion, mental status changes Would like to start lactulose to decrease ammonia level if pt agrees documented in this encounter Plan of Treatment Upcoming Encounters Date Type Department Care Team (Late st Contact Info) Description 04/02/2023 11:00 AM EST Office Visit Hematology/Oncology [facility] 200 [place] [address] Della Zhong CRNP [address] [facility] [place] [address] 05/22/2023 3:00 PM EST Office Visit Hepatology, [facility] [address] [place] [address] Aniyah Mora DO [address] [place] [address] 07/16/2023 2:30 PM EST Office Visit Rheumatology [facility] [address] [facility] [place], [place] [address] Bishop Quinones CRNP [address] [facility] [place] [address] 09/17/2023 2:40 PM EDT Office Visit [facility] [address] [place] [phone] Mark Caal MD [address] [place], [place] [phone] Scheduled Procedures Name Priority Associated Diagnoses Date/Ti [...] FOR COPD 09/08/2023 09/07/2022 HbA1c 09/19/2023 03/21/2023, 03/10/2022, 01/29/2022, Additional history exists DTaP,Tdap,and Td Vaccines [...] D LEVEL ONCE IN A LIFETIME-USE SMARTSET# [id number] Completed 08/30/2022, 11/26/2019, 12/28/2013 Cologuard Discontinued Fecal Occult Blood Test Discontinued GARDASIL-HPV IMMUNIZATION SERIES Aged Out No longer eligible based on patient's age to complete this topic MENINGOCOCCAL (MENACTRA/MENVEO) Aged Out No longer eligible based on patient's age to complete this topic Sigmoidoscopy Discontinued documented as of this encounter Medical Devices Implanted Type Area Cafeteria Team Leader Device Identifier Shelf Expiration Date Model / Serial / Lot Surface Articular - [id number] Implanted:Qty: 1 on 09/15/2009 [place] [facility] [place] Right: Knee [employer] 04/19/2015 00-5994-03 0-20 / / [id number] Clip Quick 2.8mm 230cm - [id number] Implanted:Qty: 1 on 07/25/2021 by Lisa Sullivan MD at ENDOSCOPY [facility] Colon [employer] 09/17/2023 HX-202UR.A / / [id number] documented as of this encounter Advance Directives Documents on File Type Date Recorded Patient Infant Toddler Lead Teacher Expl anation Advance Directives and Living Will [...] the patient have Health Care Power of Tool Shaper Setup Operator? No Care Teams Malt House Operator Relationship Specialty Start Date End Date Mark Caal MD [address] [place] [address] PCP - General Family Medicine 07/21/18 documented as of this encounter
--- OUTSIDE RECORDS SUMMARY | 2023-05-15 23:13 | External Medical Summary | Summary of Care ---
Author Name Unknown Organization [facility] Address [address] [place] [address] Phone [phone] Care Team Providers Care Tube Backer Name Role Phone Mark Caal MD Primary Care Provider +1- [phone] Reason for Visit * Reason Onset Date Comments Order Request 03/22/2023 Encounter Details Date Type Department Care Team ([facility] st Contact Info) Description 03/22/2023 Telephone [facility] [address] [place] [address] Mark Caal MD [address] [place] [address] Order Request Allergies Active Allergy [...] mRNA, LNP-s, No Pre serve, 2-Dose Series (Solio) 03/27/2021,08/16/2020,07/19/2020 Pneumococcal Conjugate Vacc, 13 Valent (Prevnar) [...] encounter Miscellaneous Notes * Telephone Encounter - Veronica De La O MED ASSIST - 03/25/2023 9:39 AM EST FYI * Telephone Encounter - Veronica De La O MED ASSIST - 03/25/2023 9:38 AM EST Spoke with pt Liang. Liang notified that pt went to ED when recommended and has been admitted. * Telephone Encounter - Arjun Morrison MD [...] wish to have their order completed at? [facility] in [place] Fax Number, if applicable: na Call Back Number: [phone]-Pt is requesting call when order sent to [...] Office Visit Hematology/Oncology [place] [facility] [address] [facility] [place] [address] Della Zhong CRNP [address] [place] [address] 05/22/2023 3:00 PM EST Office Visit Hepatology, [facility] [address] [place] [address] Morgan Aniyah De La CruzDO [address] [place] [address] 07/16/2023 2:30 PM EST Office Visit Rheumatology [place] [id number] [employer] [place], [place] [address] Bishop Quinones CRNP [facility] [employer] [place] [address] 09/17/2023 2:40 PM EDT Office Visit [facility] [address] [place] [phone] Mark Caal MD [address] [place] [address] Scheduled Procedures Name Priority Associated Diagnoses Date/Ti [...] D LEVEL ONCE IN A LIFETIME-USE SMARTSET# [id number] Completed 08/30/2022, 11/26/2019, 12/28/2013 Cologuard Discontinued Fecal Occult Blood Test Discontinued GARDASIL-HPV IMMUNIZATION SERIES Aged Out No longer eligible based on patient's age to complete this topic MENINGOCOCCAL (MENACTRA/MENVEO) Aged Out No longer eligible based on patient's age to complete this topic Sigmoidoscopy Discontinued documented as of this encounter Medical Devices Implanted Type Area Fuel Cell Systems Engineer Device Identifier Shelf Expiration Date Model / Serial / Lot Surface Articular - [id number] Implanted:Qty: 1 on 09/15/2009 at OR [facility] Right: Knee [employer] 04/19/2015 00-5994-03 0-20 / / [id number] Clip Quick 2.8mm 230cm - [id number] Implanted:Qty: 1 on 07/25/2021 by Lisa Sullivan MD at [facility]COPY [facility] Colon [employer] 09/17/2023 HX-202UR.A / / [id number] documented as of this encounter Advance Directives Documents on File Type Date Recorded Patient Gifts Officer Expl anation Advance Directives and Living Will [...] the patient have Health Care Power of Bellperson? No Care Teams Tube Backer Relationship Specialty Start Date End Date Mark Caal MD [address] [place] [facility] [place] [address] PCP - General Family Medicine 07/21/18 documented as of this encounter
--- OUTSIDE RECORDS SUMMARY | 2023-05-15 23:13 | External Medical Summary | Summary of Care ---
Author Name Unknown Organization [facility] Address [address] [place] [address] Phone [phone] Care Team Providers Care Entry Examiner Name Role Phone Mark Caal MD Primary Care Provider +1- [phone] Encounter Details Date Type Department Care Team (Late st Contact Info) Description 03/25/2023 Telephone [facility] [address] [place] [address] Arjun Morrison MD [address] [place] [address] Allergies Active Allergy Reactions Criticality [...] Tablet before bedtime. 0 02/25/2023 Active Lactulose 10 GM/15ML Oral Solution (Constulose) Take 15 mL by mouth in the morning and 15 mL before bedtime. severe constipation. 946 mL 5 03/25/2023 Active documented as of this encounter (statuses [...] mRNA, LNP-s, No Pre serve, 2-Dose Series (Nimaya) 03/27/2021,08/16/2020,07/19/2020 Pneumococcal Conjugate Vacc, 13 Valent (Prevnar) [...] encounter Miscellaneous Notes * Addendum Note - Arjun Morrison MD - 03/25/2023 3:48 PM ESTAddended by: ARJUN MORRISON on: 03/25/2023 03:48 PM Modules accepted: Orders * Telephone Encounter - Arjun Morrison MD - 03/25/2023 3:48 PM EST Sent out to take lactulose 15mL twice daily * Telephone Encounter - Blanche Matta LPN - 03/25/2023 3:44 PM EST Patient aware and verbalized understanding Agreeable to lactulose * Telephone Encounter - Arjun Morrison MD [...] 04/02/2023 11:00 AM EST Office Visit Hematology/Oncology [facility] [address] [facility] [place], [place] [address] Della Zhong CRNP [address] [facility] [place] [address] 05/22/2023 3:00 PM EST Office Visit Hepatology, [facility] [address] [place] [address] Aniyah Mora DO [address] [place] [address] 07/16/2023 2:30 PM EST Office Visit Rheumatology [facility] [address] [facility] [place] [address] Bishop Quinones CRNP [address] [facility] [place], [place] [address] 09/17/2023 2:40 PM EDT Office Visit [facility] [address] [place] [facility] [place] [id number] Mark Caal MD [address] [place] [address] Scheduled Procedures Name Priority Associated [...] D LEVEL ONCE IN A LIFETIME-USE SMARTSET# [id number] Completed 08/30/2022, 11/26/2019, 12/28/2013 Cologuard Discontinued Fecal Occult Blood Test Discontinued GARDASIL-HPV IMMUNIZATION SERIES Aged Out No longer eligible based on patient's age to complete this topic MENINGOCOCCAL (MENACTRA/MENVEO) Aged Out No longer eligible based on patient's age to complete this topic Sigmoidoscopy Discontinued documented as of this encounter Medical Devices Implanted Type Area Buffing And Sueding Machine Operator Device Identifier Shelf Expiration Date Model / Serial / Lot Surface Articular - [id number] Implanted:Qty: 1 on 09/15/2009 at OR [facility] Right: Knee [employer] 04/19/2015 00-5994-03 0-20 / / [id number] Clip Quick 2.8mm 230cm - [id number] Implanted:Qty: 1 on 07/25/2021 by Lisa Sullivan MD at ENDOSCOPY [facility] Colon [employer] 09/17/2023 HX-202UR.A / / [id number] documented as of this encounter Advance Directives Documents on File Type Date Recorded Patient Blast Furnace Supervisor Expl anation Advance Directives and Living [...] the patient have Health Care Power of Loan Interviewer? No Care Teams Entry Examiner Relationship Specialty Start Date End Date Mark Caal MD [address] [place] [address] PCP - General Family Medicine 07/21/18 documented as of this encounter
--- OUTSIDE RECORDS SUMMARY | 2023-05-15 23:13 | External Medical Summary | Summary of Care ---
Author Name Unknown Organization [facility] Address [address] [place] [address] Phone [phone] Care Team Providers Care Natural Resources Professor Name Role Phone Mark Caal MD Primary Care Provider +1- [phone] Encounter Details Date Type Department Care Team (Late st Contact Info) Description 03/25/[address] [facility] [address] [place] [address] Arjun Morrison MD [address] [place] [address] Allergies Active Allergy Reactions Criticality [...] mRNA, LNP-s, No Pre serve, 2-Dose Series (Sunrise) 03/27/2021,08/16/2020,07/19/2020 Pneumococcal Conjugate Vacc, 13 Valent (Prevnar) [...] encounter Miscellaneous Notes * Telephone Encounter - Blanche Matta LPN - 03/25/2023 3:49 PM EST Pt was made aware med was to be sent * Addendum Note - Arjun Morrison MD [...] 04/02/2023 11:00 AM EST Office Visit Hematology/Oncology [facility] [address] [facility] [place], [place] [address] Della Zhong CRNP [address] [place] [address] 05/22/2023 3:00 PM EST Office Visit Hepatology, [facility] [address] [facility] [place] [address] Aniyah Mora DO [address] [place] [address] 07/16/2023 2:30 PM EST Office Visit Rheumatology [place] [address] [facility] [place] [address] Bishop Quinones CRNP [address] [place] [address] 09/17/2023 2:40 PM EDT Office [facility] [address] [facility] [id number] Mark Caal MD [address] [place] [address] Scheduled Procedures Name Priority Associated [...] D LEVEL ONCE IN A LIFETIME-USE SMARTSET# [id number] Completed 08/30/2022, 11/26/2019, 12/28/2013 Cologuard Discontinued Fecal Occult Blood Test Discontinued GARDASIL-HPV IMMUNIZATION SERIES Aged Out No longer eligible based on patient's age to complete this topic MENINGOCOCCAL (MENACTRA/MENVEO) Aged Out No longer eligible based on patient's age to complete this topic Sigmoidoscopy Discontinued documented as of this encounter Medical Devices Implanted Type Area Pastry Artist Device Identifier Shelf Expiration Date Model / Serial / Lot Surface Articular - [id number] Implanted:Qty: 1 on 09/15/2009 at OR [facility] Right: Knee [employer] 04/19/2015 00-5994-03 0-20 / / [id number] Clip Quick 2.8mm 230cm - [id number] Implanted:Qty: 1 on 07/25/2021 by Lisa Sullivan MD at [facility]COPY [facility] Colon [employer] 09/17/2023 HX-202UR.A / / [id number] documented as of this encounter Advance Directives Documents on File Type Date Recorded Patient Patent Counsel Expl anation Advance Directives and Living Will [...] the patient have Health Care Power of Stencil Inspector? No Care Teams Natural Resources Professor Relationship Specialty Start Date End Date Mark Caal MD [address] [place] [address] PCP - General Family Medicine 07/21/18 documented as of this encounter
--- OUTSIDE RECORDS SUMMARY | 2023-05-15 23:13 | External Medical Summary | Summary of Care ---
Author Name Unknown Organization [facility] Address [address] [place] [address] Phone [phone] Care Team Providers Care Case Mgr Name Role Phone Mark Caal MD Primary Care Provider +1- [phone] Encounter Details Date Type Department Care Team (Late st Contact Info) Description 03/25/2023 Telephone [facility] [address] [place] [address] Arjun Morrison MD [address] [place] [address] Allergies Active Allergy Reactions Criticality [...] 04/02/2023 11:00 AM EST Office Visit Hematology/Oncology [facility] [place] [address] [facility] [place] [address] Della Zhong CRNP [address] [place] [address] [place] [address] 05/22/2023 3:00 PM EST Office Visit Hepatology, [facility] [address] [place] [address] Aniyah Mora DO [address] [place] [address] 07/16/2023 2:30 PM EST Office Visit Rheumatology [facility] [address] [facility] [place], [place] [address] Bishop Quinones CRNP [address] [employer] [place] [address] 09/17/2023 2:40 PM EDT Office Visit [facility] [address] [place] [phone] Mark Caal MD [address] [place] [address] Scheduled Procedures Name Priority Associated Diagnoses Date/Ti [...] D LEVEL ONCE IN A LIFETIME-USE SMARTSET# [id number] Completed 08/30/2022, 11/26/2019, 12/28/2013 Cologuard Discontinued Fecal Occult Blood Test Discontinued GARDASIL-HPV IMMUNIZATION SERIES Aged Out No longer eligible based on patient's age to complete this topic MENINGOCOCCAL (MENACTRA/MENVEO) Aged Out No longer eligible based on patient's age to complete this topic Sigmoidoscopy Discontinued documented as of this encounter Medical Devices Implanted Type Area Eligibility Manager Device Identifier Shelf Expiration Date Model / Serial / Lot Surface Articular - [id number] Implanted:Qty: 1 on 09/15/2009 at OR [facility] Right: Knee [employer] 04/19/2015 00-5994-03 0- [id number] Clip Quick 2.8mm 230cm - [id number] Implanted:Qty: 1 on 07/25/2021 by Lisa Sullivan MD at [facility]COPY [facility] Colon [employer] 09/17/2023 HX-202UR.A / / [id number] documented as of this encounter Advance Directives Documents on File Type Date Recorded Patient Loan Examiner Expl anation Advance Directives and Living Will [...] the patient have Health Care Power of Nurse Emergency Room? No Care Teams Case Mgr Relationship Specialty Start Date End Date Mark Caal MD [address] [place] [facility] [place] [place] [address] PCP - General Family Medicine 07/21/18 documented as of this encounter
[2023-05-16] MEDS: PANTOprazole 40 MG TAB PO SCH (05:53)
[2023-05-16 06:09] LABS: Albumin Globulin Ratio 0.6 (0.9-2); Albumin Level 2.2 gm/dl (3.4-5.0); BUN Creatinine Ratio 23.3 (10-20); Bilirubin,Total 2.3 mg/dl (0.2-1.0); Calcium 8.2 mg/dl (8.6-10.3); Creatinine Clr Calc Pharmacy 47.3 ml/min; Est GFR (African American) 54.9 ml/min; Est GFR (Non-African American) 47.3 ml/min; Globulin 3.4 gm/dl (2.5-4.0); Magnesium 1.6 mg/dl (1.7-2.4); Phosphorus 3.4 mg/dl (2.5-4.9); Potassium 4.2 mmol/L (3.5-5.1); Total Protein 5.6 gm/dl (6.0-8.3)
[2023-05-16 06:13] LABS: Basophils # (auto) 0.02 K/uL (0.00-0.20); Basophils % (auto) 0.3 %; Eosinophils # (auto) 0.13 K/uL (0.00-0.50); Hematocrit (blood only) 26.6 % (37.0-47.0); Hemoglobin 8.7 g/dl (12.0-16.0); Immature Granulocytes # (auto) 0.03 K/uL (0.01-0.20); Immature Granulocytes % (auto) 0.5 %; Lymphocytes # (auto) 1.14 K/uL (1.20-3.40); Lymphocytes % (auto) 17.6 %; Mean Corpuscular Hemoglobin 29.7 pg (25.0-34.0); Mean Corpuscular Hgb Conc 32.7 g/dL (32.0-36.0); Mean Corpuscular Volume 90.8 fL (80.0-100.0); Mean Platelet Volume 9.5 fL (9.4-12.4); Monocytes # (auto) 1.38 K/uL (0.11-0.59); Monocytes % (auto) 21.3 %; Neutrophils # (auto) 3.79 K/uL (1.40-6.50); Neutrophils % (auto) 58.3 %; Platelet Count 115 K/uL (130-400); RDW Coefficient of Variation 18.6 % (11.5-14.5); RDW Standard Deviation 60.4 fL (36.4-46.3); Red Blood Count 2.93 M/uL (4.20-5.40); White Blood Count 6.49 K/ul (4.8-10.8)
[2023-05-16] MEDS: MONTELUKAST SODIUM 10 MG TABLET PO SCH (08:13)
[2023-05-16] MEDS: INSULIN ASPART PER UNIT CHARGE SC SCH ×4 (08:13→21:03)
[2023-05-16] MEDS: LACTOBACILLUS ACIDOPHILUS 1 GM PACK PO SCH (08:14)
[2023-05-16] MEDS: CALCIUM 600MG + VIT D 400 IU TAB PO SCH ×2 (08:14→21:04)
[2023-05-16] MEDS: POT PHOSPHATE MONOBASIC W/ SOD TAB PO SCH ×2 (08:14→21:05)
[2023-05-16] MEDS: FLUTICASONE FUROATE 200MCG 14 PUFFS/INHALER INH SCH (08:15)
[2023-05-16] MEDS: FUROSEMIDE 40 MG/4 ML VIAL IV SCH (08:15)
[2023-05-16] MEDS: ARTIFICIAL TEARS OP SCH (08:15)
[2023-05-16] MEDS: POTASSIUM CHLORIDE CRTAB 20 MEQ TABCR PO SCH (08:20)
[2023-05-16] MEDS: MAGNESIUM SULFATE / D5W 1 GM/100 ML BAG IV SCH ×2 (08:28→10:06)
--- NOTE | 2023-05-16 10:08 | Cardiology Consultation ---
Date of Consultation May 16, 2023 Assessment & Plan (1) Anasarca: (2) Liver cirrhosis secondary to ADRIAN: (3) Grade I diastolic dysfunction: (4) Chronic hyponatremia: Plan Complex 73 year old female admitted with marked volume overload, anasarca secondary to cirrhosis. Refer for limited resting echocardiography to assess for significant pericardial effusion given low QRS voltage, electrical alternans on admission EKG, sinus tachycardia Recommend IV furosemide infusion at 5 mg/hr along with pulse doses of 60 mg IV BID Add spironolactone 25 mg/day to start Check electrolytes twice a day, maintaining normokalemia and normomagnesemia. Fluid restrict to less than 1,500 mL/day Further recommendations pending the above, evaluation by Dr. Abdullahi, and patient's ongoing hospitalization Supervising Physician Co-Signing Physician Notes 73-year-old female present to the emergency department with progressive edema and shortness of breath. Denies chest pain or heaviness. Telemetry reveals sinus rhythm at approximately 100 bpm. No orthopnea or PND. PE: VSS. Borderline tachycardic. General: NAD, awake alert and orient x 3. Heart: Regular rhythm, borderline tachycardic, no murmur. Lungs: Clear bilateral, no rales, rhonchi, wheeze. Abd: + Distention with pitting edema. ext: 3+ bilateral lower extremity pitting edema. A/P: Agree with PA-C history, physical exam, assessment and plan. 73-year-old female with admitted with anasarca secondary to cirrhosis. Echocardiogram reveals hyperdynamic left ventricular function without significant valvular pathology. There is no significant pericardial effusion. Continue intravenous furosemide and diuresis as per nephrology. Consider wrist adding Aldactone, however, will defer to nephrology and gastroenterology. No further inpatient cardiac testing recommended at this time. Please call with additional concerns/questions. History of Present Illness Reason for Consultation: Acute decompensated diastolic heart failure Requesting Physician: Dr. Melvin Attending Physician: Dr. Guadarrama History of Present Illness History includes NAFLD cirrhosis of the liver with secondary esophageal varices, chronic thrombocytopenia, breast cancer status post surgery and radiation, on anastrozole, moderate persistent asthma, COPD, type 2 diabetes mellitus, anemia of chronic disease, gastroesophageal reflux. Patient hospitalized at [facility] in March 2023 with acute on chronic hyponatremia treated with IV fluids Patient presented to [facility] on May 15, 2023 with acute on chronic shortness of breath, progressive abdominal bloating/distention, lower extremity peripheral edema, and weight gain. EKG revealed sinus tachycardia at 105 bpm with low voltage QRS and a possible old anterior infarct. B natruretic peptide 103 pg/mL. Chest x-ray interpreted by the radiologist revealed pulmonary vascular congestion without overt pulmonary edema; marked elevation of the right hemidiaphragm noted. In the ER patient received 40 mg of IV furosemide, magnesium supplementation, and was prescribed furosemide 60 mg twice per day on admission. Patient notes no improvement in presenting symptoms at the time of my evaluation. She continues to feel short of breath, nauseous with dry heaving, and has marked volume overload consistent with anasarca on examination. February 28, 2023 resting echocardiography performed at [facility] and interpreted by Dr. Harris revealed normal to hyperdynamic LV systolic function, EF 65 to 70%, with normal LV wall motion, mild concentric LVH, grade 1 diastolic dysfunction. Doppler findings did not suggest pulmonary hypertension. Normal IVC diameter respiratory variation observed suggesting normal central venous pressure. Allergies Allergy/AdvReac Type Severity Reaction Status Date / Time albuterol Allergy Severe HIVES, Verified 05/15/23 17:57 DIFFICULTY WALKING, SHAKINESS, STUTTERING azithromycin Allergy Severe SHORT OF Verified 05/15/23 17:57 BREATH, PALPITATIONS tramadol Allergy Severe SEE COMMENT Verified 05/15/23 17:57 ibuprofen Allergy Intermediate Hives Verified 05/15/23 17:57 cephalexin AdvReac Severe "HEART Verified 05/15/23 17:57 PALPATIONS" morphine AdvReac Unknown PT STATES Verified 05/15/23 17:57 "BUILT UP A TOLERANCE TO MED, DOESN'T WORK". OPOIDS Allergy Severe DECREASE Uncoded 05/15/23 17:57 RESPIRATIONS--RECEIVED NARCAN Home Medications Medication Instructions Recorded Confirmed Type calcium carbonate 600 mg-vitamin 1 cap PO BID 02/11/18 05/15/23 History D3 10 mcg (400 unit) capsule latanoprost 0.005 % eye drops 1 drp OPB HS 04/11/18 05/15/23 History montelukast 10 mg tablet 10 mg PO QAM 04/11/18 05/15/23 History pantoprazole 40 mg tablet,delayed 40 mg PO DAILYBB 04/11/18 05/15/23 History release levalbuterol tartrate 45 1 puff inhalation Q4H PRN Wheezing 11/11/18 05/15/23 History mcg/actuation aerosol inhaler milk thistle seed extract 175 mg 175 mg PO QAM 01/21/19 05/15/23 History tablet acetaminophen 650 mg 650 mg PO Q8H PRN Pain 07/14/20 05/15/23 History tablet,extended release (Tylenol 8 Hour) blood sugar diagnostic (VoAPPsTouch #50 ea 07/15/20 Rx Verio test strips) lancets 30 gauge (OneTouch Delica #100 ea 07/15/20 Rx Lancets) cyclosporine 0.05 % eye drops in a 1 drp ophthalmic (eye) QAM 12/22/20 05/15/23 History dropperette (Restasis) cinnamon bark 500 mg capsule 1,000 mg PO TID 01/20/22 05/15/23 History (Cinnamon) fluticasone propionate 110 2 puff inhalation AMPM 01/20/22 05/15/23 History mcg/actuation HFA aerosol inhaler garlic 100 mg tablet 1,000 mg PO BID 01/20/22 05/15/23 History guaifenesin 100 mg/5 mL oral 200 mg (10 mL) PO Q6H PRN cough 01/22/22 05/15/23 Rx liquid (Cough Syrup) #473 mL sodium di- and 1 tab PO BID #60 tabs 03/26/23 05/15/23 Rx monophosphate-potassium phos monobasic 250 mg tablet (Phospha Neutral) Lactobacillus rhamnosus GG 10 1 cap PO DAILY 05/15/23 05/15/23 History billion cell capsule (Culturelle) docusate sodium 100 mg capsule 100 mg PO TID PRN Constipation 05/15/23 05/15/23 History iron,carbonyl 65 mg-vitamin C 125 1 tab PO HS 05/15/23 05/15/23 History mg tablet,delayed release (Vitron-C) lactulose 10 gram/15 mL (15 mL) 45 g PO DAILY PRN constipation 05/15/23 05/15/23 History oral solution levalbuterol HCl 1.25 mg/3 mL 1.25 mg inhalation Q4H PRN Wheezing 05/15/23 05/15/23 History solution for nebulization potassium chloride 20 mEq 40 meq PO QAM 05/15/23 05/15/23 History tablet,extended release psyllium husk 6 gram oral powder 6 g PO TID PRN Constipation 05/15/23 05/15/23 History packet torsemide 100 mg tablet 100 mg PO QAM 05/15/23 05/15/23 History Patient History Medical History Paroxysmal atrial tachycardia Abnormal chest x-ray Bronchitis Cirrhosis Incarcerated hernia of abdominal cavity Osteoarthritis Fibromyalgia Cirrhosis of liver not due to alcohol Thyroid goiter just monitoring for now Glaucoma bilt Migraine Sinus arrhythmia Chronic obstructive pulmonary disease Esophageal varices hx of banding Diverticulitis Malignant neoplasm of left breast, stage 1, estrogen receptor positive (09/26/17) "Status post bilateral breast reduction in 1998 Status post abnormal left breast mammogram Status post ultrasound core needle biopsy September 26, 2017 Infiltrating carcinoma, grade 2 Estrogen receptor positive, progesterone receptor positive, 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 Status post needle localization lumpectomy and sentinel lymph node biopsy October 16, 2017 Stage pT1c pN0 M0 Status post completion of radiation therapy January 01, 2018. She received 5130 cGy utilizing hypo-fractionation." On 11/19/17 11:17 Blossom Brandt wrote "Status post bilateral breast reduction in 1998 Status post abnormal left breast mammogram Status post ultrasound core needle biopsy September 26, 2017 Infiltrating carcinoma, grade 2 Estrogen receptor positive, progesterone receptor positive, 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 Status post needle localization lumpectomy and sentinel lymph node biopsy October 16, 2017 Stage pT1c pN0 M0 Status post completion of radiation therapy January 01, 2018. She received 5130 centigrade utilizing hypo-fractionation. Rectal vaginal fistula Asthma HTN (hypertension) CAD (coronary artery disease) Surgical History Status post left foot surgery planter fascitis Status post trigger finger release right thumb History of surgical removal of ganglion cyst right wrist History of repair of rectocele History of incisional hernia repair x8 History of ileostomy 1998 History of closure of ileostomy 1998---1 month after created History of bilateral salpingo-oophorectomy (BSO) History of colonoscopy History of appendectomy History of esophagogastroduodenoscopy (EGD) History of needle biopsy left breast---malignant History of lumpectomy of left breast with lymph node removal History of tonsillectomy and adenoidectomy Status post correction of deviated nasal septum History of ear surgery right ear "doctor broke my ear drum to drain the fluid" History of bilateral cataract extraction History of total right knee replacement x2 H/O arthroscopy of right knee History of cholecystectomy History of colostomy reversal 1997--8 weeks after colectomy History of partial colectomy 1997--diverticuli pocket ruptured @ [facility] H/O bilateral breast reduction surgery H/O: hysterectomy H/O tooth extraction all teeth removed Family History Sister Family history of diabetes mellitus Grandfather (Paternal) Family history of diabetes mellitus Family hx of colon cancer Grandfather (Maternal) Family history of diabetes mellitus Family/Other Family history of diabetes mellitus 2 cousins Other No family history of adverse response to anesthesia Social History Smoking Status: Never smoker Second Hand Exposure: No; Do You Dip or Chew Tobacco: No; Tobacco Cessation Education Requested by Patient: No Hx Alcohol Use: No Hx Substance Use: No Preferred Language: Monegasque Communication Ability: Effective Airplane Woodworker Required: No Beliefs That Will Affect Care: None marital status: Current Living Situation: Spouse current occupational status: retired How many Children do You have: 1 Other Information That Helps Us Care for You: No Feels Safe at Home: Yes Safety Concerns: Feels Safe At This Time Assistive Devices: Cane and Nebulizer Review of Systems Review of Systems: Complete Review of Systems is as stated above, negative, or noncontributory. Physical Exam Physical Exam: General: A&Ox3. HENT: Normocephalic. Atraumatic. Eyes: PER. Conjunctiva pink, sclera clear. Neck: + JVD. Heart: Distant heart sounds, regular at 90 bpm. No murmur appreciated. No rub appreciated. Lungs: Absent breath sounds at the right base. No rales. No wheeze. Abdomen: +BS. Somewhat firm and distended. No organomegaly. Extremities: 3+ edema in both lower extremities. No clubbing. No cyanosis. Limited neurological examination is without focal deficits. Pulses: radial=2/4, posterior tibial=0/4. Results & Data Vital Signs (Past 12 Hours) Vital Signs Temp Pulse Pulse Resp BP Pulse Ox O2 Del Method 05/16/23 08:00 Room Air 05/16/23 07:21 36.7 C 105 H 18 115/80 97 Room Air 05/16/23 03:00 36.7 C 105 H 19 96/71 L 96 Room Air 05/15/23 23:48 106 H 05/15/23 23:00 Room Air 05/15/23 23:00 36.6 C 106 H 18 103/74 96 Room Air Laboratory Results Cardiac Enzymes 05/15/23 05/16/23 Range/Units 16:40 05:20 AST 48 H 41 H (13-39) U/L Troponin I High Sens 13.8 (0-14) pg/ml B-Natriuretic Peptide 103 H (0-100) pg/ml Coagulation 05/15/23 Range/Units 16:40 PT 13.0 H (9.0-12.0) Seconds APTT 24 (21-31) Seconds B-Natriuretic Peptide 103 H (0-100) pg/ml CBC 05/15/23 05/16/23 Range/Units 16:40 05:20 WBC 8.62 6.49 (4.8-10.8) K/ul RBC 3.13 L 2.93 L (4.20-5.40) M/uL Hgb 9.4 L 8.7 L (12.0-16.0) g/dl Hct 28.2 L 26.6 L (37.0-47.0) % Plt Count 134 115 L (130-400) K/uL Neut # (Auto) 5.54 3.79 (1.40-6.50) K/uL Lymph # (Auto) 1.09 L 1.14 L (1.20-3.40) K/uL Mcclain # (Auto) 1.86 H 1.38 H (0.11-0.59) K/uL Eos # (Auto) 0.07 0.13 (0.00-0.50) K/uL Baso # (Auto) 0.02 0.02 (0.00-0.20) K/uL Comprehensive Metabolic Panel 05/15/23 05/16/23 Range/Units 16:40 05:20 Sodium 133 L 133 L (136-145) mmol/L Potassium 5.0 4.2 (3.5-5.1) mmol/L Chloride 98 99 (98-107) mmol/L Carbon Dioxide 28 28 (21-32) mmol/L BUN 25 H 27 H (6-23) mg/dl Creatinine 1.28 H 1.16 (0.6-1.2) mg/dl Glucose 101 H 88 (70-99(Fasting)) mg/dl Calcium 8.4 L 8.2 L (8.6-10.3) mg/dl AST 48 H 41 H (13-39) U/L ALT 22 20 (7-52) U/L Alkaline Phosphatase 176 H 152 H (34-104) U/L Total Protein 6.3 5.6 L (6.0-8.3) gm/dl Albumin 2.5 L 2.2 L (3.4-5.0) gm/dl Intake and Output 05/15/23 05/16/23 05/16/23 22:59 06:59 14:59 Intake Total 100 / 200 100 / 200 81.667 / 81.667 Output Total 275 / 600 325 / 600 Balance -175 / -400 -225 / -400 81.667 / 81.667 Intake: IV 100 / 100 81.667 / 81.667 Magnesium Sulfate / D5w 1 gm In 100 / 100 81.667 / 81.667 100 ml @ 50 mls/hr IV Q2H [facility] Rx#:[id number] Oral 100 / 100 Output: Urine Amount (Catheter) 275 / 600 325 / 600 Michaels/Indwelling 275 / 600 325 / 600 Other: Weight 99.79 kg 96.842 kg Weight Measurement Method Built in [facility] Built in [facility] Diagnostic Findings Telemetry: Sinus/sinus tachycardia throughout
--- NOTE | 2023-05-16 11:05 | Electrocardiogram Report ---
Test Reason : Blood Pressure : / mmHG Vent. Rate : 105 BPM Atrial Rate : 100 BPM P-R Int : 000 ms QRS Dur : 072 ms QT Int : 342 ms P-R-T Axes : 000 012 035 degrees QTc Int : 452 ms Sinus tachycardia Low voltage QRS Abnormal ECG Confirmed by Shiv Olivarez ([id number]) on 05/16/2023 11:05:29 AM Referred By: REFERRED SELF Confirmed By:Kendell Olivarez
[2023-05-16] MEDS ORDERED: DEXTROSE 50% 50 ML SYRINGE IV PRN (12:30)
[2023-05-16] MEDS ORDERED: GLUCAGON FOR INJ 1 MG VIAL IM PRN (12:30)
[2023-05-16] MEDS ORDERED: GLUCOSE 40% GEL 15 GM TUBE PO PRN (12:30)
[2023-05-16] MEDS ORDERED: GLUCOSE 10 TAB/TUBE PO PRN (12:30)
[2023-05-16] MEDS ORDERED: CARBOHYDRATES FOR HYPOGLYCEMIA PO PRN (12:30)
--- NOTE | 2023-05-16 12:39 | Nephrology Consultation ---
Date of Consultation May 16, 2023 Assessment & Plan (1) Acute hyponatremia: Patient with hyponatremia due to hypervolemia. She has decompensated cirrhosis with ascites and massive edema. Will continue aggressive diuresis and fluid restriction of 1.2 L daily. (2) DOLORES (acute kidney injury): Patient with acute kidney injury with admission creatinine of 1.3 from a baseline of 0.7. This is due to cardiorenal syndrome. Will continue diuretics and monitor renal function with daily BMP. Will avoid nephrotoxins such as contrast. (3) Acute diastolic (congestive) heart failure: Patient with over 20 pound weight gain in the past 1 month. Will increase her IV Lasix to 100 mg twice daily with goal of making her net negative at least 2 L daily. She already received 60 mg of Lasix this morning. History of Present Illness Attending Physician: Gabriela Guadarrama MD History of Present Illness This is a 73-year-old female being seen for DOLORES and anasarca. Past medical history of NAFLD/cirrhosis of the liver with esophageal varices, ascites, chronic thrombocytopenia, breast cancer status post surgery and radiation, on anastrozole, moderate persistent asthma, COPD, type 2 diabetes mellitus, anemia of chronic disease, gastroesophageal reflux. She has normal renal function at baseline. Creatinine was 0.75 last month. She was admitted with a creatinine of 1.28. She is making some urine. She was given IV Lasix 60 mg twice daily. She was net -300 mL. Main complaint today is massive leg swelling and abdominal swelling which has been going on for about a month. Patient hospitalized at [facility] in March 2023 with acute on chronic hyponatremia treated with IV fluids. Chest x-ray on admission showed pulmonary vascular congestion but no pulmonary edema. Sodium is slightly low at 133. Patient also has low magnesium. She denies alcohol use. No NSAID use. Recent labs and imaging were reviewed. Allergies Allergy/AdvReac Type Severity Reaction Status Date / Time albuterol Allergy Severe HIVES, Verified 05/15/23 17:57 DIFFICULTY WALKING, SHAKINESS, STUTTERING azithromycin Allergy Severe SHORT OF Verified 05/15/23 17:57 BREATH, PALPITATIONS tramadol Allergy Severe SEE COMMENT Verified 05/15/23 17:57 ibuprofen Allergy Intermediate Hives Verified 05/15/23 17:57 cephalexin AdvReac Severe "HEART Verified 05/15/23 17:57 PALPATIONS" morphine AdvReac Unknown PT STATES Verified 05/15/23 17:57 "BUILT UP A TOLERANCE TO MED, DOESN'T WORK". OPOIDS Allergy Severe DECREASE Uncoded 05/15/23 17:57 RESPIRATIONS--RECEIVED NARCAN Home Medications Medication Instructions Recorded Confirmed Type calcium carbonate 600 mg-vitamin 1 cap PO BID 02/11/18 05/15/23 History D3 10 mcg (400 unit) capsule latanoprost 0.005 % eye drops 1 drp OPB HS 04/11/18 05/15/23 History montelukast 10 mg tablet 10 mg PO QAM 04/11/18 05/15/23 History pantoprazole 40 mg tablet,delayed 40 mg PO DAILYBB 04/11/18 05/15/23 History release levalbuterol tartrate 45 1 puff inhalation Q4H PRN Wheezing 11/11/18 05/15/23 History mcg/actuation aerosol inhaler milk thistle seed extract 175 mg 175 mg PO QAM 01/21/19 05/15/23 History tablet acetaminophen 650 mg 650 mg PO Q8H PRN Pain 07/14/20 05/15/23 History tablet,extended release (Tylenol 8 Hour) blood sugar diagnostic (OneTouch #50 ea 07/15/20 Rx Verio test strips) lancets 30 gauge (OneTouch Delica #100 ea 07/15/20 Rx Lancets) cyclosporine 0.05 % eye drops in a 1 drp ophthalmic (eye) QAM 12/22/20 05/15/23 History dropperette (Restasis) cinnamon bark 500 mg capsule 1,000 mg PO TID 01/20/22 05/15/23 History (Cinnamon) fluticasone propionate 110 2 puff inhalation AMPM 01/20/22 05/15/23 History mcg/actuation HFA aerosol inhaler garlic 100 mg tablet 1,000 mg PO BID 01/20/22 05/15/23 History guaifenesin 100 mg/5 mL oral 200 mg (10 mL) PO Q6H PRN cough 01/22/22 05/15/23 Rx liquid (Cough Syrup) #473 mL sodium di- and 1 tab PO BID #60 tabs 03/26/23 05/15/23 Rx monophosphate-potassium phos monobasic 250 mg tablet (Phospha Neutral) Lactobacillus rhamnosus GG 10 1 cap PO DAILY 05/15/23 05/15/23 History billion cell capsule (Culturelle) docusate sodium 100 mg capsule 100 mg PO TID PRN Constipation 05/15/23 05/15/23 History iron,carbonyl 65 mg-vitamin C 125 1 tab PO HS 05/15/23 05/15/23 History mg tablet,delayed release (Vitron-C) lactulose 10 gram/15 mL (15 mL) 45 g PO DAILY PRN constipation 05/15/23 05/15/23 History oral solution levalbuterol HCl 1.25 mg/3 mL 1.25 mg inhalation Q4H PRN Wheezing 05/15/23 05/15/23 History solution for nebulization potassium chloride 20 mEq 40 meq PO QAM 05/15/23 05/15/23 History tablet,extended release psyllium husk 6 gram oral powder 6 g PO TID PRN Constipation 05/15/23 05/15/23 History packet torsemide 100 mg tablet 100 mg PO QAM 05/15/23 05/15/23 History Patient History Medical History Paroxysmal atrial tachycardia Abnormal chest x-ray Bronchitis Cirrhosis Incarcerated hernia of abdominal cavity Osteoarthritis Fibromyalgia Cirrhosis of liver not due to alcohol Thyroid goiter just monitoring for now Glaucoma bilt Migraine Sinus arrhythmia Chronic obstructive pulmonary disease Esophageal varices hx of banding Diverticulitis Malignant neoplasm of left breast, stage 1, estrogen receptor positive (09/26/17) "Status post bilateral breast reduction in 1998 Status post abnormal left breast mammogram Status post ultrasound core needle biopsy September 26, 2017 Infiltrating carcinoma, grade 2 Estrogen receptor positive, progesterone receptor positive, 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 Status post needle localization lumpectomy and sentinel lymph node biopsy October 16, 2017 Stage pT1c pN0 M0 Status post completion of radiation therapy January 01, 2018. She received 5130 cGy utilizing hypo-fractionation." On 11/19/17 11:17 Blossom Brandt wrote "Status post bilateral breast reduction in 1998 Status post abnormal left breast mammogram Status post ultrasound core needle biopsy September 26, 2017 Infiltrating carcinoma, grade 2 Estrogen receptor positive, progesterone receptor positive, 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 Status post needle localization lumpectomy and sentinel lymph node biopsy October 16, 2017 Stage pT1c pN0 M0 Status post completion of radiation therapy January 01, 2018. She received 5130 centigrade utilizing hypo-fractionation. Rectal vaginal fistula Asthma HTN (hypertension) CAD (coronary artery disease) Surgical History Status post left foot surgery planter fascitis Status post trigger finger release right thumb History of surgical removal of ganglion cyst right wrist History of repair of rectocele History of incisional hernia repair x8 History of ileostomy 1998 History of closure of ileostomy 1998---1 month after created History of bilateral salpingo-oophorectomy (BSO) History of colonoscopy History of appendectomy History of esophagogastroduodenoscopy (EGD) History of needle biopsy left breast---malignant History of lumpectomy of left breast with lymph node removal History of tonsillectomy and adenoidectomy Status post correction of deviated nasal septum History of ear surgery right ear "doctor broke my ear drum to drain the fluid" History of bilateral cataract extraction History of total right knee replacement x2 H/O arthroscopy of right knee History of cholecystectomy History of colostomy reversal 1997--8 weeks after colectomy History of partial colectomy 1997--diverticuli pocket ruptured @ [facility] H/O bilateral breast reduction surgery H/O: hysterectomy H/O tooth extraction all teeth removed Family History Sister Family history of diabetes mellitus Grandfather (Paternal) Family history of diabetes mellitus Family hx of colon cancer Grandfather (Maternal) Family history of diabetes mellitus Family/Other Family history of diabetes mellitus 2 cousins Other No family history of adverse response to anesthesia Social History Smoking Status: Never smoker Second Hand Exposure: No; Do You Dip or Chew Tobacco: No; Tobacco Cessation Education Requested by Patient: No Hx Alcohol Use: No Hx Substance Use: No Preferred Language: Cameroonian Communication Ability: Effective Funeral Pre Arrangement Specialist Required: No Beliefs That Will Affect Care: None marital status: Current Living Situation: Spouse current occupational status: retired How many Children do You have: 1 Other Information That Helps Us Care for You: No Feels Safe at Home: Yes Safety Concerns: Feels Safe At This Time Assistive Devices: Denture - Upper, Denture - Lower, Glasses and Raised Toilet Seat Review of Systems 2 Review of Systems: All other systems were reviewed and negative except as noted in HPI Physical Exam 2 Physical Exam: General exam: Appears comfortable, no acute distress HEENT: Pupils are equal and reactive to light Neck: No JVD, neck is supple trachea is midline Respiratory system: Clear breath sounds bilaterally. Gastrointestinal: Abdomen is soft, massively distended, non tender, bowel sounds are present CVS: Regular rate and rhythm. No murmurs, rubs or gallops Musculoskeletal: No joint or muscle tenderness Extremities: Non tender, 2+ edema, peripheral pulses are present Neuro: Oriented, no tremors, no focal neurological deficits Skin: No rashes Results & Data Vital Signs (Past 12 Hours) Vital Signs Temp Pulse Resp BP Pulse Ox O2 Del Method 05/16/23 11:36 36.5 C 100 H 20 123/79 96 Room Air 05/16/23 08:00 Room Air 05/16/23 07:21 36.7 C 105 H 18 115/80 97 Room Air 05/16/23 03:00 36.7 C 105 H 19 96/71 L 96 Room Air Laboratory Results 05/16/23 05:20 05/15/23 05/16/23 16:40 05:20 WBC 8.62 6.49 RBC 3.13 L 2.93 L MCV 90.1 90.8 MCH 30.0 29.7 MCHC 33.3 32.7 RDW Std Deviation 60.4 H 60.4 H RDW Coeff of Monster 18.6 H 18.6 H Plt Count 134 115 L MPV 8.9 L 9.5 Phosphorus 3.4 Albumin 2.5 L 2.2 L
[2023-05-16] MEDS: FUROSEMIDE 10 MG/ML 10 ML VIAL IV SCH ×2 (13:35→17:54)
--- NOTE | 2023-05-16 14:08 | Hospitalist Progress Note ---
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 She reports taking torsemide 100 mg daily since February and has not shown any improvement of the edema. From chart review patient was 72 kg in March and 101 kg at presentation this time. She is being managed for the following: Acute on chronic diastolic heart failure Anasarca: Likely secondary to above complicated by history of liver cirrhosis. Patient presented with generalized body edema associated with shortness of breath, increase in weight noted (see above) Patient reports taking torsemide 100 mg daily since February. Patient has history of hypertensive heart disease and failure. Also with history of atrial tachycardia. Admitting CXR with pulmonary vascular congestion Admitting troponin negative. Admitting EKG with sinus tachycardia. 02/28/2023 echo: EF 65 to 70%, grade 1 diastolic dysfunction, mild concentric LVH. Strict I's and O's, fluid restriction 1200 mL, Michaels catheter. Nephrology and cardiology on board, managing diuresis. f/u echo History of liver cirrhosis: No signs and symptoms of encephalopathy. Sodium levels has been reasonable. On lactulose at home, continue. Chronic hyponatremia: Admitting sodium of 133, appears stable. OP chart review w/ Na level around low 130s. Will follow. Acute renal failure: Baseline creatinine around 0.75, admitting creatinine of 1.28. Cr improving today, likely secondary to cardiorenal syndrome. Nephrology on board, appreciate recs. Other chronic medical conditions: Continue with/resume home meds as and when able Hypertension, blood pressure remains a stable, patient being diuresed. Asthma, no acute symptoms, continue home inhalers DVT prophylaxis: Heparin subcu CODE STATUS: DNR/DNI Admission and Anticipated Discharge Date Admission Date: May 15, 2023 Subjective Patient was seen and examined at bedside. Patient was lying in bed, on room air, resting comfortably, not in any acute distress. Patient reports no new acute event overnight, reports eating okay and moving bowels yesterday. Patient reports he still having shortness of breath with minimal activity. Patient denies abdominal pain. Patient denies any chest pain or dizziness, reports feeling about the same as yesterday. Physical Exam Physical Exam: GENERAL: Alert and oriented x3. NAD, on RA. HEENT: No pallor, no icterus. Pupils equal, round and reactive to light. Oral mucosa moist. NECK: No JVD, no neck masses. HEART: S1 and S2 heard. Regular rate and rhythm. No murmur, no gallop. RESPIRATORY SYSTEM: Normal AP diameter. No accessory muscle use. No wheezing, bb crackles. ABDOMEN: Soft, bowel sounds present, nontender, + distention. CENTRAL NERVOUS SYSTEM: No facial droop. Speech is clear. Obeys simple commands. Moves extremities. EXTREMITIES: 3 + ble edema, thigh edema, abd edema, no erythema seen. Michaels in w/ nelly urine collection. Results & Data Results & Data Vital Signs (Past 12 Hours) Vital Signs Temp Pulse Pulse Resp BP Pulse Ox O2 Del Method 05/16/23 13:09 106 H 05/16/23 11:36 36.5 C 100 H 20 123/79 96 Room Air 05/16/23 08:00 Room Air 05/16/23 07:21 36.7 C 105 H 18 115/80 97 Room Air 05/16/23 03:00 36.7 C 105 H 19 96/71 L 96 Room Air
[2023-05-16] MEDS: LATANOPROST 0.005% OP SOLN 2.5 ML BTL OPB SCH (21:05)
[2023-05-17] MEDS: PANTOprazole 40 MG TAB PO SCH (06:09)
[2023-05-17 06:16] LABS: Hematocrit (blood only) 26.6 % (37.0-47.0); Hemoglobin 8.8 g/dl (12.0-16.0); Mean Corpuscular Hemoglobin 30.1 pg (25.0-34.0); Mean Corpuscular Hgb Conc 33.1 g/dL (32.0-36.0); Mean Corpuscular Volume 91.1 fL (80.0-100.0); Mean Platelet Volume 8.9 fL (9.4-12.4); Platelet Count 110 K/uL (130-400); RDW Coefficient of Variation 18.6 % (11.5-14.5); RDW Standard Deviation 60.6 fL (36.4-46.3); Red Blood Count 2.92 M/uL (4.20-5.40); White Blood Count 6.47 K/ul (4.8-10.8)
[2023-05-17 06:39] LABS: Potassium 3.9 mmol/L (3.5-5.1)
[2023-05-17 06:45] LABS: BUN Creatinine Ratio 21.9 (10-20); Creatinine Clr Calc Pharmacy 48.8 ml/min; Est GFR (Non-African American) 48.3 ml/min; Phosphorus 3.4 mg/dl (2.5-4.9)
[2023-05-17] MEDS: INSULIN ASPART PER UNIT CHARGE SC SCH ×4 (07:37→20:06)
[2023-05-17] MEDS: CALCIUM 600MG + VIT D 400 IU TAB PO SCH ×2 (08:44→20:08)
[2023-05-17] MEDS: FUROSEMIDE 10 MG/ML 10 ML VIAL IV SCH ×2 (08:44→17:18)
[2023-05-17] MEDS: FLUTICASONE FUROATE 200MCG 14 PUFFS/INHALER INH SCH (08:44)
[2023-05-17] MEDS: MONTELUKAST SODIUM 10 MG TABLET PO SCH (08:45)
[2023-05-17] MEDS: LACTOBACILLUS ACIDOPHILUS 1 GM PACK PO SCH (08:45)
[2023-05-17] MEDS: POT PHOSPHATE MONOBASIC W/ SOD TAB PO SCH ×2 (08:45→20:08)
[2023-05-17] MEDS: POTASSIUM CHLORIDE CRTAB 20 MEQ TABCR PO SCH (09:16)
[2023-05-17] MEDS: ARTIFICIAL TEARS OP SCH (09:16)
[2023-05-17] MEDS ORDERED: metOLazone 5 MG TABLET PO ONE (10:19)
--- NOTE | 2023-05-17 11:31 | Ultrasound Report ---
ULTRASOUND ASCITES CHECK CLINICAL HISTORY: Abdominal ascites. COMPARISON STUDY: Abdominal CT dated 03/22/2023. FINDINGS: Real-time grayscale sonography of all 4 quadrants of the abdomen is performed to assess for abdominal ascites. There is a [id number] volume of abdominopelvic ascites with fluid seen in all 4 quadrants. IMPRESSION: Small to moderate volume of abdominopelvic ascites. Electronically signed by: Jorge Luis Gann M.D. 05/17/2023 11:29 AM
--- NOTE | 2023-05-17 12:35 | Nephrology Progress Note ---
Date of Service May 17, 2023 Assessment & Plan (1) Acute hyponatremia: Plan: Patient with hyponatremia due to hypervolemia. She has decompensated cirrhosis with ascites and massive edema. Will continue aggressive diuresis and fluid restriction of 1.2 L daily. (2) DOLORES (acute kidney injury): Plan: Patient with acute kidney injury with admission creatinine of 1.3 from a baseline of 0.7. This is due to cardiorenal syndrome. Will continue diuretics and monitor renal function with daily BMP. Will avoid nephrotoxins such as contrast. (3) Acute diastolic (congestive) heart failure: Plan: Patient with over 20 pound weight gain in the past 1 month. Will continue IV Lasix to 100 mg twice daily with goal of making her net negative at least 2 L daily. Will add metolazone 5 mg twice daily. Admission and Anticipated Discharge Date Admission Date: May 15, 2023 Subjective Seen for decompensated cirrhosis and massive fluid overload. Patient still not in negative balance. She complains of shortness of breath. Review of Systems 2 Review of Systems: All other systems were reviewed and negative except as noted in HPI Physical Exam 2 Physical Exam: General exam: Appears comfortable, no acute distress HEENT: Pupils are equal and reactive to light Neck: No JVD, neck is supple trachea is midline Respiratory system: Clear breath sounds bilaterally. Gastrointestinal: Abdomen is soft, massively distended, non tender, bowel sounds are present CVS: Regular rate and rhythm. No murmurs, rubs or gallops Musculoskeletal: No joint or muscle tenderness Extremities: Non tender, 2+ edema, peripheral pulses are present Neuro: Oriented, no tremors, no focal neurological deficits Skin: No rashes Results & Data Vital Signs (Past 12 Hours) Vital Signs Temp Pulse Pulse Resp BP BP Pulse Ox 05/17/23 12:19 36.4 C L 106 H 18 121/70 95 05/17/23 09:00 05/17/23 08:00 96 H 05/17/23 07:47 36.4 C L 98 H 18 121/70 96 05/17/23 03:18 36.9 C 97 H 18 105/62 95 O2 Del Method 05/17/23 12:19 Room Air 05/17/23 09:00 Room Air 05/17/23 08:00 05/17/23 07:47 Room Air 05/17/23 03:18 Room Air Laboratory Results 05/17/23 05:23 05/17/23 05:23 WBC 6.47 RBC 2.92 L MCV 91.1 MCH 30.1 MCHC 33.1 RDW Std Deviation 60.6 H RDW Coeff of Monster 18.6 H Plt Count 110 L MPV 8.9 L Phosphorus 3.4
[2023-05-17] MEDS: ONDANSETRON INJ 2 MG/ML 2 ML VIAL IV PRN (12:42)
--- NOTE | 2023-05-17 12:44 | Gastrointestinal Consultation ---
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 - Diuretic management per Cardiology and Nephrology. Discussed with Nephrology about possibly adding Albumin + Bumex IV if pt not well diuresed with current Lasix and addition of Metolazone today - Monitor renal function and electrolytes closely - Strict I&Os, daily weights - 2g Na diet, 1.2L fluid restriction - F/U with her primary head setter (Dr. Elizabeth) upon DC Supervising Physician Co-Signing Physician Notes I personally saw and evaluated the patient on 05/17/2023 with RAKEL Benjamin and agree with her findings and plan of care. Patient with significant anasarca on exam. 4+ lower extremity swelling to the thighs and small ascites on exam but hard to appreciate due to significant abdominal wall edema. AAOx3 without asterixis. MELD-Na 17. Patient with history of decompensated ADRIAN cirrhosis c/b HE and ascites admitted with volume overload reports a 30 lb weight gain in 2-[address] Elizabeth in the outpatient setting. Reports she was taking PO torsemide 100 mg daily at home and no aldactone (? reports it didn't work in past). Here cardi ology and nephrology are following and she is on IV lasix 100 mg BID and metolazone 5 mg BID was added today. Will defer diuretic management to nephrology who has been managing this. Would recommend if inadequate response to IV lasix (looks like only net negative 300 cc) given her low albumin to use IV bumex. In addition, may want to consider IV albumin 25 mg TID to help augment her diuresis give hypoalbuminemia as well. Daily MELD labs while admitted. Continue lactulose and titrate for 3 soft bowel movements/daily. She has only small-moderate ascites on ultrasound and given significant body wall edema do not think they will be able to perform any paracentesis. 2 gram sodium restricted diet and 1.5L fluid restriction. Aniyah Mora, DO Gastroenterology and Hepatology History of Present Illness Reason for Consultation: Decompensated cirrhosis Requesting Physician: Dr. Gabriela Guadarrama Attending Physician: Dr. Aniyah Mora History of Present Illness Pt is a 73 yo female w PMHx of NAFLD cirrhosis, COPD, HTN w heart failure, DM II, Atrial tachycardia, HTN, HDL, GERD, glaucoma who presented w increased swelling of legs, abdomen, SOB and 30 lbs weight gain in the last 3 months per her report. She had been taking Torsemide 150mg daily at home and previously Spironolactone but they don't seem to work for her. She is currently followed by Cardiology and Nephrology, on Lasix 100mg IV BID. Matolozone added this morning. Labs reviewed which showed anemia at her baseline, normal renal function now, Na 133. BNP 103. LFTs: Tbili 2.3, AST 41, ALT 20, Alk phose 152. Urine Na 12. CXR w pulmonary vascular congestion wo edema, US abd showed small to moderate ascites. Allergies Allergy/AdvReac Type Severity Reaction Status Date / Time albuterol Allergy Severe HIVES, Verified 05/15/23 17:57 DIFFICULTY WALKING, SHAKINESS, STUTTERING azithromycin Allergy Severe SHORT OF Verified 05/15/23 17:57 BREATH, PALPITATIONS tramadol Allergy Severe SEE COMMENT Verified 05/15/23 17:57 ibuprofen Allergy Intermediate Hives Verified 05/15/23 17:57 cephalexin AdvReac Severe "HEART Verified 05/15/23 17:57 PALPATIONS" morphine AdvReac Unknown PT STATES Verified 05/15/23 17:57 "BUILT UP A TOLERANCE TO MED, DOESN'T WORK". OPOIDS Allergy Severe DECREASE Uncoded 05/15/23 17:57 RESPIRATIONS--RECEIVED NARCAN Home Medications Medication Instructions Recorded Confirmed Type calcium carbonate 600 mg-vitamin 1 cap PO BID 02/11/18 05/15/23 History D3 10 mcg (400 unit) capsule latanoprost 0.005 % eye drops 1 drp OPB HS 04/11/18 05/15/23 History montelukast 10 mg tablet 10 mg PO QAM 04/11/18 05/15/23 History pantoprazole 40 mg tablet,delayed 40 mg PO DAILYBB 04/11/18 05/15/23 History release levalbuterol tartrate 45 1 puff inhalation Q4H PRN Wheezing 11/11/18 05/15/23 History mcg/actuation aerosol inhaler milk thistle seed extract 175 mg 175 mg PO QAM 01/21/19 05/15/23 History tablet acetaminophen 650 mg 650 mg PO Q8H PRN Pain 07/14/20 05/15/23 History tablet,extended release (Tylenol 8 Hour) blood sugar diagnostic (OneTouch #50 ea 07/15/20 Rx Verio test strips) lancets 30 gauge (OneTouch Delica #100 ea 07/15/20 Rx Lancets) cyclosporine 0.05 % eye drops in a 1 drp ophthalmic (eye) QAM 12/22/20 05/15/23 History dropperette (Restasis) cinnamon bark 500 mg capsule 1,000 mg PO TID 01/20/22 05/15/23 History (Cinnamon) fluticasone propionate 110 2 puff inhalation AMPM 01/20/22 05/15/23 History mcg/actuation HFA aerosol inhaler garlic 100 mg tablet 1,000 mg PO BID 01/20/22 05/15/23 History guaifenesin 100 mg/5 mL oral 200 mg (10 mL) PO Q6H PRN cough 01/22/22 05/15/23 Rx liquid (Cough Syrup) #473 mL sodium di- and 1 tab PO BID #60 tabs 03/26/23 05/15/23 Rx monophosphate-potassium phos monobasic 250 mg tablet (Phospha Neutral) Lactobacillus rhamnosus GG 10 1 cap PO DAILY 05/15/23 05/15/23 History billion cell capsule (Culturelle) docusate sodium 100 mg capsule 100 mg PO TID PRN Constipation 05/15/23 05/15/23 History iron,carbonyl 65 mg-vitamin C 125 1 tab PO HS 05/15/23 05/15/23 History mg tablet,delayed release (Vitron-C) lactulose 10 gram/15 mL (15 mL) 45 g PO DAILY PRN constipation 05/15/23 05/15/23 History oral solution levalbuterol HCl 1.25 mg/3 mL 1.25 mg inhalation Q4H PRN Wheezing 05/15/23 05/15/23 History solution for nebulization potassium chloride 20 mEq 40 meq PO QAM 05/15/23 05/15/23 History tablet,extended release psyllium husk 6 gram oral powder 6 g PO TID PRN Constipation 05/15/23 05/15/23 History packet torsemide 100 mg tablet 100 mg PO QAM 05/15/23 05/15/23 History Patient History Medical History Paroxysmal atrial tachycardia Abnormal chest x-ray Bronchitis Cirrhosis Incarcerated hernia of abdominal cavity Osteoarthritis Fibromyalgia Cirrhosis of liver not due to alcohol Thyroid goiter just monitoring for now Glaucoma bilt Migraine Sinus arrhythmia Chronic obstructive pulmonary disease Esophageal varices hx of banding Diverticulitis Malignant neoplasm of left breast, stage 1, estrogen receptor positive (09/26/17) "Status post bilateral breast reduction in 1998 Status post abnormal left breast mammogram Status post ultrasound core needle biopsy September 26, 2017 Infiltrating carcinoma, grade 2 Estrogen receptor positive, progesterone receptor positive, 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 Status post needle localization lumpectomy and sentinel lymph node biopsy October 16, 2017 Stage pT1c pN0 M0 Status post completion of radiation therapy January 01, 2018. She received 5130 cGy utilizing hypo-fractionation." On 11/19/17 11:17 Blossom Brandt wrote "Status post bilateral breast reduction in 1998 Status post abnormal left breast mammogram Status post ultrasound core needle biopsy September 26, 2017 Infiltrating carcinoma, grade 2 Estrogen receptor positive, progesterone receptor positive, 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 Status post needle localization lumpectomy and sentinel lymph node biopsy October 16, 2017 Stage pT1c pN0 M0 Status post completion of radiation therapy January 01, 2018. She received 5130 centigrade utilizing hypo-fractionation. Rectal vaginal fistula Asthma HTN (hypertension) CAD (coronary artery disease) Surgical History Status post left foot surgery planter fascitis Status post trigger finger release right thumb History of surgical removal of ganglion cyst right wrist History of repair of rectocele History of incisional hernia repair x8 History of ileostomy 1998 History of closure of ileostomy 1998---1 month after created History of bilateral salpingo-oophorectomy (BSO) History of colonoscopy History of appendectomy History of esophagogastroduodenoscopy (EGD) History of needle biopsy left breast---malignant History of lumpectomy of left breast with lymph node removal History of tonsillectomy and adenoidectomy Status post correction of deviated nasal septum History of ear surgery right ear "doctor broke my ear drum to drain the fluid" History of bilateral cataract extraction History of total right knee replacement x2 H/O arthroscopy of right knee History of cholecystectomy History of colostomy reversal 1997--8 weeks after colectomy History of partial colectomy 1997--diverticuli pocket ruptured @ [facility] H/O bilateral breast reduction surgery H/O: hysterectomy H/O tooth extraction all teeth removed Family History Sister Family history of diabetes mellitus Grandfather (Paternal) Family history of diabetes mellitus Family hx of colon cancer Grandfather (Maternal) Family history of diabetes mellitus Family/Other Family history of diabetes mellitus 2 cousins Other No family history of adverse response to anesthesia Social History Smoking Status: Never smoker Second Hand Exposure: No; Do You Dip or Chew Tobacco: No; Tobacco Cessation Education Requested by Patient: No Hx Alcohol Use: No Hx Substance Use: No Preferred Language: Citizen Of [place] Communication Ability: Effective 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 Required: No Beliefs That Will Affect Care: None marital status: Current Living Situation: Spouse current occupational status: retired How many Children do You have: 1 Other Information That Helps Us Care for You: No Feels Safe at Home: Yes Safety Concerns: Feels Safe At This Time Assistive Devices: Cane and Nebulizer Review of Systems Review of Systems: All systems reviewed & are unremarkable except as noted in HPI & below Physical Exam Constitutional: WD/WN, vitals as above well groomed, cooperative and comfortable Eyes: PERRL, conjunctivae normal, anicteric sclerae ENMT: external ear and nose normal, oropharynx normal Respiratory: Slight tachypneic, and increased work of breathing noted. Diminished bilateral bases Cardiovascular: RRR, no murmur, no edema Gastrointestinal (Abdomen): normal bowel sounds, soft, nontender, no hepatosplenomegaly Skin: no rashes, warm and dry no jaundice Neurologic: Motor/Sensory: no asterixis Psychiatric: A+Ox3, euthymic affect Lymphatic: + lymphedema (+3 pitting edema on bilate ral LE and anasarca noted. ) Results & Data Vital Signs (Past 12 Hours) Vital Signs Temp Pulse Pulse Resp BP BP Pulse Ox 05/17/23 12:19 36.4 C L 106 H 18 121/70 95 05/17/23 09:00 05/17/23 08:00 96 H 05/17/23 07:47 36.4 C L 98 H 18 121/70 96 05/17/23 03:18 36.9 C 97 H 18 105/62 95 O2 Del Method 05/17/23 12:19 Room Air 05/17/23 09:00 Room Air 05/17/23 08:00 05/17/23 07:47 Room Air 05/17/23 03:18 Room Air
[2023-05-17] MEDS ORDERED: LACTULOSE SYRUP 10 GM/15 ML BTL 960 ML PO PRN (16:15)
--- NOTE | 2023-05-17 16:16 | Hospitalist Progress Note ---
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 She reports taking torsemide 100 mg daily since February and has not shown any improvement of the edema. From chart review patient was 72 kg in March and 101 kg at presentation this time. She is being managed for the following: Decompensated Cirrhosis w/ ascites Acute on chronic diastolic heart failure Anasarca: Likely secondary to above complicated by history of liver cirrhosis. Patient presented with generalized body edema associated with shortness of breath, increase in weight noted (see above) Patient reports taking torsemide 100 mg daily since February. Patient has history of hypertensive heart disease and failure. Also with history of atrial tachycardia. Admitting CXR with pulmonary vascular congestion Admitting troponin negative. Admitting EKG with sinus tachycardia. 02/28/2023 echo: EF 65 to 70%, grade 1 diastolic dysfunction, mild concentric LVH. 05/16/23 ECHO: Ejection fraction greater than 70%, grade 1 diastolic dysfunction, no pericardial effusion. Strict I's and O's, fluid restriction 1200 mL, Michaels catheter. Nephrology on board, managing diuresis. Patient still with shortness of breath with minimal activity. Furosemide and metolazone on board. Abdominal ultrasound with small to moderate ascites. GI evaluated, appreciate recommendation. History of liver cirrhosis: No signs and symptoms of encephalopathy. Sodium levels has been reasonable. On lactulose at home, continue. Chronic hyponatremia: Admitting sodium of 133, appears stable. OP chart review w/ Na level around low 130s. Will follow. Acute renal failure: Baseline creatinine around 0.75, admitting creatinine of 1.28. Cr improving today, likely secondary to cardiorenal syndrome. Nephrology on board, appreciate recs. Other chronic medical conditions: Continue with/resume home meds as and when able Hypertension, blood pressure remains a stable, patient being diuresed. Asthma, no acute symptoms, continue home inhalers DVT prophylaxis: Heparin subcu CODE STATUS: DNR/DNI Admission and Anticipated Discharge Date Admission Date: May 15, 2023 Subjective Patient was seen and examined at bedside. Patient was lying in bed, on room air, feeling nauseous after US abd today; was able to eat her food ok in AM. Patient reports no new acute event overnight, reports eating okay and moving 2 bowels yesterday. Pt to continue to take her lactulose. Patient reports he still having shortness of breath with minimal activity. Patient denies abdominal pain. Patient denies any chest pain or dizziness. Physical Exam Physical Exam: GENERAL: Alert and oriented x3. NAD, on RA. HEENT: No pallor, no icterus. Pupils equal, round and reactive to light. Oral mucosa moist. NECK: No JVD, no neck masses. HEART: S1 and S2 heard. Regular rate and rhythm. No murmur, no gallop. RESPIRATORY SYSTEM: Normal AP diameter. No accessory muscle use. No wheezing, bb crackles. ABDOMEN: Soft, bowel sounds present, nontender, + distention. CENTRAL NERVOUS SYSTEM: No facial droop. Speech is clear. Obeys simple comm ands. Moves extremities. EXTREMITIES: 3 + ble edema, thigh edema, abd edema, no erythema seen. Michaels in w/ nelly urine collection. Results & Data Results & Data Vital Signs (Past 12 Hours) Vital Signs Temp Pulse Pulse Resp BP BP Pulse Ox 05/17/23 16:00 102 H 05/17/23 14:48 36.4 C L 102 H 18 123/76 95 05/17/23 12:19 36.4 C L 106 H 18 121/70 95 05/17/23 09:00 05/17/23 08:00 96 H 05/17/23 07:47 36.4 C L 98 H 18 121/70 96 O2 Del Method 05/17/23 16:00 05/17/23 14:48 Room Air 05/17/23 12:19 Room Air 05/17/23 09:00 Room Air 05/17/23 08:00 05/17/23 07:47 Room Air
[2023-05-17] MEDS: metOLazone 5 MG TABLET PO SCH (17:18)
[2023-05-17] MEDS: LATANOPROST 0.005% OP SOLN 2.5 ML BTL OPB SCH (20:07)
[2023-05-18] MEDS: ONDANSETRON INJ 2 MG/ML 2 ML VIAL IV PRN (00:20)
[2023-05-18] MEDS: PANTOprazole 40 MG TAB PO SCH (05:57)
[2023-05-18 06:16] LABS: Hemoglobin 8.4 g/dl (12.0-16.0); Mean Corpuscular Hemoglobin 29.3 pg (25.0-34.0); Mean Corpuscular Hgb Conc 32.3 g/dL (32.0-36.0); Mean Corpuscular Volume 90.6 fL (80.0-100.0); Mean Platelet Volume 9.2 fL (9.4-12.4); Platelet Count 97 K/uL (130-400); RDW Coefficient of Variation 18.9 % (11.5-14.5); RDW Standard Deviation 61.9 fL (36.4-46.3); Red Blood Count 2.87 M/uL (4.20-5.40); White Blood Count 6.84 K/ul (4.8-10.8)
[2023-05-18 06:37] LABS: BUN Creatinine Ratio 19.5 (10-20); Calcium 7.9 mg/dl (8.6-10.3); Creatinine Clr Calc Pharmacy 47.1 ml/min; Est GFR (African American) 53.7 ml/min; Est GFR (Non-African American) 46.4 ml/min; Magnesium 1.7 mg/dl (1.7-2.4); Phosphorus 3.9 mg/dl (2.5-4.9)
[2023-05-18] MEDS ORDERED: POTASSIUM CHLORIDE CRTAB 20 MEQ TABCR PO STA (07:47)
[2023-05-18] MEDS ORDERED: POTASSIUM CHLORIDE CRTAB 20 MEQ TABCR PO SCH (09:00)
[2023-05-18] MEDS: INSULIN ASPART PER UNIT CHARGE SC SCH ×4 (09:08→19:06)
[2023-05-18] MEDS: ARTIFICIAL TEARS OP SCH (09:09)
[2023-05-18] MEDS: MONTELUKAST SODIUM 10 MG TABLET PO SCH (09:10)
[2023-05-18] MEDS: POT PHOSPHATE MONOBASIC W/ SOD TAB PO SCH ×2 (09:10→21:01)
[2023-05-18] MEDS: CALCIUM 600MG + VIT D 400 IU TAB PO SCH ×2 (09:11→21:01)
[2023-05-18] MEDS: FUROSEMIDE 10 MG/ML 10 ML VIAL IV SCH ×2 (09:12→16:27)
[2023-05-18] MEDS: FLUTICASONE FUROATE 200MCG 14 PUFFS/INHALER INH SCH (09:12)
[2023-05-18] MEDS: LACTOBACILLUS ACIDOPHILUS 1 GM PACK PO SCH (09:12)
[2023-05-18] MEDS: metOLazone 5 MG TABLET PO SCH ×2 (09:13→16:30)
[2023-05-18] MEDS: MAGNESIUM SULFATE / D5W 1 GM/100 ML BAG IV SCH ×2 (09:14→10:27)
--- NOTE | 2023-05-18 10:53 | Nephrology Progress Note ---
Date of Service May 18, 2023 Assessment & Plan (1) Acute hyponatremia: Plan: Patient with hyponatremia due to hypervolemia. She has decompensated cirrhosis with ascites and massive edema. Will continue aggressive diuresis and fluid restriction of 1.2 L daily. (2) DOLORES (acute kidney injury): Plan: Patient with acute kidney injury with admission creatinine of 1.3 from a baseline of 0.7. Creatinine is down to 1.2. She has hypokalemia. This is due to cardiorenal syndrome. Will continue diuretics and monitor renal function with daily BMP. Will avoid nephrotoxins such as contrast. Will give potassium chloride 40 mill equivalents daily. (3) Acute diastolic (congestive) heart failure: Plan: Patient with over 20 pound weight gain in the past 1 month. Will continue IV Lasix to 100 mg twice daily with goal of making her net negative at least 2 L daily. Will add Aldactone 100 mg daily and continue metolazone 5 mg twice daily. Admission and Anticipated Discharge Date Admission Date: May 15, 2023 Subjective Seen for volume overload and decompensated cirrhosis. She made 1.7 L and net -1 L. Still grossly swollen. She has shortness of breath as well. Review of Systems 2 Review of Systems: All other systems were reviewed and negative except as noted in HPI Physical Exam 2 Physical Exam: General exam: Appears comfortable, no acute distress HEENT: Pupils are equal and reactive to light Neck: No JVD, neck is supple trachea is midline Respiratory system: Clear breath sounds bilaterally. Gastrointestinal: Abdomen is soft, massively distended, non tender, bowel sounds are present CVS: Regular rate and rhythm. No murmurs, rubs or gallops Musculoskeletal: No joint or muscle tenderness Extremities: Non tender, 2+ edema, peripheral pulses are present Neuro: Oriented, no tremors, no focal neurological deficits Skin: No rashes Results & Data Vital Signs (Past 12 Hours) Vital Signs Temp Pulse Pulse Resp BP Pulse Ox O2 Del Method 05/18/23 08:54 36.4 C L 103 H 18 117/77 95 Room Air 05/18/23 07:54 100 H 05/18/23 00:41 36.4 C L 109 H 22 109/70 95 Room Air 05/17/23 23:14 73 05/17/23 23:12 103 H Laboratory Results 05/18/23 05:44 05/18/23 05:44 WBC 6.84 RBC 2.87 L MCV 90.6 MCH 29.3 MCHC 32.3 RDW Std Deviation 61.9 H RDW Coeff of Monster 18.9 H Plt Count 97 L MPV 9.2 L Phosphorus 3.9
[2023-05-18] MEDS: SPIRONOLACTONE 100 MG TAB PO SCH (11:44)
--- NOTE | 2023-05-18 15:36 | Hospitalist Progress Note ---
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 She reports taking torsemide 100 mg daily since February and has not shown any improvement of the edema. From chart review patient was 72 kg in March and 101 kg at presentation this time. She is being managed for the following: Decompensated Cirrhosis w/ ascites Acute on chronic diastolic heart failure Anasarca: Likely secondary to above complicated by history of liver cirrhosis. Patient presented with generalized body edema associated with shortness of breath, increase in weight noted (see above) Patient reports taking torsemide 100 mg daily since February. Patient has history of hypertensive heart disease and failure. Also with history of atrial tachycardia. Admitting CXR with pulmonary vascular congestion Admitting troponin negative. Admitting EKG with sinus tachycardia. 02/28/2023 echo: EF 65 to 70%, grade 1 diastolic dysfunction, mild concentric LVH. 05/16/23 ECHO: Ejection fraction greater than 70%, grade 1 diastolic dysfunction, no pericardial effusion. Strict I's and O's, fluid restriction 1200 mL, Michaels catheter. Nephrology on board, managing diuresis. Aladactone added to metolazone and furosemide. Patient still with shortness of breath with minimal activity. Not much improved per pt. Abdominal ultrasound with small to moderate ascites. GI evaluated, appreciate recommendation. History of liver cirrhosis: No signs and symptoms of encephalopathy. Sodium levels has been reasonable. On lactulose at home, continue. Chronic hyponatremia: Admitting sodium of 133, appears stable. OP chart review w/ Na level around low 130s. Will follow. Acute renal failure: Baseline creatinine around 0.75, admitting creatinine of 1.28. Cr improving, likely secondary to cardiorenal syndrome. Nephrology on board, appreciate recs. Other chronic medical conditions: Continue with/resume home meds as and when able Hypertension, blood pressure remains a stable, patient being diuresed. Asthma, no acute symptoms, continue home inhalers DVT prophylaxis: Heparin subcu CODE STATUS: DNR/DNI Admission and Anticipated Discharge Date Admission Date: May 15, 2023 Subjective Patient was seen and examined at bedside. Patient was lying in bed, on room air, Nausea slightly better, able to eat ok though. Had 5 bm yesterday per pt. Patient reports no new acute event overnight. Pt to continue to take her lactulose. Patient reports she still having shortness of breath with minimal activity, has not much improved. Patient denies abdominal pain. Patient denies any chest pain or dizziness. Physical Exam Physical Exam: GENERAL: Alert and oriented x3. NAD, on RA. HEENT: No pallor, no icterus. Pupils equal, round and reactive to light. Oral mucosa moist. NECK: No JVD, no neck masses. HEART: S1 and S2 heard. Regular rate and rhythm. No murmur, no gallop. RESPIRATORY SYSTEM: Normal AP diameter. No accessory muscle use. No wheezing, bb crackles. ABDOMEN: Soft, bowel sounds present, nontender, + distention. CENTRAL NERVOUS SYSTEM: No facial droop. Speech is clear. Obeys simple commands. Moves extremities. EXTREMITIES: 3 + ble edema, thigh edema, abd edema, no erythema seen. Michaels in w/ nelly urine collection. Results & Data Results & Data Vital Signs (Past 12 Hours) Vital Signs Temp Pulse Pulse Resp BP BP Pulse Ox 05/18/23 15:24 104 H 05/18/23 15:15 36.8 C 105 H 18 125/76 96 05/18/23 11:30 36.4 C L 106 H 18 131/66 96 05/18/23 08:54 36.4 C L 103 H 18 117/77 95 05/18/23 07:54 100 H O2 Del Method 05/18/23 15:24 05/18/23 15:15 Room Air 05/18/23 11:30 Room Air 05/18/23 08:54 Room Air 05/18/23 07:54
[2023-05-18] MEDS: LATANOPROST 0.005% OP SOLN 2.5 ML BTL OPB SCH (21:01)
[2023-05-18] MEDS: HEPARIN SOD 5,000 UNIT/0.5 ML VIAL SQ SCH (21:02)
[2023-05-19] MEDS: PANTOprazole 40 MG TAB PO SCH (06:14)
[2023-05-19] MEDS: INSULIN ASPART PER UNIT CHARGE SC SCH ×4 (08:34→20:24)
[2023-05-19] MEDS: ARTIFICIAL TEARS OP SCH (08:37)
[2023-05-19] MEDS: FUROSEMIDE 10 MG/ML 10 ML VIAL IV SCH ×2 (08:38→17:38)
[2023-05-19] MEDS: FLUTICASONE FUROATE 200MCG 14 PUFFS/INHALER INH SCH (08:38)
[2023-05-19] MEDS: CALCIUM 600MG + VIT D 400 IU TAB PO SCH ×2 (08:38→21:00)
[2023-05-19] MEDS: HEPARIN SOD 5,000 UNIT/0.5 ML VIAL SQ SCH ×2 (08:40→20:24)
[2023-05-19] MEDS: LACTOBACILLUS ACIDOPHILUS 1 GM PACK PO SCH (08:42)
[2023-05-19] MEDS: metOLazone 5 MG TABLET PO SCH ×2 (08:43→17:38)
[2023-05-19] MEDS: MONTELUKAST SODIUM 10 MG TABLET PO SCH (08:43)
[2023-05-19] MEDS: SPIRONOLACTONE 100 MG TAB PO SCH (08:45)
[2023-05-19] MEDS: POT PHOSPHATE MONOBASIC W/ SOD TAB PO SCH ×2 (08:45→21:00)
[2023-05-19] MEDS ORDERED: POTASSIUM CHLORIDE CRTAB 20 MEQ TABCR PO SCH (09:00)
[2023-05-19 09:21] LABS: Hematocrit (blood only) 27.2 % (37.0-47.0); Hemoglobin 8.8 g/dl (12.0-16.0); Mean Corpuscular Hgb Conc 32.4 g/dL (32.0-36.0); Mean Corpuscular Volume 92.8 fL (80.0-100.0); Mean Platelet Volume 9.4 fL (9.4-12.4); Platelet Count 124 K/uL (130-400); RDW Coefficient of Variation 19.2 % (11.5-14.5); RDW Standard Deviation 64.6 fL (36.4-46.3); Red Blood Count 2.93 M/uL (4.20-5.40); White Blood Count 7.77 K/ul (4.8-10.8)
[2023-05-19 09:38] LABS: Calcium 7.8 mg/dl (8.6-10.3); Creatinine Clr Calc Pharmacy 46.3 ml/min; Est GFR (African American) 52.7 ml/min; Est GFR (Non-African American) 45.4 ml/min; Potassium 2.9 mmol/L (3.5-5.1)
--- NOTE | 2023-05-19 12:01 | Nephrology Progress Note ---
Date of Service May 19, 2023 Assessment & Plan (1) Acute hyponatremia: Plan: Patient with hyponatremia due to hypervolemia. She has decompensated cirrhosis with ascites and massive edema. Will continue aggressive diuresis and fluid restriction of 1.2 L daily. (2) DOLORES (acute kidney injury): Plan: Patient with acute kidney injury with admission creatinine of 1.3 from a baseline of 0.7. Creatinine is down to 1.2. She has hypokalemia. This is due to cardiorenal syndrome. Will continue diuretics and monitor renal function with daily BMP. Will avoid nephrotoxins such as contrast. Will give potassium chloride 40 baylee equivalents 3 times daily. (3) Acute diastolic (congestive) heart failure: Plan: Patient with over 20 pound weight gain in the past 1 month. Will continue IV Lasix to 100 mg twice daily with goal of making her net negative at least 2 L daily. Will continue Aldactone 100 mg daily and metolazone 5 mg twice daily. Admission and Anticipated Discharge Date Admission Date: May 15, 2023 Subjective Seen for hypervolemia. She is diuresing well and was net -1.6 L. Breathing is improved. Potassium is very low today. Review of Systems 2 Review of Systems: All other systems were reviewed and negative except as noted in HPI Physical Exam 2 Physical Exam: General exam: Appears comfortable, no acute distress HEENT: Pupils are equal and reactive to light Neck: No JVD, neck is supple trachea is midline Respiratory system: Clear breath sounds bilaterally. Gastrointestinal: Abdomen is soft, massively distended, non tender, bowel sounds are present CVS: Regular rate and rhythm. No murmurs, rubs or gallops Musculoskeletal: No joint or muscle tenderness Extremities: Non tender, 2+ edema, peripheral pulses are present Neuro: Oriented, no tremors, no focal neurological deficits Skin: No rashes Results & Data Vital Signs (Past 12 Hours) Vital Signs Temp Pulse Resp BP Pulse Ox O2 Del Method 05/19/23 08:03 36.6 C 107 H 18 131/77 92 Room Air 05/19/23 02:48 101 H 18 126/75 95 Room Air Laboratory Results 05/19/23 09:07 05/19/23 09:07 WBC 7.77 RBC 2.93 L MCV 92.8 MCH 30.0 MCHC 32.4 RDW Std Deviation 64.6 H RDW Coeff of Monster 19.2 H Plt Count 124 L MPV 9.4
[2023-05-19] MEDS: ONDANSETRON INJ 2 MG/ML 2 ML VIAL IV PRN ×2 (13:24→20:23)
[2023-05-19] MEDS: POTASSIUM CHLORIDE CRTAB 20 MEQ TABCR PO SCH ×2 (13:25→21:00)
--- NOTE | 2023-05-19 14:57 | Hospitalist Progress Note ---
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 She reports taking torsemide 100 mg daily since February and has not shown any improvement of the edema. From chart review patient was 72 kg in March and 101 kg at presentation this time. She is being managed for the following: Decompensated Cirrhosis w/ ascites Acute on chronic diastolic heart failure Anasarca: Likely secondary to above complicated by history of liver cirrhosis. Patient presented with generalized body edema associated with shortness of breath, increase in weight noted (see above) Patient reports taking torsemide 100 mg daily since February. Patient has history of hypertensive heart disease and failure. Also with history of atrial tachycardia. Admitting CXR with pulmonary vascular congestion Admitting troponin negative. Admitting EKG with sinus tachycardia. 02/28/2023 echo: EF 65 to 70%, grade 1 diastolic dysfunction, mild concentric LVH. 05/16/23 ECHO: Ejection fraction greater than 70%, grade 1 diastolic dysfunction, no pericardial effusion. Strict I's and O's, fluid restriction 1200 mL, Michaels catheter. Nephrology on board, managing diuresis. Aladactone , metolazone and furosemide. Patient w/ some improvement in her breathing. Abdominal ultrasound with small to moderate ascites. GI evaluated, appreciate recommendation. History of liver cirrhosis: No signs and symptoms of encephalopathy. Sodium levels has been reasonable. On lactulose at home, continue. Chronic hyponatremia: Admitting sodium of 133, appears stable. OP chart review w/ Na level around low 130s. Will follow. Acute renal failure: Baseline creatinine around 0.75, admitting creatinine of 1.28. Cr improving, likely secondary to cardiorenal syndrome. Nephrology on board, appreciate recs. Other chronic medical conditions: Continue with/resume home meds as and when able Hypertension, blood pressure remains a stable, patient being diuresed. Asthma, no acute symptoms, continue home inhalers DVT prophylaxis: Heparin subcu CODE STATUS: DNR/DNI Admission and Anticipated Discharge Date Admission Date: May 15, 2023 Subjective Patient was seen and examined at bedside. Patient was lying in bed, on room air, Nausea better, able to eat ok. Had 3 bm yesterday per pt. Patient reports no new acute event overnight. Pt to continue to take her lactulose. Patient reports some improvement in her breathing. Patient denies abdominal pain. Patient denies any chest pain or dizziness. Physical Exam Physical Exam: GENERAL: Alert and oriented x3. NAD, on RA. HEENT: No pallor, no icterus. Pupils equal, round and reactive to light. Oral mucosa moist. NECK: No JVD, no neck masses. HEART: S1 and S2 heard. Regular rate and rhythm. No murmur, no gallop. RESPIRATORY SYSTEM: Normal AP diameter. No accessory muscle use. No wheezing, bb crackles. ABDOMEN: Soft, bowel sounds present, nontender, + distention. CENTRAL NERVOUS SYSTEM: No facial droop. Speech is clear. Obeys simple commands. Moves extremities. EXTREMITIES: 3 + ble edema, thigh edema, abd edema, no erythema seen. Michaels in w/ nelly urine collection. Results & Data Results & Data Vital Signs (Past 12 Hours) Vital Signs Temp Pulse Pulse Resp BP Pulse Ox O2 Del Method 05/19/23 13:44 19 94 Room Air 05/19/23 12:06 36.9 C 107 H 18 122/66 94 Room Air 05/19/23 08:03 36.6 C 107 H 18 131/77 92 Room Air 05/19/23 07:15 102 H
[2023-05-19] MEDS: LATANOPROST 0.005% OP SOLN 2.5 ML BTL OPB SCH (21:00)
[2023-05-20] MEDS: PANTOprazole 40 MG TAB PO SCH (05:16)
[2023-05-20 07:19] LABS: Hematocrit (blood only) 26.8 % (37.0-47.0); Mean Corpuscular Hemoglobin 29.6 pg (25.0-34.0); Mean Corpuscular Hgb Conc 33.6 g/dL (32.0-36.0); Mean Corpuscular Volume 88.2 fL (80.0-100.0); Mean Platelet Volume 9.4 fL (9.4-12.4); Platelet Count 131 K/uL (130-400); RDW Standard Deviation 60.7 fL (36.4-46.3); Red Blood Count 3.04 M/uL (4.20-5.40); White Blood Count 8.79 K/ul (4.8-10.8)
[2023-05-20 07:46] LABS: BUN Creatinine Ratio 20.8 (10-20); Creatinine Clr Calc Pharmacy 46.3 ml/min; Est GFR (African American) 52.7 ml/min; Est GFR (Non-African American) 45.4 ml/min; Magnesium 1.7 mg/dl (1.7-2.4); Phosphorus 3.7 mg/dl (2.5-4.9); Potassium 3.6 mmol/L (3.5-5.1)
[2023-05-20] MEDS: SPIRONOLACTONE 100 MG TAB PO SCH (07:50)
[2023-05-20] MEDS: FLUTICASONE FUROATE 200MCG 14 PUFFS/INHALER INH SCH (07:50)
[2023-05-20] MEDS: MONTELUKAST SODIUM 10 MG TABLET PO SCH (07:51)
[2023-05-20] MEDS: ARTIFICIAL TEARS OP SCH (07:51)
[2023-05-20] MEDS: CALCIUM 600MG + VIT D 400 IU TAB PO SCH ×2 (07:51→19:49)
[2023-05-20] MEDS: metOLazone 5 MG TABLET PO SCH ×2 (07:51→16:44)
[2023-05-20] MEDS: POT PHOSPHATE MONOBASIC W/ SOD TAB PO SCH ×2 (07:51→19:49)
[2023-05-20] MEDS: POTASSIUM CHLORIDE CRTAB 20 MEQ TABCR PO SCH ×3 (07:51→19:48)
[2023-05-20] MEDS: FUROSEMIDE 10 MG/ML 10 ML VIAL IV SCH ×2 (07:52→16:44)
[2023-05-20] MEDS: INSULIN ASPART PER UNIT CHARGE SC SCH (07:52)
[2023-05-20] MEDS: HEPARIN SOD 5,000 UNIT/0.5 ML VIAL SQ SCH ×2 (07:52→19:48)
[2023-05-20] MEDS: LACTOBACILLUS ACIDOPHILUS 1 GM PACK PO SCH (07:53)
--- NOTE | 2023-05-20 11:10 | Nephrology Progress Note ---
Date of Service May 20, 2023 Assessment & Plan (1) Acute hyponatremia: Plan: Patient with hyponatremia due to hypervolemia. She has decompensated cirrhosis with ascites and massive edema. Will continue aggressive diuresis and fluid restriction of 1.2 L daily. (2) DOLORES (acute kidney injury): Plan: Patient with acute kidney injury with admission creatinine of 1.3 from a baseline of 0.7. Creatinine is down to 1.2. She has hypokalemia. This is due to cardiorenal syndrome. Will continue diuretics and monitor renal function with daily BMP. Will avoid nephrotoxins such as contrast. Will give potassium chloride 40 baylee equivalents 3 times daily. (3) Acute diastolic (congestive) heart failure: Plan: Patient with over 20 pound weight gain in the past 1 month. Will continue IV Lasix to 100 mg twice daily with goal of making her net negative at least 2 L daily. Will continue Aldactone 100 mg daily and metolazone 5 mg twice daily. Admission and Anticipated Discharge Date Admission Date: May 15, 2023 Subjective Seen for volume overload. She feels a little better. She is diuresing well and was net -1.6 L yesterday. Her breathing has improved. Review of Systems 2 Review of Systems: All other systems were reviewed and negative except as noted in HPI Physical Exam 2 Physical Exam: General exam: Appears comfortable, no acute distress HEENT: Pupils are equal and reactive to light Neck: No JVD, neck is supple trachea is midline Respiratory system: Clear breath sounds bilaterally. Gastrointestinal: Abdomen is soft, massively distended, non tender, bowel sounds are present CVS: Regular rate and rhythm. No murmurs, rubs or gallops Musculoskeletal: No joint or muscle tenderness Extremities: Non tender, 2+ edema, peripheral pulses are present Neuro: Oriented, no tremors, no focal neurological deficits Skin: No rashes Results & Data Vital Signs (Past 12 Hours) Vital Signs Temp Pulse Resp BP Pulse Ox O2 Del Method 05/20/23 10:43 36.5 C 101 H 19 103/84 96 Room Air 05/20/23 08:01 36.6 C 105 H 18 120/72 97 Room Air 05/20/23 02:48 36.8 C 99 H 17 115/76 95 Room Air Laboratory Results 05/20/23 06:39 05/20/23 06:39 WBC 8.79 RBC 3.04 L MCV 88.2 MCH 29.6 MCHC 33.6 RDW Std Deviation 60.7 H RDW Coeff of Monster 19.0 H Plt Count 131 MPV 9.4 Phosphorus 3.7
[2023-05-20] MEDS ORDERED: LACTULOSE SYRUP 10 GM/15 ML BTL 960 ML PO PRN (12:46)
--- NOTE | 2023-05-20 12:48 | Hospitalist Progress Note ---
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 From chart review patient was 72 kg in March and 101 kg at presentation this time. She is being managed for the following: Decompensated Cirrhosis w/ ascites Acute on chronic diastolic heart failure Anasarca: Likely secondary to above complicated by history of liver cirrhosis. Patient presented with generalized body edema associated with shortness of breath, increase in weight noted (see above) Patient reports taking torsemide 100 mg daily since February. Patient has history of hypertensive heart disease and failure. Also with history of atrial tachycardia. Admitting CXR with pulmonary vascular congestion Admitting troponin negative. Admitting EKG with sinus tachycardia. 02/28/2023 echo: EF 65 to 70%, grade 1 diastolic dysfunction, mild concentric LVH. 05/16/23 ECHO: Ejection fraction greater than 70%, grade 1 diastolic dysfunction, no pericardial effusion. Strict I's and O's, fluid restriction 1200 mL, Michaels catheter. Nephrology on board, managing diuresis. Aladactone , metolazone and furosemide. Patient w/ continued improvement in her breathing but still with significant body wall edema. Abdominal ultrasound with small to moderate ascites. GI evaluated, appreciate recommendation. History of liver cirrhosis: No signs and symptoms of encephalopathy. Sodium levels has been reasonable. On lactulose at home, continue. Chronic hyponatremia: Admitting sodium of 133, appears stable. OP chart review w/ Na level around low 130s. Will follow. Acute renal failure: Baseline creatinine around 0.75, admitting creatinine of 1.28. Cr improving, likely secondary to cardiorenal syndrome. Nephrology on board, appreciate recs. Other chronic medical conditions: Continue with/resume home meds as and when able Hypertension, blood pressure remains a stable, patient being diuresed. Asthma, no acute symptoms, continue home inhalers DVT prophylaxis: Heparin subcu CODE STATUS: DNR/DNI Admission and Anticipated Discharge Date Admission Date: May 15, 2023 Subjective Patient was seen and examined at bedside. Patient was lying in bed, on room air, occasional nausea, able to eat ok. Had 1 bm yesterday per RN, lactulose dose increased to 3 times daily. Patient reports shortness of breath getting better. Denies abdominal pain. Pt to continue to take her lactulose. Patient denies any chest pain or dizziness. Physical Exam Physical Exam: GENERAL: Alert and oriented x3. NAD, on RA. HEENT: No pallor, no icterus. Pupils equal, round and reactive to light. Oral mucosa moist. NECK: No JVD, no neck masses. HEART: S1 and S2 heard. Regular rate and rhythm. No murmur, no gallop. RESPIRATORY SYSTEM: Normal AP diameter. No accessory muscle use. No wheezing, bb crackles. ABDOMEN: Soft, bowel sounds present, nontender, + distention. CENTRAL NERVOUS SYSTEM: No facial droop. Speech is clear. Obeys simple commands. Moves extremities. EXTREMITIES: 3 + ble edema, thigh edema, abd edema, no erythema seen. Michaels in w/ nelly urine collection. Results & Data Results & Data Vital Signs (Past 12 Hours) Vital Signs Temp Pulse Resp BP Pulse Ox O2 Del Method 05/20/23 10:43 36.5 C 101 H 19 103/84 96 Room Air 05/20/23 08:01 36.6 C 105 H 18 120/72 97 Room Air 05/20/23 02:48 36.8 C 99 H 17 115/76 95 Room Air
[2023-05-20] MEDS: ONDANSETRON INJ 2 MG/ML 2 ML VIAL IV PRN (14:47)
[2023-05-20] MEDS: ALBUMIN 25% 25 GM/100 ML VIAL IV SCH ×3 (19:46→23:07)
[2023-05-20] MEDS: LATANOPROST 0.005% OP SOLN 2.5 ML BTL OPB SCH (19:48)
[2023-05-21] MEDS: ALBUMIN 25% 25 GM/100 ML VIAL IV SCH (00:28)
[2023-05-21] MEDS: PANTOprazole 40 MG TAB PO SCH (05:57)
[2023-05-21 06:15] LABS: BUN Creatinine Ratio 20.8 (10-20); Calcium 8.6 mg/dl (8.6-10.3); Est GFR (African American) 50.1 ml/min; Est GFR (Non-African American) 43.2 ml/min; Magnesium 1.7 mg/dl (1.7-2.4); Potassium 3.6 mmol/L (3.5-5.1)
--- NOTE | 2023-05-21 08:03 | Nephrology Progress Note ---
Date of Service May 21, 2023 Assessment & Plan (1) Anasarca: Plan: Patient with over 20 pound weight gain in the past 1 month prior to admission. standing wt 05/21/23 95.9 kg. >increase frequency of IV Lasix 100 mg from twice to thrice daily with goal of making her net negative at least 2 L daily. -Will continue Aldactone 100 mg daily and metolazone 5 mg twice daily. -increased K supplement to 60 mEq tid -continue daily STANDING weight and strict I/O ordered -continue FR 1.2L daily -spot prot/creat ratio ordered for urine; admission albumin 2.2, likely in part diluted (2) DOLORES (acute kidney injury): Plan: Patient with acute kidney injury with admission creatinine of 1.3 from a baseline of 0.7. Creatinine is plateau'd 1.2-1.3. She has hypokalemia. This is due to cardiorenal syndrome. Will continue diuretics and monitor renal function with daily BMP. Will avoid nephrotoxins such as contrast. Will increase potassium chloride dose as above. (3) Acute hyponatremia: Plan: improving hypervolemic hyponatremia in the setting of decompensated cirrhosis with ascites and massive edema. Will continue aggressive diuresis and fluid restriction Admission and Anticipated Discharge Date Admission Date: May 15, 2023 Subjective very sob w/ sitting up/moving. feels edema not much changed and w/ ongoing weeping. 1.7L negative yesterday. Review of Systems 2 Review of Systems: All systems reviewed & are unremarkable except as noted in Subjective Physical Exam 2 Constitutional: well developed, + acute distress (slightly heavy breathing sitting on side of bed), + obese, + frail appearing and cooperative Eyes: EOM intact bilaterally ENMT: Ears: no external ear abnormality Nose: no external nose abnormality Mouth: + dry oral mucous membranes Neck: no nuchal rigidity Respiratory: normal respiratory effort Auscultation: + diminished lung sounds Cardiovascular: Rate/Rhythm: regular rhythm and + tachycardic Extremities: + edema (3+ to chest / to under breasts) Gastrointestinal (Abdomen): Inspection/Auscultation: normal bowel sounds P ercussion/Palpation: abdomen soft; abdomen nontender anasarca Musculoskeletal: Extremities: strength 5/5 throughout Skin: no rashes, warm and dry Neurologic: martinez, fluent speech, no tremor Psychiatric: Orientation: alert and oriented x 3 Results & Data Vital Signs (Past 12 Hours) Vital Signs Temp Pulse Pulse Resp BP Pulse Ox O2 Del Method 05/21/23 02:56 36.9 C 94 H 20 129/73 91 Room Air 05/20/23 22:56 99 H 05/20/23 22:52 36.8 C 99 H 20 145/86 H 93 Room Air 05/20/23 22:14 101 H 19 94 Room Air 05/20/23 20:40 Room Air Laboratory Results 05/20/23 06:39 05/21/23 05:25
[2023-05-21] MEDS: FUROSEMIDE 10 MG/ML 10 ML VIAL IV SCH ×3 (08:09→21:16)
[2023-05-21] MEDS: CALCIUM 600MG + VIT D 400 IU TAB PO SCH ×2 (08:09→21:17)
[2023-05-21] MEDS: POT PHOSPHATE MONOBASIC W/ SOD TAB PO SCH ×2 (08:09→21:17)
[2023-05-21] MEDS: ARTIFICIAL TEARS OP SCH (08:09)
[2023-05-21] MEDS: SPIRONOLACTONE 100 MG TAB PO SCH (08:10)
[2023-05-21] MEDS: MONTELUKAST SODIUM 10 MG TABLET PO SCH (08:10)
[2023-05-21] MEDS: FLUTICASONE FUROATE 200MCG 14 PUFFS/INHALER INH SCH (08:10)
[2023-05-21] MEDS: HEPARIN SOD 5,000 UNIT/0.5 ML VIAL SQ SCH ×2 (08:11→21:17)
[2023-05-21] MEDS: metOLazone 5 MG TABLET PO SCH ×2 (08:11→16:28)
[2023-05-21] MEDS: LACTOBACILLUS ACIDOPHILUS 1 GM PACK PO SCH (08:11)
[2023-05-21] MEDS ORDERED: LACTULOSE SYRUP 10 GM/15 ML BTL 960 ML PO SCH (09:00)
[2023-05-21] MEDS: POTASSIUM CHLORIDE CRTAB 20 MEQ TABCR PO SCH ×3 (09:12→21:16)
[2023-05-21] MEDS: ACETAMINOPHEN 325 MG TAB PO PRN (13:16)
--- NOTE | 2023-05-21 13:21 | Hospitalist Progress Note ---
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 From chart review patient was 72 kg in March and 101 kg at presentation this time. She is being managed for the following: Decompensated Cirrhosis w/ ascites Acute on chronic diastolic heart failure Anasarca: Likely secondary to above complicated by history of liver cirrhosis. Patient presented with generalized body edema associated with shortness of breath, increase in weight noted (see above) Patient reports taking torsemide 100 mg daily since February. Patient has history of hypertensive heart disease and failure. Also with history of atrial tachycardia. Admitting CXR with pulmonary vascular congestion Admitting troponin negative. Admitting EKG with sinus tachycardia. 02/28/2023 echo: EF 65 to 70%, grade 1 diastolic dysfunction, mild concentric LVH. 05/16/23 ECHO: Ejection fraction greater than 70%, grade 1 diastolic dysfunction, no pericardial effusion. Strict I's and O's, fluid restriction 1200 mL, Michaels catheter. Nephrology on board, managing diuresis. Aladactone , metolazone and furosemide. Electrolytes being monitored and replaced. Patient w/ continued improvement in her breathing but still with significant body edema. Abdominal ultrasound with small to moderate ascites. GI evaluated, appreciate recommendation. History of liver cirrhosis: No signs and symptoms of encephalopathy. Sodium levels has been reasonable. On lactulose at home, continue. Chronic hyponatremia: Admitting sodium of 133, appears stable. OP chart review w/ Na level around low 130s. Will follow. Acute renal failure: Baseline creatinine around 0.75, admitting creatinine of 1.28. Cr plateued around 1.2, likely secondary to cardiorenal syndrome. Nephrology on board, appreciate recs. Other chronic medical conditions: Continue with/resume home meds as and when able Hypertension, blood pressure remains a stable, patient being diuresed. Asthma, no acute symptoms, continue home inhalers DVT prophylaxis: Heparin subcu CODE STATUS: DNR/DNI Admission and Anticipated Discharge Date Admission Date: May 15, 2023 Subjective Patient was seen and examined at bedside. Patient was lying in bed, on room air, able to eat ok. Had 2 bm today per pt, lactulose dose 3 times daily. Patient reports shortness of breath getting better. Denies abdominal pain. Pt to continue to take her lactulose w/ goal of 3-4 bowels a day. Patient denies any chest pain or dizziness. Physical Exam Physical Exam: GENERAL: Alert and oriented x3. NAD, on RA. HEENT: No pallor, no icterus. Pupils equal, round and reactive to light. Oral mucosa moist. NECK: No JVD, no neck masses. HEART: S1 and S2 heard. Regular rate and rhythm. No murmur, no gallop. RESPIRATORY SYSTEM: Normal AP diameter. No accessory muscle use. No wheezing, bb crackles. ABDOMEN: Soft, bowel sounds present, nontender, + distention. CENTRAL NERVOUS SYSTEM: No facial droop. Speech is clear. Obeys simple commands. Moves extremities. EXTREMITIES: 3 + ble edema, thigh edema, abd edema, no erythema seen. Michaels in w/ nelly urine collection. Results & Data Results & Data Vital Signs (Past 12 Hours) Vital Signs Temp Pulse Pulse Resp BP Pulse Ox O2 Del Method 05/21/23 12:02 36.4 C L 107 H 18 110/67 98 Room Air 05/21/23 08:18 36.6 C 100 H 23 113/68 95 Room Air 05/21/23 08:00 98 H 05/21/23 08:00 Room Air 05/21/23 02:56 36.9 C 94 H 20 129/73 91 Room Air
[2023-05-21] MEDS: ONDANSETRON INJ 2 MG/ML 2 ML VIAL IV PRN (16:28)
[2023-05-21 17:10] LABS: Creatinine Urine Random 17.8 mg/dl; Protein Creatinine Ratio Urine 0.7 (0-0.2); Total Protein Urine Random 11.9 mg/dl (0-11.9)
[2023-05-21] MEDS ORDERED: PROMETHAZINE HCL 12.5 MG in SODIUM CHLORIDE 0.9% 50 ML IV STA (19:42)
[2023-05-21] MEDS: LATANOPROST 0.005% OP SOLN 2.5 ML BTL OPB SCH (21:16)
[2023-05-22] MEDS: PANTOprazole 40 MG TAB PO SCH (05:41)
[2023-05-22 08:42] LABS: BUN Creatinine Ratio 19.4 (10-20); Calcium 8.7 mg/dl (8.6-10.3); Creatinine Clr Calc Pharmacy 43.1 ml/min; Est GFR (African American) 50.6 ml/min; Est GFR (Non-African American) 43.7 ml/min; Magnesium 1.5 mg/dl (1.7-2.4); Potassium 4.3 mmol/L (3.5-5.1)
[2023-05-22] MEDS: LACTOBACILLUS ACIDOPHILUS 1 GM PACK PO SCH (08:51)
[2023-05-22] MEDS: ARTIFICIAL TEARS OP SCH (08:51)
[2023-05-22] MEDS: FLUTICASONE FUROATE 200MCG 14 PUFFS/INHALER INH SCH (08:51)
[2023-05-22] MEDS: POTASSIUM CHLORIDE CRTAB 20 MEQ TABCR PO SCH ×2 (08:52→20:11)
[2023-05-22] MEDS: metOLazone 5 MG TABLET PO SCH ×2 (08:52→16:23)
[2023-05-22] MEDS: MONTELUKAST SODIUM 10 MG TABLET PO SCH (08:52)
[2023-05-22] MEDS: CALCIUM 600MG + VIT D 400 IU TAB PO SCH ×2 (08:53→20:11)
[2023-05-22] MEDS: FUROSEMIDE 10 MG/ML 10 ML VIAL IV SCH ×3 (08:53→20:11)
[2023-05-22] MEDS: HEPARIN SOD 5,000 UNIT/0.5 ML VIAL SQ SCH ×2 (08:54→20:13)
--- NOTE | 2023-05-22 09:43 | Nephrology Progress Note ---
Date of Service May 22, 2023 Assessment & Plan (1) Anasarca: Plan: Patient with over 20 pound weight gain in the past 1 month prior to admission. standing wt 05/21/23 95.9 kg, to 92.3 on 05/22. >continue IV Lasix 100 mg 3X with goal of making her net negative at least 2 L daily. -Will continue Aldactone 100 mg daily and metolazone 5 mg twice daily. -lowered K supplement to 60 mEq bid for now -continue daily STANDING weight and strict I/O ordered -continue FR 1.2L daily (2) DOLORES (acute kidney injury): Plan: Patient with acute kidney injury with admission creatinine of 1.3 from a baseline of 0.7. Creatinine is plateau'd 1.2-1.3. She has hypokalemia. This is due to cardiorenal syndrome. 700 mg proteinuria on eval; albumin 2.2 on admission likely diluted. Will continue diuretics and monitor renal function with daily BMP. Will avoid nephrotoxins such as contrast. MOdified potassium chloride dose as above. (3) Acute hyponatremia: Plan: improving hypervolemic hyponatremia in the setting of decompensated cirrhosis with ascites and massive edema. Will continue aggressive diuresis and fluid restriction Admission and Anticipated Discharge Date Admission Date: May 15, 2023 Subjective breathing improved but still some exertional dyspnea; edema less taut; c/o diffuse abdominal pain w/ moderate palpation Review of Systems 2 Review of Systems: All systems reviewed & are unremarkable except as noted in Subjective Physical Exam 2 Constitutional: well developed, + obese, + frail appearing and cooperative; no acute distress Eyes: EOM intact bilaterally ENMT: Ears: no external ear abnormality Nose: no external nose abnormality Mouth: + dry oral mucous membranes Neck: no nuchal rigidity Respiratory: + labored breathing, able to speak in co mplete sentences and + tachypneic Auscultation: + diminished lung sounds Cardiovascular: Rate/Rhythm: regular rhythm and + tachycardic Extremities: + edema (3+ to chest / to under breasts) Gastrointestinal (Abdomen): Inspection/Auscultation: normal bowel sounds P ercussion/Palpation: + abdomen tender (RUQ, periumbilical lalo on L) and abdomen soft; no ascites Musculoskeletal: Extremities: strength 5/5 throughout Skin: no rashes, warm and dry Neurologic: tremor + Psychiatric: Orientation: alert and oriented x 3 Results & Data Vital Signs (Past 12 Hours) Vital Signs Temp Pulse Resp BP Pulse Ox O2 Del Method 05/22/23 07:36 37.1 C 106 H 18 108/68 93 Room Air 05/22/23 03:00 37.5 C 78 20 109/79 94 Room Air 05/21/23 22:21 37.2 C 98 H 20 122/78 94 Room Air Laboratory Results 05/20/23 06:39 05/22/23 08:02
[2023-05-22] MEDS: SPIRONOLACTONE 100 MG TAB PO SCH (10:06)
[2023-05-22] MEDS: POT PHOSPHATE MONOBASIC W/ SOD TAB PO SCH ×2 (10:06→20:11)
[2023-05-22] MEDS: MAGNESIUM SULFATE / D5W 1 GM/100 ML BAG IV SCH ×2 (10:49→12:32)
--- NOTE | 2023-05-22 14:35 | Hospitalist Progress Note ---
Date of Service May 22, 2023 Assessment & Plan (1) Acute diastolic (congestive) heart failure: Plan 73-year-old lady with PMH of liver cirrhosis, COPD, hypertensive heart disease with heart failure, T2DM, paroxysmal atrial tachycardia, HTN, HLD, GERD, primary open-angle glaucoma presented to the ED 05/15 with complaint of increasing swelling of the legs and abdomen associated with exertional shortness of breath for the last 3 to 4 weeks [employer]. She reports taking torsemide 100 mg daily since February and has not shown any improvement of the edema. From chart review patient was 72 kg in March and 101 kg at presentation this time. She is being managed for the following: Decompensated Cirrhosis w/ ascites Acute on chronic diastolic heart failure Anasarca: Likely secondary to above complicated by history of liver cirrhosis. Patient presented with generalized body edema associated with shortness of breath, increase in weight noted (see above) Patient reports taking torsemide 100 mg daily since February. Patient has history of hypertensive heart disease and failure. Also with history of atrial tachycardia. Admitting CXR with pulmonary vascular congestion Admitting troponin negative. Admitting EKG with sinus tachycardia. 02/28/2023 echo: EF 65 to 70%, grade 1 diastolic dysfunction, mild concentric LVH. 05/16/23 ECHO: Ejection fraction greater than 70%, grade 1 diastolic dysfunction, no pericardial effusion. Strict I's and O's, fluid restriction 1200 mL, Michaels catheter. Nephrology on board, managing diuresis. Aladactone , metolazone and furosemide. Electrolytes being monitored and replaced. Patient w/ continued improvement in her breathing but still with significant body edema. Abdominal ultrasound with small to moderate ascites. GI evaluated, appreciate recommendation. History of liver cirrhosis: No signs and symptoms of encephalopathy. Sodium levels has been reasonable. On lactulose at home, continue. Chronic hyponatremia: Admitting sodium of 133, appears stable. OP chart review w/ Na level around low 130s. Will follow. Acute renal failure: Baseline creatinine around 0.75, admitting creatinine of 1.28. Cr plateued around 1.2, likely secondary to cardiorenal syndrome. Nephrology on board, appreciate recs. Other chronic medical conditions: Continue with/resume home meds as and when able Hypertension, blood pressure remains a stable, patient being diuresed. Asthma, no acute symptoms, continue home inhalers DVT prophylaxis: Heparin subcu CODE STATUS: DNR/DNI Admission and Anticipated Discharge Date Admission Date: May 15, 2023 Subjective Patient was seen and examined at bedside. Patient was lying in bed, on room air, able to eat ok. Had many bm yesterday per pt, lactulose dose 3 times daily w/ a goal of 3-4 bms a day. Patient continues to report shortness of breath getting better. Denies abdominal pain. Pt to continue to take her lactulose w/ goal of 3-4 bowels a day. Patient denies any chest pain or dizziness. Physical Exam Physical Exam: GENERAL: Alert and oriented x3. NAD, on RA. HEENT: No pallor, no icterus. Pupils equal, round and reactive to light. Oral mucosa moist. NECK: No JVD, no neck masses. HEART: S1 and S2 heard. Regular rate and rhythm. No murmur, no gallop. RESPIRATORY SYSTEM: Normal AP diameter. No accessory muscle use. No wheezing, bb crackles. ABDOMEN: Soft, bowel sounds present, nontender, + distention. CENTRAL NERVOUS SYSTEM: No facial droop. Speech is clear. Obeys simple commands. Moves extremities. EXTREMITIES: 3 + ble edema, thigh edema, abd edema, no erythema seen. Michaels in w/ nelly urine collection. Results & Data Results & Data Vital Signs (Past 12 Hours) Vital Signs Temp Pulse Pulse Resp BP Pulse Ox O2 Del Method 05/22/23 10:49 37.1 C 101 H 19 137/71 94 Room Air 05/22/23 09:00 101 H 05/22/23 09:00 Room Air 05/22/23 07:36 37.1 C 106 H 18 108/68 93 Room Air 05/22/23 03:00 37.5 C 78 20 109/79 94 Room Air
[2023-05-22] MEDS: LATANOPROST 0.005% OP SOLN 2.5 ML BTL OPB SCH (20:12)
[2023-05-23] MEDS: PANTOprazole 40 MG TAB PO SCH (05:53)
[2023-05-23 07:09] LABS: BUN Creatinine Ratio 19.5 (10-20); Calcium 8.6 mg/dl (8.6-10.3); Creatinine Clr Calc Pharmacy 42.4 ml/min; Est GFR (African American) 51.1 ml/min; Est GFR (Non-African American) 44.1 ml/min; Magnesium 1.6 mg/dl (1.7-2.4); Potassium 4.5 mmol/L (3.5-5.1)
[2023-05-23] MEDS: FUROSEMIDE 10 MG/ML 10 ML VIAL IV SCH ×3 (08:34→20:52)
[2023-05-23] MEDS: metOLazone 5 MG TABLET PO SCH ×2 (08:34→17:00)
[2023-05-23] MEDS: MONTELUKAST SODIUM 10 MG TABLET PO SCH (08:34)
[2023-05-23] MEDS: CALCIUM 600MG + VIT D 400 IU TAB PO SCH ×2 (08:34→20:53)
[2023-05-23] MEDS: ARTIFICIAL TEARS OP SCH (08:34)
[2023-05-23] MEDS: MAGNESIUM SULFATE / D5W 1 GM/100 ML BAG IV SCH ×2 (08:34→11:02)
[2023-05-23] MEDS: FLUTICASONE FUROATE 200MCG 14 PUFFS/INHALER INH SCH (08:35)
[2023-05-23] MEDS: HEPARIN SOD 5,000 UNIT/0.5 ML VIAL SQ SCH ×2 (08:36→20:52)
[2023-05-23] MEDS: LACTOBACILLUS ACIDOPHILUS 1 GM PACK PO SCH (08:36)
[2023-05-23] MEDS: POTASSIUM CHLORIDE CRTAB 20 MEQ TABCR PO SCH ×2 (08:36→20:52)
[2023-05-23] MEDS: SPIRONOLACTONE 100 MG TAB PO SCH (08:36)
[2023-05-23] MEDS: POT PHOSPHATE MONOBASIC W/ SOD TAB PO SCH ×2 (08:36→20:53)
[2023-05-23] MEDS: ONDANSETRON INJ 2 MG/ML 2 ML VIAL IV PRN (11:44)
--- NOTE | 2023-05-23 11:44 | Nephrology Progress Note ---
Date of Service May 23, 2023 Assessment & Plan Admission and Anticipated Discharge Date Admission Date: May 15, 2023 Subjective Assessment & Plan (1) Anasarca: Plan: Patient with over 20 pound weight gain in the past 1 month prior to admission. standing wt 05/21/23 95.9 kg, to 92.3 on 05/22. continue IV Lasix 100 mg 3X Aldactone 100 mg daily and metolazone 5 mg twice daily. lower K supplement to 20 mEq bid for now. K has gone up nicely and is now 4.5 -continue daily STANDING weight and strict I/O ordered -continue FR 1.2L daily (2) DOLORES (acute kidney injury): Plan: Patient with acute kidney injury with admission creatinine of 1.3 from a baseline of 0.7. Creatinine is plateau'd 1.2-1.3. Will continue diuretics and monitor renal function with daily BMP. Will avoid nephrotoxins such as contrast. (3) Acute hyponatremia: Plan: improving hypervolemic hyponatremia in the setting of decompensated cirrhosis with ascites and massive edema. Will continue aggressive diuresis and fluid restriction. na 135 now Subjective breathing improved but still some exertional dyspnea; edema less but still has a lot. 5175 ml urine yesterday on triple diuretic therpay ( high dose) . Review of Systems Review of Systems: All systems reviewed & are unremarkable except as noted in Subjective Physical Exam Constitutional: well developed, + obese, + frail appearing and cooperative; no acute distress Eyes: EOM intact bilaterally ENMT: Ears: no external ear abnormality Nose: no external nose abnormality Mouth: + dry oral mucous membranes Neck: no nuchal rigidity Respiratory: + labored breathing, able to speak in co mplete sentences and + tachypneic Auscultation: + diminished lung sounds Cardiovascular: Rate/Rhythm: regular rhythm and + tachycardic Extremities: + edema (3+ to chest / to under breasts) Gastrointestinal (Abdomen): Inspection/Auscultation: normal bowel sounds Percussion/Palpation: + abdomen tender (RUQ, periumbilical lalo on L) and abdomen soft; no ascites Musculoskeletal: Extremities: strength 5/5 throughout Skin: no rashes, warm and dry Neurologic: tremor + Psychiatric: Orientation: alert and oriented x 3 Results & Data Vital Signs (Past 12 Hours) Vital Signs Temp Pulse Pulse Resp BP Pulse Ox O2 Del Method 05/23/23 09:01 95 H 05/23/23 08:00 Room Air 05/23/23 07:31 36.6 C 99 H 18 137/55 L 93 Room Air 05/23/23 03:08 37.6 C H 99 H 18 116/58 L 95 Room Air
[2023-05-23] MEDS ORDERED: LACTULOSE SYRUP 10 GM/15 ML BTL 960 ML PO PRN (12:54)
--- NOTE | 2023-05-23 15:19 | Hospitalist Progress Note ---
Date of Service May 23, 2023 Assessment & Plan (1) Acute diastolic (congestive) heart failure: Plan 73-year-old lady with PMH of liver cirrhosis, COPD, hypertensive heart disease with heart failure, T2DM, paroxysmal atrial tachycardia, HTN, HLD, GERD, primary open-angle glaucoma presented to the ED 05/15 with complaint of increasing swelling of the legs and abdomen associated with exertional shortness of breath for the last 3 to 4 weeks [employer]. She reports taking torsemide 100 mg daily since February and has not shown any improvement of the edema. From chart review patient was 72 kg in March and 101 kg at presentation this time. She is being managed for the following: Decompensated Cirrhosis w/ ascites Acute on chronic diastolic heart failure Anasarca: Likely secondary to above complicated by history of liver cirrhosis. Patient presented with generalized body edema associated with shortness of breath, increase in weight noted (see above) Patient reports taking torsemide 100 mg daily since February. Patient has history of hypertensive heart disease and failure. Also with history of atrial tachycardia. Admitting CXR with pulmonary vascular congestion Admitting troponin negative. Admitting EKG with sinus tachycardia. 02/28/2023 echo: EF 65 to 70%, grade 1 diastolic dysfunction, mild concentric LVH. 05/16/23 ECHO: Ejection fraction greater than 70%, grade 1 diastolic dysfunction, no pericardial effusion. Strict I's and O's, fluid restriction 1200 mL, Michaels catheter. Nephrology on board, managing diuresis. Aladactone , metolazone and furosemide. Electrolytes being monitored and replaced. Patient w/ continued improvement in her breathing but still with significant body edema. Abdominal ultrasound with small to moderate ascites. GI evaluated, appreciate recommendation. History of liver cirrhosis: No signs and symptoms of encephalopathy. Sodium levels has been reasonable. On lactulose at home, continue. Chronic hyponatremia: Admitting sodium of 133, appears stable. OP chart review w/ Na level around low 130s. Will follow. Acute renal failure: Baseline creatinine around 0.75, admitting creatinine of 1.28. Cr plateued around 1.2, likely secondary to cardiorenal syndrome. Nephrology on board, appreciate recs. Other chronic medical conditions: Continue with/resume home meds as and when able Hypertension, blood pressure remains a stable, patient being diuresed. Asthma, no acute symptoms, continue home inhalers DVT prophylaxis: Heparin subcu CODE STATUS: DNR/DNI Admission and Anticipated Discharge Date Admission Date: May 15, 2023 Subjective Patient was seen and examined at bedside. Patient was lying in bed, on room air, able to eat ok. Has been having good BM per pt, lactulose dose 3 times daily w/ a goal of 3-4 bms a day. Reports significant improvement in her shortness of breath. Denies abdominal pain. Pt to continue to take her lactulose w/ goal of 3-4 bowels a day. Patient denies any chest pain or dizziness. Patient reports history of chronic nausea, has been having occasional nausea while in hospital. Utilize as needed Zofran. Physical Exam Physical Exam: GENERAL: Alert and oriented x3. NAD, on RA. HEENT: No pallor, no icterus. Pupils equal, round and reactive to light. Oral mucosa moist. NECK: No JVD, no neck masses. HEART: S1 and S2 heard. Regular rate and rhythm. No murmur, no gallop. RESPIRATORY SYSTEM: Normal AP diameter. No accessory muscle use. No wheezing, bb crackles. ABDOMEN: Soft, bowel sounds present, nontender, + distention. CENTRAL NERVOUS SYSTEM: No facial droop. Speech is clear. Obeys simple commands. Moves extremities. EXTREMITIES: 3 + ble edema, thigh edema, abd edema, no erythema seen. Michaels in w/ nelly urine collection. Results & Data Results & Data Vital Signs (Past 12 Hours) Vital Signs Temp Pulse Pulse Resp BP Pulse Ox O2 Del Method 05/23/23 12:45 36.4 C L 106 H 18 113/72 94 Room Air 05/23/23 09:01 95 H 05/23/23 08:00 Room Air 05/23/23 07:31 36.6 C 99 H 18 137/55 L 93 Room Air
[2023-05-23] MEDS: LATANOPROST 0.005% OP SOLN 2.5 ML BTL OPB SCH (20:53)
[2023-05-23] MEDS ORDERED: POTASSIUM CHLORIDE CRTAB 20 MEQ TABCR PO SCH (21:00)
[2023-05-24 06:14] LABS: Hemoglobin 7.7 g/dl (12.0-16.0); Mean Corpuscular Hemoglobin 29.5 pg (25.0-34.0); Mean Corpuscular Hgb Conc 32.1 g/dL (32.0-36.0); Mean Platelet Volume 9.7 fL (9.4-12.4); Platelet Count 107 K/uL (130-400); RDW Coefficient of Variation 20.1 % (11.5-14.5); RDW Standard Deviation 66.7 fL (36.4-46.3); Red Blood Count 2.61 M/uL (4.20-5.40); White Blood Count 8.99 K/ul (4.8-10.8)
[2023-05-24 07:15] LABS: BUN Creatinine Ratio 18.5 (10-20); Calcium 8.4 mg/dl (8.6-10.3); Creatinine Clr Calc Pharmacy 43.8 ml/min; Est GFR (African American) 53.2 ml/min; Est GFR (Non-African American) 45.9 ml/min; Magnesium 1.6 mg/dl (1.7-2.4); Phosphorus 3.6 mg/dl (2.5-4.9); Potassium 4.1 mmol/L (3.5-5.1)
[2023-05-24] MEDS: ARTIFICIAL TEARS OP SCH (08:30)
[2023-05-24] MEDS: FLUTICASONE FUROATE 200MCG 14 PUFFS/INHALER INH SCH (08:31)
[2023-05-24] MEDS: HEPARIN SOD 5,000 UNIT/0.5 ML VIAL SQ SCH ×2 (08:31→20:55)
[2023-05-24] MEDS: POT PHOSPHATE MONOBASIC W/ SOD TAB PO SCH ×2 (08:31→20:55)
[2023-05-24] MEDS: FUROSEMIDE 10 MG/ML 10 ML VIAL IV SCH ×3 (08:31→20:54)
[2023-05-24] MEDS: CALCIUM 600MG + VIT D 400 IU TAB PO SCH ×2 (08:31→20:55)
[2023-05-24] MEDS: LACTOBACILLUS ACIDOPHILUS 1 GM PACK PO SCH (08:32)
[2023-05-24] MEDS: POTASSIUM CHLORIDE CRTAB 20 MEQ TABCR PO SCH ×2 (08:32→20:55)
[2023-05-24] MEDS: SPIRONOLACTONE 100 MG TAB PO SCH (08:32)
[2023-05-24] MEDS: MONTELUKAST SODIUM 10 MG TABLET PO SCH (08:32)
[2023-05-24] MEDS: metOLazone 5 MG TABLET PO SCH ×2 (08:32→16:42)
[2023-05-24] MEDS: PANTOprazole 40 MG TAB PO SCH (08:32)
--- NOTE | 2023-05-24 10:29 | Nephrology Progress Note ---
Date of Service May 24, 2023 Assessment & Plan Admission and Anticipated Discharge Date Admission Date: May 15, 2023 Subjective Assessment & Plan (1) Anasarca: Plan: Patient with over 20 pound weight gain in the past 1 month prior to admission. standing wt 05/21/23 95.9 kg, to 92.3 on 05/22. continue IV Lasix 100 mg 3X Aldactone 100 mg daily and metolazone 5 mg twice daily. Labs are stable and we are making major headway with her fluid overload so no need to stop. K supplement 20 mEq bid for now. K normal -continue daily STANDING weight and strict I/O ordered -continue FR 1.2L daily (2) DOLORES (acute kidney injury): Plan: Patient with acute kidney injury with admission creatinine of 1.3 from a baseline of 0.7. Creatinine is plateau'd 1.2-1.3. Will continue diuretics and monitor renal function with daily BMP. Will avoid nephrotoxins such as contrast. Creat slowly improving. (3) Acute hyponatremia: Plan: improving hypervolemic hyponatremia in the setting of decompensated cirrhosis with ascites and massive edema. Will continue aggressive diuresis and fluid restriction. na 134 now Subjective breathing improved but still weak. edema less. Urine was 2600 ml yesterday and 5175 ml urine the day prior on triple diuretic therapy ( high dose) . Review of Systems Review of Systems: All systems reviewed & are unremarkable except as noted in Subjective Physical Exam Constitutional: well developed, + obese, + frail appearing and cooperative; no acute distress Eyes: EOM intact bilaterally ENMT: Ears: no external ear abnormality Nose: no external nose abnormality Mouth: + dry oral mucous membranes Neck: no nuchal rigidity Respiratory: + labored breathing, able to speak in co mplete sentences and + tachypneic Auscultation: + diminished lung sounds Cardiovascular: Rate/Rhythm: regular rhythm and + tachycardic Extremities: + edema (3+ to chest / to under breasts) Gastrointestinal (Abdomen): Inspection/Auscultation: normal bowel sounds Percussion/Palpation: + abdomen tender (RUQ, periumbilical lalo on L) and abdomen soft; no ascites Musculoskeletal: Extremities: strength 5/5 throughout Skin: no rashes, warm and dry Neurologic: tremor + Psychiatric: Orientation: alert and oriented x 3 Results & Data Vital Signs (Past 12 Hours) Vital Signs Temp Pulse Resp BP Pulse Ox O2 Del Method 05/24/23 08:00 Room Air 05/24/23 07:11 36.6 C 98 H 18 121/62 93 Room Air 05/24/23 03:00 36.6 C 106 H 14 105/75 97 Room Air 05/23/23 23:00 36.8 C 105 H 16 122/82 93 Room Air
[2023-05-24] MEDS: MAGNESIUM OXIDE 400 MG TAB PO SCH ×2 (11:21→20:55)
--- NOTE | 2023-05-24 13:28 | Hospitalist Progress Note ---
Date of Service May 24, 2023 Assessment & Plan (1) Acute diastolic (congestive) heart failure: Plan 73-year-old lady with PMH of liver cirrhosis, COPD, hypertensive heart disease with heart failure, T2DM, paroxysmal atrial tachycardia, HTN, HLD, GERD, primary open-angle glaucoma presented to the ED 05/15 with complaint of increasing swelling of the legs and abdomen associated with exertional shortness of breath for the last 3 to 4 weeks [employer]. She reports taking torsemide 100 mg daily since February and has not shown any improvement of the edema. From chart review patient was 72 kg in March and 101 kg at presentation this time. She is being managed for the following: Decompensated Cirrhosis w/ ascites Acute on chronic diastolic heart failure Anasarca: Likely secondary to above complicated by history of liver cirrhosis. Patient presented with generalized body edema associated with shortness of breath, increase in weight noted (see above) Patient reports taking torsemide 100 mg daily since February. Patient has history of hypertensive heart disease and failure. Also with history of atrial tachycardia. Admitting CXR with pulmonary vascular congestion Admitting troponin negative. Admitting EKG with sinus tachycardia. 02/28/2023 echo: EF 65 to 70%, grade 1 diastolic dysfunction, mild concentric LVH. 05/16/23 ECHO: Ejection fraction greater than 70%, grade 1 diastolic dysfunction, no pericardial effusion. Strict I's and O's, fluid restriction 1200 mL, Michaels catheter. Nephrology on board, managing diuresis. Aladactone , metolazone and furosemide. Electrolytes being monitored and replaced. Patient w/ continued improvement in her breathing, anasarca improving. Abdominal ultrasound with small to moderate ascites. GI evaluated, appreciate recommendation. History of liver cirrhosis: No signs and symptoms of encephalopathy. Sodium levels has been reasonable. On lactulose at home, continue. Chronic hyponatremia: Admitting sodium of 133, appears stable. OP chart review w/ Na level around low 130s. Will follow. Acute renal failure: Baseline creatinine around 0.75, admitting creatinine of 1.28. Cr plateaued around 1.2, likely secondary to cardiorenal syndrome. Nephrology on board, appreciate recs. Other chronic medical conditions: Continue with/resume home meds as and when able Hypertension, blood pressure remains a stable, patient being diuresed. Asthma, no acute symptoms, continue home inhalers DVT prophylaxis: Heparin subcu CODE STATUS: DNR/DNI Admission and Anticipated Discharge Date Admission Date: May 15, 2023 Subjective Patient was seen and examined at bedside. Patient was lying in bed, on room air, able to eat ok. Has been having good BM per pt, lactulose dose 3 times daily w/ a goal of 3-4 bms a day. Reports significant improvement in her shortness of breath. Denies abdominal pain. Today she wants to be discharged, pt explained she still has lots of fluid retention and will need iv diuresis, not yet ready to dc. pt voiced understanding. Pt to continue to take her lactulose w/ goal of 3-4 bowels a day. Patient denies any chest pain or dizziness. Patient reports history of chronic nausea, has been having occasional nausea while in hospital. Utilize as needed Zofran. Physical Exam Physical Exam: GENERAL: Alert and oriented x3. NAD, on RA. HEENT: No pallor, no icterus. Pupils equal, round and reactive to light. Oral mucosa moist. NECK: No JVD, no neck masses. HEART: S1 and S2 heard. Regular rate and rhythm. No murmur, no gallop. RESPIRATORY SYSTEM: Normal AP diameter. No accessory muscle use. No wheezing, bb crackles. ABDOMEN: Soft, bowel sounds present, nontender, + distention. CENTRAL NERVOUS SYSTEM: No facial droop. Speech is clear. Obeys simple commands. Moves extremities. EXTREMITIES: 3 + ble edema, thigh edema improving, abd edema improving, no erythema seen. Michaels in w/ nelly urine collection. Results & Data Results & Data Vital Signs (Past 12 Hours) Vital Signs Temp Pulse Resp BP Pulse Ox O2 Del Method 05/24/23 11:17 36.5 C 104 H 18 105/63 96 Room Air 05/24/23 08:00 Room Air 05/24/23 07:11 36.6 C 98 H 18 121/62 93 Room Air 05/24/23 03:00 36.6 C 106 H 14 105/75 97 Room Air
[2023-05-24] MEDS ORDERED: FUROSEMIDE 40 MG/4 ML VIAL IV SCH (14:00)
[2023-05-24 14:45] LABS: Hematocrit (blood only) 24.3 % (37.0-47.0)
[2023-05-24] MEDS: LATANOPROST 0.005% OP SOLN 2.5 ML BTL OPB SCH (20:55)
[2023-05-25] MEDS: PANTOprazole 40 MG TAB PO SCH (06:39)
[2023-05-25 07:22] LABS: Hematocrit (blood only) 25.5 % (37.0-47.0); Hemoglobin 8.4 g/dl (12.0-16.0); Mean Corpuscular Hemoglobin 29.8 pg (25.0-34.0); Mean Corpuscular Hgb Conc 32.9 g/dL (32.0-36.0); Mean Corpuscular Volume 90.4 fL (80.0-100.0); Mean Platelet Volume 9.6 fL (9.4-12.4); Platelet Count 132 K/uL (130-400); RDW Coefficient of Variation 20.4 % (11.5-14.5); RDW Standard Deviation 67.1 fL (36.4-46.3); Red Blood Count 2.82 M/uL (4.20-5.40)
--- NOTE | 2023-05-25 07:27 | Hospitalist Progress Note ---
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 She reports taking torsemide 100 mg daily since February and has not shown any improvement of the edema. From chart review patient was 72 kg in March and 101 kg at presentation this time. She is being managed for the following: Patient presented with generalized body edema associated with shortness of breath, increase in weight noted (see above) Admitting troponin negative. Admitting EKG with sinus tachycardia. Strict I's and O's, fluid restriction 1200 mL, Michaels catheter. Nephrology on board, managing diuresis. -Currently receiving 100mg lasix TID IV, 100mg Aladactone , metolatzone 5mg BID -Continue to trend lytes and replace Patient w/ continued improvement in her breathing, anasarca improving. Abdominal ultrasound with small to moderate ascites. GI evaluated, appreciate recommendation. 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 - History of decompensation w/ ascites, HE Patient reports taking torsemide 100 mg daily since February. Patient has history of hypertensive heart disease and failure. Also with history of atrial tachycardia. Admitting CXR with pulmonary vascular congestion 02/28/2023 echo: EF 65 to 70%, grade 1 diastolic dysfunction, mild concentric LVH. 05/16/23 ECHO: Ejection fraction greater than 70%, grade 1 diastolic dysfunction, no pericardial effusion. - MELD-Na:17 on admission -Follows Dr. Blankenship - PSE: No evidence of HE on exam, c/w lactulose (titrated to 3-4BM / day) - Ascites: c/w current diuresis guided by Nephro -No pocket for paracentesis, body wall edema greater than free fluid per GI on 05/17 - EV: No evidence of GIB presently, close monitoring - Will obtain Daily CMP + INR to calculate MELD; low Na diet - GI consulted, lasted evaluated 05/17 -Nephrology following: -continue metolazone 5mg BID, LASIX 100mg TID, and spironolactone 100mg -Appreciate continued recommendations #Chronic hyponatremia: Admitting sodium of 133, appears stable. OP chart review w/ Na level around low 130s. Will follow. #Acute renal failure: Baseline creatinine around 0.75, admitting creatinine of 1.28. Cr plateaued around 1.2, likely secondary to cardiorenal syndrome. Nephrology on board, appreciate recs. #Chronic normocytic anemia -appears to be lower than baseline, perhaps in setting of fluid overload Obtain anemia labs to optimize if able Other chronic medical conditions: Continue with/resume home meds as and when able Hypertension, blood pressure remains a stable, patient being diuresed. Asthma, no acute symptoms, continue home inhalers DVT prophylaxis: Heparin subcu CODE STATUS: DNR/DNI Admission and Anticipated Discharge Date Admission Date: May 15, 2023 Subjective Patient evaluated this morning at bedside. Reports feeling tired and wishes she could return to [facility]. She states she is just exhausted with some nausea, but otherwise feels no worse. She states she is trying to eat today, but didn't feel much of an appetite this morning She denies feeling chills, fevers, vomiting or other acute concerns Physical Exam Constitutional: WD/WN, vitals as above Respiratory: diminished, no respiratory distress Cardiovascular: tachycardic, 3+ diffuse pitting edema of BLE Gastrointestinal (Abdomen): soft, edematous Results & Data Results & Data Vital Signs (Past 12 Hours) Vital Signs Temp Pulse Pulse Resp BP Pulse Ox O2 Del Method 05/25/23 02:20 36.9 C 105 H 18 106/65 05/24/23 23:09 37 C 112 H 18 123/61 94 Room Air 05/24/23 23:00 112 H 05/24/23 19:56 36.8 C 108 H 18 119/75 96 Room Air 05/24/23 19:25 Room Air Laboratory Results Short CBC 05/24/23 05/25/23 Range/Units 14:14 06:27 WBC 10.50 (4.8-10.8) K/ul Hgb 8.0 L 8.4 L (12.0-16.0) g/dl Hct 24.3 L 25.5 L (37.0-47.0) % Plt Count 132 (130-400) K/uL BMP 05/25/23 06:27 Sodium 133 L Potassium 3.8 Chloride 93 L Carbon Dioxide 31 BUN 22 Creatinine 1.23 H Glucose 99 Calcium 8.4 L Medications Administered Home Medications Medication Instructions Recorded Confirmed Last Taken calcium carbonate 600 mg-vitamin 1 cap PO BID 02/11/18 05/15/23 05/15/23 08:00 D3 10 mcg (400 unit) capsule latanoprost 0.005 % eye drops 1 drp OPB HS 04/11/18 05/15/23 05/14/23 montelukast 10 mg tablet 10 mg PO QAM 04/11/18 05/15/23 05/15/23 pantoprazole 40 mg tablet,delayed 40 mg PO DAILYBB 04/11/18 05/15/23 05/15/23 release levalbuterol tartrate 45 1 puff inhalation Q4H PRN Wheezing 11/11/18 05/15/23 Unknown mcg/actuation aerosol inhaler milk thistle seed extract 175 mg 175 mg PO QAM 01/21/19 05/15/23 05/15/23 tablet acetaminophen 650 mg 650 mg PO Q8H PRN Pain 07/14/20 05/15/23 Unknown tablet,extended release (Tylenol 8 Hour) blood sugar diagnostic (OneTouch #50 ea 07/15/20 Unknown Verio test strips) lancets 30 gauge (OneTouch Delica #100 ea 07/15/20 Unknown Lancets) cyclosporine 0.05 % eye drops in a 1 drp ophthalmic (eye) QAM 12/22/20 05/15/23 05/15/23 dropperette (Restasis) cinnamon bark 500 mg capsule 1,000 mg PO TID 01/20/22 05/15/23 05/15/23 08:00 (Cinnamon) fluticasone propionate 110 2 puff inhalation AMPM 01/20/22 05/15/23 05/15/23 mcg/actuation HFA aerosol inhaler garlic 100 mg tablet 1,000 mg PO BID 01/20/22 05/15/23 05/15/23 08:00 guaifenesin 100 mg/5 mL oral 200 mg (10 mL) PO Q6H PRN cough 01/22/22 05/15/23 Unknown liquid (Cough Syrup) #473 mL sodium di- and 1 tab PO BID #60 tabs 03/26/23 05/15/23 05/15/23 08:00 monophosphate-potassium phos monobasic 250 mg tablet (Phospha Neutral) Lactobacillus rhamnosus GG 10 1 cap PO DAILY 05/15/23 05/15/23 05/15/23 billion cell capsule (Culturelle) docusate sodium 100 mg capsule 100 mg PO TID PRN Constipation 05/15/23 05/15/23 Unknown iron,carbonyl 65 mg-vitamin C 125 1 tab PO HS 05/15/23 05/15/23 05/14/23 mg tablet,delayed release (Vitron-C) lactulose 10 gram/15 mL (15 mL) 45 g PO DAILY PRN constipation 05/15/23 05/15/23 Unknown oral solution levalbuterol HCl 1.25 mg/3 mL 1.25 mg inhalation Q4H PRN Wheezing 05/15/23 05/15/23 Unknown solution for nebulization potassium chloride 20 mEq 40 meq PO QAM 05/15/23 05/15/23 05/15/23 tablet,extended release psyllium husk 6 gram oral powder 6 g PO TID PRN Constipation 05/15/23 05/15/23 Unknown packet torsemide 100 mg tablet 100 mg PO QAM 05/15/23 05/15/23 05/15/23 Active Medications Generic Name Dose Route Start Last Admin Trade Name Freq PRN Reason Stop Dose Admin Acetaminophen 650 mg 05/15/23 21:22 05/21/23 13:16 Acetaminophen 325 Mg Tab PO 06/14/23 21:21 650 mg Q8H PRN Administration Pain Artificial Tears 1 drops 05/16/23 09:00 05/25/23 08:07 Artificial Tears OP 06/15/23 08:59 1 drops QAM WILLOW Administration Calcium/Vitamin D 1 tab 05/15/23 21:30 05/25/23 08:06 Calcium 600mg + Vit D 400 Iu Tab PO 06/14/23 21:29 1 tab BID WILLOW Administration Fluticasone Furoate 1 puffs 05/16/23 09:00 05/25/23 08:04 Fluticasone Furoate 200mcg 14 Puffs/Inhaler INH 06/15/23 08:59 1 puffs TODAY@0900 WILLOW Administration Furosemide 100 mg 05/24/23 15:00 05/25/23 12:51 Furosemide 10 Mg/Ml 10 Ml Vial IV 06/23/23 14:59 100 mg TID WILLOW Administration Heparin Sodium (Porcine) 5,000 units 05/18/23 21:00 05/25/23 08:05 Heparin Sod 5,000 Unit/0.5 Ml Vial SQ 06/17/23 20:59 5,000 units Q12 WILLOW Administration Lactobacillus Acidophilus 1 gm 05/16/23 09:00 05/25/23 08:07 Lactobacillus Acidophilus 1 Gm Pack PO 06/15/23 08:59 1 gm DAILY WILLOW Administration Latanoprost 1 drops 05/15/23 21:10 05/24/23 20:55 Latanoprost 0.005% Op Soln 2.5 Ml Btl OPB 06/14/23 21:09 1 drops HS WILLOW Administration Levalbuterol HCl 1.25 mg 05/15/23 21:10 05/20/23 22:14 Levalbuterol 1.25 Mg/3 Ml Neb INH 06/14/23 21:09 1.25 mg Q4H PRN Administration Wheezing Levalbuterol HCl 1 puffs 05/15/23 21:10 05/19/23 13:44 Levalbuterol Tartrate 15 Gm Hfa.Aer.Ad INH 06/14/23 21:09 1 puffs Q4H PRN Administration Wheezing Magnesium Oxide 400 mg 05/24/23 09:00 05/25/23 08:06 Magnesium Oxide 400 Mg Tab PO 06/23/23 08:59 400 mg BID WILLOW Administration Metolazone 5 mg 05/17/23 17:00 05/25/23 08:07 Metolazone 5 Mg Tablet PO 06/16/23 16:59 5 mg [id number] WILLOW Administration Montelukast Sodium 10 mg 05/16/23 09:00 05/25/23 08:06 Montelukast Sodium 10 Mg Tablet PO 06/15/23 08:59 10 mg QAM WILLOW Administration Ondansetron HCl 4 mg 05/17/23 12:36 05/25/23 08:22 Ondansetron Inj 2 Mg/Ml 2 Ml Vial IV 06/16/23 12:35 4 mg Q6H PRN Administration Nausea And Vomiting Pantoprazole Sodium 40 mg 05/16/23 06:30 05/25/23 06:39 Pantoprazole 40 Mg Tab PO 06/15/23 06:29 40 mg TODAY@0630 WILLOW Administration Potassium Chloride 20 meq 05/23/23 21:00 05/25/23 08:06 Potassium Chloride Crtab 20 Meq Tabcr PO 06/22/23 20:59 20 meq BID WILLOW Administration Potassium Phosphate 1 tab 05/15/23 21:30 05/25/23 08:05 Pot Phosphate Monobasic W/ Sod Tab PO 06/14/23 21:29 1 tab BID WILLOW Administration Spironolactone 100 mg 05/18/23 11:00 05/25/23 08:06 Spironolactone 100 Mg Tab PO 06/17/23 10:59 100 mg QAM WILLOW Administration
[2023-05-25 07:43] LABS: BUN Creatinine Ratio 17.9 (10-20); Calcium 8.4 mg/dl (8.6-10.3); Creatinine Clr Calc Pharmacy 41.7 ml/min; Est GFR (African American) 51.1 ml/min; Est GFR (Non-African American) 44.1 ml/min; Potassium 3.8 mmol/L (3.5-5.1)
[2023-05-25] MEDS: FLUTICASONE FUROATE 200MCG 14 PUFFS/INHALER INH SCH (08:04)
[2023-05-25] MEDS: HEPARIN SOD 5,000 UNIT/0.5 ML VIAL SQ SCH ×2 (08:05→20:33)
[2023-05-25] MEDS: POT PHOSPHATE MONOBASIC W/ SOD TAB PO SCH ×2 (08:05→20:33)
[2023-05-25] MEDS: MONTELUKAST SODIUM 10 MG TABLET PO SCH (08:06)
[2023-05-25] MEDS: MAGNESIUM OXIDE 400 MG TAB PO SCH ×2 (08:06→20:33)
[2023-05-25] MEDS: SPIRONOLACTONE 100 MG TAB PO SCH (08:06)
[2023-05-25] MEDS: POTASSIUM CHLORIDE CRTAB 20 MEQ TABCR PO SCH ×2 (08:06→20:33)
[2023-05-25] MEDS: CALCIUM 600MG + VIT D 400 IU TAB PO SCH ×2 (08:06→20:32)
[2023-05-25] MEDS: metOLazone 5 MG TABLET PO SCH ×2 (08:07→16:57)
[2023-05-25] MEDS: LACTOBACILLUS ACIDOPHILUS 1 GM PACK PO SCH (08:07)
[2023-05-25] MEDS: ARTIFICIAL TEARS OP SCH (08:07)
[2023-05-25] MEDS: FUROSEMIDE 10 MG/ML 10 ML VIAL IV SCH ×3 (08:07→20:33)
[2023-05-25] MEDS: ONDANSETRON INJ 2 MG/ML 2 ML VIAL IV PRN (08:22)
[2023-05-25] MEDS ORDERED: LACTULOSE SYRUP 10 GM/15 ML BTL 960 ML PO PRN (14:21)
[2023-05-25] MEDS: LATANOPROST 0.005% OP SOLN 2.5 ML BTL OPB SCH (20:33)
[2023-05-26] MEDS: PANTOprazole 40 MG TAB PO SCH (05:56)
--- NOTE | 2023-05-26 06:27 | Hospitalist Progress Note ---
Date of Service May 26, 2023 Assessment & Plan (1) Acute diastolic (congestive) heart failure: Plan 73-year-old lady with PMH of liver cirrhosis, COPD, hypertensive heart disease with heart failure, T2DM, paroxysmal atrial tachycardia, HTN, HLD, GERD, primary open-angle glaucoma presented to the ED 05/15 with complaint of increasing swelling of the legs and abdomen associated with exertional shortness of breath for the last 3 to 4 weeks [employer]. She reports taking torsemide 100 mg daily since February and has not shown any improvement of the edema. From chart review patient was 72 kg in March and 101 kg at presentation this time. Patient presented with generalized body edema associated with shortness of breath, increase in weight. Since admission, patient is down roughly 16 kilos and remaining net negative on IOs. Discussion over phone had with Dr Alcala, nephrology. Plan to continue current course of aggressive diuresis for another 2-3 days as tolerated. 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 - History of decompensation w/ ascites, HE Patient reports taking torsemide 100 mg daily since February. Patient has history of hypertensive heart disease and failure. Also with history of atrial tachycardia. Admitting CXR with pulmonary vascular congestion 02/28/2023 echo: EF 65 to 70%, grade 1 diastolic dysfunction, mild concentric LVH. 05/16/23 ECHO: Ejection fraction greater than 70%, grade 1 diastolic dysfunction, no pericardial effusion. - MELD-Na:17 on admission -Follows Dr. Blankenship - PSE: No evidence of HE on exam, c/w lactulose (titrated to 3-4BM / day) - Ascites: c/w current diuresis guided by Nephro -No pocket for paracentesis, body wall edema greater than free fluid per GI on 05/17 - EV: No evidence of GIB presently, close monitoring - Will obtain Daily CMP + INR to calculate MELD; low Na diet MELD 05/26 19 - GI consulted, lasted evaluated 05/17 -Nephrology following: -continue metolazone 5mg BID, LASIX 100mg TID, and spironolactone 100mg -Appreciate continued recommendations #Chronic hyponatremia: Admitting sodium of 133, appears stable. OP chart review w/ Na level around low 130s. Will follow. #Acute renal failure: Baseline creatinine around 0.75, admitting creatinine of 1.28. Cr plateaued around 1.2, likely secondary to cardiorenal syndrome. Nephrology on board, appreciate recs. #Chronic normocytic anemia -appears to be lower than baseline, perhaps in setting of fluid overload Fe 51, ferritin 52.7, likely combo of iron deficiency/chronic disease -Start iron supplementation Other chronic medical conditions: Continue with/resume home meds as and when able Hypertension, blood pressure remains a stable, patient being diuresed. Asthma, no acute symptoms, continue home inhalers DVT prophylaxis: Heparin subcu CODE STATUS: DNR/DNI Admission and Anticipated Discharge Date Admission Date: May 15, 2023 Subjective Reports feeling much better overall, stating that yesterday was just a "bad day" She states she feels like she is improving though she is fatigued overall She denies any lightheadedness, chest pain, SOB She states she continues to do her exercises and is eager to sit in chair today as able Physical Exam Constitutional: WD/WN, vitals as above Respiratory: normal respiratory effort, lungs clear to auscultation Cardiovascular: RRR, diffuse edema, 3+ pitting edema up to sacrum Results & Data Results & Data Vital Signs (Past 12 Hours) Vital Signs Temp Pulse Pulse Resp BP Pulse Ox O2 Del Method 05/26/23 02:32 36.6 C 102 H 20 130/62 92 Room Air 05/25/23 23:35 102 H 05/25/23 22:17 37 C 102 H 18 122/60 93 Room Air 05/25/23 19:48 37 C 103 H 18 124/64 92 Room Air Laboratory Results Short CBC 05/26/23 Range/Units 06:41 WBC 7.93 (4.8-10.8) K/ul Hgb 8.3 L (12.0-16.0) g/dl Hct 24.2 L (37.0-47.0) % Plt Count 141 (130-400) K/uL BMP 05/26/23 06:41 Sodium 132 L Potassium 3.9 Chloride 92 L Carbon Dioxide 32 BUN 24 H Creatinine 1.23 H Glucose 85 Calcium 8.4 L Liver Function 05/26/23 Range/Units 06:41 Total Bilirubin 2.4 H (0.2-1.0) mg/dl AST 37 (13-39) U/L ALT 15 (7-52) U/L Alkaline Phosphatase 137 H (34-104) U/L Albumin 2.7 L (3.4-5.0) gm/dl Medications Administered Home Medications Medication Instructions Recorded Confirmed Last Taken calcium carbonate 600 mg-vitamin 1 cap PO BID 02/11/18 05/15/23 05/15/23 08:00 D3 10 mcg (400 unit) capsule latanoprost 0.005 % eye drops 1 drp OPB HS 04/11/18 05/15/23 05/14/23 montelukast 10 mg tablet 10 mg PO QAM 04/11/18 05/15/23 05/15/23 pantoprazole 40 mg tablet,delayed 40 mg PO DAILYBB 04/11/18 05/15/23 05/15/23 release levalbuterol tartrate 45 1 puff inhalation Q4H PRN Wheezing 11/11/18 05/15/23 Unknown mcg/actuation aerosol inhaler milk thistle seed extract 175 mg 175 mg PO QAM 01/21/19 05/15/23 05/15/23 tablet acetaminophen 650 mg 650 mg PO Q8H PRN Pain 07/14/20 05/15/23 Unknown tablet,extended release (Tylenol 8 Hour) blood sugar diagnostic (OneTouch #50 ea 07/15/20 Unknown Verio test strips) lancets 30 gauge (OneTouch Delica #100 ea 07/15/20 Unknown Lancets) cyclosporine 0.05 % eye drops in a 1 drp ophthalmic (eye) QAM 12/22/20 05/15/23 05/15/23 dropperette (Restasis) cinnamon bark 500 mg capsule 1,000 mg PO TID 01/20/22 05/15/23 05/15/23 08:00 (Cinnamon) fluticasone propionate 110 2 puff inhalation AMPM 01/20/22 05/15/23 05/15/23 mcg/actuation HFA aerosol inhaler garlic 100 mg tablet 1,000 mg PO BID 01/20/22 05/15/23 05/15/23 08:00 guaifenesin 100 mg/5 mL oral 200 mg (10 mL) PO Q6H PRN cough 01/22/22 05/15/23 Unknown liquid (Cough Syrup) #473 mL sodium di- and 1 tab PO BID #60 tabs 03/26/23 05/15/23 05/15/23 08:00 monophosphate-potassium phos monobasic 250 mg tablet (Phospha Neutral) Lactobacillus rhamnosus GG 10 1 cap PO DAILY 05/15/23 05/15/23 05/15/23 billion cell capsule (Culturelle) docusate sodium 100 mg capsule 100 mg PO TID PRN Constipation 05/15/23 05/15/23 Unknown iron,carbonyl 65 mg-vitamin C 125 1 tab PO HS 05/15/23 05/15/23 05/14/23 mg tablet,delayed release (Vitron-C) lactulose 10 gram/15 mL (15 mL) 45 g PO DAILY PRN constipation 05/15/23 05/15/23 Unknown oral solution levalbuterol HCl 1.25 mg/3 mL 1.25 mg inhalation Q4H PRN Wheezing 05/15/23 05/15/23 Unknown solution for nebulization potassium chloride 20 mEq 40 meq PO QAM 05/15/23 05/15/23 05/15/23 tablet,extended release psyllium husk 6 gram oral powder 6 g PO TID PRN Constipation 05/15/23 05/15/23 Unknown packet torsemide 100 mg tablet 100 mg PO QAM 05/15/23 05/15/23 05/15/23 Active Medications Generic Name Dose Route Start Last Admin Trade Name Freq PRN Reason Stop Dose Admin Acetaminophen 650 mg 05/15/23 21:22 05/21/23 13:16 Acetaminophen 325 Mg Tab PO 06/14/23 21:21 650 mg Q8H PRN Administration Pain Artificial Tears 1 drops 05/16/23 09:00 05/26/23 09:19 Artificial Tears OP 06/15/23 08:59 1 drops QAM WILLOW Administration Calcium/Vitamin D 1 tab 05/15/23 21:30 05/26/23 09:21 Calcium 600mg + Vit D 400 Iu Tab PO 06/14/23 21:29 1 tab BID WILLOW Administration Fluticasone Furoate 1 puffs 05/16/23 09:00 05/26/23 09:21 Fluticasone Furoate 200mcg 14 Puffs/Inhaler INH 06/15/23 08:59 1 puffs TODAY@0900 WILLOW Administration Furosemide 100 mg 01/05/24 15:00 05/26/23 13:44 Furosemide 10 Mg/Ml 10 Ml Vial IV 06/23/23 14:59 100 mg TID WILLOW Administration Heparin Sodium (Porcine) 5,000 units 05/18/23 21:00 05/26/23 09:23 Heparin Sod 5,000 Unit/0.5 Ml Vial SQ 06/17/23 20:59 5,000 units Q12 WILLOW Administration Magnesium Sulfate/Dextrose 1 gm in 100 mls @ 50 mls/hr 05/26/23 08:45 05/26/23 13:43 Magnesium Sulfate / D5w IV 05/26/23 16:44 50 mls/hr Q2H WILLOW Administration Lactobacillus Acidophilus 1 gm 05/16/23 09:00 05/26/23 09:23 Lactobacillus Acidophilus 1 Gm Pack PO 06/15/23 08:59 1 gm DAILY WILLOW Administration Latanoprost 1 drops 05/15/23 21:10 05/25/23 20:33 Latanoprost 0.005% Op Soln 2.5 Ml Btl OPB 06/14/23 21:09 1 drops HS WILLOW Administration Levalbuterol HCl 1.25 mg 05/15/23 21:10 05/20/23 22:14 Levalbuterol 1.25 Mg/3 Ml Neb INH 06/14/23 21:09 1.25 mg Q4H PRN Administration Wheezing Levalbuterol HCl 1 puffs 05/15/23 21:10 05/19/23 13:44 Levalbuterol Tartrate 15 Gm Hfa.Aer.Ad INH 06/14/23 21:09 1 puffs Q4H PRN Administration Wheezing Magnesium Oxide 400 mg 05/24/23 09:00 05/26/23 09:23 Magnesium Oxide 400 Mg Tab PO 06/23/23 08:59 400 mg BID WILLOW Administration Metolazone 5 mg 05/17/23 17:00 05/26/23 09:24 Metolazone 5 Mg Tablet PO 06/16/23 16:59 5 mg [id number] WILLOW Administration Montelukast Sodium 10 mg 05/16/23 09:00 05/26/23 09:24 Montelukast Sodium 10 Mg Tablet PO 06/15/23 08:59 10 mg QAM WILLOW Administration Ondansetron HCl 4 mg 05/17/23 12:36 05/25/23 08:22 Ondansetron Inj 2 Mg/Ml 2 Ml Vial IV 06/16/23 12:35 4 mg Q6H PRN Administration Nausea And Vomiting Pantoprazole Sodium 40 mg 05/16/23 06:30 05/26/23 05:56 Pantoprazole 40 Mg Tab PO 06/15/23 06:29 40 mg TODAY@0630 WILLOW Administration Potassium Chloride 20 meq 05/23/23 21:00 05/26/23 09:27 Potassium Chloride Crtab 20 Meq Tabcr PO 06/22/23 20:59 20 meq BID WILLOW Administration Potassium Phosphate 1 tab 05/15/23 21:30 05/26/23 09:24 Pot Phosphate Monobasic W/ Sod Tab PO 06/14/23 21:29 1 tab BID WILLOW Administration Spironolactone 100 mg 05/18/23 11:00 05/26/23 09:24 Spironolactone 100 Mg Tab PO 06/17/23 10:59 100 mg QAM WILLOW Administration
[2023-05-26 07:29] LABS: Hematocrit (blood only) 24.2 % (37.0-47.0); Hemoglobin 8.3 g/dl (12.0-16.0); Mean Corpuscular Hemoglobin 30.1 pg (25.0-34.0); Mean Corpuscular Hgb Conc 34.3 g/dL (32.0-36.0); Mean Corpuscular Volume 87.7 fL (80.0-100.0); Mean Platelet Volume 9.6 fL (9.4-12.4); Platelet Count 141 K/uL (130-400); RDW Coefficient of Variation 20.7 % (11.5-14.5); RDW Standard Deviation 66.2 fL (36.4-46.3); Red Blood Count 2.76 M/uL (4.20-5.40); White Blood Count 7.93 K/ul (4.8-10.8)
[2023-05-26 07:57] LABS: INR 1.3 (0.9-1.1); Prothrombin Time 13.6 Seconds (9.0-12.0)
[2023-05-26 08:01] LABS: Albumin Globulin Ratio 0.9 (0.9-2); Albumin Level 2.7 gm/dl (3.4-5.0); BUN Creatinine Ratio 19.5 (10-20); Bilirubin,Total 2.4 mg/dl (0.2-1.0); Calcium 8.4 mg/dl (8.6-10.3); Creatinine Clr Calc Pharmacy 41.6 ml/min; Est GFR (African American) 51.1 ml/min; Est GFR (Non-African American) 44.1 ml/min; Magnesium 1.4 mg/dl (1.7-2.4); Phosphorus 3.4 mg/dl (2.5-4.9); Potassium 3.9 mmol/L (3.5-5.1); Total Protein 5.7 gm/dl (6.0-8.3)
[2023-05-26 08:18] LABS: Folate (Folic Acid),Ser orPlas 21.79 ng/ml (>5.38)
[2023-05-26 08:19] LABS: Ferritin 52.7 ng/ml (8-388); Vitamin B12 > 1500 pg/ml (180-914)
[2023-05-26] MEDS: ARTIFICIAL TEARS OP SCH (09:19)
[2023-05-26] MEDS: CALCIUM 600MG + VIT D 400 IU TAB PO SCH ×2 (09:21→20:37)
[2023-05-26] MEDS: FLUTICASONE FUROATE 200MCG 14 PUFFS/INHALER INH SCH (09:21)
[2023-05-26] MEDS: FUROSEMIDE 10 MG/ML 10 ML VIAL IV SCH ×3 (09:22→20:38)
[2023-05-26] MEDS: MAGNESIUM OXIDE 400 MG TAB PO SCH ×2 (09:23→20:37)
[2023-05-26] MEDS: LACTOBACILLUS ACIDOPHILUS 1 GM PACK PO SCH (09:23)
[2023-05-26] MEDS: HEPARIN SOD 5,000 UNIT/0.5 ML VIAL SQ SCH ×2 (09:23→20:38)
[2023-05-26] MEDS: SPIRONOLACTONE 100 MG TAB PO SCH (09:24)
[2023-05-26] MEDS: MONTELUKAST SODIUM 10 MG TABLET PO SCH (09:24)
[2023-05-26] MEDS: metOLazone 5 MG TABLET PO SCH ×2 (09:24→16:16)
[2023-05-26] MEDS: POT PHOSPHATE MONOBASIC W/ SOD TAB PO SCH ×2 (09:24→20:37)
[2023-05-26] MEDS: POTASSIUM CHLORIDE CRTAB 20 MEQ TABCR PO SCH ×2 (09:27→20:37)
[2023-05-26] MEDS: MAGNESIUM SULFATE / D5W 1 GM/100 ML BAG IV SCH ×4 (09:52→15:50)
[2023-05-26] MEDS: LATANOPROST 0.005% OP SOLN 2.5 ML BTL OPB SCH (20:37)
[2023-05-27] MEDS: PANTOprazole 40 MG TAB PO SCH (05:56)
[2023-05-27 06:42] LABS: Hematocrit (blood only) 25.9 % (37.0-47.0); Hemoglobin 8.6 g/dl (12.0-16.0); Mean Corpuscular Hemoglobin 30.1 pg (25.0-34.0); Mean Corpuscular Hgb Conc 33.2 g/dL (32.0-36.0); Mean Corpuscular Volume 90.6 fL (80.0-100.0); Mean Platelet Volume 9.2 fL (9.4-12.4); Platelet Count 166 K/uL (130-400); RDW Standard Deviation 68.4 fL (36.4-46.3); Red Blood Count 2.86 M/uL (4.20-5.40); White Blood Count 7.79 K/ul (4.8-10.8)
[2023-05-27 07:16] LABS: Albumin Globulin Ratio 0.8 (0.9-2); Albumin Level 2.7 gm/dl (3.4-5.0); BUN Creatinine Ratio 19.2 (10-20); Bilirubin,Total 2.4 mg/dl (0.2-1.0); Calcium 8.6 mg/dl (8.6-10.3); Creatinine Clr Calc Pharmacy 38.1 ml/min; Est GFR (African American) 47.8 ml/min; Est GFR (Non-African American) 41.2 ml/min; Globulin 3.2 gm/dl (2.5-4.0); Phosphorus 3.4 mg/dl (2.5-4.9); Potassium 4.1 mmol/L (3.5-5.1); Total Protein 5.9 gm/dl (6.0-8.3)
[2023-05-27 07:48] LABS: INR 1.2 (0.9-1.1); Prothrombin Time 13.2 Seconds (9.0-12.0)
[2023-05-27] MEDS: FERROUS SULFATE 325 MG/7.4 ML UDP PO SCH (08:10)
[2023-05-27] MEDS: ARTIFICIAL TEARS OP SCH (08:10)
[2023-05-27] MEDS: CALCIUM 600MG + VIT D 400 IU TAB PO SCH ×2 (08:10→20:36)
[2023-05-27] MEDS: FLUTICASONE FUROATE 200MCG 14 PUFFS/INHALER INH SCH (08:10)
[2023-05-27] MEDS: POT PHOSPHATE MONOBASIC W/ SOD TAB PO SCH ×2 (08:11→20:36)
[2023-05-27] MEDS: HEPARIN SOD 5,000 UNIT/0.5 ML VIAL SQ SCH ×2 (08:11→20:37)
[2023-05-27] MEDS: FUROSEMIDE 10 MG/ML 10 ML VIAL IV SCH ×3 (08:11→20:36)
[2023-05-27] MEDS: SPIRONOLACTONE 100 MG TAB PO SCH (08:11)
[2023-05-27] MEDS: LACTOBACILLUS ACIDOPHILUS 1 GM PACK PO SCH (08:11)
[2023-05-27] MEDS: metOLazone 5 MG TABLET PO SCH ×2 (08:11→17:33)
[2023-05-27] MEDS: POTASSIUM CHLORIDE CRTAB 20 MEQ TABCR PO SCH ×2 (08:11→20:36)
[2023-05-27] MEDS: MONTELUKAST SODIUM 10 MG TABLET PO SCH (08:11)
[2023-05-27] MEDS: MAGNESIUM OXIDE 400 MG TAB PO SCH ×2 (08:11→20:36)
--- NOTE | 2023-05-27 10:00 | Nephrology Progress Note ---
Date of Service May 27, 2023 Assessment & Plan Admission and Anticipated Discharge Date Admission Date: May 15, 2023 Subjective Assessment & Plan (1) Anasarca: Plan: Patient with over 20 pound weight gain in the past 1 month prior to admission. standing wt 05/21/23 96 kg, to 80 kilo now . continue IV Lasix 100 mg 3X Aldactone 100 mg daily and metolazone 5 mg twice daily. Labs are stable and we are making major headway with her fluid overload so no need to stop. K supplement 20 mEq bid for now. K normal mag is normal today. even with such massive Diuretics dose she is making about 2700 ml urine so not sure how we can achieve Diuresis as outpt !!!. No clear definitive plan possible. One more day of Iv lasix and then will switch to Bumex 4 mg po tid + aldactone and metolazone to see if we can achieve similar urine output. -continue daily STANDING weight and strict I/O ordered -continue FR 1.2L daily (2) DOLORES (acute kidney injury): Plan: Patient with acute kidney injury with admission creatinine of 1.3 from a baseline of 0.7. Creatinine is plateau'd 1.2-1.3. Will continue diuretics and monitor renal function with daily BMP. Will avoid nephrotoxins such as contrast. Creat slowly improving. (3) Acute hyponatremia: Plan: Stable hypervolemic hyponatremia in the setting of decompensated cirrhosis with ascites and massive edema. Will continue aggressive diuresis and fluid restriction. na 134 now Subjective breathing improved but still weak. edema less but still ++ Urine was 2700 ml yesterday and similar amount last few days on triple diuretic therapy ( high dose) . Review of Systems Review of Systems: All systems reviewed & are unremarkable except as noted in Subjective Physical Exam Constitutional: well developed, + obese, + frail appearing and cooperative; no acute distress Eyes: EOM intact bilaterally ENMT: Ears: no external ear abnormality Nose: no external nose abnormality Mouth: + dry oral mucous membranes Neck: no nuchal rigidity Respiratory: + labored breathing, able to speak in co mplete sentences and + tachypneic Auscultation: + diminished lung sounds Cardiovascular: Rate/Rhythm: regular rhythm and + tachycardic Extremities: + edema (3+ to chest / to under breasts) Gastrointestinal (Abdomen): Inspection/Auscultation: normal bowel sounds Percussion/Palpation: + abdomen tender (RUQ, periumbilical lalo on L) and abdomen soft; no ascites Musculoskeletal: Extremities: strength 5/5 throughout Skin: no rashes, warm and dry Neurologic: tremor + Psychiatric: Orientation: alert and oriented x 3 Results & Data Vital Signs (Past 12 Hours) Vital Signs Temp Pulse Pulse Resp BP Pulse Ox O2 Del Method 05/27/23 07:16 36.6 C 99 H 18 117/76 93 Room Air 05/27/23 04:39 36.6 C 99 H 18 136/66 94 Room Air 05/26/23 22:00 106 H 05/26/23 22:00 36.8 C 106 H 16 123/71 95 Room Air
--- NOTE | 2023-05-27 14:40 | Hospitalist Progress Note ---
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 She reports taking torsemide 100 mg daily since February and has not shown any improvement of the edema. From chart review patient was 72 kg in March and 101 kg at presentation this time. Patient presented with generalized body edema associated with shortness of breath, increase in weight. 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 H/O decompensation w/ ascites, HE Patient reports taking torsemide 100 mg daily since February. --CXR: Pulmonary vascular congestion without overt pulmonary edema. No significant change in marked elevation of the right hemidiaphragm. --02/28/2023 echo: EF 65 to 70%, grade 1 diastolic dysfunction, mild concentric LVH. --05/16/23 ECHO: Ejection fraction greater than 70%, grade 1 diastolic dysfunction, no pericardial effusion. - MELD-Na:17 on admission -Follows Dr. Blankenship - No evidence of HE on exam, c/w lactulose--(titrated to 3-4BM / day -- Ascites: continue diuresis as per Nephrology - GI consulted, lasted evaluated 05/17 -Appreciate Nephrology Input --continue metolazone 5mg BID, LASIX 100mg TID, and spironolactone 100mg Monitor Volume status, I/Os Continue fluid restriction Transition to p.o. diuretics as able Chronic hyponatremia: Hypervolemia contributing as well Sodium 132 Monitor Acute renal failure: Baseline Cr around 0.75 Cr 1.3 today Avoid nephrotoxic agents as able Monitor renal function Chronic normocytic anemia -Drop in hemoglobin from baseline likely dilutional secondary to volume overload No acute bleeding issues Fe 51, ferritin 52.7, likely combo of iron deficiency/chronic disease -Started Iron supplementation Other chronic medical conditions: Continue with/resume home meds as and when able Hypertension, blood pressure remains a stable, patient being diuresed. Asthma, no acute symptoms, continue home inhalers DVT Px: Heparin SQ CODE STATUS: DNR/DNI Admission and Anticipated Discharge Date Admission Date: May 15, 2023 Subjective Patient is seen and examined at bedside States feeling tired Also reports intermittent dizziness Still has significant lower extremity edema Denies any chest pain, dyspnea, nausea, vomiting, abdominal pain Review of Systems Review of Systems: All systems reviewed & are unremarkable except as noted in Subjective Physical Exam Physical Exam: Physical Exam: Vitals signs as noted above General Appearance:Obese, Chronic ill appearing, no apparent distress Head: normocephalic, Atraumatic Eyes: normal inspection, EOMI Neck: supple, Trachea midline Respiratory/Chest: Normal breath sounds, CTA, No accessory muscle use Cardiovascular: S1, S2, No murmur Abdomen/GI:Soft, Non tender, Bowel sounds present Extremities/Musculoskeletal:normal inspection, 3+ B/L LE edema Neurologic/Psych:AAOX3, grossly no focal neurological deficits Skin: normal color, warm Results & Data Results & Data Vital Signs (Past 12 Hours) Vital Signs Temp Pulse Resp BP Pulse Ox O2 Del Method 05/27/23 11:12 36.9 C 103 H 18 115/70 95 Room Air 05/27/23 10:59 Room Air 05/27/23 07:16 36.6 C 99 H 18 117/76 93 Room Air 05/27/23 04:39 36.6 C 99 H 18 136/66 94 Room Air Laboratory Results Short CBC 05/27/23 Range/Units 05:37 WBC 7.79 (4.8-10.8) K/ul Hgb 8.6 L (12.0-16.0) g/dl Hct 25.9 L (37.0-47.0) % Plt Count 166 (130-400) K/uL BMP 05/27/23 05:37 Sodium 132 L Potassium 4.1 Chloride 90 L Carbon Dioxide 34 H BUN 25 H Creatinine 1.30 H Glucose 89 Calcium 8.6 Liver Function 05/27/23 Range/Units 05:37 Total Bilirubin 2.4 H (0.2-1.0) mg/dl AST 36 (13-39) U/L ALT 15 (7-52) U/L Alkaline Phosphatase 139 H (34-104) U/L Albumin 2.7 L (3.4-5.0) gm/dl
[2023-05-27] MEDS: LATANOPROST 0.005% OP SOLN 2.5 ML BTL OPB SCH (20:36)
[2023-05-27] MEDS: LACTULOSE SYRUP 30 GM/45 ML UDP PO PRN (23:07)
[2023-05-28] MEDS: LACTULOSE SYRUP 30 GM/45 ML UDP PO PRN (03:00)
[2023-05-28] MEDS: PANTOprazole 40 MG TAB PO SCH (05:38)
[2023-05-28] MEDS ORDERED: LACTULOSE SYRUP 30 GM/45 ML UDP PO STA (06:42)
[2023-05-28 06:43] LABS: BUN Creatinine Ratio 21.5 (10-20); Calcium 8.6 mg/dl (8.6-10.3); Est GFR (African American) 47.8 ml/min; Est GFR (Non-African American) 41.2 ml/min; Magnesium 1.8 mg/dl (1.7-2.4); Potassium 4.3 mmol/L (3.5-5.1)
[2023-05-28] MEDS: FLUTICASONE FUROATE 200MCG 14 PUFFS/INHALER INH SCH (07:27)
[2023-05-28] MEDS: FUROSEMIDE 10 MG/ML 10 ML VIAL IV SCH (07:28)
[2023-05-28] MEDS: HEPARIN SOD 5,000 UNIT/0.5 ML VIAL SQ SCH ×2 (07:28→20:00)
[2023-05-28] MEDS: metOLazone 5 MG TABLET PO SCH ×2 (07:28→16:54)
[2023-05-28] MEDS: ARTIFICIAL TEARS OP SCH (07:28)
[2023-05-28] MEDS: POTASSIUM CHLORIDE CRTAB 20 MEQ TABCR PO SCH ×2 (07:28→20:00)
[2023-05-28] MEDS: MAGNESIUM OXIDE 400 MG TAB PO SCH ×2 (07:29→19:59)
[2023-05-28] MEDS: POT PHOSPHATE MONOBASIC W/ SOD TAB PO SCH ×2 (07:29→20:00)
[2023-05-28] MEDS: FERROUS SULFATE 325 MG/7.4 ML UDP PO SCH (07:29)
[2023-05-28] MEDS: SPIRONOLACTONE 100 MG TAB PO SCH (07:29)
[2023-05-28] MEDS: MONTELUKAST SODIUM 10 MG TABLET PO SCH (07:29)
[2023-05-28] MEDS: LACTOBACILLUS ACIDOPHILUS 1 GM PACK PO SCH (07:29)
[2023-05-28] MEDS: CALCIUM 600MG + VIT D 400 IU TAB PO SCH ×2 (07:29→20:01)
--- NOTE | 2023-05-28 09:47 | Nephrology Progress Note ---
Date of Service May 28, 2023 Assessment & Plan Admission and Anticipated Discharge Date Admission Date: May 15, 2023 Subjective Assessment & Plan (1) Anasarca: Plan: Patient with over 20 pound weight gain in the past 1 month prior to admission. standing wt 05/21/23 96 kg, to 80 kilo now . Stop Iv lasix. Start Bumex 4 mg po bid and conitnue Aldactone 100 mg daily and metolazone 5 mg twice daily. Labs are stable and we are making major headway with her fluid overload so no need to stop. K supplement 20 mEq bid for now. K normal mag is normal today. even with such massive Diuretics dose she is making about 2700 ml urine so not sure how we can achieve Diuresis as outpt !!!. No clear definitive plan possible. Will see if we can achieve similar urine output of around 2700 ml per day -continue daily STANDING weight and strict I/O ordered -continue FR 1.2L daily (2) DOLORES (acute kidney injury): Plan: Patient with acute kidney injury with admission creatinine of 1.3 from a baseline of 0.7. Creatinine is plateau'd 1.2-1.3. Will continue diuretics and monitor renal function with daily BMP. Will avoid nephrotoxins such as contrast. Creat slowly improving. (3) Acute hyponatremia: Plan: Stable hypervolemic hyponatremia in the setting of decompensated cirrhosis with ascites and massive edema. Will continue aggressive diuresis and fluid restriction. na 134 now Subjective breathing improved but still weak. edema less but still ++ Urine was 2700 ml yesterday and similar amount last few days on triple diuretic therapy ( high dose) . Review of Systems Review of Systems: All systems reviewed & are unremarkable except as noted in Subjective Physical Exam Constitutional: well developed, + obese, + frail appearing and cooperative; no acute distress Eyes: EOM intact bilaterally ENMT: Ears: no external ear abnormality Nose: no external nose abnormality Mouth: + dry oral mucous membranes Neck: no nuchal rigidity Respiratory: + labored breathing, able to speak in co mplete sentences and + tachypneic Auscultation: + diminished lung sounds Cardiovascular: Rate/Rhythm: regular rhythm and + tachycardic Extremities: + edema (3+ to chest / to under breasts) Gastrointestinal (Abdomen): Inspection/Auscultation: normal bowel sounds Percussion/Palpation: + abdomen tender (RUQ, periumbilical lalo on L) and abdomen soft; no ascites Musculoskeletal: Extremities: strength 5/5 throughout Skin: no rashes, warm and dry Neurologic: tremor + Psychiatric: Orientation: alert and oriented x 3 Results & Data Vital Signs (Past 12 Hours) Vital Signs Temp Pulse Pulse Resp BP Pulse Ox O2 Del Method 05/28/23 08:00 120 H 05/28/23 08:00 Room Air 05/28/23 07:07 36.8 C 105 H 18 96/78 L 96 Room Air 05/28/23 02:13 36.9 C 105 H 20 120/54 L 93 Room Air 05/27/23 22:36 36.6 C 87 16 131/63 96 Room Air 05/27/23 22:00 108 H
[2023-05-28] MEDS: BUMETANIDE 1 MG TAB PO SCH ×2 (11:02→16:54)
--- NOTE | 2023-05-28 14:16 | Hospitalist Progress Note ---
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 From chart review patient was 72 kg in March and 101 kg at presentation this time. Patient presented with generalized body edema associated with shortness of breath, increase in weight. 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 H/O decompensation w/ ascites, HE Patient reports taking torsemide 100 mg daily since February. --CXR: Pulmonary vascular congestion without overt pulmonary edema. No significant change in marked elevation of the right hemidiaphragm. --02/28/2023 echo: EF 65 to 70%, grade 1 diastolic dysfunction, mild concentric LVH. --05/16/23 ECHO: Ejection fraction greater than 70%, grade 1 diastolic dysfunction, no pericardial effusion. - MELD-Na:17 on admission -Follows Dr. Elizabeth - No evidence of HE on exam, c/w lactulose--(titrated to 3-4BM / day -- Ascites: continue diuresis as per Nephrology - GI consulted, lasted evaluated 05/17 -Appreciate Nephrology Input --continue metolazone 5mg BID, spironolactone 100mg -- IV Lasix 100 mg 3 times daily transitioned to Bumex 4 mg twice daily Monitor Volume status, I/Os Continue fluid restriction Nephrology following Plan to discharge to rehab facility as able Chronic hyponatremia: Hypervolemia contributing as well Sodium 132 Monitor Acute renal failure: Baseline Cr around 0.75 Cr 1.3 today Avoid nephrotoxic agents as able Monitor renal function Chronic normocytic anemia -Drop in hemoglobin from baseline likely dilutional secondary to volume overload No acute bleeding issues Fe 51, ferritin 52.7, likely combo of iron deficiency/chronic disease -Started Iron supplementation Other chronic medical conditions: Continue with/resume home meds as and when able Hypertension, blood pressure remains a stable, patient being diuresed. Asthma, no acute symptoms, continue home inhalers DVT Px: Heparin SQ CODE STATUS: DNR/DNI Admission and Anticipated Discharge Date Admission Date: May 15, 2023 Subjective Patient is seen and examined at bedside States feeling better today Reports some dyspnea on exertion but able to move better when compared to before Discussed with nephrology today Still has significant lower extremity edema Denies any chest pain, dyspnea, nausea, vomiting, abdominal pain Review of Systems Review of Systems: All systems reviewed & are unremarkable except as noted in Subjective Physical Exam Physical Exam: Physical Exam: Vitals signs as noted above General Appearance:Obese, Chronic ill appearing, no apparent distress Head: normocephalic, Atraumatic Eyes: normal inspection, EOMI Neck: supple, Trachea midline Respiratory/Chest: Normal breath sounds, CTA, No accessory muscle use Cardiovascular: S1, S2, No murmur Abdomen/GI:Soft, Non tender, Bowel sounds present Extremities/Musculoskeletal:normal inspection, 3+ B/L LE edema Neurologic/Psych:AAOX3, grossly no focal neurological deficits Skin: normal color, warm Results & Data Results & Data Vital Signs (Past 12 Hours) Vital Signs Temp Pulse Pulse Resp BP Pulse Ox O2 Del Method 05/28/23 11:39 37.0 C 107 H 18 105/56 L 96 Room Air 05/28/23 08:00 120 H 05/28/23 08:00 Room Air 05/28/23 07:07 36.8 C 105 H 18 96/78 L 96 Room Air Laboratory Results [facility] 05/28/23 05:53 Sodium 132 L Potassium 4.3 Chloride 91 L Carbon Dioxide 33 H BUN 28 H Creatinine 1.30 H Glucose 113 H Calcium 8.6
[2023-05-28] MEDS: LATANOPROST 0.005% OP SOLN 2.5 ML BTL OPB SCH (20:01)
[2023-05-29] MEDS: PANTOprazole 40 MG TAB PO SCH (05:46)
[2023-05-29 06:25] LABS: Hemoglobin 8.3 g/dl (12.0-16.0); Mean Corpuscular Hemoglobin 30.1 pg (25.0-34.0); Mean Corpuscular Hgb Conc 34.6 g/dL (32.0-36.0); Mean Platelet Volume 9.3 fL (9.4-12.4); Platelet Count 177 K/uL (130-400); RDW Coefficient of Variation 21.5 % (11.5-14.5); Red Blood Count 2.76 M/uL (4.20-5.40); White Blood Count 8.61 K/ul (4.8-10.8)
[2023-05-29 06:48] LABS: BUN Creatinine Ratio 25.7 (10-20); Calcium 8.4 mg/dl (8.6-10.3); Creatinine Clr Calc Pharmacy 44.6 ml/min; Est GFR (African American) 56.6 ml/min; Est GFR (Non-African American) 48.9 ml/min; Potassium 4.1 mmol/L (3.5-5.1)
[2023-05-29 06:51] LABS: INR 1.2 (0.9-1.1); Prothrombin Time 13.2 Seconds (9.0-12.0)
[2023-05-29] MEDS: ARTIFICIAL TEARS OP SCH (07:28)
[2023-05-29] MEDS: SPIRONOLACTONE 100 MG TAB PO SCH (07:28)
[2023-05-29] MEDS: FERROUS SULFATE 325 MG/7.4 ML UDP PO SCH (07:28)
[2023-05-29] MEDS: FLUTICASONE FUROATE 200MCG 14 PUFFS/INHALER INH SCH (07:28)
[2023-05-29] MEDS: BUMETANIDE 1 MG TAB PO SCH ×2 (07:29→16:28)
[2023-05-29] MEDS: CALCIUM 600MG + VIT D 400 IU TAB PO SCH ×2 (07:29→23:00)
[2023-05-29] MEDS: metOLazone 5 MG TABLET PO SCH (07:29)
[2023-05-29] MEDS: MONTELUKAST SODIUM 10 MG TABLET PO SCH (07:29)
[2023-05-29] MEDS: POTASSIUM CHLORIDE CRTAB 20 MEQ TABCR PO SCH ×2 (07:29→22:58)
[2023-05-29] MEDS: MAGNESIUM OXIDE 400 MG TAB PO SCH ×2 (07:29→22:59)
[2023-05-29] MEDS: HEPARIN SOD 5,000 UNIT/0.5 ML VIAL SQ SCH ×2 (07:29→22:57)
[2023-05-29] MEDS: LACTOBACILLUS ACIDOPHILUS 1 GM PACK PO SCH (07:30)
[2023-05-29] MEDS: POT PHOSPHATE MONOBASIC W/ SOD TAB PO SCH ×2 (07:30→22:58)
--- NOTE | 2023-05-29 10:21 | Nephrology Progress Note ---
Date of Service May 29, 2023 Assessment & Plan Admission and Anticipated Discharge Date Admission Date: May 15, 2023 Subjective Subjective Assessment & Plan (1) Anasarca: Plan: Patient with over 20 pound weight gain in the past 1 month prior to admission. standing wt 05/21/23 96 kg, to 80 kilo now . Bumex 4 mg po bid and conitnue Aldactone 100 mg daily and metolazone 5 mg daily. Labs are stable and we are making major headway with her fluid overload so no need to stop. K supplement 20 mEq bid for now. K normal mag is normal today. No clear definitive plan possible. Will see if we can achieve similar urine output of around 2500+ ml per day na is lower today ( right after we Stopped iv lasix)--not a good sign. Change metolazone to once daily. -continue daily STANDING weight and strict I/O ordered -continue FR 1.2L daily (2) DOLORES (acute kidney injury): Plan: Patient with acute kidney injury with admission creatinine of 1.3 from a baseline of 0.7. Creatinine is plateau'd 1.2-1.3. Will continue diuretics and monitor renal function with daily BMP. Will avoid nephrotoxins such as contrast. Creat slowly improving. (3) Acute hyponatremia: Plan: Stable hypervolemic hyponatremia in the setting of decompensated cirrhosis with ascites and massive edema. Will continue aggressive diuresis and fluid restriction. na 134 now Subjective breathing improved but still weak. edema less but still ++ Urine was 2900 ml yesterday and similar amount last few days on triple diuretic therapy ( high dose) . Review of Systems Review of Systems: All systems reviewed & are unremarkable except as noted in Subjective Physical Exam Constitutional: well developed, + obese, + frail appearing and cooperative; no acute distress Eyes: EOM intact bilaterally ENMT: Ears: no external ear abnormality Nose: no external nose abnormality Mouth: + dry oral mucous membranes Neck: no nuchal rigidity Respiratory: + labored breathing, able to speak in co mplete sentences and + tachypneic Auscultation: + diminished lung sounds Cardiovascular: Rate/Rhythm: regular rhythm and + tachycardic Extremities: + edema (3+ to chest / to under breasts) Gastrointestinal (Abdomen): Inspection/Auscultation: normal bowel sounds Percussion/Palpation: + abdomen tender (RUQ, periumbilical lalo on L) and abdomen soft; no ascites Musculoskeletal: Extremities: strength 5/5 throughout Skin: no rashes, warm and dry Neurologic: tremor + Psychiatric: Orientation: alert and oriented x 3 Results & Data Vital Signs (Past 12 Hours) Vital Signs Temp Pulse Pulse Resp BP Pulse Ox O2 Del Method 05/29/23 08:00 Room Air 05/29/23 07:21 36.6 C 101 H 18 122/63 92 Room Air 05/29/23 06:55 106 H 05/29/23 02:24 36.7 C 104 H 16 98/63 L 94 Room Air 05/28/23 22:37 37.0 C 110 H 16 119/59 L 91 Room Air
[2023-05-29] MEDS: SODIUM CHLORIDE 0.65% NA SOLN 45 ML (OCEAN) SCH ×2 (11:03→23:02)
--- NOTE | 2023-05-29 16:45 | Hospitalist Progress Note ---
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 She reports taking torsemide 100 mg daily since February and has not shown any improvement of the edema. From chart review patient was 72 kg in March and 101 kg at presentation this time. Patient presented with generalized body edema associated with shortness of breath, increase in weight. 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 H/O decompensation w/ ascites, HE Patient reports taking torsemide 100 mg daily since February. --CXR: Pulmonary vascular congestion without overt pulmonary edema. No significant change in marked elevation of the right hemidiaphragm. --02/28/2023 echo: EF 65 to 70%, grade 1 diastolic dysfunction, mild concentric LVH. --05/16/23 ECHO: Ejection fraction greater than 70%, grade 1 diastolic dysfunction, no pericardial effusion. - MELD-Na:17 on admission -Follows Dr. Elizabeth - No evidence of HE on exam, c/w lactulose--(titrated to 3-4BM / day -- Ascites: continue diuresis as per Nephrology - GI consulted, lasted evaluated 05/17 -Appreciate Nephrology Input --continue metolazone, spironolactone 100mg -- IV Lasix 100 mg 3 times daily transitioned to Bumex 4 mg twice daily Monitor Volume status, I/Os Continue fluid restriction Nephrology following Changed to metolazone to 5 mg daily Monitor sodium levels Renal function stable Chronic hyponatremia: Hypervolemia contributing as well Sodium 128 today Monitor Acute renal failure: Baseline Cr around 0.75 Cr 1.1 today Avoid nephrotoxic agents as able Monitor renal function Chronic normocytic anemia -Drop in hemoglobin from baseline likely dilutional secondary to volume overload No acute bleeding issues Fe 51, ferritin 52.7, likely combo of iron deficiency/chronic disease -Started Iron supplementation Other chronic medical conditions: Continue with/resume home meds as and when able Hypertension, blood pressure remains a stable, patient being diuresed. Asthma, no acute symptoms, continue home inhalers DVT Px: Heparin SQ CODE STATUS: DNR/DNI Admission and Anticipated Discharge Date Admission Date: May 15, 2023 Subjective Patient is seen and examined at bedside States feeling weak and tired Diuresing well on p.o. diuretics No other specific complaints Discussed with nephrology today Denies any chest pain, dyspnea, nausea, vomiting, abdominal pain Review of Systems Review of Systems: All systems reviewed & are unremarkable except as noted in Subjective Physical Exam Physical Exam: Physical Exam: Vitals signs as noted above General Appearance:Obese, Chronic ill appearing, no apparent distress Head: normocephalic, Atraumatic Eyes: normal inspection, EOMI Neck: supple, Trachea midline Respiratory/Chest: Normal breath sounds, CTA, No accessory muscle use Cardiovascular: S1, S2, No murmur Abdomen/GI:Soft, Non tender, Bowel sounds present Extremities/Musculoskeletal:normal inspection, 3+ B/L LE edema Neurologic/Psych:AAOX3, grossly no focal neurological deficits Skin: normal color, warm Results & Data Results & Data Vital Signs (Past 12 Hours) Vital Signs Temp Pulse Pulse Resp BP Pulse Ox O2 Del Method 05/29/23 15:14 36.7 C 98 H 18 119/58 L 95 Room Air 05/29/23 14:50 98 H 05/29/23 11:08 36.7 C 102 H 18 155/72 H 97 Room Air 05/29/23 08:00 Room Air 05/29/23 07:21 36.6 C 101 H 18 122/63 92 Room Air 05/29/23 06:55 106 H Laboratory Results Short CBC 05/29/23 Range/Units 05:29 WBC 8.61 (4.8-10.8) K/ul Hgb 8.3 L (12.0-16.0) g/dl Hct 24.0 L (37.0-47.0) % Plt Count 177 (130-400) K/uL BMP 05/29/23 05:29 Sodium 128 L Potassium 4.1 Chloride 89 L Carbon Dioxide 32 BUN 29 H Creatinine 1.13 Glucose 86 Calcium 8.4 L
[2023-05-29] MEDS: LATANOPROST 0.005% OP SOLN 2.5 ML BTL OPB SCH (22:59)
[2023-05-30] MEDS: ONDANSETRON INJ 2 MG/ML 2 ML VIAL IV PRN (00:28)
[2023-05-30] MEDS: PANTOprazole 40 MG TAB PO SCH (05:42)
[2023-05-30 06:41] LABS: BUN Creatinine Ratio 25.4 (10-20); Calcium 8.4 mg/dl (8.6-10.3); Creatinine Clr Calc Pharmacy 42.7 ml/min; Est GFR (African American) 53.7 ml/min; Est GFR (Non-African American) 46.4 ml/min; Potassium 4.4 mmol/L (3.5-5.1)
[2023-05-30] MEDS ORDERED: metOLazone 5 MG TABLET PO SCH (09:00)
[2023-05-30] MEDS: ARTIFICIAL TEARS OP SCH (09:44)
[2023-05-30] MEDS: BUMETANIDE 1 MG TAB PO SCH (09:44)
[2023-05-30] MEDS: SPIRONOLACTONE 100 MG TAB PO SCH (09:45)
[2023-05-30] MEDS: MAGNESIUM OXIDE 400 MG TAB PO SCH ×2 (09:45→21:41)
[2023-05-30] MEDS: POT PHOSPHATE MONOBASIC W/ SOD TAB PO SCH ×2 (09:45→21:43)
[2023-05-30] MEDS: POTASSIUM CHLORIDE CRTAB 20 MEQ TABCR PO SCH ×2 (09:45→21:42)
[2023-05-30] MEDS: MONTELUKAST SODIUM 10 MG TABLET PO SCH (09:45)
[2023-05-30] MEDS: SODIUM CHLORIDE 0.65% NA SOLN 45 ML (OCEAN) SCH ×2 (09:46→21:43)
[2023-05-30] MEDS: HEPARIN SOD 5,000 UNIT/0.5 ML VIAL SQ SCH ×2 (09:47→21:42)
[2023-05-30] MEDS: LACTOBACILLUS ACIDOPHILUS 1 GM PACK PO SCH (09:47)
[2023-05-30] MEDS: CALCIUM 600MG + VIT D 400 IU TAB PO SCH ×2 (09:48→21:42)
[2023-05-30] MEDS: FERROUS SULFATE 325 MG/7.4 ML UDP PO SCH (09:48)
[2023-05-30] MEDS: LACTULOSE SYRUP 30 GM/45 ML UDP PO SCH (09:49)
[2023-05-30] MEDS: FLUTICASONE FUROATE 200MCG 14 PUFFS/INHALER INH SCH (09:49)
--- NOTE | 2023-05-30 10:30 | Nephrology Progress Note ---
Date of Service May 30, 2023 Assessment & Plan Admission and Anticipated Discharge Date Admission Date: May 15, 2023 Subjective Assessment & Plan (1) Anasarca: Plan: Na started dropping as soon as we Stopped iv lasix--not a good sign. restart lasix 100 iv q8hr with 25% albumin for today Consider Palliative med/Comfort care. However she claims she was told that she will be a Liver transplant candidate. Would ask GI about Traansplant vs TIPS etc. her MELD score is not that high but Fluid management is essentially terminal. Needing massive Diuretics -continue daily STANDING weight and strict I/O ordered -continue FR 1.2L daily (2) DOLORES (acute kidney injury): Plan: Patient with acute kidney injury with admission creatinine of 1.3 from a baseline of 0.7. Creatinine is plateau'd 1.2-1.3. Will continue diuretics and monitor renal function with daily BMP. Will avoid nephrotoxins such as contrast. Creat slowly improving. (3) Acute hyponatremia: Plan: hypervolemic hyponatremia in the setting of decompensated cirrhosis with ascites and massive edema. Will continue aggressive diuresis and fluid restriction. na started dropping as soon as we stopped iv lasix. Restart Lasix 100 iv q8h and add Albumin 25% for today only Subjective breathing improved but very weak. edema less but still ++ Urine was only 1700 ml yesterday and now Na is dropping with less urine. Review of Systems Review of Systems: All systems reviewed & are unremarkable except as noted in Subjective Physical Exam Constitutional: well developed, + obese, + frail appearing and cooperative; no acute distress Eyes: EOM intact bilaterally ENMT: Ears: no external ear abnormality Nose: no external nose abnormality Mouth: + dry oral mucous membranes Neck: no nuchal rigidity Respiratory: + labored breathing, able to speak in co mplete sentences and + tachypneic Auscultation: + diminished lung sounds Cardiovascular: Rate/Rhythm: regular rhythm and + tachycardic Extremities: + edema (4+) Gastrointestinal (Abdomen): Inspection/Auscultation: normal bowel sounds Percussion/Palpation: + abdomen tender (RUQ, periumbilical lalo on L) and abdomen soft; no ascites Musculoskeletal: Extremities: strength 5/5 throughout Skin: no rashes, warm and dry Neurologic: tremor + Psychiatric: Orientation: alert and oriented x 3 Results & Data Vital Signs (Past 12 Hours) Vital Signs Temp Pulse Pulse Resp BP Pulse Ox O2 Del Method 05/30/23 07:34 105 H 05/30/23 07:29 36.7 C 85 18 95/65 L 95 Room Air 05/30/23 03:07 36.7 C 98 H 18 122/62 94 Room Air 05/29/23 23:17 36.6 C 104 H 17 112/55 L 92 Room Air
[2023-05-30] MEDS ORDERED: FUROSEMIDE 40 MG/4 ML VIAL IV SCH (11:15)
[2023-05-30] MEDS: ALBUMIN 25% 25 GM/100 ML VIAL IV SCH ×2 (11:33→18:45)
[2023-05-30] MEDS: FUROSEMIDE 10 MG/ML 10 ML VIAL IV SCH ×2 (12:14→21:41)
--- NOTE | 2023-05-30 16:45 | Hospitalist Progress Note ---
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 From chart review patient was 72 kg in March and 101 kg at presentation this time. Patient presented with generalized body edema associated with shortness of breath, increase in weight. 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 H/O decompensation w/ ascites, HE Patient reports taking torsemide 100 mg daily since February. --CXR: Pulmonary vascular congestion without overt pulmonary edema. No significant change in marked elevation of the right hemidiaphragm. --02/28/2023 echo: EF 65 to 70%, grade 1 diastolic dysfunction, mild concentric LVH. --05/16/23 ECHO: Ejection fraction greater than 70%, grade 1 diastolic dysfunction, no pericardial effusion. - MELD-Na:17 on admission -Follows Dr. Elizabeth - No evidence of HE on exam, c/w lactulose--(titrated to 3-4BM / day -- Ascites: continue diuresis as per Nephrology - GI consulted, lasted evaluated 05/17 -Appreciate Nephrology Input --continue metolazone, spironolactone 100mg -- IV Lasix 100 mg 3 times daily transitioned to Bumex 4 mg twice daily -- As sodium levels dropped, patient was placed back on IV diuretics as per nephrology on 05/30/23 Monitor Volume status, I/Os Continue fluid restriction Nephrology following Changed to metolazone to 5 mg daily Monitor sodium levels Requested GI to reevaluate as patient failed aggressive IV diuresis . Need for ? Liver Transplant Vs TIPS May need to consult palliative care to address goals of care Chronic hyponatremia: Hypervolemia contributing as well Sodium 126 today Monitor Acute renal failure: Baseline Cr around 0.75 Cr 1.1 today Avoid nephrotoxic agents as able Monitor renal function Chronic normocytic anemia -Drop in hemoglobin from baseline likely dilutional secondary to volume overload No acute bleeding issues Fe 51, ferritin 52.7, likely combo of iron deficiency/chronic disease -Started Iron supplementation Other chronic medical conditions: Continue with/resume home meds as and when able Hypertension, blood pressure remains a stable, patient being diuresed. Asthma, no acute symptoms, continue home inhalers DVT Px: Heparin SQ CODE STATUS: DNR/DNI Admission and Anticipated Discharge Date Admission Date: May 15, 2023 Subjective Patient is seen and examined at bedside Subjectively feels well Still has significant lower extremity anemia Sodium levels dropped Discussed with nephrology today Requested GI to reevaluate patient Denies any chest pain, dyspnea, nausea, vomiting, abdominal pain Review of Systems Review of Systems: All systems reviewed & are unremarkable except as noted in Subjective Physical Exam Physical Exam: Physical Exam: Vitals signs as noted above General Appearance:Obese, Chronic ill appearing, no apparent distress Head: normocephalic, Atraumatic Eyes: normal inspection, EOMI Neck: supple, Trachea midline Respiratory/Chest: Normal breath sounds, CTA, No accessory muscle use Cardiovascular: S1, S2, No murmur Abdomen/GI:Soft, Non tender, Bowel sounds present Extremities/Musculoskeletal:normal inspection, 3+ B/L LE edema Neurologic/Psych:AAOX3, grossly no focal neurological deficits Skin: normal color, warm Results & Data Results & Data Vital Signs (Past 12 Hours) Vital Signs Temp Pulse Pulse Resp BP Pulse Ox O2 Del Method 05/30/23 16:05 95 H 05/30/23 15:05 36.7 C 89 18 136/72 96 Room Air 05/30/23 11:09 36.7 C 102 H 18 138/68 97 Room Air 05/30/23 10:37 130/88 05/30/23 07:34 105 H 05/30/23 07:29 36.7 C 85 18 95/65 L 95 Room Air Laboratory Results [facility] 05/30/23 05:58 Sodium 126 L Potassium 4.4 Chloride 88 L Carbon Dioxide 29 BUN 30 H Creatinine 1.18 Glucose 91 Calcium 8.4 L
[2023-05-30] MEDS: metOLazone 5 MG TABLET PO SCH (21:40)
[2023-05-30] MEDS: LATANOPROST 0.005% OP SOLN 2.5 ML BTL OPB SCH (21:41)
[2023-05-31] MEDS: FUROSEMIDE 10 MG/ML 10 ML VIAL IV SCH ×3 (03:28→19:50)
[2023-05-31] MEDS: ALBUMIN 25% 25 GM/100 ML VIAL IV SCH ×2 (03:29→12:35)
[2023-05-31] MEDS: PANTOprazole 40 MG TAB PO SCH (05:45)
[2023-05-31 06:25] LABS: Hematocrit (blood only) 21.6 % (37.0-47.0); Hemoglobin 7.2 g/dl (12.0-16.0); Mean Corpuscular Hemoglobin 30.1 pg (25.0-34.0); Mean Corpuscular Hgb Conc 33.3 g/dL (32.0-36.0); Mean Corpuscular Volume 90.4 fL (80.0-100.0); Mean Platelet Volume 9.1 fL (9.4-12.4); Platelet Count 138 K/uL (130-400); RDW Coefficient of Variation 21.7 % (11.5-14.5); RDW Standard Deviation 70.7 fL (36.4-46.3); Red Blood Count 2.39 M/uL (4.20-5.40); White Blood Count 5.24 K/ul (4.8-10.8)
[2023-05-31 06:30] LABS: Calcium 9.2 mg/dl (8.6-10.3); Potassium 4.4 mmol/L (3.5-5.1)
[2023-05-31 06:35] LABS: BUN Creatinine Ratio 24.2 (10-20); Creatinine Clr Calc Pharmacy 40.6 ml/min; Est GFR (African American) 52.7 ml/min; Est GFR (Non-African American) 45.4 ml/min
[2023-05-31] MEDS: LACTOBACILLUS ACIDOPHILUS 1 GM PACK PO SCH (09:15)
[2023-05-31] MEDS: metOLazone 5 MG TABLET PO SCH ×2 (09:15→20:01)
[2023-05-31] MEDS: MAGNESIUM OXIDE 400 MG TAB PO SCH ×2 (09:15→20:01)
[2023-05-31] MEDS: FLUTICASONE FUROATE 200MCG 14 PUFFS/INHALER INH SCH (09:15)
[2023-05-31] MEDS: MONTELUKAST SODIUM 10 MG TABLET PO SCH (09:16)
[2023-05-31] MEDS: POT PHOSPHATE MONOBASIC W/ SOD TAB PO SCH ×2 (09:16→20:04)
[2023-05-31] MEDS: SPIRONOLACTONE 100 MG TAB PO SCH (09:16)
[2023-05-31] MEDS: FERROUS SULFATE 325 MG/7.4 ML UDP PO SCH (09:16)
[2023-05-31] MEDS: HEPARIN SOD 5,000 UNIT/0.5 ML VIAL SQ SCH ×2 (09:17→20:01)
[2023-05-31] MEDS: SODIUM CHLORIDE 0.65% NA SOLN 45 ML (OCEAN) SCH ×2 (09:17→20:00)
[2023-05-31] MEDS: POTASSIUM CHLORIDE CRTAB 20 MEQ TABCR PO SCH ×2 (09:17→20:03)
[2023-05-31] MEDS: CALCIUM 600MG + VIT D 400 IU TAB PO SCH ×2 (09:17→20:00)
[2023-05-31] MEDS: ARTIFICIAL TEARS OP SCH (09:18)
--- NOTE | 2023-05-31 10:27 | Nephrology Progress Note ---
Date of Service May 31, 2023 Assessment & Plan Admission and Anticipated Discharge Date Admission Date: May 15, 2023 Subjective Assessment & Plan (1) Anasarca: Plan: Na started dropping as soon as we Stopped iv lasix--not a good sign. restart lasix 100 iv q8hr with 25% albumin Consider Palliative med/Comfort care. However she claims she was told that she will be a Liver transplant candidate. Would ask GI about Transplant vs TIPS etc. her MELD score is not that high but Fluid management is essentially terminal. Needing massive Diuretics -pretty much 100 iv lasix q8h every day !! -continue daily STANDING weight and strict I/O ordered -continue FR 1.2L daily (2) DOLORES (acute kidney injury): Plan: Patient with acute kidney injury with admission creatinine of 1.3 from a baseline of 0.7. Creatinine is plateau'd 1.2-1.3. Will continue diuretics and monitor renal function with daily BMP. Will avoid nephrotoxins such as contrast. Creat slowly improving. (3) Acute hyponatremia: Plan: hypervolemic hyponatremia in the setting of decompensated cirrhosis with ascites and massive edema. Will continue aggressive diuresis and fluid restriction. na started dropping as soon as we stopped iv lasix. Lasix 100 iv q8h and metolazone and Aldactone Subjective breathing improved but very weak. edema still ++ Urine was only 1700 ml without iv lasix but increased to 5100 ml yesterday after iv lasix. Review of Systems Review of Systems: All systems reviewed & are unremarkable except as noted in Subjective Physical Exam Constitutional: well developed, + obese, + frail appearing and cooperative; no acute distress Eyes: EOM intact bilaterally ENMT: Ears: no external ear abnormality Nose: no external nose abnormality Mouth: + dry oral mucous membranes Neck: no nuchal rigidity Respiratory: + labored breathing, able to speak in co mplete sentences and + tachypneic Auscultation: + diminished lung sounds Cardiovascular: Rate/Rhythm: regular rhythm and + tachycardic Extremities: + edema (4+) Gastrointestinal (Abdomen): Inspection/Auscultation: normal bowel sounds Percussion/Palpation: + abdomen tender (RUQ, periumbilical lalo on L) and abdomen soft; no ascites Musculoskeletal: Extremities: strength 5/5 throughout Skin: no rashes, warm and dry Neurologic: tremor + Psychiatric: Orientation: alert and oriented x 3 Results & Data Vital Signs (Past 12 Hours) Vital Signs Temp Pulse Pulse Resp BP Pulse Ox O2 Del Method 05/31/23 07:29 36.7 C 98 H 18 144/73 H 96 Room Air 05/31/23 07:08 96 H 05/31/23 03:02 36.5 C 96 H 17 107/62 95 Room Air 05/30/23 23:14 36.7 C 97 H 17 108/55 L 94 Room Air
--- NOTE | 2023-05-31 11:29 | Ultrasound Report ---
US abdomen ltd ascites CLINICAL HISTORY: check for ascites. Abdominal distention. COMPARISON STUDY: Abdominal ultrasound 05/17/2023. FINDINGS: Real-time sonographic imaging of the abdomen was performed with quality control representative images submi tted. There is a small to moderate amount of ascites which is similar to the prior study. Hepatic cir rhosis again noted. IMPRESSION: Small to moderate amount of ascites. ACT 112: Negative or not required by law. Electronically signed by: Sylvester Sorensen M.D. 05/31/2023 11:27 AM
--- NOTE | 2023-05-31 11:32 | Gastroenterology Progress Note ---
Date of Service May 31, 2023 Assessment & Plan (1) DOLORES (acute kidney injury): (2) Liver cirrhosis secondary to ADRIAN: (3) Acute diastolic (congestive) heart failure: Plan: Pt is a 73 female w NAFL cirrhosis (MELD 22) admitted w anasarca, likely related to DOLORES, heart failure and decompensation of liver cirrhosis. GI asked to re-eval pt to determine if she may be TIPS or liver transplant candidate. Currently on these diuretics: Metolazone 5mg BID, Spironolactone 100mg daily, Lasix 100mg IV q8hrs. Been diuresing but having hyponatremia. - Diuretic management per Nephrology - Monitor renal function and electrolytes closely - Strict I&Os, daily weights - Albumin IV as ordered - 2g Na diet, 1.2L fluid restriction - Repeat limited US to eval for ascites amt, paracentesis if present for diagnostic studies - Can add Midodrine if hypotension occurs w hyponatremia - Given high MELD, not a TIPS candidate given poorer outcome & high risk - Discussed process of liver transplant evaluation if she is interested, and gave her list of liver transplant centers. She would like to be evaluated at [facility]. She's quite deconditioned, thus continuing physical therapy for strengthening and conditioning would be recommended. No urgent need to transfer to [facility] for liver transplant evaluation over the weekend. Admission and Anticipated Discharge Date Admission Date: May 15, 2023 Supervising Physician Co-Signing Physician Notes I personally saw and evaluated the patient on 05/17/2023 with RAKEL Benjamin and agree with her findings and plan of care. Patient with significant anasarca on exam. 4+ lower extremity swelling to the thighs and small ascites on exam but hard to appreciate due to significant abdominal wall edema. AAOx3 without asterixis. MELD-Na 22. Patient with history of decompensated ADRIAN cirrhosis c/b HE and ascites admitted with volume overload reports a 30 lb weight gain in 2-[address] Elizabeth in the outpatient setting. Will defer diuretic management to nephrology who has been managing this. Not likely a TIPS candidate due to MELD 22 [place] PT/OT Needs OLT eval Subjective Pt feels weak, denies CP, SOB. + nausea, no abd pain Review of Systems Review of Systems: All systems reviewed & are unremarkable except as noted in HPI & below Physical Exam Constitutional: WD/WN, vitals as above well groomed, cooperative and comfortable Eyes: PERRL, conjunctivae normal, anicteric sclerae ENMT: external ear and nose normal, oropharynx normal Respiratory: normal respiratory effort, lungs clear to auscultation Cardiovascular: RRR, no murmur, no edema Gastrointestinal (Abdomen): normal bowel sounds, soft, nontender, no hepatosplenomegaly Skin: no rashes, warm and dry no jaundice Psychiatric: A+Ox3, euthymic affect Lymphatic: + lymphedema (+2 pitting edema on bilate ral LE ) Results & Data Vital Signs (Past 12 Hours) Vital Signs Temp Pulse Pulse Resp BP Pulse Ox O2 Del Method 05/31/23 11:08 Room Air 05/31/23 07:29 36.7 C 98 H 18 144/73 H 96 Room Air 05/31/23 07:08 96 H 05/31/23 03:02 36.5 C 96 H 17 107/62 95 Room Air
[2023-05-31 12:52] LABS: Albumin Peritoneal Fluid < 1.5 gm/dl
--- NOTE | 2023-05-31 12:53 | Ultrasound Report ---
ULTRASOUND-GUIDED PARACENTESIS CLINICAL HISTORY: Ascites PROCEDURE: Procedure and risks were explained. Informed consent was obtained. A final timeout was com pleted. The abdomen was prepped and draped in sterile fashion. 1% buffered lidocaine was utilized for skin anesthesia. Utilizing ultrasound guidance, a 5 Brazilian safety centesis catheter was advanced into the right lower quadrant pocket of ascites. Ultrasound images were obtained. A total of 2 L of ascites fluid was rosalinda demond and sent to the lab. The catheter was removed and Band-Aid applied. The patient tolerated the pro cedure well. Vital signs will be monitored prior to discharge. IMPRESSION: Ultrasound-guided paracentesis as above. Performed, dictated, and signed by Jd Gold PA-C; to be co-signed by Dr. Jorge Luis Gann. Electronically signed by: Jorge Luis Gann M.D. 05/31/2023 1:27 PM
[2023-05-31 12:58] LABS: Total Protein Peritoneal Fluid < 3.0 gm/dl
[2023-05-31 13:23] LABS: Appearance Peritoneal Fluid Clear; Color Peritoneal Fluid Yellow; Lymphocytes, Fluid 53 %; Mono,Macrophage,Mesothelial 41 %; Neutrophils, Fluid 6 %; RBC Peritoneal Fluid Auto < 2000 /uL; WBC Peritoneal Fluid Auto 234 /ul (0-300)
--- NOTE | 2023-05-31 18:03 | Hospitalist Progress Note ---
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 From chart review patient was 72 kg in March and 101 kg at presentation this time. Patient presented with generalized body edema associated with shortness of breath, increase in weight. 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 H/O decompensation w/ ascites, HE Patient reports taking torsemide 100 mg daily since February. --CXR: Pulmonary vascular congestion without overt pulmonary edema. No significant change in marked elevation of the right hemidiaphragm. --02/28/2023 echo: EF 65 to 70%, grade 1 diastolic dysfunction, mild concentric LVH. --05/16/23 ECHO: Ejection fraction greater than 70%, grade 1 diastolic dysfunction, no pericardial effusion. - MELD-Na:17 on admission --S/P paracentesis on 05/31/23: 2 L removed -Follows Dr. Elizabeth - No evidence of HE on exam, c/w lactulose --Appreciate GI Input -Appreciate Nephrology Input --continue metolazone, spironolactone 100mg -- IV Lasix 100 mg 3 times daily transitioned to Bumex 4 mg twice daily -- As sodium levels dropped, patient was placed back on IV diuretics as per nephrology Monitor Volume status, I/Os Continue fluid restriction Nephrology following Changed to metolazone to 5 mg daily Monitor sodium levels Discussed with GI on 05/31/2023: Given high meld, not a candidate for TIPS. Currently no urgent need for liver transplant evaluation as per GI. Needs follow-up with liver transplant team as outpatient Will consider palliative care Continue IV diuresis Chronic hyponatremia: Hypervolemia contributing as well Sodium 128 today Monitor Acute renal failure: Baseline Cr around 0.75 Cr 1.2 today Avoid nephrotoxic agents as able Monitor renal function Chronic normocytic anemia -Drop in hemoglobin from baseline likely dilutional secondary to volume overload No acute bleeding issues Fe 51, ferritin 52.7, likely combo of iron deficiency/chronic disease -Started Iron supplementation Other chronic medical conditions: Continue with/resume home meds as and when able Hypertension, blood pressure remains a stable, patient being diuresed. Asthma, no acute symptoms, continue home inhalers DVT Px: Heparin SQ CODE STATUS: DNR/DNI Admission and Anticipated Discharge Date Admission Date: May 15, 2023 Subjective Patient is seen and examined at bedside Reports nausea this morning Otherwise no complaints Still has significant edema Discussed with GI and nephrology today Denies any chest pain, dyspnea, nausea, vomiting, abdominal pain Review of Systems Review of Systems: All systems reviewed & are unremarkable except as noted in Subjective Physical Exam Physical Exam: Physical Exam: Vitals signs as noted above General Appearance:Obese, Chronic ill appearing, no apparent distress Head: normocephalic, Atraumatic Eyes: normal inspection, EOMI Neck: supple, Trachea midline Respiratory/Chest: Normal breath sounds, CTA, No accessory muscle use Cardiovascular: S1, S2, No murmur Abdomen/GI:Soft, Non tender, Bowel sounds present Extremities/Musculoskeletal:normal inspection, 3+ B/L LE edema Neurologic/Psych:AAOX3, grossly no focal neurological deficits Skin: normal color, warm Results & Data Results & Data Vital Signs (Past 12 Hours) Vital Signs Temp Pulse Pulse Resp BP Pulse Ox O2 Del Method 05/31/23 15:41 36.9 C 102 H 18 05/31/23 13:40 36.7 C 90 16 106/50 L 05/31/23 12:23 36.6 C 86 16 118/54 L Room Air 05/31/23 11:08 Room Air 05/31/23 07:29 36.7 C 98 H 18 144/73 H 96 Room Air 05/31/23 07:08 96 H Laboratory Results Short CBC 05/31/23 Range/Units 05:18 WBC 5.24 (4.8-10.8) K/ul Hgb 7.2 L (12.0-16.0) g/dl Hct 21.6 L (37.0-47.0) % Plt Count 138 (130-400) K/uL BMP 05/31/23 05:18 Sodium 128 L Potassium 4.4 Chloride 88 L Carbon Dioxide 30 BUN 29 H Creatinine 1.20 Glucose 83 Calcium 9.2
[2023-05-31] MEDS: LATANOPROST 0.005% OP SOLN 2.5 ML BTL OPB SCH (20:01)
[2023-06-01] MEDS: FUROSEMIDE 10 MG/ML 10 ML VIAL IV SCH ×3 (03:37→20:08)
[2023-06-01] MEDS: PANTOprazole 40 MG TAB PO SCH (05:27)
[2023-06-01 06:00] LABS: Hematocrit (blood only) 21.7 % (37.0-47.0); Hemoglobin 7.3 g/dl (12.0-16.0); Mean Corpuscular Hemoglobin 30.3 pg (25.0-34.0); Mean Corpuscular Hgb Conc 33.6 g/dL (32.0-36.0); Mean Platelet Volume 8.9 fL (9.4-12.4); Platelet Count 129 K/uL (130-400); RDW Coefficient of Variation 21.9 % (11.5-14.5); RDW Standard Deviation 71.7 fL (36.4-46.3); Red Blood Count 2.41 M/uL (4.20-5.40)
[2023-06-01 06:11] LABS: BUN Creatinine Ratio 25.9 (10-20); Calcium 9.4 mg/dl (8.6-10.3); Est GFR (African American) 54.9 ml/min; Est GFR (Non-African American) 47.3 ml/min; Magnesium 1.3 mg/dl (1.7-2.4); Potassium 4.1 mmol/L (3.5-5.1)
[2023-06-01] MEDS: ARTIFICIAL TEARS OP SCH (09:32)
[2023-06-01] MEDS: SODIUM CHLORIDE 0.65% NA SOLN 45 ML (OCEAN) SCH ×2 (09:32→20:08)
[2023-06-01] MEDS: LACTOBACILLUS ACIDOPHILUS 1 GM PACK PO SCH (09:33)
[2023-06-01] MEDS: MAGNESIUM OXIDE 400 MG TAB PO SCH ×2 (09:33→20:06)
[2023-06-01] MEDS: FERROUS SULFATE 325 MG/7.4 ML UDP PO SCH (09:33)
[2023-06-01] MEDS: MONTELUKAST SODIUM 10 MG TABLET PO SCH (09:33)
[2023-06-01] MEDS: POT PHOSPHATE MONOBASIC W/ SOD TAB PO SCH ×2 (09:34→20:06)
[2023-06-01] MEDS: metOLazone 5 MG TABLET PO SCH ×2 (09:34→20:05)
[2023-06-01] MEDS: LACTULOSE SYRUP 30 GM/45 ML UDP PO SCH (09:34)
[2023-06-01] MEDS: CALCIUM 600MG + VIT D 400 IU TAB PO SCH ×2 (09:34→20:07)
[2023-06-01] MEDS: POTASSIUM CHLORIDE CRTAB 20 MEQ TABCR PO SCH ×2 (09:35→20:07)
[2023-06-01] MEDS: HEPARIN SOD 5,000 UNIT/0.5 ML VIAL SQ SCH ×2 (09:35→19:50)
[2023-06-01] MEDS: FLUTICASONE FUROATE 200MCG 14 PUFFS/INHALER INH SCH (09:35)
[2023-06-01] MEDS: SPIRONOLACTONE 100 MG TAB PO SCH (09:36)
[2023-06-01] MEDS: MAGNESIUM SULFATE / D5W 1 GM/100 ML BAG IV SCH ×2 (09:37→11:29)
[2023-06-01] MEDS ORDERED: LACTULOSE SYRUP 30 GM/45 ML UDP PO ONE (14:00)
--- NOTE | 2023-06-01 17:11 | Hospitalist Progress Note ---
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 From chart review patient was 72 kg in March and 101 kg at presentation this time. Patient presented with generalized body edema associated with shortness of breath, increase in weight. 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 H/O decompensation w/ ascites, HE Patient reports taking torsemide 100 mg daily since February. --CXR: Pulmonary vascular congestion without overt pulmonary edema. No significant change in marked elevation of the right hemidiaphragm. --02/28/2023 echo: EF 65 to 70%, grade 1 diastolic dysfunction, mild concentric LVH. --05/16/23 ECHO: Ejection fraction greater than 70%, grade 1 diastolic dysfunction, no pericardial effusion. - MELD-Na:17 on admission --S/P paracentesis on 05/31/23: 2 L removed -Follows Dr. Elizabeth - No evidence of HE on exam, c/w lactulose --Appreciate GI Input -Appreciate Nephrology Input --continue metolazone, spironolactone 100mg -- IV Lasix 100 mg 3 times daily transitioned to Bumex 4 mg twice daily -- As sodium levels dropped, patient was placed back on IV diuretics as per nephrology Monitor Volume status, I/Os Continue fluid restriction Nephrology following Changed to metolazone to 5 mg daily Monitor sodium levels Discussed with GI on 05/31/2023: Given high meld, not a candidate for TIPS. Currently no urgent need for liver transplant evaluation as per GI. Needs follow-up with liver transplant team as outpatient Will consider palliative care Continue IV diuresis Titrate lactulose dose as needed to target 2-3 good bowel movements per day Chronic hyponatremia: Hypervolemia contributing as well Sodium 129 today Monitor Acute renal failure: Baseline Cr around 0.75 Cr 1.1 today Avoid nephrotoxic agents as able Monitor renal function Chronic normocytic anemia -Drop in hemoglobin from baseline likely dilutional secondary to volume overload No acute bleeding issues Fe 51, ferritin 52.7, likely combo of iron deficiency/chronic disease -Started Iron supplementation Hemoglobin 7.3 today No source of bleeding Other chronic medical conditions: Continue with/resume home meds as and when able Hypertension, blood pressure remains a stable, patient being diuresed. Asthma, no acute symptoms, continue home inhalers DVT Px: Heparin SQ CODE STATUS: DNR/DNI Admission and Anticipated Discharge Date Admission Date: May 15, 2023 Subjective Patient is seen and examined at bedside No nausea today Feels feelings drowsy this morning Edema slowly improving Denies any chest pain, dyspnea, nausea, vomiting, abdominal pain Review of Systems Review of Systems: All systems reviewed & are unremarkable except as noted in Subjective Physical Exam Physical Exam: Physical Exam: Vitals signs as noted above General Appearance:Obese, Chronic ill appearing, no apparent distress Head: normocephalic, Atraumatic Eyes: normal inspection, EOMI Neck: supple, Trachea midline Respiratory/Chest: Normal breath sounds, CTA, No accessory muscle use Cardiovascular: S1, S2, No murmur Abdomen/GI:Soft, Non tender, Bowel sounds present Extremities/Musculoskeletal:normal inspection, 3+ B/L LE edema Neurologic/Psych:AAOX3, grossly no focal neurological deficits Skin: normal color, warm Results & Data Results & Data Vital Signs (Past 12 Hours) Vital Signs Temp Pulse Pulse Resp BP Pulse Ox O2 Del Method 06/01/23 15:58 110 H 06/01/23 15:16 36.7 C 109 H 16 111/61 97 Room Air 06/01/23 10:33 36.6 C 99 H 17 113/60 93 Room Air 06/01/23 07:38 100 H 06/01/23 07:10 36.6 C 100 H 19 116/58 L 94 Room Air Laboratory Results Short CBC 06/01/23 Range/Units 05:27 WBC 3.90 L (4.8-10.8) K/ul Hgb 7.3 L (12.0-16.0) g/dl Hct 21.7 L (37.0-47.0) % Plt Count 129 L (130-400) K/uL BMP 06/01/23 05:27 Sodium 129 L Potassium 4.1 Chloride 90 L Carbon Dioxide 31 BUN 30 H Creatinine 1.16 Glucose 89 Calcium 9.4
[2023-06-01] MEDS: LATANOPROST 0.005% OP SOLN 2.5 ML BTL OPB SCH (20:06)
[2023-06-01] MEDS: ACETAMINOPHEN 325 MG TAB PO PRN (20:19)
[2023-06-02] MEDS: FUROSEMIDE 10 MG/ML 10 ML VIAL IV SCH ×3 (04:49→20:44)
[2023-06-02] MEDS: PANTOprazole 40 MG TAB PO SCH (05:54)
[2023-06-02 06:35] LABS: BUN Creatinine Ratio 23.1 (10-20); Calcium 9.4 mg/dl (8.6-10.3); Creatinine Clr Calc Pharmacy 38.9 ml/min; Est GFR (African American) 54.3 ml/min; Est GFR (Non-African American) 46.8 ml/min; Magnesium 1.7 mg/dl (1.7-2.4); Potassium 4.4 mmol/L (3.5-5.1)
[2023-06-02] MEDS: ARTIFICIAL TEARS OP SCH (09:30)
[2023-06-02] MEDS: LACTOBACILLUS ACIDOPHILUS 1 GM PACK PO SCH (09:31)
[2023-06-02] MEDS: POTASSIUM CHLORIDE CRTAB 20 MEQ TABCR PO SCH ×2 (09:31→20:44)
[2023-06-02] MEDS: MAGNESIUM OXIDE 400 MG TAB PO SCH ×2 (09:32→20:44)
[2023-06-02] MEDS: HEPARIN SOD 5,000 UNIT/0.5 ML VIAL SQ SCH ×2 (09:32→20:45)
[2023-06-02] MEDS: CALCIUM 600MG + VIT D 400 IU TAB PO SCH ×2 (09:32→20:44)
[2023-06-02] MEDS: metOLazone 5 MG TABLET PO SCH ×2 (09:33→20:44)
[2023-06-02] MEDS: LACTULOSE SYRUP 30 GM/45 ML UDP PO SCH (09:33)
[2023-06-02] MEDS: SPIRONOLACTONE 100 MG TAB PO SCH (09:34)
[2023-06-02] MEDS: FERROUS SULFATE 325 MG/7.4 ML UDP PO SCH (09:34)
[2023-06-02] MEDS: FLUTICASONE FUROATE 200MCG 14 PUFFS/INHALER INH SCH (09:35)
[2023-06-02] MEDS: POT PHOSPHATE MONOBASIC W/ SOD TAB PO SCH ×2 (09:36→20:46)
[2023-06-02] MEDS: MONTELUKAST SODIUM 10 MG TABLET PO SCH (09:36)
[2023-06-02] MEDS: SODIUM CHLORIDE 0.65% NA SOLN 45 ML (OCEAN) SCH ×2 (09:36→20:45)
--- NOTE | 2023-06-02 15:30 | Hospitalist Progress Note ---
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 From chart review patient was 72 kg in March and 101 kg at presentation this time. Patient presented with generalized body edema associated with shortness of breath, increase in weight. 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 H/O decompensation w/ ascites, HE Patient reports taking torsemide 100 mg daily since February. --CXR: Pulmonary vascular congestion without overt pulmonary edema. No significant change in marked elevation of the right hemidiaphragm. --02/28/2023 echo: EF 65 to 70%, grade 1 diastolic dysfunction, mild concentric LVH. --05/16/23 ECHO: Ejection fraction greater than 70%, grade 1 diastolic dysfunction, no pericardial effusion. - MELD-Na:17 on admission --S/P paracentesis on 05/31/23: 2 L removed -Follows Dr. Elizabeth - No evidence of HE on exam, c/w lactulose --Appreciate GI, Nephrology Input --continue metolazone, spironolactone 100mg Monitor Volume status, I/Os Continue fluid restriction Continue metolazone 5 mg BID, Aldactone 100 mg daily Monitor sodium levels Discussed with GI on 05/31/2023: Given high meld, not a candidate for TIPS. Currently no urgent need for liver transplant evaluation as per GI. Needs follow-up with liver transplant team as outpatient Will consider palliative care Continue IV diuresis--Lasix 100 mg 3 times daily Titrate lactulose dose as needed to target 2-3 good bowel movements per day Continue current management Chronic hyponatremia: Hypervolemia contributing as well Sodium 128 today Monitor Acute renal failure: Baseline Cr around 0.75 Cr 1.1 today Avoid nephrotoxic agents as able Monitor renal function Chronic normocytic anemia -Drop in hemoglobin from baseline likely dilutional secondary to volume overload No acute bleeding issues Fe 51, ferritin 52.7, likely combo of iron deficiency/chronic disease -Started Iron supplementation Hemoglobin 7.3 No source of bleeding Other chronic medical conditions: Continue with/resume home meds as and when able Hypertension, blood pressure remains a stable, patient being diuresed. Asthma, no acute symptoms, continue home inhalers DVT Px: Heparin SQ CODE STATUS: DNR/DNI Admission and Anticipated Discharge Date Admission Date: May 15, 2023 Subjective Patient is seen and examined at bedside Offers no new complaints Leg edema much improved Denies any chest pain, dyspnea, nausea, vomiting, abdominal pain Lying in bed comfortably during my exam Review of Systems Review of Systems: All systems reviewed & are unremarkable except as noted in Subjective Physical Exam Physical Exam: Physical Exam: Vitals signs as noted above General Appearance:Obese, Chronic ill appearing, no apparent distress Head: normocephalic, Atraumatic Eyes: normal inspection, EOMI Neck: supple, Trachea midline Respiratory/Chest: Normal breath sounds, CTA, No accessory muscle use Cardiovascular: S1, S2, No murmur Abdomen/GI:Soft, Non tender, Bowel sounds present Extremities/Musculoskeletal:normal inspection, 3+ B/L LE edema Neurologic/Psych:AAOX3, grossly no focal neurological deficits Skin: normal color, warm Results & Data Results & Data Vital Signs (Past 12 Hours) Vital Signs Temp Pulse Pulse Resp BP Pulse Ox O2 Del Method 06/02/23 11:33 36.6 C 99 H 17 101/55 L 94 Room Air 06/02/23 08:50 93 H 06/02/23 07:27 36.6 C 92 H 17 109/64 96 Room Air Laboratory Results [facility] 06/02/23 05:27 Sodium 128 L Potassium 4.4 Chloride 89 L Carbon Dioxide 31 BUN 27 H Creatinine 1.17 Glucose 95 Calcium 9.4
[2023-06-02] MEDS: LATANOPROST 0.005% OP SOLN 2.5 ML BTL OPB SCH (20:45)
[2023-06-03] MEDS: FUROSEMIDE 10 MG/ML 10 ML VIAL IV SCH (05:00)
[2023-06-03] MEDS: PANTOprazole 40 MG TAB PO SCH (05:30)
[2023-06-03 06:08] LABS: Hematocrit (blood only) 24.2 % (37.0-47.0); Mean Corpuscular Hemoglobin 30.1 pg (25.0-34.0); Mean Corpuscular Hgb Conc 33.1 g/dL (32.0-36.0); Mean Platelet Volume 8.6 fL (9.4-12.4); Platelet Count 151 K/uL (130-400); RDW Coefficient of Variation 22.1 % (11.5-14.5); RDW Standard Deviation 73.8 fL (36.4-46.3); Red Blood Count 2.66 M/uL (4.20-5.40); White Blood Count 7.28 K/ul (4.8-10.8)
[2023-06-03 06:24] LABS: BUN Creatinine Ratio 23.6 (10-20); Calcium 9.2 mg/dl (8.6-10.3); Est GFR (African American) 51.1 ml/min; Est GFR (Non-African American) 44.1 ml/min; Magnesium 1.6 mg/dl (1.7-2.4); Potassium 4.4 mmol/L (3.5-5.1)
[2023-06-03] MEDS: FERROUS SULFATE 325 MG/7.4 ML UDP PO SCH (08:38)
[2023-06-03] MEDS: LACTULOSE SYRUP 30 GM/45 ML UDP PO SCH (08:38)
[2023-06-03] MEDS: POT PHOSPHATE MONOBASIC W/ SOD TAB PO SCH ×2 (08:40→21:07)
[2023-06-03] MEDS: metOLazone 5 MG TABLET PO SCH (08:40)
[2023-06-03] MEDS: LACTOBACILLUS ACIDOPHILUS 1 GM PACK PO SCH (08:40)
[2023-06-03] MEDS: POTASSIUM CHLORIDE CRTAB 20 MEQ TABCR PO SCH ×2 (08:41→21:07)
[2023-06-03] MEDS: SPIRONOLACTONE 100 MG TAB PO SCH (08:41)
[2023-06-03] MEDS: SODIUM CHLORIDE 0.65% NA SOLN 45 ML (OCEAN) SCH ×2 (08:41→21:08)
[2023-06-03] MEDS: MONTELUKAST SODIUM 10 MG TABLET PO SCH (08:41)
[2023-06-03] MEDS: CALCIUM 600MG + VIT D 400 IU TAB PO SCH ×2 (08:41→21:08)
[2023-06-03] MEDS: FLUTICASONE FUROATE 200MCG 14 PUFFS/INHALER INH SCH (08:41)
[2023-06-03] MEDS: HEPARIN SOD 5,000 UNIT/0.5 ML VIAL SQ SCH ×2 (08:42→21:06)
[2023-06-03] MEDS: ARTIFICIAL TEARS OP SCH (08:42)
[2023-06-03] MEDS: MAGNESIUM OXIDE 400 MG TAB PO SCH ×2 (08:42→21:08)
--- NOTE | 2023-06-03 09:35 | Nephrology Progress Note ---
Date of Service June 03, 2023 Assessment & Plan (1) Anasarca: Plan: Patient with over 20 pound weight gain in the past 1 month prior to admission. standing wt 05/21/23 95.9 kg, to 92.3 on 05/22. Will stop IV Lasix. Will change to torsemide 100 mg twice daily. -Will continue Aldactone 100 mg daily and metolazone 5 mg daily. -K supplement to 60 mEq bid for now -continue daily STANDING weight and strict I/O ordered -continue FR 1.2L daily (2) DOLORES (acute kidney injury): Plan: Patient with acute kidney injury with admission creatinine of 1.3 from a baseline of 0.7. Creatinine is plateau'd 1.2-1.3. She has hypokalemia. This is due to cardiorenal syndrome. 700 mg proteinuria on eval; albumin 2.2 on admission likely diluted. Will continue diuretics and monitor renal function with daily BMP. Will avoid nephrotoxins such as contrast. MOdified potassium chloride dose as above. (3) Acute hyponatremia: Plan: improving hypervolemic hyponatremia in the setting of decompensated cirrhosis with ascites and massive edema. Will continue aggressive diuresis and fluid restriction Admission and Anticipated Discharge Date Admission Date: May 15, 2023 Subjective Seen for hyponatremia and volume overload. She feels better today. Leg swelling is subsiding. No shortness of breath. She is ambulating with a walker. She is interested in going to rehab Review of Systems 2 Review of Systems: All other systems were reviewed and negative except as noted in HPI Physical Exam 2 Physical Exam: General exam: Appears comfortable, no acute distress HEENT: Pupils are equal and reactive to light Neck: No JVD, neck is supple trachea is midline Respiratory system: Clear breath sounds bilaterally. Gastrointestinal: Abdomen is soft, massively distended, non tender, bowel sounds are present CVS: Regular rate and rhythm. No murmurs, rubs or gallops Musculoskeletal: No joint or muscle tenderness Extremities: Non tender, 2+ edema, peripheral pulses are present Neuro: Oriented, no tremors, no focal neurological deficits Skin: No rashes Results & Data Vital Signs (Past 12 Hours) Vital Signs Temp Pulse Pulse Resp BP Pulse Ox O2 Del Method 06/03/23 08:00 Room Air 06/03/23 07:18 36.9 C 95 H 18 127/64 95 Room Air 06/03/23 02:51 106 H 16 116/64 97 Room Air 06/02/23 23:01 36.6 C 105 H 16 125/63 95 Room Air 06/02/23 23:00 102 H Laboratory Results 06/03/23 05:24 06/03/23 05:24 WBC 7.28 RBC 2.66 L MCV 91.0 MCH 30.1 MCHC 33.1 RDW Std Deviation 73.8 H RDW Coeff of Monster 22.1 H Plt Count 151 MPV 8.6 L
--- NOTE | 2023-06-03 09:37 | Gastroenterology Progress Note ---
Date of Service June 03, 2023 Assessment & Plan (1) Liver cirrhosis secondary to ADRIAN: (2) Anasarca: Plan 1. Continue diuretics per Nephrology. 2. Will check MELD labs tomorrow. 3. PT/OT for general strengthening. 4. 2Gm sodium diet. 5. No alcohol. Avoid liver toxic meds. 6. OP GI f/u with Hepatology. Admission and Anticipated Discharge Date Admission Date: May 15, 2023 Subjective 73 yr, female w CHF, NAFLD cirrhosis complicated by prior Hep enceph and ascites/peripheral edema Admitted 05/17 in fluid overload. Diuretics managed during this admission by nephrology/cardiology. Currently on Spironolactone 100mg daily Torsemide 100mg daily. Peripheral edema much improved per pt and nursing and visible wrinkles in the skin of the lower legs (still 2+), minimal thigh or abdomen edema. Mild ascites. MELD was documented at 17 on 05/17. Improving but INR not checked since 05/29, bili not checked since 05/28 using most recent labs available MELD now 14. Paracentesis on 05/31 w removal of 2L No SBP (235WBCs, 2000RBCs, 6% neutrophils no growth on culture). Pt is awake, alert, oriented. HCC screening negative in Mar (CTAP w IV contrast w cirrhosis, no lesion). Screening for EV August 2022: grade I EV (prior grade 3 banded). Review of Systems Review of Systems: ROS: Gen: +generalized weakness but able to ambulate to toilet w assist and feed self Eyes: No eye redness, or pain, no recent vision changes Resp: Denies SOB, cough Cardio: No palpitations/irregular beats, no chest pain GI: No abdominal pain, no nausea/vomiting : Denies pain on urination Skin: No jaundice, itching or new rashes Physical Exam Constitutional: WD/WN, vitals as above Eyes: PERRL, conjunctivae normal, anicteric sclerae ENMT: external ear and nose normal, oropharynx normal Neck: trachea midline, no thyromegaly Respiratory: normal respiratory effort, lungs clear to auscultation Cardiovascular: RRR, no murmurs; 2+ pre tibial edema, minimal thigh/abd edema Gastrointestinal (Abdomen): normal bowel sounds, soft, nontender, no hepatosplenomegaly (Mild ascites) Skin: no jaundice or rashes Psychiatric: A+Ox3, euthymic affect Results & Data Vital Signs (Past 12 Hours) Vital Signs Temp Pulse Pulse Resp BP Pulse Ox O2 Del Method 06/03/23 08:00 Room Air 06/03/23 07:18 36.9 C 95 H 18 127/64 95 Room Air 06/03/23 02:51 106 H 16 116/64 97 Room Air 06/02/23 23:01 36.6 C 105 H 16 125/63 95 Room Air 06/02/23 23:00 102 H Laboratory Results WBC 7.28, Hb 8, Hct 24, Plts 151, Na 127, K 4.4, Cl 89, CO2 29, BUN 1.23, glucose 97. See paracentesis fluid analysis in HPI.
[2023-06-03] MEDS: TORSEMIDE 100 MG TAB PO SCH ×2 (10:14→16:15)
[2023-06-03] MEDS ORDERED: MAGNESIUM SULFATE / D5W 1 GM/100 ML BAG IV ONE (10:15)
--- NOTE | 2023-06-03 16:55 | Hospitalist Progress Note ---
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 From chart review patient was 72 kg in March and 101 kg at presentation this time. Patient presented with generalized body edema associated with shortness of breath, increase in weight. 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 H/O decompensation w/ ascites, HE Patient reports taking torsemide 100 mg daily since February. --CXR: Pulmonary vascular congestion without overt pulmonary edema. No significant change in marked elevation of the right hemidiaphragm. --02/28/2023 echo: EF 65 to 70%, grade 1 diastolic dysfunction, mild concentric LVH. --05/16/23 ECHO: Ejection fraction greater than 70%, grade 1 diastolic dysfunction, no pericardial effusion. - MELD-Na:17 on admission --S/P paracentesis on 05/31/23: 2 L removed -Follows Dr. Elizabeth - No evidence of HE on exam, c/w lactulose --Appreciate GI, Nephrology Input --continue metolazone, spironolactone 100mg Monitor Volume status, I/Os Continue metolazone 5 mg BID, Aldactone 100 mg daily Monitor sodium levels Discussed with GI on 05/31/2023: Given high meld, not a candidate for TIPS. Currently no urgent need for liver transplant evaluation as per GI. Needs follow-up with liver transplant team as outpatient Will consider palliative care IV Lasix 100 mg 3 times daily>> transition to torsemide 100 mg twice a day Titrate lactulose dose as needed to target 2-3 good bowel movements per day Continue fluid restriction Recheck MELD score tomorrow Chronic hyponatremia: Hypervolemia contributing as well Sodium 127 today Monitor Acute renal failure: Baseline Cr around 0.75 Cr 1.23 today Avoid nephrotoxic agents as able Monitor renal function Chronic normocytic anemia -Drop in hemoglobin from baseline likely dilutional secondary to volume overload No acute bleeding issues Fe 51, ferritin 52.7, likely combo of iron deficiency/chronic disease -Started Iron supplementation Hemoglobin 8.0 today No source of bleeding Other chronic medical conditions: Continue with/resume home meds as and when able Hypertension, blood pressure remains a stable, patient being diuresed. Asthma, no acute symptoms, continue home inhalers DVT Px: Heparin SQ CODE STATUS: DNR/DNI Admission and Anticipated Discharge Date Admission Date: May 15, 2023 Subjective Patient is seen and examined at bedside No new complaints Volume status continues to improve Denies any chest pain, dyspnea, nausea, vomiting, abdominal pain Transition to p.o. diuretics today Review of Systems Review of Systems: All systems reviewed & are unremarkable except as noted in Subjective Physical Exam Physical Exam: Physical Exam: Vitals signs as noted above General Appearance:Obese, Chronic ill appearing, no apparent distress Head: normocephalic, Atraumatic Eyes: normal inspection, EOMI Neck: supple, Trachea midline Respiratory/Chest: Normal breath sounds, CTA, No accessory muscle use Cardiovascular: S1, S2, No murmur Abdomen/GI:Soft, Non tender, Bowel sounds present Extremities/Musculoskeletal:normal inspection, 3+ B/L LE edema Neurologic/Psych:AAOX3, grossly no focal neurological deficits Skin: normal color, warm Results & Data Results & Data Vital Signs (Past 12 Hours) Vital Signs Temp Pulse Resp BP Pulse Ox O2 Del Method 06/03/23 15:08 36.7 C 102 H 19 108/64 94 Room Air 06/03/23 10:41 36.8 C 100 H 19 126/66 95 Room Air 06/03/23 08:00 Room Air 06/03/23 07:18 36.9 C 95 H 18 127/64 95 Room Air Laboratory Results Short CBC 06/03/23 Range/Units 05:24 WBC 7.28 (4.8-10.8) K/ul Hgb 8.0 L (12.0-16.0) g/dl Hct 24.2 L (37.0-47.0) % Plt Count 151 (130-400) K/uL BMP 06/03/23 05:24 Sodium 127 L Potassium 4.4 Chloride 89 L Carbon Dioxide 29 BUN 29 H Creatinine 1.23 H Glucose 97 Calcium 9.2
[2023-06-03] MEDS: LATANOPROST 0.005% OP SOLN 2.5 ML BTL OPB SCH (21:09)
[2023-06-04] MEDS: PANTOprazole 40 MG TAB PO SCH (05:36)
[2023-06-04 06:50] LABS: INR 1.3 (0.9-1.1); Prothrombin Time 13.7 Seconds (9.0-12.0)
[2023-06-04 06:57] LABS: Albumin Globulin Ratio 1.1 (0.9-2); Albumin Level 3.3 gm/dl (3.4-5.0); BUN Creatinine Ratio 29.8 (10-20); Bilirubin,Total 1.8 mg/dl (0.2-1.0); Creatinine Clr Calc Pharmacy 39.7 ml/min; Est GFR (Non-African American) 48.3 ml/min; Globulin 3.1 gm/dl (2.5-4.0); Magnesium 1.7 mg/dl (1.7-2.4); Potassium 4.3 mmol/L (3.5-5.1); Total Protein 6.4 gm/dl (6.0-8.3)
[2023-06-04] MEDS ORDERED: metOLazone 5 MG TABLET PO SCH (09:00)
[2023-06-04] MEDS: POT PHOSPHATE MONOBASIC W/ SOD TAB PO SCH ×2 (09:13→21:14)
[2023-06-04] MEDS: SPIRONOLACTONE 100 MG TAB PO SCH (09:13)
[2023-06-04] MEDS: MONTELUKAST SODIUM 10 MG TABLET PO SCH (09:14)
[2023-06-04] MEDS: TORSEMIDE 100 MG TAB PO SCH ×2 (09:14→17:36)
[2023-06-04] MEDS: CALCIUM 600MG + VIT D 400 IU TAB PO SCH ×2 (09:14→21:14)
[2023-06-04] MEDS: LACTOBACILLUS ACIDOPHILUS 1 GM PACK PO SCH (09:15)
[2023-06-04] MEDS: MAGNESIUM OXIDE 400 MG TAB PO SCH ×2 (09:15→21:13)
[2023-06-04] MEDS: POTASSIUM CHLORIDE CRTAB 20 MEQ TABCR PO SCH ×2 (09:15→21:13)
[2023-06-04] MEDS: FLUTICASONE FUROATE 200MCG 14 PUFFS/INHALER INH SCH (09:16)
[2023-06-04] MEDS: HEPARIN SOD 5,000 UNIT/0.5 ML VIAL SQ SCH ×2 (09:16→21:14)
[2023-06-04] MEDS: LACTULOSE SYRUP 30 GM/45 ML UDP PO SCH (09:16)
[2023-06-04] MEDS: FERROUS SULFATE 325 MG/7.4 ML UDP PO SCH (09:16)
[2023-06-04] MEDS: ARTIFICIAL TEARS OP SCH (10:27)
[2023-06-04] MEDS: SODIUM CHLORIDE 0.65% NA SOLN 45 ML (OCEAN) SCH ×2 (10:27→21:16)
--- NOTE | 2023-06-04 10:35 | Nephrology Progress Note ---
Date of Service June 04, 2023 Assessment & Plan (1) Anasarca: Plan: Patient with over 20 pound weight gain in the past 1 month prior to admission. standing wt 05/21/23 95.9 kg, to 92.3 on 05/22. on 06/04 67.2. concern that she has worsening hyponatremia w/ changing to po diuretics from IV and will reevaluate Na studies and trends. -cont torsemide 100 mg twice daily. -Will continue Aldactone 100 mg daily and metolazone 5 mg daily. >>will wait to see levels in AM and consider reducing aldactone or/and metolazone >>will repeat sodium studies -K supplement to continue at 20 mEq bid for now -continue daily STANDING weight and strict I/O ordered -continue FR 1.2L daily -daily bmp while here she is 2.6 L negative on the day today which is more than adequate. she had since 05/21 diuresed 30% of her body weight through 06/04; NEPHROLOGY D/C RECOMMENDATIONS (preliminary; do not personally feel she's ready for d/c or rehab d/t vol ) -continue torsemide 100 mg bid17, aldactone 100 mg daily, metolazone 5 mg daily, K 20 meq bid -<2 gm daily Na diet and 1.2 L FR to continue -daily STANDING weight at 0630 pls after d/c and bring weight log to f/u appts w/ PCP, nephro, cardiology -weekly bmp -if unable to weigh daily then MWF at 0630 and bring log as above -hospital d/c appt w/ Dr Foster in [place] 3-4 wks w/ bmp, urine osms, serum osms, rd urine sodium all to be ordered by neph nurse Care coordinated w/ Dr Hawkins and SHERLEY Zhong. (2) DOLORES (acute kidney injury): Plan: Patient with acute kidney injury with admission creatinine of 1.3 from a baseline of 0.7. Creatinine is plateau'd 1.2-1.3. She has hypokalemia. This is due to cardiorenal syndrome. 700 mg proteinuria on eval; albumin 2.2 on admission likely diluted. Will continue diuretics and monitor renal function with daily BMP. Will avoid nephrotoxins such as contrast. Given her aggressive diuretic requirement creatinine 1.1-1.3 may be her new baseline (3) Acute hyponatremia: Plan: improving hypervolemic hyponatremia in the setting of decompensated cirrhosis with ascites and massive edema. Will continue aggressive diuresis and fluid restriction -if still here in AM will recheck sodium labs Admission and Anticipated Discharge Date Admission Date: May 15, 2023 Subjective started po diuretics yesterday am; wt today 67.2; consideration underway of transfer to [facility] ; still tired and weak; no sob, no confusion Review of Systems 2 Review of Systems: All systems reviewed & are unremarkable except as noted in Subjective Physical Exam 2 Constitutional: well developed, + obese, + frail appearing and cooperative; no acute distress Eyes: EOM intact bilaterally ENMT: Ears: no external ear abnormality Nose: no external nose abnormality Mouth: + dry oral mucous membranes Neck: no nuchal rigidity Respiratory: normal respiratory effort and able to speak in complete sentences; no labored breathing and not tachypneic Auscultation: + diminished lung sounds Cardiovascular: Rate/Rhythm: regular rhythm and + tachycardic Extremities: + edema (pedal 4+; 2-3+ BLE pretibial; no dependent) Gastrointestinal (Abdomen): Inspection/Auscultation: normal bowel sounds P ercussion/Palpation: abdomen soft; abdomen nontender and no ascites Musculoskeletal: Extremities: strength 5/5 throughout Skin: no rashes, warm and dry Neurologic: generalized weakness Psychiatric: Orientation: alert and oriented x 3 Results & Data Vital Signs (Past 12 Hours) Vital Signs Temp Pulse Resp BP Pulse Ox O2 Del Method 06/04/23 10:25 36.6 C 96 H 16 92/57 L 96 Room Air 06/04/23 08:00 Room Air 06/04/23 07:27 36.4 C L 92 H 16 115/63 95 Room Air 06/04/23 03:20 36.8 C 93 H 20 141/77 H 96 Room Air Laboratory Results 06/03/23 05:24 06/04/23 05:24
--- NOTE | 2023-06-04 15:56 | Hospitalist Progress Note ---
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 She reports taking torsemide 100 mg daily since February and has not shown any improvement of the edema. From chart review patient was 72 kg in March and 101 kg at presentation this time. Patient presented with generalized body edema associated with shortness of breath, increase in weight. 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 H/O decompensation w/ ascites, HE Patient reports taking torsemide 100 mg daily since February. --CXR: Pulmonary vascular congestion without overt pulmonary edema. No significant change in marked elevation of the right hemidiaphragm. --02/28/2023 echo: EF 65 to 70%, grade 1 diastolic dysfunction, mild concentric LVH. --05/16/23 ECHO: Ejection fraction greater than 70%, grade 1 diastolic dysfunction, no pericardial effusion. - MELD-Na:17 on admission --S/P paracentesis on 05/31/23: 2 L removed -Follows Dr. Elizabeth - No evidence of HE on exam, c/w lactulose --Appreciate GI, Nephrology Input --continue metolazone, spironolactone 100mg Monitor Volume status, I/Os Continue metolazone 5 mg BID, Aldactone 100 mg daily Monitor sodium levels Discussed with GI on 05/31/2023: Given high meld, not a candidate for TIPS. Currently no urgent need for liver transplant evaluation as per GI. Needs follow-up with liver transplant team as outpatient Will consider palliative care IV Lasix 100 mg 3 times daily>> transition to torsemide 100 mg twice a day Titrate lactulose dose as needed to target 2-3 good bowel movements per day Continue fluid restriction Continue diuresis per nephrology MELD Na today 23 (worsening) Consider to discharge home once sodium levels stabilize Chronic hyponatremia: Hypervolemia contributing as well Sodium 126 today Monitor Acute renal failure: Baseline Cr around 0.75 Cr 1.1 today Avoid nephrotoxic agents as able Monitor renal function Chronic normocytic anemia -Drop in hemoglobin from baseline likely dilutional secondary to volume overload No acute bleeding issues Fe 51, ferritin 52.7, likely combo of iron deficiency/chronic disease -Started Iron supplementation Hemoglobin 8.0 No source of bleeding Other chronic medical conditions: Continue with/resume home meds as and when able Hypertension, blood pressure remains a stable, patient being diuresed. Asthma, no acute symptoms, continue home inhalers DVT Px: Heparin SQ CODE STATUS: DNR/DNI Admission and Anticipated Discharge Date Admission Date: May 15, 2023 Subjective Patient is seen and examined at bedside Offers no complaints Sodium levels declining Volume status improved Denies any chest pain, dyspnea, nausea, vomiting, abdominal pain Review of Systems Review of Systems: All systems reviewed & are unremarkable except as noted in Subjective Physical Exam Physical Exam: Physical Exam: Vitals signs as noted above General Appearance:Obese, Chronic ill appearing, no apparent distress Head: normocephalic, Atraumatic Eyes: normal inspection, EOMI Neck: supple, Trachea midline Respiratory/Chest: Normal breath sounds, CTA, No accessory muscle use Cardiovascular: S1, S2, No murmur Abdomen/GI:Soft, Non tender, Bowel sounds present Extremities/Musculoskeletal:normal inspection, 3+ B/L LE edema Neurologic/Psych:AAOX3, grossly no focal neurological deficits Skin: normal color, warm Results & Data Results & Data Vital Signs (Past 12 Hours) Vital Signs Temp Pulse Pulse Resp BP Pulse Ox O2 Del Method 06/04/23 15:16 89 06/04/23 14:17 36.7 C 102 H 18 109/66 96 Room Air 06/04/23 12:59 114/57 L 06/04/23 10:25 36.6 C 96 H 16 92/57 L 96 Room Air 06/04/23 08:00 Room Air 06/04/23 07:27 36.4 C L 92 H 16 115/63 95 Room Air Laboratory Results [facility] 06/04/23 05:24 Sodium 126 L Potassium 4.3 Chloride 88 L Carbon Dioxide 29 BUN 34 H Creatinine 1.14 Glucose 85 Calcium 9.0 Liver Function 06/04/23 Range/Units 05:24 Total Bilirubin 1.8 H (0.2-1.0) mg/dl AST 34 (13-39) U/L ALT 14 (7-52) U/L Alkaline Phosphatase 116 H (34-104) U/L Albumin 3.3 L (3.4-5.0) gm/dl
[2023-06-04] MEDS: LATANOPROST 0.005% OP SOLN 2.5 ML BTL OPB SCH (21:15)
[2023-06-04] MEDS: ONDANSETRON INJ 2 MG/ML 2 ML VIAL IV PRN (23:55)
[2023-06-05] MEDS: PANTOprazole 40 MG TAB PO SCH (05:29)
[2023-06-05 06:45] LABS: Hematocrit (blood only) 23.9 % (37.0-47.0); Hemoglobin 7.9 g/dl (12.0-16.0); Mean Corpuscular Hemoglobin 30.3 pg (25.0-34.0); Mean Corpuscular Hgb Conc 33.1 g/dL (32.0-36.0); Mean Corpuscular Volume 91.6 fL (80.0-100.0); Platelet Count 172 K/uL (130-400); RDW Coefficient of Variation 22.3 % (11.5-14.5); RDW Standard Deviation 74.3 fL (36.4-46.3); Red Blood Count 2.61 M/uL (4.20-5.40); White Blood Count 8.63 K/ul (4.8-10.8)
[2023-06-05 07:19] LABS: Creatinine Clr Calc Pharmacy 36.2 ml/min; Est GFR (African American) 51.6 ml/min; Est GFR (Non-African American) 44.5 ml/min; Magnesium 1.7 mg/dl (1.7-2.4); Potassium 4.9 mmol/L (3.5-5.1)
--- NOTE | 2023-06-05 08:47 | Nephrology Progress Note ---
Date of Service June 05, 2023 Assessment & Plan (1) Anasarca: Plan: Patient with over 20 pound weight gain in the past 1 month prior to admission. standing wt 05/21/23 95.9 kg, to 92.3 on 05/22. on 06/04 67.2, 06/05 64. concern that she has worsening hyponatremia w/ changing to po diuretics from IV and will reevaluate Na studies and trends. -cont torsemide 100 mg twice daily. -had been on Aldactone 100 mg daily and metolazone 5 mg daily but w/ ongoing hyponatremia, hold metolazone and reduce aldactone to 25 mg daily >> and later in day all diuretics held and pt started on NS 1L bolus then NS at 80 mL/hr x about 3 hr -lowered K supplement to 20 mEq daily for now -continue daily STANDING weight and strict I/O -continue FR 1.2L daily -daily bmp while here she is 2.4 L negative on the day today which is more than adequate. she had since 05/21 diuresed 30% of her total body weight through 06/04; >>>orthostatic today (no other positional VS on file) -diuretics helc -had some saline resuscitation -will change to albumin 24 hr x 3 x 25 gm q8h Care coordinated w/ Dr Wright NEPHROLOGY D/C RECOMMENDATIONS (preliminary; do not personally feel she's ready for d/c or rehab d/t vol ) -continue torsemide 100 mg bid17 versus other dose w/ lowered doses of aldactone, metolazone, K -<2 gm daily Na diet and 1.2 L FR to continue -daily STANDING weight at 0630 pls after d/c and bring weight log to f/u appts w/ PCP, nephro, cardiology -weekly bmp -if unable to weigh daily then MWF at 0630 and bring log as above -hospital d/c appt w/ Dr Foster in [place] 3-4 wks w/ bmp, urine osms, serum osms, rd urine sodium all to be ordered by neph nurse (2) DOLORES (acute kidney injury): Plan: Patient with acute kidney injury with admission creatinine of 1.3 from a baseline of 0.7. Creatinine is plateau'd 1.2-1.3. She has hypokalemia. This is due to cardiorenal syndrome. 700 mg proteinuria on eval; albumin 2.2 on admission likely diluted. Will continue diuretics and monitor renal function with daily BMP. Will avoid nephrotoxins such as contrast. Given her aggressive diuretic requirement creatinine 1.1-1.3 may be her new baseline (3) Acute hyponatremia: Plan: plateau'd hypervolemic hyponatremia in the setting of decompensated cirrhosis with ascites and massive edema. recheck of sodium labs 06/05 notable for unexpectedly high serum osms relative to her sNa > will r/o other pseudohyponatremia causes (though these are not likely) -lipid panel and TFTs in am -continue aggressive diuresis and fluid / sodium restriction -modify diuretics as above Admission and Anticipated Discharge Date Admission Date: May 15, 2023 Subjective seen on evening rounds. no c/o except ongoing fatigue. denies sob, denies n/v. did have + orthostatics today and getting NS at 80 mL/hr; diuretics held Review of Systems 2 Review of Systems: All systems reviewed & are unremarkable except as noted in Subjective Physical Exam 2 Constitutional: well developed, + obese, + frail appearing and cooperative; no acute distress Eyes: EOM intact bilaterally ENMT: Ears: no external ear abnormality Nose: no external nose abnormality Mouth: + dry oral mucous membranes Neck: no nuchal rigidity Respiratory: normal respiratory effort and able to speak in complete sentences; no labored breathing and not tachypneic Auscultation: + diminished lung sounds Cardiovascular: Rate/Rhythm: regular rhythm and + tachycardic Extremities: + edema (pedal 2-3+; 1+ BLE pretibial; no dependent) Gastrointestinal (Abdomen): Inspection/Auscultation: normal bowel sounds P ercussion/Palpation: abdomen soft; abdomen nontender and no ascites Musculoskeletal: Extremities: strength 5/5 throughout Skin: no rashes, warm and dry Psychiatric: Orientation: alert and oriented x 3 Results & Data Vital Signs (Past 12 Hours) Vital Signs Temp Pulse Pulse Resp BP Pulse Ox O2 Del Method 06/05/23 06:59 36.6 C 92 H 17 111/59 L 94 Room Air 06/05/23 04:10 36.6 C 96 H 20 129/56 L 95 Room Air 06/04/23 22:41 37.2 C 97 H 19 119/58 L 97 Room Air 06/04/23 21:54 99 H 06/04/23 21:30 Room Air Laboratory Results 06/05/23 05:53 06/05/23 05:53 uOSM 297 Mario 57
[2023-06-05] MEDS: ARTIFICIAL TEARS OP SCH (09:09)
[2023-06-05] MEDS: CALCIUM 600MG + VIT D 400 IU TAB PO SCH ×2 (09:09→19:34)
[2023-06-05] MEDS: MONTELUKAST SODIUM 10 MG TABLET PO SCH (09:10)
[2023-06-05] MEDS: MAGNESIUM OXIDE 400 MG TAB PO SCH ×2 (09:10→19:34)
[2023-06-05] MEDS: POTASSIUM CHLORIDE CRTAB 20 MEQ TABCR PO SCH (09:10)
[2023-06-05] MEDS: LACTULOSE SYRUP 30 GM/45 ML UDP PO SCH (09:11)
[2023-06-05] MEDS: TORSEMIDE 100 MG TAB PO SCH (09:11)
[2023-06-05] MEDS: FERROUS SULFATE 325 MG/7.4 ML UDP PO SCH (09:12)
[2023-06-05] MEDS: LACTOBACILLUS ACIDOPHILUS 1 GM PACK PO SCH (09:12)
[2023-06-05] MEDS: FLUTICASONE FUROATE 200MCG 14 PUFFS/INHALER INH SCH (09:14)
[2023-06-05] MEDS: HEPARIN SOD 5,000 UNIT/0.5 ML VIAL SQ SCH ×2 (09:15→19:36)
[2023-06-05] MEDS: POT PHOSPHATE MONOBASIC W/ SOD TAB PO SCH ×2 (09:16→19:35)
[2023-06-05] MEDS: SODIUM CHLORIDE 0.65% NA SOLN 45 ML (OCEAN) SCH ×2 (09:16→19:36)
[2023-06-05] MEDS: ONDANSETRON INJ 2 MG/ML 2 ML VIAL IV PRN (10:06)
[2023-06-05] MEDS: SPIRONOLACTONE 25 MG TAB PO SCH (10:06)
--- NOTE | 2023-06-05 12:15 | Hospitalist Progress Note ---
Date of Service June 05, 2023 Assessment & Plan (1) Acute diastolic (congestive) heart failure: Plan Patient is a 73 yr female with PMH of liver cirrhosis, COPD, hypertensive heart disease with heart failure, T2DM, paroxysmal atrial tachycardia, HTN, HLD, GERD, primary open-angle glaucoma presented to the ED 05/15 with complaint of increasing swelling of the legs and abdomen associated with exertional shortness of breath for the last 3 to 4 weeks [employer]. Admitting weight was 101kg on admission. Patient was previously on torsemide 100 mg daily since last few months. 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 H/O decompensation w/ ascites, HE Patient presented with shortness of breath and weight gain for 3 to 4 weeks. Chest x-ray on admission personally reviewed pulmonary vascular congestion without overt pulmonary edema. No significant change in marked elevation of the right hemidiaphragm. --02/28/2023 echo: EF 65 to 70%, grade 1 diastolic dysfunction, mild concentric LVH. --05/16/23 ECHO: Ejection fraction greater than 70%, grade 1 diastolic dysfunction, no pericardial effusion. --S/P paracentesis on 05/31/23: 2 L removed Diuresed with IV Lasix during the hospitalization; patient is -46 L. Nephrology on board; managing diuretics. Recommended to stop metolazone and decrease Aldactone; continue on torsemide. Discontinue Michaels; external cath if needed. Previous hospitalist discussed with GI on May 31, 2022; Given high meld, not a candidate for TIPS. Currently no urgent need for liver transplant evaluation as per GI. Needs follow-up with liver transplant team as outpatient Strict input and output monitoring. Titrate lactulose dose as needed to target 2-3 good bowel movements per day Continue fluid restriction Hyponatremia Likely hypervolemic hyponatremia along with diuretics Sodium level down trended from 130s to 126. Serum [id number]; calculated serum osmolarity 274 Metolazone on hold and Aldactone decreased Daily BMP Acute renal failure: Baseline Cr around 0.75 Creatinine around 1.1-1 .2 Avoid nephrotoxic agents as able Nephrology on board; appreciate recommendation Chronic normocytic anemia No acute bleeding issues Fe 51, ferritin 52.7, likely combo of iron deficiency/chronic disease -Started Iron supplementation Hemoglobin 8.0 No source of bleeding Other chronic medical conditions: Continue with/resume home meds as and when able Hypertension, blood pressure remains a stable, patient being diuresed. Asthma, no acute symptoms, continue home inhalers CODE STATUS: DNR/DNI DVT Px: Heparin SQ Dispopatient continues to be hospitalized due to hyponatremia. Nephrology recommended some medication adjustment. Follow-up BMP tomorrow AM. Possible DC in a.m. to rehab depending on serum sodium level. Time spent evaluating patient, direct bedside care, chart review, placing orders, interpretation of diagnostic studies, discussion with consultants, patient, and family members, as well as other required patient management activities is 50 minutes Please note the above document was generated using voice recognition software. It may contain grammatical, syntax or spelling errors. Any formal questions or concerns about the content, text or information contained within the body of this dictation should be directly addressed to the provider for clarification Admission and Anticipated Discharge Date Admission Date: May 15, 2023 Subjective Patient seen and examined at bedside. Comfortable; not in distress. She reports that she is feeling slightly tired compared to yesterday. Denies fever, chills, chest pain, shortness of breath, abdominal pain or urinary symptoms. No significant overnight events Review of Systems Review of Systems: All systems reviewed & are unremarkable except as noted in Subjective Physical Exam Physical Exam: Constitutional: Awake, alert oriented x 3; not in distress. Respiratory: Bilateral vesicular breath sound Cardiovascular: RRR, no murmur, no edema Vessels: no JVD or carotid bruit Chest: normal inspection of chest Abdomen: Slightly distended. Nontender Musculoskeletal: no cyanosis or clubbing, extremities motor strength 5/5. Minimal pitting edema. Skin: no rashes, warm and dry normal turgor Neurologic: Grossly intact Psychiatric: A+Ox3, euthymic affect Results & Data Results & Data Vital Signs (Past 12 Hours) Vital Signs Temp Pulse Resp BP Pulse Ox O2 Del Method 06/05/23 10:23 36.8 C 102 H 18 92/62 L 96 Room Air 06/05/23 10:16 Room Air 06/05/23 06:59 36.6 C 92 H 17 111/59 L 94 Room Air 06/05/23 04:10 36.6 C 96 H 20 129/56 L 95 Room Air
[2023-06-05] MEDS ORDERED: SODIUM CHLORIDE 0.9% 500 ML IV ONE (15:33)
[2023-06-05] MEDS ORDERED: SODIUM CHLORIDE 0.9% 1,000 ML IV SCH (15:45)
[2023-06-05] MEDS: ALBUMIN 25% 25 GM/100 ML VIAL IV SCH (19:29)
[2023-06-05] MEDS: LATANOPROST 0.005% OP SOLN 2.5 ML BTL OPB SCH (19:34)
[2023-06-06] MEDS: ALBUMIN 25% 25 GM/100 ML VIAL IV SCH ×2 (03:44→13:53)
[2023-06-06] MEDS: ACETAMINOPHEN 325 MG TAB PO PRN (04:25)
[2023-06-06] MEDS: PANTOprazole 40 MG TAB PO SCH (05:53)
[2023-06-06 06:36] LABS: BUN Creatinine Ratio 34.4 (10-20); Calcium 9.2 mg/dl (8.6-10.3); Chol HDL Ratio 5.3 (0-5); Creatinine Clr Calc Pharmacy 34.5 ml/min; Est GFR (African American) 48.7 ml/min; Potassium 4.4 mmol/L (3.5-5.1)
[2023-06-06 06:50] LABS: Hematocrit (blood only) 21.1 % (37.0-47.0); Hemoglobin 6.9 g/dl (12.0-16.0); Mean Corpuscular Hgb Conc 32.7 g/dL (32.0-36.0); Mean Corpuscular Volume 91.7 fL (80.0-100.0); Mean Platelet Volume 9.1 fL (9.4-12.4); Platelet Count 125 K/uL (130-400); RDW Coefficient of Variation 22.7 % (11.5-14.5); RDW Standard Deviation 75.4 fL (36.4-46.3); White Blood Count 6.66 K/ul (4.8-10.8)
[2023-06-06 06:51] LABS: Thyroid Stimulating Hormone 2.103 uIu/ml (0.300-4.500)
[2023-06-06 06:55] LABS: Anisocytosis Present; Basophils # (auto) 0.02 K/uL (0.00-0.20); Basophils % (auto) 0.3 %; Eosinophils # (auto) 0.13 K/uL (0.00-0.50); Immature Granulocytes # (auto) 0.05 K/uL (0.01-0.20); Immature Granulocytes % (auto) 0.8 %; Lymphocytes # (auto) 0.98 K/uL (1.20-3.40); Lymphocytes % (auto) 14.7 %; Monocytes # (auto) 1.62 K/uL (0.11-0.59); Monocytes % (auto) 24.3 %; Neutrophils # (auto) 3.86 K/uL (1.40-6.50); Neutrophils % (auto) 57.9 %; Polychromasia 1+
[2023-06-06] MEDS ORDERED: SODIUM CHLORIDE 0.9% 250 ML IV PRN ×2 (07:16→17:49)
[2023-06-06] MEDS: POT PHOSPHATE MONOBASIC W/ SOD TAB PO SCH ×2 (08:27→21:03)
[2023-06-06] MEDS: MAGNESIUM OXIDE 400 MG TAB PO SCH ×2 (08:27→21:04)
[2023-06-06] MEDS: CALCIUM 600MG + VIT D 400 IU TAB PO SCH ×2 (08:28→21:04)
[2023-06-06] MEDS: MONTELUKAST SODIUM 10 MG TABLET PO SCH (08:28)
[2023-06-06] MEDS: POTASSIUM CHLORIDE CRTAB 20 MEQ TABCR PO SCH (08:28)
[2023-06-06] MEDS: LACTULOSE SYRUP 30 GM/45 ML UDP PO SCH ×2 (08:29→16:03)
[2023-06-06] MEDS: FLUTICASONE FUROATE 200MCG 14 PUFFS/INHALER INH SCH (08:29)
[2023-06-06] MEDS: LACTOBACILLUS ACIDOPHILUS 1 GM PACK PO SCH (08:29)
[2023-06-06] MEDS: SODIUM CHLORIDE 0.65% NA SOLN 45 ML (OCEAN) SCH ×2 (08:30→21:03)
[2023-06-06] MEDS: FERROUS SULFATE 325 MG/7.4 ML UDP PO SCH (08:30)
[2023-06-06] MEDS: HEPARIN SOD 5,000 UNIT/0.5 ML VIAL SQ SCH (08:30)
[2023-06-06] MEDS: ARTIFICIAL TEARS OP SCH (08:30)
[2023-06-06] MEDS: SPIRONOLACTONE 25 MG TAB PO SCH (08:31)
--- NOTE | 2023-06-06 10:56 | Nephrology Progress Note ---
Date of Service June 06, 2023 Assessment & Plan (1) Anasarca: Plan: Patient with over 20 pound weight gain in the past 1 month prior to admission. standing wt 05/21/23 95.9 kg, to 92.3 on 05/22. on 06/04 67.2, 06/05 64, June 06 63.7 kg. Concern that she has worsening hyponatremia w/ changing to po diuretics from IV and will reevaluate Na studies and trends. -had been on torsemide 100 mg twice daily, Aldactone 100 mg daily and metolazone 5 mg daily as well as daily k supplements >> see below for changes -continue daily STANDING weight and strict I/O -continue FR 1.2L daily -daily bmp while here -see 06/05 note for d/c recommendations from nephro (on hold now w/ GIB) I/o not accurate today d/t purewick issues. she had since 05/21 diuresed 30% of her total body weight through 06/04; >>>orthostatic June 05 (no other positional VS on file) and w/ concern for GI bleed now -Torsemide held Aldactone given today. Continues on albumin for 3 total doses. Also had some saline resuscitation. -getting pRBC today; NPO at MN and full liquids until then liberalized FR to 2L while on liquid diet >>recheck orthostatics are no longer positive >> will give lasix 30 mg IV x 1 this evening and reassess in AM Care coordinated w/ Dr Wright (2) DOLORES (acute kidney injury): Plan: Patient with acute kidney injury with admission creatinine of 1.3 from a baseline of 0.7. Creatinine is plateau'd 1.2-1.3. She has hypokalemia. This is due to cardiorenal syndrome. 700 mg proteinuria on eval; albumin 2.2 on admission likely diluted. Will continue diuretics and monitor renal function with daily BMP. Will avoid nephrotoxins such as contrast. Given her aggressive diuretic requirement creatinine 1.1-1.3 may be her new baseline (3) Acute hyponatremia: Plan: plateau'd hypervolemic hyponatremia in the setting of decompensated cirrhosis with ascites and massive edema. recheck of sodium labs 06/05 notable for unexpectedly high serum osms relative to her sNa > will r/o other pseudohyponatremia causes (though these are not likely) -lipid panel and TFTs in am -continue aggressive diuresis and fluid / sodium restriction -modify diuretics as above Admission and Anticipated Discharge Date Admission Date: May 15, 2023 Subjective Hemoglobin dropped and receiving 1 unit packed red cells today. pt a bit more confused today; no further HR to 160s ; waiting to collect FOBT when I saw her though it was collected later in AM and is =; not sob; pizarro out at pt request/has yennick Review of Systems 2 Review of Systems: All systems reviewed & are unremarkable except as noted in Subjective Physical Exam 2 Constitutional: well developed, + obese, + frail appearing and cooperative; no acute distress Eyes: EOM intact bilaterally ENMT: Ears: no external ear abnormality Nose: no external nose abnormality Mouth: + dry oral mucous membranes Neck: no nuchal rigidity Respiratory: normal respiratory effort and able to speak in complete sentences; no labored breathing and not tachypneic Auscultation: + diminished lung sounds and + crackles Cardiovascular: Rate/Rhythm: regular rhythm and + tachycardic Extremities: + edema (pedal 2-3+; 1+ BLE pretibial; 3-4+ dependent) Gastrointestinal (Abdomen): Inspection/Auscultation: normal bowel sounds P ercussion/Palpation: abdomen soft; abdomen nontender and no ascites Musculoskeletal: Extremities: strength 5/5 throughout Skin: no rashes, warm and dry Neurologic: + tremors today BLUE, fluent speech, a f ew missed details Psychiatric: Orientation: alert and oriented x 3 Results & Data Vital Signs (Past 12 Hours) Vital Signs Temp Pulse Pulse Resp BP BP Pulse Ox 06/06/23 10:30 36.7 C 95 H 18 123/67 96 06/06/23 10:15 36.7 C 90 17 107/71 97 06/06/23 09:59 36.7 C 92 H 17 103/57 L 97 06/06/23 09:35 36.7 C 92 H 18 114/65 97 06/06/23 07:56 06/06/23 02:56 36.4 C L 95 H 18 105/59 L 95 06/05/23 22:58 36.7 C 94 H 18 113/63 95 O2 Del Method 06/06/23 10:30 06/06/23 10:15 06/06/23 09:59 06/06/23 09:35 06/06/23 07:56 Room Air 06/06/23 02:56 Room Air 06/05/23 22:58 Room Air Laboratory Results 06/06/23 05:17 06/06/23 05:17
--- NOTE | 2023-06-06 13:32 | Hospitalist Progress Note ---
Date of Service June 06, 2023 Assessment & Plan (1) Acute diastolic (congestive) heart failure: Plan Patient is a 73 yr female with PMH of liver cirrhosis, COPD, hypertensive heart disease with heart failure, T2DM, paroxysmal atrial tachycardia, HTN, HLD, GERD, primary open-angle glaucoma presented to the ED 05/15 with complaint of increasing swelling of the legs and abdomen associated with exertional shortness of breath for the last 3 to 4 weeks [employer]. Admitting weight was 101kg on admission. Patient was previously on torsemide 100 mg daily since last few months. 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 H/O decompensation w/ ascites, HE Patient presented with shortness of breath and weight gain for 3 to 4 weeks. Chest x-ray on admission personally reviewed pulmonary vascular congestion without overt pulmonary edema. No significant change in marked elevation of the right hemidiaphragm. --02/28/2023 echo: EF 65 to 70%, grade 1 diastolic dysfunction, mild concentric LVH. --05/16/23 ECHO: Ejection fraction greater than 70%, grade 1 diastolic dysfunction, no pericardial effusion. --S/P paracentesis on 05/31/23: 2 L removed Diuresed with IV Lasix during the hospitalization; patient is -46 L. Nephrology on board; managing diuretics. Recommended to stop metolazone and decrease Aldactone. Patient was found to have orthostatic hypotension on June 05, 2022. Diuretics currently on hold. Currently receiving albumin as per nephrology. Previous hospitalist discussed with GI on May 31, 2022; Given high meld, not a candidate for TIPS. Currently no urgent need for liver transplant evaluation as per GI. Needs follow-up with liver transplant team as outpatient Strict input and output monitoring. Titrate lactulose dose as needed to target 2-3 good bowel movements per day. Dose of lactulose increased Continue fluid restriction Chronic normocytic anemia No acute bleeding issues Fe 51, ferritin 52.7, likely combo of iron deficiency/chronic disease -Started Iron supplementation Hemoglobin is 6.9 today. 1 unit of packed RBC ordered. Will follow-up on Hemoccult test. Hyponatremia Likely hypervolemic hyponatremia along with diuretics Sodium level down trended from 130s to 126. Improvement to 128 today. Serum ; calculated serum osmolarity 274 Diuretics are currently on hold. Daily BMP Acute renal failure: Baseline Cr around 0.75 Creatinine around 1.1-1 .2 Avoid nephrotoxic agents as able Nephrology on board; appreciate recommendation Other chronic medical conditions: Continue with/resume home meds as and when able Hypertension, blood pressure remains a stable. Asthma, no acute symptoms, continue home inhalers CODE STATUS: DNR/DNI DVT Px: Heparin SQ Dispopatient continues to be hospitalized due to various issues including anemia requiring transfusion, hyponatremia and DOLORES. Discussed with over the phone on June 06, 2022. Answered questions/queries. Possible discharge in next few days to rehab depending on the clinical status. Time spent evaluating patient, direct bedside care, chart review, placing orders, interpretation of diagnostic studies, discussion with consultants, patient, and family members, as well as other required patient management activities is 50 minutes Please note the above document was generated using voice recognition software. It may contain grammatical, syntax or spelling errors. Any formal questions or concerns about the content, text or information contained within the body of this dictation should be directly addressed to the provider for clarification Admission and Anticipated Discharge Date Admission Date: May 15, 2023 Subjective Patient seen and examined at bedside. She continues to report nausea and had 1 episode of vomiting. Reports no blood in the vomitus.. Denies fever, chills, chest pain, shortness of breath, abdominal pain or urinary symptoms. No significant overnight events Review of Systems Review of Systems: All systems reviewed & are unremarkable except as noted in Subjective Physical Exam Physical Exam: Constitutional: Awake, alert oriented x 3; not in distress. Respiratory: Bilateral vesicular breath sound Cardiovascular: RRR, no murmur, no edema Vessels: no JVD or carotid bruit Chest: normal inspection of chest Abdomen: Slightly distended. Nontender Musculoskeletal: no cyanosis or clubbing, extremities motor strength 5/5. Minimal pitting edema. Skin: no rashes, warm and dry normal turgor Neurologic: Grossly intact Psychiatric: A+Ox3, euthymic affect Results & Data Results & Data Vital Signs (Past 12 Hours) Vital Signs Temp Pulse Pulse Resp BP BP Pulse Ox 06/06/23 13:00 37 C 96 H 18 132/76 97 06/06/23 12:00 36.8 C 94 H 18 111/62 97 06/06/23 11:00 37 C 93 H 18 115/57 L 97 06/06/23 10:30 36.7 C 95 H 18 123/67 96 06/06/23 10:15 36.7 C 90 17 107/71 97 06/06/23 09:59 36.7 C 92 H 17 103/57 L 97 06/06/23 09:35 36.7 C 92 H 18 114/65 97 06/06/23 07:56 06/06/23 02:56 36.4 C L 95 H 18 105/59 L 95 O2 Del Method 06/06/23 13:00 06/06/23 12:00 06/06/23 11:00 06/06/23 10:30 06/06/23 10:15 06/06/23 09:59 06/06/23 09:35 06/06/23 07:56 Room Air 06/06/23 02:56 Room Air
[2023-06-06] MEDS ORDERED: FUROSEMIDE INJ 20 MG/2 ML VIAL IV ONE (17:26)
[2023-06-06] MEDS ORDERED: STAT IV/IM STA (17:49)
[2023-06-06] MEDS ORDERED: OCTREOTIDE ACETATE 50 MCG in SYRINGE 9.5 ML IV ONE (18:30)
[2023-06-06 18:43] LABS: Basophils # (auto) 0.02 K/uL (0.00-0.20); Basophils % (auto) 0.3 %; Eosinophils # (auto) 0.08 K/uL (0.00-0.50); Eosinophils % (auto) 1.2 %; Hemoglobin 8.6 g/dl (12.0-16.0); Immature Granulocytes # (auto) 0.04 K/uL (0.01-0.20); Immature Granulocytes % (auto) 0.6 %; Lymphocytes # (auto) 0.59 K/uL (1.20-3.40); Lymphocytes % (auto) 8.7 %; Mean Corpuscular Hemoglobin 30.1 pg (25.0-34.0); Mean Corpuscular Hgb Conc 33.1 g/dL (32.0-36.0); Mean Corpuscular Volume 90.9 fL (80.0-100.0); Mean Platelet Volume 9.1 fL (9.4-12.4); Monocytes # (auto) 1.49 K/uL (0.11-0.59); Monocytes % (auto) 21.9 %; Neutrophils # (auto) 4.58 K/uL (1.40-6.50); Neutrophils % (auto) 67.3 %; Platelet Count 126 K/uL (130-400); RDW Coefficient of Variation 22.3 % (11.5-14.5); RDW Standard Deviation 72.6 fL (36.4-46.3); Red Blood Count 2.86 M/uL (4.20-5.40)
[2023-06-06] MEDS ORDERED: cefTRIAXone SODIUM 2,000 MG in DEXTROSE 5 % MINI-B 50 ML IV SCH (19:00)
[2023-06-06 19:04] LABS: Anisocytosis Present; Polychromasia 1+
[2023-06-06] MEDS: OCTREOTIDE ACETATE 500 MCG in 0.9 % SODIUM CHLORIDE 100 ML IV SCH (19:55)
[2023-06-06] MEDS: PANTOprazole 40 MG in SYRINGE 0 ML IV SCH (21:03)
[2023-06-06] MEDS: LATANOPROST 0.005% OP SOLN 2.5 ML BTL OPB SCH (21:03)
[2023-06-07 01:22] LABS: Basophils # (auto) 0.02 K/uL (0.00-0.20); Basophils % (auto) 0.4 %; Eosinophils # (auto) 0.09 K/uL (0.00-0.50); Eosinophils % (auto) 1.6 %; Hematocrit (blood only) 30.8 % (37.0-47.0); Hemoglobin 10.4 g/dl (12.0-16.0); Immature Granulocytes # (auto) 0.04 K/uL (0.01-0.20); Immature Granulocytes % (auto) 0.7 %; Lymphocytes # (auto) 0.66 K/uL (1.20-3.40); Lymphocytes % (auto) 11.7 %; Mean Corpuscular Hemoglobin 30.1 pg (25.0-34.0); Mean Corpuscular Hgb Conc 33.8 g/dL (32.0-36.0); Mean Corpuscular Volume 89.3 fL (80.0-100.0); Mean Platelet Volume 9.1 fL (9.4-12.4); Monocytes # (auto) 1.11 K/uL (0.11-0.59); Monocytes % (auto) 19.7 %; Neutrophils # (auto) 3.71 K/uL (1.40-6.50); Neutrophils % (auto) 65.9 %; Platelet Count 116 K/uL (130-400); RDW Coefficient of Variation 20.5 % (11.5-14.5); RDW Standard Deviation 66.3 fL (36.4-46.3); Red Blood Count 3.45 M/uL (4.20-5.40); White Blood Count 5.63 K/ul (4.8-10.8)
[2023-06-07 02:04] LABS: Anisocytosis Present; Polychromasia 1+
[2023-06-07] MEDS: OCTREOTIDE ACETATE 500 MCG in 0.9 % SODIUM CHLORIDE 100 ML IV SCH (04:38)
[2023-06-07 07:39] LABS: Basophils # (auto) 0.04 K/uL (0.00-0.20); Basophils % (auto) 0.7 %; Eosinophils % (auto) 1.8 %; Hematocrit (blood only) 30.3 % (37.0-47.0); Hemoglobin 10.2 g/dl (12.0-16.0); Immature Granulocytes # (auto) 0.03 K/uL (0.01-0.20); Immature Granulocytes % (auto) 0.5 %; Lymphocytes # (auto) 0.73 K/uL (1.20-3.40); Lymphocytes % (auto) 13.1 %; Mean Corpuscular Hemoglobin 30.2 pg (25.0-34.0); Mean Corpuscular Hgb Conc 33.7 g/dL (32.0-36.0); Mean Corpuscular Volume 89.6 fL (80.0-100.0); Mean Platelet Volume 8.8 fL (9.4-12.4); Monocytes # (auto) 1.27 K/uL (0.11-0.59); Monocytes % (auto) 22.8 %; Neutrophils # (auto) 3.41 K/uL (1.40-6.50); Neutrophils % (auto) 61.1 %; Platelet Count 110 K/uL (130-400); RDW Coefficient of Variation 20.9 % (11.5-14.5); RDW Standard Deviation 67.1 fL (36.4-46.3); Red Blood Count 3.38 M/uL (4.20-5.40); White Blood Count 5.58 K/ul (4.8-10.8)
[2023-06-07 07:50] LABS: Albumin Level 4.1 gm/dl (3.4-5.0); Bilirubin,Total 3.1 mg/dl (0.2-1.0); Potassium 4.5 mmol/L (3.5-5.1)
[2023-06-07 07:56] LABS: Albumin Globulin Ratio 1.5 (0.9-2); BUN Creatinine Ratio 38.9 (10-20); Creatinine Clr Calc Pharmacy 38.7 ml/min; Est GFR (African American) 56.6 ml/min; Est GFR (Non-African American) 48.9 ml/min; Globulin 2.8 gm/dl (2.5-4.0); Total Protein 6.9 gm/dl (6.0-8.3)
[2023-06-07 08:06] LABS: INR 1.2 (0.9-1.1)
[2023-06-07 08:10] LABS: Anisocytosis Present
--- NOTE | 2023-06-07 08:40 | Nephrology Progress Note ---
Date of Service June 07, 2023 Assessment & Plan (1) Anasarca: Plan: Patient with over 20 pound weight gain in the past 1 month prior to admission. standing wt 05/21/23 95.9 kg, to 92.3 on 05/22. on 06/04 67.2, 06/05 64, June 06 63.7 kg. Concern that she has worsening hyponatremia w/ changing to po diuretics from IV and will reevaluate Na studies and trends. -had been on torsemide 100 mg twice daily, Aldactone 100 mg daily and metolazone 5 mg daily as well as daily k supplements >> see below for changes -continue daily STANDING weight and strict I/O -continue FR 1.2L daily -daily bmp while here -see 06/05 note for d/c recommendations from nephro (on hold now w/ GIB) I/o not accurate not accurate w/o pizarro. she had since 05/21 diuresed 30% of her total body weight through 06/04; >>>orthostatic June 05 (and not on 06/06) and w/ concern for GI bleed now -Torsemide held since yesterday; Aldactone held today. on 06/06 had albumin for 3 total doses. Also had some saline resuscitation 06/05. had lasix 30 mg IV last evening -NPO currently awaiting GI eval >>recheck orthostatics daily as able; await GI dispo (2) Acute hyponatremia: Plan: plateau'd hypervolemic hyponatremia in the setting of decompensated cirrhosis with ascites and massive edema. concern that w/ po diuretics her sodium worsens; will monitor for this -diuretics currently on hold (3) DOLORES (acute kidney injury): Plan: Patient with acute kidney injury with admission creatinine of 1.3 from a baseline of 0.7. Creatinine is plateau'd 1.2-1.3. She has hypokalemia. This is due to cardiorenal syndrome. 700 mg proteinuria on eval; albumin 2.2 on admission likely diluted. Will continue diuretics and monitor renal function with daily BMP. Will avoid nephrotoxins such as contrast. Given her aggressive diuretic requirement creatinine 1.1-1.3 may be her new baseline Admission and Anticipated Discharge Date Admission Date: May 15, 2023 Subjective maroon stools last evening; pt denies further ones today; on octreotide gtt; NPO still; no c/o sob, n/v. hasn't been out of bed given circs Review of Systems 2 Review of Systems: All systems reviewed & are unremarkable except as noted in Subjective Physical Exam 2 Constitutional: well developed, + obese, + frail appearing and cooperative; no acute distress Eyes: EOM intact bilaterally ENMT: Ears: no external ear abnormality Nose: no external nose abnormality Mouth: + dry oral mucous membranes Neck: no nuchal rigidity Respiratory: normal respiratory effort and able to speak in complete sentences; no labored breathing and not tachypneic Auscultation: + diminished lung sounds and + crackles Cardiovascular: Rate/Rhythm: regular rhythm and + tachycardic Extremities: + edema (pedal 2+; 1+ BLE pretibial; 3+ dependent) Gastrointestinal (Abdomen): Inspection/Auscultation: normal bowel sounds P ercussion/Palpation: abdomen soft; abdomen nontender and no ascites Musculoskeletal: Extremities: strength 5/5 throughout Skin: no rashes, warm and dry Psychiatric: Orientation: alert and oriented x 3 Results & Data Vital Signs (Past 12 Hours) Vital Signs Temp Pulse Pulse Resp BP BP Pulse Ox 06/07/23 08:00 36.5 C 97 H 18 124/62 97 06/07/23 03:00 36.9 C 90 16 120/46 L 94 06/06/23 23:45 36.8 C 90 16 109/62 96 06/06/23 23:07 06/06/23 23:04 36.9 C 95 H 20 119/63 96 06/06/23 22:31 36.8 C 90 16 118/70 95 06/06/23 22:30 36.7 C 91 H 15 106/58 L 93 06/06/23 22:24 89 06/06/23 22:01 36.8 C 93 H 16 110/58 L 06/06/23 21:30 36.8 C 89 16 116/61 95 06/06/23 21:15 36.7 C 91 H 16 102/70 95 06/06/23 21:01 37 C 90 16 116/67 95 06/06/23 20:46 36.7 C 91 H 16 129/67 96 O2 Del Method 06/07/23 08:00 Room Air 06/07/23 03:00 Room Air 06/06/23 23:45 06/06/23 23:07 Room Air 06/06/23 23:04 Room Air 06/06/23 22:31 06/06/23 22:30 06/06/23 22:24 06/06/23 22:01 06/06/23 21:30 06/06/23 21:15 06/06/23 21:01 06/06/23 20:46 Laboratory Results 06/07/23 06:57 06/07/23 06:57
--- NOTE | 2023-06-07 09:13 | Gastroenterology Progress Note ---
Date of Service June 07, 2023 Assessment & Plan (1) Anemia: (2) Occult blood positive stool: (3) Liver cirrhosis secondary to ADRIAN: (4) History of esophageal varices: Plan Her anemia is more likely caused by bone marrow suppression 2nd to cirrhosis and fluid overload/IV fluids vs. the small EV that were seen on EGD in August 2022. Her Hb yesterday was 6.9 and today after 2 units of RBCs were given, it is 10. She has not had any gross GI bleeding. We will arranged OP EGD on Saturday if still an IP. If has been discharged then EGD can be completed as an OP. Diuretics per nephrology. OP Hepatology f/u. GI will sign off. Admission and Anticipated Discharge Date Admission Date: May 15, 2023 Supervising Physician Co-Signing Physician Notes I performed a history and physical examination of the patient today, including specifically on physical exam - soft abdomen. I have discussed the patient's management with the advanced practitioner. Please refer to the nurse practitioner's note for the documented findings and plan of care. Drop in H/H without gross bleeding. Hx of small esophageal varices. Recommend: PPI. If patient stays in the hospital till Saturday then we can arrange EGD, otherwise we will schedule it as OP in 2 weeks if she is discharged over the weekend. Subjective 73, female, DOLORES, heart failure. Admitted 05/15 for anasarca, hyponatremia. Neph managing diuretics. Cirrhosis w grade I EV, PHG on most recent EGD in August 2022. Internal hemorrhoids and 2 large polyps (6mm, 15mm) on most recent colonoscopy July 2021. Asked to see the pt as Hb was 6.9 early yesterday, no gross GI bleeding (passing 1-2 soft brown BMs/day, Occult stool was (+). Received 2 units of RBCs and Hb this morning 10.2. Hemodynamically stable w HR 97, BP 124/62, Sat at 97% on room air. AAO, comfortble, asking to eat. Review of Systems Review of Systems: ROS: Gen: "feeling much better," Denies weakness, fevers Eyes: No eye redness, or pain, no recent vision changes Resp: No SOB, no cough Cardio: No palpitations/irregular beats, no chest pain GI: No abdominal pain, no nausea/vomiting : Denies pain on urination Skin: No jaundice, itching or new rashes Physical Exam Constitutional: WD/WN, vitals as above Eyes: PERRL, conjunctivae normal, anicteric sclerae ENMT: external ear and nose normal, oropharynx normal Neck: trachea midline, no thyromegaly Respiratory: normal respiratory effort, lungs clear to auscultation Cardiovascular: RRR, no murmurs, trace bilat lower edema (much improved) Gastrointestinal (Abdomen): soft, non tender, non distended, no masses, mild ascites Skin: no rashes, warm and dry Neurologic: PERRL, EOMI, accommodation nl, no face palsy, no dysarthria Psychiatric: A+Ox3, euthymic affect Lymphatic: no cervical or axillary lymphadenopathy Results & Data Vital Signs (Past 12 Hours) Vital Signs Temp Pulse Pulse Resp BP BP Pulse Ox 06/07/23 08:00 36.5 C 97 H 18 124/62 97 06/07/23 03:00 36.9 C 90 16 120/46 L 94 06/06/23 23:45 36.8 C 90 16 109/62 96 06/06/23 23:07 06/06/23 23:04 36.9 C 95 H 20 119/63 96 06/06/23 22:31 36.8 C 90 16 118/70 95 06/06/23 22:30 36.7 C 91 H 15 106/58 L 93 06/06/23 22:24 89 06/06/23 22:01 36.8 C 93 H 16 110/58 L 06/06/23 21:30 36.8 C 89 16 116/61 95 06/06/23 21:15 36.7 C 91 H 16 102/70 95 O2 Del Method 06/07/23 08:00 Room Air 06/07/23 03:00 Room Air 06/06/23 23:45 06/06/23 23:07 Room Air 06/06/23 23:04 Room Air 06/06/23 22:31 06/06/23 22:30 06/06/23 22:24 06/06/23 22:01 06/06/23 21:30 06/06/23 21:15 Laboratory Results WBC 5, Hb 10, Hct 30, Plts 110, PT 13, INR 1.2, Na 128, K 4.5, Cl 93, CO2 25, BUN 44, Cr 1.13, glucose 87.
[2023-06-07] MEDS: ARTIFICIAL TEARS OP SCH (09:55)
[2023-06-07] MEDS: CALCIUM 600MG + VIT D 400 IU TAB PO SCH ×2 (09:56→20:27)
[2023-06-07] MEDS: FERROUS SULFATE 325 MG/7.4 ML UDP PO SCH (09:57)
[2023-06-07] MEDS: LACTOBACILLUS ACIDOPHILUS 1 GM PACK PO SCH (09:57)
[2023-06-07] MEDS: FLUTICASONE FUROATE 200MCG 14 PUFFS/INHALER INH SCH (09:58)
[2023-06-07] MEDS: MONTELUKAST SODIUM 10 MG TABLET PO SCH (09:58)
[2023-06-07] MEDS: MAGNESIUM OXIDE 400 MG TAB PO SCH ×2 (09:58→20:26)
[2023-06-07] MEDS: POT PHOSPHATE MONOBASIC W/ SOD TAB PO SCH ×2 (09:58→20:27)
[2023-06-07] MEDS: PANTOprazole 40 MG in SYRINGE 0 ML IV SCH ×2 (09:59→20:27)
[2023-06-07] MEDS: SODIUM CHLORIDE 0.65% NA SOLN 45 ML (OCEAN) SCH ×2 (10:00→20:28)
[2023-06-07] MEDS: POTASSIUM CHLORIDE CRTAB 20 MEQ TABCR PO SCH (10:00)
--- NOTE | 2023-06-07 13:26 | Hospitalist Progress Note ---
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 Patient was previously on torsemide 100 mg daily since last few months. 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 H/O decompensation w/ ascites, HE Patient presented with shortness of breath and weight gain for 3 to 4 weeks. Chest x-ray on admission personally reviewed pulmonary vascular congestion without overt pulmonary edema. No significant change in marked elevation of the right hemidiaphragm. --02/28/2023 echo: EF 65 to 70%, grade 1 diastolic dysfunction, mild concentric LVH. --05/16/23 ECHO: Ejection fraction greater than 70%, grade 1 diastolic dysfunction, no pericardial effusion. --S/P paracentesis on 05/31/23: 2 L removed Diuresed with IV Lasix during the hospitalization; patient is -46 L. Nephrology on board; managing diuretics. Recommended to stop metolazone and decrease Aldactone. Patient was found to have orthostatic hypotension on June 05, 2022. Diuretics currently on hold. Previous hospitalist discussed with GI on May 31, 2022; Given high meld, not a candidate for TIPS. Currently no urgent need for liver transplant evaluation as per GI. Needs follow-up with liver transplant team as outpatient Strict input and output monitoring. Titrate lactulose dose as needed to target 2-3 good bowel movements per day. Lactulose currently on hold due to diarrhea. Continue fluid restriction Possible upper GI bleed Chronic normocytic anemia History of internal hemorrhoids and polyps Patient hemoglobin dropped to 6.9 on June 06, 2023 Fecal occult positive Fe 51, ferritin 52.7, likely combo of iron deficiency/chronic disease Status post 2 units of packed RBC Hemoglobin improved Discussed with GI; arrange for outpatient EGD in 1 to 2 months as there is no gross bleeding. Discontinue octreotide. Continue Protonix twice daily. Monitor for any signs of bleeding. Hyponatremia Likely hypervolemic hyponatremia along with diuretics Sodium level down trended from 130s to 126. Improvement to 128 today. Serum [id number]; calculated serum osmolarity 274 Diuretics are currently on hold. Daily BMP Acute renal failure: Baseline Cr around 0.75 Creatinine around 1.1-1 .2 Avoid nephrotoxic agents as able Nephrology on board; appreciate recommendation Other chronic medical conditions: Continue with/resume home meds as and when able Hypertension, blood pressure remains a stable. Asthma, no acute symptoms, continue home inhalers CODE STATUS: DNR/DNI DVT Px: Heparin SQ currently on hold. Dispopatient continues to be hospitalized due to various issues including anemia requiring transfusion, hyponatremia and DOLORES. Discussed with over the phone on June 06, 2022. Answered questions/queries. Possible discharge in next few days to rehab depending on the clinical status. Time spent evaluating patient, direct bedside care, chart review, placing orders, interpretation of diagnostic studies, discussion with consultants, patient, and family members, as well as other required patient management activities is 50 minutes Please note the above document was generated using voice recognition software. It may contain grammatical, syntax or spelling errors. Any formal questions or concerns about the content, text or information contained within the body of this dictation should be directly addressed to the provider for clarification Admission and Anticipated Discharge Date Admission Date: May 15, 2023 Subjective Patient seen and examined at bedside. Comfortable; not in distress. Denies fever, chills, chest pain, shortness of breath, abdominal pain or urinary symptoms. No significant overnight events No signs or symptoms of bleeding today. Review of Systems Review of Systems: All systems reviewed & are unremarkable except as noted in Subjective Physical Exam Physical Exam: Constitutional: Awake, alert oriented x 3; not in distress. Respiratory: Bilateral vesicular breath sound Cardiovascular: RRR, no murmur, no edema Vessels: no JVD or carotid bruit Chest: normal inspection of chest Abdomen: Slightly distended. Nontender Musculoskeletal: no cyanosis or clubbing, extremities motor strength 5/5. Minimal pitting edema. Skin: no rashes, warm and dry normal turgor Neurologic: Grossly intact Psychiatric: A+Ox3, euthymic affect Results & Data Results & Data Vital Signs (Past 12 Hours) Vital Signs Temp Pulse Resp BP Pulse Ox O2 Del Method 06/07/23 12:00 36.6 C 98 H 16 131/64 96 Room Air 06/07/23 08:00 36.5 C 97 H 18 124/62 97 Room Air 06/07/23 03:00 36.9 C 90 16 120/46 L 94 Room Air
[2023-06-07] MEDS: LATANOPROST 0.005% OP SOLN 2.5 ML BTL OPB SCH (20:27)
[2023-06-07] MEDS: MICONAZOLE NITRATE POWDER 85 GM EXT PRN (20:28)
[2023-06-08 08:26] LABS: Basophils # (auto) 0.04 K/uL (0.00-0.20); Basophils % (auto) 0.7 %; Eosinophils # (auto) 0.15 K/uL (0.00-0.50); Eosinophils % (auto) 2.6 %; Hematocrit (blood only) 30.9 % (37.0-47.0); Hemoglobin 10.7 g/dl (12.0-16.0); Immature Granulocytes # (auto) 0.04 K/uL (0.01-0.20); Immature Granulocytes % (auto) 0.7 %; Lymphocytes # (auto) 0.75 K/uL (1.20-3.40); Mean Corpuscular Hemoglobin 30.4 pg (25.0-34.0); Mean Corpuscular Hgb Conc 34.6 g/dL (32.0-36.0); Mean Corpuscular Volume 87.8 fL (80.0-100.0); Mean Platelet Volume 8.9 fL (9.4-12.4); Monocytes # (auto) 1.29 K/uL (0.11-0.59); Monocytes % (auto) 22.3 %; Neutrophils # (auto) 3.51 K/uL (1.40-6.50); Neutrophils % (auto) 60.7 %; Platelet Count 106 K/uL (130-400); RDW Coefficient of Variation 21.1 % (11.5-14.5); RDW Standard Deviation 67.2 fL (36.4-46.3); Red Blood Count 3.52 M/uL (4.20-5.40); White Blood Count 5.78 K/ul (4.8-10.8)
[2023-06-08 08:39] LABS: BUN Creatinine Ratio 38.7 (10-20); Calcium 10.2 mg/dl (8.6-10.3); Est GFR (African American) 71.7 ml/min; Est GFR (Non-African American) 61.8 ml/min; Potassium 4.7 mmol/L (3.5-5.1)
[2023-06-08] MEDS: CALCIUM 600MG + VIT D 400 IU TAB PO SCH ×2 (09:13→20:24)
[2023-06-08] MEDS: FLUTICASONE FUROATE 200MCG 14 PUFFS/INHALER INH SCH (09:13)
[2023-06-08] MEDS: FERROUS SULFATE 325 MG/7.4 ML UDP PO SCH (09:13)
[2023-06-08] MEDS: LACTOBACILLUS ACIDOPHILUS 1 GM PACK PO SCH (09:13)
[2023-06-08] MEDS: MAGNESIUM OXIDE 400 MG TAB PO SCH ×2 (09:14→20:25)
[2023-06-08] MEDS: MONTELUKAST SODIUM 10 MG TABLET PO SCH (09:14)
[2023-06-08] MEDS: POT PHOSPHATE MONOBASIC W/ SOD TAB PO SCH ×2 (09:14→20:25)
[2023-06-08] MEDS: PANTOprazole 40 MG in SYRINGE 0 ML IV SCH ×2 (09:15→20:25)
[2023-06-08] MEDS: POTASSIUM CHLORIDE CRTAB 20 MEQ TABCR PO SCH (09:15)
[2023-06-08] MEDS: SODIUM CHLORIDE 0.65% NA SOLN 45 ML (OCEAN) SCH ×2 (09:15→20:26)
[2023-06-08] MEDS: ARTIFICIAL TEARS OP SCH (09:16)
[2023-06-08 09:41] LABS: Anisocytosis Present
--- NOTE | 2023-06-08 11:17 | Hospitalist Progress Note ---
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 Patient was previously on torsemide 100 mg daily since last few months. 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 H/O decompensation w/ ascites, HE Patient presented with shortness of breath and weight gain for 3 to 4 weeks. Chest x-ray on admission personally reviewed pulmonary vascular congestion without overt pulmonary edema. No significant change in marked elevation of the right hemidiaphragm. --02/28/2023 echo: EF 65 to 70%, grade 1 diastolic dysfunction, mild concentric LVH. --05/16/23 ECHO: Ejection fraction greater than 70%, grade 1 diastolic dysfunction, no pericardial effusion. --S/P paracentesis on 05/31/23: 2 L removed Diuresed with IV Lasix during the hospitalization; patient is -46 L. Nephrology on board; managing diuretics. Recommended to stop metolazone and decrease Aldactone. Patient was found to have orthostatic hypotension on June 05, 2022. Diuretics currently on hold. Previous hospitalist discussed with GI on May 31, 2022; Given high meld, not a candidate for TIPS. Currently no urgent need for liver transplant evaluation as per GI. Needs follow-up with liver transplant team as outpatient Strict input and output monitoring. Titrate lactulose dose as needed to target 2-3 good bowel movements per day. Lactulose currently on hold due to diarrhea. Continue fluid restriction Possible upper GI bleed Chronic normocytic anemia History of internal hemorrhoids and polyps Patient hemoglobin dropped to 6.9 on June 06, 2023 Fecal occult positive Fe 51, ferritin 52.7, likely combo of iron deficiency/chronic disease Status post 2 units of packed RBC Hemoglobin improved Discussed with GI; plan for EGD on Saturday. Continue Protonix twice daily. Monitor for any signs of bleeding. Hyponatremia Likely hypervolemic hyponatremia along with diuretics Sodium level down trended from 130s to 126 during the hospitalization. Sodium slightly improved with holding of metolazone. Serum [id number]; calculated serum osmolarity 274 Diuretics are currently on hold. Daily BMP Acute renal failure: Baseline Cr around 0.75 Creatinine up trended to 1.3 during the hospitalization. Currently stable. Avoid nephrotoxic agents as able Nephrology on board; appreciate recommendation Other chronic medical conditions: Continue with/resume home meds as and when able Hypertension, blood pressure remains a stable. Asthma, no acute symptoms, continue home inhalers CODE STATUS: DNR/DNI DVT Px: Heparin SQ currently on hold. Dispopatient continues to be hospitalized due to various issues including anemia requiring transfusion, hyponatremia and DOLORES. Discussed with over the phone on June 06, 2022. Answered questions/queries. Possible discharge in next few days to rehab depending on the clinical status. EGD on Saturday. Time spent evaluating patient, direct bedside care, chart review, placing orders, interpretation of diagnostic studies, discussion with consultants, patient, and family members, as well as other required patient management activities is 50 minutes Please note the above document was generated using voice recognition software. It may contain grammatical, syntax or spelling errors. Any formal questions or concerns about the content, text or information contained within the body of this dictation should be directly addressed to the provider for clarification Admission and Anticipated Discharge Date Admission Date: May 15, 2023 Subjective Patient seen and examined at bedside. Comfortable; not in distress. Denies fever, chills, chest pain, shortness of breath, abdominal pain or urinary symptoms. No significant overnight events. No episode of bleeding overnight. Review of Systems Review of Systems: All systems reviewed & are unremarkable except as noted in Subjective Physical Exam Physical Exam: Constitutional: Awake, alert oriented x 3; not in distress. Respiratory: Bilateral vesicular breath sound Cardiovascular: RRR, no murmur, no edema Vessels: no JVD or carotid bruit Chest: normal inspection of chest Abdomen: Slightly distended. Nontender Musculoskeletal: no cyanosis or clubbing, extremities motor strength 5/5. Minimal pitting edema. Skin: no rashes, warm and dry normal turgor Neurologic: Grossly intact Psychiatric: A+Ox3, euthymic affect Results & Data Results & Data Vital Signs (Past 12 Hours) Vital Signs Temp Pulse Pulse Resp BP Pulse Ox O2 Del Method 06/08/23 10:19 Room Air 06/08/23 08:05 36.9 C 76 18 131/74 94 Room Air 06/08/23 07:23 88 06/08/23 03:00 36.9 C 94 H 16 125/65 90 Room Air
[2023-06-08] MEDS: LACTULOSE SYRUP 30 GM/45 ML UDP PO SCH ×2 (14:39→20:27)
--- NOTE | 2023-06-08 16:29 | Nephrology Progress Note ---
Date of Service June 08, 2023 Assessment & Plan (1) Anasarca: Plan: Patient with over 20 pound weight gain in the past 1 month prior to admission. standing wt 05/21/23 95.9 kg, to 92.3 on 05/22. on 06/04 67.2, 06/05 64, June 06 63.7 kg. Concern that she has worsening hyponatremia w/ changing to po diuretics from IV and will reevaluate Na studies and trends. -had been on torsemide 100 mg twice daily, Aldactone 100 mg daily and metolazone 5 mg daily as well as daily k supplements >> see below for changes -continue daily STANDING weight and strict I/O -continue FR 1.2L daily -daily bmp while here -see 06/05 note for d/c recommendations from nephro (on hold now w/ GIB) I/o not accurate not accurate w/o pizarro. she had since 05/21 diuresed 30% of her total body weight through 06/04; >>>orthostatic June 05 (and not on 06/06; not on 06/08) and no further report of GI bleed -Torsemide and aldactone on hold now for a few days. on 06/06 had albumin for 3 total doses. Also had some saline resuscitation 06/05. had lasix 30 mg IV same timeframe x 1. -tighten to 1.5L FR -TRIAL OF lower dose furosemide /aldactone today >>recheck orthostatics daily as able; await GI dispo Care coordinated w/ dr belcher (2) Acute hyponatremia: Plan: plateau'd hypervolemic hyponatremia in the setting of decompensated cirrhosis with ascites and massive edema. concern that w/ po diuretics her sodium worsens; will monitor for this -diuretics currently on hold but recommend resumint lower po dose provided not actively bleeding or orthostatic (3) DOLORES (acute kidney injury): Plan: Patient with acute kidney injury with admission creatinine of 1.3 from a baseline of 0.7. Creatinine is plateau'd 1.2-1.3. She has hypokalemia. This is due to cardiorenal syndrome. 700 mg proteinuria on eval; albumin 2.2 on admission likely diluted. Will continue diuretics and monitor renal function with daily BMP. Will avoid nephrotoxins such as contrast. Given her aggressive diuretic requirement creatinine 1.1-1.3 may be her new baseline Admission and Anticipated Discharge Date Admission Date: May 15, 2023 Subjective seen on rounds this am. no further GI bleeding. still tired; no sob; For EGD 06/10 if bleed recurs; labs were pending Review of Systems 2 Review of Systems: All systems reviewed & are unremarkable except as noted in Subjective Physical Exam 2 Constitutional: well developed, + obese, + frail appearing and cooperative; no acute distress Eyes: EOM intact bilaterally ENMT: Ears: no external ear abnormality Nose: no external nose abnormality Mouth: + dry oral mucous membranes Neck: no nuchal rigidity Respiratory: normal respiratory effort and able to speak in complete sentences; no labored breathing and not tachypneic Auscultation: + diminished lung sounds Cardiovascular: Rate/Rhythm: regular rhythm and + tachycardic Extremities: + edema (pedal 2+; trace BLE pretibial; 2+ dependent) Gastrointestinal (Abdomen): Inspection/Auscultation: normal bowel sounds P ercussion/Palpation: abdomen soft; abdomen nontender and no ascites Musculoskeletal: Extremities: strength 5/5 throughout Skin: no rashes, warm and dry Psychiatric: Orientation: alert and oriented x 3 Results & Data Vital Signs (Past 12 Hours) Vital Signs Temp Pulse Pulse Resp BP Pulse Ox O2 Del Method 06/08/23 15:04 84 06/08/23 11:31 36.7 C 88 18 117/70 96 Room Air 06/08/23 10:19 Room Air 06/08/23 08:05 36.9 C 76 18 131/74 94 Room Air 06/08/23 07:23 88 Laboratory Results 06/08/23 07:50 06/08/23 07:50
[2023-06-08] MEDS: SPIRONOLACTONE 12.5 MG TAB PO SCH (18:27)
[2023-06-08] MEDS: TORSEMIDE 10 MG TAB PO SCH (18:28)
[2023-06-08] MEDS: TORSEMIDE 100 MG TAB PO SCH (18:28)
[2023-06-08] MEDS: LATANOPROST 0.005% OP SOLN 2.5 ML BTL OPB SCH (20:25)
[2023-06-08] MEDS: MICONAZOLE NITRATE POWDER 85 GM EXT PRN (20:29)
[2023-06-09 06:26] LABS: Basophils # (auto) 0.04 K/uL (0.00-0.20); Basophils % (auto) 0.7 %; Eosinophils # (auto) 0.17 K/uL (0.00-0.50); Eosinophils % (auto) 2.9 %; Hematocrit (blood only) 31.6 % (37.0-47.0); Hemoglobin 10.7 g/dl (12.0-16.0); Immature Granulocytes # (auto) 0.05 K/uL (0.01-0.20); Immature Granulocytes % (auto) 0.9 %; Lymphocytes # (auto) 0.86 K/uL (1.20-3.40); Lymphocytes % (auto) 14.9 %; Mean Corpuscular Hemoglobin 30.7 pg (25.0-34.0); Mean Corpuscular Hgb Conc 33.9 g/dL (32.0-36.0); Mean Corpuscular Volume 90.8 fL (80.0-100.0); Mean Platelet Volume 8.9 fL (9.4-12.4); Monocytes # (auto) 1.27 K/uL (0.11-0.59); Neutrophils # (auto) 3.39 K/uL (1.40-6.50); Neutrophils % (auto) 58.6 %; Platelet Count 99 K/uL (130-400); RDW Coefficient of Variation 20.4 % (11.5-14.5); RDW Standard Deviation 67.8 fL (36.4-46.3); Red Blood Count 3.48 M/uL (4.20-5.40); White Blood Count 5.78 K/ul (4.8-10.8)
[2023-06-09 06:46] LABS: BUN Creatinine Ratio 41.7 (10-20); Calcium 9.8 mg/dl (8.6-10.3); Creatinine Clr Calc Pharmacy 45.6 ml/min; Est GFR (Non-African American) 59.5 ml/min; Potassium 4.4 mmol/L (3.5-5.1)
[2023-06-09 06:52] LABS: Polychromasia 1+
[2023-06-09] MEDS: ARTIFICIAL TEARS OP SCH (08:57)
[2023-06-09] MEDS: CALCIUM 600MG + VIT D 400 IU TAB PO SCH ×2 (08:58→20:13)
[2023-06-09] MEDS: LACTOBACILLUS ACIDOPHILUS 1 GM PACK PO SCH (08:58)
[2023-06-09] MEDS: FLUTICASONE FUROATE 200MCG 14 PUFFS/INHALER INH SCH (08:58)
[2023-06-09] MEDS: FERROUS SULFATE 325 MG/7.4 ML UDP PO SCH (08:58)
[2023-06-09] MEDS: POT PHOSPHATE MONOBASIC W/ SOD TAB PO SCH ×2 (08:59→20:14)
[2023-06-09] MEDS: MAGNESIUM OXIDE 400 MG TAB PO SCH ×2 (08:59→20:13)
[2023-06-09] MEDS: PANTOprazole 40 MG in SYRINGE 0 ML IV SCH ×2 (08:59→20:14)
[2023-06-09] MEDS: MONTELUKAST SODIUM 10 MG TABLET PO SCH (08:59)
[2023-06-09] MEDS: TORSEMIDE 10 MG TAB PO SCH (09:00)
[2023-06-09] MEDS: SPIRONOLACTONE 12.5 MG TAB PO SCH (09:00)
[2023-06-09] MEDS: SODIUM CHLORIDE 0.65% NA SOLN 45 ML (OCEAN) SCH ×2 (09:00→20:14)
[2023-06-09] MEDS: POTASSIUM CHLORIDE CRTAB 20 MEQ TABCR PO SCH (09:00)
[2023-06-09] MEDS: TORSEMIDE 100 MG TAB PO SCH (09:01)
[2023-06-09] MEDS: LACTULOSE SYRUP 30 GM/45 ML UDP PO SCH ×3 (09:27→20:14)
--- NOTE | 2023-06-09 10:38 | Gastroenterology Progress Note ---
Date of Service June 09, 2023 Assessment & Plan Admission and Anticipated Discharge Date Admission Date: May 15, 2023 Subjective Seen and examined today, feels fine. H/H stable. Plan for EGD tomorrow. Results & Data Vital Signs (Past 12 Hours) Vital Signs Temp Pulse Resp BP Pulse Ox O2 Del Method 06/09/23 07:48 36.8 C 92 H 18 130/69 94 Room Air 06/09/23 02:51 36.7 C 90 18 112/70 95 Room Air 06/09/23 00:18 36.7 C 88 18 156/77 H 94 Room Air
--- NOTE | 2023-06-09 11:37 | Hospitalist Progress Note ---
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 Admitting weight was 101kg on admission. Patient was previously on torsemide 100 mg daily since last few months. 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 H/O decompensation w/ ascites, HE Patient presented with shortness of breath and weight gain for 3 to 4 weeks. Chest x-ray on admission personally reviewed pulmonary vascular congestion without overt pulmonary edema. No significant change in marked elevation of the right hemidiaphragm. --02/28/2023 echo: EF 65 to 70%, grade 1 diastolic dysfunction, mild concentric LVH. --05/16/23 ECHO: Ejection fraction greater than 70%, grade 1 diastolic dysfunction, no pericardial effusion. --S/P paracentesis on 05/31/23: 2 L removed Diuresed with IV Lasix during the hospitalization; patient is -46 L. Nephrology on board; managing diuretics. Recommended to stop metolazone and decrease Aldactone. Patient was found to have orthostatic hypotension on June 05, 2022. Diuretics resumed at low-dose. Previous hospitalist discussed with GI on May 31, 2022; Given high meld, not a candidate for TIPS. Currently no urgent need for liver transplant evaluation as per GI. Needs follow-up with liver transplant team as outpatient Strict input and output monitoring. Titrate lactulose dose as needed to target 2-3 good bowel movements per day. Continue fluid restriction Possible upper GI bleed Chronic normocytic anemia History of internal hemorrhoids and colonic polyps Patient hemoglobin dropped to 6.9 on June 06, 2023 Fecal occult positive Fe 51, ferritin 52.7, likely combo of iron deficiency/chronic disease Status post 2 units of packed RBC Hemoglobin improved Discussed with GI; plan for EGD on Saturday. Continue Protonix twice daily. Monitor for any signs of bleeding. Heparin currently on hold Hyponatremia Likely hypervolemic hyponatremia along with diuretics Sodium level down trended from 130s to 126 during the hospitalization. Sodium improved with holding off on metolazone. Serum [id number]; calculated serum osmolarity 274 Daily BMP Acute renal failure: Baseline Cr around 0.75 Creatinine up trended to 1.3 during the hospitalization. Currently stable. Avoid nephrotoxic agents as able Nephrology on board; appreciate recommendation Other chronic medical conditions: Continue with/resume home meds as and when able Hypertension, blood pressure remains a stable. Asthma, no acute symptoms, continue home inhalers CODE STATUS: DNR/DNI DVT Px: Heparin SQ currently on hold. Dispopatient continues to be hospitalized due to various issues including anemia requiring transfusion, hyponatremia and DOLORES. Discussed with over the phone on June 06, 2022. Answered questions/queries. Possible discharge in next few days to rehab depending on the clinical status. EGD tomorrow Time spent evaluating patient, direct bedside care, chart review, placing orders, interpretation of diagnostic studies, discussion with consultants, patient, and family members, as well as other required patient management activities is 50 minutes Please note the above document was generated using voice recognition software. It may contain grammatical, syntax or spelling errors. Any formal questions or concerns about the content, text or information contained within the body of this dictation should be directly addressed to the provider for clarification Admission and Anticipated Discharge Date Admission Date: May 15, 2023 Subjective Patient seen and examined at bedside. She reports that she is feeling better. She reports that her strength is getting better as well. Review of Systems Review of Systems: All systems reviewed & are unremarkable except as noted in Subjective Physical Exam Physical Exam: Constitutional: Awake, alert oriented x 3; not in distress. Respiratory: Bilateral vesicular breath sound Cardiovascular: RRR, no murmur, no edema Vessels: no JVD or carotid bruit Chest: normal inspection of chest Abdomen: Slightly distended. Nontender Musculoskeletal: no cyanosis or clubbing, extremities motor strength 5/5. Minimal pitting edema. Skin: no rashes, warm and dry normal turgor Neurologic: Grossly intact Psychiatric: A+Ox3, euthymic affect Results & Data Results & Data Vital Signs (Past 12 Hours) Vital Signs Temp Pulse Pulse Resp BP Pulse Ox O2 Del Method 06/09/23 10:45 Room Air 06/09/23 07:59 85 06/09/23 07:48 36.8 C 92 H 18 130/69 94 Room Air 06/09/23 02:51 36.7 C 90 18 112/70 95 Room Air 06/09/23 00:18 36.7 C 88 18 156/77 H 94 Room Air
[2023-06-09] MEDS: LATANOPROST 0.005% OP SOLN 2.5 ML BTL OPB SCH (20:14)
[2023-06-09] MEDS: MICONAZOLE NITRATE POWDER 85 GM EXT PRN (20:15)
[2023-06-10 06:34] LABS: Basophils # (auto) 0.03 K/uL (0.00-0.20); Basophils % (auto) 0.6 %; Eosinophils # (auto) 0.16 K/uL (0.00-0.50); Hematocrit (blood only) 28.2 % (37.0-47.0); Hemoglobin 9.7 g/dl (12.0-16.0); Immature Granulocytes # (auto) 0.05 K/uL (0.01-0.20); Immature Granulocytes % (auto) 0.9 %; Lymphocytes # (auto) 0.78 K/uL (1.20-3.40); Lymphocytes % (auto) 14.5 %; Mean Corpuscular Hemoglobin 30.5 pg (25.0-34.0); Mean Corpuscular Hgb Conc 34.4 g/dL (32.0-36.0); Mean Corpuscular Volume 88.7 fL (80.0-100.0); Mean Platelet Volume 9.2 fL (9.4-12.4); Monocytes # (auto) 1.15 K/uL (0.11-0.59); Monocytes % (auto) 21.4 %; Neutrophils % (auto) 59.6 %; Platelet Count 101 K/uL (130-400); RDW Coefficient of Variation 20.7 % (11.5-14.5); RDW Standard Deviation 66.2 fL (36.4-46.3); Red Blood Count 3.18 M/uL (4.20-5.40); White Blood Count 5.37 K/ul (4.8-10.8)
[2023-06-10 06:56] LABS: Anisocytosis Present
[2023-06-10 07:02] LABS: BUN Creatinine Ratio 46.2 (10-20); Calcium 9.3 mg/dl (8.6-10.3); Creatinine Clr Calc Pharmacy 48.2 ml/min; Est GFR (African American) 73.6 ml/min; Est GFR (Non-African American) 63.5 ml/min; Potassium 3.5 mmol/L (3.5-5.1)
--- NOTE | 2023-06-10 08:08 | Anesthesiology Consultation ---
Date of Service June 10, 2023 Assessment & Plan (1) Encounter for pre-operative examination: Chart Review Chart Review: Acceptable Risk for Surgery, Patient NOT seen in Pre Admission Testing and e learning manager initiated Consults Requested none Proposed Anesthesia Anesthesia Type: MAC History Surgery Operation Date: 06/10/23 17:00 Proposed Procedures p Esophagogastroduodenoscopy Dr Francisco Singh, DO Height/Weight Height: 5 ft 1 in Weight: 62.9 kg Allergies Allergy/AdvReac Type Severity Reaction Status Date / Time albuterol Allergy Severe HIVES, Verified 05/15/23 17:57 DIFFICULTY WALKING, SHAKINESS, STUTTERING azithromycin Allergy Severe SHORT OF Verified 05/15/23 17:57 BREATH, PALPITATIONS tramadol Allergy Severe SEE COMMENT Verified 05/15/23 17:57 ibuprofen Allergy Intermediate Hives Verified 05/15/23 17:57 cephalexin AdvReac Severe "HEART Verified 05/15/23 17:57 PALPATIONS" Opioids - Morphine Analogues AdvReac Severe "opiates Verified 06/07/23 13:42 cause decreased respirations" Opioids-Meperidine and AdvReac Severe "opiates Verified 06/07/23 13:42 Related cause decreased respirations" Opioids-Methadone and Related AdvReac Severe "opiates Verified 06/07/23 13:42 cause decreased respirations" morphine AdvReac Unknown PT STATES Verified 05/15/23 17:57 "BUILT UP A TOLERANCE TO MED, DOESN'T WORK". Medications Home Medications Medication Instructions Recorded Confirmed Last Taken calcium carbonate 600 mg-vitamin 1 cap PO BID 02/11/18 05/15/23 05/15/23 08:00 D3 10 mcg (400 unit) capsule latanoprost 0.005 % eye drops 1 drp OPB HS 04/11/18 05/15/23 05/14/23 montelukast 10 mg tablet 10 mg PO QAM 04/11/18 05/15/23 05/15/23 pantoprazole 40 mg tablet,delayed 40 mg PO DAILYBB 04/11/18 05/15/23 05/15/23 release levalbuterol tartrate 45 1 puff inhalation Q4H PRN Wheezing 11/11/18 05/15/23 Unknown mcg/actuation aerosol inhaler milk thistle seed extract 175 mg 175 mg PO QAM 01/21/19 05/15/2323 tablet acetaminophen 650 mg 650 mg PO Q8H PRN Pain 07/14/20 05/15/23 Unknown tablet,extended release (Tylenol 8 Hour) blood sugar diagnostic (OneTouch #50 ea 07/15/20 Unknown Verio test strips) lancets 30 gauge (OneTouch Delica #100 ea 07/15/20 Unknown Lancets) cyclosporine 0.05 % eye drops in a 1 drp ophthalmic (eye) QAM 12/22/20 05/15/23 05/15/23 dropperette (Restasis) cinnamon bark 500 mg capsule 1,000 mg PO TID 01/20/22 05/15/23 05/15/23 08:00 (Cinnamon) fluticasone propionate 110 2 puff inhalation AMPM 01/20/22 05/15/23 05/15/23 mcg/actuation HFA aerosol inhaler garlic 100 mg tablet 1,000 mg PO BID 01/20/22 05/15/23 05/15/23 08:00 guaifenesin 100 mg/5 mL oral 200 mg (10 mL) PO Q6H PRN cough 01/22/22 05/15/23 Unknown liquid (Cough Syrup) #473 mL sodium di- and 1 tab PO BID #60 tabs 03/26/23 05/15/23 05/15/23 08:00 monophosphate-potassium phos monobasic 250 mg tablet (Phospha Neutral) Lactobacillus rhamnosus GG 10 1 cap PO DAILY 05/15/23 05/15/23 05/15/23 billion cell capsule (Culturelle) docusate sodium 100 mg capsule 100 mg PO TID PRN Constipation 05/15/23 05/15/23 Unknown iron,carbonyl 65 mg-vitamin C 125 1 tab PO HS 05/15/23 05/15/23 05/14/23 mg tablet,delayed release (Vitron-C) lactulose 10 gram/15 mL (15 mL) 45 g PO DAILY PRN constipation 05/15/23 05/15/23 Unknown oral solution levalbuterol HCl 1.25 mg/3 mL 1.25 mg inhalation Q4H PRN Wheezing 05/15/23 05/15/23 Unknown solution for nebulization potassium chloride 20 mEq 40 meq PO QAM 05/15/23 05/15/23 05/15/23 tablet,extended release psyllium husk 6 gram oral powder 6 g PO TID PRN Constipation 05/15/23 05/15/23 Unknown packet torsemide 100 mg tablet 100 mg PO QAM 05/15/23 05/15/23 05/15/23 Active Medications Generic Name Dose Route Start Last Admin Trade Name Freq PRN Reason Stop Dose Admin Acetaminophen 650 mg 05/15/23 21:22 06/06/23 04:25 Acetaminophen 325 Mg Tab PO 06/14/23 21:21 650 mg Q8H PRN Administration Pain Artificial Tears 1 drops 05/16/23 09:00 06/09/23 08:57 Artificial Tears OP 06/15/23 08:59 1 drops QAM WILLOW Administration Calcium/Vitamin D 1 tab 05/15/23 21:30 06/09/23 20:13 Calcium 600mg + Vit D 400 Iu Tab PO 06/14/23 21:29 1 tab BID WILLOW Administration Ferrous Sulfate 325 mg 05/27/23 09:00 06/09/23 08:58 Ferrous Sulfate 325 Mg/7.4 Ml Udp PO 06/26/23 08:59 325 mg QAM WILLOW Administration Fluticasone Furoate 1 puffs 05/16/23 09:00 06/09/23 08:58 Fluticasone Furoate 200mcg 14 Puffs/Inhaler INH 06/15/23 08:59 1 puffs TODAY@0900 WILLOW Administration Heparin Sodium (Porcine) 5,000 units 05/18/23 21:00 06/06/23 08:30 Heparin Sod 5,000 Unit/0.5 Ml Vial SQ 06/17/23 20:59 Not Given Q12 WILLOW Pantoprazole Sodium 40 mg/ 10 mls @ 5 mls/min 06/06/23 21:00 06/09/23 20:14 Syringe IV 07/06/23 20:59 5 mls/min BID WILLOW Administration Lactobacillus Acidophilus 1 gm 05/16/23 09:00 06/09/23 08:58 Lactobacillus Acidophilus 1 Gm Pack PO 06/15/23 08:59 1 gm DAILY WILLOW Administration Lactulose 30 gm 06/06/23 14:00 06/09/23 20:14 Lactulose Syrup 30 Gm/45 Ml Udp PO 07/06/23 13:59 Not Given TID WILLOW Latanoprost 1 drops 05/15/23 21:10 06/09/23 20:14 Latanoprost 0.005% Op Soln 2.5 Ml Btl OPB 06/14/23 21:09 1 drops HS WILLOW Administration Levalbuterol HCl 1.25 mg 05/15/23 21:10 05/20/23 22:14 Levalbuterol 1.25 Mg/3 Ml Neb INH 06/14/23 21:09 1.25 mg Q4H PRN Administration Wheezing Levalbuterol HCl 1 puffs 05/15/23 21:10 05/19/23 13:44 Levalbuterol Tartrate 15 Gm Hfa.Aer.Ad INH 06/14/23 21:09 1 puffs Q4H PRN Administration Wheezing Magnesium Oxide 400 mg 05/24/23 09:00 06/09/23 20:13 Magnesium Oxide 400 Mg Tab PO 06/23/23 08:59 400 mg BID WILLOW Administration Miconazole Nitrate 1 appln 05/17/23 07:47 06/09/23 20:15 Miconazole Nitrate Powder 85 Gm EXT 06/16/23 07:46 1 appln PRN PRN Administration Affected Skin Folds Montelukast Sodium 10 mg 05/16/23 09:00 06/09/23 08:59 Montelukast Sodium 10 Mg Tablet PO 06/15/23 08:59 10 mg QAM WILLOW Administration Ondansetron HCl 4 mg 05/17/23 12:36 06/05/23 10:06 Ondansetron Inj 2 Mg/Ml 2 Ml Vial IV 06/16/23 12:35 4 mg Q6H PRN Administration Nausea And Vomiting Potassium Chloride 20 meq 06/05/23 09:00 06/09/23 09:00 Potassium Chloride Crtab 20 Meq Tabcr PO 07/05/23 08:59 20 meq QAM WILLOW Administration Potassium Phosphate 1 tab 05/15/23 21:30 06/09/23 20:14 Pot Phosphate Monobasic W/ Sod Tab PO 06/14/23 21:29 1 tab BID WILLOW Administration Sodium Chloride 1 sprays 05/29/23 10:15 06/09/23 20:14 Sodium Chloride 0.65% Na Soln 45 Ml ([place]) NA 06/28/23 10:14 1 sprays BID WILLOW Administration Spironolactone 12.5 mg 06/08/23 16:45 06/09/23 09:00 Spironolactone 12.5 Mg Tab PO 07/08/23 16:44 12.5 mg DAILY WILLOW Administration Torsemide 50 mg 06/08/23 16:45 06/09/23 09:01 Torsemide 100 Mg Tab PO 07/08/23 16:44 50 mg QAM WILLOW Administration Torsemide 10 mg 06/08/23 16:45 06/09/23 09:00 Torsemide 10 Mg Tab PO 07/08/23 16:44 10 mg QAM WILLOW Administration NPO Date Last Intake of Fluids: 06/09/23 Time Last Intake of Fluids: 23:30 Last Intake of Fluids Comment: Blue popsicle Past Medical History Medical History (Updated 06/10/23 @ 08:11 by Shiv Cowart MD) Encounter for pre-operative examination Paroxysmal atrial tachycardia Abnormal chest x-ray Bronchitis Cirrhosis Incarcerated hernia of abdominal cavity Osteoarthritis Fibromyalgia Cirrhosis of liver not due to alcohol Thyroid goiter just monitoring for now Glaucoma bilt Migraine Sinus arrhythmia Chronic obstructive pulmonary disease Esophageal varices hx of banding Diverticulitis Malignant neoplasm of left breast, stage 1, estrogen receptor positive (09/26/17) "Status post bilateral breast reduction in 1998 Status post abnormal left breast mammogram Status post ultrasound core needle biopsy September 26, 2017 Infiltrating carcinoma, grade 2 Estrogen receptor positive, progesterone receptor positive, 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 Status post needle localization lumpectomy and sentinel lymph node biopsy October 16, 2017 Stage pT1c pN0 M0 Status post completion of radiation therapy January 01, 2018. She received 5130 cGy utilizing hypo-fractionation." On 11/19/17 11:17 Blossom Brandt wrote "Status post bilateral breast reduction in 1998 Status post abnormal left breast mammogram Status post ultrasound core needle biopsy September 26, 2017 Infiltrating carcinoma, grade 2 Estrogen receptor positive, progesterone receptor positive, 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 Status post needle localization lumpectomy and sentinel lymph node biopsy October 16, 2017 Stage pT1c pN0 M0 Status post completion of radiation therapy January 01, 2018. She received 5130 centigrade utilizing hypo-fractionation. Rectal vaginal fistula Asthma HTN (hypertension) CAD (coronary artery disease) Past Family History Family History Sister Family history of diabetes mellitus Grandfather (Paternal) Family history of diabetes mellitus Family hx of colon cancer Grandfather (Maternal) Family history of diabetes mellitus Family/Other Family history of diabetes mellitus 2 cousins Other No family history of adverse response to anesthesia Past Surgical History Surgical History Status post left foot surgery planter fascitis Status post trigger finger release right thumb History of surgical removal of ganglion cyst right wrist History of repair of rectocele History of incisional hernia repair x8 History of ileostomy 1998 History of closure of ileostomy 1998---1 month after created History of bilateral salpingo-oophorectomy (BSO) History of colonoscopy History of appendectomy History of esophagogastroduodenoscopy (EGD) History of needle biopsy left breast---malignant History of lumpectomy of left breast with lymph node removal History of tonsillectomy and adenoidectomy Status post correction of deviated nasal septum History of ear surgery right ear "doctor broke my ear drum to drain the fluid" History of bilateral cataract extraction History of total right knee replacement x2 H/O arthroscopy of right knee History of cholecystectomy History of colostomy reversal 1997--8 weeks after colectomy History of partial colectomy 1997--diverticuli pocket ruptured @ [facility] H/O bilateral breast reduction surgery H/O: hysterectomy H/O tooth extraction all teeth removed Past Anesthesia History No Hx of Anesthesia Complications and No Family Hx of Anesthesia Complications History of PONV No Hx of PONV and No Hx of Motion Sickness Social History Smoking Status: Never smoker Do You Dip or Chew Tobacco: No Hx Alcohol Use: No Hx Substance Use: No substance use type: does not use Physical Exam Vital Signs Last Vital Signs Temp 36.5 C 06/10/23 07:47 Pulse 71 06/10/23 07:47 Resp 18 06/10/23 07:47 BP 119/71 06/10/23 07:47 Pulse Ox 97 06/10/23 07:47 O2 Del Method Room Air 06/10/23 07:47 O2 Flow Rate 0 05/15/23 16:25 Constitutional no acute distress ENMT Mouth: no chipped teeth and no loose teeth Thyromental Distance: > or= 3.5 Finger Breadths Mallampati Class: II Neck normal visual inspection and trachea midline; neck extension not limited Respiratory normal respiratory effort; no respiratory distress Auscultation: lungs clear to auscultation bilaterally; no crackles, no rhonchi and no wheezes Cardiovascular Rate/Rhythm: regular rate and regular rhythm Heart Sounds: no gallop, no murmur and no cardiac rub Musculoskeletal Head/Neck/Chest: full ROM of neck Neurologic moves all extremities and awake Psychiatric Orientation: alert and oriented x 3 Testing Laboratory Results 06/10/23 05:46 06/10/23 05:46 PT 13.0 Seconds (9.0-12.0) H 06/07/23 06:57 INR 1.2 (0.9-1.1) H 06/07/23 06:57 APTT 24 Seconds (21-31) 05/15/23 16:40 Urine Color Dark Yellow 05/15/23 20:48 Urine Appearance Clear (Clear) 05/15/23 20:48 Urine pH 5.5 (4.5-7.5) 05/15/23 20:48 Ur Specific [place] 1.013 (1.000-1.030) 05/15/23 20:48 Urine Protein Negative (Negative) 05/15/23 20:48 Urine Glucose (UA) Negative (Negative) 05/15/23 20:48 Urine Ketones Negative (Negative) 05/15/23 20:48 Urine Nitrite Negative (Negative) 05/15/23 20:48 Ur Leukocyte Esterase Negative (Negative) 05/15/23 20:48 Blood Type O Positive 06/06/23 07:36 Antibody Screen NEGATIVE 06/06/23 07:36 05/31/23 12:24 Gram Stain - Final Peritoneal Fluid Aerobic and Anaerobic Culture - Final No growth Electrocardiogram Date: 05/15/23 Test Reason : Blood Pressure : / mmHG Vent. Rate : 105 BPM Atrial Rate : 100 BPM P-R Int : 000 ms QRS Dur : 072 ms QT Int : 342 ms P-R-T Axes : 000 012 035 degrees QTc Int : 452 ms Sinus tachycardia Low voltage QRS Abnormal ECG Confirmed by Shiv Olivarez ([id number]) on 05/16/2023 11:05:29 AM Chest X-Ray Date: 05/15/23 XR chest 1V portable CLINICAL HISTORY: Dyspnea. COMPARISON STUDY: Chest CT December 22, 2020. Chest radiograph March 22, 2023. FINDINGS: Marked elevation of the right hemidiaphragm is again noted. Apparent increased since prior exam is likely technical, related to kyphotic positioning. No pneumothorax or pleural effusion is present. There is pulmonary vascular congestion without overt pulmonary edema. There is no consolidation to suggest pneumonia. IMPRESSION: 1. Pulmonary vascular congestion without overt pulmonary edema. 2. No significant change in marked elevation of the right hemidiaphragm. Echocardiogram Date: 05/16/23 EF: >70% LV Function: normal RWMA: + none Other Findings: + diastolic dysfunction (grade 1)
--- NOTE | 2023-06-10 08:22 | History & Physical Bridge Note ---
Date of Service June 10, 2023 History & Physical Bridge Note I have examined the patient, reviewed the History & Physical and in the interval since the performance of the History & Physical I have noted the following changes of clinical significance: no changes noted
[2023-06-10] MEDS ORDERED: LIDOCAINE 2% 2 ML VIAL/AMP(20MG/ML) INFIL ONE (08:57)
[2023-06-10] MEDS ORDERED: PROPOFOL IV EMULSION 10 MG/ML 20 ML VIAL IV ONE (08:57)
--- NOTE | 2023-06-10 09:02 | Communication Note ---
Date of Service: June 10, 2023 The patient underwent upper endoscopy this morning, findings were notable for possible Bess esophagitis, portal hypertensive gastropathy but otherwise unremarkable examination. There was no evidence of active bleeding. The heme positive stools are likely related to the patient's history of liver disease and portal gastropathy. The resume follow-up with your outpatient gastroenterology provider as previously scheduled. If esophageal pathology is consistent with Bess would recommend a 10-day course of Diflucan Please call with any additional questions or concerns
--- NOTE | 2023-06-10 09:08 | GI REPORT ---
Patient Name: Juli Knapp Procedure Date: 06/10/2023 8:27 AM Date of : 1950 Admit Type: Inpatient Age: 73 Gender: Female Attending MD: Andres Singh DO, Procedure: Upper GI endoscopy Providers: Andres Singh DO Referring MD: Luis Wright Md Indications: Cirrhosis with suspected esophageal varices Medicines: Monitored Anesthesia Care Complications: No immediate complications. Estimated blood loss: Minimal. Estimated Blood Loss: Estimated blood loss was minimal. Procedure: Pre-Anesthesia Assessment: - Prior to the procedure, a History and Physical was performed, and patient medications, allergies and sensitivities were reviewed. The patient's tolerance of previous anesthesia was reviewed. - The risks and benefits of the procedure and the sedation options and risks were discussed with the patient. All questions were answered and informed consent was obtained. - Patient identification and proposed procedure were verified prior to the procedure by the physician, the nurse and the network liaison. The procedure was verified in the procedure room. - Pre-procedure physical examination revealed no contraindications to sedation. - ASA Grade Assessment: III - A patient with severe systemic disease. - After reviewing the risks and benefits, the patient was deemed in satisfactory condition to undergo the procedure. - The anesthesia plan was to use monitored anesthesia care (MAC). - Immediately prior to administration of medications, the patient was re-assessed for adequacy to receive sedatives. - The heart rate, respiratory rate, oxygen saturations, blood pressure, adequacy of pulmonary ventilation, and response to care were monitored throughout the procedure. - The physical status of the patient was re-assessed after the procedure. After obtaining informed consent, the endoscope was passed under direct vision. Throughout the procedure, the patient's blood pressure, pulse, and oxygen saturations were monitored continuously. The Endoscope was introduced through the mouth, and advanced to the second part of duodenum. The upper GI endoscopy was accomplished without difficulty. The patient tolerated the procedure well. Findings: Localized, white plaques were found in the upper third of the esophagus. Biopsies were taken with a cold forceps for histology. The pathology specimen was placed into Bottle D. Two columns of grade I varices with no bleeding and no stigmata of recent bleeding were found in the lower third of the esophagus, 28 to 32 cm from the incisors. They were 2 mm in largest diameter. No red melyssa signs were present. Scarring from prior treatment was visible. Multiple 4 to 6 mm semi-sessile polyps with no bleeding and no stigmata of recent bleeding were found in the gastric body. Biopsies were taken with a cold forceps for histology. The pathology specimen was placed into Bottle C. Estimated blood loss was minimal. Moderate portal hypertensive gastropathy was found in the entire examined stomach. Biopsies were taken with a cold forceps for histology. The pathology specimen was placed into Bottle B. Estimated blood loss was minimal. The examined duodenum was normal. Biopsies were taken with a cold forceps for histology. The pathology specimen was placed into Bottle A. Estimated blood loss was minimal. Impression: - Esophageal plaques were found, suspicious for candidiasis. Biopsied. - Grade I esophageal varices with no bleeding and no stigmata of recent bleeding. - Multiple gastric polyps. Biopsied. - Portal hypertensive gastropathy. Biopsied. - Normal examined duodenum. Biopsied. Recommendation: - Return patient to [facility] for [facility] care. - Advance diet as tolerated (low sodium diet). - Await pathology results. - If esophageal pathology is consistent with Bess esophagitis would recommend a 10-day course of Diflucan. - Repeat upper endoscopy in 1 year for surveillance. - Return to liver clinic at appointment to be scheduled. Andres Singh D.O. Andres Singh, 06/10/2023 9:07:33 AM This report has been signed electronically. Note Initiated On: 06/10/2023 8:27 AM Number of Addenda: 0 I attest to the content of the Intraoperative Record and orders documented therein, exceptions below {[id number]}
--- NOTE | 2023-06-10 09:43 | Nephrology Progress Note ---
Date of Service June 10, 2023 Assessment & Plan Admission and Anticipated Discharge Date Admission Date: May 15, 2023 Subjective Assessment & Plan (1) Anasarca: Plan: Patient with over 20 pound weight gain in the past 1 month prior to admission. standing wt 05/21/23 95.9 kg, to 92.3 on 05/22. on 06/04 67.2, 06/05 64, June 06 63.7 kg. Concern that she has worsening hyponatremia w/ changing to po diuretics from IV and will reevaluate Na studies and trends. (2) Acute hyponatremia: Plan: plateau'd hypervolemic hyponatremia in the setting of decompensated cirrhosis with ascites and massive edema. (3) DOLORES (acute kidney injury): Plan: Patient with acute kidney injury with admission creatinine of 1.3 from a baseline of 0.7. Creatinine is plateau'd 1.2-1.3. She has hypokalemia. This is due to cardiorenal syndrome. 700 mg proteinuria on eval; albumin 2.2 on admission likely diluted. Will continue diuretics and monitor renal function with daily BMP. Will avoid nephrotoxins such as contrast. Given her aggressive diuretic requirement creatinine 1.1-1.3 may be her new baseline Rec: 1 Continue current Diuretics for today--but I am concerned with very minimal urine she is making with this dose. Will raise the dose to 100 Daily of torsemide and 25 of Aldactone. If she really does not make much urine She will be back with same problem. 2 Daily CBC and renal panel.--hgb seems stable. No active GI bleed now. 3 Check orthostatic BP daily. Subjective Had EGD earlier today--has Bess. No active Bleeding and has Signs of Cirrhosis. urine very very low as measured ? Accuracy. wt is down by almost 30 kilo since admission though !!!! Review of Systems Review of Systems: All systems reviewed & are unremarkable except as noted in Subjective Physical Exam Constitutional: well developed, + obese, + frail appearing and cooperative; no acute distress Eyes: EOM intact bilaterally ENMT: Ears: no external ear abnormality Nose: no external nose abnormality Mouth: + dry oral mucous membranes Neck: no nuchal rigidity Respiratory: normal respiratory effort and able to speak in complete sentences; no labored breathing and not tachypneic Auscultation: + diminished lung sounds Cardiovascular: Rate/Rhythm: regular rhythm and + tachycardic Extremities: + edema --less Gastrointestinal (Abdomen): Inspection/Auscultation: normal bowel sounds Percussion/Palpation: abdomen soft; abdomen nontender and no ascites Musculoskeletal: Extremities: gen weakness Skin: no rashes, warm and dry Psychiatric: Orientation: alert and oriented x 3 Results & Data Vital Signs (Past 12 Hours) Vital Signs Temp Pulse Pulse Pulse Resp BP BP 06/10/23 09:25 71 18 117/53 L 138/70 06/10/23 09:10 72 18 117/53 L 146/57 H 06/10/23 08:53 75 18 117/53 L 115/69 06/10/23 08:22 36.1 C L 80 18 117/53 L 06/10/23 07:47 36.5 C 71 18 119/71 06/10/23 07:26 75 06/10/23 03:21 36.5 C 91 H 18 139/64 06/09/23 23:13 36.9 C 87 18 119/81 06/09/23 21:45 82 Pulse Ox O2 Del Method 06/10/23 09:25 96 Room Air 06/10/23 09:10 96 Room Air 06/10/23 08:53 98 Room Air 06/10/23 08:22 98 Room Air 06/10/23 07:47 97 Room Air 06/10/23 07:26 06/10/23 03:21 97 Room Air 06/09/23 23:13 95 Room Air 06/09/23 21:45
[2023-06-10] MEDS: TORSEMIDE 10 MG TAB PO SCH (09:57)
[2023-06-10] MEDS: TORSEMIDE 100 MG TAB PO SCH (09:57)
[2023-06-10] MEDS: ARTIFICIAL TEARS OP SCH (10:30)
[2023-06-10] MEDS: CALCIUM 600MG + VIT D 400 IU TAB PO SCH ×2 (10:30→20:56)
[2023-06-10] MEDS: LACTOBACILLUS ACIDOPHILUS 1 GM PACK PO SCH (10:31)
[2023-06-10] MEDS: LACTULOSE SYRUP 30 GM/45 ML UDP PO SCH ×3 (10:31→20:56)
[2023-06-10] MEDS: FERROUS SULFATE 325 MG/7.4 ML UDP PO SCH (10:31)
[2023-06-10] MEDS: FLUTICASONE FUROATE 200MCG 14 PUFFS/INHALER INH SCH (10:31)
[2023-06-10] MEDS: PANTOprazole 40 MG TAB PO SCH (10:32)
[2023-06-10] MEDS: SODIUM CHLORIDE 0.65% NA SOLN 45 ML (OCEAN) SCH ×2 (10:32→20:56)
[2023-06-10] MEDS: MONTELUKAST SODIUM 10 MG TABLET PO SCH (10:32)
[2023-06-10] MEDS: POTASSIUM CHLORIDE CRTAB 20 MEQ TABCR PO SCH (10:32)
[2023-06-10] MEDS: MAGNESIUM OXIDE 400 MG TAB PO SCH ×2 (10:32→20:56)
[2023-06-10] MEDS: POT PHOSPHATE MONOBASIC W/ SOD TAB PO SCH ×2 (10:32→20:56)
[2023-06-10] MEDS: SPIRONOLACTONE 12.5 MG TAB PO SCH (10:33)
--- NOTE | 2023-06-10 12:37 | Anesthesiology Progress Note ---
Date of Service June 10, 2023 Anesthesia Post Procedure Vital Signs Vital Signs: Temp Pulse Pulse Pulse Resp BP BP 06/10/23 11:08 36.9 C 81 18 115/57 L 06/10/23 09:25 71 18 117/53 L 138/70 06/10/23 09:10 72 18 117/53 L 146/57 H 06/10/23 08:53 75 18 117/53 L 115/69 06/10/23 08:22 36.1 C L 80 18 117/53 L 06/10/23 07:47 36.5 C 71 18 119/71 06/10/23 07:26 75 06/10/23 03:21 36.5 C 91 H 18 139/64 06/09/23 23:13 36.9 C 87 18 119/81 06/09/23 21:45 82 06/09/23 20:10 36.9 C 88 18 147/79 H 06/09/23 15:11 85 06/09/23 15:11 36.8 C 90 18 128/74 Pulse Ox O2 Del Method 06/10/23 11:08 97 Room Air 06/10/23 09:25 96 Room Air 06/10/23 09:10 96 Room Air 06/10/23 08:53 98 Room Air 06/10/23 08:22 98 Room Air 06/10/23 07:47 97 Room Air 06/10/23 07:26 06/10/23 03:21 97 Room Air 06/09/23 23:13 95 Room Air 06/09/23 21:45 06/09/23 20:10 96 Room Air 06/09/23 15:11 06/09/23 15:11 95 Room Air Pain Intensity Bilateral Leg: Pain Intensity: 0 Transfer of Care Handoff Completed per policy Notes Mental Status: alert / awake / arousable and participated in evaluation Patient Amnestic to Procedure: Yes Nausea / Vomiting: adequately controlled Pain: adequately controlled Airway Patency, RR, SpO2: stable & adequate BP & HR: stable & adequate Hydration State: stable & adequate Anesthetic Complications: no major complications apparent
--- NOTE | 2023-06-10 12:44 | Hospitalist Progress Note ---
Date of Service June 10, 2023 Assessment & Plan (1) Acute diastolic (congestive) heart failure: Plan Patient is a 73 yr female with PMH of liver cirrhosis, COPD, hypertensive heart disease with heart failure, T2DM, paroxysmal atrial tachycardia, HTN, HLD, GERD, primary open-angle glaucoma presented to the ED 05/15 with complaint of increasing swelling of the legs and abdomen associated with exertional shortness of breath for the last 3 to 4 weeks [employer]. Admitting weight was 101kg on admission. Patient was previously on torsemide 100 mg daily since last few months. 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 H/O decompensation w/ ascites, HE Patient presented with shortness of breath and weight gain for 3 to 4 weeks. Chest x-ray on admission personally reviewed pulmonary vascular congestion without overt pulmonary edema. No significant change in marked elevation of the right hemidiaphragm. --02/28/2023 echo: EF 65 to 70%, grade 1 diastolic dysfunction, mild concentric LVH. --05/16/23 ECHO: Ejection fraction greater than 70%, grade 1 diastolic dysfunction, no pericardial effusion. --S/P paracentesis on 05/31/23: 2 L removed Diuresed with IV Lasix during the hospitalization; patient is -46 L. Nephrology on board; managing diuretics. Recommended to stop metolazone and decrease Aldactone. Patient was found to have orthostatic hypotension on June 05, 2022. Diuretics resumed at low-dose with torsemide 100 mg once a day and spironolactone. Previous hospitalist discussed with GI on May 31, 2022; Given high meld, not a candidate for TIPS. Currently no urgent need for liver transplant evaluation as per GI. Needs follow-up with liver transplant team as outpatient Strict input and output monitoring. Titrate lactulose dose as needed to target 2-3 good bowel movements per day. Continue fluid restriction Possible upper GI bleed, rule out Chronic normocytic anemia History of internal hemorrhoids and colonic polyps Patient hemoglobin dropped to 6.9 on June 06, 2023 Fecal occult positive Fe 51, ferritin 52.7, likely combo of iron deficiency/chronic disease Status post 2 units of packed RBC Hemoglobin improved Status post EGD on June 10, 2023; esophageal plaques found suspicious for candidiasis. Ground 1 esophageal varices with no bleeding. Multiple gastric polyp, portal hypertensive gastropathy. Continue Protonix twice daily. Monitor for any signs of bleeding. Resume heparin for DVT prophylaxis Hyponatremia Likely hypervolemic hyponatremia along with diuretics Sodium level down trended from 130s to 126 during the hospitalization. Sodium improved with holding off on metolazone. Serum [id number]; calculated serum osmolarity 274 Daily BMP Acute renal failure: Baseline Cr around 0.75 Creatinine up trended to 1.3 during the hospitalization. Currently stable. Avoid nephrotoxic agents as able Nephrology on board; appreciate recommendation Other chronic medical conditions: Continue with/resume home meds as and when able Hypertension, blood pressure remains a stable. Asthma, no acute symptoms, continue home inhalers CODE STATUS: DNR/DNI DVT Px: Heparin SQ Dispo- patient is stable for transfer to rehab. Discussed with case management. Discharge when bed is available Please note the above document was generated using voice recognition software. It may contain grammatical, syntax or spelling errors. Any formal questions or concerns about the content, text or information contained within the body of this dictation should be directly addressed to the provider for clarification Admission and Anticipated Discharge Date Admission Date: May 15, 2023 Subjective Patient seen and examined at bedside. Comfortable; not in distress. Denies fever, chills, chest pain, shortness of breath, abdominal pain or urinary symptoms. No significant overnight events Walking on the hallways with PT Review of Systems Review of Systems: All systems reviewed & are unremarkable except as noted in Subjective Physical Exam Physical Exam: Constitutional: Awake, alert oriented x 3; not in distress. Respiratory: Bilateral vesicular breath sound Cardiovascular: RRR, no murmur, no edema Vessels: no JVD or carotid bruit Chest: normal inspection of chest Abdomen: Slightly distended. Nontender Musculoskeletal: no cyanosis or clubbing, extremities motor strength 5/5. Minimal pitting edema. Skin: no rashes, warm and dry normal turgor Neurologic: Grossly intact Psychiatric: A+Ox3, euthymic affect Results & Data Results & Data Vital Signs (Past 12 Hours) Vital Signs Temp Pulse Pulse Pulse Resp BP BP 06/10/23 11:08 36.9 C 81 18 115/57 L 06/10/23 09:25 71 18 117/53 L 138/70 06/10/23 09:10 72 18 117/53 L 146/57 H 06/10/23 08:53 75 18 117/53 L 115/69 06/10/23 08:22 36.1 C L 80 18 117/53 L 06/10/23 07:47 36.5 C 71 18 119/71 06/10/23 07:26 75 06/10/23 03:21 36.5 C 91 H 18 139/64 Pulse Ox O2 Del Method 06/10/23 11:08 97 Room Air 06/10/23 09:25 96 Room Air 06/10/23 09:10 96 Room Air 06/10/23 08:53 98 Room Air 06/10/23 08:22 98 Room Air 06/10/23 07:47 97 Room Air 06/10/23 07:26 06/10/23 03:21 97 Room Air
[2023-06-10] MEDS: LATANOPROST 0.005% OP SOLN 2.5 ML BTL OPB SCH (20:56)
[2023-06-10] MEDS: HEPARIN SOD 5,000 UNIT/0.5 ML VIAL SQ SCH (20:56)
[2023-06-11 05:58] LABS: Basophils # (auto) 0.04 K/uL (0.00-0.20); Basophils % (auto) 0.7 %; Eosinophils # (auto) 0.14 K/uL (0.00-0.50); Eosinophils % (auto) 2.5 %; Hematocrit (blood only) 28.2 % (37.0-47.0); Hemoglobin 9.7 g/dl (12.0-16.0); Immature Granulocytes # (auto) 0.05 K/uL (0.01-0.20); Immature Granulocytes % (auto) 0.9 %; Lymphocytes # (auto) 0.88 K/uL (1.20-3.40); Lymphocytes % (auto) 15.6 %; Mean Corpuscular Hemoglobin 30.8 pg (25.0-34.0); Mean Corpuscular Hgb Conc 34.4 g/dL (32.0-36.0); Mean Corpuscular Volume 89.5 fL (80.0-100.0); Mean Platelet Volume 8.5 fL (9.4-12.4); Monocytes # (auto) 1.21 K/uL (0.11-0.59); Monocytes % (auto) 21.5 %; Neutrophils # (auto) 3.31 K/uL (1.40-6.50); Neutrophils % (auto) 58.8 %; Platelet Count 90 K/uL (130-400); RDW Standard Deviation 67.8 fL (36.4-46.3); Red Blood Count 3.15 M/uL (4.20-5.40); White Blood Count 5.63 K/ul (4.8-10.8)
[2023-06-11 06:30] LABS: Calcium 9.6 mg/dl (8.6-10.3); Potassium 4.1 mmol/L (3.5-5.1)
[2023-06-11 06:36] LABS: Anisocytosis Present; Creatinine Clr Calc Pharmacy 47.3 ml/min; Est GFR (African American) 71.7 ml/min; Est GFR (Non-African American) 61.8 ml/min
[2023-06-11] MEDS: ARTIFICIAL TEARS OP SCH (09:38)
[2023-06-11] MEDS: FERROUS SULFATE 325 MG/7.4 ML UDP PO SCH (09:38)
[2023-06-11] MEDS: CALCIUM 600MG + VIT D 400 IU TAB PO SCH ×2 (09:38→21:31)
[2023-06-11] MEDS: FLUTICASONE FUROATE 200MCG 14 PUFFS/INHALER INH SCH (09:38)
[2023-06-11] MEDS: MAGNESIUM OXIDE 400 MG TAB PO SCH ×2 (09:39→21:31)
[2023-06-11] MEDS: LACTULOSE SYRUP 30 GM/45 ML UDP PO SCH ×3 (09:39→21:31)
[2023-06-11] MEDS: LACTOBACILLUS ACIDOPHILUS 1 GM PACK PO SCH (09:39)
[2023-06-11] MEDS: MONTELUKAST SODIUM 10 MG TABLET PO SCH (09:39)
[2023-06-11] MEDS: SODIUM CHLORIDE 0.65% NA SOLN 45 ML (OCEAN) SCH ×2 (09:40→21:32)
[2023-06-11] MEDS: PANTOprazole 40 MG TAB PO SCH (09:40)
[2023-06-11] MEDS: POTASSIUM CHLORIDE CRTAB 20 MEQ TABCR PO SCH (09:40)
[2023-06-11] MEDS: POT PHOSPHATE MONOBASIC W/ SOD TAB PO SCH ×2 (09:40→21:31)
[2023-06-11] MEDS: SPIRONOLACTONE 25 MG TAB PO SCH (09:40)
[2023-06-11] MEDS: TORSEMIDE 100 MG TAB PO SCH (09:41)
[2023-06-11] MEDS: HEPARIN SOD 5,000 UNIT/0.5 ML VIAL SQ SCH ×2 (10:39→21:31)
--- NOTE | 2023-06-11 12:26 | Hospitalist Progress Note ---
Date of Service June 11, 2023 Assessment & Plan (1) Acute diastolic (congestive) heart failure: Plan Patient is a 73 yr female with PMH of liver cirrhosis, COPD, hypertensive heart disease with heart failure, T2DM, paroxysmal atrial tachycardia, HTN, HLD, GERD, primary open-angle glaucoma presented to the ED 05/15 with complaint of increasing swelling of the legs and abdomen associated with exertional shortness of breath for the last 3 to [address] Admitting weight was 101kg on admission. Patient was previously on torsemide 100 mg daily since last few months. 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 H/O decompensation w/ ascites, HE Patient presented with shortness of breath and weight gain for 3 to 4 weeks. Chest x-ray on admission personally reviewed pulmonary vascular congestion without overt pulmonary edema. No significant change in marked elevation of the right hemidiaphragm. --02/28/2023 echo: EF 65 to 70%, grade 1 diastolic dysfunction, mild concentric LVH. --05/16/23 ECHO: Ejection fraction greater than 70%, grade 1 diastolic dysfunction, no pericardial effusion. --S/P paracentesis on 05/31/23: 2 L removed Diuresed with IV Lasix during the hospitalization; patient is -46 L. Nephrology on board; managing diuretics. Recommended to stop metolazone and decrease Aldactone. Patient was found to have orthostatic hypotension on June 05, 2022. Diuretics resumed at low-dose with torsemide 100 mg once a day and spironolactone. Previous hospitalist discussed with GI on May 31, 2022; Given high meld, not a candidate for TIPS. Currently no urgent need for liver transplant evaluation as per GI. Needs follow-up with liver transplant team as outpatient Strict input and output monitoring. Titrate lactulose dose as needed to target 2-3 good bowel movements per day. Continue fluid restriction Possible upper GI bleed, rule out Chronic normocytic anemia History of internal hemorrhoids and colonic polyps Patient hemoglobin dropped to 6.9 on June 06, 2023 Fecal occult positive Fe 51, ferritin 52.7, likely combo of iron deficiency/chronic disease Status post 2 units of packed RBC Hemoglobin improved Status post EGD on June 10, 2023; esophageal plaques found suspicious for candidiasis. Ground 1 esophageal varices with no bleeding. Multiple gastric polyp, portal hypertensive gastropathy. Continue Protonix twice daily. Monitor for any signs of bleeding. Resume heparin for DVT prophylaxis Follow-up on pathology results. Hyponatremia Likely hypervolemic hyponatremia along with diuretics Sodium level down trended from 130s to 126 during the hospitalization. Sodium improved with holding off on metolazone. Serum [id number]; calculated serum osmolarity 274 Daily BMP Acute renal failure: Baseline Cr around 0.75 Creatinine up trended to 1.3 during the hospitalization. Currently stable. Avoid nephrotoxic agents as able Nephrology on board; appreciate recommendation Other chronic medical conditions: Continue with/resume home meds as and when able Hypertension, blood pressure remains a stable. Asthma, no acute symptoms, continue home inhalers CODE STATUS: DNR/DNI DVT Px: Heparin SQ Dispo- patient is stable for transfer to rehab. Discussed with case management. Discharge when bed is available Please note the above document was generated using voice recognition software. It may contain grammatical, syntax or spelling errors. Any formal questions or concerns about the content, text or information contained within the body of this dictation should be directly addressed to the provider for clarification Admission and Anticipated Discharge Date Admission Date: May 15, 2023 Subjective Patient seen and examined at bedside. Comfortable; not in distress. Denies fever, chills, chest pain, shortness of breath, abdominal pain or urinary symptoms. No significant overnight events Review of Systems Review of Systems: All systems reviewed & are unremarkable except as noted in Subjective Physical Exam Physical Exam: Constitutional: Awake, alert oriented x 3; not in distress. Respiratory: Bilateral vesicular breath sound Cardiovascular: RRR, no murmur, no edema Vessels: no JVD or carotid bruit Chest: normal inspection of chest Abdomen: Slightly distended. Nontender Musculoskeletal: no cyanosis or clubbing, extremities motor strength 5/5. Minimal pitting edema. Skin: no rashes, warm and dry normal turgor Neurologic: Grossly intact Psychiatric: A+Ox3, euthymic affect Results & Data Results & Data Vital Signs (Past 12 Hours) Vital Signs Temp Pulse Resp BP BP Pulse Ox O2 Del Method 06/11/23 11:33 36.9 C 81 18 127/65 97 Room Air 06/11/23 08:29 36.8 C 86 18 132/64 97 Room Air 06/11/23 03:00 36.6 C 71 18 122/74 95 Room Air
[2023-06-11] MEDS: LATANOPROST 0.005% OP SOLN 2.5 ML BTL OPB SCH (21:31)
[2023-06-12 06:42] LABS: Basophils # (auto) 0.03 K/uL (0.00-0.20); Basophils % (auto) 0.6 %; Eosinophils # (auto) 0.14 K/uL (0.00-0.50); Eosinophils % (auto) 2.8 %; Hematocrit (blood only) 26.9 % (37.0-47.0); Hemoglobin 9.2 g/dl (12.0-16.0); Immature Granulocytes # (auto) 0.04 K/uL (0.01-0.20); Immature Granulocytes % (auto) 0.8 %; Lymphocytes # (auto) 0.84 K/uL (1.20-3.40); Lymphocytes % (auto) 16.7 %; Mean Corpuscular Hemoglobin 30.8 pg (25.0-34.0); Mean Corpuscular Hgb Conc 34.2 g/dL (32.0-36.0); Mean Platelet Volume 9.1 fL (9.4-12.4); Monocytes # (auto) 1.21 K/uL (0.11-0.59); Monocytes % (auto) 24.1 %; Neutrophils # (auto) 2.77 K/uL (1.40-6.50); Platelet Count 87 K/uL (130-400); RDW Coefficient of Variation 21.4 % (11.5-14.5); RDW Standard Deviation 69.4 fL (36.4-46.3); Red Blood Count 2.99 M/uL (4.20-5.40); White Blood Count 5.03 K/ul (4.8-10.8)
[2023-06-12 07:10] LABS: Calcium 9.3 mg/dl (8.6-10.3)
[2023-06-12 07:16] LABS: BUN Creatinine Ratio 47.2 (10-20); Creatinine Clr Calc Pharmacy 50.2 ml/min; Est GFR (African American) 75.6 ml/min; Est GFR (Non-African American) 65.2 ml/min
[2023-06-12] MEDS: FLUTICASONE FUROATE 200MCG 14 PUFFS/INHALER INH SCH (08:48)
[2023-06-12] MEDS: SODIUM CHLORIDE 0.65% NA SOLN 45 ML (OCEAN) SCH (08:48)
[2023-06-12] MEDS: ARTIFICIAL TEARS OP SCH (08:49)
[2023-06-12] MEDS: PANTOprazole 40 MG TAB PO SCH (08:49)
[2023-06-12] MEDS: SPIRONOLACTONE 25 MG TAB PO SCH (08:49)
[2023-06-12] MEDS: POT PHOSPHATE MONOBASIC W/ SOD TAB PO SCH (08:49)
[2023-06-12] MEDS: LACTOBACILLUS ACIDOPHILUS 1 GM PACK PO SCH (08:49)
[2023-06-12] MEDS: MAGNESIUM OXIDE 400 MG TAB PO SCH (08:49)
[2023-06-12] MEDS: TORSEMIDE 100 MG TAB PO SCH (08:49)
[2023-06-12] MEDS: FERROUS SULFATE 325 MG/7.4 ML UDP PO SCH (08:49)
[2023-06-12] MEDS: POTASSIUM CHLORIDE CRTAB 20 MEQ TABCR PO SCH (08:49)
[2023-06-12] MEDS: CALCIUM 600MG + VIT D 400 IU TAB PO SCH (08:49)
[2023-06-12] MEDS: LACTULOSE SYRUP 30 GM/45 ML UDP PO SCH ×2 (08:50→14:12)
[2023-06-12] MEDS: HEPARIN SOD 5,000 UNIT/0.5 ML VIAL SQ SCH (08:50)
[2023-06-12] MEDS: MONTELUKAST SODIUM 10 MG TABLET PO SCH (10:21)
--- NOTE | 2023-06-12 12:12 | Discharge Summary ---
Date of Service June 12, 2023 Admission HPI Per Admitting Provider She is a 73-year-old female with significant past medical history including cirrhosis of liver, COPD, hypertensive heart disease with heart failure, type 2 diabetes, paroxysmal atrial tachycardia, hypertension, hyperlipidemia, gastroesophageal reflux disease, and primary open-angle glaucoma apparently has been complaining of increasing swelling of the legs abdomen associated with exertional shortness of breath for the last 3 to 4 weeks. She was last seen by her PCP sometime in February and at that time she was having minimal swelling and her weight was 198 pounds and today it is 210 pounds. She has been taking torsemide 100 mg a day since February and is not showing any improvement of the edema. With increasing edema of the extremity and inability to move around she called her PCP and was advised to come to the hospital for further evaluation. Denies any chest pain or palpitation. No abdominal pain, nausea or vomiting. Denies any problem with urine and bowel habit. Urine volume remains to be as le ss. In ER she was noted to be in anasarca, minimal shortness of breath at rest with tachycardia, chest x-ray did not show pulmonary congestion and EKG was in sinus rhythm. She will be given intravenous Lasix and will be admitted to telemetry unit. Admission Exam Per Admitting Provider Physical Exam: Lying in bed with minimal shortness of breath Constitutional: well developed, well nourished, + ill appearing and + obese Eyes: PERRL, conjunctivae normal, anicteric sclerae ENMT: external ear and nose normal, oropharynx normal Neck: trachea midline, no thyromegaly Respiratory: + respiratory distress (Minimal distress at rest) Auscultation: + diminished lung sounds and + crackles (Minimal bibasilar crackles) Cardiovascular: Rate/Rhythm: regular rate, regular rhythm and + tachycardic Heart Sounds: normal S1 and normal S2; no murmur Extremities: + edema (3+ edema bilaterally) Gastrointestinal (Abdomen): Inspection/Auscultation: + abdomen distended, normal bowel sounds and + abdominal edema (Abdominal wall edema) Percussion/Palpation: abdomen soft; abdomen nontender Musculoskeletal: No acute arthritis involving any of the joint Neurologic: Alert, awake and oriented x 3. 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 Discharge Exam GENERAL: Alert and oriented x3. NAD, on RA. HEENT: No pallor, no icterus. Pupils equal, round and reactive to light. Oral mucosa moist. NECK: No JVD, no neck masses. HEART: S1 and S2 heard. Regular rate and rhythm. No murmur, no gallop. RESPIRATORY SYSTEM: Normal AP diameter. No accessory muscle use. No wheezing, bb crackles. ABDOMEN: Soft, bowel sounds present, nontender, + mild distention. CENTRAL NERVOUS SYSTEM: No facial droop. Speech is clear. Obeys simple commands. Moves extremities. EXTREMITIES: 2 + ble edema, no erythema seen. Discharge Data Allergies Allergy/AdvReac Type Severity Reaction Status Date / Time albuterol Allergy Severe HIVES, Verified 06/10/23 08:34 DIFFICULTY WALKING, SHAKINESS, STUTTERING azithromycin Allergy Severe SHORT OF Verified 06/10/23 08:34 BREATH, PALPITATIONS tramadol Allergy Severe SEE COMMENT Verified 06/10/23 08:34 ibuprofen Allergy Intermediate Hives Verified 06/10/23 08:34 cephalexin AdvReac Severe "HEART Verified 06/10/23 08:34 PALPATIONS" Opioids - Morphine Analogues AdvReac Severe "opiates Verified 06/10/23 08:34 cause decreased respirations" Opioids-Meperidine and AdvReac Severe "opiates Verified 06/10/23 08:34 Related cause decreased respirations" Opioids-Methadone and Related AdvReac Severe "opiates Verified 06/10/23 08:34 cause decreased respirations" morphine AdvReac Unknown PT STATES Verified 06/10/23 08:34 "BUILT UP A TOLERANCE TO MED, DOESN'T WORK". Consultations 05/15/23 19:31 Consult Cardiology Routine Consult Nephrology Routine 05/17/23 07:48 Consult Gastroenterology Routine Procedures Performed Operation Date: 06/10/23 17:00 Actual Procedures p EGD Biopsy Cytology - Andres Singh DO Ordered Studies 05/17/23 10:00 US abdomen ltd ascites Routine 05/31/23 10:20 US abdomen ltd ascites Routine 05/31/23 11:27 IR paracentesis abd w/img US Routine Hospital Course (1) Acute diastolic (congestive) heart failure: Plan Per prior attending with addendum: Patient is a 73 yr female with PMH of liver cirrhosis, COPD, hypertensive heart disease with heart failure, T2DM, paroxysmal atrial tachycardia, HTN, HLD, GERD, primary open-angle glaucoma presented to the ED 05/15 with complaint of increasing swelling of the legs and abdomen associated with exertional shortness of breath for the last 3 to 4 weeks [employer]. Admitting weight was 101kg on admission. Patient was previously on torsemide 100 mg daily since last few months. Cirrhosis 2/2 DONIS, decompensated with ascites Acute on chronic heart failure with preserved ejection fraction Anasarca: Likely secondary to above complicated by history of liver cirrhosis. H/O decompensation w/ ascites, HE Patient presented with shortness of breath and weight gain for 3 to 4 weeks. Chest x-ray on admission personally reviewed pulmonary vascular congestion without overt pulmonary edema. No significant change in marked elevation of the right hemidiaphragm. --02/28/2023 echo: EF 65 to 70%, grade 1 diastolic dysfunction, mild concentric LVH. --05/16/23 ECHO: Ejection fraction greater than 70%, grade 1 diastolic dysfunction, no pericardial effusion. --S/P paracentesis on 05/31/23: 2 L removed Diuresed with IV Lasix during the hospitalization; patient is -46 L. Nephrology on board; managing diuretics. Recommended to stop metolazone and decrease Aldactone. Patient was found to have orthostatic hypotension on June 05, 2022. Diuretics resumed at low-dose with torsemide 100 mg once a day and spironolactone. Previous hospitalist discussed with GI on May 31, 2022; Given high meld, not a candidate for TIPS. Currently no urgent need for liver transplant evaluation as per GI. Needs follow-up with liver transplant team as outpatient Strict input and output monitoring. Titrate lactulose dose as needed to target 2-3 good bowel movements per day. Continue fluid restriction Possible upper GI bleed, rule out Chronic normocytic anemia History of internal hemorrhoids and colonic polyps Patient hemoglobin dropped to 6.9 on June 06, 2023 Fecal occult positive Fe 51, ferritin 52.7, likely combo of iron deficiency/chronic disease Status post 2 units of packed RBC Hemoglobin improved Status post EGD on June 10, 2023; esophageal plaques found suspicious for candidiasis. Ground 1 esophageal varices with no bleeding. Multiple gastric polyp, portal hypertensive gastropathy. Continue Protonix twice daily. Monitor for any signs of bleeding. Resume heparin for DVT prophylaxis Follow-up on pathology results. Hyponatremia Likely hypervolemic hyponatremia along with diuretics Sodium level down trended from 130s to 126 during the hospitalization. Sodium improved with holding off on metolazone. Serum [id number]; calculated serum osmolarity 274 Daily BMP Acute renal failure: Baseline Cr around 0.75 Creatinine up trended to 1.3 during the hospitalization. Currently stable. Avoid nephrotoxic agents as able Nephrology on board; appreciate recommendation Other chronic medical conditions: Continue with/resume home meds as and when able Hypertension, blood pressure remains a stable. Asthma, no acute symptoms, continue home inhalers CODE STATUS: DNR/DNI DVT Px: Heparin SQ Dispo- patient is stable for transfer to rehab. Discussed with case management. Discharge when bed is available Please note the above document was generated using voice recognition software. It may contain grammatical, syntax or spelling errors. Any formal questions or concerns about the content, text or information contained within the body of this dictation should be directly addressed to the provider for clarification Addendum 06/12/2023: Patient was seen and examined at bedside, patient was hemodynamically stable, feels overall weak after being in the hospital for so many days per patient. Patient reports eating okay, moving bowels per goal. Patient has been advised regarding fluid restriction and need for ongoing diuresis. Also patient has been advised on low-salt diet. Discussed with nephrology, increasing torsemide 100 mg once a day to 100 mg twice a day and increasing Aldactone 25 mg daily to 25 mg twice daily. Patient is being discharged to SNF with following instruction at the point of discharge: Follow-up with your primary care physician within a week time and likely you will need labs CBC/CMP/magnesium/phosphorus. Because of your decompensated liver cirrhosis with ascites, you underwent extensive diuresis. Almost 46 L of fluids were taken out. You will be discharged on diuretics torsemide 100 mg twice a day and Aldactone 25 mg twice a day. Follow-up with the GI doctor in 2 to 4 weeks upon discharge. Follow-up with your kidney doctor in 1 to 2 weeks upon discharge. Follow-up with the liver transplant team as an outpatient. Consider discussing with palliative care DrManeula Upon discharge. Coordinate with your primary care office to facilitate referral to palliative care doctor. Maintain low-sodium diet of less than 2 g a day, maintain fluid restriction of 1500 mL a day. You underwent EGD scope while in the hospital, you will need repeat EGD in 1 year. Coordinate with your GI office to set up the test. Take your medications as prescribed. Please make sure that you are able to get your medications today by calling your pharmacy before you leave the hospital so that your treatment continuity is not broken. Home Health Attestation I certify that this patient is under my care and that I, or a physicians guest services assistant working with me, had a face to-face encounter that meets the home health [id number] encounter requirements with this patient. The encounter with the patient was in whole, or in part, for the following medical condition, which is the primary reason for home health care (list medical condition): I certify that, based on my findings, the following services are medically necessary home health services: My clinical findings support the need for the above services because: Further, I certify that my clinical findings support that this patient is homebound (i.e. absences from home require considerable and taxing effort and are for medical reasons or samaritan services or infrequently or of short duration when for other reasons) because: Certification for Home Health Services: Based on the above findings, I certify that this patient is confined to the home and needs intermittent fci care, physical therapy and/or speech therapy or continues to need occupational therapy. The patient is under my care, and I have initiated the establishment of the plan of care. This patient will be followed by a physician who will periodically review the plan of care. Total Time Total Time Spent Total Time Spent (In Minutes): 45 Discharge Plan Discharge Items Patient Disposition: Transfer Longterm Fac Reason For Visit: GENERALIZED EDEMA,SOB Discharge Diagnosis: Cirrhosis secondary to Donis, decompensated with ascites Hyponatremia, likely hypervolemic hyponatremia Acute renal failure, resolved. Activity: Resume your previous activity Non-emergency contact: Primary Care Provider Call non-emergency contact if: you have any medication questions, your symptoms worsen and your temperature is above 101.5 Follow-up/Referrals: Mark Caal MD [Primary Care Provider] - Diet: Carb Consistent or DM2, Low Sodium (2gm) and Vegetarian (Lacto-Ovo) Fluids: 1500ml (6 cups) Addtl Attending Provider Instructions: Follow-up with your primary care physician within a week time and likely you will need labs CBC/CMP/magnesium/phosphorus. Because of your decompensated liver cirrhosis with ascites, you underwent extensive diuresis. Almost 46 L of fluids were taken out. You will be discharged on diuretics torsemide 100 mg twice a day and Aldactone 25 mg twice a day. Follow-up with the GI doctor in 2 to 4 weeks upon discharge. Follow-up with your kidney doctor in 1 to 2 weeks upon discharge. Follow-up with the liver transplant team as an outpatient. Consider discussing with palliative care Upon discharge. Coordinate with your primary care office to facilitate referral to palliative care doctor. Maintain low-sodium diet of less than 2 g a day, maintain fluid restriction of 1500 mL a day. You underwent EGD scope while in the hospital, you will need repeat EGD in 1 year. Coordinate with your GI office to set up the test. Take your medications as prescribed. Please make sure that you are able to get your medications today by calling your pharmacy before you leave the hospital so that your treatment continuity is not broken. Pending Studies at Discharge: No Stand-Alone Forms: My [facility] Skilled Items Patient informed of condition?: Yes DNR: Yes Discharge Level of Care: Skilled Communicable Disease: No Discharge Prognosis: Stable Lines: None Urinary Catheter: No Medications and DC Order Prescriptions: New spironolactone 25 mg Tablet 25 mg PO BID Qty: 60 0RF ferrous sulfate 325 mg (65 mg iron) tablet 325 mg PO DAILY Qty: 30 0RF lactulose 10 gram/15 mL (15 mL) Solution 30 g PO TID PRN (Reason: laxative effect) Qty: 1440 0RF Rx Instructions: Three times a day as needed for goal of 3-5 bowel movements a day. potassium chloride 20 mEq Tablet,Er Particles/Crystals 20 meq PO QAM Qty: 30 0RF magnesium oxide 400 mg (241.3 mg magnesium) Tablet 400 mg PO BID Qty: 60 0RF pantoprazole 40 mg Tablet,Delayed Release (Dr/Ec) 40 mg PO QAM Qty: 30 0RF Continued calcium carbonate-vitamin D3 600 mg(1,500mg) -400 unit capsule 1 cap PO BID levalbuterol tartrate 45 mcg/actuation HFA aerosol inhaler 1 puff inhalation Q4H PRN (Reason: Wheezing) acetaminophen [Tylenol 8 Hour] 650 mg Tablet Extended Release 650 mg PO Q8H PRN (Reason: Pain) (DME) OneTouch Verio test strips Strip See Rx Instructions .ROUTE .MEDSUPPLY Qty: 50 0RF Rx Instructions: Check Blood sugar levels once per day as advised (DME) lancets [OneTouch Delica Lancets] 30 gauge misc See Rx Instructions .ROUTE .MEDSUPPLY Qty: 100 0RF Rx Instructions: Check Blood sugar levels once per day as advised latanoprost 0.005 % drops 1 drp OPB HS pantoprazole 40 mg tablet,delayed release (DR/EC) 40 mg PO DAILYBB montelukast 10 mg tablet 10 mg PO QAM milk thistle seed extract 175 mg Tablet 175 mg PO QAM cyclosporine [Restasis] 0.05 % Dropperette 1 drp OPHTHALMIC (EYE) QAM cinnamon bark [Cinnamon] 500 mg Capsule 1,000 mg PO TID fluticasone propionate 110 mcg/actuation HFA aerosol inhaler 2 puff INHALATION AMPM garlic 100 mg Tablet 1,000 mg PO BID guaifenesin [Cough Syrup] 100 mg/5 mL liquid 200 mg PO Q6H PRN (Reason: cough) Qty: 473 0RF Phospha 250 Neutral 250 mg Tablet 1 tab PO BID Qty: 60 0RF docusate sodium 100 mg Capsule 100 mg PO TID PRN (Reason: Constipation) levalbuterol HCl 1.25 mg/3 mL Solution For Nebulization 1.25 mg INHALATION Q4H PRN (Reason: Wheezing) Culturelle 10 billion cell Capsule 1 cap PO DAILY Vitron-C 65 mg iron- 125 mg Tablet,Delayed Release (Dr/Ec) 1 tab PO HS psyllium husk 6 gram Powder In Packet 6 g PO TID PRN (Reason: Constipation) Changed torsemide 100 mg tablet 100 mg PO BID Qty: 60 0RF Discontinued potassium chloride 20 mEq tablet extended release 40 meq PO QAM lactulose 10 gram/15 mL (15 mL) solution 45 g PO DAILY PRN (Reason: constipation) Discharge Orders: Discharge Order (Routine); Ordered 06/12/23 Ordered By: Gabriela Sebastian/Other Patient Handouts: 5 Steps for Eating Healthier Admission Data Admit Date/Time: 05/15/23 19:24 Attending Provider: Gabriela Guadarrama Admit Provider: Enedelia Melvin Primary Care Provider: Mark Caal Other Providers: Ángela Ding; Jaime Foster; Maryanne Sosa; Mahsa Calvo; Steve Alcala; Elmer Francisco,[facility]; [facility],; Lili,[facility]; Pedro Zhong; Ian Brown; Kina Boo; Shahana Mendes; Danni Campa; Maricarmen,[place]; Cyrus Abraham; Andres Singh; Daniel Elizabeth; Lubna Dubois; Micheal Hodge; Emma Magana; Lauren Vega; Margy Jacob; Monique Mcfarlane; Lisa Sullivan; Vahid Erickson; Sukhjidner Rogel; Aniyah Mora; Екатерина Jackson Jr Other Interventions: Discharge Summary Assessment (RN) Last Done: 06/10/23 09:14
[2023-06-12] MEDS ORDERED: SPIRONOLACTONE 25 MG TAB PO SCH (21:00)
[2023-06-12] MEDS ORDERED: TORSEMIDE 100 MG TAB PO SCH (21:00)
== END 2023-06-12 14:13 | DRG 432 ==
LOC: ED 16:13 → 2E 19:24 → SUATTDRO 19:24 → 2E 20:55

== ENCOUNTER 2023-08-07 17:12 | Inpatient (IN) ==
--- NOTE | 2023-08-07 18:03 | XRay Report ---
XR chest 1V portable CLINICAL HISTORY: weakness TECHNIQUE: Single frontal radiograph of the chest was obtained. Comparison: Comparison is made to chest radiograph 05/15/2023 FINDINGS: No lines and tubes are seen. Calcified aortic knob is seen. Prominence and cephalization of the vascu lature is seen. No evidence of pleural effusion or pneumothorax. IMPRESSION: Pulmonary vascular congestion. ACT 112: Negative or not required by law. Electronically signed by: Jose Landin M.D. 08/07/2023 6:02 PM
--- NOTE | 2023-08-07 18:09 | CT Scan Report ---
CT head/brain wo con CLINICAL HISTORY: AMS Technique: Contiguous axial CT images of the head were acquired from the base of the skull to the ashley lala without intravenous contrast administration. Images were viewed in brain, [facility]. Automated dose lowering techniques and/or adjustment according to patient size were utilized for this exam. Comparison: None available at the time of this dictation. Findings: Areas of decreased attenuation are present in the periventricular and subcortical white matter bilate rally consistent with small vessel ischemic disease. Generalized cerebral atrophy with commensurate e nlargement of the ventricles, sulci, and cisterns is also present. There is no acute intracranial hem orrhage or evidence of acute territorial infarction. No shift of the midline structures, mass effect, or extra-axial abnormalities are shown. Atherosclerotic calcifications are present in the intracran ial segments of the internal carotid arteries. Imaged portions of the paranasal sinuses and mastoid air cells are clear. The orbits appear normal. There are no acute fractures of the calvaria or scalp swelling. Impression: No acute intracranial hemorrhage, no evidence of acute territorial infarction or other acute intracra nial disease process. ACT 112: Negative or not required by law. Electronically signed by: Jose Landin M.D. 08/07/2023 6:07 PM
[2023-08-07 18:18] LABS: Appearance Urine Clear (Clear); Bilirubin Urine Negative (Negative); Blood Urine Negative (Negative); Color Urine Dark Yellow; Glucose Urine UA Negative (Negative); Ketones Urine 1+ (Negative); Leukocyte Esterase Urine Negative (Negative); Nitrite Urine Negative (Negative); Protein Urine Negative (Negative); Specific Gravity Urine 1.019 (1.000-1.030); Urobilinogen Urine Negative (Negative); pH Urine 5.5 (4.5-7.5)
[2023-08-07] MEDS: FUROSEMIDE 40 MG/4 ML VIAL IV ONE (18:20)
[2023-08-07 18:54] LABS: Basophils # (auto) 0.01 K/uL (0.00-0.20); Basophils % (auto) 0.1 %; Hematocrit (blood only) 25.4 % (37.0-47.0); Hemoglobin 8.6 g/dl (12.0-16.0); Immature Granulocytes # (auto) 0.05 K/uL (0.01-0.20); Immature Granulocytes % (auto) 0.4 %; Lymphocytes # (auto) 0.57 K/uL (1.20-3.40); Lymphocytes % (auto) 4.8 %; Mean Corpuscular Hemoglobin 32.2 pg (25.0-34.0); Mean Corpuscular Hgb Conc 33.9 g/dL (32.0-36.0); Mean Corpuscular Volume 95.1 fL (80.0-100.0); Mean Platelet Volume 9.2 fL (9.4-12.4); Monocytes # (auto) 1.89 K/uL (0.11-0.59); Monocytes % (auto) 15.9 %; Neutrophils # (auto) 9.38 K/uL (1.40-6.50); Neutrophils % (auto) 78.8 %; Platelet Count 143 K/uL (130-400); RDW Coefficient of Variation 16.5 % (11.5-14.5); RDW Standard Deviation 57.2 fL (36.4-46.3); Red Blood Count 2.67 M/uL (4.20-5.40)
[2023-08-07 19:07] LABS: Alanine Aminotransferase 36 U/L (7-52); Albumin Globulin Ratio 0.7 (0.9-2); Albumin Level 2.5 gm/dl (3.4-5.0); Alkaline Phosphatase 212 U/L (34-104); Anion Gap 10 (3-11); Aspartate Aminotransferase 76 U/L (13-39); BUN Creatinine Ratio 31.1 (10-20); Bilirubin,Total 2.7 mg/dl (0.2-1.0); Blood Urea Nitrogen 38 mg/dl (6-23); Calcium 8.3 mg/dl (8.6-10.3); Carbon Dioxide 18 mmol/L (21-32); Chloride 101 mmol/L (98-107); Est GFR (African American) 51.6 ml/min; Est GFR (Non-African American) 44.5 ml/min; Globulin 3.5 gm/dl (2.5-4.0); Glucose 97 mg/dl (70-99(Fasting)); Magnesium 2.3 mg/dl (1.7-2.4); Potassium 5.5 mmol/L (3.5-5.1); Sodium 129 mmol/L (136-145)
[2023-08-07 19:15] LABS: INR 1.2 (0.9-1.1); Prothrombin Time 13.5 Seconds (9.0-12.0)
[2023-08-07 19:23] LABS: Thyroid Stimulating Hormone 2.593 uIu/ml (0.300-4.500)
[2023-08-07 19:54] LABS: Troponin I High Sensitivity 122.2 pg/ml (0-14)
[2023-08-07] MEDS: LACTULOSE SYRUP 30 GM/45 ML UDP NG STA (19:55)
[2023-08-07] MEDS: SODIUM BICARB 8.4% INJ 50 MEQ/50 ML SYR IV STA (20:15)
[2023-08-07] MEDS: ALBUMIN 25% 25 GM/100 ML VIAL IV ONE (20:18)
--- NOTE | 2023-08-07 20:55 | History & Physical Report ---
Date of Service August 07, 2023 Assessment & Plan (1) Encephalopathy: Plan: Hepatic encephalopathy History NAFLD cirrhosis Patient unable to comply with PCP lactulose recommendations from last month due to functional disability/home situation (patient does not seem like he is able to care for patient given her multiple medical issues) Possibly precipitated by CAP possible aspiration, possible sepsis hx chronic diastolic heart failure (EF 70%, TTE 2022), equivocal volume status as patient seems intravascularly dry albeit third spacing from NAFLD cirrhosis Acute on chronic hyponatremia secondary illness Troponin elevation secondary illness HTN, BP on the lower side COPD/bronchial asthma as per records, some wheezing noted on exam DM2 diet-controlled, well-controlled as of outpatient hemoglobin A1c of 5.2 last March 2023 Left breast cancer status post surgery/radiation chronic anemia, hemoglobin at baseline chronic thrombocytopenia secondary to liver disease PCU given troponin elevation Facilitate lactulose GI consult re: hepatic encephalopathy CS, Doxycycline and Unasyn Aspiration precautions, [employer] eval Follow troponin Nephrology consult Re: Hyponatremia, ARF IV albumin, hold home diuretic until patient seen by Nephrology ISS BG goal 1 10-1 40, carb count coverage, update hemoglobin A1c PT OT eval once medically stable. May need placement. DVT prophylaxis. SCDs Re: Thrombocytopenia DNR Patient (Mr. Liang Knapp) updated of patient issues over the phone. He requests updates from providers through [phone]. Text document was generated using [employer] voice recognition software. It may contain grammatical or spelling errors. Kindly contact undersigned for clarification of any documentation item in question. History of Present Illness Chief Complaint: Slurred speech, confusion as per Primary Care Provider: Mark Caal MD History obtained from patient family and records. Unable to obtain history from patient secondary to obtunded state. Medical history significant for chronic diastolic heart failure (EF 70%, TTE 2022), HTN, COPD/bronchial asthma as per records, NAFLD cirrhosis, DM2 diet- controlled, chronic hyponatremia, left breast cancer status post surgery/radiation, chronic tremors, chronic anemia (baseline hemoglobin 8-9), chronic thrombocytopenia. Monthly admissions since February 2023. Prolonged confinement from May 15, 2023 to June 12, 2023 for decompensated cirrhosis and hypervolemic hyponatremia. Patient discharged to [facility] on 1.5 fluid restriction and diuretic medications as per Nephrology recommendations. took patient home a few weeks ago after being notified that insurance could not pay for [facility] stay anymore. Hyperammonemia on outpatient blood work following PCP appointment last month. Unable to contact patient/family to relay PCP recommendations for lactulose. 2 weeks ago, patient noted to be retaining fluid again as per . Patient taking medications like she should as per . No consultations done. Yesterday, patient noted to be more sleepy than usual. Seems to be coughing a lot of junk. Patient without chest pain or SOB complaints as per . No abdominal pain/black/bloody stools. Patient noted to be hypoglycemic at home by EMS. BSG 60s. Dextrose administered at home. Patient brought to ER for worsening symptoms. Lactulose administered via NGT placed at the ER. 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 Allergies Allergy/AdvReac Type Severity Reaction Status Date / Time albuterol Allergy Severe HIVES, Verified 08/07/23 19:20 DIFFICULTY WALKING, SHAKINESS, STUTTERING azithromycin Allergy Severe SHORT OF Verified 08/07/23 19:20 BREATH, PALPITATIONS tramadol Allergy Severe SEE COMMENT Verified 08/07/23 19:20 ibuprofen Allergy Intermediate Hives Verified 08/07/23 19:20 cephalexin AdvReac Severe "HEART Verified 08/07/23 19:20 PALPATIONS" Opioids - Morphine Analogues AdvReac Severe "opiates Verified 08/07/23 19:20 cause decreased respirations" Opioids-Meperidine and AdvReac Severe "opiates Verified 08/07/23 19:20 Related cause decreased respirations" Opioids-Methadone and Related AdvReac Severe "opiates Verified 08/07/23 19:20 cause decreased respirations" morphine AdvReac Unknown PT STATES Verified 08/07/23 19:20 "BUILT UP A TOLERANCE TO MED, DOESN'T WORK". Home Medications Medication Instructions Recorded Confirmed Type calcium carbonate 600 mg-vitamin 1 cap PO BID 02/11/18 08/07/23 History D3 10 mcg (400 unit) capsule latanoprost 0.005 % eye drops 1 drp OPB HS 04/11/18 08/07/23 History montelukast 10 mg tablet 10 mg PO QAM 04/11/18 08/07/23 History pantoprazole 40 mg tablet,delayed 40 mg PO DAILYBB 04/11/18 08/07/23 History release levalbuterol tartrate 45 1 puff inhalation Q4H PRN Wheezing 11/11/18 08/07/23 History mcg/actuation aerosol inhaler milk thistle seed extract 175 mg 175 mg PO QAM 01/21/19 08/07/23 History tablet acetaminophen 650 mg 650 mg PO Q8H PRN Pain 07/14/20 08/07/23 History tablet,extended release (Tylenol 8 Hour) blood sugar diagnostic (OneTouch #50 ea 07/15/20 Rx Verio test strips) lancets 30 gauge (ShortlistTouch Delica #100 ea 07/15/20 Rx Lancets) cyclosporine 0.05 % eye drops in a 1 drp ophthalmic (eye) QAM 12/22/20 08/07/23 History dropperette (Restasis) cinnamon bark 500 mg capsule 1,000 mg PO TID 01/20/22 08/07/23 History (Cinnamon) fluticasone propionate 110 2 puff inhalation AMPM 01/20/22 08/07/23 History mcg/actuation HFA aerosol inhaler garlic 100 mg tablet 1,000 mg PO BID 01/20/22 08/07/23 History guaifenesin 100 mg/5 mL oral 200 mg (10 mL) PO Q6H PRN cough 01/22/22 08/07/23 Rx liquid (Cough Syrup) #473 mL sodium di- and 1 tab PO BID #60 tabs 03/26/23 08/07/23 Rx monophosphate-potassium phos monobasic 250 mg tablet (Phospha Neutral) docusate sodium 100 mg capsule 100 mg PO TID PRN Constipation 05/15/23 08/07/23 History iron,carbonyl 65 mg-vitamin C 125 1 tab PO HS 05/15/23 08/07/23 History mg tablet,delayed release (Vitron-C) levalbuterol HCl 1.25 mg/3 mL 1.25 mg inhalation Q4H PRN Wheezing 05/15/23 08/07/23 History solution for nebulization psyllium husk 6 gram oral powder 6 g PO TID PRN Constipation 05/15/23 08/07/23 History packet ferrous sulfate 325 mg (65 mg 325 mg PO DAILY #30 tabs 06/12/23 08/07/23 Rx iron) tablet lactulose 10 gram/15 mL (15 mL) 30 g (45 mL) PO TID PRN laxative 06/12/23 08/07/23 Rx oral solution effect #1,440 mL magnesium oxide 400 mg (241.3 mg 400 mg PO BID #60 tabs 06/12/23 08/07/23 Rx magnesium) tablet potassium chloride 20 mEq 20 meq PO QAM #30 tabs 06/12/23 08/07/23 Rx tablet,extended release(part/cryst) spironolactone 25 mg tablet 25 mg PO BID #60 tabs 06/12/23 08/07/23 Rx Saccharomyces boulardii 250 mg 250 mg PO DAILY 08/07/23 08/07/23 History capsule (Florastor) denosumab 60 mg/mL subcutaneous 60 mg subcut .[id number] 08/07/23 08/07/23 History syringe (Prolia) torsemide 100 mg tablet 150 mg PO QAM 08/07/23 08/07/23 History Past Med/Surg History Medical History Encounter for pre-operative examination Paroxysmal atrial tachycardia Abnormal chest x-ray Bronchitis Cirrhosis Incarcerated hernia of abdominal cavity Osteoarthritis Fibromyalgia Cirrhosis of liver not due to alcohol Thyroid goiter just monitoring for now Glaucoma bilt Migraine Sinus arrhythmia Chronic obstructive pulmonary disease Esophageal varices hx of banding Diverticulitis Malignant neoplasm of left breast, stage 1, estrogen receptor positive (09/26/17) "Status post bilateral breast reduction in 1998 Status post abnormal left breast mammogram Status post ultrasound core needle biopsy September 26, 2017 Infiltrating carcinoma, grade 2 Estrogen receptor positive, progesterone receptor positive, 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 Status post needle localization lumpectomy and sentinel lymph node biopsy October 16, 2017 Stage pT1c pN0 M0 Status post completion of radiation therapy January 01, 2018. She received 5130 cGy utilizing hypo-fractionation." On 11/19/17 11:17 Blossom Brandt wrote "Status post bilateral breast reduction in 1998 Status post abnormal left breast mammogram Status post ultrasound core needle biopsy September 26, 2017 Infiltrating carcinoma, grade 2 Estrogen receptor positive, progesterone receptor positive, 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 Status post needle localization lumpectomy and sentinel lymph node biopsy October 16, 2017 Stage pT1c pN0 M0 Status post completion of radiation therapy January 01, 2018. She received 5130 centigrade utilizing hypo-fractionation. Rectal vaginal fistula Asthma HTN (hypertension) CAD (coronary artery disease) Surgical History Status post left foot surgery planter fascitis Status post trigger finger release right thumb History of surgical removal of ganglion cyst right wrist History of repair of rectocele History of incisional hernia repair x8 History of ileostomy 1998 History of closure of ileostomy 1998---1 month after created History of bilateral salpingo-oophorectomy (BSO) History of colonoscopy History of appendectomy History of esophagogastroduodenoscopy (EGD) History of needle biopsy left breast---malignant History of lumpectomy of left breast with lymph node removal History of tonsillectomy and adenoidectomy Status post correction of deviated nasal septum History of ear surgery right ear "doctor broke my ear drum to drain the fluid" History of bilateral cataract extraction History of total right knee replacement x2 H/O arthroscopy of right knee History of cholecystectomy History of colostomy reversal 1997--8 weeks after colectomy History of partial colectomy 1997--diverticuli pocket ruptured @ [facility] H/O bilateral breast reduction surgery H/O: hysterectomy H/O tooth extraction all teeth removed Family History Sister Family history of diabetes mellitus Grandfather (Paternal) Family history of diabetes mellitus Family hx of colon cancer Grandfather (Maternal) Family history of diabetes mellitus Family/Other Family history of diabetes mellitus 2 cousins Other No family history of adverse response to anesthesia Social History Smoking Status: Never smoker Second Hand Exposure: No; Do You Dip or Chew Tobacco: No; Hx Alcohol Use: No Hx Substance Use: No Preferred Language: Bruneian Communication Ability: Effective Air Tool Operator Required: No Beliefs That Will Affect Care: None marital status: Current Living Situation: Spouse Current Living Situation Comment: From home with current occupational status: retired How many Children do You have: 1 Other Information That Helps Us Care for You: No Feels Safe at Home: Yes Assistive Devices: Denture - Upper, Denture - Lower and Glasses Review of Systems Review of Systems: Could not be reliably obtained secondary to obtunded state Physical Exam Physical Exam: GENERAL: Obtunded, chronically ill, audible wheezing SKIN: Pallor, warm HEENT: pale palpebral conjunctivae, dry buccal mucosa, NGT in place NECK : Supple, no tenderness CHEST : Decreased breath sounds, occasional expiratory wheezes, no tenderness HEART : RRR, no obvious murmurs ABDOMEN: Marked distention, nontender EXTREMITIES : Minimal LE swelling, no LE tenderness, no other conspicuous deformities noted NEUROLOGIC : Obtunded, no facial asymmetry, gait and stance not assessed Results & Data Results & Data Vital Signs (Past 12 Hours) Vital Signs Pulse Pulse Resp BP BP Pulse Ox O2 Del Method 08/07/23 20:12 91 H 17 132/81 96 Room Air 08/07/23 19:13 80 08/07/23 18:07 92 H 18 100 08/07/23 17:28 98 Room Air 08/07/23 17:25 95 H 18 125/92 98 Room Air FiO2 08/07/23 20:12 08/07/23 19:13 08/07/23 18:07 30 08/07/23 17:28 08/07/23 17:25 Laboratory Results Laboratory Results WBC 11.90 K/ul (4.8-10.8) H 08/07/23 18:26 RBC 2.67 M/uL (4.20-5.40) L 08/07/23 18:26 Hgb 8.6 g/dl (12.0-16.0) L 08/07/23 18:26 Hct 25.4 % (37.0-47.0) L 08/07/23 18: MCV 95.1 fL (80.0-100.0) 08/07/23 18:26 MCH 32.2 pg (25.0-34.0) 08/07/23 18: MCHC 33.9 g/dL (32.0-36.0) 08/07/23 18: RDW Std Deviation 57.2 fL (36.4-46.3) H 08/07/23 18:26 RDW Coeff of Monster 16.5 % (11.5-14.5) H 08/07/23 18: Plt Count 143 K/uL (130-400) 08/07/23 18: MPV 9.2 fL (9.4-12.4) L 08/07/23 18: Immature Gran % (Auto) 0.4 % 08/07/23 18: Neut % (Auto) 78.8 % 08/07/23 18: Lymph % (Auto) 4.8 % 08/07/23 18: [place] % (Auto) 15.9 % 08/07/23 18: Eos % (Auto) 0.0 % 08/07/23 18: Baso % (Auto) 0.1 % 08/07/23 18: Neut # (Auto) 9.38 K/uL (1.40-6.50) H 08/07/23 18: Lymph # (Auto) 0.57 K/uL (1.20-3.40) L 08/07/23 18:26 [place] # (Auto) 1.89 K/uL (0.11-0.59) H 08/07/23 18: Eos # (Auto) 0.00 K/uL (0.00-0.50) 08/07/23 18: Baso # (Auto) 0.01 K/uL (0.00-0.20) 08/07/23 18: Immature Gran # (Auto) 0.05 K/uL (0.01-0.20) 08/07/23 18: PT 13.5 Seconds (9.0-12.0) H 08/07/23 18:26 INR 1.2 (0.9-1.1) H 08/07/23 18:26 Sodium 129 mmol/L (136-145) L 08/07/23 18: Potassium 5.5 mmol/L (3.5-5.1) H 08/07/23 18: Chloride 101 mmol/L (98-107) 08/07/23 18: Carbon Dioxide 18 mmol/L (21-32) L 08/07/23 18: Anion Gap 10 (3-11) 08/07/23 18:26 BUN 38 mg/dl (6-23) H 08/07/23 18: Creatinine 1.22 mg/dl (0.6-1.2) H 08/07/23 18: Est Cr Clr Drug Dosing Not Reportable 08/07/23 18: Est GFR ( Amer) 51.6 ml/min 08/07/23 18: Est GFR (Non-Af Amer) 44.5 ml/min 08/07/23 18: BUN/Creatinine Ratio 31.1 (10-20) H 08/07/23 18: Glucose 97 mg/dl (70-99(Fasting)) 08/07/23 18: Osmolality 282 mOsm/kg (280-300) 08/07/23 18: Lactate 2.1 mmol/L (0.4-2.0) H* 08/07/23 18: Calcium 8.3 mg/dl (8.6-10.3) L 08/07/23 18: Magnesium 2.3 mg/dl (1.7-2.4) 08/07/23 18: Total Bilirubin 2.7 mg/dl (0.2-1.0) H 08/07/23 18: AST 76 U/L (13-39) H 08/07/23 18: ALT 36 U/L (7-52) 08/07/23 18: Alkaline Phosphatase 212 U/L (34-104) H 08/07/23 18: Ammonia 144.0 umol/L (18-72) H 08/07/23 18: Troponin I High Sens 122.2 pg/ml (0-14) H* 08/07/23 18: Total Protein 6.0 gm/dl (6.0-8.3) 08/07/23 18: Albumin 2.5 gm/dl (3.4-5.0) L 08/07/23 18: Globulin 3.5 gm/dl (2.5-4.0) 08/07/23 18: Albumin/Globulin Ratio 0.7 (0.9-2) L 08/07/23 18: TSH 2.593 uIu/ml (0.300-4.500) 08/07/23 18:26 Urine Color Dark Yellow 08/07/23 18:05 Urine Appearance Clear (Clear) 08/07/23 18:05 Urine pH 5.5 (4.5-7.5) 08/07/23 18:05 Ur Specific [place] 1.019 (1.000-1.030) 08/07/23 18:05 Urine Protein Negative (Negative) 08/07/23 18:05 Urine Glucose (UA) Negative (Negative) 08/07/23 18:05 Urine Ketones 1+ (Negative) H 08/07/23 18:05 Urine Blood Negative (Negative) 08/07/23 18:05 Urine Nitrite Negative (Negative) 08/07/23 18:05 Urine Bilirubin Negative (Negative) 08/07/23 18:05 Urine Urobilinogen Negative (Negative) 08/07/23 18:05 Ur Leukocyte Esterase Negative (Negative) 08/07/23 18:05 Impressions Chest X-Ray 08/07/23 17:25 XR chest 1V portable CLINICAL HISTORY: weakness TECHNIQUE: Single frontal radiograph of the chest was obtained. Comparison: Comparison is made to chest radiograph 05/15/2023 FINDINGS: No lines and tubes are seen. Calcified aortic knob is seen. Prominence and cephalization of the vasculature is seen. No evidence of pleural effusion or pneumothorax. IMPRESSION: Pulmonary vascular congestion. ACT 112: Negative or not required by law. Electronically signed by: Jose Landin M.D. 08/07/2023 6:[address] 08/07/23 17:26 CT head/brain wo con CLINICAL HISTORY: AMS Technique: Contiguous axial CT images of the head were acquired from the base of the skull to the vertex without intravenous contrast administration. Images were viewed in brain, subdural and bone windows. Automated dose lowering techniques and/or adjustment according to patient size were utilized for this exam. Comparison: None available at the time of this dictation. Findings: Areas of decreased attenuation are present in the periventricular and subcortical white matter bilaterally consistent with small vessel ischemic disease. Generalized cerebral atrophy with commensurate enlargement of the ventricles, sulci, and cisterns is also present. There is no acute intracranial hemorrhage or evidence of acute territorial infarction. No shift of the midline structures, mass effect, or extra-axial abnormalities are shown. Atherosclerotic calcifications are present in the intracranial segments of the internal carotid arteries. Imaged portions of the paranasal sinuses and mastoid air cells are clear. The orbits appear normal. There are no acute fractures of the calvaria or scalp swelling. Impression: No acute intracranial hemorrhage, no evidence of acute territorial infarction or other acute intracranial disease process. ACT 112: Negative or not required by law. Electronically signed by: Jose Landin M.D. 08/07/2023 6:[address] chest: 1. Widespread and patchy bilateral ground-glass infiltrates concerning for viral/atypical pneumonia. 2. Cirrhotic liver. Moderate to large ascites. Anasarca. 3. Fluid-filled bowel may represent ileus or enteritis. Diagnostic Findings EKG as per my interpretation : Rate 95, NSR, normal axis, no ischemia, low voltage, PVCs
[2023-08-07] MEDS ORDERED: ACETAMINOPHEN 500 MG TAB PO PRN (21:01)
[2023-08-07] MEDS ORDERED: PROMETHAZINE HCL 6.25 MG in SODIUM CHLORIDE 0.9% 50 ML IV PRN (21:01)
[2023-08-07] MEDS ORDERED: DEXTROSE 50% 50 ML SYRINGE IV PRN (21:08)
[2023-08-07] MEDS ORDERED: GLUCOSE 10 TAB/TUBE PO PRN (21:08)
[2023-08-07] MEDS ORDERED: GLUCOSE 40% GEL 15 GM TUBE PO PRN (21:08)
[2023-08-07] MEDS ORDERED: CARBOHYDRATES FOR HYPOGLYCEMIA PO PRN (21:08)
[2023-08-07] MEDS ORDERED: GLUCAGON FOR INJ 1 MG VIAL SQ PRN (21:08)
[2023-08-07] MEDS: LEVALBUTEROL 1.25 MG/3 ML NEB NEB STA (21:33)
[2023-08-07] MEDS: IPRATROPIUM BROMIDE NEB SOLN 0.02% 0.5MG/2.5ML VIAL NEB STA (21:33)
[2023-08-07] MEDS: INSULIN ASPART PER UNIT CHARGE SC SCH (21:40)
[2023-08-07 22:03] LABS: Potassium 5.6 mmol/L (3.5-5.1)
[2023-08-07 22:11] LABS: Troponin I High Sensitivity 110.3 pg/ml (0-14)
[2023-08-07 22:28] LABS: Influenza A virus by PCR Negative (Neg); Influenza B virus by PCR Negative (Neg); RSV by PCR Negative (Neg); SARS CoV2 RNA(COVID-19) Ceph NEGATIVE (Negative)
[2023-08-07] MEDS ORDERED: LACTULOSE SYRUP 30 GM/45 ML UDP PO SCH (23:20)
[2023-08-07] MEDS ORDERED: STAT IV/IM STA (23:30)
[2023-08-07] MEDS ORDERED: ARTIFICIAL TEARS OP PRN (23:57)
[2023-08-07] MEDS: LATANOPROST 0.005% OP SOLN 2.5 ML BTL OPB SCH (23:57)
[2023-08-08] MEDS: DEXTROSE 50% 50 ML SYRINGE IV ONE (00:09)
[2023-08-08] MEDS: CALCIUM GLUCONATE 10% 1,000 MG in SODIUM CHLOR 0.9% MINI-B 50 ML IV ONE (00:10)
[2023-08-08] MEDS: INSULIN HUMAN REGULAR PER UNIT 5 UNITS in SYRINGE 4.95 ML IV ONE (00:10)
--- NOTE | 2023-08-08 00:19 | CT Scan Report ---
Exam(s): CT CHEST Without Contrast EXAM: CT Chest Without Intravenous Contrast CLINICAL HISTORY: Reason for exam: cough. TECHNIQUE: Axial computed tomography images of the chest without intravenous contrast. CTDI is 28 mGy and DLP is 938 mGy-cm. Automated exposure control was utilized for the study. A dose lowering technique was utilized adhering to the principles of ALARA. COMPARISON: 12/22/20 FINDINGS: Evaluation is limited by motion. Heart size is normal. There is no significant coronary artery atherosclerosis. There is no pericardial effusion. Thoracic aorta is normal in caliber. Central pulmonary artery enlargement may represent pulmonary arterial hypertension. Thyroid gland is normal. There is no mediastinal, hilar, or axillary adenopathy by CT size criteria. There is a large volume of ascites beneath the right hemidiaphragm resulting in right hemidiaphragm elevation. There is right basilar compressive atelectasis. Additionally, there are patchy and widespread bilateral ground-glass infiltrates. There is no significant pleural effusion. There is no pneumothorax. There is no acute fracture or dislocation. Liver is cirrhotic. There is moderate to large ascites in the upper abdomen. Enteric tube extends to the stomach. There are fluid-filled loops of bowel. IMPRESSION: 1. Widespread and patchy bilateral ground-glass infiltrates concerning for viral/atypical pneumonia. 2. Cirrhotic liver. Moderate to large ascites. Anasarca. 3. Fluid-filled bowel may represent ileus or enteritis. Electronically signed by: Harriet Thompson M.D. 08/08/23 00:19 AM
[2023-08-08] MEDS: ALBUMIN 25% 25 GM/100 ML VIAL IV ONE (00:32)
[2023-08-08] MEDS: LACTULOSE SYRUP 30 GM/45 ML UDP NG SCH (00:58)
[2023-08-08] MEDS: FLUTICASONE FUROATE 200MCG 14 PUFFS/INHALER INH SCH (01:27)
[2023-08-08 02:04] LABS: Potassium 4.8 mmol/L (3.5-5.1)
[2023-08-08] MEDS: DOXYCYCLINE HYCLATE 100 MG in DEXTROSE 5% MINI-B 100 ML IV STA (02:05)
[2023-08-08] MEDS: AMPICILLIN/SULBACTAM SOD 3,000 MG in SODIUM CHLOR 0.9% MINI-B 100 ML IV SCH (04:00)
[2023-08-08] MEDS ORDERED: ALBUMIN 25% 25 GM/100 ML VIAL IV SCH ×2 (04:00→09:45)
[2023-08-08] MEDS: PANTOprazole 40 MG TAB PO SCH (04:06)
[2023-08-08] MEDS: MICONAZOLE NITRATE POWDER 85 GM EXT SCH (05:40)
[2023-08-08 07:22] LABS: Basophils # (auto) 0.01 K/uL (0.00-0.20); Basophils % (auto) 0.1 %; Hematocrit (blood only) 21.7 % (37.0-47.0); Immature Granulocytes # (auto) 0.06 K/uL (0.01-0.20); Immature Granulocytes % (auto) 0.6 %; Lymphocytes # (auto) 0.62 K/uL (1.20-3.40); Lymphocytes % (auto) 6.1 %; Mean Corpuscular Hgb Conc 32.3 g/dL (32.0-36.0); Mean Corpuscular Volume 99.1 fL (80.0-100.0); Mean Platelet Volume 9.1 fL (9.4-12.4); Monocytes # (auto) 1.44 K/uL (0.11-0.59); Monocytes % (auto) 14.2 %; Platelet Count 90 K/uL (130-400); RDW Coefficient of Variation 16.7 % (11.5-14.5); RDW Standard Deviation 59.7 fL (36.4-46.3); Red Blood Count 2.19 M/uL (4.20-5.40); White Blood Count 10.13 K/ul (4.8-10.8)
[2023-08-08 07:26] LABS: Albumin Globulin Ratio 1.1 (0.9-2); Albumin Level 2.9 gm/dl (3.4-5.0); BUN Creatinine Ratio 29.1 (10-20); Bilirubin,Total 2.5 mg/dl (0.2-1.0); Calcium 8.8 mg/dl (8.6-10.3); Creatinine Clr Calc Pharmacy 40.7 ml/min; Est GFR (African American) 46.1 ml/min; Est GFR (Non-African American) 39.8 ml/min; Globulin 2.6 gm/dl (2.5-4.0); Potassium 4.7 mmol/L (3.5-5.1); Total Protein 5.5 gm/dl (6.0-8.3)
[2023-08-08 07:44] LABS: Estimated Average Glucose 94 mg/dl; Hemoglobin A1C 4.9 % (4.5-5.6)
[2023-08-08 08:14] LABS: Anisocytosis Present; Polychromasia 1+
--- NOTE | 2023-08-08 09:25 | Gastrointestinal Consultation ---
Date of Consultation August 08, 2023 Assessment & Plan (1) Cirrhosis: (2) Anasarca: (3) Encephalopathy: Pt is a 73 yo female w PMHx of HF, HTN, COPD, asthma, NAFLD cirrhosis, DM II, hyponatremia, hx of L breast ca s/p surgery and XRT, anemia who was brought in by family last night for confusion and slurred speech. Pt is obtunded, unable to obtain hx from her. Workup showed that she has pulmonary vascular congestion, possible pneumonia, anasarca w large volume ascites. - Albumin IV support - Lactulose 30g NGT TID - R/O infectious process: blood, urine culture, US paracentesis w fluid analysis: protein, albumin, cell ct, cx to r/o SBP - Nephrology consult for diuretic management - Check BNP - Will discuss w hospitalist re: family's wishes for pt's goals of care. She is currently DNR/DNI Supervising Physician Co-Signing Physician Notes I saw and evaluated the patient, she appears to have evidence of agonal breathing and was minimally responsive to painful stimuli. The patient does have a history of cirrhosis but has diffuse anasarca and coarse Rales on physical examination. I am concerned that she may have an cardiac process such as congestive heart failure. Would recommend further evaluation with a proBNP, empiric coverage with antibiotics, and repeat imaging to look for evidence of tappable ascites. History of Present Illness Reason for Consultation: Hepatic encephalopathy Requesting Physician: Dr. Annmarie Nascimento Attending Physician: Dr. Andres Singh History of Present Illness Pt is a 73 yo female w PMHx of HF, HTN, COPD, asthma, NAFLD cirrhosis, DM II, hyponatremia, hx of L breast ca s/p surgery and XRT, anemia who was brought in by family last night for confusion and slurred speech. Pt is obtunded, unable to obtain hx from her. Chart including diagnostic test results reviewed. She was hospitalized recently 04/2023 to 05/2023 for decompensated cirrhosis and hypervolemic hyponatremia, DC'd to [facility]. Labs: H/H 12/07, Plt 90, PT/INr 13.5/1.2, Na 133, BUN/Cr 39/1.3, Lactate 2.7, LFTs: Tbili 2.5, AST 68, ALT 69, Alk phos 153, NH3 144, Troponin 110. BNP pending CXR: Pulmonary vascular congestion. CT head: No acute changes CT chest: 1. Widespread and patchy bilateral ground-glass infiltrates concerning for viral/atypical pneumonia. 2. Cirrhotic liver. Moderate to large ascites. Anasarca. 3. Fluid-filled bowel may represent ileus or enteritis. Allergies Allergy/AdvReac Type Severity Reaction Status Date / Time albuterol Allergy Severe HIVES, Verified 08/07/23 19:20 DIFFICULTY WALKING, SHAKINESS, STUTTERING azithromycin Allergy Severe SHORT OF Verified 08/07/23 19:20 BREATH, PALPITATIONS tramadol Allergy Severe SEE COMMENT Verified 08/07/23 19:20 ibuprofen Allergy Intermediate Hives Verified 08/07/23 19:20 cephalexin AdvReac Severe "HEART Verified 08/07/23 19:20 PALPATIONS" Opioids - Morphine Analogues AdvReac Severe "opiates Verified 08/07/23 19:20 cause decreased respirations" Opioids-Meperidine and AdvReac Severe "opiates Verified 08/07/23 19:20 Related cause decreased respirations" Opioids-Methadone and Related AdvReac Severe "opiates Verified 08/07/23 19:20 cause decreased respirations" morphine AdvReac Unknown PT STATES Verified 08/07/23 19:20 "BUILT UP A TOLERANCE TO MED, DOESN'T WORK". Home Medications Medication Instructions Recorded Confirmed Type calcium carbonate 600 mg-vitamin 1 cap PO BID 02/11/18 08/07/23 History D3 10 mcg (400 unit) capsule latanoprost 0.005 % eye drops 1 drp OPB HS 04/11/18 08/07/23 History montelukast 10 mg tablet 10 mg PO QAM 04/11/18 08/07/23 History pantoprazole 40 mg tablet,delayed 40 mg PO DAILYBB 04/11/18 08/07/23 History release levalbuterol tartrate 45 1 puff inhalation Q4H PRN Wheezing 11/11/18 08/07/23 History mcg/actuation aerosol inhaler milk thistle seed extract 175 mg 175 mg PO QAM 01/21/19 08/07/23 History tablet acetaminophen 650 mg 650 mg PO Q8H PRN Pain 07/14/20 08/07/23 History tablet,extended release (Tylenol 8 Hour) blood sugar diagnostic ([facility] ea 07/15/20 Rx Verio test strips) lancets 30 gauge (OneTouch Delica #100 ea 07/15/20 Rx Lancets) cyclosporine 0.05 % eye drops in a 1 drp ophthalmic (eye) QAM 12/22/20 08/07/23 History dropperette (Restasis) cinnamon bark 500 mg capsule 1,000 mg PO TID 01/20/22 08/07/23 History (Cinnamon) fluticasone propionate 110 2 puff inhalation AMPM 01/20/22 08/07/23 History mcg/actuation HFA aerosol inhaler garlic 100 mg tablet 1,000 mg PO BID 01/20/22 08/07/23 History guaifenesin 100 mg/5 mL oral 200 mg (10 mL) PO Q6H PRN cough 01/22/22 08/07/23 Rx liquid (Cough Syrup) #473 mL sodium di- and 1 tab PO BID #60 tabs 03/26/23 08/07/23 Rx monophosphate-potassium phos monobasic 250 mg tablet (Phospha Neutral) docusate sodium 100 mg capsule 100 mg PO TID PRN Constipation 05/15/23 08/07/23 History iron,carbonyl 65 mg-vitamin C 125 1 tab PO HS 05/15/23 08/07/23 History mg tablet,delayed release (Vitron-C) levalbuterol HCl 1.25 mg/3 mL 1.25 mg inhalation Q4H PRN Wheezing 05/15/23 08/07/23 History solution for nebulization psyllium husk 6 gram oral powder 6 g PO TID PRN Constipation 05/15/23 08/07/23 History packet ferrous sulfate 325 mg (65 mg 325 mg PO DAILY #30 tabs 06/12/23 08/07/23 Rx iron) tablet lactulose 10 gram/15 mL (15 mL) 30 g (45 mL) PO TID PRN laxative 06/12/23 08/07/23 Rx oral solution effect #1,440 mL magnesium oxide 400 mg (241.3 mg 400 mg PO BID #60 tabs 06/12/23 08/07/23 Rx magnesium) tablet potassium chloride 20 mEq 20 meq PO QAM #30 tabs 06/12/23 08/07/23 Rx tablet,extended release(part/cryst) spironolactone 25 mg tablet 25 mg PO BID #60 tabs 06/12/23 08/07/23 Rx Saccharomyces boulardii 250 mg 250 mg PO DAILY 08/07/23 08/07/23 History capsule (Florastor) denosumab 60 mg/mL subcutaneous 60 mg subcut .[id number] 08/07/23 08/07/23 History syringe (Prolia) torsemide 100 mg tablet 150 mg PO QAM 08/07/23 08/07/23 History Patient History Medical History (Updated 08/07/23 @ 21:52 by Rios Pike MD) Encounter for pre-operative examination Paroxysmal atrial tachycardia Abnormal chest x-ray Bronchitis Cirrhosis Incarcerated hernia of abdominal cavity Osteoarthritis Fibromyalgia Cirrhosis of liver not due to alcohol Thyroid goiter just monitoring for now Glaucoma bilt Migraine Sinus arrhythmia Chronic obstructive pulmonary disease Esophageal varices hx of banding Diverticulitis Malignant neoplasm of left breast, stage 1, estrogen receptor positive (09/26/17) "Status post bilateral breast reduction in 1998 Status post abnormal left breast mammogram Status post ultrasound core needle biopsy September 26, 2017 Infiltrating carcinoma, grade 2 Estrogen receptor positive, progesterone receptor positive, 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 Status post needle localization lumpectomy and sentinel lymph node biopsy October 16, 2017 Stage pT1c pN0 M0 Status post completion of radiation therapy January 01, 2018. She received 5130 cGy utilizing hypo-fractionation." On 11/19/17 11:17 Blossom Brandt wrote "Status post bilateral breast reduction in 1998 Status post abnormal left breast mammogram Status post ultrasound core needle biopsy September 26, 2017 Infiltrating carcinoma, grade 2 Estrogen receptor positive, progesterone receptor positive, 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 Status post needle localization lumpectomy and sentinel lymph node biopsy October 16, 2017 Stage pT1c pN0 M0 Status post completion of radiation therapy January 01, 2018. She received 5130 centigrade utilizing hypo-fractionation. Rectal vaginal fistula Asthma HTN (hypertension) CAD (coronary artery disease) Surgical History (Updated 07/13/23 @ 00:10 by Background Daemon) Status post left foot surgery planter fascitis Status post trigger finger release right thumb History of surgical removal of ganglion cyst right wrist History of repair of rectocele History of incisional hernia repair x8 History of ileostomy 1998 History of closure of ileostomy 1998---1 month after created History of bilateral salpingo-oophorectomy (BSO) History of colonoscopy History of appendectomy History of esophagogastroduodenoscopy (EGD) History of needle biopsy left breast---malignant History of lumpectomy of left breast with lymph node removal History of tonsillectomy and adenoidectomy Status post correction of deviated nasal septum History of ear surgery right ear "doctor broke my ear drum to drain the fluid" History of bilateral cataract extraction History of total right knee replacement x2 H/O arthroscopy of right knee History of cholecystectomy History of colostomy reversal 1997--8 weeks after colectomy History of partial colectomy 1997--diverticuli pocket ruptured @ [facility] H/O bilateral breast reduction surgery H/O: hysterectomy H/O tooth extraction all teeth removed Family History Sister Family history of diabetes mellitus Grandfather (Paternal) Family history of diabetes mellitus Family hx of colon cancer Grandfather (Maternal) Family history of diabetes mellitus Family/Other Family history of diabetes mellitus 2 cousins Other No family history of adverse response to anesthesia Social History Smoking Status: Never smoker Second Hand Exposure: No; Do You Dip or Chew Tobacco: No; Hx Alcohol Use: No Hx Substance Use: No Preferred Language: Citizen Of [place] Communication Ability: Effective 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 Beliefs That Will Affect Care: None marital status: Current Living Situation: Spouse Current Living Situation Comment: From home with current occupational status: retired How many Children do You have: 1 Other Information That Helps Us Care for You: No Feels Safe at Home: Yes Assistive Devices: Denture - Upper, Denture - Lower and Glasses Review of Systems Review of Systems: Unobtainable due to reduced consciousness Physical Exam Constitutional: + ill appearing and + altered mental sta tus Respiratory: Increased work of breathing, coarse rales bilateral lobes Cardiovascular: RRR, no murmur, + anasarca Gastrointestinal (Abdomen): normal bowel sounds, soft, nontender, no hepatosplenomegaly Skin: no rashes, warm and dry no jaundice Psychiatric: obtunded Lymphatic: + lymphedema Results & Data Vital Signs (Past 12 Hours) Vital Signs Temp Pulse Resp BP Pulse Ox O2 Del Method O2 Flow Rate 08/08/23 07:21 36.3 C L 101 H 18 93/51 L 93 Nasal Cannula 1 08/08/23 06:30 Nasal Cannula 1 08/08/23 03:34 Nasal Cannula 1 08/08/23 03:09 36.4 C L 96 H 18 100/48 L 96 Nasal Cannula 1 08/07/23 23:11 36.3 C L 99 H 24 154/90 H 96 Room Air
--- NOTE | 2023-08-08 09:28 | Electrocardiogram Report ---
Test Reason : Blood Pressure : / mmHG Vent. Rate : 093 BPM Atrial Rate : 093 BPM P-R Int : 132 ms QRS Dur : 066 ms QT Int : 378 ms P-R-T Axes : 085 018 033 degrees QTc Int : 469 ms Sinus rhythm Low voltage QRS Abnormal ECG When compared with ECG of 15-MAY-2023 16:37, Nonspecific T wave abnormality no longer evident in Anterior leads Confirmed by Shiv Olivarez ([id number]) on 08/08/2023 9:27:30 AM Referred By: REFERRED SELF Confirmed By:Kendell Olivarez
[2023-08-08] MEDS: MONTELUKAST SODIUM 10 MG TABLET PO SCH (10:06)
[2023-08-08] MEDS: FERROUS SULFATE 325 MG TAB PO SCH (10:06)
[2023-08-08] MEDS: SACCHAROMYCES BOULARDII 250 MG CAP PO SCH (10:06)
--- NOTE | 2023-08-08 10:16 | Nephrology Consultation ---
Date of Consultation August 08, 2023 Assessment & Plan (1) DOLORES (acute kidney injury): She has massive anasarca. However she is actively dying and unlikely to survive more than few hrs to few days. if condition miraculously improves can use lasix drip at 10 mg/hr. Also use 25% albumin, Midodrine 10 tid. Comfort care (2) Encephalopathy: (3) Liver cirrhosis secondary to DARIAN: History of Present Illness Attending Physician: Annmarie Nascimento MD History of Present Illness History of Present Illness 73/F with CHF, HTN, COPD, asthma, NAFLD cirrhosis, DM II, hyponatremia, hx of L breast ca s/p surgery and XRT was brought in by family last night for confusion and slurred speech. Pt is obtunded and agonal breathing and actively dying. ROS--unable to obtain Physical Exam Constitutional: + ill appearing and + agonal breathing. Actively Dying Respiratory: Increased work of breathing, coarse rales bilateral lobes Cardiovascular: RRR, no murmur, + anasarca Gastrointestinal (Abdomen): normal bowel sounds, soft, nontender, no hepatosplenomegaly Skin: no rashes, warm and dry no jaundice Psychiatric: obtunded Lymphatic: +Anasarca Exam: Allergies Allergy/AdvReac Type Severity Reaction Status Date / Time albuterol Allergy Severe HIVES, Verified 08/07/23 19:20 DIFFICULTY WALKING, SHAKINESS, STUTTERING azithromycin Allergy Severe SHORT OF Verified 08/07/23 19:20 BREATH, PALPITATIONS tramadol Allergy Severe SEE COMMENT Verified 08/07/23 19:20 ibuprofen Allergy Intermediate Hives Verified 08/07/23 19:20 cephalexin AdvReac Severe "HEART Verified 08/07/23 19:20 PALPATIONS" Opioids - Morphine Analogues AdvReac Severe "opiates Verified 08/07/23 19:20 cause decreased respirations" Opioids-Meperidine and AdvReac Severe "opiates Verified 08/07/23 19:20 Related cause decreased respirations" Opioids-Methadone and Related AdvReac Severe "opiates Verified 08/07/23 19:20 cause decreased respirations" morphine AdvReac Unknown PT STATES Verified 08/07/23 19:20 "BUILT UP A TOLERANCE TO MED, DOESN'T WORK". Home Medications Medication Instructions Recorded Confirmed Type calcium carbonate 600 mg-vitamin 1 cap PO BID 02/11/18 08/07/23 History D3 10 mcg (400 unit) capsule latanoprost 0.005 % eye drops 1 drp OPB HS 04/11/18 08/07/23 History montelukast 10 mg tablet 10 mg PO QAM 04/11/18 08/07/23 History pantoprazole 40 mg tablet,delayed 40 mg PO DAILYBB 04/11/18 08/07/23 History release levalbuterol tartrate 45 1 puff inhalation Q4H PRN Wheezing 11/11/18 08/07/23 History mcg/actuation aerosol inhaler milk thistle seed extract 175 mg 175 mg PO QAM 01/21/19 08/07/23 History tablet acetaminophen 650 mg 650 mg PO Q8H PRN Pain 07/14/20 08/07/23 History tablet,extended release (Tylenol 8 Hour) blood sugar diagnostic ([employer] #50 ea 07/15/20 Rx Verio test strips) lancets 30 gauge (OneTouch Delica #100 ea 07/15/20 Rx Lancets) cyclosporine 0.05 % eye drops in a 1 drp ophthalmic (eye) QAM 12/22/20 08/07/23 History dropperette (Restasis) cinnamon bark 500 mg capsule 1,000 mg PO TID 01/20/22 08/07/23 History (Cinnamon) fluticasone propionate 110 2 puff inhalation AMPM 01/20/22 08/07/23 History mcg/actuation HFA aerosol inhaler garlic 100 mg tablet 1,000 mg PO BID 01/20/22 08/07/23 History guaifenesin 100 mg/5 mL oral 200 mg (10 mL) PO Q6H PRN cough 01/22/22 08/07/23 Rx liquid (Cough Syrup) #473 mL sodium di- and 1 tab PO BID #60 tabs 03/26/23 08/07/23 Rx monophosphate-potassium phos monobasic 250 mg tablet (Phospha Neutral) docusate sodium 100 mg capsule 100 mg PO TID PRN Constipation 05/15/23 08/07/23 History iron,carbonyl 65 mg-vitamin C 125 1 tab PO HS 05/15/23 08/07/23 History mg tablet,delayed release (Vitron-C) levalbuterol HCl 1.25 mg/3 mL 1.25 mg inhalation Q4H PRN Wheezing 05/15/23 08/07/23 History solution for nebulization psyllium husk 6 gram oral powder 6 g PO TID PRN Constipation 05/15/23 08/07/23 History packet ferrous sulfate 325 mg (65 mg 325 mg PO DAILY #30 tabs 06/12/23 08/07/23 Rx iron) tablet lactulose 10 gram/15 mL (15 mL) 30 g (45 mL) PO TID PRN laxative 06/12/23 08/07/23 Rx oral solution effect #1,440 mL magnesium oxide 400 mg (241.3 mg 400 mg PO BID #60 tabs 06/12/23 08/07/23 Rx magnesium) tablet potassium chloride 20 mEq 20 meq PO QAM #30 tabs 06/12/23 08/07/23 Rx tablet,extended release(part/cryst) spironolactone 25 mg tablet 25 mg PO BID #60 tabs 06/12/23 08/07/23 Rx Saccharomyces boulardii 250 mg 250 mg PO DAILY 08/07/23 08/07/23 History capsule (Florastor) denosumab 60 mg/mL subcutaneous 60 mg subcut .[id number] 08/07/23 08/07/23 History syringe (Prolia) torsemide 100 mg tablet 150 mg PO QAM 08/07/23 08/07/23 History Patient History Medical History Encounter for pre-operative examination Paroxysmal atrial tachycardia Abnormal chest x-ray Bronchitis Cirrhosis Incarcerated hernia of abdominal cavity Osteoarthritis Fibromyalgia Cirrhosis of liver not due to alcohol Thyroid goiter just monitoring for now Glaucoma bilt Migraine Sinus arrhythmia Chronic obstructive pulmonary disease Esophageal varices hx of banding Diverticulitis Malignant neoplasm of left breast, stage 1, estrogen receptor positive (09/26/17) "Status post bilateral breast reduction in 1998 Status post abnormal left breast mammogram Status post ultrasound core needle biopsy September 26, 2017 Infiltrating carcinoma, grade 2 Estrogen receptor positive, progesterone receptor positive, 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 Status post needle localization lumpectomy and sentinel lymph node biopsy October 16, 2017 Stage pT1c pN0 M0 Status post completion of radiation therapy January 01, 2018. She received 5130 cGy utilizing hypo-fractionation." On 11/19/17 11:17 Blossom Barajas Brandt wrote "Status post bilateral breast reduction in 1998 Status post abnormal left breast mammogram Status post ultrasound core needle biopsy September 26, 2017 Infiltrating carcinoma, grade 2 Estrogen receptor positive, progesterone receptor positive, 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 Status post needle localization lumpectomy and sentinel lymph node biopsy October 16, 2017 Stage pT1c pN0 M0 Status post completion of radiation therapy January 01, 2018. She received 5130 centigrade utilizing hypo-fractionation. Rectal vaginal fistula Asthma HTN (hypertension) CAD (coronary artery disease) Surgical History Status post left foot surgery planter fascitis Status post trigger finger release right thumb History of surgical removal of ganglion cyst right wrist History of repair of rectocele History of incisional hernia repair x8 History of ileostomy 1998 History of closure of ileostomy 1998---1 month after created History of bilateral salpingo-oophorectomy (BSO) History of colonoscopy History of appendectomy History of esophagogastroduodenoscopy (EGD) History of needle biopsy left breast---malignant History of lumpectomy of left breast with lymph node removal History of tonsillectomy and adenoidectomy Status post correction of deviated nasal septum History of ear surgery right ear "doctor broke my ear drum to drain the fluid" History of bilateral cataract extraction History of total right knee replacement x2 H/O arthroscopy of right knee History of cholecystectomy History of colostomy reversal 1997--8 weeks after colectomy History of partial colectomy 1997--diverticuli pocket ruptured @ [facility] H/O bilateral breast reduction surgery H/O: hysterectomy H/O tooth extraction all teeth removed Family History Sister Family history of diabetes mellitus Grandfather (Paternal) Family history of diabetes mellitus Family hx of colon cancer Grandfather (Maternal) Family history of diabetes mellitus Family/Other Family history of diabetes mellitus 2 cousins Other No family history of adverse response to anesthesia Social History Smoking Status: Never smoker Second Hand Exposure: No; Do You Dip or Chew Tobacco: No; Hx Alcohol Use: No Hx Substance Use: No Preferred Language: Andor[place] Communication Ability: Effective 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 Beliefs That Will Affect Care: None marital status: Current Living Situation: Spouse Current Living Situation Comment: From home with current occupational status: retired How many Children do You have: 1 Other Information That Helps Us Care for You: No Feels Safe at Home: Yes Assistive Devices: Denture - Upper, Denture - Lower and Glasses Results & Data Vital Signs (Past 12 Hours) Vital Signs Temp Pulse Resp BP Pulse Ox O2 Del Method O2 Flow Rate 08/08/23 07:21 36.3 C L 101 H 18 93/51 L 93 Nasal Cannula 1 08/08/23 06:30 Nasal Cannula 1 08/08/23 03:34 Nasal Cannula 1 08/08/23 03:09 36.4 C L 96 H 18 100/48 L 96 Nasal Cannula 1 08/07/23 23:11 36.3 C L 99 H 24 154/90 H 96 Room Air
[2023-08-08] MEDS ORDERED: FUROSEMIDE 100 MG in 0.9 % SODIUM CHLORIDE 90 ML IV SCH (10:30)
[2023-08-08] MEDS: HYDROmorphone INJ 0.5 MG/0.5 ML SYR IV STA (11:15)
[2023-08-08] MEDS: ALBUMIN 25% 25 GM/100 ML VIAL IV SCH (11:16)
[2023-08-08] MEDS: MIDODRINE HCL 10 MG TAB PO SCH (11:18)
[2023-08-08] MEDS ORDERED: ONDANSETRON INJ 2 MG/ML 2 ML VIAL IV PRN (12:24)
[2023-08-08] MEDS ORDERED: LORazepam 0.5 MG TAB PO PRN (12:24)
[2023-08-08] MEDS ORDERED: ONDANSETRON 4 MG OD TAB SL PRN (12:24)
--- NOTE | 2023-08-08 12:28 | Hospitalist Progress Note ---
Date of Service August 08, 2023 Assessment & Plan (1) Comfort measures only status: (2) Encephalopathy: Plan: (3) Liver cirrhosis secondary to ADRIAN: (4) Acute diastolic (congestive) heart failure: (5) History of esophageal varices: (6) DOLORES (acute kidney injury): (7) Hyponatremia: Plan Comfort Measures Only: Pt was seen laying in bed gasping, NG tube in nares. Gasping. Pt is known to the GI service. Discussion with GI that comfort measures should be employed as pt appears to be worsened considerably with volume overload that did not appear reversible this time. Discussion with nephrology as well, notes anticipates pt passing in few hours to days. Called pt's in the AM. He advised further discussion with his son David who he considers her POA. Discussion with David who notes that he is not legal POA but typically relays medical information to his dad and lets him make the decisions after they discuss further. David updated on mother's course, and specialist recommendations of comfort care. He stated that he would discuss it further with his father and would advise of their decision. Later notified by nursing that pt's was at bedside. On arrival at bedside, further discussion with pt's . He stated he was going through pictures of his in his phone, showing pictures of their dog. Stated that he would like to make her comfortable. Discussion with David (pt's son) on the phone as well, indicated that they wished to make her comfortable. agreeable to removing NG tube, no antibiotics and no diuresis. Notes she has morphine allergy. Pt was made comfort measures on 08/08/23 per family's request after further discussion. Discontinued antibiotics, diuresis, NG tube. No further blood draws. PRN Dilaudid and Ativan. Other comfort measures as ordered. declines pastoral visit. Pt was previously treated for the following per previous provider with addendum: Hepatic encephalopathy History NAFLD cirrhosis Patient unable to comply with PCP lactulose recommendations from last month due to functional disability/home situation (patient does not seem like he is able to care for patient given her multiple medical issues) Possibly precipitated by CAP possible aspiration, possible sepsis hx chronic diastolic heart failure (EF 70%, TTE 2022), equivocal volume status as patient seems intravascularly dry albeit third spacing from NAFLD cirrhosis Acute on chronic hyponatremia secondary illness Troponin elevation secondary illness HTN, BP on the lower side COPD/bronchial asthma as per records, some wheezing noted on exam DM2 diet-controlled, well-controlled as of outpatient hemoglobin A1c of 5.2 last March 2023 Left breast cancer status post surgery/radiation chronic anemia, hemoglobin at baseline chronic thrombocytopenia secondary to liver disease PCU given troponin elevation Facilitate lactulose GI consult re: hepatic encephalopathy CS, Doxycycline and Unasyn Aspiration precautions, WALLPAPER INSPECTOR eval Follow troponin Nephrology consult Re: Hyponatremia, ARF IV albumin, hold home diuretic until patient seen by Nephrology ISS BG goal 1 10-1 40, carb count coverage, update hemoglobin A1c PT OT eval once medically stable. DVT prophylaxis. SCDs Re: Thrombocytopenia DNR Patient (Mr. Liang Knapp) updated of patient issues over the phone. He requests updates from providers through [id number]. Admission and Anticipated Discharge Date Admission Date: August 07, 2023 Subjective Pt was seen laying in bed gasping, NG tube in nares. Gasping. Discussion with GI that comfort measures should be employed as pt appears to be worsened considerably with volume overload that did not appear reversible this time. Discussion with nephrology as well, notes anticipates pt passing in few hours to days. Called pt's in the AM. He advised further discussion with his son David who he considers her POA. Discussion with David who notes that he is not legal POA but typically relays medical information to his dad and lets him make the decisions after they discuss further. David updated on mother's course, and specialist recommendations of comfort care. He stated that he would discuss it further with his father and would advise of their decision. Later notified by nursing that pt's was at bedside. On arrival at bedside, further discussion with pt's . He stated he was going through pictures of his in his phone, showing pictures of their dog. Stated that he would like to make her comfortable. Discussion with David (pt's son) on the phone as well, indicated that they wished to make her comfortable. agreeable to removing NG tube, no antibiotics and no diuresis. Notes she has morphine allergy. Review of Systems Review of Systems: All systems reviewed & are unremarkable except as noted in Subjective Physical Exam Physical Exam: General: gasping, unresponsive Skin: bruises on skin noted Psych: mood and affect could not be determined Neuro: unresponsive to verbal stimuli or sternal rub HEENT: NC/AT, NG tube in nares CV: RRR Resp: Breath sounds rhonchorus bilaterally, increased effort of breathing. Abdomen:distended Extremities: edema in extremities bilaterally. Results & Data Results & Data Vital Signs (Past 12 Hours) Vital Signs Temp Pulse Pulse Resp BP Pulse Ox O2 Del Method 08/08/23 11:00 95 H 08/08/23 10:54 36.4 C L 106 H 19 125/69 91 Nasal Cannula 08/08/23 07:21 36.3 C L 101 H 18 93/51 L 93 Nasal Cannula 08/08/23 06:30 Nasal Cannula 08/08/23 03:34 Nasal Cannula 08/08/23 03:09 36.4 C L 96 H 18 100/48 L 96 Nasal Cannula O2 Flow Rate 08/08/23 11:00 08/08/23 10:54 1 08/08/23 07:21 1 08/08/23 06:30 1 08/08/23 03:34 1 08/08/23 03:09 1
--- OUTSIDE RECORDS SUMMARY | 2023-08-08 12:40 | External Medical Summary | Summary of Care ---
Author Name Unknown Organization [facility] Address [address] [place] [address] Phone [phone] Care Team Providers Care Development Scientist Name Role Phone Mark Caal MD Primary Care Provider [phone]- [phone] Encounter Details Date Type Department Care Team (Late st Contact Info) Description 07/15/2023 Telephone [facility] [address] [place] [address] Arjun Morrison MD [address] [place] [address] Allergies Active Allergy Reactions Criticality [...] as of this encounter (statuses as of 07/15/2023) Medications Medication Sig Dispensed Refills Start Date [...] every 8 hours as needed. 0 Active Cinnamon 500 MG [...] and 1 Tablet before bedtime. 0 Active Torsemide 100 MG Oral Tablet (Demadex) Take 1.5 Tablets by mouth in the morning. 90 Tablet 3 04/25/2023 Active Spironolactone 25 MG Oral Tablet (Aldactone) Take 1 Tablet by mouth in the morning and 1 Tablet before bedtime. 0 Active Ferrous Sulfate 325 (65 Fe) MG Oral Tablet (Feosol) Take 1 Tablet by mouth daily with breakfast. 0 Active Potassium Chloride ER 20 MEQ Oral Tablet Extended Release Take 1 Tablet by mouth in the morning. 0 Active Magnesium 400 MG Oral Capsule Take 1 Capsule by mouth in the morning and 1 Capsule before bedtime. 0 Active Lactulose 10 GM/15ML Oral Solution (Constulose) Take 45 mL by mouth 3 times a day as needed for Other (Take three times a day as needed for a goal of 3-5 bowel movements a day). 0 Active Iron-Vitamin C 65-125 MG Oral Tablet (Vitron C)Indications:Anemia due to chronic blood loss Take 1 Tablet by mouth at bedtime. 90 Tablet 3 06/28/2023 Active Hospital, Clinic, or Other Facility Administered Medication Ordered Dose Route Frequency Start Date End Date Status Denosumab (Prolia) subcut inj 60 mgIndications:Senile osteoporosis 60 mg SC [id number] 07/16/2023 07/10/2024 Active documented as of this encounter (statuses as of 07/15/2023) Active Problems Problem Noted Date Diagnosed Date Acute diastolic congestive heart failure 024 Open-angle glaucoma 06/28/2023 Hypertensive heart disease with HF (heart failur e) 05/15/2023 Primary open-angle glaucoma, bilateral, mild sta ge 03/11/2023 COPD, group B, by GOLD 2017 classification 07/30 Overview: Per COPD GOLD Classification Anemia due to chronic blood loss 07/26/2022 Secondary esophageal varices without bleeding Hyperlipidemia 04/18/2021 Prediabetes 11/28/2020 Overview: Per Prediabetes protocol Post-operative state 09/09/2020 S/P lumbar laminectomy 09/09/2020 [...] as of this encounter (statuses as of 07/15/2023) Resolved Problems Problem Noted Date Diagnosed Date Resolved Date Heart failure 03/11/2023 06/28/2023 Type II diabetes mellitus wi th peripheral circulatory disorder 07/23/2022 06/28/2023 Sacroiliitis 04/18/2021 07/23/2022 Chronic obstructive pulmonary disease 04/18/2021 08/01/2022 Overview: Per COPD GOLD Classification Morbid (severe) obesity due to excess calories 04/18/2021 10/19/2021 Type 2 diabetes mellitus without complication 04/18/20 21 06/28/2023 Primary open-angle glaucoma, bilateral, mild stage 07/06/2019 [...] as of this encounter (statuses as of 07/15/2023) Immunizations Name Administration Dates Next Due COVID-19 [...] Packs/Day Years Used Date Smoking Tobacco: Never Passive Smoke Exposure: Current Smokeless Tobacco: Never Alcohol Use Standard Drinks/Week [...] encounter Miscellaneous Notes * Telephone Encounter - Laurel Michel CCMA - 07/15/2023 2:23 PM EST Called pt. she is not available * Telephone Encounter - Arjun Morrison MD - 07/15/2023 8:29 AM EST Blood tests showed low sodium ,still elevated ammonia level and anemia ( s/p transfusion) Will need to repeat check some blood tests Pt already has iron level blood tests But will add ammonia and sodium level Please get blood test in 1-2 wks And make sure that she should take lactulose 45 mL 3 times per day too documented in this encounter Plan of Treatment Upcoming Encounters Date Type Department Care Team (Late st Contact Info) Description 07/16/2023 2:30 PM EST Office Visit Rheumatology [facility] [address] [facility] [place], [place] [address] Bishop Quinones CRNP [address] [facility] [place] [address] 09/17/2023 2:40 PM EDT Office Visit [facility] [address] [facility] [place] [phone] Mark Caal MD [address] [place] [address] 09/24/2023 2:00 PM EDT Laboratory Laboratory, [facility] [address] [facility] [place] [phone] Karen Olivo [facility] [address] [facility] [place] [address] 10/01/2023 2:00 PM EDT Office Visit Hematology/Oncology Nalini Neff [place] [address] [facility] [place], [place] [address] Della Zhong CRNP [address] [place] [address] Scheduled Orders Name Type Priority Associated Diagnoses Orde r Schedule COMPREHENSIVE METABOLIC PANEL Lab Routine Cirrhosis of liver with ascites, unspecified hepatic cirrhosis type (HCC) Expected: 07/15/2023 (Approximate), Expires: 07/14/2024 AMMONIA Lab Routine Cirrhosis of liver with ascites, unspecified hepatic cirrhosis type (HCC) Expected: 07/15/2023, Expires: 07/15/2024 Scheduled Procedures Name Priority Associated Diagnoses Date/Ti me ESOPHAGOGASTRODUODENOSCOPY ( EGD), FLEXIBLE, TRANSORAL, DIAGNOSTIC Recall Esophageal varices (HCC) COLONOSCOPY FLEXIBLE PROXIMAL DIAGNOSTIC Recall History of colon polyps Health Maintenance Due Date Last Done Comments Alpha-1 Antitrypsin 02/05/1970 Hepatitis B (1 of 3 - Risk 3-dose series) 2012 Zoster Vaccines (2 of 3) 12/27/2013 11/01/2013 Depression Screening 07/24/2023 07/23/2022, 08/06/19 15 O2 ASSESSMENT COMPLETED IN PAST YEAR FOR COPD 09/08/2023 09/07/2022 DTaP,Tdap,and Td Vaccines (3 - Td or Tdap) 10/30/2023 10/29/2013, 07/26/2003, 04/19/2003 Mammogram 11/29/2023 11/28/2022, 11/17, 11/27/2021, Additional history exists DXA Scan 12/06/2023 12/05/2021, 11/17, 11/24/2019, Additional history exists HbA1c 03/21/2024 03/21/2023, 03/0 10/2022, 01/29/2022, Additional history exists GFR 06/28/2024 06/28/2023, 04/19, 04/22/2023, Additional history exists COLONOSCOPY-EVERY 3 YRS AGES 18-100 07/25/2024 07/25/2021, 07/25/2021, 08/25/2019, Additional history exists Albumin/Creatinine Ratio 03/19/2026 023, 03/14/2023, 10/19/2021 Lipid Panel 01/29/2027 01/29/2022, 10/18, 09/20/2008, Additional history exists Hepatitis C Screening Completed 04/08/2018 Pneumococcal Vaccine: 65+ Years Completed 11/21/2018, 06/07/2017, 09/18/2011 Colonoscopy Discontinued 07/25/2021, 12/2021, 08/18/2018, Additional history exists Colorectal Cancer Screening Discontinued VITAMIN D LEVEL ONCE IN A LIFETIME-USE SMARTSET# [id number] Completed 08/30/2022, 11/26/2019, 12/28/2013 Diabetic Eye Exam Discontinued 10/22/2022, , 05/28/2022, Additional history exists Influenza Vaccine (FLU shot) Completed 04/02/2023, 04/02/2023, 04/02/2022, Additional history exists COVID-19 Vaccine Completed 04/15/2023, 12/2020, 08/16/2020, Additional history exists Cologuard Discontinued Fecal Occult Blood Test Discontinued GARDASIL-HPV IMMUNIZATION SERIES Aged Out No longer eligible based on patient's age to complete this topic MENINGOCOCCAL (MENACTRA/MENVEO) Aged Out No longer eligible based on patient's age to complete this topic Sigmoidoscopy Discontinued documented as of this encounter Medical Devices Implanted Type Area Major Donor Coordinator Device Identifier Shelf Expiration Date Model / Serial / Lot Cement Bone G 1113-140-01 - [id number] Implanted:Qty: 2 on 09/15/2009 at [place] [facility] [place] Right: Knee [employer] 00-1113-14 0- / / [id number] Femur Porous Lcck - [id number] Implanted:Qty: 1 on 09/15/2009 at OR [facility] [place] Right: Knee [employer] 05/20/2019-5994-01 4- / / [id number] Stem Extension 5988-02-28 - [id number] Implanted:Qty: 1 on 09/15/2009 at OR [facility] [place] Right: Knee [employer] 07/19/2019-5988-01 0- [id number] Stem Extension 5988-02-29 - [id number] Implanted:Qty: 1 on 09/15/2009 at OR [facility] [place] Right: Knee [employer] 07/19/20195988-01 0- [id number] Plate Tibial Nexgen - [id number] Implanted:Qty: 1 on 09/15/2009 at OR [facility] [place] Right: Knee [employer] 01/18/2019-5980-03 7- [id number] Surface Articular - [id number] Implanted:Qty: 1 on 09/15/2009 at OR [facility] [place] Right: Knee [employer] 04/19/2015-5994-03 0- / [id number] Clip Quick 2.8mm 230cm - [id number] Implanted:Qty: 1 on 07/25/2021 by Lisa Sullivan MD at ENDOSCOPY [facility] Colon [employer] 09/17/2023 HX-UR.A / / 15K Clip Quick 2.8mm 230cm - [id number] Implanted:Qty: 1 on 07/25/2021 by Lisa Sullivan MD at ENDOSCOPY [facility] Colon [employer] 09/17/2023 HX-UR.A / / [id number] documented as of this encounter Visit Diagnoses Diagnosis Cirrhosis of liver with ascites, unspecified hepatic cirrhosis type (HCC)- Primary documented in this encounter Advance Directives Documents on File Type Date Recorded Patient Check Weigher Expl anation Advance Directives and Living Will [...] the patient have Health Care Power of Sider Mechanic? No Care Teams Development Scientist Relationship Specialty Start Date End Date Mark Caal MD [address] [facility] [address] PCP - General Family Medicine 07/21/18 documented as of this encounter
--- OUTSIDE RECORDS SUMMARY | 2023-08-08 12:40 | External Medical Summary | Summary of Care ---
Author Name Unknown Organization [facility] Address [address] [place] [address] Phone [phone] Care Team Providers Care Supervisor Lens Generating Name Role Phone Mark Caal MD Primary Care Provider +1- [phone] Reason for Visit * Reason Onset Date Comments Medication Pre-auth 08/05/2023 Not needed Encounter Details Date Type Department Care Team (Late st Contact Info) Description 08/05/2023 Telephone [facility] [address] [place] [address] Mark Caal MD [address] [place] [address] Medication Pre-auth (Not needed) Allergies Active Allergy Reactions Criticality Noted Date [...] as of this encounter (statuses as of 08/05/2023) Medications Medication Sig Dispensed Refills Start Date [...] before bedtime. 36 g 1 08/13/2022 Active Pantoprazole Sodium 40 MG Oral Tablet [...] at bedtime. 90 Tablet 3 06/28/2023 Active Montelukast Sodium 10 MG Oral Tablet (Singulair) TAKE 1 TABLET BY MOUTH EVERY DAY IN THE MORNING 90 Tablet 2 07/30/2023 Active Hospital, Clinic, or Other Facility Administered Medication Ordered Dose Route Frequency Start Date End Date Status Denosumab (Prolia) subcut inj 60 mgIndications:Senile osteoporosis 60 mg SC [id number] 07/16/2023 07/10/2024 Active documented as of this encounter (statuses as of 08/05/2023) Active Problems Problem Noted Date Diagnosed Date Acute diastolic congestive heart failure 024 Open-angle glaucoma 06/28/2023 Hypertensive heart disease with HF (heart failur e) 05/15/2023 Primary open-angle glaucoma, bilateral, mild sta ge 03/11/2023 COPD, group B, by GOLD 2017 classification 07/30 Overview: Per COPD GOLD Classification Anemia due to chronic blood loss 07/26/2022 Secondary esophageal varices without bleeding 03 /10/2022 Hyperlipidemia 04/18/2021 Prediabetes 11/28/2020 Overview: Per Prediabetes [...] as of this encounter (statuses as of 08/05/2023) Resolved Problems Problem Noted Date Diagnosed Date [...] as of this encounter (statuses as of 08/05/2023) Immunizations Name Administration Dates Next Due COVID-19 [...] encounter Miscellaneous Notes * Telephone Encounter - Ray Scott currency exchange specialist - 08/05/2023 4:04 PM EDT Patients insurance would like to inform the office that no review is needed. Paid claim at the pharmacy from 06/21/2023 for a 90 day supply. It will pay again on 09/06/2023. Thank you, Ray Scott Animal Care Supervisor I [facility]) 08/05/2023,4:04 PM * Telephone Encounter - Pily Roland LPN - 08/05/2023 3:50 PM EDT Prior auth sent through [employer]ME for Montelukast 10 mg tablet. ID is [id number] documented in this encounter Plan of Treatment Upcoming Encounters Date Type Department Care Team (Late st Contact Info) Description 09/17/2023 2:40 PM EDT Office Visit [facility] [address] [place] [phone] Mark Caal MD [address] [place] [address] 09/24/2023 2:00 PM EDT [facility] [address] [facility] [place] [phone] Karen Olivo [address] [facility] [place] [address] 10/01/2023 2:00 PM EDT Office Visit Hematology/Oncology Nalini Neff [place] [address] [facility] [place] [address] Della Zhong CRNP [address] [place] [address] Scheduled Procedures Name Priority [...] D LEVEL ONCE IN A LIFETIME-USE SMARTSET# [id number] Completed 08/30/2022, 11/26/2019, 12/28/2013 Diabetic Eye Exam [...] this encounter Medical Devices Implanted Type Area Aerosol Line Operator Device Identifier Shelf Expiration Date Model / Serial / Lot Cement Bone G 1113-140-01 - [id number] Implanted:Qty: 2 on 09/15/2009 at [place] [facility] [place] Right: Knee [employer] 00-1113-14 0- [id number] Femur Porous Lcck - [id number] Implanted:Qty: 1 on 09/15/2009 at [place] [facility] [place] Right: Knee [employer] 05/20/2019-5994-01 4 / [id number] Stem Extension 5988-02-28 - [id number] Implanted:Qty: 1 on 09/15/2009 at [place] [facility] [place] Right: Knee [employer] 07/19/20195988- 0- / [id number] Stem Extension 5988-02-29 - [id number] Implanted:Qty: 1 on 09/15/2009 at [place] [facility] [place] Right: Knee [employer] 07/19/20195988- 0- / [id number] Plate Tibial [employer] - [id number] Implanted:Qty: 1 on 09/15/2009 at [place] [facility] [place] Right: Knee [employer] 01/18/2019 00-5980-03 - [id number] Surface Articular - [id number] Implanted:Qty: 1 on 09/15/2009 at [place] [facility] [place] Right: Knee [employer] 04/19/2015 00-5994-03 0-20 / / [id number] Clip Quick 2.8mm 230cm - [id number] Implanted:Qty: 1 on 07/25/2021 by Lisa Sullivan MD at ENDOSCOPY [facility] Colon [employer] 09/17/2023 HX-UR.A / / 15K Clip Quick 2.8mm 230cm - [id number] Implanted:Qty: 1 on 07/25/2021 by Lisa Sullivan MD at ENDOSCOPY [facility] Colon [employer] 09/17/2023 HX-UR.A / / 15K documented as of this encounter Advance Directives Documents on File Type Date Recorded Patient Lawyer Probate Expl anation Advance Directives and Living Will [...] the patient have Health Care Power of Decision Support Analyst? No Care Teams Supervisor Lens Generating Relationship Specialty Start Date End Date Mark Caal MD [address] [place] [address] PCP - General Family Medicine 07/21/18 documented as of this encounter
--- OUTSIDE RECORDS SUMMARY | 2023-08-08 12:40 | External Medical Summary | Summary of Care ---
Author Name Unknown Organization [facility] Address [address] [place] [address] Phone [phone] Care Team Providers Care Economist Research Assistant Name Role Phone Lila Ness MD Primary Care Provider +1- [phone] Reason for Visit * Reason Comments eRx-Medication Refill Encounter Details Date Type Department Care Team (Late st Contact Info) Description 07/29/2023 Refill [facility] [address] [place] [address] Lila Ness MD [address] [place] [address] Allergies Active Allergy Reactions Criticality [...] as of this encounter (statuses as of 07/30/2023) Medications Medication Sig Dispensed Refills Start Date [...] Iron-Vitamin C 65-125 MG Oral Tablet (Vitron C)Indications:Ane aroldo due to chronic blood loss Take 1 Tablet by mouth at bedtime. 90 Tablet 3 06/28/2023 Active Montelukast Sodium 10 MG Oral Tablet (Singulair) TAKE 1 TABLET BY MOUTH EVERY DAY IN THE MORNING 90 Tablet 2 07/30/2023 Active Montelukast Sodium 10 MG Oral Tablet (Singulair) TAKE 1 TABLET BY MOUTH EVERY DAY IN THE MORNING 100 Tablet 2 12/05/2022 4 Discontinued Hospital, Clinic, or Other Facility Administered Medication Ordered Dose Route Frequency Start Date End Date Status Denosumab (Prolia) subcut inj 60 mgIndications:Senile osteoporosis 60 mg SC [id number] 07/16/2023 07/10/2024 Active documented as of this encounter (statuses as of 07/30/2023) Active Problems Problem Noted Date Diagnosed Date [...] as of this encounter (statuses as of 07/30/2023) Resolved Problems Problem Noted Date Diagnosed Date [...] as of this encounter (statuses as of 07/30/2023) Immunizations Name Administration Dates Next Due COVID-19 mRNA, LNP-s, No Pre serve, 2-Dose Series (goDog Fetch) 03/27/2021,08/16/2020,07/19/2020 Pneumococcal Conjugate Vacc, 13 Valent (Prevnar) [...] encounter Miscellaneous Notes * Telephone Encounter - Mariana Spencer [facility] - 07/30/2023 4:31 PM EDTSigned Prescriptions: Disp Refills Montelukast Sodium 10 MG Oral Tablet (Sing*90 Tab*2 Sig: TAKE 1TABLET BY MOUTH EVERY DAY IN THE MORNINGAuthorizing Provider: LILA NESS User: MARIANA SPENCER documented in this encounter Plan of Treatment Upcoming Encounters Date Type Department Care Team (Late st Contact Info) Description 09/17/2023 2:40 PM EDT Office Visit [facility] [address] [place] [phone] Lila Ness MD [address] [place] [address] 09/24/2023 2:00 PM EDT Laboratory Laboratory, [facility] 132 [facility] [phone] Karen Olivo 132 [facility] [place] [address] 10/01/2023 2:00 PM EDT Office Visit Hematology/Oncology [facility] Aishwarya Flandreau [address] [facility] [address] Della Zhong CRNP [address] [place], [place] [address], [place] [address] Scheduled Procedures Name Priority Associated Diagnoses Date/Ti [...] 11/24/2019, Additional history exists HbA1c 03/21/2024 03/21/2023, 030 10/2022, 01/29/2022, Additional history exists GFR 06/28/2024 [...] D LEVEL ONCE IN A LIFETIME-USE SMARTSET# [id number] Completed 08/30/2022, 11/26/2019, 12/28/2013 Diabetic Eye Exam [...] this encounter Medical Devices Implanted Type Area Case Finishing Machine Adjuster Device Identifier Shelf Expiration Date Model / Serial / Lot Cement Bone G 1113-140-01 - [id number] Implanted:Qty: 2 on 09/15/2009 at OR [facility] [place] Right: Knee [employer] 00-1113-14 0- / [id number] Femur Porous Lcck - [id number] Implanted:Qty: 1 on 09/15/2009 at OR [facility] [place] Right: Knee [employer] 05/20/2019-5994-01 4- / [id number] Stem Extension 5988-02-28 - [id number] Implanted:Qty: 1 on 09/15/2009 at OR [facility] [place] Right: Knee [employer] 07/19/2019-5988-01 0- / [id number] Stem Extension 5988-02-29 - [id number] Implanted:Qty: 1 on 09/15/2009 at OR [facility] [place] Right: Knee [employer] 07/19/2019-5988- 0- / [id number] Plate Tibial Nexgen - [id number] Implanted:Qty: 1 on 09/15/2009 at OR [facility] [place] Right: Knee [employer] 01/18/2019-5980-03 7- / / [id number] Surface Articular - [id number] Implanted:Qty: 1 on 09/15/2009 at OR [facility] [place] Right: Knee [employer] 04/19/2015 00-5994-03 0-20 / / [id number] Clip Quick 2.8mm 230cm - [id number] Implanted:Qty: 1 on 07/25/2021 by Lisa Sullivan MD at ENDOSCOPY [facility] [employer] 09/17/2023 HX-202UR.A / / 15K Clip Quick 2.8mm 230cm - [id number] Implanted:Qty: 1 on 07/25/2021 by Lisa Sullivan MD at ENDOSCOPY [facility] [employer] 09/17/2023 HX-UR.A / / 15K documented as of this encounter Advance Directives Documents on File Type Date Recorded Patient Snow Removal/Plowing Expl anation Advance Directives and Living Will [...] the patient have Health Care Power of Coin Teller? No Care Teams Economist Research Assistant Relationship Specialty Start Date End Date Lila Ness MD [address] [place] [facility] [place] [address] PCP - General Family Medicine 07/21/18 documented as of this encounter
--- OUTSIDE RECORDS SUMMARY | 2023-08-08 12:40 | External Medical Summary | Summary of Care ---
Author Name Unknown Organization [facility] Address [address] [place] [address] Phone [phone] Care Team Providers Care Ultrasonic Welding Machine Operator Name Role Phone Mark Caal MD Primary Care Provider +1- [phone] Encounter Details Date Type Department Care Team (Late st Contact Info) Description 07/15/2023 Telephone [facility] [address] [place] [address] Arjun Morrison MD [address] [place] [address] Allergies Active Allergy Reactions Criticality [...] as of this encounter (statuses as of 07/24/2023) Medications Medication Sig Dispensed Refills Start Date [...] inj 60 mgIndications:Senile osteoporosis 60 mg SC [id number] 07/16/2023 07/10/2024 Active documented as of this encounter (statuses as of 07/24/2023) Active Problems Problem Noted Date Diagnosed Date [...] as of this encounter (statuses as of 07/24/2023) Resolved Problems Problem Noted Date Diagnosed Date [...] as of this encounter (statuses as of 07/24/2023) Immunizations Name Administration Dates Next Due COVID-19 [...] Telephone Encounter - Blanche Matta LPN - 07/24/2023 2:08 PM EST Attempted to call pt. Smart call lionel. Not accepting my call. Please try again later * Telephone Encounter - Laurel Michel CCMA [...] Description 09/17/2023 2:40 PM EDT Office Visit [facility] [address] [place] [phone] Mark Caal MD [address] [place] [facility] [facility] [place] [address] 09/24/2023 2:00 PM EDT [facility] 132 [facility] [place] [phone] Karen Olivo [address] [place] [address] 10/01/2023 2:00 PM EDT Office Visit Hematology/Oncology [facility] [place] 200 [facility] [place], [place] [address] Della Zhong CRNP [address] [place] [address] Scheduled Orders Name Type Priority Associated Diagnoses [...] D LEVEL ONCE IN A LIFETIME-USE SMARTSET# [id number] Completed 08/30/2022, 11/26/2019, 12/28/2013 Diabetic Eye Exam [...] this encounter Medical Devices Implanted Type Area Chemical Librarian Device Identifier Shelf Expiration Date Model / Serial / Lot Cement Bone G 1113-140-01 - [id number] Implanted:Qty: 2 on 09/15/2009 at OR [facility] [place] Right: Knee [employer] 00-1113-14 0- / / [id number] Femur Porous Lcck - [id number] Implanted:Qty: 1 on 09/15/2009 at OR [facility] [place] Right: Knee [employer] 05/20/2019-5994-01 4- / / [id number] Stem Extension 5988-02-28 - [id number] Implanted:Qty: 1 on 09/15/2009 at OR [facility] [place] Right: Knee [employer] 07/19/2019-5988-01 0- [id number] Stem Extension 5988-02-29 - [id number] Implanted:Qty: 1 on 09/15/2009 at OR [facility] [place] Right: Knee [employer] 07/19/20195988-01 0- [id number] Plate Tibial Nexgen - [id number] Implanted:Qty: 1 on 09/15/2009 at OR [facility] Right: Knee [employer] 01/18/2019-5980-03 7- [id number] Surface Articular - [id number] Implanted:Qty: 1 on 09/15/2009 at OR [facility] Right: Knee [employer] 04/19/2015-5994-03 0- / [id number] Clip Quick 2.8mm 230cm - [id number] Implanted:Qty: 1 on 07/25/2021 by Lias Sullivan MD at ENDOSCOPY [facility] [employer] 09/17/2023 HX-UR.A / / 15K Clip Quick 2.8mm 230cm - [id number] Implanted:Qty: 1 on 07/25/2021 by Lisa Sullivan MD at ENDOSCOPY [facility] Colon [employer] 09/17/2023 HX-UR.A / / 15K documented as of this encounter Visit Diagnoses Diagnosis Cirrhosis of liver with ascites, unspecified hepatic cirrhosis type (HCC)- Primary documented in this encounter Advance Directives Documents on File Type Date Recorded Patient Order Entry Expl anation Advance Directives and Living Will [...] the patient have Health Care Power of Machine Welder? No Care Teams Ultrasonic Welding Machine Operator Relationship Specialty Start Date End Date Mark Caal MD [address] [facility] [place] [address] PCP - General Family Medicine 07/21/18 documented as of this encounter
--- OUTSIDE RECORDS SUMMARY | 2023-08-08 12:40 | External Medical Summary | Summary of Care ---
Author Name Unknown Organization [facility] Address [address] [place] [address] Phone [phone] Care Team Providers Care Director Weights And Measures Name Role Phone Mark Caal MD Primary Care Provider +1- [phone] Encounter Details Date Type Department Care Team (Late st Contact Info) Description 07/15/2023 Telephone [facility] [address] [place] [address] Ajrun Morrison MD [address] [place] [address] Allergies Active Allergy Reactions Criticality [...] inj 60 mgIndications:Senile osteoporosis 60 mg SC [id number] 07/16/2023 07/10/2024 Active documented as of this [...] Telephone Encounter - Padma Jackson LPN - 07/30/2023 4:29 PM EDT Attempted to call patient. Not accepting calls at this time * Telephone Encounter - Blanche Matta LPN - 07/26/2023 12:20 PM EST Attempted to call pt's home number. Smart call lionel. Not accepting my call. Please try again later Left message on pt's mobile number for pt to call back * Telephone Encounter - Blanche Matta LPN [...] Description 09/17/2023 2:40 PM EDT Office Visit [facility] [address] [place] [address] Mark Caal MD [address] [place] [address] 09/24/2023 2:00 PM EDT Laboratory Laboratory, [facility] 132 [facility] [place] [phone] [facility] 132 [facility] [place] [address] 10/01/2023 2:00 PM EDT Office Visit Hematology/Oncology [facility] 200 [facility] [place] [address] Della Zhong CRNP [address] [facility] [place] [address] Scheduled Orders Name Type Priority Associated Diagnoses [...] D LEVEL ONCE IN A LIFETIME-USE SMARTSET# [id number] Completed 08/30/2022, 11/26/2019, 12/28/2013 Diabetic Eye Exam [...] this encounter Medical Devices Implanted Type Area Patternmaker Grader Device Identifier Shelf Expiration Date Model / Serial / Lot Cement Bone G 1113-140-01 - [id number] Implanted:Qty: 2 on 09/15/2009 at OR [facility] [place] Right: Knee [employer] 00-1113-14 0- / / [id number] Femur Porous Lcck - [id number] Implanted:Qty: 1 on 09/15/2009 at OR [facility] [place] Right: Knee [employer] 05/20/2019-5994-01 4- / / [id number] Stem Extension 5988-02-28 - [id number] Implanted:Qty: 1 on 09/15/2009 at OR [facility] [place] Right: Knee [employer] 07/19/20195988-01 0- / [id number] Stem Extension 5988-02-29 - [id number] Implanted:Qty: 1 on 09/15/2009 at OR [facility] [place] Right: Knee [employer] 07/19/20195988-01 0- / [id number] Plate Tibial Nexgen - [id number] Implanted:Qty: 1 on 09/15/2009 at OR [facility] [place] Right: Knee [employer] 01/18/2019-5980-03 7- / [id number] Surface Articular - [id number] Implanted:Qty: 1 on 09/15/2009 at OR [facility] [place] Right: Knee [employer] 04/19/2015-5994-03 0- / [id number] Clip Quick 2.8mm 230cm - [id number] Implanted:Qty: 1 on 07/25/2021 by Lisa Sullivan MD at ENDOSCOPY [facility] [employer] 09/17/2023 HX-202UR.A / / 15K Clip Quick 2.8mm 230cm - [id number] Implanted:Qty: 1 on 07/25/2021 by Lisa Sullivan MD at ENDOSCOPY [facility] [employer] 09/17/2023 HX-202UR.A / / 15K documented as of this encounter Visit Diagnoses Diagnosis Cirrhosis of liver with ascites, unspecified hepatic cirrhosis type (HCC)- Primary documented in this encounter Advance Directives Documents on File Type Date Recorded Patient Blocker And Polisher Expl anation Advance Directives and Living Will [...] the patient have Health Care Power of Cemetery Manager? No Care Teams Director Weights And Measures Relationship Specialty Start Date End Date Mark Caal MD [address] [place] [address] PCP - General Family Medicine 07/21/18 documented as of this encounter
--- OUTSIDE RECORDS SUMMARY | 2023-08-08 12:40 | External Medical Summary | Summary of Care ---
Author Name Unknown Organization [facility] Address [address] [place] [address] Phone [phone] Care Team Providers Care Laboratory Animal Facility Supervisor Name Role Phone Mark Caal MD Primary Care Provider +1- [phone] Encounter Details Date Type Department Care Team (Late st Contact Info) Description 07/15/2023 Telephone [facility] [address] [place] [address] Arjun Morrison MD [address] [place] [address] Allergies Active Allergy Reactions Criticality [...] inj 60 mgIndications:Senile osteoporosis 60 mg SC [id number] 07/16/2023 07/10/2024 Active documented as of this [...] 07/16/2023 2:30 PM EST Office Visit Rheumatology [address] [place] [address] Bishop Quinones CRNP [address] [facility] [place] [address] 09/17/2023 2:40 PM EDT Office Visit [facility] [address] [place] [address] Mark Caal MD [address] [place] [address] 09/24/2023 2:00 PM EDT Laboratory Laboratory, [facility] [phone] [facility] [address] [facility] [place] [address] 10/01/2023 2:00 PM EDT Office Visit Hematology/Oncology [facility] 200 [facility] [place] [phone] Della Zhong CRNP [address] [place] [phone] Scheduled Orders Name Type Priority Associated Diagnoses [...] D LEVEL ONCE IN A LIFETIME-USE SMARTSET# [id number] Completed 08/30/2022, 11/26/2019, 12/28/2013 Diabetic Eye Exam [...] this encounter Medical Devices Implanted Type Area Prepared Foods Associate Device Identifier Shelf Expiration Date Model / Serial / Lot Cement Bone G 1113-140-01 - [id number] Implanted:Qty: 2 on 09/15/2009 at OR [facility] [place] Right: Knee [employer] 00-1113-14 0- [id number] Femur Porous Lcck - [id number] Implanted:Qty: 1 on 09/15/2009 at OR [facility] [place] Right: Knee [employer] 05/20/2019-5994-01 / [id number] Stem Extension 5988-02-28 - [id number] Implanted:Qty: 1 on 09/15/2009 at OR [facility] [place] Right: Knee [employer] 07/19/2019-5988-01 0- [id number] Stem Extension 5988-02-29 - [id number] Implanted:Qty: 1 on 09/15/2009 at OR [facility] [place] Right: Knee [employer] 07/19/2019-5988-01 0- [id number] Plate Tibial Nexgen - [id number] Implanted:Qty: 1 on 09/15/2009 at OR [facility] [place] Right: Knee [employer] 01/18/2019 00-5980-03 - [id number] Surface Articular - [id number] Implanted:Qty: 1 on 09/15/2009 at OR [facility] [place] Right: Knee [employer] 04/19/2015-5994-03 0-20 / [id number] Clip Quick 2.8mm 230cm - [id number] Implanted:Qty: 1 on 07/25/2021 by Lisa Sullivan MD at ENDOSCOPY [facility] Colon [employer] 09/17/2023 HX-202UR.A / / 15K Clip Quick 2.8mm 230cm - [id number] Implanted:Qty: 1 on 07/25/2021 by Lisa Sullivan MD at ENDOSCOPY [facility] Colon [employer] 09/17/2023 HX-202UR.A / / 15K documented as of this encounter Visit Diagnoses Diagnosis Cirrhosis of liver with ascites, unspecified hepatic cirrhosis type (HCC)- Primary documented in this encounter Advance Directives Documents on File Type Date Recorded Patient Broadcast Transmitter Operator Expl anation Advance Directives and Living [...] the patient have Health Care Power of System Auditor? No Care Teams Laboratory Animal Facility Supervisor Relationship Specialty Start Date End Date Mark Caal MD [address] [place] [address] PCP - General Family Medicine 07/21/18 documented as of this encounter
--- OUTSIDE RECORDS SUMMARY | 2023-08-08 12:40 | External Medical Summary | Summary of Care ---
Author Name Unknown Organization [facility] Address [address] [place] [address] Phone [phone] Care Team Providers Care Produce Team Lead Name Role Phone Mark Caal MD Primary Care Provider +1- [phone] Encounter Details Date Type Department Care Team (Late st Contact Info) Description 07/15/2023 Telephone [facility] [address] [place] [address] Arjun Morrison MD [address] [place] [address] Allergies Active Allergy Reactions Criticality [...] as of this encounter (statuses as of 07/26/2023) Medications Medication Sig Dispensed Refills Start Date [...] inj 60 mgIndications:Senile osteoporosis 60 mg SC [id number] 07/16/2023 07/10/2024 Active documented as of this encounter (statuses as of 07/26/2023) Active Problems Problem Noted Date Diagnosed Date [...] as of this encounter (statuses as of 07/26/2023) Resolved Problems Problem Noted Date Diagnosed Date [...] as of this encounter (statuses as of 07/26/2023) Immunizations Name Administration Dates Next Due COVID-19 [...] Description 09/17/2023 2:40 PM EDT Office Visit [facility] [address] [facility] [phone] Mark Caal MD [address] [facility] [address] 09/24/2023 2:00 PM EDT Laboratory Laboratory, [facility] [address] [facility] [place] [phone] Karen Olivo [address] [place] [address] 10/01/2023 2:00 PM EDT Office Visit Hematology/Oncology [facility] 200 [facility] [address] Della Zhong CRNP [address] [place] [address] Scheduled Orders Name Type [...] D LEVEL ONCE IN A LIFETIME-USE SMARTSET# [id number] Completed 08/30/2022, 11/26/2019, 12/28/2013 Diabetic Eye Exam [...] this encounter Medical Devices Implanted Type Area Fire Engine Operator Device Identifier Shelf Expiration Date Model / Serial / Lot Cement Bone G 1113-140-01 - [id number] Implanted:Qty: 2 on 09/15/2009 at OR [facility] [place] Right: Knee [employer] 00-1113-14 [id number] Femur Porous Lcck - [id number] Implanted:Qty: 1 on 09/15/2009 at OR [facility] [place] Right: Knee [employer] 05/20/20195994-01 4- / / [id number] Stem Extension 5988-02-28 - [id number] Implanted:Qty: 1 on 09/15/2009 at OR [facility] [place] Right: Knee [employer] 07/19/20195988-01 0-11 / / [id number] Stem Extension 5988-02-29 - [id number] Implanted:Qty: 1 on 09/15/2009 at OR [facility] [place] Right: Knee [employer] 07/19/20195988-01 0- / [id number] Plate Tibial Nexgen - [id number] Implanted:Qty: 1 on 09/15/2009 at OR [facility] [place] Right: Knee [employer] 01/18/2019-5980-03 7- / [id number] Surface Articular - [id number] Implanted:Qty: 1 on 09/15/2009 at OR [facility] [place] Right: Knee [employer] 04/19/2015-5994-03 0-20 / / [id number] Clip Quick 2.8mm 230cm - [id number] Implanted:Qty: 1 on 07/25/2021 by Lisa Sullivan MD at ENDOSCOPY [facility] Colon [employer] 09/17/2023 HX-202UR.A / / 15K Clip Quick 2.8mm 230cm - [id number] Implanted:Qty: 1 on 07/25/2021 by Lisa Sullivan MD at ENDOSCOPY [facility] Colon [employer] 09/17/2023 HX-202UR.A / / 15K documented as of this encounter Visit Diagnoses Diagnosis Cirrhosis of liver with ascites, unspecified hepatic cirrhosis type (HCC)- Primary documented in this encounter Advance Directives Documents on File Type Date Recorded Patient Continuity Clerk Expl anation Advance Directives and Living Will [...] the patient have Health Care Power of Fisher Weir? No Care Teams Produce Team Lead Relationship Specialty Start Date End Date Mark Caal MD [address] [place] [address] PCP - General Family Medicine 07/21/18 documented as of this encounter
--- OUTSIDE RECORDS SUMMARY | 2023-08-08 12:41 | External Medical Summary | Summary of Care ---
Author Name Unknown Organization [facility] Address [address] [place] [address] Phone [phone] Care Team Providers Care Industrial Rehabilitation Consultant Name Role Phone Mark Caal MD Primary Care Provider +1- [phone] Reason for Visit * Reason Onset Date Comments Test Results Lab 07/01/2023 Appointment 07/01/2023 Encounter Details Date Type Department Care Team (Late st Contact Info) Description 07/01/2023 Telephone Gastroenterology, [facility] [address] [place] [address] Andres Singh DO [address] [place] [id number] Test Results Lab; Appointment Allergies Active Allergy Reactions Criticality Noted [...] as of this encounter (statuses as of 07/09/2023) Medications Medication Sig Dispensed Refills Start Date [...] at bedtime. 90 Tablet 3 06/28/2023 Active documented as of this encounter (statuses as of 07/09/2023) Active Problems Problem Noted Date Diagnosed Date [...] as of this encounter (statuses as of 07/09/2023) Resolved Problems Problem Noted Date Diagnosed Date Resolved Date Heart failure 03/11/2023 06/28/2023 Type II diabetes mellitus wi th peripheral circulatory disorder 07/23/2022 06/28/2023 Sacroiliitis 04/18/2021 07/23/2022 Chronic obstructive pulmonary disease 04/18/2021 08/01/2022 Overview: Per COPD GOLD Classification Morbid (severe) obesity due to excess calories 04/18/2021 10/19/2021 Type 2 diabetes mellitus without complication 04/18/2006/28/2023 Primary open-angle glaucoma, bilateral, mild stage 07/06/2019 [...] as of this encounter (statuses as of 07/09/2023) Immunizations Name Administration Dates Next Due COVID-19 [...] encounter Miscellaneous Notes * Telephone Encounter - Danni Rene RN - 07/09/2023 1:17 PM EST Left message #3. * Telephone Encounter - Danni Rene RN - 07/02/2023 9:16 AM EST Attempted to call patient again - home number had a call lionel, call wouldn't go through - left message #2 on mobile number requesting a return call * Telephone Encounter - Danni Rene RN - 07/01/2023 1:36 PM EST Per Della: "Patient discharged from [facility] 06/12/23. Admitted for decompensated ADRIAN cirrhosis and possible upperGI bleed. Received 2 units of PRBC. Please reach out to patient to schedule hospital follow up visit. Repeat CBCd, iron screen and ferritin prior. " Attempted to call patient - home number had a call lionel, call wouldn't go through - left message on mobile number requesting a return call Patient had HLA typing for celiac today. * Telephone Encounter - Cami Cooper OSA - 07/01/2023 1:27 PM EST Patient stopped into the office today she stated that she had her lab work drawn today. Stated to patient that we needed to get her a Hospital Discharge follow up with either or Della. Shewas offered an appt with for 07/08/23. Patient started to yell and was very loud and upset stating that she is sick and tired of having to go back and forth for all these appts. She refused the appt and stated that she will not be back for a follow up appt that a provider can call her with the results. FYI-Della Trevin, Dr.Julio Cesar and Nursing * Telephone Encounter - Tracey Bush RN - 07/01/2023 11:04 AM EST Copying what was added to a Nephrology TE and starting Gastro TE Andres Singh, DO 07/01/23 10:34 AM Note Please let the patient know that her recent labs screening for evidence of celiac disease were negative. Given the pathology finding that was highly suggestive of celiac disease I would recommend further assessment with HLA typing. Pending these results we will most likely refer the patient for a gluten free diet. The patient should follow up with Ms. Zhong in our office for further recommendations. Pt notified and will have lab done documented in this encounter Plan of Treatment Upcoming Encounters Date Type Department Care Team (Late st Contact Info) Description 07/16/2023 2:30 PM EST Office Visit Rheumatology [address] [place] [address] Bishop Quinones CRNP [address] [place] [address] [place] [address] 09/17/2023 2:40 PM EDT Office Visit [facility] [address] [place] [address] Mark Caal MD [address] [place] [address] 09/24/2023 2:00 PM EDT Laboratory Laboratory, [facility] [place] [address] [place] [phone] Karen Olivo [address] [facility] [place] [address] 10/01/2023 2:00 PM EDT Office Visit Hematology/Oncology [facility] [place] [address] [place] [address] Della Zhong CRNP [address] [place] [address] Scheduled Procedures Name Priority [...] D LEVEL ONCE IN A LIFETIME-USE SMARTSET# [id number] Completed 08/30/2022, 11/26/2019, 12/28/2013 Diabetic Eye Exam [...] this encounter Medical Devices Implanted Type Area Specialty Person Device Identifier Shelf Expiration Date Model / Serial / Lot Cement Bone G 1113-140-01 - [id number] Implanted:Qty: 2 on 09/15/2009 at [place] [facility] [place] Right: Knee [employer] 00-1113-14 0- [id number] Femur Porous Lcck - [id number] Implanted:Qty: 1 on 09/15/2009 at OR [facility] Right: Knee [employer] 05/20/2019-5994-01 4 / [id number] Stem Extension 5988-02-28 - [id number] Implanted:Qty: 1 on 09/15/2009 at OR [facility] Right: Knee [employer] 07/19/2019-5988-01 0- [id number] Stem Extension 5988-02-29 - [id number] Implanted:Qty: 1 on 09/15/2009 at OR [facility] Right: Knee [employer] 07/19/2019-5988-01 0- [id number] Plate Tibial Nexgen - [id number] Implanted:Qty: 1 on 09/15/2009 at OR [facility] Right: Knee [employer] 01/18/2019-5980-03 11-17 [id number] Surface Articular - [id number] Implanted:Qty: 1 on 09/15/2009 at OR [facility] Right: Knee [employer] 04/19/2015 00-5994-03 0- / [id number] Clip Quick 2.8mm 230cm - [id number] Implanted:Qty: 1 on 07/25/2021 by Lisa Sullivan MD at ENDOSCOPY [facility] Colon [employer] 09/17/2023 HX-UR.A / / 15K Clip Quick 2.8mm 230cm - [id number] Implanted:Qty: 1 on 07/25/2021 by Lisa Sullivan MD at [facility]OSCOPY [facility] Colon [employer] 09/17/2023 HX-UR.A / / [id number] documented as of this encounter Advance Directives Documents on File Type Date Recorded 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 No Care Teams Industrial Rehabilitation Consultant Relationship Specialty Start Date End Date Mark Caal MD [address] [place] [address] PCP - General Family Medicine 07/21/18 documented as of this encounter
--- OUTSIDE RECORDS SUMMARY | 2023-08-08 12:41 | External Medical Summary | Summary of Care ---
Author Name Unknown Organization [facility] Address [address] [place] [address] Phone [phone] Care Team Providers Care Lace Sewer Name Role Phone Mark Caal MD Primary Care Provider +1- [phone] Encounter Details Date Type Department Care Team (Late st Contact Info) Description 07/15/2023 Telephone [facility] [address] [place] [address] Arjun Morrison MD [address] [place] [address] Allergies Active Allergy Reactions Criticality [...] inj 60 mgIndications:Senile osteoporosis 60 mg SC [id number] 07/16/2023 07/10/2024 Active documented as of this [...] 07/16/2023 2:30 PM EST Office Visit Rheumatology [address] [place] [address] Bishop Quinones CRNP [address] [facility] [place] [address] 09/17/2023 2:40 PM EDT Office Visit [facility] [address] [place] [phone] Mark Caal MD [address] [place] [address] 09/24/2023 2:00 PM EDT Laboratory Laboratory, [facility] [address] [facility] [phone] [facility] [address] [facility] [place] [address] 10/01/2023 2:00 PM EDT Office Visit Hematology/Oncology [facility] [address] [facility] [place] [phone] Della Zhong CRNP [address] [place] [phone] Scheduled Orders Name Type Priority Associated Diagnoses [...] D LEVEL ONCE IN A LIFETIME-USE SMARTSET# [id number] Completed 08/30/2022, 11/26/2019, 12/28/2013 Diabetic Eye Exam [...] this encounter Medical Devices Implanted Type Area Administrator Health Care Facility Device Identifier Shelf Expiration Date Model / Serial / Lot Cement Bone G 1113-140-01 - [id number] Implanted:Qty: 2 [place]2009 [place] [facility] [place] Knee [employer] 00-1113-14 0- [id number] Femur Porous Lcck - [id number] Implanted:Qty: 1 on 09/15/2009 [place] [facility] [place]: Knee [employer] 05/20/2019-5994-01 / [id number] Stem Extension 5988-02-28 - [id number] Implanted:Qty: 1 on 09/15/2009 [place] [facility] [place]: Knee [employer] 07/19/2019-5988-01 0- [id number] Stem Extension 5988-02-29 - [id number] Implanted:Qty: 1 on 09/15/2009 [place] [facility] [place]: Knee [employer] 07/19/2019-5988-01 0- [id number] Plate Tibial Nexgen - [id number] Implanted:Qty: 1 on 09/15/2009 [place] [facility] [place]: Knee [employer] 01/18/2019 00-5980-03 - [id number] Surface Articular - [id number] Implanted:Qty: 1 on 09/15/2009 [place] [facility] [place]: Knee [employer] 04/19/2015-5994-03 0-20 / [id number] Clip Quick 2.8mm 230cm - [id number] Implanted:Qty: 1 on 07/25/2021 by Lisa Sullivan MD at ENDOSCOPY [facility] Colon [employer] 09/17/2023 HX-202UR.A / / 15K Clip Quick 2.8mm 230cm - [id number] Implanted:Qty: 1 on 07/25/2021 by Lisa Sullivan MD at ENDOSCOPY [facility] Colon [employer] 09/17/2023 HX-202UR.A / / 15K documented as of this encounter Visit Diagnoses Diagnosis Cirrhosis of liver with ascites, unspecified hepatic cirrhosis type (HCC)- Primary documented in this encounter Advance Directives Documents on File Type Date Recorded 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 No Care Teams Lace Sewer Relationship Specialty Start Date End Date Mark Caal MD [address] [place] [address] PCP - General Family Medicine 07/21/18 documented as of this encounter
--- OUTSIDE RECORDS SUMMARY | 2023-08-08 12:41 | External Medical Summary | Summary of Care ---
Author Name Unknown Organization [facility] Address [address] [facility] [place] [address] Phone [phone] Care Team Providers Care Bilingual Teacher Aide Name Role Phone Mark Caal MD Primary Care Provider +1- [phone] Reason for Referral * Evaluate & Treat - Unlimited Visits (Within 30 days (routine)) - Authorized Specialty Diagnoses / Procedures Referred By Contact Referred To Contact GI NUTRITION/IM / Gastroenterology Diagnoses Celiac disease Andres Singh DO [address] [place] [address] Referral ID Status Reason Start Date Expiration Date Visits Requested Visits Authorized [id number] Authorized Specialty Services Required 07/05/2023 999 999 Question Answer Referral Priority Within 30 days (routine) Where should this appointment be scheduled? [facility] For what condition is the patient being seen? Other Comments Recent diagnosis of celiac disease assist with a gluten free diet. Encounter Details Date Type Department Care Team (Late st Contact Info) Description 07/05/2023 Telephone Gastroenterology, [facility] [address] [place] [address] Andres Singh DO [address] [place] [address] Allergies Active Allergy Reactions Criticality Noted Date [...] as of this encounter (statuses as of 07/12/2023) Medications Medication Sig Dispensed Refills Start Date [...] as of this encounter (statuses as of 07/12/2023) Active Problems Problem Noted Date Diagnosed Date [...] as of this encounter (statuses as of 07/12/2023) Resolved Problems Problem Noted Date Diagnosed Date [...] as of this encounter (statuses as of 07/12/2023) Immunizations Name Administration Dates Next Due COVID-19 mRNA, LNP-s, No Pre serve, 2-Dose Series (Pivot3) 03/27/2021,08/16/2020,07/19/2020 Pneumococcal Conjugate Vacc, 13 Valent (Prevnar) [...] encounter Miscellaneous Notes * Telephone Encounter - Marlee Newman RN - 07/10/2023 1:17 PM EST Noted that pt hasn't read her [employer] message from 5 days ago. [facility] Head Stock Operator answered and said she doesn't know if Juli is a resident there or not. "Can you call back tomorrow when the regular medical receptionist assistant is here?" * Telephone Encounter - Marlee Newman RN - 07/10/2023 1:14 PM EST Attempted to call pt. Got message "calls to this number are being screened... not accepting your call. Please hang up." * Pt Handout (on AVS) - [facility]AN PATIENT HANDOUT - 07/05/2023 9:39 AM EST Images from the original note were not included. [id number] Celiac Disease Celiac disease is caused by an immune-based reaction to gluten in food. Gluten is a protein found in many grains such as wheat, barley, and rye. Celiac disease affects tiny, fingerlike stalks (villi)in the small bowel (intestine). Normally, the villi make it possible for the small bowel to absorb nutrients from the food you eat. But celiac disease damages the villi. As a result, you can?t absorbthe nutrients you need, even if you eat plenty of food. Celiac disease is an autoimmune disease. You can manage the disease by removing gluten from your diet. This relieves your symptoms. It also reverses the damage to your small bowel. Celiac disease is sometimes called celiac sprue. With celiac disease, villi inside the small intestine become damaged and cannot absorb nutrients properly. Causes of celiac disease Celiac disease may have a genetic component. This means it can be passed down in families. If your healthcare provider thinks that you have celiac disease, they may advise that other members of your family be checked for it as well. Symptoms of celiac disease The symptoms of celiac disease can vary for each person. Some people have no symptoms at all. If symptoms do happen, they can include: Diarrhea, constipation, or both Light colored, foul-smelling, or fatty stool Belly pain and cramping Belly swelling or bloating Weight loss Bone or joint pain Iron deficiency Headaches Tiredness and loss of energy Mood changes, irritability, and depression Infertility Unexplained elevated liver tests Canker sores Skin rash Tooth enamel problems Diagnosing celiac disease Your healthcare provider will ask about your symptoms and health history. You?ll also have a physical exam. Tests are then done to confirm the problem. These can include: Blood tests. These help check for specific proteins in the blood that are present with celiac disease. They also check for anemia and help rule out other problems. The tests are done by taking a blood sample. Upper endoscopy with biopsy. This is done to see inside the stomach and duodenum (first part of the small bowel). For the test, an endoscope is used. This is a thin, flexible tube with a tiny camera on the end. It?s inserted through the mouth and down into the stomach and duodenum. Tools are passed through the endoscope to remove tiny tissue samples (biopsy). The tissue samples are taken to a lab and looked at under a microscope. This is to check the tiny villi for damage. This test must be done while you are still eating food with gluten. This is the only way to see if gluten is damaging the villi. Capsule endoscopy. For this test, a tiny camera the size of a big pill gets swallowed. It passesthrough the small intestine, taking pictures that get evaluated for intestinal damage from celiac disease. Genetic tests. These check for problems with certain genes linked to celiac disease. They are done by taking blood samples. Treating celiac disease To treat celiac disease, you must remove all sources of gluten from your diet. This will allow the villi to heal, so that nutrients can be absorbed normally. It?s important to follow a strict, gluten-free diet daily, even if you don?t have symptoms. If you don?t do this, the small bowel can become permanently damaged, which can lead to serious health problems. These include bone disease, cancer of the small bowel, and various nervous system disorders. You may need to take certain vitamins if your levels are low. Your healthcare provider may want to recheck your intestine with an upper endoscopy or repeat the celiac blood tests to make sure the tissue has healed. Sources of gluten Gluten is found in wheat, barley, and rye. The most common foods with gluten are those made with wheat flour. These include bread, pasta, cake, and cereal. Gluten is also often found in beer, gravies, salad dressings, and most packaged foods. It's even found in some nonfood products, such as certain medicines and cosmetics. Your healthcare provider can refer you to a dietitian to public relations counselor you about what you should avoid. The resources below will also give you lists of food and products that contain gluten. Follow-up You?ll meet with your healthcare provider from time to time to monitor your health. During these visits, routine blood tests are often done to make sure your condition is under control. Your healthcare provider can also refer you to other providers, or support and advocacy groups, to help you cope with your condition. Online resources can tell you how to manage your condition day to day. This information could include recipes, restaurants that have gluten-free options, and grocery stores that offer a good selection of foods. A dietitian can help you make a diet plan that's appropriate and safe. To learn more The following resources can help you learn more about celiac disease and how to manage it: Celiac Disease Foundation National Celiac Association Gluten Intolerance Group National [place] of Diabetes and Digestive and Kidney Diseases Last Reviewed Date: 01/18/202119991179-0674 The [employer]. All rights reserved. This information is not intended as a substitute for professional medical care. Always follow your healthcare professional's instructions. * Telephone Encounter - Andres Singh DO - 07/05/2023 9:12 AM EST Please let the patient know that her HLA typing does show that it is consistent with celiac disease. Given this and her duodenal biopsies the patient may benefit from being placed on to a gluten freediet. She should follow up with Ms. Zhong in our office and GI nutrition for assistance with a gluten free diet. documented in this encounter Plan of Treatment Upcoming Encounters Date Type Department Care Team (Late st Contact Info) Description 07/16/2023 2:30 PM EST Office Visit Rheumatology [place] [address] [facility] [place] [address] Bishop Quinones CRNP [address] [facility] [place] [address] 09/17/2023 2:40 PM EDT Office Visit [facility] [address] [place] [facility] [place] [phone] Mark Caal MD [address] [place] [address] 09/24/2023 2:00 PM EDT Laboratory Laboratory, [facility] [address] [facility] [place] [phone] [facility] [address] [facility] [place] [address] 10/01/2023 2:00 PM EDT Office Visit Hematology/Oncology [facility] [address] [facility] [place] [address] Della Zhong CRNP [address] [place] [address] Scheduled Procedures Name Priority Associated Diagnoses Date/Ti me ESOPHAGOGASTRODUODENOSCOPY ( EGD), FLEXIBLE, TRANSORAL, DIAGNOSTIC Recall Esophageal varices (HCC) COLONOSCOPY FLEXIBLE PROXIMAL DIAGNOSTIC Recall History of colon polyps Scheduled Referrals Name Type Priority Associated Diagnoses Orde r Schedule GI NUTRITION REFERRAL OP Referral Within 30 days (routine) Celiac disease Ordered: 07/05/2023 Health Maintenance Due Date Last Done Comments [...] D LEVEL ONCE IN A LIFETIME-USE SMARTSET# [id number] Completed 08/30/2022, 11/26/2019, 12/28/2013 Diabetic Eye Exam [...] this encounter Medical Devices Implanted Type Area Oxygen Therapy Teacher Device Identifier Shelf Expiration Date Model / Serial / Lot Cement Bone G 1113-140-01 - [id number] Implanted:Qty: 2 [place] [facility] [place]: Knee [employer] 00-1113-14 0- / / [id number] Femur Porous Lcck - [id number] Implanted:Qty: 1 on 09/15/2009 [place] [facility] [place]: Knee [employer] 05/20/2019-5994-01 4- / / [id number] Stem Extension 5988-02-28 - [id number] Implanted:Qty: 1 on 09/15/2009 [place] [facility] [place]: Knee [employer] 07/19/2019-5988-01 0-11 / / [id number] Stem Extension 5988-02-29 - [id number] Implanted:Qty: 1 on 09/15/2009 [place] [facility] Right: Knee [employer] 07/19/2019-5988-01 0-12 / [id number] Plate Tibial Nexgen - [id number] Implanted:Qty: 1 on 09/15/2009 [place] [facility] Right: Knee [employer] 01/18/2019-5980-03 7- / [id number] Surface Articular - [id number] Implanted:Qty: 1 on 09/15/2009 [place] [facility] Right: Knee [employer] 04/19/2015-5994-03 0-20 / / [id number] Clip Quick 2.8mm 230cm - [id number] Implanted:Qty: 1 on 07/25/2021 by Lisa Sullivan MD at ENDOSCOPY [facility] Colon [employer] 09/17/2023 HX-202UR.A / / 15K Clip Quick 2.8mm 230cm - [id number] Implanted:Qty: 1 on 07/25/2021 by Lisa Sullivan MD at ENDOSCOPY [facility] Colon [employer] 09/17/2023 HX-202UR.A / / 15K documented as of this encounter Visit Diagnoses Diagnosis Celiac disease- Primary documented in this encounter Advance Directives Documents on File Type Date Recorded Patient Block Breaker Expl 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 No Care Teams Bilingual Teacher Aide Relationship Specialty Start Date End Date Mark Caal MD [address] [place], [place] [phone] PCP - General Family Medicine 07/21/18 documented as of this encounter
--- OUTSIDE RECORDS SUMMARY | 2023-08-08 12:41 | External Medical Summary | Summary of Care ---
Author Name Unknown Organization [facility] Address [address] [place] [address] Phone [phone] Care Team Providers Care Licensed Electrician Name Role Phone Mark Caal MD Primary Care Provider +1- [phone] Reason for Referral * Evaluate & Treat - Unlimited Visits (Within 30 days (routine)) - Authorized Specialty Diagnoses / Procedures Referred By Contact Referred To Contact GI NUTRITION/IM / Gastroenterology Diagnoses Celiac disease Andres Singh DO [address] [place] [address] Referral ID Status Reason Start Date Expiration Date Visits Requested Visits Authorized [id number] Authorized Specialty Services Required 07/05/2023 999 999 Question Answer Referral Priority Within 30 days (routine) Where should this appointment be scheduled? [facility] For what condition is the patient being seen? Other Comments Recent diagnosis of celiac disease assist with a gluten free diet. Encounter Details Date Type Department Care Team (Late st Contact Info) Description 07/05/2023 Telephone Gastroenterology, [facility] [address] [place] [address] Andres Singh DO [address] [place] [address] Allergies Active Allergy Reactions Criticality Noted Date [...] mRNA, LNP-s, No Pre serve, 2-Dose Series (Drinks4-you) 03/27/2021,08/16/2020,07/19/2020 Pneumococcal Conjugate Vacc, 13 Valent (Prevnar) [...] Telephone Encounter - Maricruz Wayne LPN - 07/12/2023 10:10 AM EST Spoke to pt and her regarding her dx and attempted to get them to schedule with a dietitian, pt and upset that they have had appts in this dept cancelled several times and angry and prefer not to come back to this dept again unless necessary. Pt and did not want to schedulewith dietitian. Stating that they do not use the MYchart, they don't know how to get into it. Told pt that I would send them information in the mail regarding her celiac disease after educatingthem briefly. No further questions or concerns voiced. * Telephone Encounter - Marlee Newman RN - 07/10/2023 1:17 PM EST Noted that pt hasn't read her MyG message from 5 days ago. [facility] Teacher Citizenship answered and said she doesn't know if Juli is a resident there or not. "Can you call back tomorrow when the regular switchboard operator receptionist is here?" * Telephone Encounter - Marlee Newman RN - 07/10/2023 1:14 PM EST Attempted to call pt. Got message "calls to this number are being screened... not accepting your call. Please hang up." * Pt Handout (on AVS) - LOGAN, PATIENT HANDOUT - 07/05/2023 9:39 AM EST Images from the original note were not included. [address] Celiac Disease Celiac disease is caused by [...] can refer you to a dietitian to consumer credit counselor you about what you should avoid. [...] National Celiac Association Gluten Intolerance Group National [place] of Diabetes and Digestive and Kidney Diseases Last Reviewed Date: 01/18/202119997216-1890 Instant[employer]. All rights reserved. This information is not [...] 07/16/2023 2:30 PM EST Office Visit Rheumatology [address] [place] [address] Bishop Quinones CRNP [address] [place] [address] [place], [place] [address] 09/17/2023 2:40 PM EDT Office Visit [facility] [address] [place] [address] Mark Caal MD [address] [place] [address] 09/24/2023 2:00 PM EDT Laboratory Laboratory, [facility] [address] [place] [phone] Karen Olivo [address] [place] [address] 10/01/2023 2:00 PM EDT Office Visit Hematology/Oncology [facility] [place] [address] [facility] [address] Della Zhong CRNP [address] [facility] [place] [address] Scheduled Procedures Name Priority Associated Diagnoses Date/Ti [...] D LEVEL ONCE IN A LIFETIME-USE SMARTSET# 73515 Completed 08/30/2022, 11/26/2019, 12/28/2013 Diabetic Eye Exam [...] this encounter Medical Devices Implanted Type Area Resin Mixer Device Identifier Shelf Expiration Date Model / Serial / Lot Cement Bone G 1113-140-01 - [id number] Implanted:Qty: 2 on 09/15/2009 at [place] [facility] Right: Knee [employer] 00-1113-14 / / [id number] Femur Porous Lcck - [id number] Implanted:Qty: 1 on 09/15/2009 at OR [facility] Right: Knee [employer] 05/20/2019-5994-01 4- / / [id number] Stem Extension 5988-02-28 - [id number] Implanted:Qty: 1 on 09/15/2009 at [facility] Right: Knee [employer] 07/19/2019-5988-01 0-11 / / [id number] Stem Extension 5988-02-29 - [id number] Implanted:Qty: 1 on 09/15/2009 at [facility] Right: Knee [employer] 07/19/2019-5988-01 0-12 / [id number] Plate Tibial Nexgen - [id number] Implanted:Qty: 1 on 09/15/2009 at [facility] Right: Knee [employer] 01/18/2019-5980-03 7- / [id number] Surface Articular - [id number] Implanted:Qty: 1 on 09/15/2009 at [facility] Right: Knee [employer] 04/19/2015-5994-03 0-20 / [id number] Clip Quick 2.8mm 230cm - [id number] Implanted:Qty: 1 on 07/25/2021 by Lisa Sullivan MD at ENDOSCOPY [facility] Colon [employer] 09/17/2023 HX-202UR.A / / 15K Clip Quick 2.8mm 230cm - [id number] Implanted:Qty: 1 on 07/25/2021 by Lisa Sullivan MD at ENDOSCOPY [facility] Colon [employer] 09/17/2023 HX-202UR.A / / [id number] documented as of this encounter Visit Diagnoses Diagnosis Celiac disease- Primary documented in this encounter Advance Directives Documents on File Type Date Recorded Patient Mechanism Assembler Expl anation Advance Directives and Living Will [...] the patient have Health Care Power of Kiln Door Builder? No Care Teams Licensed Electrician Relationship Specialty Start Date End Date Mark Caal MD [address] [facility] [place] [address] PCP - General Family Medicine 07/21/18 documented as of this encounter
--- OUTSIDE RECORDS SUMMARY | 2023-08-08 12:41 | External Medical Summary | Summary of Care ---
Author Name Unknown Organization [facility] Address [address] [facility] [place] [address] Phone [phone] Care Team Providers Care Appian Developer Name Role Phone Mark Caal MD Primary Care Provider +1- [phone] Reason for Referral * Evaluate & Treat - Unlimited Visits (Within 30 days (routine)) - Authorized Specialty Diagnoses / Procedures Referred By Contact Referred To Contact GI NUTRITION/IM / Gastroenterology Diagnoses Celiac disease Andres Singh DO [email or web address] [place] [address] Referral ID Status Reason Start Date Expiration Date Visits Requested Visits Authorized [id number] Authorized Specialty Services Required 07/05/2023 999 999 Question Answer Referral Priority Within 30 days (routine) Where should this appointment be scheduled? [facility] For what condition is the patient being seen? Other Comments Recent diagnosis of celiac disease assist with a gluten free diet. Encounter Details Date Type Department Care Team (Late st Contact Info) Description 07/05/2023 Telephone Gastroenterology, [facility] [address] [place] [address] Andres Singh DO [address] [place] [address] Allergies Active Allergy Reactions Criticality Noted Date [...] as of this encounter (statuses as of 07/10/2023) Medications Medication Sig Dispensed Refills Start Date [...] as of this encounter (statuses as of 07/10/2023) Active Problems Problem Noted Date Diagnosed Date [...] as of this encounter (statuses as of 07/10/2023) Resolved Problems Problem Noted Date Diagnosed Date [...] as of this encounter (statuses as of 07/10/2023) Immunizations Name Administration Dates Next Due COVID-19 mRNA, LNP-s, No Pre serve, 2-Dose Series (GENBAND) 03/27/2021,08/16/2020,07/19/2020 Pneumococcal Conjugate Vacc, 13 Valent (Prevnar) [...] EST Noted that pt hasn't read her InstrumentLife message from 5 days ago. [facility] Lehr Loader answered and said she doesn't know if Juli is a resident there or not. "Can you call back tomorrow when the regular bilingual medical receptionist is here?" * Telephone Encounter - Marlee Newman RN - 07/10/2023 1:14 PM EST Attempted to call pt. Got message "calls to this number are being screened... not accepting your call. Please hang up." * Pt Handout (on AVS) - LOGAN PATIENT HANDOUT - 07/05/2023 9:39 AM EST Images from the original note were not included. [address] Celiac Disease Celiac disease is caused by [...] can refer you to a dietitian to university counselor you about what you should avoid. [...] National Celiac Association Gluten Intolerance Group National [place] of Diabetes and Digestive and Kidney Diseases Last Reviewed Date: 01/18/202119990137-8551 The PushPage. All rights reserved. This information is not [...] 07/16/2023 2:30 PM EST Office Visit Rheumatology [place] [address] [facility] [address] Bishop Quinones CRNP [address] [facility] [place] [address] 09/17/2023 2:40 PM EDT Office Visit [facility] [address] [place] [facility] [place] [phone] Mark Caal MD [address] [place] [address] 09/24/2023 2:00 PM EDT Laboratory Laboratory, [facility] [address] [facility] [place] [phone] [facility] [address] [facility] [address] 10/01/2023 2:00 PM EDT Office Visit Hematology/Oncology [facility] [address] [facility] [place] [address] Della Zhong CRNP [address] [place] [address] Scheduled Procedures Name Priority Associated Diagnoses Date/Ti [...] D LEVEL ONCE IN A LIFETIME-USE SMARTSET# 47102 Completed 08/30/2022, 11/26/2019, 12/28/2013 Diabetic Eye Exam [...] this encounter Medical Devices Implanted Type Area Cloth Mercerizing Supervisor Device Identifier Shelf Expiration Date Model / Serial / Lot Cement Bone G 1113-140-01 - [id number] Implanted:Qty: 2 on 09/15/[address] [facility] Right: Knee [employer] 00-1113-14 0- / / [id number] Femur Porous Lcck - [id number] Implanted:Qty: 1 on 09/15/[address] [facility] Right: Knee [employer] 05/20/2019-5994-01 4- / / [id number] Stem Extension 5988-02-28 - [id number] Implanted:Qty: 1 on 09/15/[address] [facility] Right: Knee [employer] 07/19/2019-5988-01 0-11 / / [id number] Stem Extension 5988-02-29 - [id number] Implanted:Qty: 1 on 09/15/[address] [facility] Right: Knee [employer] 07/19/2019-5988-01 0-12 / [id number] Plate Tibial Nexgen - [id number] Implanted:Qty: 1 on 09/15/[address] [facility] Right: Knee [employer] 01/18/2019-5980-03 7- / [id number] Surface Articular - [id number] Implanted:Qty: 1 on 09/15/[address] [facility] Right: Knee [employer] 04/19/2015-5994-03 0-20 / / [id number] Clip Quick 2.8mm 230cm - [id number] Implanted:Qty: 1 on 07/25/2021 by Lisa Sullivan MD at ENDOSCOPY [facility] Colon [employer] 09/17/2023 HX-202UR.A / / 15K Clip Quick 2.8mm 230cm - [id number] Implanted:Qty: 1 on 07/25/2021 by Lisa Sullivan MD at ENDOSCOPY [facility] Colon [employer] 09/17/2023 HX-202UR.A / / 15K documented as of this encounter Visit Diagnoses Diagnosis Celiac disease- Primary documented in this encounter Advance Directives Documents on File Type Date Recorded Patient Automobile Body Repairer Expl anation Advance Directives and Living Will [...] the patient have Health Care Power of Pattern Drafter? No Care Teams Appian Developer Relationship Specialty Start Date End Date Mark Caal MD [address] [place], [place] [phone] PCP - General Family Medicine 07/21/18 documented as of this encounter
--- OUTSIDE RECORDS SUMMARY | 2023-08-08 12:41 | External Medical Summary | Summary of Care ---
Author Name Unknown Organization [facility] Address [address] [facility] [place] [address] Phone [phone] Care Team Providers Care Long Chain Beamer Name Role Phone Mark Caal MD Primary Care Provider +1- [phone] Reason for Referral * Evaluate & Treat - Unlimited Visits (Within 30 days (routine)) - Authorized Specialty Diagnoses / Procedures Referred By Contact Referred To Contact GI NUTRITION/IM / Gastroenterology Diagnoses Celiac disease Andres Singh DO [address] [place] [address] Referral ID Status Reason Start Date Expiration Date Visits Requested Visits Authorized [id number] Authorized Specialty Services Required 07/05/2023 999 999 Question Answer Referral Priority Within 30 days (routine) Where should this appointment be scheduled? [facility] For what condition is the patient being seen? Other Comments Recent diagnosis of celiac disease assist with a gluten free diet. Encounter Details Date Type Department Care Team (Late st Contact Info) Description 07/05/2023 Telephone Gastroenterology, [facility] [address] [place] [address] Andres Singh DO [address] [place] [address] Allergies Active Allergy Reactions Criticality Noted Date [...] as of this encounter (statuses as of 07/05/2023) Medications Medication Sig Dispensed Refills Start Date [...] as of this encounter (statuses as of 07/05/2023) Active Problems Problem Noted Date Diagnosed Date [...] as of this encounter (statuses as of 07/05/2023) Resolved Problems Problem Noted Date Diagnosed Date [...] as of this encounter (statuses as of 07/05/2023) Immunizations Name Administration Dates Next Due COVID-19 mRNA, LNP-s, No Pre serve, 2-Dose Series (ApolloMed) 03/27/2021,08/16/2020,07/19/2020 Pneumococcal Conjugate Vacc, 13 Valent (Prevnar) [...] as of this encounter Miscellaneous Notes * Pt Handout (on AVS) - LOGAN, PATIENT HANDOUT - 07/05/2023 9:39 AM EST Images from the original note were not included. [address] Celiac Disease Celiac disease is caused by [...] can refer you to a dietitian to assistant corporation counsel you about what you should avoid. The [...] National Celiac Association Gluten Intolerance Group National [employer] of Diabetes and Digestive and Kidney Diseases Last Reviewed Date: 01/18/202119991571-4797 Guide[employer]. All rights reserved. This information is not [...] 07/16/2023 2:30 PM EST Office Visit Rheumatology [facility] [address] [place] [address] Bishop Quinones CRNP [address] [place] [address] 09/17/2023 2:40 PM EDT Office Visit [facility] [address] [place] [address] Mark Caal MD [address] [place] [address] 09/24/2023 2:00 PM EDT Laboratory Laboratory, [facility] 132 [facility] [place] [phone] [facility] [address] [facility] [place] [address] 10/01/2023 2:00 PM EDT Office Visit Hematology/Oncology [facility] [address] [facility] [place] [facility] [place] [address] Della Zhong CRNP [address] [facility] [place] [address] Scheduled Procedures Name Priority Associated Diagnoses Date/Ti [...] D LEVEL ONCE IN A LIFETIME-USE SMARTSET# 94189 Completed 08/30/2022, 11/26/2019, 12/28/2013 Diabetic Eye Exam [...] this encounter Medical Devices Implanted Type Area Grain Oilseed Or Pasture Farm Worker Device Identifier Shelf Expiration Date Model / Serial / Lot Cement Bone G 1113-140-01 - [id number] Implanted:Qty: 2 on 09/15/2009 at OR [facility] Right: Knee [employer] 00-1113-14 0- / / [id number] Femur Porous Lcck - [id number] Implanted:Qty: 1 on 09/15/2009 at OR [facility] Right: Knee [employer] 05/20/2019-5994-01 4- / / [id number] Stem Extension 5988-02-28 - [id number] Implanted:Qty: 1 on 09/15/2009 at OR [facility] Right: Knee [employer] 07/19/20195988-01 0- / / [id number] Stem Extension 5988-02-29 - [id number] Implanted:Qty: 1 on 09/15/2009 at OR [facility] Right: Knee [employer] 07/19/20195988-01 0- / [id number] Plate Tibial Nexgen - [id number] Implanted:Qty: 1 on 09/15/2009 at [place] [facility] Right: Knee [employer] 01/18/2019-5980-03 7- / [id number] Surface Articular - [id number] Implanted:Qty: 1 on 09/15/2009 at [place] [facility] Right: Knee [employer] 04/19/2015-5994-03 0-20 / / [id number] Clip Quick 2.8mm 230cm - [id number] Implanted:Qty: 1 on 07/25/2021 by Lisa Sullivan MD at [facility] Colon [employer] 09/17/2023 HX-202UR.A / / 15K Clip Quick 2.8mm 230cm - [id number] Implanted:Qty: 1 on 07/25/2021 by Lisa Sullivan MD at [facility] Colon [employer] 09/17/2023 HX-202UR.A / / 15K documented as of this encounter Visit Diagnoses Diagnosis Celiac disease- Primary documented in this encounter Advance Directives Documents on File Type Date Recorded Patient Human Resources Professional Expl anation Advance Directives and Living [...] the patient have Health Care Power of General Surgery Physician Assistant? No Care Teams Long Chain Beamer Relationship Specialty Start Date End Date Mark Caal MD [address] [place] [address] PCP - General Family Medicine 07/21/18 documented as of this encounter
--- OUTSIDE RECORDS SUMMARY | 2023-08-08 12:41 | External Medical Summary | Summary of Care ---
Author Name Unknown Organization [facility] Address [address] [facility] [place] [address] Phone [phone] Care Team Providers Care Coal Equipment Operator Name Role Phone Mark Caal MD Primary Care Provider +1- [phone] Reason for Visit * Reason Onset Date Comments Test Results Lab 07/01/2023 Appointment 07/01/2023 Encounter Details Date Type Department Care Team (Late st Contact Info) Description 07/01/2023 Telephone Gastroenterology, [facility] [address] [place] [address] Andres Singh DO [address] [place] [address] Test Results Lab; Appointment Allergies Active Allergy [...] Telephone Encounter - Sylvester Arellano RN - 07/12/2023 8:54 AM EST Letter sent for scheduling. * Telephone Encounter - Danni Rene RN [...] PM EST Per Della: "Patient discharged from [facility] 06/12/23. Admitted for decompensated ADRIAN cirrhosis and [...] provider can call her with the results. JOSE-Dr.Mem Ajithon and Nursing * Telephone Encounter - Tracey Bush, KAELA - 07/01/2023 11:04 AM EST Copying what was added to a Nephrology TE and starting Gastro TE Andres Singh DO 07/01/23 10:34 AM Note Please let [...] 07/16/2023 2:30 PM EST Office Visit Rheumatology [address] [place], [place] [address] Bishop Quinones CRNP [address] [place] [address] [place] [address] 09/17/2023 2:40 PM EDT Office Visit [facility] [address] [place] [address] Mark Caal MD [address] [place] [address] 09/24/2023 2:00 PM EDT [facility] 132 [facility] [place] [phone] Karen Olivos [address] [facility] [place] [address] 10/01/2023 2:00 PM EDT Office Visit Hematology/Oncology [facility] [place] [address] [facility] [place] [address] Della Zhong CRNP [address] [place] [id number] Scheduled Procedures Name Priority Associated Diagnoses Date/Ti [...] D LEVEL ONCE IN A LIFETIME-USE SMARTSET# 95900 Completed 08/30/2022, 11/26/2019, 12/28/2013 Diabetic Eye Exam [...] this encounter Medical Devices Implanted Type Area Sterile Processing Tech Device Identifier Shelf Expiration Date Model / Serial / Lot Cement Bone G 1113-140-01 - [id number] Implanted:Qty: 2 on 09/15/2009 [place] [facility] [place] Right: Knee [employer] 00-1113-14 0 [id number] Femur Porous Lcck - [id number] Implanted:Qty: 1 on 09/15/2009 at [place] [facility] Right: Knee [employer] 05/20/2019-5994-01 / [id number] Stem Extension 5988-02-28 - [id number] Implanted:Qty: 1 on 09/15/2009 at [place] [facility] Right: Knee [employer] 07/19/2019-5988-01 0- [id number] Stem Extension 5988-02-29 - [id number] Implanted:Qty: 1 on 09/15/2009 at [place] [facility] Right: Knee [employer] 07/19/20195988-01 0- [id number] Plate Tibial Nexgen - [id number] Implanted:Qty: 1 on 09/15/2009 at [place] [facility] Right: Knee [employer] 01/18/2019 00-5980-03 7- [id number] Surface Articular - [id number] Implanted:Qty: 1 on 09/15/2009 at [place] [facility] Right: Knee [employer] 04/19/2015-5994-03 0- [id number] Clip Quick 2.8mm 230cm - [id number] Implanted:Qty: 1 on 07/25/2021 by Lisa Sullivan MD at ENDOSCOPY [facility] Colon [employer] 09/17/2023 HX-UR.A / / 15K Clip Quick 2.8mm 230cm - [id number] Implanted:Qty: 1 on 07/25/2021 by Lisa Sullivan MD at ENDOSCOPY [facility] Colon [employer] 09/17/2023 HX-UR.A / / 15K documented as of this encounter Advance Directives Documents on File Type Date Recorded Patient Sizing End Bander Expl anation Advance Directives and Living Will [...] the patient have Health Care Power of Debrander? No Care Teams Coal Equipment Operator Relationship Specialty Start Date End Date Mark Caal MD [address] [place] [address] PCP - General Family Medicine 07/21/18 documented as of this encounter
--- OUTSIDE RECORDS SUMMARY | 2023-08-08 12:41 | External Medical Summary | Summary of Care ---
Author Name Unknown Organization [facility] Address [address] [place] [address] Phone [phone] Care Team Providers Care Supervisor Pipe Manufacture Name Role Phone Mark Caal MD Primary Care Provider +1- [phone] Reason for Visit * Reason Onset Date Comments Order Request 07/05/2023 prolia Encounter Details Date Type Department Care Team (Late st Contact Info) Description 07/05/2023 Telephone Rheumatology [facility] [address] [place] [address] Bishop Quinones CRNP [address] [place] [address] Order Request (prolia) Allergies Active Allergy Reactions Criticality Noted Date [...] inj 60 mgIndications:Senile osteoporosis 60 mg SC [id number] 07/16/2023 07/10/2024 Active documented as of this [...] mRNA, LNP-s, No Pre serve, 2-Dose Series (RoyaltyShare) 03/27/2021,08/16/2020,07/19/2020 Pneumococcal Conjugate Vacc, 13 Valent (Prevnar) [...] encounter Miscellaneous Notes * Telephone Encounter - Suze Andrews LPN - 07/05/2023 2:36 PM EST Chart reviewed and labs noted to be within normal limits. Patient has been seen within the last 12 months by a Rheumatology provider. Prolia authorization approved and updated in referral. Last injection has been > 6 months and 1 day. CAM orders pended for signature. Thank you! documented in this encounter Plan of Treatment Upcoming Encounters Date Type Department Care Team (Late st Contact Info) Description 07/16/2023 2:30 PM EST Office Visit Rheumatology [address] [place] [address] Bishop Quinones CRNP [address] [place] [address] [place] [address] 09/17/2023 2:40 PM EDT Office Visit [facility] [address] [place] [phone] Mark Caal MD [address] [place] [address] 09/24/2023 2:00 PM EDT Laboratory Laboratory, [facility] 132 [facility] [place] [phone] [facility] 132 [facility] [place] [address] 10/01/2023 2:00 PM EDT Office Visit Hematology/Oncology [facility] [address] [facility] [place] [address] Della Zhong CRNP 400 [facility] [place] [phone] Scheduled Procedures Name Priority Associated Diagnoses Date/Ti [...] D LEVEL ONCE IN A LIFETIME-USE SMARTSET# 70845 Completed 08/30/2022, 11/26/2019, 12/28/2013 Diabetic Eye Exam [...] encounter Medical Devices Implanted Type Area Fire Patroller Device Identifier Shelf Expiration Date Model / Serial / Lot Cement Bone G 1113-140-01 - [id number] Implanted:Qty: 2 on 09/15/2009 at OR [facility] Right: Knee [employer] 00-1113-14 0- [id number] Femur Porous Lcck - [id number] Implanted:Qty: 1 on 09/15/2009 at OR [facility] Right: Knee [employer] 05/20/2019-5994-01 4- / [id number] Stem Extension 5988-02-28 - [id number] Implanted:Qty: 1 on 09/15/2009 at OR [facility] Right: Knee [employer] 07/19/2019-5988-01 0- / [id number] Stem Extension 5988-02-29 - [id number] Implanted:Qty: 1 on 09/15/2009 at OR [facility] Right: Knee [employer] 07/19/2019-5988-01 0- / [id number] Plate Tibial Nexgen - [id number] Implanted:Qty: 1 on 09/15/2009 at OR [facility] Right: Knee [employer] 01/18/2019-5980-03 7- / / [id number] Surface Articular - [id number] Implanted:Qty: 1 on 09/15/2009 at OR [facility] Right: Knee [employer] 04/19/2015-5994-03 0-20 / / [id number] Clip Quick 2.8mm 230cm - [id number] Implanted:Qty: 1 on 07/25/2021 by Lisa Sullivan MD at [facility] [employer] 09/17/2023 HX-202UR.A / / 15K Clip Quick 2.8mm 230cm - [id number] Implanted:Qty: 1 on 07/25/2021 by Lisa Sullivan MD at [facility] [employer] 09/17/2023 HX-UR.A / / 15K documented as of this encounter Visit Diagnoses Diagnosis Senile osteoporosis- Primary documented in this encounter Advance Directives Documents on File Type Date Recorded Patient Event Marketing Specialist Expl anation Advance Directives and Living [...] the patient have Health Care Power of Drier And Grinder Tender? No Care Teams Supervisor Pipe Manufacture Relationship Specialty Start Date End Date Mark Caal MD [address] [place] [address] PCP - General Family Medicine 07/21/18 documented as of this encounter
--- OUTSIDE RECORDS SUMMARY | 2023-08-08 12:41 | External Medical Summary | Summary of Care ---
Author Name Unknown Organization [facility] Address [address] [facility] [place] [address] Phone [phone] Care Team Providers Care Alarm Installer Name Role Phone Mark Caal MD Primary Care Provider +1- [phone] Reason for Referral * Evaluate & Treat - Unlimited Visits (Within 30 days (routine)) - Authorized Specialty Diagnoses / Procedures Referred By Contact Referred To Contact GI NUTRITION/IM / Gastroenterology Diagnoses Celiac disease Andres Singh DO [address] [place] [address] Referral ID Status Reason Start Date Expiration Date Visits Requested Visits Authorized [id number] Authorized Specialty Services Required 07/05/2023 999 999 Question Answer Referral Priority Within 30 days (routine) Where should this appointment be scheduled? [facility] For what condition is the patient being seen? Other Comments Recent diagnosis of celiac disease assist with a gluten free diet. Encounter Details Date Type Department Care Team (Late st Contact Info) Description 07/05/2023 Telephone Gastroenterology, [facility] [address] [place] [address] Andres Singh DO [address] [place] [address] Allergies Active Allergy Reactions Criticality Noted Date [...] mRNA, LNP-s, No Pre serve, 2-Dose Series (EdCaliber) 03/27/2021,08/16/2020,07/19/2020 Pneumococcal Conjugate Vacc, 13 Valent (Prevnar) [...] EST Noted that pt hasn't read her Kidamom message from 5 days ago. [facility] Commercial Field Inspector answered and said she doesn't know if Juli is a resident there or not. "Can you call back tomorrow when the regular office assistant receptionist is here?" * Telephone Encounter - Marlee Newman RN - 07/10/2023 1:14 PM EST Attempted to call pt. Got message "calls to this number are being screened... not accepting your call. Please hang up." * Pt Handout (on AVS) - LOGAN PATIENT HANDOUT - 07/05/2023 9:39 AM EST Images from the original note were not included. [address] Celiac Disease Celiac disease is caused by [...] can refer you to a dietitian to school adjustment counselor you about what you should avoid. [...] National Celiac Association Gluten Intolerance Group National [place] of Diabetes and Digestive and Kidney Diseases Last Reviewed Date: 01/18/202119990077-0118 The [employer]. All rights reserved. This information is not [...] 07/16/2023 2:30 PM EST Office Visit Rheumatology [place] [address] [facility] [place] [address] Bishop Quinones CRNP [address] [facility] [place] [address] 09/17/2023 2:40 PM EDT Office Visit [facility] [address] [place] [phone] Mark Caal MD [address] [place] [address] 09/24/2023 2:00 PM EDT Laboratory Laboratory, [facility] 132 [facility] [place] [phone] [facility] 132 [facility] [address] 10/01/2023 2:00 PM EDT Office Visit Hematology/Oncology [facility] 200 [facility] [place] [address] Della Zhong CRNP [address] [place] [address] Scheduled Procedures Name Priority Associated Diagnoses Date/Ti [...] D LEVEL ONCE IN A LIFETIME-USE SMARTSET# [id number] Completed 08/30/2022, 11/26/2019, 12/28/2013 Diabetic Eye Exam [...] this encounter Medical Devices Implanted Type Area Utilization Engineer Device Identifier Shelf Expiration Date Model / Serial / Lot Cement Bone G 1113-140-01 - [id number] Implanted:Qty: 2 on [place] [facility]: Knee [employer] 00-1113-14 0- / / [id number] Femur Porous Lcck - [id number] Implanted:Qty: 1 on 09/15/2009 [place] [facility] Right: Knee [employer] 05/20/2019-5994-01 4- / / [id number] Stem Extension 5988-02-28 - [id number] Implanted:Qty: 1 on 09/15/2009 [place] [facility] Right: Knee [employer] 07/19/2019-5988-01 0-11 / / [id number] Stem Extension 5988-02-29 - [id number] Implanted:Qty: 1 on 09/15/2009 [place] [facility] Right: Knee [employer] 07/19/2019-5988-01 0-12 / [id number] Plate Tibial Nexgen - [id number] Implanted:Qty: 1 on 09/15/2009 at [place] [facility] Right: Knee [employer] 01/18/2019-5980-03 7- / [id number] Surface Articular - [id number] Implanted:Qty: 1 on 09/15/2009 at [place] [facility] Right: Knee [employer] 04/19/2015-5994-03 0-20 / / [id number] Clip Quick 2.8mm 230cm - [id number] Implanted:Qty: 1 on 07/25/2021 by Lisa Sullivan MD at ENDOSCOPY [facility] Colon [employer] 09/17/2023 HX-202UR.A / / 15K Clip Quick 2.8mm 230cm - [id number] Implanted:Qty: 1 on 07/25/2021 by Lisa Sullivan MD at ENDOSCOPY [facility] Colon [employer] 09/17/2023 HX-202UR.A / / 15K documented as of this encounter Visit Diagnoses Diagnosis Celiac disease- Primary documented in this encounter Advance Directives Documents on File Type Date Recorded Patient Manager Mortgage Expl anation Advance Directives and Living Will [...] the patient have Health Care Power of Hydrometer Finisher? No Care Teams Alarm Installer Relationship Specialty Start Date End Date Mark Caal MD [address] [place], [place] [phone] PCP - General Family Medicine 07/21/18 documented as of this encounter
--- OUTSIDE RECORDS SUMMARY | 2023-08-08 12:42 | External Medical Summary | Summary of Care ---
Author Name Unknown Organization [facility] Address [address] [facility] [place] [address] Phone [phone] Care Team Providers Care Chemists Name Role Phone Mark Caal MD Primary Care Provider +1- [phone] Reason for Referral * Evaluate & Treat - Unlimited Visits (Within 30 days (routine)) - Authorized Specialty Diagnoses / Procedures Referred By Contact Referred To Contact GI NUTRITION/IM / Gastroenterology Diagnoses Celiac disease Andres Singh DO [address] [place] [address] Referral ID Status Reason Start Date Expiration Date Visits Requested Visits Authorized [id number] Authorized Specialty Services Required 07/05/2023 999 999 Question Answer Referral Priority Within 30 days (routine) Where should this appointment be scheduled? [facility] For what condition is the patient being seen? Other Comments Recent diagnosis of celiac disease assist with a gluten free diet. Encounter Details Date Type Department Care Team (Late st Contact Info) Description 07/05/2023 Telephone Gastroenterology, [facility] [address] [place] [address] Andres Singh DO [address] [place] [address] Allergies Active Allergy Reactions Criticality Noted Date [...] mRNA, LNP-s, No Pre serve, 2-Dose Series ([email or web address]) 03/27/2021,08/16/2020,07/19/2020 Pneumococcal Conjugate Vacc, 13 Valent (Prevnar) [...] encounter Miscellaneous Notes * Telephone Encounter - Andres Singh DO [...] PM EST Office Visit Rheumatology [place] [phone] [facility] [place] [address] Bishop Quinones CRNP [address] [place] [address] [place] [address] 09/17/2023 2:40 PM EDT Office Visit [facility] [address] [facility] [phone] Mark Caal MD [address] [place] [address] 09/24/2023 2:00 PM EDT Laboratory Laboratory, [facility] 132 [facility] [place] [phone] [place], Lab [facility] 132 [facility] [place] [address] 10/01/2023 2:00 PM EDT Office Visit Hematology/Oncology Nalini Neff [place] 200 [facility] [address] Della Zhong, RAKEL [address] [place] [address] Scheduled Procedures Name Priority Associated Diagnoses Date/Ti [...] D LEVEL ONCE IN A LIFETIME-USE SMARTSET# [id number] Completed 08/30/2022, 11/26/2019, 12/28/2013 Diabetic Eye Exam [...] this encounter Medical Devices Implanted Type Area Buyer Intern Device Identifier Shelf Expiration Date Model / Serial / Lot Cement Bone G 1113-140-01 - [id number] Implanted:Qty: 2 on 09/15/2009 at [place] [facility] Right: Knee [employer] 00-1113-14 0 [id number] Femur Porous Lcck - [id number] Implanted:Qty: 1 on 09/15/2009 at OR [facility] Right: Knee [employer] 05/20/2019-5994-01 / [id number] Stem Extension 5988-02-28 - [id number] Implanted:Qty: 1 on 09/15/2009 at OR [facility] Right: Knee [employer] 07/19/2019-5988-01 0 [id number] Stem Extension 5988-02-29 - [id number] Implanted:Qty: 1 on 09/15/2009 at OR [facility] Right: Knee [employer] 07/19/2019-5988-01 0- [id number] Plate Tibial Nexgen - [id number] Implanted:Qty: 1 on 09/15/2009 at OR [facility] Right: Knee [employer] 01/18/2019-5980-03 7- [id number] Surface Articular - [id number] Implanted:Qty: 1 on 09/15/2009 at OR [facility] Right: Knee [employer] 04/19/2015-5994-03 0- / [id number] Clip Quick 2.8mm 230cm - [id number] Implanted:Qty: 1 on 07/25/2021 by Lisa Sullivan MD at [facility] [employer] 09/17/2023 HX-202UR.A / / 15K Clip Quick 2.8mm 230cm - [id number] Implanted:Qty: 1 on 07/25/2021 by Lisa Sullivan MD at [facility] [employer] 09/17/2023 HX-202UR.A / / 15K documented as of this encounter Visit Diagnoses Diagnosis Celiac disease- Primary documented in this encounter Advance Directives Documents on File Type Date Recorded Patient Mental Health Worker Expl anation Advance Directives and Living [...] the patient have Health Care Power of Personal Lines Insurance Advisor? No Care Teams Chemists Relationship Specialty Start Date End Date Mark Caal MD [address] [place] [facility] [place] [id number] PCP - General Family Medicine 07/21/18 documented as of this encounter
--- OUTSIDE RECORDS SUMMARY | 2023-08-08 12:42 | External Medical Summary | Summary of Care ---
Author Name Unknown Organization [facility] Address [address] [facility] [place] [address] Phone [phone] Care Team Providers Care Executive Relations Specialist Name Role Phone Mark Caal MD Primary Care Provider +1- [phone] Reason for Visit * Reason Onset Date Comments Test Results Lab 07/01/2023 Appointment 07/01/2023 Encounter Details Date Type Department Care Team (Late st Contact Info) Description 07/01/2023 Telephone Gastroenterology, [facility] [address] [place] [address] Andres Singh DO [address] [place] [address] Test Results Lab; Appointment Allergies Active Allergy [...] as of this encounter (statuses as of 07/02/2023) Medications Medication Sig Dispensed Refills Start Date [...] as of this encounter (statuses as of 07/02/2023) Active Problems Problem Noted Date Diagnosed Date [...] as of this encounter (statuses as of 07/02/2023) Resolved Problems Problem Noted Date Diagnosed Date [...] as of this encounter (statuses as of 07/02/2023) Immunizations Name Administration Dates Next Due COVID-19 [...] PM EST Per Della: "Patient discharged from [facility] 06/12/23. Admitted for decompensated ADRIAN cirrhosis and [...] provider can call her with the results. JOSE-Dr.Memon Ajith and Nursing * Telephone Encounter - Tracey Bush RN - 07/01/2023 11:04 AM EST Copying what was added to a Nephrology TE and starting Gastro TE Andres Singh 07/01/23 10:34 AM Note Please let the [...] Care Team (Late st Contact Info) Description 07/03/2023 2:00 PM EST [facility] 132 [facility] [place] [phone] Karen Olivo 132 [facility] [place] [address] 07/16/2023 2:30 PM EST Office Visit Rheumatology [address] [place] [address] Bishop Quinones CRNP [address] [place] [address], [place] [address] 09/17/2023 2:40 PM EDT Office Visit [facility] [address] [place] [phone] Mark Caal MD [address] [place] [address] 09/24/2023 2:00 PM EDT [facility] [address] [facility] [place] [address] Karen Olivo 132 [facility] [place] [address] 10/01/2023 2:00 PM EDT Office Visit Hematology/Oncology Nalini Neff [place] 200 [facility] [place] [address] Della Zohng CRNP [address] [place] [address] Scheduled Procedures Name Priority [...] D LEVEL ONCE IN A LIFETIME-USE SMARTSET# [id number] Completed 08/30/2022, 11/26/2019, 12/28/2013 Diabetic Eye Exam [...] this encounter Medical Devices Implanted Type Area German Instructor Device Identifier Shelf Expiration Date Model / Serial / Lot Surface Articular - [id number] Implanted:Qty: 1 on 09/15/2009 at [place] [facility] Right: Knee [employer] 04/19/2015 00-5994-03 0-20 / / [id number] Clip Quick 2.8mm 230cm - [id number] Implanted:Qty: 1 on 07/25/2021 by Lisa Sullivan MD at ENDOSCOPY [facility] Colon [employer] 09/17/2023 HX-202UR.A / / 15K documented as of this encounter Advance Directives Documents on File Type Date Recorded Patient Risk Management Director Expl anation Advance Directives and Living [...] the patient have Health Care Power of Tube Mill Operator? No Care Teams Executive Relations Specialist Relationship Specialty Start Date End Date Mark Caal MD [address] [place] [address] PCP - General Family Medicine 07/21/18 documented as of this encounter
--- OUTSIDE RECORDS SUMMARY | 2023-08-08 12:42 | External Medical Summary | Summary of Care ---
Author Name Unknown Organization [facility] Address [address] [place] [address] Phone [phone] Care Team Providers Care County Extension Agent Name Role Phone Mark Caal MD Primary Care Provider +1- [phone] Reason for Referral * (Within 10 days (routine)) - Authorized Specialty Diagnoses / Procedures Referred By Contskye t Referred To Contact Diagnoses Celiac disease Procedures HLA TYPING FOR CELIAC DISEASE Andres Singh DO [address] [place] [address] Referral ID Status Reason Start Date Expiration Date V isits Requested Visits Authorized [id number] Authorized 07/01/2023 999 999 Reason for Visit * Reason Onset Date Comments Appointment 07/01/2023 Encounter Details Date Type Department Care Team (Late st Contact Info) Description 07/01/2023 Telephone Nephrology, [address] [address] Mahsa Calvo MD [address] [place] [address] Appointment Allergies Active Allergy Reactions Criticality Noted [...] mRNA, LNP-s, No Pre serve, 2-Dose Series (Newzstand) 03/27/2021,08/16/2020,07/19/2020 Pneumococcal Conjugate Vacc, 13 Valent (Prevnar) [...] encounter Miscellaneous Notes * Telephone Encounter - Catie Lozano OSA - 07/02/2023 3:34 PM EST Spoke to pt, she refused any appointments with gastro as she is "tired of going back and forth". FYI * Telephone Encounter - Pedro Zhong CRNP - 07/01/2023 4:06 PM EST Will be happy to see her in clinic to f/u. If no open appts, I could come over [facility] on August 12 or at 3PM. Looks like Dr. Singh placed the HLA typing lab order. * Telephone Encounter - Zulema Jerome LPN - 07/01/2023 11:34 AM EST Noted * Telephone Encounter - Tracey Bush RN - 07/01/2023 11:12 AM EST Started new GI TE with Dr Singh's message. [facility] Nephrology I was able to contact pt re GI She stated she didn't get nephrology message about coming at 12 noon, She cannot come at noon, she will be there at 4pm as scheduled. She was walking out the door when I called her and she doesn't have a cell phone. * Telephone Encounter - Andres Singh DO - 07/01/2023 10:34 AM EST Please let the patient know [...] Zhong in our office for further recommendations. * Telephone Encounter - Zulema Jerome LPN - 07/01/2023 9:03 AM EST TE per Dr Urbina He would like to have pt come in early LMM to see if he could come in around 1200 documented in this encounter Plan of Treatment Upcoming Encounters Date Type Department Care Team (Late st Contact Info) Description 07/03/2023 2:00 PM EST Laboratory Laboratory, [facility] 132 [facility] [place] [phone] [facility] 132 [facility] [address] 07/16/2023 2:30 PM EST Office Visit Rheumatology [place] [address] [facility] [place] [address] Bishop Quinones CRNP [address] [facility] [place] [address] 09/17/2023 2:40 PM EDT Office Visit [facility] [address] [place] [phone] Mark Caal MD [address] [place], [place] [address] 09/24/2023 2:00 PM EDT Laboratory Laboratory, [facility] [facility] 132 [facility] [place] [phone] Karen Olivo 132 [facility] [place] [address] 10/01/2023 2:00 PM EDT Office Visit Hematology/Oncology [facility] [place] 200 [facility] [address] Della Zhong CRNP 400 [facility] [place] [phone] Pending Results Name Type Priority Associated Diagnoses Date /Time HLA TYPING FOR CELIAC DISEASE Lab Routine Celiac disease 07/01/2023 1:20 PM EST Scheduled Orders Name Type Priority Associated Diagnoses Orde r Schedule HLA TYPING FOR CELIAC DISEASE Lab Routine Celiac disease Expected: 07/01/2023, Expires: 07/01/2024 Scheduled Procedures Name Priority Associated Diagnoses Date/Ti [...] D LEVEL ONCE IN A LIFETIME-USE SMARTSET# [id number] Completed 08/30/2022, 11/26/2019, 12/28/2013 Diabetic Eye Exam [...] this encounter Medical Devices Implanted Type Area Environmental Field Technician Device Identifier Shelf Expiration Date Model / Serial / Lot Surface Articular - [id number] Implanted:Qty: 1 on 09/15/2009 at [place] [facility] [place] Right: Knee [employer] 04/19/2015 00-5994-03 0-20 / / [id number] Clip Quick 2.8mm 230cm - [id number] Implanted:Qty: 1 on 07/25/2021 by Lisa Sullivan MD at [facility] Colon [employer] 09/17/2023 HX-202UR.A / / 15K documented as of this encounter Visit Diagnoses Diagnosis Celiac disease- Primary documented in this encounter Advance Directives Documents on File Type Date Recorded Patient Counterintelligence Agent Expl anation Advance Directives and Living Will [...] the patient have Health Care Power of Powder Loader? No Care Teams County Extension Agent Relationship Specialty Start Date End Date Mark Caal MD [address] [place] [address] PCP - General Family Medicine 07/21/18 documented as of this encounter
--- OUTSIDE RECORDS SUMMARY | 2023-08-08 12:42 | External Medical Summary | Summary of Care ---
Author Name Unknown Organization [facility] Address [address] [place] [address] Phone [phone] Care Team Providers Care Driver Trainer Name Role Phone Mark Caal MD Primary Care Provider +1- [phone] Reason for Referral * (Within 10 days (routine)) - Authorized Specialty Diagnoses / Procedures Referred By Contskye t Referred To Contact Diagnoses Celiac disease Procedures HLA TYPING FOR CELIAC DISEASE Andres Singh DO [address] [place] [address] Referral ID Status Reason Start Date Expiration Date V isits Requested Visits Authorized [id number] Authorized 07/01/2023 999 999 Reason for Visit * Reason Onset Date Comments Appointment 07/01/2023 Encounter Details Date Type Department Care Team (Late st Contact Info) Description 07/01/2023 Telephone Nephrology, [address] [address] Mahsa Calvo MD [address] [place] [address] Appointment Allergies Active Allergy Reactions Criticality [...] as of this encounter (statuses as of 07/01/2023) Medications Medication Sig Dispensed Refills Start Date [...] as of this encounter (statuses as of 07/01/2023) Active Problems Problem Noted Date Diagnosed Date [...] as of this encounter (statuses as of 07/01/2023) Resolved Problems Problem Noted Date Diagnosed Date [...] as of this encounter (statuses as of 07/01/2023) Immunizations Name Administration Dates Next Due COVID-19 mRNA, LNP-s, No Pre serve, 2-Dose Series ([place]) 03/27/2021,08/16/2020,07/19/2020 Pneumococcal Conjugate Vacc, 13 Valent (Prevnar) [...] encounter Miscellaneous Notes * Telephone Encounter - Pedro Zhong CRNP - 07/01/2023 4:06 PM EST Will be happy to see her in clinic to f/u. If no open appts, I could come over from [facility] on August 12, or at 3PM. Looks like Dr. Singh placed the HLA typing lab order. * Telephone Encounter - Zulema Jerome LPN - 07/01/2023 11:34 AM EST Noted * Telephone Encounter - Tracey Bush RN - 07/01/2023 11:12 AM EST Started new GI TE with Dr Singh's message. FYI Nephrology I was able to contact pt [...] Description 07/03/2023 2:00 PM EST Laboratory Laboratory, [facility] [address] [facility] [place] [phone] Karen Olivo [address] [facility] [place] [address] 07/16/2023 2:30 PM EST Office Visit Rheumatology [place] [address] [facility] [place], [place] [address] Bishop Quinones CRNP [facility] [place], [place] [address] 09/17/2023 2:40 PM EDT Office Visit [facility] [address] [place] [phone] Mark Caal MD [address] [place] [address] 09/24/2023 2:00 PM EDT Laboratory Laboratory, [facility] 132 [facility] [place] [phone] Karen Olivo 132 [facility] [place] [address] 10/01/2023 2:00 PM EDT Office Visit Hematology/Oncology Nal[facility] 200 [facility] [place] [address] Della Zhong CRNP [address] [place] [address] Pending Results Name Type Priority Associated Diagnoses [...] D LEVEL ONCE IN A LIFETIME-USE SMARTSET# [id number] Completed 08/30/2022, 11/26/2019, 12/28/2013 Diabetic Eye Exam [...] this encounter Medical Devices Implanted Type Area Equipment Coordinator Device Identifier Shelf Expiration Date Model / Serial / Lot Surface Articular - [id number] [place]planted:Qty: 1 on 09/15/2009 [place] [facility] Right: Knee [employer] 04/19/2015 00-5994-03 0-20 / / [id number] Clip Quick 2.8mm 230cm - [id number] Implanted:Qty: 1 on 07/25/2021 by Lisa Sullivan MD at [facility]COPY [facility] Colon [employer] 09/17/2023 HX-202UR.A / / [id number] documented as of this encounter Visit Diagnoses Diagnosis Celiac disease- Primary documented in this encounter Advance Directives Documents on File Type Date Recorded Patient Insurance Claim Auditor Expl anation Advance Directives and Living Will [...] the patient have Health Care Power of Film Inspector? No Care Teams Driver Trainer Relationship Specialty Start Date End Date Mark Caal MD [address] [facility] [place] [address] PCP - General Family Medicine 07/21/18 documented as of this encounter
--- OUTSIDE RECORDS SUMMARY | 2023-08-08 12:42 | External Medical Summary | Summary of Care ---
Author Name Unknown Organization [facility] Address [address] [facility] [place] [address] Phone [phone] Care Team Providers Care Lab Aid Name Role Phone Mark Caal MD Primary Care Provider +1- [phone] Reason for Visit * Reason Onset Date Comments Test Results Lab 07/01/2023 Appointment 07/01/2023 Encounter Details Date Type Department Care Team (Late st Contact Info) Description 07/01/2023 Telephone Gastroenterology, [facility] [address] [place] [address] Andres Singh DO [address] [place] [address] Test Results Lab; Appointment Allergies Active Allergy [...] positive 12/07/2017 07/22/2018 Carcinoma of lower outer naiza drant of breast, left 12/06/2017 07/23/2022 Major [...] EST Per Della: "Patient discharged from [facility] 06/12/23. Admitted for decompensated ADRIAN cirrhosis and [...] Team (Late st Contact Info) Description 07/01/2023 4:00 PM EST Office Visit Nephrology, [facility] [address] [place] [address] Mahsa Calvo MD 400 [place] [address] 07/03/2023 2:00 PM EST Laboratory Laboratory, [facility] 132 [facility] [place] [phone] Karen Olivo 132 [facility] [place] [address] 07/16/2023 2:30 PM EST Office Visit Rheumatology [facility] [address] [facility] [place] [address] Bishop Quinones CRNP [address] [facility] [place], [place] [address] 09/17/2023 2:40 PM EDT Office Visit [facility] [address] [place] [phone] Mark Caal MD [address] [place] [address] 09/24/2023 2:00 PM EDT Laboratory Laboratory, [facility] 132 [facility] [place] [phone] Karen Olivo [facility] [place] [address] 10/01/2023 2:00 PM EDT Office Visit Hematology/Oncology [facility] [address] [place] [address] Della Zhong CRNP [address] [place] [address] Scheduled Procedures Name Priority [...] D LEVEL ONCE IN A LIFETIME-USE SMARTSET# [id number] Completed 08/30/2022, 11/26/2019, 12/28/2013 Diabetic Eye Exam [...] this encounter Medical Devices Implanted Type Area Semiconductor Processing Technician Device Identifier Shelf Expiration Date Model / Serial / Lot Surface Articular - [id number] Implanted:Qty: 1 on 09/15/2009 at [place] [facility] [place] Right: Knee [employer] 04/19/2015 00-5994-03 0-20 / / [id number] Clip Quick 2.8mm 230cm - [id number] Implanted:Qty: 1 on 07/25/2021 by Lisa Sullivan MD at ENDOSCOPY [facility] Colon [employer] 09/17/2023 HX-202UR.A / / [id number] documented as of this encounter Advance Directives Documents on File Type Date Recorded Patient Commercial Hvac Technician Expl anation Advance Directives and Living [...] the patient have Health Care Power of Line Tester? No Care Teams Lab Aid Relationship Specialty Start Date End Date Mark Caal MD [address] [place] [address] PCP - General Family Medicine 07/21/18 documented as of this encounter
--- OUTSIDE RECORDS SUMMARY | 2023-08-08 12:42 | External Medical Summary | Summary of Care ---
Author Name Unknown Organization [facility] Address [address] [facility] [place] [address] Phone [phone] Care Team Providers Care Admitting Interviewer Name Role Phone Mark Caal MD Primary Care Provider +1- [phone] Reason for Visit * Reason Onset Date Comments Test Results Lab 07/01/2023 Appointment 07/01/2023 Encounter Details Date Type Department Care Team (Late st Contact Info) Description 07/01/2023 Telephone Gastroenterology, [facility] [address] [place] [address] Andres Singh DO [address] [place] [address] Test Results Lab; Appointment Allergies Active Allergy [...] PM EST Per Della: "Patient discharged from [facility] 06/12/23. Admitted for decompensated ADRIAN [...] Description 07/03/2023 2:00 PM EST Laboratory Laboratory, [facility] 132 [facility] [place] [phone] Karen Olivo [place] 132 [facility] [place] [address] 07/16/2023 2:30 PM EST Office Visit Rheumatology [place] [address] [facility] [place] [address] Bishop Quinones CRNP 2520 [facility] [place] [address] 09/17/2023 2:40 PM EDT Office Visit [facility] [address] [place] [phone] Mark Caal MD [address] [place] [address] 09/24/2023 2:00 PM EDT Laboratory Laboratory, [facility] 132 [facility] [place] [phone] Karen Olivo 132 [facility] [place] [address] 10/01/2023 2:00 PM EDT Office Visit Hematology/Oncology [facility] [place] 200 [facility] [place] [address] Della Zhong CRNP [address] [place] [address] Scheduled Procedures Name Priority Associated Diagnoses Date/Ti [...] D LEVEL ONCE IN A LIFETIME-USE SMARTSET# [id number] Completed 08/30/2022, 11/26/2019, 12/28/2013 Diabetic Eye Exam [...] this encounter Medical Devices Implanted Type Area Salsa Dance Instructor Device Identifier Shelf Expiration Date Model / Serial / Lot Surface Articular - [id number] Implanted:Qty: 1 on 09/15/2009 at [place] [facility] [place] Right: Knee [employer] 04/19/2015 00-5994-03 0-20 / / [id number] Clip Quick 2.8mm 230cm - [id number] Implanted:Qty: 1 on 07/25/2021 by Lisa Sullivan MD at ENDOSCOPY [facility] Colon [employer] 09/17/2023 HX-202UR.A / / [id number] documented as of this encounter Advance Directives Documents on File Type Date Recorded Patient Paving Inspector Expl anation Advance Directives and Living Will [...] the patient have Health Care Power of Granite Chip Terrazzo Finisher? No Care Teams Admitting Interviewer Relationship Specialty Start Date End Date Mark Caal MD [address] [place] [facility] [place] [address] PCP - General Family Medicine 07/21/18 documented as of this encounter
--- OUTSIDE RECORDS SUMMARY | 2023-08-08 12:42 | External Medical Summary | Summary of Care ---
Author Name Unknown Organization [facility] Address [address] [place] [address] Phone [phone] Care Team Providers Care Engineering Technology Instructor Name Role Phone Mark Caal MD Primary Care Provider +1- [phone] Encounter Details Date Type Department Care Team (Late st Contact Info) Description 07/04/2023 3:15 PM EST Scheduled Telephone Care Coordination and Integration [address] [place], [place] [phone] [facility] Commercial Lending Vice President [address] [place], [place] [phone] Allergies Active Allergy Reactions Criticality Noted Date [...] as of this encounter (statuses as of 07/04/2023) Medications Medication Sig Dispensed Refills Start Date [...] as of this encounter (statuses as of 07/04/2023) Active Problems Problem Noted Date Diagnosed Date [...] as of this encounter (statuses as of 07/04/2023) Resolved Problems Problem Noted Date Diagnosed Date [...] as of this encounter (statuses as of 07/04/2023) Immunizations Name Administration Dates Next Due COVID-19 mRNA, LNP-s, No Pre serve, 2-Dose Series ([employer]) 03/27/2021,08/16/2020,07/19/2020 Pneumococcal Conjugate Vacc, 13 Valent (Prevnar) [...] as of this encounter Progress Notes * [facility] Commercial Lending Vice President - 07/04/2023 2:30 PM EST Telemedicine visit: No [facility] Commercial Lending Vice President (RAD) documentation: RAD Spoke w/ patient Swelling in feet Did not weigh today; weight yesterday 202 lbs Reports occasional bowel issues---has trouble "getting started" but once she sits, is able to pass BM Son and DIL are TELLER VAULT's---helping w/ bathing, dressing Declines HH referral Electronically signed by C[facility] Commercial Lending Vice President at 07/04/2023 2:35 PM EST documented in this encounter Plan of Treatment Upcoming Encounters Date Type Department Care Team (Late st Contact Info) Description 07/16/2023 2:30 PM EST Office Visit Rheumatology [facility] [address] [place] [address] Bishop Quinones CRNP [address] [facility] [place] [address] 09/17/2023 2:40 PM EDT Office Visit [facility] [address] [place] [phone] Mark Caal MD [address] [place] [address] 09/24/2023 2:00 PM EDT Laboratory Laboratory, [facility] 132 [place] [phone] [facility] 132 [place] [address] 10/01/2023 2:00 PM EDT Office Visit Hematology/Oncology [facility] 200 [facility] [place] [address] Della Zhong CRNP [address] [place] [phone] Scheduled Procedures Name Priority Associated Diagnoses Date/Ti [...] D LEVEL ONCE IN A LIFETIME-USE SMARTSET# [id number] Completed 08/30/2022, 11/26/2019, 12/28/2013 Diabetic Eye Exam [...] this encounter Medical Devices Implanted Type Area Javascript Front End Developer Device Identifier Shelf Expiration Date Model / Serial / Lot Surface Articular - [id number] Implanted:Qty: 1 on 09/15/2009 at [place] [facility] [place] Right: Knee [employer] 04/19/2015 00-5994-03 0-20 / / [id number] Clip Quick 2.8mm 230cm - [id number] Implanted:Qty: 1 on 07/25/2021 by Lisa Sullivan MD at ENDOSCOPY [facility] Colon [employer] 09/17/2023 HX-202UR.A / / [id number] documented as of this encounter Advance Directives Documents on File Type Date Recorded Patient Cement Sprayer Helper Expl anation Advance Directives and Living Will [...] the patient have Health Care Power of Marketing Traffic Coordinator? No Care Teams Engineering Technology Instructor Relationship Specialty Start Date End Date Mark Caal MD [address] [place] [address] PCP - General Family Medicine 07/21/18 documented as of this encounter
--- OUTSIDE RECORDS SUMMARY | 2023-08-08 12:43 | External Medical Summary | Summary of Care ---
Author Name Unknown Organization [facility] Address [address] [facility] [place] [address] Phone [phone] Care Team Providers Care Balance Truer Name Role Phone Mark Caal MD Primary Care Provider +1- [phone] Reason for Visit * Reason Onset Date Comments Test Results Lab 07/01/2023 Appointment 07/01/2023 Encounter Details Date Type Department Care Team (Late st Contact Info) Description 07/01/2023 Telephone Gastroenterology, [facility] [address] [place] [address] Andres Singh DO [address] [place] [address] Test Results Lab; Appointment Allergies Active Allergy [...] PM EST Per Della: "Patient discharged from [facility] 06/12/23. Admitted for decompensated ADRIAN cirrhosis and [...] 07/01/2023 4:00 PM EST Office Visit Nephrology, [facility] [address] [place] [address] Mahsa Calvo MD [address] [place] [address] 07/03/2023 2:00 PM EST [facility] 132 [facility] [place] [phone] Karen Olivo 132 [facility] [place] [address] 07/16/2023 2:30 PM EST Office Visit Rheumatology [facility] [address] [facility] [place] [address] Bishop Quinones CRNP [address] [facility] [place], [place] [address] 09/17/2023 2:40 PM EDT Office Visit [facility] [address] [place] [phone] Mark Caal MD [address] [place] [address] 09/24/2023 2:00 PM EDT Laboratory [facility], [facility] 132 [facility] [place] [phone] aKren Olivo [address] [facility] [place] [address] 10/01/2023 2:00 PM EDT Office Visit Hematology/Oncology [facility] [address] [place] [address] Della Zhong CRNP [address] [place] [address] Scheduled Procedures Name Priority [...] D LEVEL ONCE IN A LIFETIME-USE SMARTSET# [id number] Completed 08/30/2022, 11/26/2019, 12/28/2013 Diabetic Eye Exam [...] this encounter Medical Devices Implanted Type Area Block Handler Device Identifier Shelf Expiration Date Model / Serial / Lot Surface Articular - [id number] [place]ed:Q[place] 1 [place] [facility] [place]: Knee [employer] 04/19/2015 00-5994-03 0-20 / / [id number] Clip Quick 2.8mm 230cm - [id number] Implanted:Qty: 1 on 07/25/2021 by Lisa Sullivan MD at ENDOSCOPY [facility] Colon [employer] 09/17/2023 HX-202UR.A / / [id number] documented as of this encounter Advance Directives Documents on File Type Date Recorded Patient Power And Recovery Supervisor Expl anation Advance Directives and Living [...] the patient have Health Care Power of Secondary Connector Armature? No Care Teams Balance Truer Relationship Specialty Start Date End Date Mark Caal MD [address] [place] [address] PCP - General Family Medicine 07/21/18 documented as of this encounter
--- OUTSIDE RECORDS SUMMARY | 2023-08-08 12:43 | External Medical Summary | Summary of Care ---
Author Name Unknown Organization [facility] Address [address] [place] [address] Phone [phone] Care Team Providers Care Nocturnist Physician Name Role Phone Mark Caal MD Primary Care Provider +1- [phone] Reason for Visit * Reason Comments Outpatient Testing * (Within 10 days (routine)) - Authorized Specialty Diagnoses / Procedures Referred By Contac t Referred To Contact Diagnoses Celiac disease Procedures HLA TYPING FOR CELIAC DISEASE Andres Singh, DO [address] [place] [address] Referral ID Status Reason Start Date Expiration Date V isits Requested Visits Authorized [id number] Authorized 07/01/2023 999 999 Encounter Details Date Type Department Care Team (Late st Contact Info) Description 07/01/2023 1:20 PM EST Laboratory Laboratory [facility] [address] [place] [phone] [place], Lab Scenery [address] [place] [address] Celiac disease Allergies Active Allergy Reactions Criticality Noted Date [...] mRNA, LNP-s, No Pre serve, 2-Dose Series ([email or web address]) 03/27/2021,08/16/2020,07/19/2020 Pneumococcal Conjugate Vacc, 13 Valent (Prevnar) [...] 07/01/2023 4:00 PM EST Office Visit Nephrology, [address] [place], [place] [address] Mahsa Calvo MD [address] [place] [address] 07/03/2023 2:00 PM EST Laboratory Laboratory, [facility] 132 [facility] [phone] Karen Olivo 132 [facility] [place] [address] 07/16/2023 2:30 PM EST Office Visit Rheumatology [place] [address]60 [facility] [place] [address] Bishop Quinones CRNP [address] [facility] [place], [place] [address] 09/17/2023 2:40 PM EDT Office Visit [facility] [address] [place] [phone] Mark Caal MD [address] [place] [address] 09/24/2023 2:00 PM EDT Laboratory Laboratory, [facility] [address] [place] [phone] Karen Olivo [address] [facility] [place] [address] 10/01/2023 2:00 PM EDT Office Visit Hematology/Oncology [employer] 200 [facility] [place] [address] Della Zhong CRNP [address] [place] [address] Pending Results Name Type Priority Associated Diagnoses Date /Time HLA TYPING FOR CELIAC DISEASE Lab Routine Celiac disease 07/01/2023 1:20 PM EST Scheduled Procedures Name Priority Associated Diagnoses Date/Ti il ESOPHAGOGASTRODUODENOSCOPY ( EGD), FLEXIBLE, TRANSORAL, DIAGNOSTIC Recall [...] D LEVEL ONCE IN A LIFETIME-USE SMARTSET# [id number] Completed 08/30/2022, 11/26/2019, 12/28/2013 Diabetic Eye Exam [...] this encounter Medical Devices Implanted Type Area Supervisor Tower Device Identifier Shelf Expiration Date Model / Serial / Lot Surface Articular - [id number] [place]ed:Q[place] 1 [place] [facility] [place]: Knee [employer] 04/19/2015 00-5994-03 0-20 / / [id number] Clip Quick 2.8mm 230cm - [id number] Implanted:Qty: 1 on 07/25/2021 by Lisa Sullivan MD at ENDOSCOPY [facility] Colon [employer] 09/17/2023 HX-202UR.A / / [id number] documented as of this encounter Visit Diagnoses Diagnosis Celiac disease documented in this encounter Advance Directives Documents on File Type Date Recorded Patient Box Worker Expl anation Advance Directives and Living [...] the patient have Health Care Power of Patient Observation Assistant? No Care Teams Nocturnist Physician Relationship Specialty Start Date End Date Mark Caal MD [address] [place] [facility] [place] [address] PCP - General Family Medicine 07/21/18 documented as of this encounter
--- OUTSIDE RECORDS SUMMARY | 2023-08-08 12:43 | External Medical Summary | Summary of Care ---
Author Name Unknown Organization [facility] Address [address] [place] [address] Phone [phone] Care Team Providers Care Aoc Director Combat Plans Officer Name Role Phone Mark Caal MD Primary Care Provider [phone]- [phone] Reason for Referral * (Within 10 days (routine)) - Authorized Specialty Diagnoses / Procedures Referred By Contskye t Referred To Contact Diagnoses Celiac disease Procedures HLA TYPING FOR CELIAC DISEASE Andres Singh DO [address] [place] [address] Referral ID Status Reason Start Date Expiration Date V isits Requested Visits Authorized [id number] Authorized 07/01/2023 999 999 Reason for Visit * Reason Onset Date Comments Appointment 07/01/2023 Encounter Details Date Type Department Care Team (Late st Contact Info) Description 07/01/2023 Telephone Nephrology, [address] [address] Mahsa Calvo MD [address] [place] [address] Appointment Allergies Active Allergy Reactions Criticality [...] mRNA, LNP-s, No Pre serve, 2-Dose Series ([employer]ioKinet[employer]) 03/27/2021,08/16/2020,07/19/2020 Pneumococcal Conjugate Vacc, 13 Valent (Prevnar) [...] encounter Miscellaneous Notes * Telephone Encounter - Zulema Jerome LPN - 07/01/2023 11:34 AM EST Noted * Telephone Encounter - Tracey Bush RN - 07/01/2023 11:12 AM EST Started new GI TE with Dr Singh's message. MAIKOLI Nephrology I was able to contact pt [...] 07/01/2023 9:03 AM EST TE per Dr Muyka He would like to have pt come in early LMM to see if he could come in around 1200 documented in this encounter Plan of Treatment Upcoming Encounters Date Type Department Care Team (Late st Contact Info) Description 07/01/2023 4:00 PM EST Office Visit Nephrology, [facility] [address] [place] [address] Mahsa Calvo MD 400 [facility] [place] [address] 07/03/2023 2:00 PM EST Laboratory Laboratory, [facility] 132 [facility] [place] [phone] Karen Olivo [address] [place] [address] 07/16/2023 2:30 PM EST Office Visit Rheumatology [facility] [address] [facility] [place] [address] Bishop Quinones CRNP [address] [facility] [place], [place] [address] 09/17/2023 2:40 PM EDT Office Visit [facility] [address] [place] [phone] Mark Caal MD [address] [place] [address] 09/24/2023 2:00 PM EDT Laboratory Laboratory, [facility] [address] [place] [phone] Karen Olivo [address] [place] [address] 10/01/2023 2:00 PM EDT Office Visit Hematology/Oncology [facility] [address] [place] [address] Della Zhong CRNP [address] [place] [address] Scheduled Orders Name Type Priority Associated [...] D LEVEL ONCE IN A LIFETIME-USE SMARTSET# [id number] Completed 08/30/2022, 11/26/2019, 12/28/2013 Diabetic Eye Exam [...] this encounter Medical Devices Implanted Type Area Sand Mixer Device Identifier Shelf Expiration Date Model / Serial / Lot Surface Articular - [id number] Implanted:Qty: 1 on 09/15/2009 at OR [facility] Right: Knee [employer] 04/19/2015 00-5994-03 0-20 / / [id number] Clip Quick 2.8mm 230cm - [id number] Implanted:Qty: 1 on 07/25/2021 by Lisa Sullivan MD at ENDOSCOPY [facility] Colon [employer] 09/17/2023 [id number]-202UR.A / / [id number] documented as of this encounter Visit Diagnoses Diagnosis Celiac disease- Primary documented in this encounter Advance Directives Documents on File Type Date Recorded Patient Student Expl anation Advance Directives and Living Will [...] the patient have Health Care Power of Performance Improvement Consultant? No Care Teams Aoc Director Combat Plans Officer Relationship Specialty Start Date End Date aMrk Caal MD [address] [facility] [place] [address] PCP - General Family Medicine 07/21/18 documented as of this encounter
--- OUTSIDE RECORDS SUMMARY | 2023-08-08 12:43 | External Medical Summary | Summary of Care ---
Author Name Unknown Organization [facility] Address [address] [place] [address] Phone [phone] Care Team Providers Care Sebd Teacher Name Role Phone Mark Caal MD Primary Care Provider +1- [phone] Reason for Referral * (Within 10 days (routine)) - Authorized Specialty Diagnoses / Procedures Referred By Contskye t Referred To Contact Diagnoses Celiac disease Procedures HLA TYPING FOR CELIAC DISEASE Andres Singh DO [address] [place] [address] Referral ID Status Reason Start Date Expiration Date V isits Requested Visits Authorized [id number] Authorized 07/01/2023 999 999 Reason for Visit * Reason Onset Date Comments Appointment 07/01/2023 Encounter Details Date Type Department Care Team (Late st Contact Info) Description 07/01/2023 Telephone Nephrology, [address] [address] Mahsa Calvo MD [address] [place] [address] Appointment Allergies Active Allergy Reactions Criticality [...] mRNA, LNP-s, No Pre serve, 2-Dose Series ([employer]) 03/27/2021,08/16/2020,07/19/2020 Pneumococcal Conjugate Vacc, 13 Valent (Prevnar) [...] 4:00 PM EST Office Visit Nephrology, [address] [place] [address] Mahsa Calvo MD 400 [facility] [place] [address] 07/03/2023 2:00 PM EST Laboratory [facility] 132 [facility] [place] [phone] [facility] 132 [facility] [place] [address] 07/16/2023 2:30 PM EST Office Visit Rheumatology [facility] [address] [place] [address] Bishop Quinones CRNP [address] [facility] [place], [place] [address] 09/17/2023 2:40 PM EDT Office Visit Family [facility] [place] [address] [place] [phone] Mark Caal MD [address] [place] [address] 09/24/2023 2:00 PM EDT Laboratory Laboratory, [facility] 132 [place] [phone] [facility] [address] [place] [address] 10/01/2023 2:00 PM EDT Office Visit Hematology/Oncology [facility] 200 [facility] [place], [place] [address] Della Zhong CRNP 400 [facility] [place] [address] Scheduled Orders Name Type Priority Associated Diagnoses [...] 3) 12/27/2013 11/01/2013 Depression Screening 07/24/2023 07/23/2022, 03/19/20 15 O2 ASSESSMENT COMPLETED IN PAST YEAR [...] D LEVEL ONCE IN A LIFETIME-USE SMARTSET# [id number] Completed 08/30/2022, 11/26/2019, 12/28/2013 Diabetic Eye Exam [...] this encounter Medical Devices Implanted Type Area Set Up Person Device Identifier Shelf Expiration Date Model / Serial / Lot Surface Articular - [id number] Implanted:Qty: 1 on 09/15/2009 at OR [facility] Right: Knee [employer] 04/19/2015 00-5994-03 0-20 / / [id number] Clip Quick 2.8mm 230cm - [id number] Implanted:Qty: 1 on 07/25/2021 by Lisa Sullivan MD at ENDOSCOPY [facility] Colon [employer] 09/17/2023 [id number]-202UR.A / / [id number] documented as of this encounter Visit Diagnoses Diagnosis Celiac disease- Primary documented in this encounter Advance Directives Documents on File Type Date Recorded Patient Collection Card Clerk Expl anation Advance Directives and Living [...] patient have Health Care Power of Supervisor Last Model Department? No Care Teams Sebd Teacher Relationship Specialty Start Date End Date Oes, Mark R, MD [address] [facility] [place] [phone] PCP - General Family Medicine 07/21/18 documented as of this encounter
--- OUTSIDE RECORDS SUMMARY | 2023-08-08 12:43 | External Medical Summary ---
Author Name Unknown Address Unknown Organization : Laboratory Report Ordering Provider Test Date Status NOEL CULP 07/01/2023 13:20:23 Final Observation Date Value Abnormality Reference (Units ) Status HLA Ag [Interpretation] 07/01/2023 13:20:23 SEE BELOW Final The patient has one of the H LA-DQ variants associated
with celiac disease.
More than 97% of celiac disease patients carry either
HLA-DQ2(DQA1*05/DQB1*02) or HLA-DQ8(DQA1*03/DQB1*0302)
or both. However, 39% of the general [place] population
carry these HLA-DQ variants, as a consequence, the
presence of HLA-DQ2 or DQ8 or both variants is not per
se diagnostic of celiac disease. Genetic counseling as
needed. HLA-DQ2 [Presence] 07/01/2023 13:20:23 Negative Final HLA-DQ8 [Presence] 07/01/2023 13:20:23 Positive Final HLA-DQA1 [Presence] 07/01/2023 13:20:23 01 Final HLA-DQA1 [Presence] 07/01/2023 13:20:23 03 Final HLA-DQB1 [Presence] 07/01/2023 13:20:23 0302 Final HLA-DQB1 [Presence] 07/01/2023 13:20:23 0503 Final RESULTS REVIEWED BY: 07/01/2023 13:20:23 SEE BELOW Final Shayla Cardenas, Ph.D., [facility]
Cracking Still Operator, Molecular Oncology
Typing performed by PCR and hybridization with sequence
specific oligonucleotide probes (SSO) using the
FDA- cleared LABType(R) SSO Kit.

Test Performed at:
[facility]
[address] [facility] [place] [address]
Sylvester Ochoa M.D., Ph.D.,Director of Laboratories Performing Location
--- OUTSIDE RECORDS SUMMARY | 2023-08-08 12:43 | External Medical Summary | Summary of Care ---
Author Name Unknown Organization [facility] Address [address] [place] [address] Phone [phone] Care Team Providers Care Youth Services Librarian Name Role Phone Mark Caal MD Primary Care Provider +1- [phone] Reason for Visit * Reason Comments Outpatient Testing * (Within 10 days (routine)) - Authorized Specialty Diagnoses / Procedures Referred By Contac t Referred To Contact Diagnoses Celiac disease Procedures HLA TYPING FOR CELIAC DISEASE Andres Singh, DO [address] [place] [address] Referral ID Status Reason Start Date Expiration Date V isits Requested Visits Authorized [id number] Authorized 07/01/2023 999 999 Encounter Details Date Type Department Care Team (Late st Contact Info) Description 07/01/2023 1:20 PM EST Laboratory Laboratory [facility] [address] [place] [phone] [place], [address] Scenery [address] [place] [address] Celiac disease Allergies Active Allergy Reactions Criticality [...] mRNA, LNP-s, No Pre serve, 2-Dose Series ([employer]) 03/27/2021,08/16/2020,07/19/2020 Pneumococcal Conjugate Vacc, 13 Valent (Prevnar) [...] 07/01/2023 4:00 PM EST Office Visit Nephrology, [address] [place], [place] [address] Mahsa Calvo MD [address] [place] [address] 07/03/2023 2:00 PM EST Laboratory Laboratory, [facility] [phone] Karen Olivo 132 [facility] [place] [address] 07/16/2023 2:30 PM EST Office Visit Rheumatology [place] [address] [facility] [place] [address] Bishop Quinones CRNP [address] [facility] [place], [place] [address] 09/17/2023 2:40 PM EDT Office Visit [facility] [address] [place] [phone] Mark Caal MD [address] [place] [address] 09/24/2023 2:00 PM EDT Laboratory Laboratory, [facility] [address] [place] [phone] Karen Olivo [facility] [place] [address] 10/01/2023 2:00 PM EDT Office Visit Hematology/Oncology [employer] 200 [place] [address] Della Zhong CRNP [address] [place] [address] Pending Results Name Type Priority Associated Diagnoses Date /Time HLA TYPING FOR CELIAC DISEASE Lab Routine Celiac disease 07/01/2023 1:20 PM EST Scheduled Procedures Name Priority Associated Diagnoses Date/Ti mo ESOPHAGOGASTRODUODENOSCOPY ( EGD), FLEXIBLE, TRANSORAL, DIAGNOSTIC Recall [...] D LEVEL ONCE IN A LIFETIME-USE SMARTSET# [id number] Completed 08/30/2022, 11/26/2019, 12/28/2013 Diabetic Eye Exam [...] this encounter Medical Devices Implanted Type Area Endoscopy Technican Device Identifier Shelf Expiration Date Model / Serial / Lot Surface Articular - [id number] Implanted:Qty: 1 on 09/15/2009 at [place] [facility] Right: Knee [employer] 04/19/2015 00-5994-03 0-20 / / [id number] Clip Quick 2.8mm 230cm - [id number] Implanted:Qty: 1 on 07/25/2021 by Lisa Sullivan MD at ENDOSCOPY [facility] Colon [employer] 09/17/2023 HX-202UR.A / / [id number] documented as of this encounter Visit Diagnoses Diagnosis Celiac disease documented in this encounter Advance Directives Documents on File Type Date Recorded Patient Preventive Maintenance Coordinator Expl anation Advance Directives and Living Will [...] the patient have Health Care Power of Pricer? No Care Teams Youth Services Librarian Relationship Specialty Start Date End Date Mark Caal MD [address] [place] [facility] [place] [address] PCP - General Family Medicine 07/21/18 documented as of this encounter
--- OUTSIDE RECORDS SUMMARY | 2023-08-08 12:43 | External Medical Summary | Summary of Care ---
Author Name Unknown Organization [facility] Address [address] [place] [address] Phone [phone] Care Team Providers Care Mat Worker Name Role Phone Mark Caal MD Primary Care Provider [phone]- [phone] Reason for Referral * Medication Prior Authorization - Pending Review Specialty Diagnoses / Procedures Referred By Brennen t Referred To Contact Diagnoses Anemia due to chronic blood loss Arjun Morrison MD [address] [place] [address] Referral ID Status Reason Start Date Expiration Date V isits Requested Visits Authorized [id number] Pending Review 999 999 Reason for Visit * Reason Comments Hospital Follow-Up Encounter Details Date Type Department Care Team (Latest Contact Info) Description 06/28/2023 11:40 AM EST Office Visit [facility] [address] [place] [facility] [place] [phone] Arjun Morrison MD [address], [place] [id number] Acute on chronic heart failure, unspecified heart failure type (HCC)*; Anemia due to chronic blood loss; Cirrhosis of liver with ascites, unspecified hepatic cirrhosis type (HCC); Hypertensive heart disease with HF (heart failure) (HCC); DOLORES (acute kidney injury) (HCC); HTN, goal below 140/90; Portal hypertension (HCC); COPD, group B, by GOLD 2017 classification (HCC); Acute diastolic congestive heart failure (HCC); Prediabetes; Nontoxic goiter, unspecified; Secondary esophageal varices without bleeding (HCC); Open-angle glaucoma, unspecified glaucoma stage, unspecified laterality, unspecified open-angle glaucoma type; Paroxysmal atrial tachycardia; Hyperlipidemia, unspecified hyperlipidemia type Allergies Active Allergy Reactions Criticality Noted Date [...] as of this encounter (statuses as of 06/28/2023) Medications Medication Sig Dispensed Refills Start Date [...] Iron-Vitamin C 65-125 MG Oral Tablet (Vitron C)Indications:Anem ia due to chronic blood loss Take 1 Tablet by mouth at bedtime. 90 Tablet 3 06/28/2023 Active Iron-Vitamin C 65-125 MG Oral Tablet (Vitron C)Indications:Anem ia due to chronic blood loss Take 1 Tablet by mouth at bedtime. 90 Tablet 3 04/02/2023 Discontinue d(Refill) documented as of this encounter (statuses as of 06/28/2023) Active Problems Problem Noted Date Diagnosed Date [...] as of this encounter (statuses as of 06/28/2023) Resolved Problems Problem Noted Date Diagnosed Date [...] as of this encounter (statuses as of 06/28/2023) Immunizations Name Administration Dates Next Due COVID-19 mRNA, LNP-s, No Pre serve, 2-Dose Series (Payment plugin) 03/27/2021,08/16/2020,07/19/2020 Pneumococcal Conjugate Vacc, 13 Valent (Prevnar) [...] Passive Smoke Exposure: Current Smokeless Tobacco: Never Tobacco Cessation:Counseling Given: Not [...] Sign Reading Time Taken Comments Blood Pressure 126/64 06/28/2023 11:45 AM EST Pulse 103 06/28/2023 11:45 AM EST Temperature 36.7 C (98 F) 06/28/2023 11:45 AM EST Respiratory Rate 16 06/28/2023 11:45 AM EST Oxygen Saturation 98% 06/28/2023 11:45 AM EST Inhaled Oxygen Concentration - - Weight 72.6 kg (160 lb) 06/28/2023 11:45 AM EST Height - - Body Mass Index 30.23 05/15/2023 3:18 PM EST documented in this encounter Functional [...] as of this encounter Progress Notes * Arjun Morrison MD - 06/28/2023 12:07 PM EST Subjective Juli Knapp is a 73 year old female. Chief Complaint Patient presents with Hospital Follow-Up HPI: Hospital discharge f/u Admission 05/15 discharge Jun 12 Dx : liver cirrhosis , acute on chronic congestive heart failure, DOLORES Taking torsemid 150 mg daily , spironolactone 25 mg daily ( should take bid though ) Chronic legs swelling Currently not taking lactulose Hypertension, CHF, paroxysmal atrial tachy , CKD, hL, Taking medication as prescribed, see med list. No medication side effects noted. Advised patient tokeep healthy life style, regular exercise with good diet, lalo. low sodium diet. And also check BP at home too. Denies associated chest discomfort, chest heaviness, chest pressure, chest tightness, palpitations Mild SOB on exertion, chronic legs swelling Eso varices, no bleeding, on PPI , related to liver cirrhosis Mild asthma/COPD , allergy , well controlled Frequent nose bleed but never been heavy preDM - diet control Hx of goiter, normal thyroid function last time PMH: Patient Active Problem List Diagnosis Code [...] Post-operative state Z98.890 S/P lumbar laminectomy Z98.890 Prediabetes R73.03 Hyperlipidemia E78.5 Secondary esophageal varices without bleeding (HCC) I85.10 Anemia due to chronic blood loss D50.0 COPD, group B, by GOLD 2017 classification (HCC) J44.9 Primary open-angle glaucoma, bilateral, mild stage H40.1131 Hypertensive heart disease with HF (heart failure) (HCC) I11.0 Acute diastolic congestive heart failure (HCC) I50.31 Open-angle glaucoma H40.10X0 Current Outpatient Medications Medication Sig Dispense Refill [...] as needed for Wheezing. 72 mL 12 Levalbuterol Tartrate 45 MCG/ACT [...] the morning and 1 Tablet before bedtime. Torsemide 100 MG Oral Tablet (Demadex) Take 1.5 Tablets by mouth in the morning. 90 Tablet 3 Spironolactone 25 MG Oral Tablet (Aldactone) Take 1 Tablet by mouth in the morning and 1 Tablet before bedtime. Ferrous Sulfate 325 (65 Fe) MG Oral Tablet (Feosol) Take 1 Tablet by mouth daily with breakfast. Potassium Chloride ER 20 MEQ Oral Tablet Extended Release Take 1 Tablet by mouth in the morning. Magnesium 400 MG Oral Capsule Take 1 Capsule by mouth in the morning and 1 Capsule before bedtime. Lactulose 10 GM/15ML Oral Solution (Constulose) Take 45 mL by mouth 3 times a day as needed for Other (Take three times a day as needed for a goal of 3-5 bowel movements a day). Iron-Vitamin C 65-125 MG Oral Tablet (Vitron C) Take 1 Tablet by mouth at bedtime. 90 Tablet 3 No current facility-administered medications [...] performed by Denise Singh MD at OR [facility] COLONOSCOPY 03/28/2011 COLONOSCOPY, DIAGNOSTIC (RECTUM) 12/10/2017 TVA polyp, repeat 6 mo/COLONOSCOPY FLEXIBLE PROXIMAL DIAGNOSTIC performed by Lisa Sullivan MD at ENDOSCOPY [facility] COLONOSCOPY, DIAGNOSTIC (RECTUM) 08/18/2018 diverticulosis, flex sig 1 yr/COLONOSCOPY FLEXIBLE PROXIMAL DIAGNOSTIC performed by Lisa Sullivan MD at ENDOS[facility] COLONOSCOPY, DIAGNOSTIC (RECTUM) 07/25/2021 adenomatous & hyperplastic polyps, repeat 3 yrs / COLONOSCOPY FLEXIBLE PROXIMAL DIAGNOSTIC performed by Lisa Sullivan MD at ENDOSCOPY [facility] EGD, FLEXIBLE, DIAGNOSTIC 11/11/2018 esophageal varices, portal hypertensive gastropathy, repeat 6 wks/ESOPHAGOGASTRODUODENOSCOPY (EGD),FLEXIBLE, TRANSORAL, DIAGNOSTIC performed by Lisa Sullivan MD at ENDOSCOPY [facility] EGD, FLEXIBLE, DIAGNOSTIC 01/26/2019 esophageal varices, portal hypertensive gastropathy, repeat 6 wks/[facility] EGD, FLEXIBLE, DIAGNOSTIC 03/23/2019 benign hyperplastic gastric polyp / [facility] EGD, FLEXIBLE, DIAGNOSTIC 01/26/2019 eso varices, repeat 6 wks/[facility] EGD, FLEXIBLE, DIAGNOSTIC 08/25/2019 portal hypertensive gastropathy, repeat 1 yr / ESOPHAGOGASTRODUODENOSCOPY (EGD), FLEXIBLE, TRANSORAL, DIAGNOSTIC performed by Lisa Sullivan MD at [facility] EGD, FLEXIBLE, DIAGNOSTIC 07/25/2021 Portal hypertensive gastropathy, sm eso varices, repeat 6 mo / ESOPHAGOGASTRODUODENOSCOPY (EGD), FLEXIBLE, TRANSORAL, DIAGNOSTIC performed by Lisa Sullivan MD at [facility] EGD, FLEXIBLE, DIAGNOSTIC N/A 09/07/2022 small hiatal hernia/grade I esophageal varices/portal hypertensive gastropathy/recall 1 year/ESOPHAGOGASTRODUODENOSCOPY (EGD), FLEXIBLE, TRANSORAL, DIAGNOSTIC performed by Lisa Sullivan MD at [facility] IDENTIFY SENTINEL NODE, RADIOACTIVE TRACER Left 10/16/2017 INJECTION PROCEDURE FOR IDENTIFICATION SENTINEL NODE performed by Denise Singh MD at [facility] SIDNEY FLEX SIGMOID DIAGNOSITIC 08/25/2019 normal, repeat 1 yr / SIGMOIDOSCOPY FLEXIBLE DIAGNOSTIC performed by Lisa Sullivan MD at END[facility] KNEE ARTHROSCOPY/MENISCECTOMY Left 07/08/2019 ARTHROSCOPY KNEE MEDIAL OR LATERAL MENISCECTOMY performed by Dahiana Madrid DO at [facility] MASTECTOMY, PARTIAL Left 10/16/2017 10/16/2017 MASTECTOMY PARTIAL performed by Denise Singh MD at [facility] PARTIAL HYSTERECTOMY 1983 REDUCTION OF BREAST Bilateral 1999 REMOVAL OF BOWEL LESION(S) 01/1998 diverticulitis REMOVAL OF OVARY/OVIDUCT(S) 1985 REMOVE ADDED SPINE LAMINA, 1 SEG N/A 09/09/2020 LAMINECTOMY FACETECTOMY AND FORAMINOTOMY ADDITIONAL LEVELS performed by Rg Stewart MD at OR [facility] REMOVE GALLBLADDER REMOVE LUMBAR SPINE LAMINA, 1 SEG N/A 09/09/2020 LAMINECTOMY FACETECTOMY AND FORAMINOTOMY LUMBAR performed by Rg Stewart MD at OR [facility] REMOVE TONSILS & ADENOIDS, UNDER 12 T & A, age<12 REPAIR BOWEL-BLADDER FISTULA 07/1998 REPAIR INITIAL INCISIONAL HERNIA 08/1999 REPAIR OF NASAL SEPTUM 2010 Nasal Septum Repair REVISE KNEE JOINT REPLACEMENT 09/15/2009 TOTAL KNEE REVISION ONE COMPONENT performed by Clem MAYO at [facility] SACROILIAC JOINT INJECT W/GUIDANCE 02/08/2020 INJECTION SACROILIAC JOINT performed by Vahid Rutherford DO at OR [facility] TENDON SHEATH INCISION, FINGER Left 05/10/2015 TRIGGER FINGER RELEASE performed by Shiv Stovall MD at OR [facility] US GUIDED BREAST BIOPSY LEFT [...] on file Tobacco Use Smoking status: Never Passive exposure: Current Smokeless tobacco: Never Vaping Use Vaping Use: [...] file Review of Systems Constitutional: Positive for activity change (better), appetite change (poor) and fatigue. Negativefor chills, diaphoresis, fever and unexpected weight change. HENT: Positive for congestion (mild) and nosebleeds (occ). Negative for postnasal drip, rhinorrhea and sore throat. Eyes: Negative for visual disturbance. Respiratory: Positive for shortness of breath (on exertion). Negative for cough, chest tightness and wheezing. Cardiovascular: Positive for leg swelling (chronic). Negative for chest pain and palpitations. Gastrointestinal: Negative for abdominal distention, abdominal pain, nausea and vomiting. Endocrine: Negative. Genitourinary: Negative for dysuria and hematuria. Musculoskeletal: Positive for arthralgias and gait problem. Skin: Negative for color change and pallor. Allergic/Immunologic: Positive for environmental allergies and immunocompromised state. Neurological: Negative for dizziness, tremors, seizures, syncope, speech difficulty, weakness, light-headedness and headaches. Hematological: Bruises/bleeds easily. Psychiatric/Behavioral: Positive for sleep disturbance. Negative for agitation and behavioral problems. Objective BP 126/64 | Pulse 103 | Temp 36.7 C (98 F) (Infrared ) | Resp 16 | Wt 72.6 kg (160 lb) | SpO2 98% | BMI 30.23 kg/m | BSA 1.77 m Physical Exam Constitutional: General: She is not in acute distress. Appearance: Normal appearance. She is not ill-appearing, toxic-appearing or diaphoretic. HENT: Head: Normocephalic and atraumatic. Nose: Nose normal. Eyes: Extraocular Movements: Extraocular movements intact. Cardiovascular: Rate and Rhythm: Normal rate and regular rhythm. Pulses: Normal pulses. Heart sounds: Murmur heard. Pulmonary: Effort: Pulmonary effort is normal. No respiratory distress. Breath sounds: Normal breath sounds. No stridor. No wheezing, rhonchi or rales. Chest: Chest wall: No tenderness. Abdominal: General: There is no distension. Palpations: Abdomen is soft. Tenderness: There is no abdominal tenderness. Musculoskeletal: General: Tenderness present. Right lower leg: Edema present. Left lower leg: Edema present. Neurological: General: No focal deficit present. Mental Status: She is alert and oriented to person, place, and time. Cranial Nerves: No cranial nerve deficit. Psychiatric: Behavior: Behavior normal. Comments: Mild anxiety ASSESSMENT/PLAN: Acute on chronic heart failure, unspecified heart failure type (HCC) (Primary) - COMPREHENSIVE METABOLIC PANEL; Future; Expected date: 06/28/2023 - TSH WITH FREE T4 IF INDICATED; Future; Expected date: 06/28/2023 - CBC WITH WBC DIFFERENTIAL AND ANEMIA REFLEX WORKUP; Future; Expected date: 06/28/2023 Anemia due to chronic blood loss - Iron-Vitamin C 65-125 MG Oral Tablet (Vitron C); Take 1 Tablet by mouth at bedtime. Cirrhosis of liver with ascites, unspecified hepatic cirrhosis type (HCC) - COMPREHENSIVE METABOLIC PANEL; Future; Expected date: 06/28/2023 - AMMONIA; Future; Expected date: 06/28/2023 Hypertensive heart disease with HF (heart failure) (HCC) - COMPREHENSIVE METABOLIC PANEL; Future; Expected date: 06/28/2023 - TSH WITH FREE T4 IF INDICATED; Future; Expected date: 06/28/2023 - CBC WITH WBC DIFFERENTIAL AND ANEMIA REFLEX WORKUP; Future; Expected date: 06/28/2023 DOLORES (acute kidney injury) (HCC) - COMPREHENSIVE METABOLIC PANEL; Future; Expected date: 06/28/2023 HTN, goal below 140/90 - TSH WITH FREE T4 IF INDICATED; Future; Expected date: 06/28/2023 - CBC WITH WBC DIFFERENTIAL AND ANEMIA REFLEX WORKUP; Future; Expected date: 06/28/2023 Portal hypertension (HCC) COPD, group B, by GOLD 2017 classification (HCC) Acute diastolic congestive heart failure (HCC) Prediabetes Nontoxic goiter, unspecified Secondary esophageal varices without bleeding (HCC) Open-angle glaucoma, unspecified glaucoma stage, unspecified laterality, unspecified open-angle glaucoma type Paroxysmal atrial tachycardia Hyperlipidemia, unspecified hyperlipidemia type Cont all current meds Keep aldactone bid And f/u blood tests /fu with nephjoyce tabor MD documented in this encounter Nursing Notes * Ewelina Haas LPN - 06/28/2023 11:42 AM EST Chief Complaint Patient presents with Hospital Follow-Up documented in this encounter Plan of Treatment Upcoming Encounters Date Type Department Care Team (Late st Contact Info) Description 07/01/2023 4:00 PM EST Office Visit Nephrology, [facility] [address] [facility] [place], [place] [address] Mahsa Calvo MD [address] [facility] [place] [address] 07/03/2023 2:00 PM EST Laboratory Laboratory, [facility] [address] [place] [phone] Karen Olivo [address] [place] [address] 07/16/2023 2:30 PM EST Office Visit Rheumatology [place] [address] [facility] [place] [address] Bishop Quinones CRNP [address] [place] [address] [place], [place] [address] 09/17/2023 2:40 PM EDT Office Visit [facility] [address] [place] [address] Mark Caal MD [address] [place] [address] 09/24/2023 2:00 PM EDT Laboratory Laboratory, [facility] [address] [facility] [place] [phone] Karen Olivo [address] [place] [address] 10/01/2023 2:00 PM EDT Office Visit Hematology/On[facility] [address] [facility] [address] Della Zhong CRNP [address] [place] [address] [place] [address] Pending Results Name Type Priority Associated Diagnoses Date /Time COMPREHENSIVE METABOLIC PANEL Lab Routine Cirrhosis of liver with ascites, unspecified hepatic cirrhosis type (HCC) Acute on chronic heart failure, unspecified heart failure type (HCC) Hypertensive heart disease with HF (heart failure) (HCC) DOLORES (acute kidney injury) (HCC) 06/28/2023 12:41 PM EST AMMONIA Lab Routine Cirrhosis of liver with ascites, unspecified hepatic cirrhosis type (HCC) 06/28/2023 12:41 PM EST TSH WITH FREE T4 IF INDICATED Lab Routine Acute on chronic heart failure, unspecified heart failure type (HCC) Hypertensive heart disease with HF (heart failure) (HCC) HTN, goal below 140/90 06/28/2023 12:41 PM EST CBC WITH WBC DIFFERENTIAL AND ANEMIA REFLEX WORKUP Lab STAT Acute on chronic heart failure, unspecified heart failure type (HCC) Hypertensive heart disease with HF (heart failure) (HCC) HTN, goal below 140/90 06/28/2023 12:41 PM EST Scheduled Orders Name Type Priority Associated Diagnoses Orde r Schedule COMPREHENSIVE METABOLIC PANEL Lab Routine Cirrhosis of liver with ascites, unspecified hepatic cirrhosis type (HCC) Acute on chronic heart failure, unspecified heart failure type (HCC) Hypertensive heart disease with HF (heart failure) (HCC) DOLORES (acute kidney injury) (HCC) Expected: 06/28/2023 (Approximate), Expires: 06/27/2024 AMMONIA Lab Routine Cirrhosis of liver with ascites, unspecified hepatic cirrhosis type (HCC) Expected: 06/28/2023, Expires: 06/28/2024 TSH WITH FREE T4 IF INDICATED Lab Routine Acute on chronic heart failure, unspecified heart failure type (HCC) Hypertensive heart disease with HF (heart failure) (HCC) HTN, goal below 140/90 Expected: 06/28/2023 (Approximate), Expires: 06/27/2024 CBC WITH WBC DIFFERENTIAL AND ANEMIA REFLEX WORKUP Lab Routine Acute on chronic heart failure, unspecified heart failure type (HCC) Hypertensive heart disease with HF (heart failure) (HCC) HTN, goal below 140/90 Expected: 06/28/2023 (Approximate), Expires: 06/28/2024 Scheduled Procedures Name Priority Associated Diagnoses Date/Ti [...] 03/0 10/2022, 01/29/2022, Additional history exists GFR 04/30/2024 04/30/2023, 1208/2022, 04/17/2023, Additional history [...] D LEVEL ONCE IN A LIFETIME-USE SMARTSET# [id number] Completed 08/30/2022, 11/26/2019, 12/28/2013 Diabetic Eye Exam [...] this encounter Medical Devices Implanted Type Area Visiting Housekeeper Device Identifier Shelf Expiration Date Model / Serial / Lot Surface Articular - [id number] Implanted:Qty: 1 on 09/15/2009 at OR [facility] Right: Knee [employer] 04/19/2015 00-5994-03 0-20 / / [id number] Clip Quick 2.8mm 230cm - [id number] Implanted:Qty: 1 on 07/25/2021 by Lisa Sullivan MD at ENDOSCOPY [facility] Colon [employer] 09/17/2023 [id number]-202UR.[id number] / [id number] documented as of this encounter Visit Diagnoses Diagnosis Acute on chronic heart failure, unspecified heart failure type (HCC)- Primary Anemia due to chronic blood loss Iron deficiency anemia secondary to blood loss (chronic) Cirrhosis of liver with ascites, unspecified hepatic cirrhosis type (HCC) Hypertensive heart disease with HF (heart failure) (HCC) Unspecified hypertensive heart disease with heart failure DOLORES (acute kidney injury) (HCC) Acute kidney failure, unspecified HTN, goal below 140/90 Unspecified essential hypertension Portal hypertension (HCC) Portal hypertension COPD, group B, by GOLD 2017 classification (HCC) Acute diastolic congestive heart failure (HCC) Acute diastolic heart failure Prediabetes Other abnormal glucose Nontoxic goiter, unspecified Secondary esophageal varices without bleeding (HCC) Esophageal varices without mention of bleeding in diseases classified elsewhere Open-angle glaucoma, unspecified glaucoma stage, unspecified laterality, unspecified open-angle glaucoma type Paroxysmal atrial tachycardia Paroxysmal supraventricular tachycardia Hyperlipidemia, unspecified hyperlipidemia type documented in this encounter Advance Directives Documents on File Type Date Recorded Patient Detail Maker And Fitter Expl anation Advance Directives and Living Will [...] the patient have Health Care Power of Vamp Maker? No Care Teams Mat Worker Relationship Specialty Start Date End Date Mark Caal MD [address] [place] [address] PCP - General Family Medicine 07/21/18 documented as of this encounter
--- OUTSIDE RECORDS SUMMARY | 2023-08-08 12:43 | External Medical Summary | Summary of Care ---
Author Name Unknown Organization [facility] Address [address] [place] [address] Phone [phone] Care Team Providers Care Upholstery Technician Name Role Phone Mark Caal MD Primary Care Provider [phone]- [phone] Reason for Referral * (Within 10 days (routine)) - Authorized Specialty Diagnoses / Procedures Referred By Contskye t Referred To Contact Diagnoses Celiac disease Procedures HLA TYPING FOR CELIAC DISEASE Andres Singh DO [address] [place] [address] Referral ID Status Reason Start Date Expiration Date V isits Requested Visits Authorized [id number] Authorized 07/01/2023 999 999 Reason for Visit * Reason Onset Date Comments Appointment 07/01/2023 Encounter Details Date Type Department Care Team (Late st Contact Info) Description 07/01/2023 Telephone Nephrology, [address] [address] Mahsa Calvo MD [address] [place] [address] Appointment Allergies Active Allergy Reactions Criticality [...] mRNA, LNP-s, No Pre serve, 2-Dose Series (TappIn) 03/27/2021,08/16/2020,07/19/2020 Pneumococcal Conjugate Vacc, 13 Valent (Prevnar) [...] encounter Miscellaneous Notes * Telephone Encounter - Tracey Bush RN [...] 07/01/2023 4:00 PM EST Office Visit Nephrology, [facility] [address] [facility] [place], [place] [address] Mahsa Calvo MD [address] [facility] [address] 07/03/2023 2:00 PM EST Laboratory Laboratory, [facility] [address] [facility] [place] [phone] [facility] [address] [facility] [place] [address] 07/16/2023 2:30 PM EST Office Visit Rheumatology [place] [address] [facility] [place], [place] [address] Bishop Quinones CRNP [address] [facility] [place], [place] [address] 09/17/2023 2:40 PM EDT Office Visit [facility] [address] [place] [address] Mark Caal MD [address] [place] [address] 09/24/2023 2:00 PM EDT Laboratory Laboratory, [facility] [address] [facility] [phone] [facility] [address] [place] [address] 10/01/2023 2:00 PM EDT Office Visit Hematology/Oncology [facility] [address] [facility] [place] [address] Della Zhong CRNP [address] [facility] [place] [address] Scheduled Orders Name Type Priority Associated Diagnoses [...] D LEVEL ONCE IN A LIFETIME-USE SMARTSET# [id number] Completed 08/30/2022, 11/26/2019, 12/28/2013 Diabetic Eye Exam [...] this encounter Medical Devices Implanted Type Area Occupational Therapist [place] Device Identifier Shelf Expiration Date Model / Serial / Lot Surface Articular - [id number] Implanted:Qty: 1 on 09/15/2009 at OR [facility] Right: Knee [employer] 04/19/2015 00-5994-03 0-20 / / [id number] Clip Quick 2.8mm 230cm - [id number] Implanted:Qty: 1 on 07/25/2021 by Lisa Sullivan MD at ENDOSCOPY [facility] Colon [email or web address] 09/17/2023 [id number] / / [id number] documented as of this encounter Visit Diagnoses Diagnosis Celiac disease- Primary documented in this encounter Advance Directives Documents on File Type Date Recorded Patient Pairer Inspector Expl anation Advance Directives and Living [...] the patient have Health Care Power of Head Men'S Golf Coach? No Care Teams Upholstery Technician Relationship Specialty Start Date End Date Mark Caal MD [address] [facility] [address] PCP - General Family Medicine 07/21/18 documented as of this encounter
--- OUTSIDE RECORDS SUMMARY | 2023-08-08 12:44 | External Medical Summary ---
Author Name Unknown Address Unknown Organization [id number]:LABORATORY [facility] - [address] [place] [address] Laboratory Report Ordering Provider Test Date Status BISHOP NATH 06/28/2023 12:41:15 Final Observation Date Value Abnormality Reference (Units ) Status TSH 06/28/2023 12:41:15 2.03 0.27-4.20 (uIU/mL) Final Performing Location LABORATORY C - [address] [place] [address]
--- OUTSIDE RECORDS SUMMARY | 2023-08-08 12:44 | External Medical Summary ---
Author Name Unknown Address Unknown Organization [id number]:LABORATORY [facility] [place] - [address] [facility] [place] [address] Laboratory Report Ordering Provider Test Date Status BISHOP NATH 06/28/2023 12:41:15 Final Observation Date Value Abnormality Reference (Units ) Status SYNC LEUKOCYTES IN BLOOD BY AUTOMATED COUNT 06/28/2023 12:41:15 7.37 4.00-10.80 (K/uL) Final Segs 06/28/2023 12:41:15 61.0 40.0-75.0 (%) Final Lymphs % 06/28/2023 12:41:15 12.2 Below low normal 18.0-42.0 (%) Final Monos 06/28/2023 12:41:15 23.5 Above high normal 1.0-11.0 (%) Final Eosinophils 06/28/2023 12:41:15 1.8 0.0-6.0 (%) Final Basos 06/28/2023 12:41:15 0.4 0.0-2.0 (%) Final Immature Granulocyte, Percent 06/28/2023 12:41:15 1.1 0.0-2.0 (%) Final Absolute Segs 06/28/2023 12:41:15 4.50 1.80-7.70 (K/uL) Final Lymphs, absolute 06/28/2023 12:41:15 0.90 Below low normal 1.00-4.80 (K/ul) Final Monos, Abs 06/28/2023 12:41:15 1.73 Above high normal 0.00-1.10 (K/uL) Final Eos, Abs 06/28/2023 12:41:15 0.13 0.00-0.70 (K/uL) Final Basos, Abs 06/28/2023 12:41:15 0.03 0.00-0.20 (K/uL) Final Immature Granulocytes, Number 06/28/2023 12:41:15 0.08 0.00-0.20 (K/uL) Final Performing Location LABORATORY [facility] [place] - [facility]ly [facility] [address] [facility] [address]
--- OUTSIDE RECORDS SUMMARY | 2023-08-08 12:44 | External Medical Summary ---
Author Name Unknown Address Unknown Organization [id number]:LABORATORY [facility] [place] - [address] [place] [address] Laboratory Report Ordering Provider Test Date Status SUEREJIBISHOP 06/28/2023 12:41:15 Final Observation Date Value Abnormality Reference (Units ) Status Vitamin B12 06/28/2023 12:41:15 1504 Above high normal 232-1245 (pg/mL) Final Performing Location LABORATORY [facility] [place] - [address] [place] [address]
--- OUTSIDE RECORDS SUMMARY | 2023-08-08 12:44 | External Medical Summary ---
Author Name Unknown Address Unknown Organization [id number]:LABORATORY [facility] [place] - [facility] [address] [place] [address] Laboratory Report Ordering Provider Test Date Status BISHOP NATH 06/28/2023 12:41:15 Final Observation Date Value Abnormality Reference (Units ) Status Retic, % (auto) 06/28/2023 12:41:15 4.15 Above high normal 0.80-1.90 (%) Final Reticulocytes, Absolute 06/28/2023 12:41:15 112.9 Above high normal 31.3-100.1 (K/uL) Final Reticulocyte fraction, immature 06/28/2023 12:41:15 26.1 Above high normal 2.5-20.6 (%) Final Reticulocyte HGB 06/28/2023 12:41:15 36.9 29.7-37.4 (pg) Final Performing Location LABORATORY [facility] [place] - [facility] [address] [place] [address]
--- OUTSIDE RECORDS SUMMARY | 2023-08-08 12:44 | External Medical Summary ---
Author Name Unknown Address Unknown Organization [id number]:[place]ORY [facility] [place] [address] [facility] [place] [address] Laboratory Report Ordering Provider Test Date Status BISHOP NATH 06/28/2023 12:41:15 Final Observation Date Value Abnormality Reference (Units ) Status BUN 06/28/2023 12:41:15 29 Above high normal 6-20 (mg/dL) Final Creatinine 06/28/2023 12:41:15 1.0 0.5-1.0 (mg/dL) Final Glomerular filtration rate/1.73 sq M.predicted [Volume Rate/Area] in Serum, Plasma or Blood by Creatinine-based formula (CKD-EPI) 06/28/2023 12:41:15 62 >=60 (mL/min) Final eGFR is calculated based on the CKD-EPI 2020 equation SODIUM 06/28/2023 12:41:15 129 Below low normal 135 -146 (mmol/L) Final Potassium 06/28/2023 12:41:15 4.5 3.5-5.1 (m mol/L) Final Cl 06/28/2023 12:41:15 92 Below low normal 98- 107 (mmol/L) Final CO2 06/28/2023 12:41:15 27 22-32 (mmo l/L) Final Anion gap 06/28/2023 12:41:15 10 7-15 (mmol /L) Final Glucose 06/28/2023 12:41:15 104 70-120 (mg /dL) Final Albumin 06/28/2023 12:41:15 3.1 Below low normal 3.8 -5.0 (g/dL) Final AST (Aspartate aminotransferase) 06/28/2023 12:41:15 63 Above high normal 10-35 (U/L) Final Alk Phos 06/28/2023 12:41:15 190 Above high normal 35 -130 (U/L) Final Bilirubin, Total 06/28/2023 12:41:15 1.7 Above high no rmal <=1.2 (mg/dL) Final Calcium 06/28/2023 12:41:15 8.6 8.4-10.2 ( mg/dL) Final Protein 06/28/2023 12:41:15 6.1 6.0-8.3 (g /dL) Final ALT (Alanine aminotransferase) 06/28/2023 12:41:15 35 10-35 (U/L) Ranjit paul Performing Location LABORATORY [facility] [place] - [address] [facility] [address]
--- OUTSIDE RECORDS SUMMARY | 2023-08-08 12:44 | External Medical Summary ---
Author Name Unknown Address Unknown Organization K01:LABORATORY [facility] [place] - [address] [facility] [place] [address] Laboratory Report Ordering Provider Test Date Status SUEREJIBISHOP 06/28/2023 12:41:15 Final Observation Date Value Abnormality Reference (Units ) Status TSH 06/28/2023 12:41:15 2.04 0.27-4.20 (uIU/mL) Final Performing Location LABORATORY C - [address] [place] [address]
--- OUTSIDE RECORDS SUMMARY | 2023-08-08 12:44 | External Medical Summary ---
Author Name Unknown Address Unknown Organization K01:LABORATORY [facility] [place] - [address] [place] [address] Laboratory Report Ordering Provider Test Date Status BISHOP NATH 06/28/2023 12:41:15 Final Observation Date Value Abnormality Reference (Units ) Status Ammonia 06/28/2023 12:41:15 51 Above high normal 11 -35 (umol/L) Final Performing Location LABORATORY [facility] - [address] [place] [address]
--- OUTSIDE RECORDS SUMMARY | 2023-08-08 12:44 | External Medical Summary ---
Author Name Unknown Address Unknown Organization K01:LABORATORY [facility] [place] - [facility] [address] [place] [address] Laboratory Report Ordering Provider Test Date Status NOEL CULP 06/28/2023 12:41:15 Final Observation Date Value Abnormality Reference (Units) Status CELIAC DISEASE SCREEN [facility] 06/28/2023 12:41:15 No serological evidence of celiac disease. Final Tissue transglutaminase IgA Ab [Units/volume] in Serum by Immunoassay 06/28/2023 12:41:15 1.2 <7 (U/mL) Final Tissue transglutaminase IgA Ab [Presence] in Serum by Immunoassay 06/28/2023 12:41:15 Negative Negative Final IgA 06/28/2023 12:41:15 446 Above high normal 70-400 (mg/dL) Final Performing Location LABORATORY [facility] [place] - [address] [place] [address]
--- OUTSIDE RECORDS SUMMARY | 2023-08-08 12:44 | External Medical Summary | Summary of Care ---
Author Name Unknown Organization [facility] Address [address] [place] [address] Phone [phone] Care Team Providers Care Ergonomist Name Role Phone Mark Caal MD Primary Care Provider [phone] Reason for Visit * Reason Comments Outpatient Testing Encounter Details Date Type Department Care Team (Late st Contact Info) Description 06/28/2023 12:40 PM EST Laboratory Laboratory, [place] [address] [place] [address] [place], Laboratory [address] [place] [address] Anemia due to chronic blood loss; PVT (portal vein thrombosis); History of breast cancer; Celiac disease; DOLORES (acute kidney injury) (HCC); Cirrhosis of liver with ascites, unspecified hepatic cirrhosis type (HCC); Acute on chronic heart failure, unspecified heart failure type (HCC); Hypertensive heart disease with HF (heart failure) (HCC); HTN, goal below 140/90 Allergies Active [...] mRNA, LNP-s, No Pre serve, 2-Dose Series ([employer]) 03/27/2021,08/16/2020,07/19/2020 Pneumococcal Conjugate Vacc, 13 Valent (Prevnar) [...] 07/01/2023 4:00 PM EST Office Visit Nephrology, [address] [place], [place] [address] Mahsa Calvo MD [address] [place] [address] 07/03/2023 2:00 PM EST Laboratory Laboratory, [facility] [address] [place] [phone] Karen Olivo [address] [facility] [place] [address] 07/16/2023 2:30 PM EST Office Visit Rheumatology [place] [id number] [facility] [place], [place] [address] Bishop Quinones CRNP [address] [place] [address] [place], [place] [address] 09/17/2023 2:40 PM EDT Office Visit [facility] [address] [place] [phone] Mark Caal MD [address] [place] [address] 09/24/2023 2:00 PM EDT Laboratory Laboratory, [facility] [address] [facility] [place] [phone] Karen Olivo [address] [facility] [place] [address] 10/01/2023 2:00 PM EDT Office Visit Hematology/Oncology Nalini Neff [place] [address] [facility], [place] [address] Della Zhong CRNP [address] [place], [place] [address] [address] Pending Results Name Type Priority Associated Diagnoses Date /Time IRON SCREEN, INCLUDING TIBC Lab STAT Anemia due to chronic blood loss PVT (portal vein thrombosis) History of breast cancer 06/28/2023 12:41 PM EST FERRITIN Lab STAT Anemia due to chronic blood loss PVT (portal vein thrombosis) History of breast cancer 06/28/2023 12:41 PM EST CELIAC DISEASE SEROLOGY REFLEX PANEL Lab Routine Celiac disease 06/28/2023 12:41 PM EST COMPREHENSIVE METABOLIC PANEL Lab Routine Cirrhosis of [...] goal below 140/90 06/28/2023 12:41 PM EST CELIAC DISEASE SEROLOGY Lab Routine Celiac disease 06/28/2023 12:41 PM EST ANEMIA CBC Lab STAT Acute on chronic heart failure, unspecified heart failure type (HCC) Hypertensive heart disease with HF (heart failure) (HCC) HTN, goal below 140/90 06/28/2023 12:41 PM EST DIFFERENTIAL, AUTOMATED Lab STAT Acute on chronic heart failure, unspecified heart failure type (HCC) Hypertensive heart disease with HF (heart failure) (HCC) HTN, goal below 140/90 06/28/2023 12:41 PM EST ANEMIA REFLEX CHEMISTRY HOLD Lab STAT Acute on chronic heart failure, unspecified heart failure type (HCC) Hypertensive heart disease with HF (heart failure) (HCC) HTN, goal below 140/90 06/28/2023 12:41 PM EST Scheduled Procedures Name Priority Associated [...] 12/06/2023 12/05/2021, 11/17, 11/24/2019, Additional history exists GFR 04/30/2024 04/30/2023, 08/2022, 04/17/2023, Additional history [...] D LEVEL ONCE IN A LIFETIME-USE SMARTSET# [id number] Completed 08/30/2022, 11/26/2019, 12/28/2013 Diabetic Eye Exam [...] this encounter Medical Devices Implanted Type Area Rivet Passer Device Identifier Shelf Expiration Date Model / Serial / Lot Surface Articular - [id number] Implanted:Qty: 1 on 09/15/2009 at OR [facility] Right: Knee [employer] 04/19/2015 [id number] 0-20 / / [id number] Clip Quick 2.8mm 230cm - [id number] Implanted:Qty: 1 on 07/25/2021 by Lisa Sullivan MD at ENDOSCOPY [facility] Colon [employer] 09/17/2023 [id number] / / [id number] documented as of this encounter Visit Diagnoses Diagnosis Anemia due to chronic blood loss Iron deficiency anemia secondary to blood loss (chronic) PVT (portal vein thrombosis) Portal vein thrombosis History of breast cancer Personal history of malignant neoplasm of breast Celiac disease DOLORES (acute kidney injury) (HCC) Acute kidney failure, unspecified Cirrhosis of liver with ascites, unspecified hepatic cirrhosis type (HCC) Acute on chronic heart failure, unspecified heart failure type (HCC) Hypertensive heart disease with HF (heart failure) (HCC) Unspecified hypertensive heart disease with heart failure HTN, goal below 140/90 Unspecified essential hypertension documented in this encounter Advance Directives Documents on File Type Date Recorded Patient Licensed Physical Therapist Assistant Expl anation Advance Directives and Living Will [...] the patient have Health Care Power of Laboratory Immunologist? No Care Teams Ergonomist Relationship Specialty Start Date End Date Mark Caal MD [address] [place] [facility] [place] [address] PCP - General Family Medicine 07/21/18 documented as of this encounter
--- OUTSIDE RECORDS SUMMARY | 2023-08-08 12:44 | External Medical Summary ---
Author Name Unknown Address Unknown Organization K01:LABORATORY [facility] [place] - [address] [place] [address] Laboratory Report Ordering Provider Test Date Status IDACASBISHOP 06/28/2023 12:41:15 Final Observation Date Value Abnormality Reference (Units ) Status Folic Acid 06/28/2023 12:41:15 13.4 >4.5 (ng/ mL) Final Performing Location LABORATORY [facility] - [address] [place] [address]
[2023-08-08] MEDS: HYDROmorphone INJ 0.5 MG/0.5 ML SYR IV PRN (13:19)
[2023-08-08] MEDS: GLYCOPYRROLATE 0.2 MG/ML VIAL IV PRN (13:19)
[2023-08-08] MEDS: LORazepam 0.5 MG in SYRINGE 0.25 ML IV PRN (17:09)
[2023-08-08] MEDS: MoRPHine SULFATE 10 MG/0.5 ML UDP PO PRN (17:53)
[2023-08-08] MEDS: ATROPINE SULFATE 1% OP SOLN 5 ML BTL SL PRN (20:01)
[2023-08-08] MEDS ORDERED: DOXYCYCLINE HYCLATE 100 MG CAP PO SCH (21:00)
--- NOTE | 2023-08-09 01:57 | Death Pronouncement Note ---
Date of Service August 09, 2023 Pronouncement Note Admission Date August 07, 2023 Date and Time of Date of : 08/09/23 Time of : 02:02 Summary Discharge summary and certificate to be completed by Dr. Nascimento. Additional Data Confirmation of : no pulse, no respirations, no heart sounds and pupils fixed and dilated Attending physician: Annmarie Nascimento MD
--- NOTE | 2023-08-09 07:23 | Discharge Summary ---
Discharge Summary Date of Service August 09, 2023 Notes For Next Care Provider pt Medication Changes From Visit None, pt Admission HPI Per Admitting Provider History obtained from patient family and records. Unable to obtain history from patient secondary to obtunded state. Medical history significant for chronic diastolic heart failure (EF 70%, TTE 2022), HTN, COPD/bronchial asthma as per records, NAFLD cirrhosis, DM2 diet- controlled, chronic hyponatremia, left breast cancer status post surgery/radiation, chronic tremors, chronic anemia (baseline hemoglobin 8-9), chronic thrombocytopenia. Monthly admissions since February 2023. Prolonged confinement from May 15, 2023 to June 12, 2023 for decompensated cirrhosis and hypervolemic hyponatremia. Patient discharged to [facility] rehab on 1.5 fluid restriction and diuretic medications as per Nephrology recommendations. took patient home a few weeks ago after being notified that insurance could not pay for [facility] stay anymore. Hyperammonemia on outpatient blood work following PCP appointment last month. Unable to contact patient/family to relay PCP recommendations for lactulose. 2 weeks ago, patient noted to be retaining fluid again as per . Patient taking medications like she should as per . No consultations done. Yesterday, patient noted to be more sleepy than usual. Seems to be coughing a lot of junk. Patient without chest pain or SOB complaints as per . No abdominal pain/black/bloody stools. Patient noted to be hypoglycemic at home by EMS. BSG 60s. Dextrose administered at home. Patient brought to ER for worsening symptoms. Lactulose administered via NGT placed at the ER. 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 Admission Exam Per Admitting Provider GENERAL: Obtunded, chronically ill, audible wheezing SKIN: Pallor, warm HEENT: pale palpebral conjunctivae, dry buccal mucosa, NGT in place NECK : Supple, no tenderness CHEST : Decreased breath sounds, occasional expiratory wheezes, no tenderness HEART : RRR, no obvious murmurs ABDOMEN: Marked distention, nontender EXTREMITIES : Minimal LE swelling, no LE tenderness, no other conspicuous deformities noted NEUROLOGIC : Obtunded, no facial asymmetry, gait and stance not assessed Principal Dx & Hospital Course #1 = Principal Diagnosis (1) Comfort measures only status: (2) Acute diastolic (congestive) heart failure: (3) Decompensated hepatic cirrhosis: (4) Anasarca: (5) Atypical pneumonia: (6) Enteritis: (7) Encephalopathy: (8) Liver cirrhosis secondary to ADRIAN: (9) History of esophageal varices: (10) DOLORES (acute kidney injury): (11) Hyponatremia: Plan Pt is a 73yoF with PMHx significant for chronic diastolic heart failure (EF 70%, TTE 2022), HTN, COPD/bronchial asthma as per records, NAFLD cirrhosis, DM2 diet- controlled, chronic hyponatremia, left breast cancer status post surgery/radiation, chronic tremors, chronic anemia (baseline hemoglobin 8-9), chronic thrombocytopenia presenting with altered mental status and trouble breathing at home. Comfort Measures Only: Pt was seen laying in bed gasping, NG tube in nares. Pt is known to the GI service. Discussion with GI. Per GI, comfort measures should be employed as pt appears to be worsened considerably from prior admissions and her baseline, volume overload did not appear reversible this time. Discussion with nephrology as well, notes anticipates pt passing in few hours to days. Called pt's in the AM. He advised further discussion with his son David who he considers her POA. Discussion with David who notes that he is not legal POA but typically relays medical information to his dad and lets him make the decisions after they discuss further. David updated on mother's course, and specialist recommendations of comfort care. He stated that he would discuss it further with his father and would advise of their decision. Later notified by nursing that pt's was at bedside. On arrival at bedside, further discussion with pt's . He stated he was going through pictures of his in his phone, showing pictures of their dog. Stated that he would like to make her comfortable. Discussion with David (pt's son) on the phone as well, indicated that they wished to make her comfortable. agreeable to removing NG tube, no antibiotics and no diuresis. Notes she has morphine allergy. Pt was made comfort measures on 08/08/23 per family's request after further discussion. Discontinued antibiotics, diuresis, NG tube. No further blood draws. PRN Dilaudid and Ativan. Other comfort measures as ordered. declines pastoral visit. Pt was previously treated for the following per previous provider with addendum: Atypical Pneumonia-Doxycycline and Unasyn Enteritis/Ileus- noted on CT abd/pelvis Hepatic encephalopathy History NAFLD cirrhosis Patient unable to comply with PCP lactulose recommendations from last month due to functional disability/home situation (patient does not seem like he is able to care for patient given her multiple medical issues) Possibly precipitated by CAP possible aspiration, possible sepsis hx chronic diastolic heart failure (EF 70%, TTE 2022), equivocal volume status as patient seems intravascularly dry albeit third spacing from NAFLD cirrhosis Acute on chronic hyponatremia secondary illness Troponin elevation secondary illness HTN, BP on the lower side COPD/bronchial asthma as per records, some wheezing noted on exam DM2 diet-controlled, well-controlled as of outpatient hemoglobin A1c of 5.2 last March 2023 Left breast cancer status post surgery/radiation chronic anemia, hemoglobin at baseline chronic thrombocytopenia secondary to liver disease PCU given troponin elevation Facilitate lactulose GI consult re: hepatic encephalopathy CS, Doxycycline and Unasyn Aspiration precautions, [facility]TAIN eval Follow troponin Nephrology consult Re: Hyponatremia, ARF IV albumin, hold home diuretic until patient seen by Nephrology ISS BG goal 1 10-1 40, carb count coverage, update hemoglobin A1c PT OT eval once medically stable. DVT prophylaxis. SCDs Re: Thrombocytopenia DNR Discharge Exam General: gasping, unresponsive Skin: bruises on skin noted Psych: mood and affect could not be determined Neuro: unresponsive to verbal stimuli or sternal rub HEENT: NC/AT, NG tube in nares CV: RRR Resp: Breath sounds rhonchus bilaterally, increased effort of breathing. Abdomen:distended Extremities: edema in extremities bilaterally. Updated Medication List Medication Instructions Recorded Confirmed Type calcium carbonate 600 mg-vitamin 1 cap PO BID 02/11/18 08/07/23 History D3 10 mcg (400 unit) capsule latanoprost 0.005 % eye drops 1 drp OPB HS 04/11/18 08/07/23 History montelukast 10 mg tablet 10 mg PO QAM 04/11/18 08/07/23 History pantoprazole 40 mg tablet,delayed 40 mg PO DAILYBB 04/11/18 08/07/23 History release levalbuterol tartrate 45 1 puff inhalation Q4H PRN Wheezing 11/11/18 08/07/23 History mcg/actuation aerosol inhaler milk thistle seed extract 175 mg 175 mg PO QAM 01/21/19 08/07/23 History tablet acetaminophen 650 mg 650 mg PO Q8H PRN Pain 07/14/20 08/07/23 History tablet,extended release (Tylenol 8 Hour) blood [facility] Verio test strips) lancets 30 gauge ([facility]ica #100 ea 07/15/20 Rx Lancets) cyclosporine 0.05 % eye drops in a 1 drp ophthalmic (eye) QAM 12/22/20 08/07/23 History dropperette (Restasis) cinnamon bark 500 mg capsule 1,000 mg PO TID 01/20/22 08/07/23 History (Cinnamon) fluticasone propionate 110 2 puff inhalation AMPM 01/20/22 08/07/23 History mcg/actuation HFA aerosol inhaler garlic 100 mg tablet 1,000 mg PO BID 01/20/22 08/07/23 History guaifenesin 100 mg/5 mL oral 200 mg (10 mL) PO Q6H PRN cough 01/22/22 08/07/23 Rx liquid (Cough Syrup) #473 mL sodium di- and 1 tab PO BID #60 tabs 03/26/23 08/07/23 Rx monophosphate-potassium phos monobasic 250 mg tablet (Phospha Neutral) docusate sodium 100 mg capsule 100 mg PO TID PRN Constipation 05/15/23 08/07/23 History iron,carbonyl 65 mg-vitamin C 125 1 tab PO HS 05/15/23 08/07/23 History mg tablet,delayed release (Vitron-C) levalbuterol HCl 1.25 mg/3 mL 1.25 mg inhalation Q4H PRN Wheezing 05/15/23 08/07/23 History solution for nebulization psyllium husk 6 gram oral powder 6 g PO TID PRN Constipation 05/15/23 08/07/23 History packet ferrous sulfate 325 mg (65 mg 325 mg PO DAILY #30 tabs 06/12/23 08/07/23 Rx iron) tablet lactulose 10 gram/15 mL (15 mL) 30 g (45 mL) PO TID PRN laxative 06/12/23 08/07/23 Rx oral solution effect #1,440 mL magnesium oxide 400 mg (241.3 mg 400 mg PO BID #60 tabs 06/12/23 08/07/23 Rx magnesium) tablet potassium chloride 20 mEq 20 meq PO QAM #30 tabs 06/12/23 08/07/23 Rx tablet,extended release(part/cryst) spironolactone 25 mg tablet 25 mg PO BID #60 tabs 06/12/23 08/07/23 Rx Saccharomyces boulardii 250 mg 250 mg PO DAILY 08/07/23 08/07/23 History capsule (Florastor) denosumab 60 mg/mL subcutaneous 60 mg subcut .[id number] 08/07/23 08/07/23 History syringe (Prolia) torsemide 100 mg tablet 150 mg PO QAM 08/07/23 08/07/23 History Hospital Stay Data Consultations 08/07/23 19:43 ED Decision to Admit Stat 08/07/23 21:04 Consult Nephrology Routine 08/07/23 23:20 Consult Gastroenterology Routine Diagnostic Imagining Performed 08/07/23 17:26 CT head/brain wo con Stat 08/07/23 21:37 CT chest diagnostic wo con Stat Chest X-Ray 08/07/23 17:25 XR chest 1V portable CLINICAL HISTORY: weakness TECHNIQUE: Single frontal radiograph of the chest was obtained. Comparison: Comparison is made to chest radiograph 05/15/2023 FINDINGS: No lines and tubes are seen. Calcified aortic knob is seen. Prominence and cephalization of the vasculature is seen. No evidence of pleural effusion or p neumothorax. IMPRESSION: Pulmonary vascular congestion. ACT 112: Negative or not required by law. Electronically signed by: Jose Landin M.D. 08/07/2023 6:[address] 08/07/23 17:26 CT head/brain wo con CLINICAL HISTORY: AMS Technique: Contiguous axial CT images of the head were acquired from the base of the skull to the vertex without intravenous contrast administration. Images were viewed in brain, subdural and bone windows. Automated dose lowering techniques and/or adjustment according to patient size were utilized for this exam. Comparison: None available at the time of this dictation. Findings: Areas of decreased attenuation are present in the periventricular and subcortical white matter bilaterally consistent with small vessel ischemic disease. Generalized cerebral atrophy with commensurate enlargement of the ventricles, sulci, and cisterns is also present. There is no acute intracranial hemorrhage or evidence of acute territorial infarction. No shift of the midline structures, mass effect, or extra-axial abnormalities are shown. Atherosclerotic calcifications are present in the intracranial segments of the internal carotid arteries. Imaged portions of the paranasal sinuses and mastoid air cells are clear. The orbits appear normal. There are no acute fractures of the calvaria or scalp swelling. Impression: No acute intracranial hemorrhage, no evidence of acute territorial infarction or other acute intracranial disease process. ACT 112: Negative or not required by law. Electronically signed by: Jose Landin M.D. 08/07/2023 6:[address] 08/07/23 21:37 Exam(s): CT CHEST Without Contrast EXAM: CT Chest Without Intravenous Contrast CLINICAL HISTORY: Reason for exam: cough. TECHNIQUE: Axial computed tomography images of the chest without intravenous contrast. CTDI is 28 mGy and DLP is 938 mGy-cm. Automated exposure control was utilized for the study. A dose lowering technique was utilized adhering to the principles of ALARA. COMPARISON: 12/22/20 FINDINGS: Evaluation is limited by motion. Heart size is normal. There is no significant coronary artery atherosclerosis. There is no pericardial effusion. Thoracic aorta is normal in caliber. Central pulmonary artery enlargement may represent pulmonary arterial hypertension. Thyroid gland is normal. There is no mediastinal, hilar, or axillary adenopathy by CT size criteria. There is a large volume of ascites beneath the right hemidiaphragm resulting in right hemidiaphragm elevation. There is right basilar compressive atelectasis. Additionally, there are patchy and widespread bilateral ground-glass infiltrates. There is no significant pleural effusion. There is no pneumothorax. There is no acute fracture or dislocation. Liver is cirrhotic. There is moderate to large ascites in the upper abdomen. Enteric tube extends to the stomach. There are fluid-filled loops of bowel. IMPRESSION: 1. Widespread and patchy bilateral ground-glass infiltrates concerning for viral/atypical pneumonia. 2. Cirrhotic liver. Moderate to large ascites. Anasarca. 3. Fluid-filled bowel may represent ileus or enteritis. Electronically signed by: Harriet Thompson M.D. 08/08/23 00:19 AM Discharge Instructions Given to Patient (Per Discharging Provider) Pt Total Time Total Time Spent Total Time Spent (In Minutes): > 30 minutes
--- NOTE | 2023-08-09 09:12 | Emergency Department Note ---
Impression & Plan Anasarca, Acute hepatic encephalopathy, Pulmonary vascular congestion ED Provider Note CHIEF COMPLAINT: Altered mental status HISTORY OF PRESENT ILLNESS: This 73-year-old female patient with a history of liver disease presents emergency department by ambulance. The patient's noticed that she was not able to transfer from the chair to the toilet as she had in the past. She required a lot of assistance, was a bit groggy and less talkative than usual. Today he thought she was just sleeping in her chair this morning but once he realized she was not responding, he called the ambulance. Patient does have a history of liver disease secondary to Donis, congestive heart failure, diabetes, hypertension, asthma, coronary artery disease and breast cancer. Her is at the bedside, but does not know much about her medications. He states she was discharged from rehab recently to home. She is in charge of her own medications, he is not certain if she has been taking her lactulose or any other medications. REVIEW OF SYSTEMS: A review of systems was performed with positives and pertinent negatives listed in the history of present illness. 10 systems were reviewed and are otherwise negative. ALLERGIES: see below MEDICATIONS: see below PMH: see below SOCIAL HISTORY: see below DDx: Hepatic encephalopathy, intracranial hemorrhage, intracranial mass, sepsis, UTI, pneumonia among others PHYSICAL EXAM: Vital signs reviewed. General: Chronically ill-appearing 73-year-old female HEENT: No scleral icterus, PERRLA, neck supple. Atraumatic. Cardiovascular: Regular rate and rhythm, no extra sounds. Pulmonary: Coarse breath sounds to auscultation bilaterally, increased work of breathing. Abdomen: Soft, nontender, nondistended, positive bowel sounds. Musculoskeletal: Atraumatic, positive peripheral edema. Neurologic: Patient is somnolent, minimally arousable. Skin: Anasarca appreciated to all extremities. Warm, dry, visible ecchymotic areas to the upper extremities. EMERGENCY DEPARTMENT COURSE/MDM: This patient was evaluated and appeared to be in an advanced encephalopathic state. It does not appear that the patient's is invested in her medical management. It seems the patient was in charge of her medications after discharge from the rehab facility. The patient was not able to appropriately respond. The patient was oxygenating appropriately however had an increased work of breathing and apparent fluid overload. She was placed on BiPAP for respiratory support. Laboratory work reveals an ammonia level of 144. An NG tube was placed by nursing staff and lactulose 60 mg was administered. Patient's high-sensitivity troponin is noted to be 122. There are no acute ST changes appreciated on EKG. patient was given 40 mg of IV Lasix. A Michaels catheter was inserted. I did discuss the case with the patient's at the bedside. He is aware of the plan for admission. MONITORING: An order for cardiac monitoring was placed and the patient is noted to be in a normal sinus rhythm at 92 beats per minute. RADIOLOGY: Chest x-ray to my interpretation reveals evidence of pulmonary vascular congestion. No focal lung consolidation otherwise. Head CT to my interpretation reveals no evidence of acute intracranial abnormality. Otherwise defer to radiology's over read. EKG: To my interpretation sinus rhythm at 93 bpm. Overall low voltage. No PVC, no PAC. QTc of 469. DISPOSITION: admission I have personally spent 50 minutes of critical care time in the direct management of this patient. This was a life/limb threatening event. This 50 minutes is in excess of all separately billable procedures. Past Med/Surg History Medical History Encounter for pre-operative examination Paroxysmal atrial tachycardia Abnormal chest x-ray Bronchitis Cirrhosis Incarcerated hernia of abdominal cavity Osteoarthritis Fibromyalgia Cirrhosis of liver not due to alcohol Thyroid goiter just monitoring for now Glaucoma bilt Migraine Sinus arrhythmia Chronic obstructive pulmonary disease Esophageal varices hx of banding Diverticulitis Malignant neoplasm of left breast, stage 1, estrogen receptor positive (09/26/17) "Status post bilateral breast reduction in 1998 Status post abnormal left breast mammogram Status post ultrasound core needle biopsy September 26, 2017 Infiltrating carcinoma, grade 2 Estrogen receptor positive, progesterone receptor positive, 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 Status post needle localization lumpectomy and sentinel lymph node biopsy October 16, 2017 Stage pT1c pN0 M0 Status post completion of radiation therapy January 01, 2018. She received 5130 cGy utilizing hypo-fractionation." On 11/19/17 11:17 Blossom Brandt wrote "Status post bilateral breast reduction in 1998 Status post abnormal left breast mammogram Status post ultrasound core needle biopsy September 26, 2017 Infiltrating carcinoma, grade 2 Estrogen receptor positive, progesterone receptor positive, 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 Status post needle localization lumpectomy and sentinel lymph node biopsy October 16, 2017 Stage pT1c pN0 M0 Status post completion of radiation therapy January 01, 2018. She received 5130 centigrade utilizing hypo-fractionation. Rectal vaginal fistula Asthma HTN (hypertension) CAD (coronary artery disease) Surgical History Status post left foot surgery planter fascitis Status post trigger finger release right thumb History of surgical removal of ganglion cyst right wrist History of repair of rectocele History of incisional hernia repair x8 History of ileostomy 1998 History of closure of ileostomy 1998---1 month after created History of bilateral salpingo-oophorectomy (BSO) History of colonoscopy History of appendectomy History of esophagogastroduodenoscopy (EGD) History of needle biopsy left breast---malignant History of lumpectomy of left breast with lymph node removal History of tonsillectomy and adenoidectomy Status post correction of deviated nasal septum History of ear surgery right ear "doctor broke my ear drum to drain the fluid" History of bilateral cataract extraction History of total right knee replacement x2 H/O arthroscopy of right knee History of cholecystectomy History of colostomy reversal 1997--8 weeks after colectomy History of partial colectomy 1997--diverticuli pocket ruptured @ [facility] H/O bilateral breast reduction surgery H/O: hysterectomy H/O tooth extraction all teeth removed Family History Sister Family history of diabetes mellitus Grandfather (Paternal) Family history of diabetes mellitus Family hx of colon cancer Grandfather (Maternal) Family history of diabetes mellitus Family/Other Family history of diabetes mellitus 2 cousins Other No family history of adverse response to anesthesia Social History Smoking Status: Never smoker Second Hand Exposure: No; Do You Dip or Chew Tobacco: No; Hx Alcohol Use: No Hx Substance Use: No Preferred Language: Sammarinese Communication Ability: Impaired Material Movers Required: No Beliefs That Will Affect Care: Denominational and Spiritual marital status: Current Living Situation: Spouse Current Living Situation Comment: From home with current occupational status: retired How many Children do You have: 1 Other Information That Helps Us Care for You: No Feels Safe at Home: Yes Assistive Devices: Denture - Upper, Denture - Lower and Glasses Allergies Allergies Allergy/AdvReac Type Severity Reaction Status Date / Time albuterol Allergy Severe HIVES, Verified 08/07/23 19:20 DIFFICULTY WALKING, SHAKINESS, STUTTERING azithromycin Allergy Severe SHORT OF Verified 08/07/23 19:20 BREATH, PALPITATIONS tramadol Allergy Severe SEE COMMENT Verified 08/07/23 19:20 ibuprofen Allergy Intermediate Hives Verified 08/07/23 19:20 cephalexin AdvReac Severe "HEART Verified 08/07/23 19:20 PALPATIONS" Opioids - Morphine Analogues AdvReac Severe "opiates Verified 08/07/23 19:20 cause decreased respirations" Opioids-Meperidine and AdvReac Severe "opiates Verified 08/07/23 19:20 Related cause decreased respirations" Opioids-Methadone and Related AdvReac Severe "opiates Verified 08/07/23 19:20 cause decreased respirations" morphine AdvReac Unknown PT STATES Verified 08/07/23 19:20 "BUILT UP A TOLERANCE TO MED, DOESN'T WORK". Home Meds Home Medications Medication Instructions Recorded Confirmed calcium carbonate 600 mg-vitamin 1 cap PO BID 02/11/18 08/07/23 D3 10 mcg (400 unit) capsule latanoprost 0.005 % eye drops 1 drp OPB HS 04/11/18 08/07/23 montelukast 10 mg tablet 10 mg PO QAM 04/11/18 08/07/23 pantoprazole 40 mg tablet,delayed 40 mg PO DAILYBB 04/11/18 08/07/23 release levalbuterol tartrate 45 1 puff inhalation Q4H PRN Wheezing 11/11/18 08/07/23 mcg/actuation aerosol inhaler milk thistle seed extract 175 mg 175 mg PO QAM 01/21/19 08/07/23 tablet acetaminophen 650 mg 650 mg PO Q8H PRN Pain 07/14/20 08/07/23 tablet,extended release (Tylenol 8 Hour) cyclosporine 0.05 % eye drops in a 1 drp ophthalmic (eye) QAM 12/22/20 08/07/23 dropperette (Restasis) cinnamon bark 500 mg capsule 1,000 mg PO TID 01/20/22 08/07/23 (Cinnamon) fluticasone propionate 110 2 puff inhalation AMPM 01/20/22 08/07/23 mcg/actuation HFA aerosol inhaler garlic 100 mg tablet 1,000 mg PO BID 01/20/22 08/07/23 docusate sodium 100 mg capsule 100 mg PO TID PRN Constipation 05/15/23 08/07/23 iron,carbonyl 65 mg-vitamin C 125 1 tab PO HS 05/15/23 08/07/23 mg tablet,delayed release (Vitron-C) levalbuterol HCl 1.25 mg/3 mL 1.25 mg inhalation Q4H PRN Wheezing 05/15/23 08/07/23 solution for nebulization psyllium husk 6 gram oral powder 6 g PO TID PRN Constipation 05/15/23 08/07/23 packet Saccharomyces boulardii 250 mg 250 mg PO DAILY 08/07/23 08/07/23 capsule (Florastor) denosumab 60 mg/mL subcutaneous 60 mg subcut .[id number] 08/07/23 08/07/23 syringe (Prolia) torsemide 100 mg tablet 150 mg PO QAM 08/07/23 08/07/23 Previous Rx's Medication Instructions Recorded blood sugar diagnostic (OneTouch #50 ea 07/15/20 Verio test strips) lancets 30 gauge (OneTouch Delica #100 ea 07/15/20 Lancets) guaifenesin 100 mg/5 mL oral 200 mg (10 mL) PO Q6H PRN cough 01/22/22 liquid (Cough Syrup) #473 mL sodium di- and 1 tab PO BID #60 tabs 03/26/23 monophosphate-potassium phos monobasic 250 mg tablet (Phospha Neutral) ferrous sulfate 325 mg (65 mg 325 mg PO DAILY #30 tabs 06/12/23 iron) tablet lactulose 10 gram/15 mL (15 mL) 30 g (45 mL) PO TID PRN laxative 06/12/23 oral solution effect #1,440 mL magnesium oxide 400 mg (241.3 mg 400 mg PO BID #60 tabs 06/12/23 magnesium) tablet potassium chloride 20 mEq 20 meq PO QAM #30 tabs 06/12/23 tablet,extended release(part/cryst) spironolactone 25 mg tablet 25 mg PO BID #60 tabs 06/12/23 Results & Data (ED) Home Medications Current Medication List: was personally reviewed by me Laboratory Data Attestation: I reviewed the patient's lab results. 08/08/23 06:50 08/08/23 06:50 Lab Results 08/07/23 08/07/23 08/07/23 Range/Units 18:05 18:26 18:30 WBC 11.90 H (4.8-10.8) K/ul RBC 2.67 L (4.20-5.40) M/uL Hgb 8.6 L (12.0-16.0) g/dl Hct 25.4 L (37.0-47.0) % MCV 95.1 (80.0-100.0) fL MCH 32.2 (25.0-34.0) pg MCHC 33.9 (32.0-36.0) g/dL RDW Std Deviation 57.2 H (36.4-46.3) fL RDW Coeff of Monster 16.5 H (11.5-14.5) % Plt Count 143 (130-400) K/uL MPV 9.2 L (9.4-12.4) fL Immature Gran % (Auto) 0.4 % Neut % (Auto) 78.8 % Lymph % (Auto) 4.8 % Boyle % (Auto) 15.9 % Eos % (Auto) 0.0 % Baso % (Auto) 0.1 % Neut # (Auto) 9.38 H (1.40-6.50) K/uL Lymph # (Auto) 0.57 L (1.20-3.40) K/uL Boyle # (Auto) 1.89 H (0.11-0.59) K/uL Eos # (Auto) 0.00 (0.00-0.50) K/uL Baso # (Auto) 0.01 (0.00-0.20) K/uL Immature Gran # (Auto) 0.05 (0.01-0.20) K/uL PT 13.5 H (9.0-12.0) Seconds INR 1.2 H (0.9-1.1) Sodium 129 L (136-145) mmol/L Potassium 5.5 H (3.5-5.1) mmol/L Chloride 101 (98-107) mmol/L Carbon Dioxide 18 L (21-32) mmol/L Anion Gap 10 (3-11) BUN 38 H (6-23) mg/dl Creatinine 1.22 H (0.6-1.2) mg/dl Est Cr Clr Drug Dosing Not Reportable Est GFR ( Amer) 51.6 ml/min Est GFR (Non-Af Amer) 44.5 ml/min BUN/Creatinine Ratio 31.1 H (10-20) Glucose 97 (70-99(Fasting)) mg/dl Estimat Average Glucose 94 mg/dl Hemoglobin A1c 4.9 (4.5-5.6) % Osmolality 282 (280-300) mOsm/kg Lactate 2.1 H* (0.4-2.0) mmol/L Calcium 8.3 L (8.6-10.3) mg/dl Magnesium 2.3 (1.7-2.4) mg/dl Total Bilirubin 2.7 H (0.2-1.0) mg/dl AST 76 H (13-39) U/L ALT 36 (7-52) U/L Alkaline Phosphatase 212 H (34-104) U/L Ammonia 144.0 H (18-72) umol/L Total Creatine Kinase (26-192) U/L Troponin I High Sens 122.2 H* (0-14) pg/ml Total Protein 6.0 (6.0-8.3) gm/dl Albumin 2.5 L (3.4-5.0) gm/dl Globulin 3.5 (2.5-4.0) gm/dl Albumin/Globulin Ratio 0.7 L (0.9-2) TSH 2.593 (0.300-4.500) uIu/ml Urine Color Dark Yellow Urine Appearance Clear (Clear) Urine pH 5.5 (4.5-7.5) Ur Specific [place] 1.019 (1.000-1.030) Urine Protein Negative (Negative) Urine Glucose (UA) Negative (Negative) Urine Ketones 1+ H (Negative) Urine Blood Negative (Negative) Urine Nitrite Negative (Negative) Urine Bilirubin Negative (Negative) Urine Urobilinogen Negative (Negative) Ur Leukocyte Esterase Negative (Negative) 08/07/23 Range/Units 20:58 WBC (4.8-10.8) K/ul RBC (4.20-5.40) M/uL Hgb (12.0-16.0) g/dl Hct (37.0-47.0) % MCV (80.0-100.0) fL MCH (25.0-34.0) pg MCHC (32.0-36.0) g/dL RDW Std Deviation (36.4-46.3) fL RDW Coeff of Monster (11.5-14.5) % Plt Count (130-400) K/uL MPV (9.4-12.4) fL Immature Gran % (Auto) % Neut % (Auto) % Lymph % (Auto) % Boyle % (Auto) % Eos % (Auto) % Baso % (Auto) % Neut # (Auto) (1.40-6.50) K/uL Lymph # (Auto) (1.20-3.40) K/uL Boyle # (Auto) (0.11-0.59) K/uL Eos # (Auto) (0.00-0.50) K/uL Baso # (Auto) (0.00-0.20) K/uL Immature Gran # (Auto) (0.01-0.20) K/uL PT (9.0-12.0) Seconds INR (0.9-1.1) Sodium (136-145) mmol/L Potassium 5.6 H (3.5-5.1) mmol/L Chloride (98-107) mmol/L Carbon Dioxide (21-32) mmol/L Anion Gap (3-11) BUN (6-23) mg/dl Creatinine (0.6-1.2) mg/dl Est Cr Clr Drug Dosing Est GFR ( Amer) ml/min Est GFR (Non-Af Amer) ml/min BUN/Creatinine Ratio (10-20) Glucose (70-99(Fasting)) mg/dl Estimat Average Glucose mg/dl Hemoglobin A1c (4.5-5.6) % Osmolality (280-300) mOsm/kg Lactate 2.3 H* (0.4-2.0) mmol/L Calcium (8.6-10.3) mg/dl Magnesium (1.7-2.4) mg/dl Total Bilirubin (0.2-1.0) mg/dl AST (13-39) U/L ALT (7-52) U/L Alkaline Phosphatase (34-104) U/L Ammonia (18-72) umol/L Total Creatine Kinase 336 H (26-192) U/L Troponin I High Sens 110.3 H* (0-14) pg/ml Total Protein (6.0-8.3) gm/dl Albumin (3.4-5.0) gm/dl Globulin (2.5-4.0) gm/dl Albumin/Globulin Ratio (0.9-2) TSH (0.300-4.500) uIu/ml Urine Color Urine Appearance (Clear) Urine pH (4.5-7.5) Ur Specific [place] (1.000-1.030) Urine Protein (Negative) Urine Glucose (UA) (Negative) Urine Ketones (Negative) Urine Blood (Negative) Urine Nitrite (Negative) Urine Bilirubin (Negative) Urine Urobilinogen (Negative) Ur Leukocyte Esterase (Negative) Administered Medications Discontinued Medications Atropine Sulfate (Atropine Sulfate 1% Op Soln 5 Ml Btl) 4 drops SL Q1H PRN PRN Reason: Secretions or pulm congestion Stop: 09/07/23 12:23 Last Admin: 08/08/23 23:30 Dose: 4 drops Documented By: Admin: 08/08/23 21:28 Dose: 4 drops Documented By: Admin: 08/08/23 20:01 Dose: 4 drops Documented By: DAKiya Dextrose (Dextrose 50% 50 Ml Syringe) 50 ml IV NOW ONE Stop: 08/07/23 23:45 Last Admin: 08/08/23 00:09 Dose: 50 ml Documented By: DROPHAMMER OPERATOR Ferrous Sulfate (Ferrous Sulfate 325 Mg Tab) 325 mg PO DAILY WILLOW Stop: 09/07/23 08:59 Last Admin: 08/08/23 10:06 Dose: 325 mg Documented By: MRT Fluticasone Furoate (Fluticasone Furoate 200mcg 14 Puffs/Inhaler) 1 puffs INH HS WILLOW Stop: 09/06/23 23:44 Last Admin: 08/08/23 01:27 Dose: Not Given Documented By: DROPHAMMER OPERATOR Furosemide (Furosemide 40 Mg/4 Ml Vial) 40 mg IV ONE ONE Stop: 08/07/23 17:27 Last Admin: 08/07/23 18:20 Dose: 40 mg Documented By: LCD Glycopyrrolate (Glycopyrrolate 0.2 Mg/Ml Vial) 0.2 mg IV Q4H PRN PRN Reason: Secretions or Pulm Congestion Stop: 09/07/23 12:23 Last Admin: 08/08/23 17:12 Dose: 0.2 mg Documented By: Admin: 08/08/23 13:19 Dose: 0.2 mg Documented By: SERA Hydromorphone HCl (Hydromorphone Inj 0.5 Mg/0.5 Ml Syr) 0.25 mg IV NOW STA Stop: 08/08/23 10:51 Last Admin: 08/08/23 11:15 Dose: 0.25 mg Documented By: SERA Hydromorphone HCl (Hydromorphone Inj 0.5 Mg/0.5 Ml Syr) 0.5 mg IV Q4H PRN PRN Reason: Pain or Respiratory Distress Stop: 08/22/23 12:23 Last Admin: 08/08/23 17:13 Dose: 0.5 mg Documented By: Admin: 08/08/23 13:19 Dose: 0.5 mg Documented By: SERA Albumin Human (Albumin 25%) 25 gm in 100 mls @ 50 mls/hr IV ONE ONE Stop: 08/07/23 21:43 Last Infusion: 08/07/23 22:20 Dose: Infused Documented By: Admin: 08/07/23 20:18 Dose: 50 mls/hr Documented By: BERKLEY Calcium Gluconate 1,000 mg/ (Sodium Chloride) 60 mls @ 240 mls/hr IV NOW ONE Stop: 08/07/23 23:44 Last Infusion: 08/08/23 00:25 Dose: Infused Documented By: Admin: 08/08/23 00:10 Dose: 240 mls/hr Documented By: MIGUEL Insulin Human Regular 5 units/ (Syringe) 5 mls @ 10 mls/min IV ONE ONE Stop: 08/07/23 23:46 Last Admin: 08/08/23 00:10 Dose: 10 mls/min Documented By: MIGUEL Co-signed By: RAYMOND Albumin Human (Albumin 25%) 25 gm in 100 mls @ 50 mls/hr IV ONE ONE Stop: 08/08/23 01:59 Last Infusion: 08/08/23 02:32 Dose: Infused Documented By: Admin: 08/08/23 00:32 Dose: 50 mls/hr Documented By: DROPHAMMER OPERATOR Albumin Human (Albumin 25%) 25 gm in 100 mls @ 50 mls/hr IV Q8H [facility] Stop: 08/11/23 07:59 Last Infusion: 08/08/23 13:14 Dose: Infused Documented By: Admin: 08/08/23 11:16 Dose: 50 mls/hr Documented By: MRT Doxycycline Hyclate 100 mg/ (Dextrose) 100 mls @ 50 mls/hr IV NOW STA Stop: 08/08/23 02:25 Last Infusion: 08/08/23 04:05 Dose: Infused Documented By: DROPHAMMER OPERATOR Admin: 08/08/23 02:05 Dose: 50 mls/hr Documented By: DROPHAMMER OPERATOR Ampicillin Sodium/Sulbactam Sodium 3,000 mg/ Sodium Chloride 100 mls @ 100 mls/hr IV Q6H [facility] Stop: 08/15/23 03:29 Last Infusion: 08/08/23 11:05 Dose: Infused Documented By: MRNicole Admin: 08/08/23 10:07 Dose: 100 mls/hr Documented By: MRNicole Infusion: 08/08/23 05:00 Dose: Infused Documented By: DROPHAMMER OPERATOR Admin: 08/08/23 04:00 Dose: 100 mls/hr Documented By: DROPHAMMER OPERATOR Lorazepam 0.5 mg/ Syringe 0.5 mls @ 2 mls/min IV Q4H PRN; Protocol PRN Reason: Anxiety/Agitation Stop: 09/07/23 12:23 Last Admin: 08/08/23 17:09 Dose: 2 mls/min Documented By: SERA Insulin Aspart (Insulin Aspart Per Unit Charge) 0 units SC ACHS WILLOW Stop: 09/06/23 21:09 Last Admin: 08/08/23 13:11 Dose: Not Given Documented By: Admin: 08/08/23 07:05 Dose: Not Given Documented By: MRNicole Admin: 08/07/23 21:40 Dose: Not Given Documented By: LCD Ipratropium [place]field (Ipratropium [place] Neb Soln 0.02% 0.5mg/2.5ml Vial) 0.5 mg NEB NOW STA Stop: 08/07/23 20:55 Last Admin: 08/07/23 21:33 Dose: 0.5 mg Documented By: LCD Lactulose (Lactulose Syrup 30 Gm/45 Ml Udp) 60 gm NG NOW STA Stop: 08/07/23 19:31 Last Admin: 08/07/23 19:55 Dose: 60 gm Documented By: MARGARETTE Lactulose (Lactulose Syrup 30 Gm/45 Ml Udp) 30 gm NG TID [facility] Stop: 09/07/23 00:29 Last Admin: 08/08/23 10:06 Dose: 30 gm Documented By: Admin: 08/08/23 00:58 Dose: 30 gm Documented By: DROPHAMMER OPERATOR Latanoprost (Latanoprost 0.005% Op Soln 2.5 Ml Btl) 1 drops OPB HS [facility] Stop: 09/06/23 23:19 Last Admin: 08/07/23 23:57 Dose: 1 drops Documented By: MIGUEL Levalbuterol HCl (Levalbuterol 1.25 Mg/3 Ml Neb) 1.25 mg NEB NOW STA Stop: 08/07/23 20:55 Last Admin: 08/07/23 21:33 Dose: 1.25 mg Documented By: BERKLEY Miconazole Nitrate (Miconazole Nitrate Powder 85 Gm) 1 appln EXT BID [facility] Stop: 09/07/23 04:24 Last Admin: 08/08/23 05:40 Dose: 1 appln Documented By: MIGUEL Midodrine (Midodrine Hcl 10 Mg Tab) 10 mg PO TID@0800,1200,1700 [facility] Stop: 09/07/23 11:59 Last Admin: 08/08/23 11:18 Dose: 10 mg Documented By: MRT Montelukast Sodium (Montelukast Sodium 10 Mg Tablet) 10 mg PO QAM [facility] Stop: 09/07/23 08:59 Last Admin: 08/08/23 10:06 Dose: 10 mg Documented By: MRT Morphine Sulfate (Morphine Sulfate 10 Mg/0.5 Ml Udp) 5 mg PO Q3H PRN PRN Reason: Pain or Respiratory Distress Stop: 08/22/23 12:23 Last Admin: 08/08/23 17:53 Dose: 5 mg Documented By: MRT Pantoprazole Sodium (Pantoprazole 40 Mg Tab) 40 mg PO DAILYBB [facility] Stop: 09/07/23 06:29 Last Admin: 08/08/23 04:06 Dose: Not Given Documented By: DROPHAMMER OPERATOR Saccharomyces Boulardii (Saccharomyces Boulardii 250 Mg Cap) 250 mg PO DAILY [facility] Stop: 09/07/23 08:59 Last Admin: 08/08/23 10:06 Dose: 250 mg Documented By: MRT Sodium Bicarbonate (Sodium Bicarb 8.4% Inj 50 Meq/50 Ml Syr) 50 meq IV NOW STA Stop: 08/07/23 19:45 Last Admin: 08/07/23 20:15 Dose: 50 meq Documented By: LCD Imaging Data Radiologist's Impression: Chest X-Ray 08/07/23 17:25 XR chest 1V portable CLINICAL HISTORY: weakness TECHNIQUE: Single frontal radiograph of the chest was obtained. Comparison: Comparison is made to chest radiograph 05/15/2023 FINDINGS: No lines and tubes are seen. Calcified aortic knob is seen. Prominence and cephalization of the vasculature is seen. No evidence of pleural effusion or pneumothorax. IMPRESSION: Pulmonary vascular congestion. ACT 112: Negative or not required by law. Electronically signed by: Jose Landin M.D. 08/07/2023 6:[address] 08/07/23 17:26 CT head/brain wo con CLINICAL HISTORY: AMS Technique: Contiguous axial CT images of the head were acquired from the base of the skull to the vertex without intravenous contrast administration. Images were viewed in brain, subdural and bone windows. Automated dose lowering techniques and/or adjustment according to patient size were utilized for this exam. Comparison: None available at the time of this dictation. Findings: Areas of decreased attenuation are present in the periventricular and subcortical white matter bilaterally consistent with small vessel ischemic disease. Generalized cerebral atrophy with commensurate enlargement of the ventricles, sulci, and cisterns is also present. There is no acute intracranial hemorrhage or evidence of acute territorial infarction. No shift of the midline structures, mass effect, or extra-axial abnormalities are shown. Atherosclerotic calcifications are present in the intracranial segments of the internal carotid arteries. Imaged portions of the paranasal sinuses and mastoid air cells are clear. The orbits appear normal. There are no acute fractures of the calvaria or scalp swelling. Impression: No acute intracranial hemorrhage, no evidence of acute territorial infarction or other acute intracranial disease process. ACT 112: Negative or not required by law. Electronically signed by: Jose Landin M.D. 08/07/2023 6:07 PM Discharge Plan Visit Data Chief Complaint: Altered Mental Status Stated Complaint: STROKE ED Provider: Kimi Stanton Discharge Problem: Anasarca, Acute hepatic encephalopathy, Pulmonary vascular congestion Patient Disposition: Admitted As Inpatient Discharge Instructions Interventions: ED Discharge Assessment Last Done: 08/07/23 22:36
== END 2023-08-09 03:04 | disposition expired | DRG 442 ==
LOC: ED 17:12 → 4W 20:59 → 3E 08-08 21:07